=== PATIENT | male | born 1945 | race Caucasian/White ===

== ENCOUNTER 2019-02-06 02:04 | Inpatient (IN) ==
[~2019-02-06 02:04] MED LIST: RAPID SEQUENCE INDUCTION BAG ONE
[2019-02-06 02:23] LABS: Hematocrit (blood only) 34.8 % (42-52); Hemoglobin 11.5 g/dL (14.0-18.0); Mean Corpuscular Hemoglobin 28.7 pg (25-34); Mean Corpuscular Volume 86.8 fL (80-100); Mean Platelet Volume 9.3 fL (7.4-10.4); Platelet Count 322 K/uL (130-400); RDW Coefficient of Variation 14.8 % (11.5-14.5); Red Blood Count 4.01 M/uL (4.7-6.1); White Blood Count 8.66 K/uL (4.8-10.8)
[2019-02-06 02:34] LABS: Partial Thromboplastin Time 26.2 Seconds (21.0-31.0); Prothrombin Time 10.3 Seconds (9.0-12.0)
[2019-02-06 02:44] LABS: Alanine Aminotransferase 17 U/L (12-78); Albumin Level 3.1 gm/dl (3.4-5.0); Aspartate Aminotransferase 11 U/L (15-37); BUN Creatinine Ratio 11.1 (10-20); Blood Urea Nitrogen 16 mg/dl (7-18); Carbon Dioxide 21 mmol/L (21-32); Chloride 102 mmol/L (98-107); Est GFR (African American) 57.7; Est GFR (Non-African American) 49.8; Glucose 159 mg/dl (70-99); Magnesium 1.6 mg/dl (1.8-2.4); Sodium 139 mmol/L (136-145)
[2019-02-06 02:48] LABS: Albumin Globulin Ratio 0.7 (0.9-2); Alkaline Phosphatase 104 U/L (45-117); Bilirubin,Total 0.3 mg/dl (0.2-1); Globulin 4.5 gm/dl (2.5-4.0); Total Protein 7.6 gm/dl (6.4-8.2); Troponin I < 0.015 ng/ml (0-0.045)
[2019-02-06] MEDS ORDERED: NOREPINEPHRINE (Adult) 8 MG in DEXTROSE 5% 500 ML IV PRN (02:50)
[2019-02-06 03:25] LABS: ALC (manual) 5.35 K/uL (1.2-3.4); ANC (manual) 2.56 K/uL (1.4-6.5); Eosinophils # (manual) 0.37 K/uL (0-0.5); Eosinophils % (manual) 4.3 %; Large Granular Lymph # (manua 2.04 K/uL; Large Granular Lymph % (manual) 23.5 %; Lymphocytes # (manual) 3.32 K/uL (1.2-3.4); Lymphocytes % (manual) 38.3 %; Monocytes # (manual) 0.37 K/uL (0.11-0.59); Monocytes % (manual) 4.3 %; Neutrophils # (manual) 2.56 K/uL (1.4-6.5); Neutrophils % (manual) 29.6 %; Polychromasia 1+
[2019-02-06] MEDS ORDERED: ALTEPLASE For Stroke IV STA (03:42)
[2019-02-06] MEDS ORDERED: OPTIRAY 320 125ml IV PRN (03:51)
[2019-02-06] MEDS ORDERED: Alteplase Bolus 9 MG in SYRINGE 0 ML IV ONE (03:53)
[2019-02-06] MEDS ORDERED: ALTEPLASE, RECOMBINANT 81 MG in EMPTY BAG 0 ML IV ONE (03:54)
[2019-02-06] MEDS ORDERED: PRIMARY PLUMSET, PE LINED TUBING, 113 IN, NON-DEHP (2260-0500) IV ONE (03:54)
--- NOTE | 2019-02-06 05:59 | XRay Report ---
ORBIT RADIOGRAPHS 3 VIEWS HISTORY: pre-MRI screening. COMPARISON: None. FINDINGS: There are no radiopaque foreign bodies identified within the orbits. Left common carotid st ent is noted. IMPRESSION: No radiopaque foreign bodies identified within the orbits. Electronically signed by: Segundo Brown M.D. 02/06/2019 5:57 AM
--- NOTE | 2019-02-06 06:11 | CT Scan Report ---
CT head/brain wo con CT DOSE: 614.27 mGy.cm HISTORY: Stroke evaluation TECHNIQUE: Multiaxial CT images of the head were performed without the use of intravenous contrast. A dose lowering technique was utilized adhering to the principles of ALARA. Comparison: None. Findings: The paranasal sinuses and mastoid air cells are clear. The calvarium and skull base are int act. The ventricles and sulci are within normal limits. There is no mass, hematoma, midline shift, or acute infarct. Small old infarcts left superior parietal lobe as well as left occipital lobe. Modera te age-related chronic small vessel change. Impression: No acute intracranial abnormality. Chronic and age-related change. The above report was generated using voice recognition software. It may contain grammatical, syntax or spelling errors. Electronically signed by: Jimy Dejesus M.D. 02/06/2019 6:10 AM
--- NOTE | 2019-02-06 06:22 | XRay Report ---
XR chest 1V portable CLINICAL HISTORY: eval ET tube placement tube position COMPARISON STUDY: No previous studies for comparison. FINDINGS: Moderate cardiomegaly. Probable pleural effusion versus consolidation left base. Prominent pulmonary vasculature. Endotracheal tube 3.5 cm from the chandler. IMPRESSION: Congestive heart failure. Left basilar pleural effusion versus left basilar consolidativ e changes. Endotracheal tube 3.5 cm above the chandler. Several left-sided rib fractures. Postoperative changes thoracolumbar spine. The above report was generated using voice recognition software. It may contain grammatical, syntax or spelling errors. Electronically signed by: Jimy Dejesus M.D. 02/06/2019 6:20 AM
[2019-02-06] MEDS ORDERED: ICU PROTOCOL FOR HYPERGLYCEMIA PRN (06:42)
[2019-02-06] MEDS ORDERED: SENNA 8.6 MG TAB PO PRN (06:42)
[2019-02-06] MEDS ORDERED: SODIUM CHLORIDE 0.9% 1000ML 1,000 ML IV SCH (06:42)
[2019-02-06] MEDS ORDERED: MIDAZOLAM HCL 1 MG/ML 2ML VIAL IV PRN ×2 (06:42→09:57)
[2019-02-06] MEDS ORDERED: PHARMACIST DISCHARGE MED REC CONSULT PRN (06:44)
[2019-02-06] MEDS ORDERED: MIDAZOLAM HCL 5 MG/ML 1 ML VIAL ONE (06:46)
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
[2019-02-06] MEDS ORDERED: MIDAZOLAM HCL 5 MG/ML 1 ML VIAL IV PRN (06:53)
--- NOTE | 2019-02-06 06:54 | CT Scan Report ---
CT angio neck with con, CT angio head w con CLINICAL HISTORY: 73 years-old Male with eval for stroke. Acute strokelike symptoms COMPARISON STUDY: Head CT of same day TECHNIQUE: Following the IV administration of 119 mL of Optiray 320, CT angiogram of the head and nec k was performed from the aortic arch to the skull apex. Images are reviewed in the axial, sagittal, a nd coronal planes. 3-D MIPS images are created and assessed. IV contrast was administered without com plication. All measurements were calculated based on NASCET criteria. A dose lowering technique was utilized adhering to the principles of ALARA. CT DOSE: 714.03 mGy.cm FINDINGS: Study is limited secondary to artifact from spinal fusion hardware. Opacified pulmonary arterial tree is unremarkable. Severe mixed plaque of the thoracic aortic arch. Less than 50% luminal narrowing in volves the origin of the left subclavian artery. 60% luminal narrowing involves the proximal right benton bclavian artery secondary to mixed plaque formation on image 50 series 4 which is proximal to the marilu tebral artery origin. Severe mixed plaque of the bilateral common carotid arteries. Status post endar terectomy of the left carotid bulb and proximal cervical segment left ICA with patency of the graft. There is approximately 50% in graft stenosis noted within the midportion on image 226 series 4 with d ecreased AP dimension of the graft. The remainder of the left ICA appears patent. Calcified plaque of the cavernous, clinoid and supraclinoid segments on the left without high-grade stenosis. Multifocal narrowing throughout the right common carotid artery with occlusion at the level of the ca rotid bulb secondary to severe mixed plaque. Reconstitution of flow within the supraclinoid right ICA , image 413 series 4 likely secondary to collateral flow through the [place]. The middle and anterior cerebral arteries are widely patent and unremarkable. Mixed plaque at the origin of the right vertebral artery results in greater than 50% luminal narrowin g, degree of stenosis difficult to quantify secondary to adjacent artifact and calcified plaque. Mult ifocal approximately 50% luminal narrowing involves the V2 segment right vertebral artery secondary t o calcified plaque. Calcified plaque also involves the origin of the left vertebral artery without hi gh-grade stenosis. Basilar artery is patent and within normal limits. The bilateral posterior cerebra l arteries are also within normal limits and are widely patent. Cerebral venous sinuses appear unrema rkable. No abnormal intracranial enhancement. Patchy white matter hypodensities suggest chronic micro vascular ischemic disease. Bilateral pleural effusions with biapical dependent consolidation. Secretions are noted within the tr achea. Endotracheal tube noted within the trachea terminating above the chandler. Secretions are seen t hroughout the airway. Fusion hardware of the thoracic spine. Degenerative changes of the spine and sh oulders. Mild mucosal thickening of the ethmoid air cells. IMPRESSION: 1. Severe multifocal atherosclerotic vascular disease as above. Severe mixed plaque of the distal rig ht common carotid artery and right carotid bulb results in high-grade stenosis of the distal common c arotid artery with occlusion of the right ICA. There is reconstitution of flow within the supraclinoi d segment, likely secondary to collateral flow via the [place]. 2. 60% luminal narrowing of the proximal right subclavian artery. Correlate clinically to exclude sub clavian steal. 3. Postsurgical changes from prior left carotid endarterectomy. There is approximately 50% narrowing about the midportion of the graft. 4. No aneurysm or dissection. 5. Bilateral pleural effusions with dependent consolidation. 6. Endotracheal tube terminates above the chandler. The above report was generated using voice recognition software. It may contain grammatical, syntax o r spelling errors. Electronically signed by: Bhargav Gold M.D. 02/06/2019 6:53 AM
[2019-02-06] MEDS ORDERED: DEXTROSE 50% 50 ML SYRINGE IV PRN (07:00)
[2019-02-06] MEDS ORDERED: CARBOHYDRATES FOR HYPOGLYCEMIA PO PRN (07:00)
[2019-02-06] MEDS ORDERED: GLUCOSE 40% GEL 15 GM TUBE PO PRN (07:00)
[2019-02-06] MEDS ORDERED: GLUCOSE 10 TABS/TUBE PO PRN (07:00)
[2019-02-06] MEDS ORDERED: GLUCAGON FOR INJ 1 MG VIAL IM PRN (07:00)
--- NOTE | 2019-02-06 07:00 | Magnetic Resonance Report ---
MR angio head wo con HISTORY: 73 years-old Male cva acute strokelike symptoms COMPARISON: CTA head neck of same day TECHNIQUE: MRI of the head was obtained with 3-D [id number] sequencing and MIP reformats. All gia surements were obtained according to NASCET criteria. FINDINGS: [employer] localizer images demonstrate no gross extracranial abnormality. Left ICA appears normal and is widely patent. Occlusion of the imaged right ICA with reconstitution of flow within the supraclinoid segment, likely secondary to collateralization through the [place]. The bilateral middle and anterior cerebral arteries appear patent. Vertebral arteries, basilar and posterior cerebral arterie s appear unremarkable. No aneurysm or dissection. 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 Expected changes of the left lateral ventricle. Micrometallic artifact of the left temporal scalp. Mild mucosal thickening of the ethmoid air cells. IMPRESSION: 1. Occlusion of the right ICA with reconstitution of flow within the supraclinoid segment, likely sec ondary to collateral flow through the [place]. 2. No aneurysm or dissection. The above report was generated using voice recognition software. It may contain grammatical, syntax o r spelling errors. Electronically signed by: Bhargav Gold M.D. 02/06/2019 6:58 AM
--- NOTE | 2019-02-06 07:04 | Emergency Department Note ---
Entered by Roberta Corley acting as a scribe for History of Present Illness General Chief complaint: Seizure Stated complaint: SEIZURE Time Seen by Provider: 02/06/19 02:10 Source: patient History of Present Illness Onset (ago): hour(s) (just prior to arrival ) Location: head Pain Consistency: + other (episode ) Quality: + other (confusion) Associated symptoms: + other (positive now resolved seizure; negative slurred speech; negative facial droop); no chest pain and no shortness of breath The patient is a 73 year old male who presents to the Emergency Room with complaints of an episode of confusion that began just prior to arrival, per EMS. EMS states that the patient was unable to remember his address and other things and his was concerned that he was having another stroke so she called EMS. Per EMS, the patient then had a seizure for approximately 40 seconds in front of EMS and then was using his abdomen to breathe. EMS states that he was put on high flow oxygen before being intubated. EMS denies slurred speech, facial droop, chest pain, and shortness of breath. Per EMS the patient is on a blood thinner. Per the patient's medical records, he was seen in [facility] for a carotid artery stent placement. Home Medications Home Medications Medication Instructions Recorded Confirmed Type acetaminophen 975 mg PO TID PRN 02/06/19 02/06/19 History ascorbic acid (vitamin C) 500 mg PO BID 02/06/19 02/06/19 History aspirin 325 mg PO DAILY 02/06/19 02/06/19 History atorvastatin 40 mg PO HS 02/06/19 02/06/19 History docusate sodium 100 mg PO DAILY 02/06/19 02/06/19 History famotidine 20 mg PO BID 02/06/19 02/06/19 History ferrous sulfate 325 mg PO TIDM 02/06/19 02/06/19 History folic acid 1 mg PO DAILY 02/06/19 02/06/19 History furosemide 40 mg PO QAM 02/06/19 02/06/19 History glipizide 10 mg PO BIDM 02/06/19 02/06/19 History levothyroxine 25 mcg PO QAM 02/06/19 02/06/19 History metformin 1,000 mg PO BID 02/06/19 02/06/19 History metoprolol succinate 12.5 mg PO DAILY 02/06/19 02/06/19 History sennosides [senna] 8.6 mg PO DAILY PRN 02/06/19 02/06/19 History ticagrelor 90 mg PO BID 02/06/19 02/06/19 History tramadol 50 mg PO Q4 PRN 02/06/19 02/06/19 History Allergies Allergy/AdvReac Type Severity Reaction Status Date / Time No Known Allergies Allergy Verified 02/06/19 02:58 Past Med/Surg History Medical History CHF (congestive heart failure) CVA (cerebral vascular accident) History of common carotid artery stent placement Family History Other No pertinent family history in first degree relatives Social History Preferred Language: Burkinan Beliefs That Will Affect Care: None Current Living Situation: Spouse Smoking Status: Never smoker Hx Alcohol Use: No Hx Substance Use: No Review of Systems See HPI for pertinent positives & negatives. and A total of 10 systems reviewed and were otherwise negative Physical Exam Vital Signs Vital Signs - 24 hr 02/06/19 02:08 02/06/19 02:10 02/06/19 02:13 Temperature 37.2 C Temperature Source Oral Pulse Rate 108 H 110 H Pulse Rate from SpO2 Sensor 108 H 111 H Respiratory Rate 14 20 Respiratory Effort / Characteristics Mechanically Ventilated Respiratory Depth Normal Respiratory Pattern Regular Blood Pressure 90/62 L 92/60 L 90/62 L Blood Pressure Mean 70 64 71 Blood Pressure Position Lying Pulse Oximetry 99 100 100 Oxygen Delivery Method Mechanical Vent Fraction of Inspired Oxygen Sepsis Recent Fever Within 48 Hours No Sepsis Action Taken by Nursing No Action Required End-Tidal CO2 02/06/19 02:25 02/06/19 02:26 02/06/19 02:30 Temperature Temperature Source Pulse Rate 105 H 104 H Pulse Rate from SpO2 Sensor 105 H 105 H Respiratory Rate 23 25 H Respiratory Effort / Characteristics Respiratory Depth Respiratory Pattern Blood Pressure 102/64 82/55 L Blood Pressure Mean 75 60 Blood Pressure Position Pulse Oximetry 100 100 98 Oxygen Delivery Method Mechanical Vent Fraction of Inspired Oxygen 60 Sepsis Recent Fever Within 48 Hours Sepsis Action Taken by Nursing End-Tidal CO2 02/06/19 02:35 02/06/19 02:41 02/06/19 02:43 Temperature Temperature Source Pulse Rate 105 H 102 H 103 H Pulse Rate from SpO2 Sensor 102 H Respiratory Rate 25 H Respiratory Effort / Characteristics Respiratory Depth Respiratory Pattern Blood Pressure 73/51 L 78/48 L Blood Pressure Mean 56 52 Blood Pressure Position Pulse Oximetry 99 98 Oxygen Delivery Method Fraction of Inspired Oxygen 50 Sepsis Recent Fever Within 48 Hours Sepsis Action Taken by Nursing End-Tidal CO2 35 32 31 02/06/19 02:50 02/06/19 02:59 02/06/19 03:00 Temperature Temperature Source Pulse Rate 101 H 101 H 102 H Pulse Rate from SpO2 Sensor 101 H 101 H 102 H Respiratory Rate Respiratory Effort / Characteristics Respiratory Depth Respiratory Pattern Blood Pressure 77/44 L 74/43 L 81/52 L Blood Pressure Mean 55 51 69 Blood Pressure Position Pulse Oximetry 97 96 97 Oxygen Delivery Method Fraction of Inspired Oxygen Sepsis Recent Fever Within 48 Hours Sepsis Action Taken by Nursing End-Tidal CO2 32 32 33 02/06/19 03:07 02/06/19 03:10 02/06/19 03:14 Temperature Temperature Source Pulse Rate 99 H 99 H 96 H Pulse Rate from SpO2 Sensor 99 H 99 H 96 H Respiratory Rate Respiratory Effort / Characteristics Respiratory Depth Respiratory Pattern Blood Pressure 95/55 L 78/47 L 95/61 L Blood Pressure Mean 66 52 78 Blood Pressure Position Pulse Oximetry 98 98 98 Oxygen Delivery Method Fraction of Inspired Oxygen Sepsis Recent Fever Within 48 Hours Sepsis Action Taken by Nursing End-Tidal CO2 33 31 32 02/06/19 03:16 02/06/19 03:18 02/06/19 03:20 Temperature Temperature Source Pulse Rate 92 H 93 H 93 H Pulse Rate from SpO2 Sensor 93 H 94 H 93 H Respiratory Rate Respiratory Effort / Characteristics Respiratory Depth Respiratory Pattern Blood Pressure 106/62 122/67 129/71 Blood Pressure Mean 79 78 84 Blood Pressure Position Pulse Oximetry 98 98 99 Oxygen Delivery Method Fraction of Inspired Oxygen Sepsis Recent Fever Within 48 Hours Sepsis Action Taken by Nursing End-Tidal CO2 31 34 34 02/06/19 03:22 02/06/19 03:24 02/06/19 03:26 Temperature Temperature Source Pulse Rate 91 H 91 H 90 Pulse Rate from SpO2 Sensor 91 H 91 H 90 Respiratory Rate Respiratory Effort / Characteristics Respiratory Depth Respiratory Pattern Blood Pressure 113/71 112/58 L 82/52 L Blood Pressure Mean 81 68 61 Blood Pressure Position Pulse Oximetry 99 99 99 Oxygen Delivery Method Fraction of Inspired Oxygen Sepsis Recent Fever Within 48 Hours Sepsis Action Taken by Nursing End-Tidal CO2 33 32 30 02/06/19 03:28 02/06/19 03:30 02/06/19 03:32 Temperature Temperature Source Pulse Rate 91 H 94 H 93 H Pulse Rate from SpO2 Sensor 91 H 95 H 93 H Respiratory Rate Respiratory Effort / Characteristics Respiratory Depth Respiratory Pattern Blood Pressure 74/47 L 104/64 137/77 Blood Pressure Mean 54 78 91 Blood Pressure Position Pulse Oximetry 99 99 99 Oxygen Delivery Method Fraction of Inspired Oxygen Sepsis Recent Fever Within 48 Hours Sepsis Action Taken by Nursing End-Tidal CO2 30 33 34 02/06/19 03:34 02/06/19 03:36 02/06/19 03:38 Temperature Temperature Source Pulse Rate 92 H 92 H 92 H Pulse Rate from SpO2 Sensor 92 H 92 H 92 H Respiratory Rate Respiratory Effort / Characteristics Respiratory Depth Respiratory Pattern Blood Pressure 147/77 H 149/79 H 154/75 H Blood Pressure Mean 98 100 102 Blood Pressure Position Pulse Oximetry 100 100 100 Oxygen Delivery Method Fraction of Inspired Oxygen Sepsis Recent Fever Within 48 Hours Sepsis Action Taken by Nursing End-Tidal CO2 33 34 35 02/06/19 03:40 02/06/19 03:42 02/06/19 03:44 Temperature Temperature Source Pulse Rate 92 H 91 H 91 H Pulse Rate from SpO2 Sensor 92 H 91 H 91 H Respiratory Rate Respiratory Effort / Characteristics Respiratory Depth Respiratory Pattern Blood Pressure 147/69 H 161/86 H 154/77 H Blood Pressure Mean 106 102 112 Blood Pressure Position Pulse Oximetry 100 100 100 Oxygen Delivery Method Fraction of Inspired Oxygen Sepsis Recent Fever Within 48 Hours Sepsis Action Taken by Nursing End-Tidal CO2 35 34 33 02/06/19 03:46 02/06/19 03:48 02/06/19 03:50 Temperature Temperature Source Pulse Rate 89 88 89 Pulse Rate from SpO2 Sensor 90 92 H 89 Respiratory Rate Respiratory Effort / Characteristics Respiratory Depth Respiratory Pattern Blood Pressure 153/82 H 150/72 H 156/74 H Blood Pressure Mean 91 90 89 Blood Pressure Position Pulse Oximetry 100 100 100 Oxygen Delivery Method Fraction of Inspired Oxygen Sepsis Recent Fever Within 48 Hours Sepsis Action Taken by Nursing End-Tidal CO2 34 34 33 02/06/19 03:52 02/06/19 03:54 02/06/19 03:56 Temperature Temperature Source Pulse Rate 87 88 89 Pulse Rate from SpO2 Sensor 87 87 89 Respiratory Rate Respiratory Effort / Characteristics Respiratory Depth Respiratory Pattern Blood Pressure 149/76 H 151/69 H 153/72 H Blood Pressure Mean 84 90 92 Blood Pressure Position Pulse Oximetry 100 100 100 Oxygen Delivery Method Fraction of Inspired Oxygen Sepsis Recent Fever Within 48 Hours Sepsis Action Taken by Nursing End-Tidal CO2 33 32 34 02/06/19 03:58 02/06/19 04:00 02/06/19 04:01 Temperature Temperature Source Pulse Rate 89 91 H Pulse Rate from SpO2 Sensor 90 92 H Respiratory Rate Respiratory Effort / Characteristics Respiratory Depth Respiratory Pattern Blood Pressure 153/76 H 159/75 H Blood Pressure Mean 93 102 Blood Pressure Position Pulse Oximetry 99 97 Oxygen Delivery Method Fraction of Inspired Oxygen Sepsis Recent Fever Within 48 Hours Sepsis Action Taken by Nursing End-Tidal CO2 35 34 02/06/19 04:22 02/06/19 04:23 02/06/19 04:24 Temperature Temperature Source Pulse Rate 112 H 113 H 109 H Pulse Rate from SpO2 Sensor 108 H 113 H 109 H Respiratory Rate Respiratory Effort / Characteristics Respiratory Depth Respiratory Pattern Blood Pressure 160/84 H 168/89 H Blood Pressure Mean 103 106 Blood Pressure Position Pulse Oximetry 100 100 99 Oxygen Delivery Method Fraction of Inspired Oxygen Sepsis Recent Fever Within 48 Hours Sepsis Action Taken by Nursing End-Tidal CO2 101 37 02/06/19 04:26 02/06/19 04:28 02/06/19 04:30 Temperature Temperature Source Pulse Rate 107 H 106 H 107 H Pulse Rate from SpO2 Sensor 107 H 106 H 107 H Respiratory Rate Respiratory Effort / Characteristics Respiratory Depth Respiratory Pattern Blood Pressure 172/95 H 180/95 H 154/81 H Blood Pressure Mean 119 112 90 Blood Pressure Position Pulse Oximetry 98 98 97 Oxygen Delivery Method Fraction of Inspired Oxygen Sepsis Recent Fever Within 48 Hours Sepsis Action Taken by Nursing End-Tidal CO2 36 38 37 02/06/19 04:32 02/06/19 04:34 02/06/19 04:36 Temperature Temperature Source Pulse Rate 106 H 107 H Pulse Rate from SpO2 Sensor 106 H 108 H 123 H Respiratory Rate Respiratory Effort / Characteristics Respiratory Depth Respiratory Pattern Blood Pressure 155/81 H 147/77 H Blood Pressure Mean 112 87 Blood Pressure Position Pulse Oximetry 97 96 96 Oxygen Delivery Method Fraction of Inspired Oxygen Sepsis Recent Fever Within 48 Hours Sepsis Action Taken by Nursing End-Tidal CO2 37 38 29 02/06/19 04:38 02/06/19 04:40 02/06/19 04:41 Temperature Temperature Source Pulse Rate 141 H 123 H 117 H Pulse Rate from SpO2 Sensor 143 H 123 H 117 H Respiratory Rate Respiratory Effort / Characteristics Respiratory Depth Respiratory Pattern Blood Pressure 162/88 H Blood Pressure Mean 98 Blood Pressure Position Pulse Oximetry 92 98 97 Oxygen Delivery Method Fraction of Inspired Oxygen Sepsis Recent Fever Within 48 Hours Sepsis Action Taken by Nursing End-Tidal CO2 54 50 47 02/06/19 04:42 02/06/19 04:44 02/06/19 04:46 Temperature Temperature Source Pulse Rate 116 H 115 H 114 H Pulse Rate from SpO2 Sensor 116 H 116 H 115 H Respiratory Rate Respiratory Effort / Characteristics Respiratory Depth Respiratory Pattern Blood Pressure 151/79 H 138/74 129/69 Blood Pressure Mean 90 93 89 Blood Pressure Position Pulse Oximetry 96 96 95 Oxygen Delivery Method Fraction of Inspired Oxygen Sepsis Recent Fever Within 48 Hours Sepsis Action Taken by Nursing End-Tidal CO2 48 47 43 02/06/19 04:48 02/06/19 04:50 02/06/19 04:52 Temperature Temperature Source Pulse Rate 113 H 113 H 113 H Pulse Rate from SpO2 Sensor 113 H 113 H 113 H Respiratory Rate Respiratory Effort / Characteristics Respiratory Depth Respiratory Pattern Blood Pressure 121/64 113/62 112/61 Blood Pressure Mean 83 70 75 Blood Pressure Position Pulse Oximetry 95 95 95 Oxygen Delivery Method Fraction of Inspired Oxygen Sepsis Recent Fever Within 48 Hours Sepsis Action Taken by Nursing End-Tidal CO2 44 41 39 02/06/19 04:54 02/06/19 04:56 02/06/19 04:58 Temperature Temperature Source Pulse Rate 112 H 112 H 113 H Pulse Rate from SpO2 Sensor 112 H 111 H 112 H Respiratory Rate Respiratory Effort / Characteristics Respiratory Depth Respiratory Pattern Blood Pressure 112/60 108/58 L 116/62 Blood Pressure Mean 67 76 74 Blood Pressure Position Pulse Oximetry 95 95 95 Oxygen Delivery Method Fraction of Inspired Oxygen Sepsis Recent Fever Within 48 Hours Sepsis Action Taken by Nursing End-Tidal CO2 38 37 37 02/06/19 05:00 02/06/19 05:02 02/06/19 05:04 Temperature Temperature Source Pulse Rate 113 H 113 H 111 H Pulse Rate from SpO2 Sensor 112 H 112 H 111 H Respiratory Rate Respiratory Effort / Characteristics Respiratory Depth Respiratory Pattern Blood Pressure 109/61 78/67 L 111/60 Blood Pressure Mean 72 70 68 Blood Pressure Position Pulse Oximetry 94 95 94 Oxygen Delivery Method Fraction of Inspired Oxygen Sepsis Recent Fever Within 48 Hours Sepsis Action Taken by Nursing End-Tidal CO2 38 39 38 02/06/19 05:06 02/06/19 05:08 02/06/19 05:10 Temperature Temperature Source Pulse Rate 110 H 109 H 109 H Pulse Rate from SpO2 Sensor 110 H 107 H 108 H Respiratory Rate Respiratory Effort / Characteristics Respiratory Depth Respiratory Pattern Blood Pressure 95/63 L 94/58 L 107/61 Blood Pressure Mean 69 65 76 Blood Pressure Position Pulse Oximetry 94 94 94 Oxygen Delivery Method Fraction of Inspired Oxygen Sepsis Recent Fever Within 48 Hours Sepsis Action Taken by Nursing End-Tidal CO2 37 38 38 02/06/19 05:12 02/06/19 05:14 02/06/19 05:15 Temperature Temperature Source Pulse Rate 107 H 106 H 103 H Pulse Rate from SpO2 Sensor 106 H 107 H 103 H Respiratory Rate Respiratory Effort / Characteristics Respiratory Depth Respiratory Pattern Blood Pressure 125/76 152/84 H Blood Pressure Mean 82 93 Blood Pressure Position Pulse Oximetry 95 95 96 Oxygen Delivery Method Fraction of Inspired Oxygen Sepsis Recent Fever Within 48 Hours Sepsis Action Taken by Nursing End-Tidal CO2 38 37 39 02/06/19 05:16 02/06/19 05:18 Temperature Temperature Source Pulse Rate 104 H 103 H Pulse Rate from SpO2 Sensor 104 H 103 H Respiratory Rate Respiratory Effort / Characteristics Respiratory Depth Respiratory Pattern Blood Pressure 158/88 H 159/89 H Blood Pressure Mean 101 112 Blood Pressure Position Pulse Oximetry 96 96 Oxygen Delivery Method Fraction of Inspired Oxygen Sepsis Recent Fever Within 48 Hours Sepsis Action Taken by Nursing End-Tidal CO2 39 39 General: GCS 3T. HEENT: Head - normocephalic and atraumatic. Pupils are pinpoint and nonreactive, equal and round. Extraocular eye muscles are intact, and sclera are anicteric. Nose - moist nasal mucosa without discharge. Mouth - moist buccal mucosa. Oropharynx is nonerythematous and there is no tonsillar exudate or edema noted. Neck: Supple; no JVD, nuchal rigidity, cervical lymphadenopathy. Heart: Tachycardic rate and regular rhythm. There is a normal S1 and S2 with no murmurs, clicks, or gallops appreciated. Lungs: Clear to auscultation bilaterally with no wheezes, rales, or rhonchi. Abdomen: Soft, completely nontender, nondistended, with good bowel sounds. There are no palpable pulsatile masses or hepatosplenomegaly. There is no guarding, rigidity, or rebound noted. Extremities: 1+ pedal edema of the bilateral lower extremities. No evidence of cyanosis or clubbing. There are easily palpable peripheral pulses. Skin: Skin is pale and diaphoretic. Warm with good turgor and no rashes. Neuro: GCS-3T; the patient would not follow any commands or opens eyes. Course Course 0204: Past medical records reviewed. The patient was evaluated in room B1. A complete history and physical exam was performed. I did review records from [facility] that the family had with them. I did review previous electronic medical records. 0222: I talked to the patient's family who states that the patient was at his baseline today. They state that the patient was discharged on Wednesday after an el ective carotid artery stent performed at [facility] on Wednesday. The patient is on Brilinta. The patient's states that the patient woke up tonight and peed in his urinal which is not unusual for him. The patient's states that the patient then began talking to her and was not making sense. The patient's then asked the patient to squeeze his right hand and move his right leg and he was unable to. The patient was a major trauma several months ago and spent 27 days in [facility]. He had a stroke at this time and has right arm and right leg weakness at baseline from this. The patient walks with a walker normally. The patient's last known well time was 11 PM 0248: The patient is beginning to wake up. He is able to squeeze his left but not right hand. He is unable to wiggle his left toes and would not follow other commands. 0249: The patient remained hypotensive and I ordered Levophed 8 mg 508 mls @ 22.46 mls/hr IV. 0255: I discussed the case with Alpohnso Hsu with the [facility] service will come down to evaluate the patient. 0301: I checked on and updated the patient's family. 0308: The patient is now moving his left arm, left leg, and has slight movement of his right leg. 0314: I discussed the case with Dr. Olmos [facility] is going to evaluate the patient. 0323: Per the patient's , the patient was hypotensive after his procedure and needed medications to increase his blood pressure rather than being hypertensive like she originally believed. 0344: Dr. Olmos [facility] spoke with the patient's family through [facility] and reviewed the benefits and risks of tPA. 0354: Ordered Alteplase 9 mls @ 9 mls/min IV. 0355: Ordered Alteplase 81 mls @ 81 mls/hr IV. 0402: Upon reevaluation, the patient is resting. He is not bleeding from his previous surgical site, his right groin. 0431: There is some blood coming from the patient's ET tube. 0435: I discussed the case with Dr. Umana Hospitalist who accepts the patient for further evaluation. 0435: The patient is having a tonic clonic seizure that persisted. He has a normal blood pressure. The patient was given 5 of Versed. I gave the rest of the report to Dr. Umana Hospitalist at bedside. 0446: I discussed the case with Pancho and they discussed the results of the patient's CTA of the head and neck. 0447: I discussed the case with Dr. Olmos [facility] who agrees with giving the patient Keppra for his repeated seizures. Administered Medications Atorvastatin Calcium (Lipitor) 40 mg PO HS [facility] Stop: 03/08/19 20:59 Last Admin: 02/06/19 21:06 Dose: Not Given Documented by: [id number] Docusate Sodium (Colace) 100 mg PO DAILY [facility] Stop: 03/08/19 08:59 Last Admin: 02/06/19 11:12 Dose: Not Given Documented by: [id number] Folic Acid (Folvite) 1 mg PO DAILY [facility] Stop: 03/08/19 08:59 Last Admin: 02/06/19 11:12 Dose: Not Given Documented by: [id number] Gadobutrol (Gadavist 65ml) 11.5 ml IV ONCE PRN PRN Reason: Interaction Checking Stop: 02/10/19 07:10 Last Admin: 02/06/19 07:11 Dose: 11.5 ml Documented by: [id number] Norepinephrine Bitartrate 8 mg (/ Dextrose) 508 mls @ 0 mls/hr IV .Q0M PRN; Protocol PRN Reason: TITRATE Stop: 03/08/19 02:49 Last Titration: 02/07/19 04:00 Dose: 0 mcg/kg/min, 0 mls/hr Documented by: [id number] Titration: 02/07/19 02:00 Dose: 0.01 mcg/kg/min, 4.5 mls/hr Documented by: [id number] Titration: 02/07/19 01:37 Dose: 0.03 mcg/kg/min, 13.5 mls/hr Documented by: [id number] Titration: 02/06/19 19:24 Dose: 0.05 mcg/kg/min, 22.5 mls/hr Documented by: [id number] Cosigned by: [id number] Titration: 02/06/19 18:30 Dose: 0.05 mcg/kg/min, 22.5 mls/hr Documented by: [id number] Cosigned by: [id number] Titration: 02/06/19 17:30 Dose: 0.06 mcg/kg/min, 27 mls/hr Documented by: [id number] Cosigned by: [id number] Titration: 02/06/19 16:30 Dose: 0.07 mcg/kg/min, 31.4 mls/hr Documented by: [id number] Cosigned by: [id number] Titration: 02/06/19 15:30 Dose: 0.08 mcg/kg/min, 35.9 mls/hr Documented by: [id number] Cosigned by: [id number] Titration: 02/06/19 15:07 Dose: 0.09 mcg/kg/min, 40.4 mls/hr Documented by: [id number] Cosigned by: [id number] Titration: 02/06/19 14:45 Dose: 0.09 mcg/kg/min, 40.4 mls/hr Documented by: [id number] Titration: 02/06/19 13:57 Dose: 0.07 mcg/kg/min, 31.4 mls/hr Documented by: [id number] Titration: 02/06/19 11:11 Dose: 0.06 mcg/kg/min, 27 mls/hr Documented by: [id number] Titration: 02/06/19 10:12 Dose: 0.04 mcg/kg/min, 18 mls/hr Documented by: [id number] Titration: 02/06/19 09:16 Dose: 0.03 mcg/kg/min, 13.5 mls/hr Documented by: [id number] Titration: 02/06/19 08:45 Dose: 0.02 mcg/kg/min, 9 mls/hr Documented by: [id number] Titration: 02/06/19 08:01 Dose: 0.01 mcg/kg/min, 4.5 mls/hr Documented by: [id number] Titration: 02/06/19 07:45 Dose: 0.02 mcg/kg/min, 9 mls/hr Documented by: [id number] Titration: 02/06/19 04:28 Dose: 0 mcg/kg/min, 0 mls/hr Documented by: [id number] Titration: 02/06/19 03:12 Dose: 0.05 mcg/kg/min, 22.5 mls/hr Documented by: [id number] Admin: 02/06/19 03:01 Dose: 0.02 mcg/kg/min, 9 mls/hr Documented by: [id number] Cosigned by: [id number] Levetiracetam 750 mg/ Dextrose 107.5 mls @ 440 mls/hr IV Q12H [facility] Stop: 03/08/19 08:59 Last Admin: 02/07/19 05:16 Dose: 440 mls/hr Documented by: [id number] Infusion: 02/06/19 19:40 Dose: 440 mls/hr Documented by: [id number] Admin: 02/06/19 19:25 Dose: 440 mls/hr Documented by: [id number] Levothyroxine Sodium 12.5 mcg/ (Syringe) 0.625 mls @ 2 mls/min IV DAILY@0900 [facility] Stop: 03/08/19 08:59 Last Admin: 02/06/19 08:29 Dose: 2 mls/min Documented by: [id number] Famotidine 20 mg/ Syringe 5 mls @ 2.5 mls/min IV BID [facility] Stop: 03/08/19 08:59 Last Admin: 02/06/19 21:18 Dose: 2.5 mls/min Documented by: [id number] Admin: 02/06/19 08:29 Dose: 2.5 mls/min Documented by: [id number] Parenteral Electrolytes (Normosol-R) 1,000 mls @ 50 mls/hr IV .Q20H [facility] Stop: 03/08/19 09:59 Last Admin: 02/07/19 05:16 Dose: 100 mls/hr Documented by: [id number] Infusion: 02/07/19 05:16 Dose: 100 mls/hr Documented by: [id number] Admin: 02/06/19 19:25 Dose: 100 mls/hr Documented by: [id number] Infusion: 02/06/19 19:25 Dose: 100 mls/hr Documented by: [id number] Admin: 02/06/19 10:51 Dose: 100 mls/hr Documented by: [id number] Insulin Aspart (Novolog Flexpen) 0 units SC Q6 [facility] Stop: 03/08/19 17:59 Last Admin: 02/06/19 23:57 Dose: 1 units Documented by: [id number] Cosigned by: [id number] Admin: 02/06/19 18:50 Dose: Not Given Documented by: [id number] Cosigned by: [id number] Discontinued Medications Alteplase, Recombinant (Activase For Stroke) 1 ea IV NOW STA; Protocol Stop: 02/06/19 03:43 Last Admin: 02/06/19 07:52 Dose: Not Given Documented by: [id number] Alteplase, Recombinant 9 mg/ (Syringe) 9 mls @ 9 mls/min IV ONCE ONE Stop: 02/06/19 03:54 Last Admin: 02/06/19 03:51 Dose: 9 mls/min Documented by: [id number] Cosigned by: [id number] Alteplase, Recombinant 81 mg/ (EMPTY BAG) 81 mls @ 81 mls/hr IV ONCE ONE Stop: 02/06/19 03:55 Last Infusion: 02/06/19 04:59 Dose: 0 mls/hr Documented by: [id number] Cosigned by: [id number] Admin: 02/06/19 03:53 Dose: 81 mls/hr Documented by: [id number] Cosigned by: [id number] Levetiracetam 1,000 mg/ (Dextrose) 110 mls @ 440 mls/hr IV NOW STA Stop: 02/06/19 05:04 Last Infusion: 02/06/19 11:12 Dose: 0 mls/hr Documented by: [id number] Admin: 02/06/19 05:06 Dose: 440 mls/hr Documented by: [id number] Sodium Chloride (Nss 1000ml) 1,000 mls @ 125 mls/hr IV .Q8H [facility] Stop: 03/08/19 06:41 Last Infusion: 02/06/19 10:52 Dose: 0 mls/hr Documented by: [id number] Admin: 02/06/19 08:02 Dose: 125 mls/hr Documented by: [id number] Magnesium Sulfate/Dextrose (Magnesium Sulfate / D5w) 1 gm in 100 mls @ 50 mls/hr IV Q2H [facility] Stop: 02/06/19 13:59 Last Infusion: 02/06/19 13:49 Dose: 0 mls/hr Documented by: [id number] Admin: 02/06/19 12:02 Dose: 50 mls/hr Documented by: [id number] Infusion: 02/06/19 12:02 Dose: 50 mls/hr Documented by: [id number] Infusion: 02/06/19 12:02 Dose: 50 mls/hr Documented by: [id number] Admin: 02/06/19 10:51 Dose: 50 mls/hr Documented by: [id number] Insulin Aspart (Novolog Flexpen) 0 units SC ACHS DHAVAL Stop: 03/08/19 07:29 Last Admin: 02/06/19 11:52 Dose: 2 units Documented by: [id number] Cosigned by: [id number] Admin: 02/06/19 08:29 Dose: 1 units Documented by: [id number] Cosigned by: [id number] Ioversol (Optiray 320 125ml) 125 ml IV ONCE PRN PRN Reason: Interaction Checking Stop: 02/10/19 03:50 Last Admin: 02/06/19 03:51 Dose: 119 ml Documented by: [id number] Midazolam HCl (Versed) Confirm Administered Dose 5 mg .ROUTE .STK-MED ONE Stop: 02/06/19 06:47 Last Admin: 02/06/19 08:04 Dose: 5 mg Documented by: [id number] Midazolam HCl (Versed) 2 mg IV Q2H PRN PRN Reason: Agitation Stop: 03/08/19 06:52 Last Admin: 02/06/19 06:50 Dose: 2 mg Documented by: [id number] Miscellaneous () Confirm Administered Dose 1 ea .ROUTE .STK-MED ONE Stop: 02/06/19 02:02 Last Admin: 02/06/19 02:29 Dose: 1 ea Documented by: [id number] Perflutren Lipid Microsphere (Definity) 2 ml IV ONCE ONE Stop: 02/06/19 08:46 Last Admin: 02/06/19 08:47 Dose: 2 ml Documented by: [id number] Critical Care Time Critical Care Time: Yes Total Critical Care Time: 150 I have personally spent 150 minutes of critical care time in the direct management of this patient. This includes bedside care, interpretation of diagnostic studies, and testing, discussion with consultants, patient, and family members, and other required patient management activities. This 150 minutes is in excess of all separately billable procedures. Medical Decision Making Differential Diagnosis Differential diagnoses include acute CVA, acute STEMI, seizure, hypoxia, hypotension, TIA, and others were considered. Medical Records Attestation: I reviewed the patient's medical records. Home Medications Current Medication List: was personally reviewed by me Laboratory Data Attestation: I reviewed the patient's lab results. Result diagrams: 02/06/19 01:55 02/07/19 04:29 Lab Results 02/06/19 02/06/19 02/06/19 Range/Units 01:55 01:55 01:55 WBC 8.66 (4.8-10.8) K/uL RBC 4.01 L (4.7-6.1) M/uL Hgb 11.5 L (14.0-18.0) g/dL Hct 34.8 L (42-52) % MCV 86.8 (80-100) fL MCH 28.7 (25-34) pg MCHC 33.0 (32-36) g/dL RDW Std Deviation 47.0 H (36.4-46.3) fL RDW Coeff of Marva 14.8 H (11.5-14.5) % Plt Count 322 (130-400) K/uL MPV 9.3 (7.4-10.4) fL Neutrophils % (Manual) 29.6 % Lymphocytes % (Manual) 38.3 % Monocytes % (Manual) 4.3 % Eosinophils % (Manual) 4.3 % Neutrophils # (Manual) 2.56 (1.4-6.5) K/uL Total Absolute Neuts 2.56 (1.4-6.5) K/uL Lymphocytes # (Manual) 3.32 (1.2-3.4) K/uL Total Abs Lymphocytes 5.35 H (1.2-3.4) K/uL Monocytes # (Manual) 0.37 (0.11-0.59) K/uL Eosinophils # (Manual) 0.37 (0-0.5) K/uL Large Granular Lymphs 23.5 % # Lrg Granular Lymphs 2.04 K/uL Blood Smear Review Polychromasia 1+ PT 10.3 (9.0-12.0) Seconds INR 1.0 (0.9-1.1) APTT 26.2 (21.0-31.0) Seconds PTT Ratio 1.0 Sodium 139 (136-145) mmol/L Potassium 4.0 (3.5-5.1) mmol/L Chloride 102 (98-107) mmol/L Carbon Dioxide 21 (21-32) mmol/L Anion Gap 16.0 H (3-11) BUN 16 (7-18) mg/dl Creatinine 1.41 H (0.6-1.4) mg/dl Est Cr Clr Drug Dosing Not Reportable Est GFR ( Amer) 57.7 Est GFR (Non-Af Amer) 49.8 BUN/Creatinine Ratio 11.1 (10-20) Glucose 159 H (70-99) mg/dl POC Glucose (70-99) Calcium 9.0 (8.5-10.1) mg/dl Magnesium 1.6 L (1.8-2.4) mg/dl Total Bilirubin 0.3 (0.2-1) mg/dl AST 11 L (15-37) U/L ALT 17 (12-78) U/L Alkaline Phosphatase 104 (45-117) U/L Troponin I < 0.015 (0-0.045) ng/ml Total Protein 7.6 (6.4-8.2) gm/dl Albumin 3.1 L (3.4-5.0) gm/dl Globulin 4.5 H (2.5-4.0) gm/dl Albumin/Globulin Ratio 0.7 L (0.9-2) Hepatitis C Ab Screen (Neg) Blood Type Antibody Screen Antibody Identification Antibody ID Comment 02/06/19 02/06/19 02/06/19 Range/Units 01:55 02:29 02:38 WBC (4.8-10.8) K/uL RBC (4.7-6.1) M/uL Hgb (14.0-18.0) g/dL Hct (42-52) % MCV (80-100) fL MCH (25-34) pg MCHC (32-36) g/dL RDW Std Deviation (36.4-46.3) fL RDW Coeff of Marva (11.5-14.5) % Plt Count (130-400) K/uL MPV (7.4-10.4) fL Neutrophils % (Manual) % Lymphocytes % (Manual) % Monocytes % (Manual) % Eosinophils % (Manual) % Neutrophils # (Manual) (1.4-6.5) K/uL Total Absolute Neuts (1.4-6.5) K/uL Lymphocytes # (Manual) (1.2-3.4) K/uL Total Abs Lymphocytes (1.2-3.4) K/uL Monocytes # (Manual) (0.11-0.59) K/uL Eosinophils # (Manual) (0-0.5) K/uL Large Granular Lymphs % # Lrg Granular Lymphs K/uL Blood Smear Review Polychromasia PT (9.0-12.0) Seconds INR (0.9-1.1) APTT (21.0-31.0) Seconds PTT Ratio Sodium (136-145) mmol/L Potassium (3.5-5.1) mmol/L Chloride (98-107) mmol/L Carbon Dioxide (21-32) mmol/L Anion Gap (3-11) BUN (7-18) mg/dl Creatinine (0.6-1.4) mg/dl Est Cr Clr Drug Dosing Est GFR ( Amer) Est GFR (Non-Af Amer) BUN/Creatinine Ratio (10-20) Glucose (70-99) mg/dl POC Glucose 134 H (70-99) Calcium (8.5-10.1) mg/dl Magnesium (1.8-2.4) mg/dl Total Bilirubin (0.2-1) mg/dl AST (15-37) U/L ALT (12-78) U/L Alkaline Phosphatase (45-117) U/L Troponin I (0-0.045) ng/ml Total Protein (6.4-8.2) gm/dl Albumin (3.4-5.0) gm/dl Globulin (2.5-4.0) gm/dl Albumin/Globulin Ratio (0.9-2) Hepatitis C Ab Screen Neg (Neg) Blood Type A Negative Antibody Screen POSITIVE A Antibody Identification Anti-D Antibody ID Comment Imaging Data Attestation: I personally reviewed and interpreted this imaging study as follows: My Impression: CHEST X-RAY 1 VIEW: Right mainstem intubation. Spinal hardware makes it difficult to interpret. Pulmonary edema present. REPEAT CHEST X-RAY 1 VIEW: ET tube pulled back 2 cm. In good position. Radiologist's Impression: Radiology results as stated below per my review and the radiologist's interpretation: CT HEAD: No priors No ICH, mass effect, evidence for acute large vessel infarct or other acute intracranial findings. Involutional and chronic-appearing ischemic changes/encephalomalacia. MRI more sensitive, if indicated. Radiologist: Robert Stovall M.D. Study ready at 02:27 and initial results transmitted at 02:36 CTAHEAD: CTANECK: Comparison recent noncontrast CT head. No other priors. There is some artifact on this exam. There are findings compatible with endarterectomy. There is occlusion of the right ICA which begins at the proximal ICA and con tinues superiorly into the intracranial ICA. There is some contrast in the ICA terminus, likely from the contralateral side. There may also be some trickle flow in the most proximal ICA near the bifurcation though ICA is essentially occluded throughout its course other than supraclinoid right ICA. No occlusion of the left ICA including the stented portion of the left ICA nor is there high-grade stenosis. No evidence for vertebral artery dissection. There is some atherosclerotic narrowing of the right innominate artery which appears moderate to high-grade proximal to the takeoff of the right vertebral artery which may predispose to subclavian steal though patient's symptoms are likely secondary to occluded right ICA. There is venous contamination which limits some of the peripheral branches of the intracranial arteries but other than the right ICA, no large vessel occlusion is seen intrac ranially. Pleural effusions. Suspected atelectasis. Endotracheal tube. Secretions or other debris within the trachea. Postop changes spine and other incidentals. Radiologist: Robert Stovall M.D. Study ready at 04:29 and initial results transmitted at 04:43 ECG Data Attestation: I personally reviewed and interpreted this ECG as follows: Indication: + other (pre-hospital STEMI) Rate (beats per minute): 108 Rhythm: + sinus tachycardia ECG ST segments: no ST elevation ECG Findings: + Other (STEMI changes resolved from pre-hospital ECG.); no PACs and no PVCs Blood Pressure Blood Pressure Findings: Elevated blood pressure Blood Pressure Disposition: further management by hospitalist LORI Mo The patient is a 73 year old male who presents to the Emergency Room with complaints of an episode of confusion that began just prior to arrival, per EMS. The patient then suffered a seizure and was unresponsive afterwards. CT scan of the brain was negative for any acute intracranial hemorrhage. The patient went on to have CTA of the brain and neck. 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 CTA of the brain was negative. The patient's blood pressure continued to drop and he was placed on a Levophed drip. Once the patient's blood pressure got to 150 systolic, the Levophed dosage was lowered but blood pressure would fall. Levophed was increased again. The initial thought was that the patient may have suffered an acute seizure secondary to hypotension. However, while here in the emergency department, his blood pressure was normal/slightly elevated and he had a grand mal seizure. The patient was loaded with IV Keppra. Once the patient was more stable, we did contact [place] tele-stroke and they evaluated the patient and recommended IV TPA. This was prepared and given. The patient had some small amount of bright red blood from the endotracheal tube but no bleeding from his surgical site in his right groin. Prehospital EKG was obtained which showed evidence of a STEMI. Upon presentation, a twelve-lead was performed here in the emergency department which showed no ST segment elevation. Patient's initial troponin was negative. The patient will require close follow-up from cardiology and possible echocardiogram. Impression & Plan CVA (cerebrovascular accident), Seizure, Hypotension, ST elevation (STEMI) myocardial infarction Discharge Plan Visit Data *Final* Discharge Date/Time: 02/06/19 06:14 Chief Complaint: Seizure Stated Complaint: SEIZURE ED Provider: Franci Crump Discharge Problem: CVA (cerebrovascular accident), Seizure, Hypotension, ST elevation (STEMI) myoc ardial infarction Patient Disposition: Admitted As Inpatient Discharge Instructions Interventions: ED Discharge Assessment Last Done: 02/06/19 06:14 Discharge Problem: CVA (cerebrovascular accident) Qualifiers: CVA mechanism: unspecified Qualified Code(s): I63.9 - Cerebral infarction, unspecified Hypotension Qualifiers: Hypotension type: unspecified hypotension type Qualified Code(s): I95.9 - Hypotension, unspecified ST elevation (STEMI) myocardial infarction Qualifiers: Involved coronary artery: unspecified coronary artery Qualified Code(s): I21.3 - ST elevation (STEMI) myocardial infarction of unspecified site The scribe's documentation has been prepared under my direction and personally reviewed by me in its entirety. I confirm that the note above accurately reflec ts all work, treatment, procedures, and medical decision making performed by me.
[2019-02-06] MEDS ORDERED: GADOBUTROL 65ML VIAL IV PRN (07:11)
--- NOTE | 2019-02-06 07:33 | Magnetic Resonance Report ---
MR brain wo/w con HISTORY: 73 years-old Male acute cva acute strokelike symptoms COMPARISON: MRA of the head, CT head and CTA head and neck studies of same day TECHNIQUE: Multiplanar multisequence MRI of the brain was obtained both with and without the use of 1 1.5 mL Gadavist FINDINGS: Sales Enablement Manager localizer images demonstrate no gross extracranial abnormality. Moderate sized area of ill-defi kristine slightly restricted diffusion within the left temporal occipital lobes measuring up to 5.2 cm wit h a few punctate areas of increased signal on the diffusion-weighted sequence to the left MCA territo ry of the left frontal and parietal lobes. Additionally, there is moderately increased T2/FLAIR signa l within these areas with mild associated cortical enhancement. No acute intracranial hemorrhage, mid line shift, or abnormal extra-axial collection. Encephalomalacia and gliosis from remote left frontal lobe infarction. Mild age-related involutional changes. Patchy white matter T2/FLAIR hyperintensitie s suggest background mild chronic microvascular ischemic disease. Ex vacuo ventriculomegaly of the le ft lateral ventricle. Bilateral mesial temporal lobes appear normal. Bilateral mastoid effusions. There is loss of the flow void involving the right ICA. Prior bilateral cataract appear. Mild mucosal thickening of the nasal turbinates and paranasal sinuses. The skull and soft tissues are unremarkable. IMPRESSION: 1. Ill-defined areas of minimally restricted diffusion involving the left MCA territory, notably the temporal occipital lobes and to a lesser extent within the frontal parietal lobes demonstrates modera tely increased T2/FLAIR signal and multifocal associated cortical enhancement suggestive of subacute infarctions. 2. Remote left MCA territorial infarct with encephalomalacia, gliosis and ex vacuo ventriculomegaly o f the left lateral ventricle. 3. Bilateral mastoid effusions with mild mucosal thickening of the paranasal sinuses. The above report was generated using voice recognition software. It may contain grammatical, syntax o r spelling errors. Electronically signed by: Bhargav Gold M.D. 02/06/2019 7:32 AM
--- NOTE | 2019-02-06 07:38 | Magnetic Resonance Report ---
MR angio neck wo/w con HISTORY: Mental status change. Stroke. cva TECHNIQUE: Multiaxial CT angiography of the neck was performed IV contrast: 8.4 cc All measurements were calculated based on NASCET criteria. Maximum intensity projection images were also obtained. A dose lowering technique was utilized adhering to the principles of ALARA. COMPARISON STUDY: CT 02/06/2019 FINDINGS: Severely compromised exam due to severe patient motion. Moderate stenosis proximal left sub clavian artery. Considerable plaque formation of the carotid systems bilaterally. Evidence for a recent left carotid endarterectomy. High-grade stenosis at the level of the endarterec gabriela operative site with high-grade stenotic change versus near occlusion of the distal left internal carotid artery. This is more prominent than seen on the CT study possibly secondary to artifact. Occlusion distal right internal carotid artery. Minimal collateral vascular flow. This is primarily in the supraclinoid aspect of the right carotid s ystem. This again presumably is secondary to collateral flow via the [place]. No major stenotic process of the vertebral basilar system. IMPRESSION: 1. Severely compromised exam due to postoperative artifact as well as considerable patient motion. 2. This examination does not add additional information compared to the patient's prior CT angiograph ic study. 3. MRI suggests occlusion right internal carotid artery with potential intracranial vascular collater al reconstitution at the supraclinoid aspect of the right internal carotid artery. 4. Operative changes consistent with a prior left carotid endarterectomy,. This study suggests comple te occlusion of the operative site as well as proximal to mid left internal carotid artery. This is a discordant finding compared to the prior CT study, possibly secondary to motion and operative artifa ct of the left carotid system. 5. The CT study is considered more accurate than this exam. The above report was generated using voice recognition software. It may contain grammatical, syntax or spelling errors. Electronically signed by: Jimy Dejesus M.D. 02/06/2019 7:37 AM
[2019-02-06] MEDS ORDERED: fentaNYL citrate 100 MCG/2 ML VIAL IV PRN (08:28)
[2019-02-06] MEDS: FAMOTIDINE 20 MG in SYRINGE 3 ML IV SCH ×2 (08:29→21:18)
[2019-02-06] MEDS: LEVOTHYROXINE SODIUM 12.5 MCG in SYRINGE 0 ML IV SCH (08:29)
[2019-02-06] MEDS: INSULIN ASPART 100 UNITS/ML 3 ML PEN SC SCH ×4 (08:29→23:57)
--- NOTE | 2019-02-06 08:35 | History and Physical Report ---
DATE OF ADMISSION: 02/06/2019 CHIEF COMPLAINT: CVA and seizures. HISTORY OF PRESENT ILLNESS: This is a 73-year-old male with past medical history significant for type 2 diabetes, history of CAD, hypertension, obesity, history of CVA, presents with seizures and CVA. The patient in September had episode of CVA with right-sided weakness. He was found to have occlusion of the left internal carotid artery and last Wednesday he was admitted to [facility] for stent placement. During that hospitalization he had some issues with hypotension and seems he was in ICU for couple of days.He was discharged last Wednesday. The patient then today in the night, he woke up and was speaking gibberish, not making sense. His called EMS. When EMS came in, he had a seizure episode. He was given Versed and brought in here and got intubated and stroke alert was called and he was having more weakness in the right side than usual. He had some residual weakness from previous stroke, but this seemed to be more so stroke alert was called and he was given TPA. CTA of the head and neck was done. Initially, there was question of whether the seizure is causing from hypotension, but in ER he hand another seizure episode when the systolic blood pressure was in 140-160 range. He was given another dose of Versed and on-call stroke alert doctor was called and advised for loading with Keppra 1000 mg and then 750 b.i.d. and CTA came back as 100% occlusion to the right RCA which is chronic and his symptoms seem to be from the left hemisphere. Arianne neurologist advised to keep his MAP greater than 100 and follow the post-TPA protocol and MRI scans. Initially, the family wanted to transfer him back to the [facility], but as per the ER physician, because of the bad weather it was not possible, so the patient is going to be admitted to the ICU and is going to get MRI scans now. Currently, he is on mechanical vent and is sedated with Versed. As per the since discharge he was doing okay. He was ambulating with support. No recent fever or chills. No complaint of any pain, he called and told one of the family members that he gets short of breath and has to take deep breaths. No nausea, no vomiting. He has some vision issues since his recent stroke and he is swallowing okay. No fevers, no complaints of pain. No diarrhea or constipation. ALLERGIES: No known drug allergies. PAST MEDICAL HISTORY: As mentioned. PAST SURGICAL HISTORY: Cardiac catheterization in 1998, but no stent was placed, history of right knee arthroscopy, cataract surgeries and recent left carotid stent placement. MEDICATIONS: The patient is on Tylenol 975 mg p.o. t.i.d. p.r.n., ascorbic acid 500 mg p.o. b.i.d., aspirin 325 mg p.o. daily, atorvastatin 40 mg p.o. at bedtime, Colace 100 mg p.o. daily, famotidine 20 mg p.o. b.i.d., ferrous sulfate 325 mg p.o. t.i.d., folic acid 1 mg p.o. daily, furosemide 40 mg p.o. q.a.m., glipizide 10 mg p.o. b.i.d., levothyroxine 25 mcg p.o. daily, metformin 1000 mg p.o. b.i.d., metoprolol succinate 12.5 mg p.o. daily, Senokot 8.6 mg p.o. daily p.r.n., Tegretol 90 mg p.o. b.i.d., tramadol 50 mg p.o. q. 4 hours p.r.n. FAMILY HISTORY: Significant for father had MA, stroke. Mother had lung disorder. Sister has gastrointestinal disorder. SOCIAL HISTORY: , quit smoking in 1978. No alcohol use, no drug use as per records. REVIEW OF SYSTEMS: As per HPI, could not obtainable as patient is currently intubated. PHYSICAL EXAMINATION: GENERAL: The patient is status post intubation. VITAL SIGNS: Temperature 37.2, pulse 107, respiratory rate 25, blood pressure 107/61, oxygen on mechanical vent 60% FIO2. HEENT: No pallor. Pupils sluggish to react. NECK: No JVD, no neck masses. CARDIOVASCULAR: S1, S2 heard. Tachycardia. No murmurs. RESPIRATORY SYSTEM: Normal AP diameter. No accessory muscle use. No wheezing, no crackles. ABDOMEN: Soft, bowel sounds present. No distention. CENTRAL NERVOUS SYSTEM: Status post intubation and sedation. EXTREMITIES: No edema, no erythema. LABORATORY DATA: WBC 8.6, hemoglobin 11.5, hematocrit 34.8, platelets 322. PT 10.3, INR 1, APTT 26.2. Sodium 139, potassium 4, chloride 102, bicarbonate 21, BUN 16, creatinine 1.4, serum glucose 159, calcium 9, magnesium 1.6, total bilirubin 0.3, AST 11, ALT 17, alkaline phosphatase 104. Troponin I less than 0.015. IMAGING: Stat CTA of the head shows there is occlusion of right ICA, which begin through the proximal ICA and continued superiorly into the intracranial ICA. There is some contrast in the ICA terminal likely from the contralateral side. There may also be some trickle flow in the most proximal ICA near the bifurcation though as he is essentially occluded throughout his course other than supraclinoid right ICA. No occlusion of the left ICA including the stented portion of the left ICA nor is there any high-grade stenosis. No evidence of vertebral artery dissection. EKG: Shows sinus tachycardia, rate of 108, No acute st changes seen. ASSESSMENT AND PLAN: This is a 73-year-old male who presents with stroke and seizures. 1. Acute cerebrovascular accident. Recently had a stroke in September with some right-sided weakness. Today woke up in the middle of the night, was speaking gibberish and increased right-sided weakness and when EMS came he also had a seizure, so he was given Versed and brought in here. He had a CAT scan of the head and he had TPA and CTA of the head and neck was done which were unremarkable except for chronic finding of occlusion of the right RCA. Stent on the left ICA is patent. The patient is intubated. Post-TPA protocol and post stroke management in the ICU. Vent management as per Critical Care, to keep blood pressure MAP greater than 100. Will Follow the MRI brain and MRA of the head and neck, neuro checks as per protocol. Speech consult when patient is more stable and PT/OT when patient is more stable. Closely monitor in the ICU. Restart aspirin and Brilinta as soon as possible. Continue his Lipitor home dose. Follow lipid profile. 2. Seizures, most likely from the above, received a couple of doses of 5 mg Versed .Starting on Keppra iv 1000 mg loading dose and then 750 b.i.d.as per stroke Neurology recommendations. Follow EEG and monitor in the ICU.Neurology consult. 3. History of coronary artery disease, as per family no stent. Cardiac catheterization was done in 1998. We will follow the echocardiogram. Continue statin. Holding aspirin and Brilinta for post-TPA protocol. Restart aspirin as possible and we are holding Toprol-XL for control of permissive hypertension. We will monitor. 4. Diabetes. Holding home glipizide and metformin. We will place him on insulin sliding scale. Follow hemoglobin A1c levels. 5. Questionable congestive heart failure. The patient is on Lasix 40. Currently, getting IV fluids, holding Lasix. We will monitor for volume overload. 6. Hypothyroidism. IV Synthroid. 7. Gastroesophageal reflux disease. We will give IV Pepcid. 8. Deep venous thrombosis prophylaxis, sequential compression devices for now. 9. Disposition: Closely monitor in the ICU. Level 1 full code. MTDD
[2019-02-06] MEDS ORDERED: PERFLUTREN LIPID MICROSPHERE (DEFINITY) IV ONE (08:45)
[2019-02-06] MEDS ORDERED: FAMOTIDINE 10 MG/ML 2ML VIAL IV SCH (09:00)
[2019-02-06 09:37] LABS: Appearance Urine Clear (Clear); Bilirubin Urine Negative (Negative); Blood Urine Negative (Negative); Color Urine Yellow; Glucose Urine UA Negative (Negative); Ketones Urine Trace (Negative); Leukocyte Esterase Urine Trace (Negative); Nitrite Urine Negative (Negative); Protein Urine 1+ (Negative); Urobilinogen Urine Negative (Negative); pH Urine 6.5 (4.5-7.5)
[2019-02-06 09:51] LABS: Epithelial Cell Urine 0-5 /lpf (0-5)
[2019-02-06 09:52] LABS: Bacteria Urine 1+ (Negative); RBC Urine 0-4 /hpf (0-4); WBC Urine >30 /hpf (0-5)
[2019-02-06] MEDS: MAGNESIUM SULFATE / D5W 1 GM/100 ML BAG IV SCH ×2 (10:51→12:02)
[2019-02-06] MEDS: NORMOSOL-R 1,000 ML IV SCH ×2 (10:51→19:25)
[2019-02-06] MEDS: FOLIC ACID 1 MG TAB PO SCH (11:12)
[2019-02-06] MEDS: DOCUSATE SODIUM 100 MG CAP PO SCH (11:12)
--- NOTE | 2019-02-06 12:27 | Hospitalist Progress Note ---
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 -leading to rt sided weakness -was admitted in [facility] s/p recent left carotid endarterectomy , admitted with Sz like activity , hypotension , unresponsiveness, worsening of rt sided weakness "Stroke alert " was called pt was seen by Arianne Neurology was ordered tPA -given risk of acute CVA was intubated for airway protection MRI of brain shows no new CVA , subacute -possible due to past stroke pt is continued to monitor in ICU as per tPA protocol /Keep MAP 100 to allow cerebral perfusion /prevent cerebral ischemia -which can precipitatie stroke appreciate input from Neurology recommends to start on dual antiplatelets Aspirin 81 mg and Plavix 75 mg once bleeding risk is low after tPA administration high intensity statin with goal LDL < 70 (2) CAD (coronary artery disease): no evidence of ACS ECHO ordered (3) Carotid artery occlusion: CODE STATUS : full code DISPOSITION ; cont to monitor in ICU -per post tPA protocol Subjective pt seen in ICU room 109 at approx 12 pm remain intubated ,opens eyes to voice able to follow command on pressors for persistent hypotension on CPAP trial on vent family members present at bedside Physical Exam Constitutional: intubated in vent Eyes: sclerae not anicteric ENMT: ET tube in place Respiratory: normal respiratory effort (on vent CPAP trial ); no respiratory distress Auscultation: no crackles, no rales and no wheezes Cardiovascular: RRR, no murmur, no edema Gastrointestinal (Abdomen): Inspection/Auscultation: abdomen not distended Percussion/Palpation: abdomen soft Neurologic: opens eyes to voice , intubated, off sedation moving extremities Results & Data Vital Signs (Past 12 Hours) Vital Signs Temp Pulse Pulse Resp BP BP Pulse Ox 02/06/19 12:00 94 H 164/80 H 97 11/18/19 11:30 92 H 175/81 H 98 02/06/19 11:05 96 H 165/82 H 100 02/06/19 10:53 96 H 20 165/82 H 100 02/06/19 10:25 94 H 171/82 H 100 02/06/19 10:24 94 H 165/82 H 100 02/06/19 10:00 90 26 H 168/83 H 100 02/06/19 09:30 86 156/74 H 100 02/06/19 09:00 92 H 22 145/75 H 100 02/06/19 08:53 93 H 20 141/78 H 02/06/19 08:23 94 H 20 134/74 02/06/19 07:53 37.1 C 94 H 18 156/86 H 02/06/19 07:39 103 H 27 H 98 02/06/19 07:30 109 H 98 02/06/19 07:26 105 H 152/85 H 100 02/06/19 07:04 105 H 20 98 02/06/19 06:23 106 H 20 134/76 98 02/06/19 05:53 104 H 20 151/86 H 99 02/06/19 05:34 103 H 132/72 93 02/06/19 05:32 105 H 100/63 94 02/06/19 05:30 105 H 104/59 L 93 02/06/19 05:28 106 H 85/57 L 93 02/06/19 05:26 105 H 94/59 L 94 02/06/19 05:24 103 H 103/59 L 95 02/06/19 05:22 105 H 130/71 95 02/06/19 05:20 106 H 144/80 H 95 02/06/19 05:18 103 H 159/89 H 96 02/06/19 05:16 104 H 158/88 H 96 02/06/19 05:15 103 H 152/84 H 96 02/06/19 05:14 106 H 95 02/06/19 05:12 107 H 125/76 95 02/06/19 05:10 109 H 107/61 94 02/06/19 05:08 109 H 94/58 L 94 02/06/19 05:06 110 H 95/63 L 94 02/06/19 05:04 111 H 111/60 94 11/18/19 05:02 113 H 78/67 L 95 11/18/19 05:00 113 H 109/61 94 11/18/19 04:58 113 H 116/62 95 11/18/19 04:56 112 H 108/58 L 95 /18/19 04:54 112 H 112/60 95 11/18/19 04:52 113 H 112/61 95 /18/19 04:50 113 H 113/62 95 /18/19 04:48 113 H 121/64 95 11/18/19 04:46 114 H 129/69 95 /18/19 04:44 115 H 138/74 96 /18/19 04:42 116 H 151/79 H 96 /18/19 04:41 117 H 162/88 H 97 /18/19 04:40 123 H 98 /18/19 04:38 141 H 92 /18/19 04:36 96 /18/19 04:34 107 H 147/77 H 96 /18/19 04:32 106 H 155/81 H 97 11/18/19 04:30 107 H 154/81 H 97 /18/19 04:28 106 H 180/95 H 98 11/18/19 04:26 107 H 172/95 H 98 11/18/19 04:24 109 H 168/89 H 99 11/18/19 04:23 113 H 160/84 H 100 11/18/19 04:22 112 H 100 11/18/19 04:01 159/75 H 11/18/19 04:00 91 H 97 11/18/19 03:58 89 153/76 H 99 11/18/19 03:56 89 153/72 H 100 11/18/19 03:54 88 151/69 H 100 11/18/19 03:52 87 149/76 H 100 11/18/19 03:50 89 156/74 H 100 11/18/19 03:48 88 150/72 H 100 11/18/19 03:46 89 153/82 H 100 11/18/19 03:44 91 H 154/77 H 100 11/18/19 03:42 91 H 161/86 H 100 11/18/19 03:40 92 H 147/69 H 100 /18/19 03:38 92 H 154/75 H 100 11/18/19 03:36 92 H 149/79 H 100 18/ 03:34 92 H 147/77 H 100 02/06/19 03:32 93 H 137/77 99 02/06/19 03:30 94 H 104/64 99 18 03:28 91 H 74/47 L 99 18 03:26 90 82/52 L 99 02/06/19 03:24 91 H 112/58 L 99 02/06/19 03:22 91 H 113/71 99 02/06/19 03:20 93 H 129/71 99 02/06/19 03:18 93 H 122/67 98 02/06/19 03:16 92 H 106/62 98 02/06/19 03:14 96 H 95/61 L 98 02/06/19 03:10 99 H 78/47 L 98 02/06/19 03:07 99 H 95/55 L 98 02/06/19 03:00 102 H 81/52 L 97 02/06/19 02:59 101 H 74/43 L 96 02/06/19 02:50 101 H 77/44 L 97 02/06/19 02:43 103 H 78/48 L 02/06/19 02:41 102 H 73/51 L 98 02/06/19 02:35 105 H 25 H 99 02/06/19 02:30 104 H 25 H 82/55 L 98 02/06/19 02:26 100 02/06/19 02:25 105 H 23 102/64 100 02/06/19 02:13 37.2 C 110 H 20 90/62 L 100 02/06/19 02:10 92/60 L 100 02/06/19 02:08 108 H 14 90/62 L 99
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
[2019-02-06] MEDS ORDERED: Nursing to Pharmacy Communication ONE (14:14)
--- NOTE | 2019-02-06 14:15 | Billing Data ---
Coding Level of Care Code Critical Care 1st 30-74 mins
[2019-02-06] MEDS ORDERED: NOREPINEPHRINE BIT INJ 8 MG in DEXTROSE 5% 500 ML IV STA (14:27)
[2019-02-06] MEDS ORDERED: MIDAZOLAM HCL 5 MG/ML 10 ML IV ONE (15:52)
--- NOTE | 2019-02-06 16:22 | Electroencephalogram ---
EEG Procedure Note Date of Service February 06, 2019 Start / End Times Start Time: 956 End Time: Referring Physician Rivera Walsh MD History Possible seizure Home Medication List Home Medications Medication Instructions Recorded Confirmed Type acetaminophen 975 mg PO TID PRN 02/06/19 02/06/19 History ascorbic acid (vitamin C) 500 mg PO BID 02/06/19 02/06/19 History aspirin 325 mg PO DAILY 02/06/19 02/06/19 History atorvastatin 40 mg PO HS 02/06/19 02/06/19 History docusate sodium 100 mg PO DAILY 02/06/19 02/06/19 History famotidine 20 mg PO BID 02/06/19 02/06/19 History ferrous sulfate 325 mg PO TIDM 02/06/19 02/06/19 History folic acid 1 mg PO DAILY 02/06/19 02/06/19 History furosemide 40 mg PO QAM 02/06/19 02/06/19 History glipizide 10 mg PO BIDM 02/06/19 02/06/19 History levothyroxine 25 mcg PO QAM 02/06/19 02/06/19 History metformin 1,000 mg PO BID 02/06/19 02/06/19 History metoprolol succinate 12.5 mg PO DAILY 02/06/19 02/06/19 History sennosides [senna] 8.6 mg PO DAILY PRN 02/06/19 02/06/19 History ticagrelor 90 mg PO BID 02/06/19 02/06/19 History tramadol 50 mg PO Q4 PRN 02/06/19 02/06/19 History Inpatient Medication List Docusate Sodium (Colace) 100 mg PO DAILY [facility] Stop: 03/08/19 08:59 Last Admin: 02/06/19 11:12 Dose: Not Given Documented by: [id number] Folic Acid (Folvite) 1 mg PO DAILY [facility] Stop: 03/08/19 08:59 Last Admin: 02/06/19 11:12 Dose: Not Given Documented by: [id number] Gadobutrol (Gadavist 65ml) 11.5 ml IV ONCE PRN PRN Reason: Interaction Checking Stop: 02/10/19 07:10 Last Admin: 02/06/19 07:11 Dose: 11.5 ml Documented by: [id number] Norepinephrine Bitartrate 8 mg (/ Dextrose) 508 mls @ 40.428 mls/hr IV .[id number] PRN; Protocol PRN Reason: TITRATE Stop: 03/08/19 02:49 Last Titration: 02/06/19 15:07 Dose: 0.09 mcg/kg/min, 40.4 mls/hr Documented by: [id number] Cosigned by: [id number] Titration: 02/06/19 14:45 Dose: 0.09 mcg/kg/min, 40.4 mls/hr Documented by: [id number] Titration: 02/06/19 13:57 Dose: 0.07 mcg/kg/min, 31.4 mls/hr Documented by: [id number] Titration: 02/06/19 11:11 Dose: 0.06 mcg/kg/min, 27 mls/hr Documented by: [id number] Titration: 02/06/19 10:12 Dose: 0.04 mcg/kg/min, 18 mls/hr Documented by: [id number] Titration: 02/06/19 09:16 Dose: 0.03 mcg/kg/min, 13.5 mls/hr Documented by: [id number] Titration: 02/06/19 08:45 Dose: 0.02 mcg/kg/min, 9 mls/hr Documented by: [id number] Titration: 02/06/19 08:01 Dose: 0.01 mcg/kg/min, 4.5 mls/hr Documented by: [id number] Titration: 02/06/19 07:45 Dose: 0.02 mcg/kg/min, 9 mls/hr Documented by: [id number] Titration: 02/06/19 04:28 Dose: 0 mcg/kg/min, 0 mls/hr Documented by: [id number] Titration: 02/06/19 03:12 Dose: 0.05 mcg/kg/min, 22.5 mls/hr Documented by: [id number] Admin: 02/06/19 03:01 Dose: 0.02 mcg/kg/min, 9 mls/hr Documented by: [id number] Cosigned by: [id number] Levothyroxine Sodium 12.5 mcg/ (Syringe) 0.625 mls @ 2 mls/min IV DAILY@0900 [facility] Stop: 03/08/19 08:59 Last Admin: 02/06/19 08:29 Dose: 2 mls/min Documented by: [id number] Famotidine 20 mg/ Syringe 5 mls @ 2.5 mls/min IV BID [facility] Stop: 03/08/19 08:59 Last Admin: 02/06/19 08:29 Dose: 2.5 mls/min Documented by: [id number] Parenteral Electrolytes (Normosol-R) 1,000 mls @ 100 mls/hr IV .Q10H [facility] Stop: 03/08/19 09:59 Last Admin: 02/06/19 10:51 Dose: 100 mls/hr Documented by: [id number] Discontinued Medications Alteplase, Recombinant (Activase For Stroke) 1 ea IV NOW STA; Protocol Stop: 02/06/19 03:43 Last Admin: 02/06/19 07:52 Dose: Not Given Documented by: [id number] Alteplase, Recombinant 9 mg/ (Syringe) 9 mls @ 9 mls/min IV ONCE ONE Stop: 02/06/19 03:54 Last Admin: 02/06/19 03:51 Dose: 9 mls/min Documented by: [id number] Cosigned by: [id number] Alteplase, Recombinant 81 mg/ (EMPTY BAG) 81 mls @ 81 mls/hr IV ONCE ONE Stop: 02/06/19 03:55 Last Infusion: 02/06/19 04:59 Dose: 0 mls/hr Documented by: [id number] Cosigned by: [id number] Admin: 02/06/19 03:53 Dose: 81 mls/hr Documented by: [id number] Cosigned by: [id number] Levetiracetam 1,000 mg/ (Dextrose) 110 mls @ 440 mls/hr IV NOW STA Stop: 02/06/19 05:04 Last Infusion: 02/06/19 11:12 Dose: 0 mls/hr Documented by: [id number] Admin: 02/06/19 05:06 Dose: 440 mls/hr Documented by: [id number] Sodium Chloride (Nss 1000ml) 1,000 mls @ 125 mls/hr IV .Q8H [facility] Stop: 03/08/19 06:41 Last Infusion: 02/06/19 10:52 Dose: 0 mls/hr Documented by: [id number] Admin: 02/06/19 08:02 Dose: 125 mls/hr Documented by: [id number] Magnesium Sulfate/Dextrose (Magnesium Sulfate / D5w) 1 gm in 100 mls @ 50 mls/hr IV Q2H [facility] Stop: 02/06/19 13:59 Last Infusion: 02/06/19 13:49 Dose: 0 mls/hr Documented by: [id number] Admin: 02/06/19 12:02 Dose: 50 mls/hr Documented by: [id number] Infusion: 02/06/19 12:02 Dose: 50 mls/hr Documented by: [id number] Infusion: 02/06/19 12:02 Dose: 50 mls/hr Documented by: [id number] Admin: 02/06/19 10:51 Dose: 50 mls/hr Documented by: [id number] Insulin Aspart (Novolog Flexpen) 0 units SC ACHS [facility] Stop: 03/08/19 07:29 Last Admin: 02/06/19 11:52 Dose: 2 units Documented by: [id number] Cosigned by: [id number] Admin: 02/06/19 08:29 Dose: 1 units Documented by: [id number] Cosigned by: [id number] Ioversol (Optiray 320 125ml) 125 ml IV ONCE PRN PRN Reason: Interaction Checking Stop: 02/10/19 03:50 Last Admin: 02/06/19 03:51 Dose: 119 ml Documented by: [id number] Midazolam HCl (Versed) Confirm Administered Dose 5 mg .ROUTE .STK-MED ONE Stop: 02/06/19 06:47 Last Admin: 02/06/19 08:04 Dose: 5 mg Documented by: [id number] Midazolam HCl (Versed) 2 mg IV Q2H PRN PRN Reason: Agitation Stop: 03/08/19 06:52 Last Admin: 02/06/19 06:50 Dose: 2 mg Documented by: [id number] Miscellaneous () Confirm Administered Dose 1 ea .ROUTE .STK-MED ONE Stop: 02/06/19 02:02 Last Admin: 02/06/19 02:29 Dose: 1 ea Documented by: [id number] Perflutren Lipid Microsphere (Definity) 2 ml IV ONCE ONE Stop: 02/06/19 08:46 Last Admin: 02/06/19 08:47 Dose: 2 ml Documented by: [id number] Description This is a 21 electrode EEG with a single channel dedicated to limited EKG. The electrodes were placed in accordance with the International 10-20 system. His EEG was done as a bedside recording is of good technical quality with few or no muscle movement artifacts. No activation procedures were utilized. Drowsiness and light sleep are not clearly obtained. Under these conditions there is evidence for a low amplitude background alpha rhythm of about 10 Hz maximum frequency and up to 15 to 20 V maximal amplitude seen best in the posterior head regions and bilaterally symmetrical. Polymorphic low voltage mid to upper frequency theta activity is present, is maximum in the central regions that is also symmetrical. Beta activity seen bifrontally No activation procedures were utilized No time is or clear evidence for potentially epileptogenic activity for polyspike and spike-wave burst, focal sharp waves and focal spikes Interpretation This is a normal EEG during apparent wakefulness performed on a patient who is currently intubated and on support but appears to be electroencephalographically at least a week Clinical Correlation This is a normal EEG revealing no evidence for focal or generalized encephalopathy no evidence for potentially epileptogenic activity. The absence of the latter however does not exclude the clinical diagnosis of a seizure disorder Rivera Walsh MD
--- NOTE | 2019-02-06 17:42 | XRay Report ---
XR chest 1V portable HISTORY: Evaluate jugular line placement. COMPARISON: Chest 02/06/2019. FINDINGS: Extensive thoracic spinal fusion hardware is again noted. Interval placement of a right jug ular central venous catheter which terminates in the expected location of the proximal SVC. No pneumo thorax. Small left pleural effusion persists. Perihilar interstitial vascular thickening has progress ed. This is suggestive of pulmonary edema. The endotracheal tube is been removed. Left basilar densit ies persist. This is nonspecific but suggestive of atelectasis. Left-sided rib fractures are again no berny. IMPRESSION: 1. Right jugular central venous catheter terminates at the proximal SVC. No pneumothorax. 2. Interval progression of the interstitial pulmonary edema. 3. Small left pleural effusion and left basilar densities persist. 4. Left-sided rib fractures are again noted. Electronically signed by: Segundo Brown M.D. 02/06/2019 5:40 PM
--- NOTE | 2019-02-06 17:42 | Procedure Note ---
Procedure Note Date of Service February 06, 2019 Central line placement note: Consent was obtained prior to procedure. Indication, risks, and benefits were explained at length. Procedure: Right IJ triple lumen central line placement Procedure was performed under strict sterile field in O.R. fashion. The right neck and chest were cleaned with chloroprep scrub and the patient was draped in sterile fashion. The internal jugular vein was identified using ultrasound. After anesthetizing the area with 3 mL of lidocaine, venous blood was withdrawn after accessing the vein under ultrasound guidance. Tubing was attached and no pulsatile flow was noted. The syringe was removed and a guide wire was advanced into the introducer needle. The dilator was advanced after being exchanged for the introducer needle. After appropriate dilation was obtained, the dilator was removed and the central catheter was placed over the guide wire using Seldinger technique. The wire was removed intact and the catheter was sutured at 15 cm. A surgical dressing was placed over the catheter with a biofilm shield in place. At the time of the procedure each port was aspirated and then flushed properly. Patient tolerated the procedure well with no complications. Post procedure x-ray was completed, placement was appropriate and no pneumothorax was noted. Critical Care Medicine Point of Care Bedside Ultrasound Procedure: Procedural Ultrasound Procedure Date: February 06, 2019 Indication: Placement of right IJ central line Attending: Cayla Jon DO Resident/Physician Automatic Oven Operator: Asha Engle MD, PGY3 Organs Examined: Right neck internal jugular vein Objects visualized: Right lateral neck soft tissue. If for central venous access Artery AND Vein visualized: No, only vein visualized. Compressible Vein: Yes. Guidewire or Short Catheter seen in vein prior to dilation: Yes. Line confirmed in Vein with ultrasound: Yes. Lung Sliding on side of attempt (if applicable): N/a. If no lung sliding or not obtained has CXR been ordered: Yes. Impression: Successful placement of right IJ TLC. Plan: Use of line. Images obtained are saved for permanent record Supervising Physician Co-Signing Physician Notes I was present and assisted with the entire procedure. Coding
[2019-02-06] MEDS: levETIRAcetam 750 MG in DEXTROSE 5% 100 ML IV SCH (19:25)
[2019-02-06] MEDS: ATORVASTATIN 40 MG TAB PO SCH (21:06)
[2019-02-07] MEDS ORDERED: LIDOCAINE/EPINEPHRINE 1% 20 ML VIAL INFIL ONE (00:04)
[2019-02-07] MEDS: levETIRAcetam 750 MG in DEXTROSE 5% 100 ML IV SCH (05:16)
[2019-02-07] MEDS: NORMOSOL-R 1,000 ML IV SCH (05:16)
[2019-02-07 05:30] LABS: BUN Creatinine Ratio 11.9 (10-20); Calcium 8.7 mg/dl (8.5-10.1); Creatinine Clr Calc Pharmacy 102.4 ml/min; Est GFR (African American) 99.7; Phosphorus 3.2 mg/dl (2.5-4.9); Potassium 3.8 mmol/L (3.5-5.1)
[2019-02-07] MEDS: INSULIN ASPART 100 UNITS/ML 3 ML PEN SC SCH ×4 (06:11→20:45)
[2019-02-07 06:14] LABS: Basophils # (auto) 0.03 K/uL (0-0.2); Basophils % (auto) 0.4 %; Eosinophils # (auto) 0.23 K/uL (0-0.5); Eosinophils % (auto) 3.2 %; Hematocrit (blood only) 30.1 % (42-52); Hemoglobin 9.8 g/dL (14.0-18.0); Immature Granulocytes # (auto) 0.01 K/uL (0.00-0.02); Immature Granulocytes % (auto) 0.1 %; Lymphocytes # (auto) 2.33 K/uL (1.2-3.4); Lymphocytes % (auto) 32.2 %; Mean Corpuscular Hemoglobin 27.9 pg (25-34); Mean Corpuscular Volume 85.8 fL (80-100); Mean Platelet Volume 8.9 fL (7.4-10.4); Monocytes # (auto) 0.62 K/uL (0.11-0.59); Monocytes % (auto) 8.6 %; Neutrophils # (auto) 4.01 K/uL (1.4-6.5); Neutrophils % (auto) 55.5 %; Platelet Count 293 K/uL (130-400); RDW Coefficient of Variation 14.8 % (11.5-14.5); RDW Standard Deviation 46.2 fL (36.4-46.3); Red Blood Count 3.51 M/uL (4.7-6.1); White Blood Count 7.23 K/uL (4.8-10.8)
[2019-02-07 06:16] LABS: Mean Corpuscular Hgb Conc 32.6 g/dL (32-36)
[2019-02-07 06:44] LABS: Estimated Average Glucose 146 mg/dl; Hemoglobin A1C 6.7 % (4.5-5.6)
--- NOTE | 2019-02-07 06:57 | XRay Report ---
XR chest 1V portable HISTORY: 73 years-old Male f/u follow-up study in a patient with shortness of breath. COMPARISON: Chest radiograph 02/06/2019 TECHNIQUE: Portable AP view of the chest FINDINGS: Cardiac silhouette is enlarged, unchanged. Pulmonary vascular congestion with interstitial coarsening and asymmetric right perihilar opacity redemonstrated. Slightly improved aeration of the lungs. Trac e pleural effusions with persistent left lung base opacities. No pneumothorax. Unchanged positioning of the right IJ central venous catheter. Degenerative changes of the shoulders and spine. Extensive f usion hardware of the spine. Multiple acute left-sided rib fractures redemonstrated. IMPRESSION: 1. Cardiomegaly with persistent pulmonary edema, stable to slightly improved from comparison. 2. Trace pleural effusions with persistent left lung base opacities. 3. Multiple left-sided rib fractures redemonstrated. The above report was generated using voice recognition software. It may contain grammatical, syntax o r spelling errors. Electronically signed by: Bhargav Gold M.D. 02/07/2019 6:55 AM
[2019-02-07] MEDS: FAMOTIDINE 20 MG in SYRINGE 3 ML IV SCH (09:26)
[2019-02-07] MEDS: LEVOTHYROXINE SODIUM 12.5 MCG in SYRINGE 0 ML IV SCH (09:26)
[2019-02-07] MEDS: DOCUSATE SODIUM 100 MG CAP PO SCH (09:35)
[2019-02-07] MEDS: FOLIC ACID 1 MG TAB PO SCH (09:35)
[2019-02-07] MEDS ORDERED: ASPIRIN 81 MG ECTAB PO ONE (11:00)
--- NOTE | 2019-02-07 11:15 | Billing Data ---
Coding Level of Care Code 28592 [place] Initial H&P Addendum (Blank) Addendum February 06, 2019 11:13 Coding should be for CVL greater than 5 years right sided procedure with GC modifier as well as professional service code for ultrasound for vascular access right side GC modifier, this code is for date of service on February 06, 2019, the level of care code is incorrect and a placeholder
--- NOTE | 2019-02-07 11:15 | Billing Data ---
Coding Level of Care Code 94250 Subseq Hosp Care Lvl 3
[2019-02-07] MEDS: cephALEXin 500 MG CAP PO SCH ×2 (11:42→20:45)
[2019-02-07] MEDS: TICAGRELOR 90 MG TAB PO SCH ×2 (11:42→20:45)
[2019-02-07] MEDS: FUROSEMIDE 40 MG TAB PO SCH (11:43)
--- NOTE | 2019-02-07 11:56 | Critical Care Progress Note ---
Date of Service February 07, 2019 Assessment & Plan (1) Cerebral hypoperfusion: 73-year-old male was admitted on February 06, 2019 for acute neuro deficits, question of acute CVA, and seizure. 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 Presented here with acute right-sided weakness and seizure (second was not hypotensive range). Received tPA. See CTA and MRA reports with significant areas of occlusion. Suspect he had an acute hypoperfusion event and not necessarily an acute CVA. His family cannot tell if he is back to his baseline vs not yet recovered from his September 2018 event. Unclear if current deficits are acute vs worsening of prior injury. - Currently off of vasopressors. No available data to guide present goals for MAP. If remains neuro-stable, recommend avoid pressors. Will d/c central line. Recommend tracking more MMSE-type data than just NIH stroke scale data. - Repeat MRI brain ordered this morning. Convert keppra to PO. Will check an ammonia level. - By report (from OSH) patient is a non-responder to Plavix. Therefore recommend ASA 81 and ticagrelor. - Will list ultram as an allergy (seizure). - Passed bedside speech eval. Formal speech consult pending. Pulm: Acute hypoxic respiratory failure in postictal state. Intubated s/p repeat seizure, extubated on 18Nov. pCXR noted pulmonary edema and left-sided rib fractures. CVS: Prior reports of near-syncope with movement. Most recently reported issues with hypotension s/p OSH endarterectomy and again on admit here. Unclear cause, ? s/p carotid manipulation. 18Nov TTE noted EF 30-35%, severe focal wall motion abnormalities (see full report). - PMH HTN, CHF, and CAD. Will restart home atorvastatin 40, Lasix 40. Holding home metoprolol. - Need to watch for new-onset paroxysmal afib. ID: Borderline febrile. WBC 7. Admit UCx sent grew G(-) bacilli. Will cover with Keflex x 5 days, d/c tapia, and await UCx CFU data. Endo: PMH DM2, held home glipizide and metformin. BSGs per unit policy. ISS as well. ? PMH hypothyroid, switching back to home PO levothyroxine. Renal/Lytes: No known recent issues. Admit UA > 30 WBCs. See ID above. - Admit Cr 1.4, no comparison available. On normosol. Now resolved at Cr 0.9. - Hypomagnesemia: Admit Mg 1.6, now resolved. GI: Heart healthy. PMH GERD, switching back to home famotidine. Heme: Admit Hb 11.5, down to 9.8. Some oozing from central line site. Monitoring s/p tPA. DVT prophy: Start heparin q8h. Skin/MSK: Prior thoracic fusion hardware seen on pCXR. Lines: PIV x 2. Tapia catheter (planned d/c). Code status: Full code. PT/OT: See notes. Disposition: Stable for downgrade to telemetry. (2) Received intravenous tissue plasminogen activator (tPA) in emergency department: (3) Seizure: (4) Acute respiratory failure with hypoxia: (5) Pulmonary edema: (6) Hypertension: (7) Hypotension: (8) HLD (hyperlipidemia): (9) CAD (coronary artery disease): (10) Carotid artery occlusion: (11) Bacteriuria: (12) Hypomagnesemia: (13) GERD (gastroesophageal reflux disease): (14) Anemia: Supervising Physician Co-Signing Physician Notes Dr. Engle was resident physician during care of patient. I separately evaluated patient for hassan portions of the history and the exam. I was present during the critical portion of medical decision making, and I discussed the case with the resident. I generally agree with the findings and plan. Patient was discussed on multidisciplinary rounds; patient continues to improve, passed swallow study and working with physical therapy. Patient stable for downgrade out of the ICU would advocate for telemetry to rule out paroxysmal atrial fibrillation which I again have not seen during this hospital stay and do not have records indicating such. Not initiating blood pressure control at this time will defer to neurology or primary team as he gets further away from this episode of hypotension. Subjective Spoke with patient this morning. He is awake, alert, but questionable orientation given that he answered most questions with I dont know including his name and location. When asked how he was doing, he said it was okay. He denies any pain. When asked if his right arm feels stronger, he says yes. Review of Systems Review of Systems: Per HPI as above. Physical Exam Physical Exam: General Appearance: Awake, alert, questionable overall orientation but is answering questions and responding to commands. Does not appear in immediate distress. CV: +S1S2 RRR, no murmur. Pulm: Clear to auscultation throughout. Abdomen: +BS, soft, non-tender, non-distended. Extremities: No pedal edema or calf tenderness. When asked to move his right arm he first moves his left, then attempts to move the right. Can do a weak right thumbs-up and lift at the elbow only. Right dramatic critic strength significantly weaker than left. Can lift the right leg partially off the bed. Moving left arm and leg much easier. Neuro: Awake, alert, questionable orientation. Lines: PIV, Tapia, right IJ central line. Results & Data Vital Signs (Past 12 Hours) Vital Signs Temp Pulse Pulse Resp BP BP Pulse Ox 02/07/19 10:10 85 23 142/69 H 100 02/07/19 10:01 102 H 32 H 146/72 H 95 02/07/19 09:00 80 24 126/63 94 02/07/19 08:00 84 146/69 H 100 02/07/19 06:00 37 C 89 20 165/79 H 99 02/07/19 05:00 37 C 87 20 195/84 H 98 02/07/19 04:00 87 206/89 H 89 L 02/07/19 03:50 85 190/81 H 94 02/07/19 03:40 87 166/89 H 95 02/07/19 03:31 86 96 02/07/19 03:30 87 175/82 H 95 02/07/19 03:20 85 178/79 H 94 02/07/19 03:01 86 92 02/07/19 03:00 37 C 84 18 165/73 H 93 02/07/19 02:50 86 147/72 H 93 02/07/19 02:40 90 140/69 95 02/07/19 02:31 88 97 02/07/19 02:30 88 153/76 H 97 02/07/19 02:20 92 H 150/69 H 98 02/07/19 02:10 89 168/74 H 98 02/07/19 02:01 90 98 02/07/19 02:00 37.0 C 86 18 187/76 H 96 02/07/19 01:50 87 169/75 H 98 02/07/19 01:45 88 98 02/07/19 01:30 82 192/79 H 97 02/07/19 01:21 88 185/85 H 98 02/07/19 01:10 97 H 146/63 H 98 02/07/19 01:01 87 99 02/07/19 01:00 37 C 87 18 159/72 H 99 02/07/19 00:50 87 161/72 H 99 02/07/19 00:40 89 165/72 H 99 02/07/19 00:31 89 100 02/07/19 00:30 87 161/76 H 100 02/07/19 00:20 87 158/75 H 99 02/07/19 00:10 88 156/70 H 99 02/07/19 00:05 90 96 02/07/19 00:00 37 C 89 22 159/77 H 98 Laboratory Results 02/07/19 02/07/19 02/07/19 Range/Units 11:36 10:48 06:02 WBC RBC Hgb Hct MCV MCH MCHC RDW Std Deviation RDW Coeff of Marva Plt Count MPV Immature Gran % (Auto) Neut % (Auto) Lymph % (Auto) Nuckolls % (Auto) Eos % (Auto) Baso % (Auto) Immature Gran # (Auto) Neut # (Auto) Lymph # (Auto) Nuckolls # (Auto) Eos # (Auto) Baso # (Auto) Absolute Nucleated RBC Nucleated RBC % (auto) Neutrophils % (Manual) Band Neutrophils % Lymphocytes % (Manual) Prolymphocyte % Reactive Lymphs % (Man) Monocytes % (Manual) Eosinophils % (Manual) Basophils % (Manual) Metamyelocytes % (Man) Myelocytes % (Man) Promyelocytes % (Man) Blast Cells % (Manual) Plasma Cell % (Manual) Other Cells % Nucleated RBC % Neutrophils # (Manual) Band Neutrophils # Total Absolute Neuts Lymphocytes # (Manual) Prolymphocyte # Reactive Lymphs # Total Abs Lymphocytes Monocytes # (Manual) Eosinophils # (Manual) Basophils # (Manual) Metamyelocytes # (Man) Myelocytes # (Manual) Promyelocytes # (Man) Blast Cells # (Man) Plasma Cell # (Manual) Other Cells # Nucleated RBCs # (Man) Hypersegmented Neuts Hyposegmented Neuts Hypogranular Neuts Large Granular Lymphs # Lrg Granular Lymphs Hairy Cells Smudge Cells Toxic Granulation Toxic Vacuolation Dohle Bodies Heidy Rods Platelet Estimate Hypogranular Platelets Clumped Platelets Giant Platelets Platelet Satelliting RBC Morphology Polychromasia Hypochromasia Poikilocytosis Basophilic Stippling Anisocytosis Microcytosis Macrocytosis Spherocytes Pappenheimer Bodies Sickle Cells Target Cells Tear Drop Cells Ovalocytes Stomatocytes Campos-Van [place]ren Bodies Echinocytes Acanthocytes (Spur) Rouleaux RBC Agglutinates Schistocytes RBC Morph Comment Sezary Cell Sodium (136-145) mmol/L Potassium (3.5-5.1) mmol/L Chloride (98-107) mmol/L Carbon Dioxide (21-32) mmol/L Anion Gap (3-11) BUN (7-18) mg/dl Creatinine (0.6-1.4) mg/dl Est Cr Clr Drug Dosing ml/min Est GFR ( Amer) Est GFR (Non-Af Amer) BUN/Creatinine Ratio (10-20) Glucose (70-99) mg/dl POC Glucose 138 H (70-99) POC Glucose (other) (70-99) mg/dl Estimat Average Glucose 146 Hemoglobin A1c 6.7 H Calcium (8.5-10.1) mg/dl Phosphorus (2.5-4.9) mg/dl Magnesium (1.8-2.4) mg/dl Ammonia 18.0 (11-32) umol/L Triglycerides (0-150) mg/dl Cholesterol (0-200) mg/dl LDL Cholesterol, Calc mg/dl VLDL Cholesterol, Calc mg/dl HDL Cholesterol mg/dl Cholesterol/HDL Ratio Hepatitis C Ab Screen (Neg) Antibody Screen Antibody Identification Antibody ID Comment 02/07/19 02/07/19 02/07/19 Range/Units 06:02 04:29 04:29 WBC 7.23 Cancelled RBC 3.51 L Cancelled Hgb 9.8 L Cancelled Hct 30.1 L Cancelled MCV 85.8 Cancelled MCH 27.9 Cancelled MCHC 32.6 Cancelled RDW Std Deviation 46.2 Cancelled RDW Coeff of Marva 14.8 H Cancelled Plt Count 293 Cancelled MPV 8.9 Cancelled Immature Gran % (Auto) 0.1 Cancelled Neut % (Auto) 55.5 Cancelled Lymph % (Auto) 32.2 Cancelled Nuckolls % (Auto) 8.6 Cancelled Eos % (Auto) 3.2 Cancelled Baso % (Auto) 0.4 Cancelled Immature Gran # (Auto) 0.01 Cancelled Neut # (Auto) 4.01 Cancelled Lymph # (Auto) 2.33 Cancelled Nuckolls # (Auto) 0.62 H Cancelled Eos # (Auto) 0.23 Cancelled Baso # (Auto) 0.03 Cancelled Absolute Nucleated RBC Cancelled Nucleated RBC % (auto) Cancelled Neutrophils % (Manual) Cancelled Band Neutrophils % Cancelled Lymphocytes % (Manual) Cancelled Prolymphocyte % Cancelled Reactive Lymphs % (Man) Cancelled Monocytes % (Manual) Cancelled Eosinophils % (Manual) Cancelled Basophils % (Manual) Cancelled Metamyelocytes % (Man) Cancelled Myelocytes % (Man) Cancelled Promyelocytes % (Man) Cancelled Blast Cells % (Manual) Cancelled Plasma Cell % (Manual) Cancelled Other Cells % Cancelled Nucleated RBC % Cancelled Neutrophils # (Manual) Cancelled Band Neutrophils # Cancelled Total Absolute Neuts Cancelled Lymphocytes # (Manual) Cancelled Prolymphocyte # Cancelled Reactive Lymphs # Cancelled Total Abs Lymphocytes Cancelled Monocytes # (Manual) Cancelled Eosinophils # (Manual) Cancelled Basophils # (Manual) Cancelled Metamyelocytes # (Man) Cancelled Myelocytes # (Manual) Cancelled Promyelocytes # (Man) Cancelled Blast Cells # (Man) Cancelled Plasma Cell # (Manual) Cancelled Other Cells # Cancelled Nucleated RBCs # (Man) Cancelled Hypersegmented Neuts Cancelled Hyposegmented Neuts Cancelled Hypogranular Neuts Cancelled Large Granular Lymphs Cancelled # Lrg Granular Lymphs Cancelled Hairy Cells Cancelled Smudge Cells Cancelled Toxic Granulation Cancelled Toxic Vacuolation Cancelled Dohle Bodies Cancelled Heidy Rods Cancelled Platelet Estimate Cancelled Hypogranular Platelets Cancelled Clumped Platelets Cancelled Giant Platelets Cancelled Platelet Satelliting Cancelled RBC Morphology Cancelled Polychromasia Cancelled Hypochromasia Cancelled Poikilocytosis Cancelled Basophilic Stippling Cancelled Anisocytosis Cancelled Microcytosis Cancelled Macrocytosis Cancelled Spherocytes Cancelled Pappenheimer Bodies Cancelled Sickle Cells Cancelled Target Cells Cancelled Tear Drop Cells Cancelled Ovalocytes Cancelled Stomatocytes Cancelled Campos-Van [place] Bodies Cancelled Echinocytes Cancelled Acanthocytes (Spur) Cancelled Rouleaux Cancelled RBC Agglutinates Cancelled Schistocytes Cancelled RBC Morph Comment Cancelled Sezary Cell Cancelled Sodium 139 (136-145) mmol/L Potassium 3.8 (3.5-5.1) mmol/L Chloride 105 (98-107) mmol/L Carbon Dioxide 28 (21-32) mmol/L Anion Gap 6.0 (3-11) BUN 11 (7-18) mg/dl Creatinine 0.89 D (0.6-1.4) mg/dl Est Cr Clr Drug Dosing 102.4 ml/min Est GFR ( Amer) 99.7 Est GFR (Non-Af Amer) 86.0 BUN/Creatinine Ratio 11.9 (10-20) Glucose 148 H (70-99) mg/dl POC Glucose (70-99) POC Glucose (other) (70-99) mg/dl Estimat Average Glucose Hemoglobin A1c Calcium 8.7 (8.5-10.1) mg/dl Phosphorus 3.2 (2.5-4.9) mg/dl Magnesium 2.0 (1.8-2.4) mg/dl Ammonia (11-32) umol/L Triglycerides 150 (0-150) mg/dl Cholesterol 93 (0-200) mg/dl LDL Cholesterol, Calc 37 mg/dl VLDL Cholesterol, Calc 30 mg/dl HDL Cholesterol 26 mg/dl Cholesterol/HDL Ratio 4 Hepatitis C Ab Screen (Neg) Antibody Screen Antibody Identification Antibody ID Comment 02/07/19 02/06/19 02/06/19 Range/Units 04:29 23:52 18:44 WBC RBC Hgb Hct MCV MCH MCHC RDW Std Deviation RDW Coeff of Marva Plt Count MPV Immature Gran % (Auto) Neut % (Auto) Lymph % (Auto) Nuckolls % (Auto) Eos % (Auto) Baso % (Auto) Immature Gran # (Auto) Neut # (Auto) Lymph # (Auto) Nuckolls # (Auto) Eos # (Auto) Baso # (Auto) Absolute Nucleated RBC Nucleated RBC % (auto) Neutrophils % (Manual) Band Neutrophils % Lymphocytes % (Manual) Prolymphocyte % Reactive Lymphs % (Man) Monocytes % (Manual) Eosinophils % (Manual) Basophils % (Manual) Metamyelocytes % (Man) Myelocytes % (Man) Promyelocytes % (Man) Blast Cells % (Manual) Plasma Cell % (Manual) Other Cells % Nucleated RBC % Neutrophils # (Manual) Band Neutrophils # Total Absolute Neuts Lymphocytes # (Manual) Prolymphocyte # Reactive Lymphs # Total Abs Lymphocytes Monocytes # (Manual) Eosinophils # (Manual) Basophils # (Manual) Metamyelocytes # (Man) Myelocytes # (Manual) Promyelocytes # (Man) Blast Cells # (Man) Plasma Cell # (Manual) Other Cells # Nucleated RBCs # (Man) Hypersegmented Neuts Hyposegmented Neuts Hypogranular Neuts Large Granular Lymphs # Lrg Granular Lymphs Hairy Cells Smudge Cells Toxic Granulation Toxic Vacuolation Dohle Bodies Heidy Rods Platelet Estimate Hypogranular Platelets Clumped Platelets Giant Platelets Platelet Satelliting RBC Morphology Polychromasia Hypochromasia Poikilocytosis Basophilic Stippling Anisocytosis Microcytosis Macrocytosis Spherocytes Pappenheimer Bodies Sickle Cells Target Cells Tear Drop Cells Ovalocytes Stomatocytes Campos-Van [place]ren Bodies Echinocytes Acanthocytes (Spur) Rouleaux RBC Agglutinates Schistocytes RBC Morph Comment Sezary Cell Sodium (136-145) mmol/L Potassium (3.5-5.1) mmol/L Chloride (98-107) mmol/L Carbon Dioxide (21-32) mmol/L Anion Gap (3-11) BUN (7-18) mg/dl Creatinine (0.6-1.4) mg/dl Est Cr Clr Drug Dosing ml/min Est GFR ( Amer) Est GFR (Non-Af Amer) BUN/Creatinine Ratio (10-20) Glucose (70-99) mg/dl POC Glucose 139 H (70-99) POC Glucose (other) 144 H (70-99) mg/dl Estimat Average Glucose Cancelled Hemoglobin A1c Cancelled Calcium (8.5-10.1) mg/dl Phosphorus (2.5-4.9) mg/dl Magnesium (1.8-2.4) mg/dl Ammonia (11-32) umol/L Triglycerides (0-150) mg/dl Cholesterol (0-200) mg/dl LDL Cholesterol, Calc mg/dl VLDL Cholesterol, Calc mg/dl HDL Cholesterol mg/dl Cholesterol/HDL Ratio Hepatitis C Ab Screen (Neg) Antibody Screen Antibody Identification Antibody ID Comment 02/06/19 02/06/19 Range/Units 02:29 01:55 WBC RBC Hgb Hct MCV MCH MCHC RDW Std Deviation RDW Coeff of Marva Plt Count MPV Immature Gran % (Auto) Neut % (Auto) Lymph % (Auto) Nuckolls % (Auto) Eos % (Auto) Baso % (Auto) Immature Gran # (Auto) Neut # (Auto) Lymph # (Auto) Nuckolls # (Auto) Eos # (Auto) Baso # (Auto) Absolute Nucleated RBC Nucleated RBC % (auto) Neutrophils % (Manual) Band Neutrophils % Lymphocytes % (Manual) Prolymphocyte % Reactive Lymphs % (Man) Monocytes % (Manual) Eosinophils % (Manual) Basophils % (Manual) Metamyelocytes % (Man) Myelocytes % (Man) Promyelocytes % (Man) Blast Cells % (Manual) Plasma Cell % (Manual) Other Cells % Nucleated RBC % Neutrophils # (Manual) Band Neutrophils # Total Absolute Neuts Lymphocytes # (Manual) Prolymphocyte # Reactive Lymphs # Total Abs Lymphocytes Monocytes # (Manual) Eosinophils # (Manual) Basophils # (Manual) Metamyelocytes # (Man) Myelocytes # (Manual) Promyelocytes # (Man) Blast Cells # (Man) Plasma Cell # (Manual) Other Cells # Nucleated RBCs # (Man) Hypersegmented Neuts Hyposegmented Neuts Hypogranular Neuts Large Granular Lymphs # Lrg Granular Lymphs Hairy Cells Smudge Cells Toxic Granulation Toxic Vacuolation Dohle Bodies Heidy Rods Platelet Estimate Hypogranular Platelets Clumped Platelets Giant Platelets Platelet Satelliting RBC Morphology Polychromasia Hypochromasia Poikilocytosis Basophilic Stippling Anisocytosis Microcytosis Macrocytosis Spherocytes Pappenheimer Bodies Sickle Cells Target Cells Tear Drop Cells Ovalocytes Stomatocytes Campos-Van [place] Bodies Echinocytes Acanthocytes (Spur) Rouleaux RBC Agglutinates Schistocytes RBC Morph Comment Sezary Cell Sodium (136-145) mmol/L Potassium (3.5-5.1) mmol/L Chloride (98-107) mmol/L Carbon Dioxide (21-32) mmol/L Anion Gap (3-11) BUN (7-18) mg/dl Creatinine (0.6-1.4) mg/dl Est Cr Clr Drug Dosing ml/min Est GFR ( Amer) Est GFR (Non-Af Amer) BUN/Creatinine Ratio (10-20) Glucose (70-99) mg/dl POC Glucose (70-99) POC Glucose (other) (70-99) mg/dl Estimat Average Glucose Hemoglobin A1c Calcium (8.5-10.1) mg/dl Phosphorus (2.5-4.9) mg/dl Magnesium (1.8-2.4) mg/dl Ammonia (11-32) umol/L Triglycerides (0-150) mg/dl Cholesterol (0-200) mg/dl LDL Cholesterol, Calc mg/dl VLDL Cholesterol, Calc mg/dl HDL Cholesterol mg/dl Cholesterol/HDL Ratio Hepatitis C Ab Screen Neg (Neg) Antibody Screen POSITIVE A Antibody Identification Anti-D Antibody ID Comment Medications Administered Current Inpatient Medications Ascorbic Acid (Vitamin C) 500 mg PO BID DHAVAL Stop: 03/09/19 20:59 Aspirin (Ecotrin Ectab) 81 mg PO QAM DHAVAL Stop: 03/10/19 08:59 Atorvastatin Calcium (Lipitor) 40 mg PO HS DHAVAL Stop: 03/08/19 20:59 Last Admin: 02/06/19 21:06 Dose: Not Given Documented by: Cephalexin HCl (Keflex) 500 mg PO BID DHAVAL Stop: 02/11/19 21:01 Last Admin: 02/07/19 11:42 Dose: 500 mg Documented by: Dextrose (Dextrose 50%) 25 - 50 ml IV UD PRN; Protocol PRN Reason: Hypoglycemia Protocol Stop: 03/08/19 06:59 Docusate Sodium (Colace) 100 mg PO DAILY DHAVAL Stop: 03/08/19 08:59 Last Admin: 02/07/19 09:35 Dose: 100 mg Documented by: Famotidine (Pepcid) 20 mg PO BID DHAVAL Stop: 03/09/19 20:59 Ferrous Sulfate (Feosol) 325 mg PO BIDM DHAVAL Stop: 03/09/19 16:59 Folic Acid (Folvite) 1 mg PO DAILY DHAVAL Stop: 03/08/19 08:59 Last Admin: 02/07/19 09:35 Dose: 1 mg Documented by: Furosemide (Lasix) 40 mg PO QAM DHAVAL Stop: 03/09/19 10:59 Last Admin: 02/07/19 11:43 Dose: 40 mg Documented by: Gadobutrol (Gadavist 65ml) 11.5 ml IV ONCE PRN PRN Reason: Interaction Checking Stop: 02/10/19 07:10 Last Admin: 02/06/19 07:11 Dose: 11.5 ml Documented by: Glucagon (Glucagen) 1 mg IM UD PRN; Protocol PRN Reason: Hypoglycemia Protocol Stop: 03/08/19 06:59 Glucose (Glucose 40%) 15 - 30 gm PO UD PRN; Protocol PRN Reason: Hypoglycemia Protocol Stop: 03/08/19 06:59 Glucose (Dex4 Glucose) 4 - 8 tabs PO UD PRN; Protocol PRN Reason: Hypoglycemia Protocol Stop: 03/08/19 06:59 Heparin Sodium (Beef Lung) (Heparin Sod 10 Unit/Ml Flush) 5 ml FLUSH PRN PRN PRN Reason: Flush Stop: 03/09/19 01:18 Heparin Sodium (Porcine) (Heparin Sodium (Porcine)) 5,000 units SQ Q8 DHAVAL Stop: 03/08/19 21:59 Parenteral Electrolytes (Normosol-R) 1,000 mls @ 50 mls/hr IV .Q20H DHAVAL Stop: 03/08/19 09:59 Last Admin: 02/07/19 05:16 Dose: 100 mls/hr Documented by: Insulin Aspart (Novolog Flexpen) 0 units SC Q6 DHAVAL Stop: 03/08/19 17:59 Last Admin: 02/07/19 11:46 Dose: Not Given Documented by: Levetiracetam (Keppra) 750 mg PO Q12H DHAVAL Stop: 03/09/19 17:59 Levothyroxine Sodium (Synthroid) 25 mcg PO DAILYBB DHAVAL Stop: 03/10/19 06:29 Miscellaneous (Icu Protocol For Hyperglycemia) 1 ea N/A PRN PRN; Protocol PRN Reason: Hyperglycemia Protocol Stop: 02/08/19 06:41 Miscellaneous (Carbohydrates For Hypoglycemia) 15 - 30 gm PO UD PRN PRN Reason: Hypoglycemia Treatment Stop: 03/08/19 06:59 Miscellaneous Information (Pharmacist Discharge Med Rec Consult) 1 ea N/A UD PRN PRN Reason: Consult Stop: 03/08/19 06:43 Sennosides (Senokot) 8.6 mg PO DAILY PRN PRN Reason: Constipation Stop: 03/08/19 06:41 Ticagrelor (Brilinta) 90 mg PO BID DHAVAL Stop: 03/09/19 10:59 Last Admin: 02/07/19 11:42 Dose: 90 mg Documented by: Resident Activity Tracking Resident Involvement: Resident Care Provided Care Provided: Adult Hospital Medicine (ICU) (1) Hypotension Hypotension type: unspecified hypotension type Qualified Code(s): I95.9 - Hypotension, unspecified
[2019-02-07] MEDS ORDERED: GADOBUTROL 65ML VIAL IV PRN (13:57)
--- NOTE | 2019-02-07 14:16 | Magnetic Resonance Report ---
MR brain wo/w con CLINICAL HISTORY: 73 years-old Male presenting with subacute infarctions, follow-up. TECHNIQUE: Multisequence, multiplanar MR imaging of the brain was performed before and after the admi nistration of intravenous contrast. IV contrast: 11.5 mL of Gadavist. COMPARISON: 02/06/2019. FINDINGS: Localizer images: Unremarkable. Bone marrow signal intensity within the calvarium within normal limits. Normal midline sagittal structures. Proportional ventricular and sulcal prominence, likely age-relate d parenchymal volume loss. Mild sulcal effacement may be present in the left occipital region. No mid line shift. Mild diffusion hyperintensity in the left parieto-occipital region with associated T2/FLA IR hyperintensity. No intrinsic T1 hyperintensity to suggest hemorrhagic conversion. Postcontrast janna ging does not demonstrate abnormal enhancement in this distribution on the current exam. Old left fro ntoparietal infarct. Old lacunar infarcts in the periventricular white matter including the corpus ca llosum. Periventricular and subcortical white matter T2/FLAIR hyperintensity likely chronic small ves zoe ischemic change. No extra-axial fluid collection. Loss of the flow void within the right internal carotid artery to th e level of the paraclinoid segment as on the recent exam. Trace fluid in the mastoid air cells. Bilat eral [place] band lenses are absent. IMPRESSION: 1. Findings remain most suggestive of a subacute infarct in the left parieto-occipital region. No he morrhagic conversion. Resolution of prior faint enhancement in this region. 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 3. Extensive chronic small vessel ischemic change with old lacunar infarcts. 4. Redemonstration of occlusion or slow flow within the right ICA. Severe stenosis was evident on re cent CTA head, which likely favors the current appearance representing extremely slow flow. Electronically signed by: Joey Helms M.D. 02/07/2019 2:14 PM
[2019-02-07] MEDS: HEPARIN SOD 5,000 UNIT/0.5 ML VIAL SQ SCH ×2 (14:33→20:44)
--- NOTE | 2019-02-07 15:30 | Neurology Progress Note ---
Date of Service February 07, 2019 Assessment & Plan (1) Seizure: 1. EEG - normal 2. continue Keppra 750 mg BID at this time 3. can be reevaluated as outpatient 4. would not restart home Ultram (2) CAD (coronary artery disease): same as below (3) Carotid artery occlusion: 1. tPA given- no new stroke on MRI but subacute -possible after procedure- repeat MRI confirms subacute stroke 2. continue aspirin 325 mg daily and Brilinta 90 mg BID restart as tPa protocol allows- plavix was uneffective with his platlets on testing in [facility] 3. slowly reduce blood pressure but avoid hypotension 4. records from [facility] will be helpful for treatment plan 5. optimize HTN, HLD, DM- when appropriate with LDL <70 6. PT/OT speech for discharge needs. [facility]. [facility]. [facility] for any further management of CEA and stroke issues. Supervising Physician Co-Signing Physician Notes I have seen and discussed above patient with Dr Rivera Walsh, neurology I have seen and briefly examined this man today and discussed his case with both his family and Gayle Cordero PA-C and agree with the above notes and plans for further management. Known to us he was on a novel anticoagulant and full dose aspirin prior to the event and at this time he is post TPA, has had no evidence for bleeding fortunately and I do not think we need to add Plavix to his current regimen I suspect the CVA that we are seeing on MRI actually occurred about a week ago and about the time he had the endarterectomy and that the event in question was a seizure rather than a vascular event but a combination of the 2 could certainly not be excluded in the issue to some degree his academic as management would not change appreciably from our current recommendations which are to continue the Keppra 500 mg twice a day, continue to assess his right-sided weakness which is improving daily and perhaps consider a brief stay at [facility] [place] where he is already receiving outpatient therapy if his neurologic deficits did not improve to his old baseline prior to the current e vent I will check back with him tomorrow but for now he is going to be transferred out of the intensive care unit to the second floor and hopefully will continue to improve Rivera Walsh MD Cleo Moran) is a 73 year old male DM2, CAD, HTN, obesity, CVA, presents with seizures and CVA. September 2018 he had episode of CVA with right-sided weakness he had an occlusion of the left internal carotid artery and last Wednesday he was admitted to [facility] for stent placement. At that time he had some issues with hypotension and seems he was in ICU for couple of days.He was discharged last Wednesday. He woke up and was speaking gibberish, not making sense. When EMS was getting him on the stretcher he had a seizure episode which describes as a stiffening of body and total body jerking he was given versed and transported. He was intubated and stroke alert was called the weakness in the right side was more than baseline. He was given TPA. CTA of the head and neck was done of whether the seizure is causing from hypotension, but in ER he hand another seizure episode when the systolic blood pressure was in 140-160 range and given another dose of Versed and loaded with 1 g Keppra and started on 750 q 12 hours. [place] neurologist advised to keep his MAP greater than 100 and follow the post-TPA protocol and MRI scans. His family wanted to transfer him back to the [facility], but as per the ER physician, because of the bad weather it was not possible, so the patient is going to be admitted to the ICU and is going to get MRI scans now. He is extubated and back to his baseline. denies CP, SOB, abdominal pain, swallowing issues, N, V. Physical Exam Physical Exam: Gen: alert NAD lungs course breath sounds CV RRR right hand 4/5, biceps triceps 4/5, left 5/5, hip flex 4/5 right 5/5 left sensation intact to light and cool touch Results & Data Vital Signs (Past 12 Hours) Vital Signs Temp Pulse Resp BP Pulse Ox 02/07/19 14:09 92 H 23 147/70 H 02/07/19 13:00 85 25 H 139/64 02/07/19 12:36 88 24 02/07/19 12:00 84 23 119/61 95 02/07/19 11:30 83 29 H 96 02/07/19 11:00 85 28 H 112/59 L 02/07/19 10:30 86 26 H 99 02/07/19 10:10 85 23 142/69 H 100 02/07/19 10:01 102 H 32 H 146/72 H 95 02/07/19 09:30 82 23 96 02/07/19 09:00 80 24 126/63 94 02/07/19 08:30 84 24 98 02/07/19 08:00 84 146/69 H 100 02/07/19 07:59 84 125/72 100 02/07/19 07:38 83 140/70 100 02/07/19 07:30 83 100 02/07/19 07:00 83 99 02/07/19 06:30 87 100 02/07/19 06:00 37 C 84 20 165/79 H 88 L 02/07/19 05:57 85 165/79 H 80 L 02/07/19 05:30 83 91 02/07/19 05:00 37 C 85 20 195/84 H 98 02/07/19 04:30 86 98 02/07/19 04:11 86 195/84 H 99 02/07/19 04:01 92 H 90 02/07/19 04:00 87 206/89 H 89 L 02/07/19 03:50 85 190/81 H 94 02/07/19 03:40 87 166/89 H 95 02/07/19 03:31 86 96 02/07/19 03:30 87 175/82 H 95 02/07/19 03:20 85 178/79 H 94 Laboratory Results Abnormal lab results 02/06/19 02/06/19 02/07/19 Range/Units 18:44 23:52 04:29 RBC (4.7-6.1) M/uL Hgb (14.0-18.0) g/dL Hct (42-52) % RDW Coeff of Marva (11.5-14.5) % [place] # (Auto) (0.11-0.59) K/uL Glucose 148 H (70-99) mg/dl POC Glucose 139 H (70-99) POC Glucose (other) 144 H (70-99) mg/dl Hemoglobin A1c (4.5-5.6) % 02/07/19 02/07/19 02/07/19 Range/Units 06:02 06:02 11:36 RBC 3.51 L (4.7-6.1) M/uL Hgb 9.8 L (14.0-18.0) g/dL Hct 30.1 L (42-52) % RDW Coeff of Marva 14.8 H (11.5-14.5) % [place] # (Auto) 0.62 H (0.11-0.59) K/uL Glucose (70-99) mg/dl POC Glucose 138 H (70-99) POC Glucose (other) (70-99) mg/dl Hemoglobin A1c 6.7 H (4.5-5.6) % Diagnostic Findings MRi brain- Findings remain most suggestive of a subacute infarct in the left parieto-occipital region. No hemorrhagic conversion. Resolution of prior faint enhancement in this region. Old left frontoparietal infarct. Extensive chronic small vessel ischemic change with old lacunar infarcts. Redemonstration of occlusion or slow flow within the right ICA. Severe stenosis was evident on recent CTA head, which likely favors the current appearance representing extremely slow flow.
[2019-02-07] MEDS ORDERED: Nursing to Pharmacy Communication ONE (15:35)
--- NOTE | 2019-02-07 16:38 | Hospitalist Progress Note ---
Date of Service February 07, 2019 Assessment & Plan (1) Seizure: presented with unresponsiveness , hypotensive episode , followed by witnessed Sz at home and after arrival to ER started on Keppra pt was intubated for airway protection -extubated , no respiratory distress, comfortable appreciate input from Neurology EEG -no active Sz noted -somewhat low voltage no epileptiform activity or lateralizing slow-wave activity recommends to cont Keppra 750 mg BID d/c Ultram ( pt's home med ) can lower sz threshold SEIZURE ACTIVITY POSSIBLY DUE TO PRIOR CVA pt had left sided CVA in September leading to rt sided weakness presents with new onset of SZ possible Seizures due to prior CVA ACUTE RENAL FAILURE : On admission Cr 1.41 possible due to hypotensive episodes BP was 73/51-95/61 given IV fluids, requires to be on pressors ( IV lephophed briefly ) renal function improved to baseline Cr trended down to 0.89. HX OF PRIOR CVA WITH CAROTID ARTERY DISEASE : hx of total occlusion of the right internal carotid, a left posterior hemispheric CVA in September 2018 -leading to rt sided weakness -was admitted in [facility] s/p recent left carotid endarterectomy , admitted with Sz like activity , hypotension , unresponsiveness, worsening of rt sided weakness "Stroke alert " was called pt was seen by [facility] Neurology was ordered tPA -given risk of acute CVA was intubated for airway protection MRI of brain shows no new CVA , subacute -possible due to past stroke pt was monitored in ICU as per tPA protocol /Keep MAP 100 to allow cerebral perfusion /prevent cerebral ischemia -which can precipitate stroke remains stable with no bleeding complication , extubated later transferred out of ICU appreciate input from Neurology recommends to start on dual antiplatelets Aspirin 81 mg and Plavix 75 mg once bleeding risk is low after tPA administration high intensity statin with goal LDL < 70 (2) CAD (coronary artery disease): no evidence of ACS ECHO ordered (3) Carotid artery occlusion: CODE STATUS : full code DISPOSITION ; cont PT/OT may need rehab update given pt and family members at bedside Subjective pt sitting up on chair awake and alert , communicating per family members rt sided weakness ( from prior CVA ) has improved no Sz activity since admission vitals been stable Physical Exam Constitutional: WD/WN, vitals as above no acute distress Eyes: sclerae not anicteric Respiratory: no respiratory distress Auscultation: no crackles, no rales and no wheezes Cardiovascular: RRR, no murmur, no edema Gastrointestinal (Abdomen): Inspection/Auscultation: abdomen not distended Percussion/Palpation: abdomen soft Skin: no rashes, warm and dry Trauma: no contusion Neurologic: PERRL, EOMI, accommodation nl, no face palsy, no dysarthria + focal motor deficit (rt sided weakness from prior cva) Psychiatric: A+Ox3, euthymic affect Results & Data Vital Signs (Past 12 Hours) Vital Signs Temp Pulse Resp BP Pulse Ox 02/07/19 16:00 91 H 29 H 157/84 H 95 02/07/19 15:53 84 02/07/19 15:00 36.6 C 82 22 149/76 H 97 02/07/19 14:09 92 H 23 147/70 H 02/07/19 13:00 85 25 H 139/64 02/07/19 12:36 88 24 02/07/19 12:00 84 23 119/61 95 02/07/19 11:30 83 29 H 96 02/07/19 11:00 85 28 H 112/59 L 02/07/19 10:30 86 26 H 99 02/07/19 10:10 85 23 142/69 H 100 02/07/19 10:01 102 H 32 H 146/72 H 95 02/07/19 09:30 82 23 96 02/07/19 09:00 80 24 126/63 94 02/07/19 08:30 84 24 98 02/07/19 08:00 84 146/69 H 100 02/07/19 07:59 84 125/72 100 02/07/19 07:38 83 140/70 100 02/07/19 07:30 83 100 02/07/19 07:00 83 99 02/07/19 06:30 87 100 02/07/19 06:00 37 C 84 20 165/79 H 88 L 02/07/19 05:57 85 165/79 H 80 L 02/07/19 05:30 83 91 02/07/19 05:00 37 C 85 20 195/84 H 98
[2019-02-07] MEDS: FERROUS SULFATE 325 MG TAB PO SCH (17:47)
[2019-02-07] MEDS: levETIRAcetam 250 MG TAB PO SCH (17:47)
[2019-02-07] MEDS: ATORVASTATIN 40 MG TAB PO SCH (20:44)
[2019-02-07] MEDS: FAMOTIDINE 20 MG TAB PO SCH (20:44)
[2019-02-07] MEDS: ASCORBIC ACID 500 MG TAB PO SCH (20:45)
[2019-02-07] MEDS ORDERED: levETIRAcetam 250 MG TAB PO SCH (21:00)
[2019-02-08] MEDS: NORMOSOL-R 1,000 ML IV SCH (01:36)
[2019-02-08] MEDS: LEVOTHYROXINE SODIUM 25 MCG TABLET PO SCH (07:19)
[2019-02-08] MEDS: levETIRAcetam 250 MG TAB PO SCH ×2 (07:20→17:05)
[2019-02-08] MEDS: HEPARIN SOD 5,000 UNIT/0.5 ML VIAL SQ SCH ×3 (07:20→20:58)
[2019-02-08] MEDS: INSULIN ASPART 100 UNITS/ML 3 ML PEN SC SCH ×4 (08:02→20:58)
[2019-02-08] MEDS: FERROUS SULFATE 325 MG TAB PO SCH ×2 (08:03→17:03)
[2019-02-08] MEDS: DOCUSATE SODIUM 100 MG CAP PO SCH (08:03)
[2019-02-08] MEDS: ASCORBIC ACID 500 MG TAB PO SCH ×2 (08:04→20:58)
[2019-02-08] MEDS: FAMOTIDINE 20 MG TAB PO SCH ×2 (08:04→20:58)
[2019-02-08] MEDS: FUROSEMIDE 40 MG TAB PO SCH (08:04)
[2019-02-08] MEDS: FOLIC ACID 1 MG TAB PO SCH (08:04)
[2019-02-08] MEDS: TICAGRELOR 90 MG TAB PO SCH ×2 (08:05→21:45)
[2019-02-08] MEDS: cephALEXin 500 MG CAP PO SCH (08:05)
[2019-02-08] MEDS ORDERED: ASPIRIN 81 MG ECTAB PO SCH (09:00)
--- NOTE | 2019-02-08 13:39 | Hospitalist Progress Note ---
Date of Service February 08, 2019 Assessment & Plan (1) Seizure: Patient presented with unresponsiveness , hypotensive episode , followed by witnessed Seizure at home and after arrival to ER Seizure --MRI Brain:Findings remain most suggestive of a subacute infarct in the left parieto-occipital region. No hemorrhagic conversion. Resolution of prior faint enhancement in this region. Old left frontoparietal infarct. Extensive chronic small vessel ischemic change with old lacunar infarcts. Re-demonstration of occlusion or slow flow within the right ICA. Severe stenosis was evident on recent CTA head, which likely favors the current appearance representing extremely slow flow. --EEG:This is a normal EEG revealing no evidence for focal or generalized encephalopathy no evidence for potentially epileptogenic activity. The absence of the latter however does not exclude the clinical diagnosis of a seizure disorder Patient is intubated for airway protection S/P Extubation Started on keppra 750 mg BID Ultram(home medication)--discontinue Appreciate Neurology Input Needs follow up with Neurology upon discharge Urinary tract infection Urine culture: E. coli Continue Omnicef Day #2/7 Acute Renal Failure Cr: 1.41>>0.89 Monitor renal function Avoid Nephrotoxic agents as able H/O Prior CVA with Carotid Artery Disease H/O Total occlusion of the right internal carotid, a left posterior hemispheric CVA in September 2018 -leading to rt sided weakness -was admitted in [facility] S/P left carotid endarterectomy ? Worsening right-sided weakness MRI brain suggestive of possible subacute stroke as above S/P TPA Neurology on board Continue aspirin, Brilinta, statin PT/OT Many need Rehab placement (2) CAD (coronary artery disease): Continue home medications (3) Carotid artery occlusion: Continue aspirin, Brilinta, statin Code Status: full code Disposition : May need Rehab placement Subjective Patient seen and examined at bedside Mental status improved as per family Offers no complaints Urine culture growing E. coli Denies any new focal weakness Also denies any chest pain, shortness of breath, dizziness, nausea, abdominal pain Family at bedside Review of Systems Review of Systems: All systems reviewed & are unremarkable except as noted in HPI & below Physical Exam Physical Exam: Physical Exam: Vitals signs as noted above General Appearance:Moderately built and nourished, no apparent distress Head: normocephalic, Atraumatic Eyes: normal inspection, EOMI Neck: supple, Trachea midline Respiratory/Chest: Normal breath sounds, CTA Cardiovascular: S1, S2, No murmur Abdomen/GI:Soft, Non tender, Bowel sounds present Extremities/Musculoskelatal:normal inspection, Trace edema Neurologic/Psych:Alert, awake, R UE and R LE weakness Skin: normal color, warm Results & Data Vital Signs (Past 12 Hours) Vital Signs Temp Pulse Pulse Resp BP Pulse Ox 02/08/19 12:23 37.0 C 68 19 160/81 H 95 02/08/19 08:49 95 H 02/08/19 07:25 36.6 C 93 H 22 157/78 H 95 02/08/19 04:31 37.0 C 91 H 20 132/72 93
--- NOTE | 2019-02-08 15:50 | Communication Note ---
Date of Service: February 08, 2019 Mr. morley's is improved he still has a mild right hemiparesis and according to his this is still not back to his baseline from his postoperative state last week and following his series of seizures that precipitated his current admission His mood is good he is awake alert right arm function is improving he has bilateral significant visual loss and is "legally blind On the suggest we continue the Keppra 500 mg orally twice a day if he can now take oral medications and that he be assessed for potential short-term inpatient rehabilitation at [facility] where he is been seen now for outpatient therapy but might benefit from a brief inpatient stay to solidify things and provide more intensive treatment following this probable post ictal increase in his hemiparesis My personal feeling is that he did have a small perioperative cerebrovascular accident superimposed upon his old infarction and that his decline postoperative bili was due to this and that the current seizure may actually be part of an acute post infarction syndrome rather than due to the remote stroke and if this is the case there may be hope in the next year or so to get him off the Keppra although frankly it may be wiser just to keep this on board indefinitely as he does have quite a number of risk factors for seizures anyway based on his age, underlying vascular disease and other medical problems We will take another look at him tomorrow but eventually are going to sign off the case and his neurologic care will probably be rendered within either the [place] system or perhaps an [facility] in [place] Rivera Walsh MD
[2019-02-08] MEDS: CEFDINIR 300 MG CAP PO SCH (20:58)
[2019-02-08] MEDS: ATORVASTATIN 40 MG TAB PO SCH (20:58)
[2019-02-09] MEDS: HEPARIN SOD 5,000 UNIT/0.5 ML VIAL SQ SCH ×2 (06:09→13:51)
[2019-02-09] MEDS: levETIRAcetam 250 MG TAB PO SCH (06:09)
[2019-02-09] MEDS: LEVOTHYROXINE SODIUM 25 MCG TABLET PO SCH (06:09)
[2019-02-09 07:16] LABS: Hematocrit (blood only) 33.3 % (42-52); Hemoglobin 10.8 g/dL (14.0-18.0); Mean Corpuscular Hemoglobin 27.7 pg (25-34); Mean Corpuscular Hgb Conc 32.4 g/dL (32-36); Mean Corpuscular Volume 85.4 fL (80-100); Mean Platelet Volume 8.8 fL (7.4-10.4); Platelet Count 312 K/uL (130-400); RDW Coefficient of Variation 14.6 % (11.5-14.5); RDW Standard Deviation 45.7 fL (36.4-46.3); White Blood Count 7.32 K/uL (4.8-10.8)
[2019-02-09] MEDS: INSULIN ASPART 100 UNITS/ML 3 ML PEN SC SCH ×2 (07:55→11:54)
[2019-02-09] MEDS: FERROUS SULFATE 325 MG TAB PO SCH (07:57)
[2019-02-09] MEDS: TICAGRELOR 90 MG TAB PO SCH (07:58)
[2019-02-09] MEDS: ASCORBIC ACID 500 MG TAB PO SCH (07:59)
[2019-02-09] MEDS: FUROSEMIDE 40 MG TAB PO SCH (07:59)
[2019-02-09] MEDS: FOLIC ACID 1 MG TAB PO SCH (07:59)
[2019-02-09] MEDS: FAMOTIDINE 20 MG TAB PO SCH (07:59)
[2019-02-09] MEDS: CEFDINIR 300 MG CAP PO SCH (08:00)
[2019-02-09] MEDS: DOCUSATE SODIUM 100 MG CAP PO SCH (08:02)
[2019-02-09] MEDS ORDERED: ASPIRIN 325 MG ECTAB PO SCH (09:00)
--- NOTE | 2019-02-09 14:06 | Hospitalist Progress Note ---
Date of Service February 09, 2019 Assessment & Plan (1) Seizure: Patient presented with unresponsiveness , hypotensive episode , followed by witnessed Seizure at home and after arrival to ER Seizure --MRI Brain:Findings remain most suggestive of a subacute infarct in the left parieto-occipital region. No hemorrhagic conversion. Resolution of prior faint enhancement in this region. Old left frontoparietal infarct. Extensive chronic small vessel ischemic change with old lacunar infarcts. Re-demonstration of occlusion or slow flow within the right ICA. Severe stenosis was evident on recent CTA head, which likely favors the current appearance representing extremely slow flow. --EEG:This is a normal EEG revealing no evidence for focal or generalized encephalopathy no evidence for potentially epileptogenic activity. The absence of the latter however does not exclude the clinical diagnosis of a seizure disorder Patient is intubated for airway protection S/P Extubation Started on keppra 750 mg BID Ultram(home medication)--discontinued Appreciate Neurology Input Needs follow up with Neurology upon discharge Has follow up his Neuro surgeon Dr.Russell House on Feb 21 Urinary tract infection Urine culture: E. coli Continue Omnicef Day #3 Acute Renal Failure Cr: 1.41>>0.89 Monitor renal function Avoid Nephrotoxic agents as able H/O Prior CVA with Carotid Artery Disease H/O Total occlusion of the right internal carotid, a left posterior hemispheric CVA in September 2018 -leading to rt sided weakness -was admitted in [facility] S/P left carotid endarterectomy ? Worsening right-sided weakness on presentation MRI brain suggestive of possible subacute stroke as above S/P TPA Neurology on board Continue aspirin, Brilinta, statin PT/OT Many need Rehab placement (2) CAD (coronary artery disease): Continue home medications (3) Carotid artery occlusion: Continue aspirin, Brilinta, statin Code Status: full code Disposition : Plan to discharge to Rehab facility today Subjective Patient seen and examined at bedside No new complaints Doing well today Denies any chest pain, shortness of breath, dizziness, nausea, abdominal pain Family at bedside Planned to be discharged to rehab facility today Review of Systems Review of Systems: All systems reviewed & are unremarkable except as noted in HPI & below Physical Exam Physical Exam: Physical Exam: Vitals signs as noted above General Appearance:Moderately built and nourished, no apparent distress Head: normocephalic, Atraumatic Eyes: normal inspection, EOMI Neck: supple, Trachea midline Respiratory/Chest: Normal breath sounds, CTA Cardiovascular: S1, S2, No murmur Abdomen/GI:Soft, Non tender, Bowel sounds present Extremities/Musculoskelatal:normal inspection, Trace edema Neurologic/Psych:Alert, awake, R UE and R LE weakness Skin: normal color, warm Results & Data Vital Signs (Past 12 Hours) Vital Signs Temp Pulse Pulse Resp BP Pulse Ox 02/09/19 11:07 36.9 C 96 H 20 165/86 H 94 02/09/19 08:00 106 H 02/09/19 07:49 36.3 C L 94 H 19 164/83 H 93 02/09/19 03:59 36.3 C L 89 18 151/79 H 95 Laboratory Results Short CBC 02/09/19 Range/Units 07:01 WBC 7.32 (4.8-10.8) K/uL Hgb 10.8 L (14.0-18.0) g/dL Hct 33.3 L (42-52) % Plt Count 312 (130-400) K/uL
[2019-02-09] MEDS ORDERED: STROKE PATIENT DISCHARGE STA (14:14)
--- NOTE | 2019-02-09 14:18 | Discharge Summary ---
Date of Service February 09, 2019 Admission HPI Per Admitting Provider CHIEF COMPLAINT: CVA and seizures. HISTORY OF PRESENT ILLNESS: This is a 73-year-old male with past medical history significant for type 2 diabetes, history of CAD, hypertension, obesity, history of CVA, presents with seizures and CVA. The patient in September had episode of CVA with right-sided weakness. He was found to have occlusion of the left internal carotid artery and last Wednesday he was admitted to [facility] [address] for stent placement. During that hospitalization he had some issues with hypotension and seems he was in ICU for couple of days.He was discharged last Wednesday. The patient then today in the night, he woke up and was speaking gibberish, not making sense. His called EMS. When EMS came in, he had a seizure episode. He was given Versed and brought in here and got intubated and stroke alert was called and he was having more weakness in the right side than usual. He had some residual weakness from previous stroke, but this seemed to be more so stroke alert was called and he was given TPA. CTA of the head and neck was done. Initially, there was question of whether the seizure is causing from hypotension, but in ER he hand another seizure episode when the systolic blood pressure was in 140-160 range. He was given another dose of Versed and on-call stroke alert doctor was called and advised for loading with Keppra 1000 mg and then 750 b.i.d. and CTA came back as 100% occlusion to the right RCA which is chronic and his symptoms seem to be from the left hemisphere. Arianne neurologist advised to keep his MAP greater than 100 and follow the post-TPA protocol and MRI scans. Initially, the family wanted to transfer him back to the [facility], but as per the ER physician, because of the bad weather it was not possible, so the patient is going to be admitted to the ICU and is going to get MRI scans now. Currently, he is on mechanical vent and is sedated with Versed. As per the since discharge he was doing okay. He was ambulating with support. No recent fever or chills. No complaint of any pain, he called and told one of the family members that he gets short of breath and has to take deep breaths. No nausea, no vomiting. He has some vision issues since his recent stroke and he is swallowing okay. No fevers, no complaints of pain. No diarrhea or constipation. Admission Exam Per Admitting Provider PHYSICAL EXAMINATION: GENERAL: The patient is status post intubation. VITAL SIGNS: Temperature 37.2, pulse 107, respiratory rate 25, blood pressure 107/61, oxygen on mechanical vent 60% FIO2. HEENT: No pallor. Pupils sluggish to react. NECK: No JVD, no neck masses. CARDIOVASCULAR: S1, S2 heard. Tachycardia. No murmurs. RESPIRATORY SYSTEM: Normal AP diameter. No accessory muscle use. No wheezing, no crackles. ABDOMEN: Soft, bowel sounds present. No distention. CENTRAL NERVOUS SYSTEM: Status post intubation and sedation. EXTREMITIES: No edema, no erythema. Principal Diagnosis Seizure Urinary tract infection Acute kidney injury Possible subacute stroke Discharge Data Allergies Allergy/AdvReac Type Severity Reaction Status Date / Time tramadol [From Ultram] Allergy Severe Seizure Verified 02/07/19 10:33 Consultations 02/06/19 05:13 ED Decision to Admit Stat 02/06/19 06:42 Consult Case Management - Discharge Planning Routine Consult Case Management - Discharge Planning Routine Consult Sewer Hand Routine 02/06/19 08:00 Consult Neurology Routine Procedures Performed --MRI Brain:Findings remain most suggestive of a subacute infarct in the left parieto-occipital region. No hemorrhagic conversion. Resolution of prior faint enhancement in this region. Old left frontoparietal infarct. Extensive chronic small vessel ischemic change with old lacunar infarcts. Re-demonstration of occlusion or slow flow within the right ICA. Severe stenosis was evident on recent CTA head, which likely favors the current appearance representing extremely slow flow. --EEG:This is a normal EEG revealing no evidence for focal or generalized encephalopathy no evidence for potentially epileptogenic activity. The absence of the latter however does not exclude the clinical diagnosis of a seizure disorder --Head MRA:Occlusion of the right ICA with reconstitution of flow within the supraclinoid segment, likely secondary to collateral flow through the [place]. No aneurysm or dissection. --Neck MRA: Severely compromised exam due to postoperative artifact as well as considerable patient motion. This examination does not add additional information compared to the patient's prior CT angiographic study. MRI suggests occlusion right internal carotid artery with potential intracranial vascular collateral reconstitution at the supraclinoid aspect of the right internal carotid artery. Operative changes consistent with a prior left carotid endarterectomy,. This study suggests complete occlusion of the operative site as well as proximal to mid left internal carotid artery. This is a discordant finding compared to the prior CT study, possibly secondary to motion and operative artifact of the left carotid system. The CT study is considered more accurate than this exam. Ordered Studies 02/06/19 02:11 CT head/brain wo con Urgent 02/06/19 03:37 CT angio head w con Urgent CT angio neck with con Urgent 02/06/19 05:26 MR angio head wo con Urgent MR angio neck wo/w con Urgent MR brain wo/w con Urgent 02/06/19 16:20 US point of care ultrasound Routine 02/07/19 08:49 MR brain wo/w con Stat Hospital Course (1) Seizure: Patient presented with unresponsiveness , hypotensive episode , followed by witnessed Seizure at home and after arrival to ER Seizure --MRI Brain:Findings remain most suggestive of a subacute infarct in the left parieto-occipital region. No hemorrhagic conversion. Resolution of prior faint enhancement in this region. Old left frontoparietal infarct. Extensive chronic small vessel ischemic change with old lacunar infarcts. Re-demonstration of occlusion or slow flow within the right ICA. Severe stenosis was evident on recent CTA head, which likely favors the current appearance representing extremely slow flow. --EEG:This is a normal EEG revealing no evidence for focal or generalized encephalopathy no evidence for potentially epileptogenic activity. The absence of the latter however does not exclude the clinical diagnosis of a seizure disorder Patient is intubated for airway protection S/P Extubation Started on keppra 750 mg BID Ultram(home medication)--discontinued Appreciate Neurology Input Needs follow up with Neurology upon discharge Has follow up his Neuro surgeon Dr.Russell House on Feb 21 Urinary tract infection Urine culture: E. coli Continue Omnicef Day #3/ Acute Renal Failure Cr: 1.41>>0.89 Monitor renal function Avoid Nephrotoxic agents as able H/O Prior CVA with Carotid Artery Disease H/O Total occlusion of the right internal carotid, a left posterior hemispheric CVA in September 2018 -leading to rt sided weakness -was admitted in [facility] S/P left carotid endarterectomy ? Worsening right-sided weakness on presentation MRI brain suggestive of possible subacute stroke as above S/P TPA Neurology on board Continue aspirin, Brilinta, statin PT/OT Many need Rehab placement (2) CAD (coronary artery disease): Continue home medications (3) Carotid artery occlusion: Continue aspirin, Brilinta, statin Code Status: full code Disposition : Plan to discharge to Rehab facility today Total Time Total Time Spent Total Time Spent (In Minutes): 42 minutes Total Time Includes: Examination of the Patient, Discharge Planning, Medication Reconciliation, Communication With Other Providers and Other Discharge Plan Discharge Items Patient Disposition: Transfer Inpatient Rehab Fac Reason For Visit: SEIZURE, RIGHT SIDED WEAKNESS Discharge Diagnosis: Seizure Urinary tract infection Acute kidney injury Possible subacute stroke Activity: Resume your previous activity Exercise/Sports: Gradually increase as tolerated Non-emergency contact: Primary Care Provider, Surgeon and Neurologist Call non-emergency contact if: you have any medication questions, your symptoms worsen, your pain is not controlled, your pain is worsening, your pain is unusual for you, your pain is concerning for you and you have a fever Follow-up/Referrals: Raysa Hobbs M.D. [Primary Care Provider] - Diet: Carb Consistent or DM2 and Heart Healthy Addtl Attending Provider Instructions: Follow-up with your primary care physician Dr. Raysa Hobbs at [place] in 1 week upon discharge from rehab facility Follow-up with your neurologist Dr. Rivera Walsh in 2 to 3 weeks as advised Follow-up with your neurosurgeon Dr. Bobby House on Feb 21, 2019 as scheduled Complete the antibiotic course for urinary tract infection as prescribed Do not take tramadol for pain control as it decreases your threshold to develop recurrent seizures. Seek immediate medical attention if your symptoms reoccur or worsen Risk Factors for Stroke: You can reduce your chances of stroke by working with your medical provider to adopt a healthy lifestyle. Some specific ways to lower your chance of stroke are: * If you are a smoker, now is the time to stop smoking cigarettes * If you are diabetic, improve the control of your blood sugars * Avoid excessive amounts of alcohol * Control high blood pressure * Lose weight if you are overweight * Be sure to lead an active lifestyle * Eat a healthy diet low in salt, cholesterol and fat You should know about other risk factors for stroke that you are unable to control. These include: * Age 55 years or older * Male gender * Certain racial groups: , or / * Family History of Stroke, Mini stroke or Heart Attack * Sickle Cell Disease Follow Up: It is important for you to keep your follow up appointments with your medical provider. Who to Call and When: Medical Emergencies: Call 911 immediately if you experience any of the following warning signs and symptoms of Stroke: * Sudden numbness or weakness of the face, arm or leg, especially on one side of the body * Sudden confusion, trouble speaking or understanding * Sudden trouble seeing in one or both eyes * Sudden trouble walking, dizziness, loss of balance or coordination * Sudden severe headache with no cause Do not delay calling 911 if you experience any warning signs or symptoms of a stroke. Delay in seeking medical attention may affect what treatments can be given to you. . Pending Studies at Discharge: No Stand-Alone Forms: My [facility] Sk[facility] Items Patient informed of condition?: Yes DNR: No Discharge Level of Care: Acute rehab Communicable Disease: No Discharge Prognosis: Improving Lines: None Urinary Catheter: No Medications and DC Order Prescriptions: New levetiracetam [Keppra] 250 mg Tablet 750 mg PO BID Qty: 60 RF: 1 cefdinir 300 mg Capsule 300 mg PO BID Qty: 9 RF: 0 Continued furosemide 40 mg tablet 40 mg PO QAM RF: 0 atorvastatin 40 mg tablet 40 mg PO HS RF: 0 glipizide 10 mg Tablet 10 mg PO BIDM RF: 0 levothyroxine 25 mcg tablet 25 mcg PO QAM RF: 0 ferrous sulfate 325 mg (65 mg iron) tablet 325 mg PO TIDM RF: 0 metformin 1,000 mg tablet 1,000 mg PO BID RF: 0 folic acid 1 mg Tablet 1 mg PO DAILY RF: 0 sennosides [senna] 8.6 mg Tablet 8.6 mg PO DAILY PRN (Reason: Constipation) RF: 0 aspirin 325 mg Tablet 325 mg PO DAILY RF: 0 ascorbic acid (vitamin C) 500 mg Tablet 500 mg PO BID RF: 0 metoprolol succinate 25 mg tablet extended release 24 hr 12.5 mg PO DAILY RF: 0 ticagrelor 90 mg Tablet 90 mg PO BID RF: 0 acetaminophen 325 mg Tablet 975 mg PO TID PRN (Reason: mild pain 1-3 scale) RF: 0 famotidine 20 mg Tablet 20 mg PO BID RF: 0 docusate sodium 100 mg Tablet 100 mg PO DAILY RF: 0 Discontinued tramadol 50 mg tablet 50 mg PO Q4 PRN (Reason: pain scale 7-10) RF: 0 Discharge Orders: Discharge Order (Routine); Ordered 02/09/19 Ordered By: Gagan Nolasco Admission Data Admit Date/Time: 02/06/19 05:20 Attending Provider: Gagan Nolasco Admit Provider: Geoffrey Wiggins Primary Care Provider: Raysa Hobbs Other Providers: Geoffrey Wiggins ; Cullen Jon ; Gayle Cordero ; Rivera Escamilla ; Gayle Davies ; Lauri Gomez ; [facility] Other [place] Date/Time DO NOT enter until pt leaves facility: 02/09/19 15:53
== END 2019-02-09 15:53 | DRG 57 ==
LOC: ED 02:04 → SUATTDRO 05:20 → 1E 05:20 → 2S 02-07 17:05

== ENCOUNTER 2019-02-19 23:51 | Observation (INO) ==
[2019-02-20 00:24] LABS: Basophils # (auto) 0.03 K/uL (0-0.2); Basophils % (auto) 0.3 %; Eosinophils # (auto) 0.11 K/uL (0-0.5); Eosinophils % (auto) 0.9 %; Hematocrit (blood only) 35.5 % (42-52); Hemoglobin 11.7 g/dL (14.0-18.0); Immature Granulocytes # (auto) 0.02 K/uL (0.00-0.02); Immature Granulocytes % (auto) 0.2 %; Lymphocytes # (auto) 2.47 K/uL (1.2-3.4); Lymphocytes % (auto) 20.8 %; Mean Corpuscular Hemoglobin 28.7 pg (25-34); Mean Corpuscular Volume 87.2 fL (80-100); Mean Platelet Volume 9.3 fL (7.4-10.4); Monocytes # (auto) 0.81 K/uL (0.11-0.59); Monocytes % (auto) 6.8 %; Neutrophils # (auto) 8.45 K/uL (1.4-6.5); Platelet Count 352 K/uL (130-400); RDW Coefficient of Variation 15.2 % (11.5-14.5); RDW Standard Deviation 47.7 fL (36.4-46.3); Red Blood Count 4.07 M/uL (4.7-6.1); White Blood Count 11.89 K/uL (4.8-10.8)
[2019-02-20 00:41] LABS: Alanine Aminotransferase 20 U/L (12-78); Albumin Level 3.2 gm/dl (3.4-5.0); Aspartate Aminotransferase 11 U/L (15-37); BUN Creatinine Ratio 21.2 (10-20); Blood Urea Nitrogen 24 mg/dl (7-18); Calcium 9.3 mg/dl (8.5-10.1); Carbon Dioxide 24 mmol/L (21-32); Chloride 103 mmol/L (98-107); Creatinine Clr Calc Pharmacy 78.2 ml/min; Est GFR (African American) 74.6; Est GFR (Non-African American) 64.3; Glucose 126 mg/dl (70-99); Magnesium 1.6 mg/dl (1.8-2.4); Sodium 136 mmol/L (136-145)
[2019-02-20 00:52] LABS: Albumin Globulin Ratio 0.7 (0.9-2); Alkaline Phosphatase 102 U/L (45-117); Bilirubin,Total 0.5 mg/dl (0.2-1); Globulin 4.8 gm/dl (2.5-4.0); Troponin I < 0.015 ng/ml (0-0.045)
[2019-02-20] MEDS ORDERED: SODIUM CHLORIDE 0.9% 500 ML IV ONE (01:02)
[2019-02-20 01:05] LABS: T4 Free Thyroxine 1.17 ng/dl (0.8-1.6)
[2019-02-20] MEDS ORDERED: SENNA 8.6 MG TAB PO PRN (03:11)
[2019-02-20] MEDS ORDERED: ACETAMINOPHEN 325 MG TAB PO PRN ×2 (03:11)
[2019-02-20] MEDS ORDERED: ONDANSETRON INJ 2 MG/ML 2 ML VIAL IV PRN (03:11)
[2019-02-20] MEDS ORDERED: NITROGLYCERIN SL 0.4 MG/TAB TAB SL PRN (03:11)
[2019-02-20] MEDS ORDERED: METOPROLOL TARTRATE 1 MG/ML VIAL IV PRN (03:11)
--- NOTE | 2019-02-20 03:33 | History and Physical Report ---
DATE OF ADMISSION: 02/20/2019 CHIEF COMPLAINT: Chest pain, shortness of breath, and supraventricular tachycardia. HISTORY OF PRESENT ILLNESS: This is a 73-year-old male with past medical history significant for type 2 diabetes, history of coronary artery disease, hypertension, obesity, who recently in September had an episode of CVA with right-sided weakness. He was recently admitted on 02/06/2019 with seizures and CVA. He was treated with Keppra and was status post TPA at that time and MRI findings showed subacute infarct in the left parieto-occipital region and also old left frontoparietal infarct and chronic small vessel ischemic changes with old lacunar infarcts and also he has old chronic occlusion of the right carotid artery. The patient did okay and discharged to [facility]. Today while he was at the dinner table, he was feeling chest pain and shortness of breath and EMS was called and he was found to be in SVT and heart rate in 170s and status post IV adenosine, which converted him to sinus rhythm. The patient is currently resting comfortably and hemodynamically stable. Heart rate is like in the 100 range. The patient is sleepy. Family in the room. The patient currently denies any chest pain, no shortness of breath, no headache. 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 Currently ambulating with a walker without any support. His appetite is not that great, but eating regular diet and swallowing okay. Denies any headache, no dizziness, no earache, no sore throat, no cough, no recent fever or chills. No nausea, no abdominal pain. He says he is constipated. His stools are always black because of iron pills. Normal bladder movements, no burning micturition, no swelling in the legs, no rash. ALLERGIES: TRAMADOL. PAST MEDICAL HISTORY: As mentioned above. PAST SURGICAL HISTORY: Cardiac catheterization in 1998, but no stent was placed, history of right knee arthroscopy, cataract surgery, recent left carotid stent placement. FAMILY HISTORY: Significant for CT and stroke. Mother had lung disorder. Sister has gastrointestinal disorder. SOCIAL HISTORY: , quit smoking in 1978. No alcohol use, no drug use as per records. MEDICATIONS: The patient is on Tylenol 975 mg p.o. t.i.d. p.r.n., vitamin C 500 mg p.o. b.i.d., aspirin 325 mg p.o. daily, atorvastatin 40 mg at bedtime, cefdinir 300 mg p.o. b.i.d., Colace 100 mg p.o. daily, famotidine 20 mg p.o. b.i.d., ferrous sulfate 325 mg p.o. t.i.d., folic acid 1 mg p.o. daily, Lasix 40 mg p.o. daily, glipizide 10 mg p.o. b.i.d., Keppra 750 mg p.o. b.i.d., levothyroxine 25 mcg p.o. daily, metformin 1000 mg p.o. b.i.d., Toprol-XL 12.5 mg p.o. daily, Senokot S 8.6 mg p.o. daily p.r.n., Brilinta 90 mg p.o. b.i.d. REVIEW OF SYMPTOMS: As per HPI. Rest of the symptoms negative. PHYSICAL EXAMINATION: GENERAL: The patient is sleepy, but arousable and oriented. VITAL SIGNS: Temperature 36.6, pulse 101, respiratory rate 19, blood pressure 153/87, oxygen 99% on 2 liters. HEENT: No pallor, no icterus. Pupils sluggish to react to light. NECK: No neck masses. Supple. CARDIOVASCULAR: S1, S2 heard, regular rate and rhythm, no murmur, no gallop. RESPIRATORY SYSTEM: Normal AP diameter. No accessory muscle use. No wheezing, no crackles. ABDOMEN: Soft, bowel sounds present, nontender, no distention. CENTRAL NERVOUS SYSTEM: Drowsy, but alert and oriented, right-sided weakness. EXTREMITIES: No edema, no erythema. LABORATORY DATA: WBC 11.8, hemoglobin 11.7, hematocrit 35.5, platelets 325. Sodium 136, potassium 4, chloride 103, bicarbonate 24, BUN 24, creatinine 1.1, serum glucose 126, calcium 9.3, magnesium 1.6, total bilirubin 0.5, AST 11, ALT 20, alkaline phosphatase 102. Troponin I less than 0.015. TSH of 10.3, free T4 of 1.1. IMAGING DATA: Chest x-ray, no acute findings. EKG: Sinus tachycardia at a rate of 115, no significant change was found. ASSESSMENT AND PLAN: This is a 73-year-old male who presents with chest pain, shortness of breath, and supraventricular tachycardia. 1. Supraventricular tachycardia, resolved with IV adenosine. Chest pain, and shortness of breath mostly from SVT.Currently asymptomatic. We will monitor in the tele floor. We will place on IV Lopressor p.r.n. Continue his home Toprol-XL 12.5 daily. We will consult cardiology for further readjustment of medications. Recently had echo. 2. History of two cerebrovascular accidents, first was in September of this year with right-sided weakness from left frontoparietal infarct and recently on 02/06/2019 he had a stroke in the left parietooccipital region. Still has some right-sided weakness. He is at [facility] for rehabilitation. Ambulating with walker. Blind in the left eye and minimal vision in the right eye. He is on regular diet. We will continue his full-dose aspirin, Brilinta, statin. PT and OT when stable. May need to go back to rehab when stable. 3. Hyperlipidemia. Continue statin. 4. Seizures. Last admission had seizures, started on Keppra, will continue Keppra. 5. Coronary artery disease, continue his aspirin, Brilinta, Toprol-XL, and statin. Currently stable. 6. Carotid artery occlusion. Continue aspirin, Brilinta, statin. Status post stents to the left carotid artery. Right carotid artery has chronic 100% occlusion. Needs followup. 7. Code status. Full code. 8. Disposition: Observe in tele floor. PT and OT per discharge. Social service to help with discharge planning. Level 1 full code as per my discussion with the family. KAILASH
[2019-02-20] MEDS: LEVOTHYROXINE SODIUM 25 MCG TABLET PO SCH (05:48)
--- NOTE | 2019-02-20 05:56 | Emergency Department Note ---
Entered by Clinton Pizano acting as a scribe for History of Present Illness General Chief complaint: Chest Pain Stated complaint: CHEST PAIN Time Seen by Provider: 02/19/19 23:52 Source: patient and EMS History of Present Illness Onset (ago): day(s) (tonight) Location: chest Pain Consistency: + now resolved Quality: + other (CP and SOB) Relieved By: + medication (adenosine) Associated symptoms: + other (Positive for constipation. Negative for nausea and abdominal pain.) The patient is a 73 year old male who presents to the emergency department with complaints of resolved CP and SOB beginning tonight. The patient states that he is currently at [facility]. He notes that he developed SOB and CP tonight when he was lying down. Per EMS, the patient was given 6mg of adenosine. The patient reports that he is not having any current SOB and CP after receiving the adenosine. He also complains of constipation. He denies any nausea and abdominal pain. Per EMS, the patient has a history of hypertension and a previous stroke. He states that the patient has right-sided deficits from the stroke. Home Medications Home Medications Medication Instructions Recorded Confirmed Type acetaminophen 975 mg PO TID PRN 02/06/19 02/20/19 History ascorbic acid (vitamin C) 500 mg PO BID 02/06/19 02/20/19 History aspirin 325 mg PO DAILY 02/06/19 02/20/19 History atorvastatin 40 mg PO HS 02/06/19 02/20/19 History docusate sodium 100 mg PO DAILY 02/06/19 02/20/19 History famotidine 20 mg PO BID 02/06/19 02/20/19 History ferrous sulfate 325 mg PO TIDM 02/06/19 02/20/19 History folic acid 1 mg PO DAILY 02/06/19 02/20/19 History furosemide 40 mg PO QAM 02/06/19 02/20/19 History glipizide 10 mg PO BIDM 02/06/19 02/20/19 History levothyroxine 25 mcg PO QAM 02/06/19 02/20/19 History metformin 1,000 mg PO BID 02/06/19 02/20/19 History metoprolol succinate 12.5 mg PO DAILY 02/06/19 02/20/19 History sennosides [senna] 8.6 mg PO DAILY PRN 02/06/19 02/20/19 History ticagrelor 90 mg PO BID 02/06/19 02/20/19 History cefdinir 300 mg PO BID #9 cap 02/09/19 02/20/19 Rx levetiracetam [Keppra] 750 mg PO BID #60 tab 02/09/19 02/20/19 Rx Allergies Allergy/AdvReac Type Severity Reaction Status Date / Time tramadol [From Ultram] Allergy Severe Seizure Verified 02/20/19 00:56 Past Med/Surg History Social History Preferred Language: Occitan Communication Ability: Effective Beliefs That Will Affect Care: None Current Living Situation: Spouse Feels Safe at Home: Yes Safety Concerns: Feels Safe At This Time Smoking Status: Never smoker Hx Alcohol Use: No Hx Substance Use: No Review of Systems See HPI for pertinent positives & negatives. and A total of 10 systems reviewed and were otherwise negative Physical Exam Vital Signs Vital Signs - 24 hr 02/20/19 00:00 02/20/19 00:01 02/20/19 00:04 Temperature 36.6 C Temperature Source Oral Pulse Rate 116 H 118 H 116 H Pulse Rate from SpO2 Sensor 116 H 116 H Pulse Rhythm Regular Respiratory Rate 22 14 24 Respiratory Effort / Characteristics Non-Labored Spontaneous Respiratory Depth Normal Respiratory Pattern Regular Blood Pressure 118/69 118/69 Blood Pressure Mean 85 81 Blood Pressure Position Sitting Pulse Oximetry 94 96 97 Oxygen Delivery Method Room Air Room Air Room Air Oxygen Flow Rate Sepsis Recent Fever Within 48 Hours No Sepsis New/Unexplained Change in Mental Status No Sepsis Action Taken by Nursing No Action Required 02/20/19 00:30 02/20/19 01:00 02/20/19 01:30 Temperature Temperature Source Pulse Rate 112 H 110 H 105 H Pulse Rate from SpO2 Sensor 113 H 109 H 106 H Pulse Rhythm Respiratory Rate 25 H 25 H 26 H Respiratory Effort / Characteristics Respiratory Depth Respiratory Pattern Blood Pressure 112/75 134/78 155/82 H Blood Pressure Mean 81 94 99 Blood Pressure Position Pulse Oximetry 95 95 95 Oxygen Delivery Method Room Air Oxygen Flow Rate Sepsis Recent Fever Within 48 Hours Sepsis New/Unexplained Change in Mental Status Sepsis Action Taken by Nursing 02/20/19 02:00 Temperature Temperature Source Pulse Rate 101 H Pulse Rate from SpO2 Sensor 101 H Pulse Rhythm Respiratory Rate 19 Respiratory Effort / Characteristics Respiratory Depth Respiratory Pattern Blood Pressure 153/87 H Blood Pressure Mean 101 Blood Pressure Position Pulse Oximetry 99 Oxygen Delivery Method Nasal Cannula Oxygen Flow Rate 2 Sepsis Recent Fever Within 48 Hours Sepsis New/Unexplained Change in Mental Status Sepsis Action Taken by Nursing HEENT: Head - normocephalic and atraumatic Pupils are equal, round, and reactive to light. Extraocular eye muscles are intact, and sclera are anicteric. Nose - moist nasal mucosa without discharge. Mouth - moist buccal mucosa. Oropharynx is nonerythematous and there is no tonsillar exudate or edema noted. Neck: Supple; no JVD, nuchal rigidity, cervical lymphadenopathy, or auscultated bruits. Heart: Regular rhythm and tachycardic rate. There is a normal S1 and S2 with no murmurs, clicks, or gallops appreciated. Lungs: Clear to auscultation bilaterally with no wheezes, rales, or rhonchi. Abdomen: Soft, completely nontender, nondistended, with good bowel sounds. There are no palpable pulsatile masses or hepatosplenomegaly. There is no guarding, rigidity, or rebound noted. Extremities: No evidence of cyanosis, clubbing, or edema. There are easily palpable peripheral pulses. Skin: warm and dry with good turgor and no rashes. Course Course 2356: The patient was evaluated in room A12. A complete history and physical examination were performed. Nursing notes and previous electronic medical records were reviewed. IV lock was established and labs were drawn as above. The patient was being observed on the cardiac catheterization technologist. He was in a sinus tachycardia around 110-120. A portable chest x-ray was obtained. 0058: I reevaluated and updated the patient. He is feeling better and his heart rate is down to 109. I reviewed results with his family. His states that the patient is not drinking enough water at [facility]. 0129: I rechecked the patient. His heart rate is 102-104. 0130: Sodium Chloride 500 mls @ 999 mls/hr IV 0150: Upon reevaluation, the patient is stable. He was sleeping. His oxygen saturation was 82% and he was placed on nasal cannula supplemental oxygen. I discussed the findings and the treatment plan with the patient and his . They express agreement and understanding. I spoke with Dr. Wiggins of the [facility]. The patient will be evaluated for further management. Consultations Consultation #1: I reviewed the patient's [facility] He will evaluate the patient for further management. Time: 01:50 Administered Medications Levothyroxine Sodium (Synthroid) 25 mcg PO DAILYBB DHAVAL Stop: 03/22/19 06:29 Last Admin: 02/20/19 05:48 Dose: 25 mcg Documented by: [id number] Discontinued Medications Sodium Chloride (Nss) 500 mls @ 999 mls/hr IV .Q31M ONE Stop: 02/20/19 01:32 Last Infusion: 02/20/19 02:35 Dose: 0 mls/hr Documented by: [id number] Admin: 02/20/19 01:30 Dose: 999 mls/hr Documented by: [id number] Medical Decision Making Differential Diagnosis Differential diagnoses include: cardiac dysrhythmia, electrolyte abnormalities, thyroid dysfunction, dehydration, and cardiac ischemia. Medical Records Attestation: I reviewed the patient's medical records. Home Medications Current Medication List: was personally reviewed by me Laboratory Data Attestation: I reviewed the patient's lab results. Result diagrams: 02/20/19 00:14 02/20/19 00:14 Lab Results 02/20/19 02/20/19 Range/Units 00:14 00:14 WBC 11.89 H (4.8-10.8) K/uL RBC 4.07 L (4.7-6.1) M/uL Hgb 11.7 L (14.0-18.0) g/dL Hct 35.5 L (42-52) % MCV 87.2 (80-100) fL MCH 28.7 (25-34) pg MCHC 33.0 (32-36) g/dL RDW Std Deviation 47.7 H (36.4-46.3) fL RDW Coeff of Marva 15.2 H (11.5-14.5) % Plt Count 352 (130-400) K/uL MPV 9.3 (7.4-10.4) fL Immature Gran % (Auto) 0.2 % Neut % (Auto) 71.0 % Lymph % (Auto) 20.8 % Owen % (Auto) 6.8 % Eos % (Auto) 0.9 % Baso % (Auto) 0.3 % Immature Gran # (Auto) 0.02 (0.00-0.02) K/uL Neut # (Auto) 8.45 H (1.4-6.5) K/uL Lymph # (Auto) 2.47 (1.2-3.4) K/uL Owen # (Auto) 0.81 H (0.11-0.59) K/uL Eos # (Auto) 0.11 (0-0.5) K/uL Baso # (Auto) 0.03 (0-0.2) K/uL Sodium 136 (136-145) mmol/L Potassium 4.0 (3.5-5.1) mmol/L Chloride 103 (98-107) mmol/L Carbon Dioxide 24 (21-32) mmol/L Anion Gap 9.0 (3-11) BUN 24 H (7-18) mg/dl Creatinine 1.14 (0.6-1.4) mg/dl Est Cr Clr Drug Dosing 78.2 ml/min Est GFR ( Amer) 74.6 Est GFR (Non-Af Amer) 64.3 BUN/Creatinine Ratio 21.2 H (10-20) Glucose 126 H (70-99) mg/dl Calcium 9.3 (8.5-10.1) mg/dl Magnesium 1.6 L (1.8-2.4) mg/dl Total Bilirubin 0.5 (0.2-1) mg/dl AST 11 L (15-37) U/L ALT 20 (12-78) U/L Alkaline Phosphatase 102 (45-117) U/L Troponin I < 0.015 (0-0.045) ng/ml Total Protein 8.0 (6.4-8.2) gm/dl Albumin 3.2 L (3.4-5.0) gm/dl Globulin 4.8 H (2.5-4.0) gm/dl Albumin/Globulin Ratio 0.7 L (0.9-2) TSH 10.300 H (0.300-4.500) uIu/ml Free T4 1.17 (0.8-1.6) ng/dl Imaging Data Attestation: I personally reviewed and interpreted this imaging study as follows: My Impression: CHEST X-RAY: Cardiomegaly. Small left-sided pleural effusion. Unchanged from 02/06/2019. ECG Data Attestation: I personally reviewed and interpreted this ECG as follows: Indication: + chest pain and + SOB/dyspnea Rate (beats per minute): 115 Rhythm: + sinus tachycardia ECG ST segments: no ST depression and no ST elevation ECG Findings: no PACs and no PVCs Comparison ECG Date: from (02/06/2019) Change: no significant change Blood Pressure Blood Pressure Findings: Elevated blood pressure Blood Pressure Disposition: further management by hospitalist MDM Narrative The patient is a 73 year old male who presents to the emergency department with complaints of resolved CP and SOB beginning tonight. EMS found the patient in SVT. The patient was hypotensive at that time. They administered IV adenosine- 6 mg. This converted him to a sinus tachycardia which resulted in normal vital signs. The patient's substernal chest pain resolved at that time also. It is unclear why the patient went in to this dysrhythmia. He is currently hemodynamically stable. Given his recent history of events, the patient will require inpatient care to rule out an acute ischemic cardiac event. I discussed the case with the hospitalist and they will evaluate for further management. Impression & Plan SVT (supraventricular tachycardia), Substernal chest pain Discharge Plan Visit Data *Final* Discharge Date/Time: 02/20/19 02:43 Chief Complaint: Chest Pain Stated Complaint: CHEST PAIN ED Provider: Franci Crump Discharge Problem: SVT (supraventricular tachycardia), Substernal chest pain Patient Disposition: Admitted As Inpatient Discharge Instructions Interventions: ED Discharge Assessment Last Done: 02/20/19 02:43 The scribe's documentation has been prepared under my direction and personally reviewed by me in its entirety. I confirm that the note above accurately reflects all work, treatment, procedures, and medical decision making performed by me.
[2019-02-20] MEDS ORDERED: GLUCOSE 40% GEL 15 GM TUBE PO PRN (07:00)
[2019-02-20] MEDS ORDERED: DEXTROSE 50% 50 ML SYRINGE IV PRN (07:00)
[2019-02-20] MEDS ORDERED: GLUCAGON FOR INJ 1 MG VIAL IM PRN (07:00)
[2019-02-20] MEDS ORDERED: CARBOHYDRATES FOR HYPOGLYCEMIA PO PRN (07:00)
[2019-02-20] MEDS ORDERED: GLUCOSE 10 TABS/TUBE PO PRN (07:00)
--- NOTE | 2019-02-20 07:48 | XRay Report ---
XR chest 1V portable HISTORY: Tachycardia. COMPARISON: Chest 02/07/2019. FINDINGS: No pneumothorax. The heart is mildly enlarged. Extensive posterior fusion within the thorac ic and visualized lumbar spine is again noted. Small bilateral pleural effusions and mild congestive change have slightly improved. No new focal lung consolidations. A few linear densities at the left l aparna base favor subsegmental atelectasis. Old, healed bilateral rib fractures are again noted. IMPRESSION: Slight improvement in the mild congestive change and small bilateral pleural effusions. Electronically signed by: Segundo Brown M.D. 02/20/2019 7:47 AM
--- NOTE | 2019-02-20 08:31 | Cardiology Consultation ---
Date of Consultation February 20, 2019 Assessment & Plan (1) SVT (supraventricular tachycardia): Increase metoprolol succinate to 25 mg daily Replace magnesium No arrhythmias overnight (2) CAD (coronary artery disease): Medical management recommended per cath in 1999 Minimally elevated troponin likely due to SVT with underlying ischemic heart disease Continue ASA, statin, beta karley No anginal symptoms this morning. No acute EKG changes Recent echo 02/06/19, demonstrating old scar with moderate LV systolic function. LVEF 30-35%. No need to repeat (3) History of left common carotid artery stent placement: Continue ASA, statin, Brilinta (4) CVA (cerebrovascular accident): Continue ASA, statin, Brilinta Case discussed with Dr. Miranda and hospitalist, Dr. Etienne who is familiar with patient's case from prior admissions. Conservative therapies recommended. Supervising Physician Co-Signing Physician Notes Cardiology Attending Addendum: I personally performed a history and physical on the patient. I agree with the findings, assessment, and plan as outlined by Kiran Branham PA-C with additions as noted below. Subjective: Patient is a somewhat poor historian, unable to describe to me what prompted to present to the emergency room, but reportedly he had acute onset chest tightness and shortness of breath. The rhythm strip obtained by EMS is unavailable, but a narrow complex tachycardia was described that terminated with the administration of adenosine. Patient without intervening arrhythmia. Physical exam: Cardiovascular regular rate, regular rhythm Extremities no edema Neurologic, mildly decreased cognitive status, this is been his recent baseline per his spouse who accompanies him at the bedside at the time of my assessment. Data: Echocardiogram performed 02/06/2019 revealed LAD territory scar with thinning and akinesis of the anteroseptal, anterior, and apical segments, LVEF in the range of 30 to 35% at that time. Impression: Symptomatic paroxysmal supraventricular tachycardia in the setting of underlying ischemic cardiomyopathy Mild troponin elevation, not surprising given the extent of the tachycardia, and his underlying ischemic heart disease/cardiomyopathy. I do not think the mild, flat elevation in his troponin I is correspondence representative of an acute intracoronary thrombotic process. Recommendations: Metoprolol succinate 12.5 mg daily increased to 25 mg daily. Per my discussion with his spouse, he had previously been on chronic clopidogrel therapy for his coronary artery disease and stroke, but when he had his recent work-up for carotid stenting performed at [facility] in [place], he had a blood test that revealed that he was a clopidogrel "nonresponder ". He was therefore transition to ticagrelor at the time of his carotid stent and remains on this at present. Continue current dose of atorvastatin. Continue current dose of furosemide 40 mg daily. Patient is not on an VITOR inhibitor, and given plan to change his metoprolol dose, I think it is most prudent to not start this medication for his underlying cardiomyopathy at present. It appears he has not followed closely with cardiology for quite some time as an outpatient. Would recommend he reestablishes. Recommend future reassessment of his LVEF after he recovers from his stroke process for repeat risk stratification / AICD candidacy. History of Present Illness Reason for Consultation: SVT Requesting Physician: Dr. Wiggins Attending Physician: Dr. Miranda History of Present Illness Patient is a 73 year old male with past history of remote CAD s/p cath in 1998 demonstrating a 50% LAD lesion and a 90% distal LAD lesion, chronic occulsion of the left circumflex and 60% stenosis of the RCA. Med management recommended. He followed with cardiology until about 2003. other history includes b/l carotid stenosis with right occlusion and s/p 2 stents to the left carotid on Brilinta, ASA and statin. Other history includes CVA x2 in September 2018 and most recently in January 2019 treated with TPA. Other history includes type II DM, hypertension, dyslipidemia. He was also recently diagnosed with leukemia. Patient is a poor historian with expressive aphasia from his recent CVA. Most information was obtained through medical records. He was recently discharged from [facility] to home. Apparently yesterday he was sitting eating dinner when he describes sudden onset chest discomfort and palpitations. EMS was summoned and patient was found to be in SVT with a heart rate of approximately 160. He was treated with IV adenosine and successfully converted to normal sinus rhythm. Brought to ER for further evaluation and treatment. Remained in NSR/sinus tachycardia. Magnesium low. TSH elevated. At time of consultation, patient resting in bed comfortably eating his breakfast with the assistance of an aide. He denies current chest pain or shortness of breath. No sense of palpitations or tachypalpitations overnight. No dizziness, syncope or near syncope. No orthopnea, PND. Allergies Allergy/AdvReac Type Severity Reaction Status Date / Time tramadol [From Ultram] Allergy Severe Seizure Verified 02/20/19 00:56 Home Medications Home Medications Medication Instructions Recorded Confirmed Type acetaminophen 975 mg PO TID PRN 02/06/19 02/20/19 History ascorbic acid (vitamin C) 500 mg PO BID 02/06/19 02/20/19 History aspirin 325 mg PO DAILY 02/06/19 02/20/19 History atorvastatin 40 mg PO HS 02/06/19 02/20/19 History docusate sodium 100 mg PO DAILY 02/06/19 02/20/19 History famotidine 20 mg PO BID 02/06/19 02/20/19 History ferrous sulfate 325 mg PO TIDM 02/06/19 02/20/19 History folic acid 1 mg PO DAILY 02/06/19 02/20/19 History furosemide 40 mg PO QAM 02/06/19 02/20/19 History glipizide 10 mg PO BIDM 02/06/19 02/20/19 History levothyroxine 25 mcg PO QAM 02/06/19 02/20/19 History metformin 1,000 mg PO BID 02/06/19 02/20/19 History metoprolol succinate 12.5 mg PO DAILY 02/06/19 02/20/19 History sennosides [senna] 8.6 mg PO DAILY PRN 02/06/19 02/20/19 History ticagrelor 90 mg PO BID 02/06/19 02/20/19 History cefdinir 300 mg PO BID #9 cap 02/09/19 02/20/19 Rx levetiracetam [Keppra] 750 mg PO BID #60 tab 02/09/19 02/20/19 Rx Patient History Social History Preferred Language: [place] Communication Ability: Effective Beliefs That Will Affect Care: None Current Living Situation: Spouse Feels Safe at Home: Yes Safety Concerns: Feels Safe At This Time Smoking Status: Never smoker Hx Alcohol Use: No Hx Substance Use: No Review of Systems Review of Systems: Other (limited due to expressive aphasia. Does answer direct questions appropriately) Physical Exam Constitutional: WD/WN, vitals as above + physical limitations (right sided weakness); no acute distress Neck: normal visual inspection Respiratory: normal respiratory effort, lungs clear to auscultation Cardiovascular: RRR, no murmur, no edema Gastrointestinal (Abdomen): normal bowel sounds, soft, nontender, no hepatosplenomegaly Psychiatric: Orientation: alert and oriented x 3 Results & Data Vital Signs (Past 12 Hours) Vital Signs Temp Pulse Pulse Pulse Resp BP BP 02/20/19 07:30 36.3 C L 88 88 17 127/71 02/20/19 03:14 94 H 02/20/19 03:05 97 H 02/20/19 03:00 36.4 C L 95 H 16 130/75 02/20/19 02:30 98 H 24 135/82 02/20/19 02:00 101 H 19 153/87 H 02/20/19 01:30 105 H 26 H 155/82 H 02/20/19 01:00 110 H 25 H 134/78 02/20/19 00:30 112 H 25 H 112/75 02/20/19 00:04 116 H 24 118/69 02/20/19 00:01 118 H 14 02/20/19 00:00 36.6 C 116 H 22 118/69 Pulse Ox 02/20/19 07:30 97 02/20/19 03:14 02/20/19 03:05 02/20/19 03:00 96 02/20/19 02:30 99 02/20/19 02:00 99 02/20/19 01:30 95 02/20/19 01:00 95 02/20/19 00:30 95 02/20/19 00:04 97 02/20/19 00:01 96 02/20/19 00:00 94 Laboratory Results 02/20/19 02/20/19 02/20/19 Range/Units 07:52 05:37 03:13 WBC (4.8-10.8) K/uL RBC (4.7-6.1) M/uL Hgb (14.0-18.0) g/dL Hct (42-52) % MCV (80-100) fL MCH (25-34) pg MCHC (32-36) g/dL RDW Std Deviation (36.4-46.3) fL RDW Coeff of Marva (11.5-14.5) % Plt Count (130-400) K/uL MPV (7.4-10.4) fL Immature Gran % (Auto) % Neut % (Auto) % Lymph % (Auto) % Cecil % (Auto) % Eos % (Auto) % Baso % (Auto) % Immature Gran # (Auto) (0.00-0.02) K/uL Neut # (Auto) (1.4-6.5) K/uL Lymph # (Auto) (1.2-3.4) K/uL Cecil # (Auto) (0.11-0.59) K/uL Eos # (Auto) (0-0.5) K/uL Baso # (Auto) (0-0.2) K/uL Sodium (136-145) mmol/L Potassium (3.5-5.1) mmol/L Chloride (98-107) mmol/L Carbon Dioxide (21-32) mmol/L Anion Gap (3-11) BUN (7-18) mg/dl Creatinine (0.6-1.4) mg/dl Est Cr Clr Drug Dosing ml/min Est GFR ( Amer) Est GFR (Non-Af Amer) BUN/Creatinine Ratio (10-20) Glucose (70-99) mg/dl POC Glucose 120 H (70-99) Calcium (8.5-10.1) mg/dl Magnesium (1.8-2.4) mg/dl Total Bilirubin (0.2-1) mg/dl AST (15-37) U/L ALT (12-78) U/L Alkaline Phosphatase (45-117) U/L Troponin I 0.323 H* (0-0.045) ng/ml Total Protein (6.4-8.2) gm/dl Albumin (3.4-5.0) gm/dl Globulin (2.5-4.0) gm/dl Albumin/Globulin Ratio (0.9-2) TSH (0.300-4.500) uIu/ml Free T4 (0.8-1.6) ng/dl Nasal Screen MRSA (PCR) Negative (Negative) 02/20/19 02/20/19 Range/Units 00:14 00:14 WBC 11.89 H (4.8-10.8) K/uL RBC 4.07 L (4.7-6.1) M/uL Hgb 11.7 L (14.0-18.0) g/dL Hct 35.5 L (42-52) % MCV 87.2 (80-100) fL MCH 28.7 (25-34) pg MCHC 33.0 (32-36) g/dL RDW Std Deviation 47.7 H (36.4-46.3) fL RDW Coeff of Marva 15.2 H (11.5-14.5) % Plt Count 352 (130-400) K/uL MPV 9.3 (7.4-10.4) fL Immature Gran % (Auto) 0.2 % Neut % (Auto) 71.0 % Lymph % (Auto) 20.8 % Cecil % (Auto) 6.8 % Eos % (Auto) 0.9 % Baso % (Auto) 0.3 % Immature Gran # (Auto) 0.02 (0.00-0.02) K/uL Neut # (Auto) 8.45 H (1.4-6.5) K/uL Lymph # (Auto) 2.47 (1.2-3.4) K/uL Cecil # (Auto) 0.81 H (0.11-0.59) K/uL Eos # (Auto) 0.11 (0-0.5) K/uL Baso # (Auto) 0.03 (0-0.2) K/uL Sodium 136 (136-145) mmol/L Potassium 4.0 (3.5-5.1) mmol/L Chloride 103 (98-107) mmol/L Carbon Dioxide 24 (21-32) mmol/L Anion Gap 9.0 (3-11) BUN 24 H (7-18) mg/dl Creatinine 1.14 (0.6-1.4) mg/dl Est Cr Clr Drug Dosing 78.2 ml/min Est GFR ( Amer) 74.6 Est GFR (Non-Af Amer) 64.3 BUN/Creatinine Ratio 21.2 H (10-20) Glucose 126 H (70-99) mg/dl POC Glucose (70-99) Calcium 9.3 (8.5-10.1) mg/dl Magnesium 1.6 L (1.8-2.4) mg/dl Total Bilirubin 0.5 (0.2-1) mg/dl AST 11 L (15-37) U/L ALT 20 (12-78) U/L Alkaline Phosphatase 102 (45-117) U/L Troponin I < 0.015 (0-0.045) ng/ml Total Protein 8.0 (6.4-8.2) gm/dl Albumin 3.2 L (3.4-5.0) gm/dl Globulin 4.8 H (2.5-4.0) gm/dl Albumin/Globulin Ratio 0.7 L (0.9-2) TSH 10.300 H (0.300-4.500) uIu/ml Free T4 1.17 (0.8-1.6) ng/dl Nasal Screen MRSA (PCR) (Negative) Diagnostic Findings Telemetry reviewed - NSR/sinus tachycardia with HR's ranging 90-110 bpm. No recurrent arrhythmias EKG on arrival to ER demonstrated: sinus tachycardia at 115 bpm EKG reviewed from EMS - Likely SVT at 157 bpm 2D echocardiogram report reviewed dated 02/08/2019: Normal LV chamber size. Severe hypokinesis to akinesis of the anterior, anteroseptal and apical watts with associated wall thinning of involved segments. Otherwise normal wall motion. Grade 1 diastolic dysfunction. The right ventricular cavity size is normal. Mild MR. The interatrial septum is intact with no evidence of atrial septal defect. Injection of contrast documented no intra-atrial shunt. Medications Administered Current Inpatient Medications Acetaminophen (Tylenol) 650 mg PO Q4H PRN PRN Reason: Pain or Fever Stop: 03/22/19 03:10 Ascorbic Acid (Vitamin C) 500 mg PO BID [facility]AVAL Stop: 03/22/19 08:59 Last Admin: 02/20/19 08:57 Dose: 500 mg Documented by: Aspirin (Ecotrin) 325 mg PO DAILY DHAVAL Stop: 03/22/19 08:59 Last Admin: 02/20/19 08:56 Dose: 325 mg Documented by: Atorvastatin Calcium (Lipitor) 40 mg PO HS [facility] Stop: 03/22/19 20:59 Dextrose (Dextrose 50%) 25 - 50 ml IV UD PRN; Protocol PRN Reason: Hypoglycemia Protocol Stop: 03/22/19 06:59 Docusate Sodium (Colace) 100 mg PO DAILY [facility]AVAL Stop: 03/22/19 08:59 Last Admin: 02/20/19 08:56 Dose: 100 mg Documented by: Famotidine (Pepcid) 20 mg PO BID [facility]AVAL Stop: 03/22/19 08:59 Last Admin: 02/20/19 08:57 Dose: 20 mg Documented by: Ferrous Sulfate (Feosol) 325 mg PO TIDM [facility] Stop: 03/22/19 07:59 Last Admin: 02/20/19 08:57 Dose: 325 mg Documented by: Folic Acid (Folvite) 1 mg PO DAILY DHAVAL Stop: 03/22/19 08:59 Last Admin: 02/20/19 08:58 Dose: 1 mg Documented by: Furosemide (Lasix) 40 mg PO QAM [facility] Stop: 03/22/19 08:59 Last Admin: 02/20/19 08:56 Dose: 40 mg Documented by: Glucagon (Glucagen) 1 mg IM UD PRN; Protocol PRN Reason: Hypoglycemia Protocol Stop: 03/22/19 06:59 Glucose (Glucose 40%) 15 - 30 gm PO UD PRN; Protocol PRN Reason: Hypoglycemia Protocol Stop: 03/22/19 06:59 Glucose (Dex4 Glucose) 4 - 8 tabs PO UD PRN; Protocol PRN Reason: Hypoglycemia Protocol Stop: 03/22/19 06:59 Magnesium Sulfate/Dextrose (Magnesium Sulfate / D5w) 1 gm in 100 mls @ 100 mls/hr IV Q1H [facility] Stop: 02/20/19 11:29 Insulin Aspart (Novolog Flexpen) 0 units SC ACHS [facility] Stop: 03/22/19 07:29 Last Admin: 02/20/19 08:52 Dose: Not Given Documented by: Levetiracetam (Keppra) 750 mg PO BID [facility] Stop: 03/22/19 08:59 Last Admin: 02/20/19 08:57 Dose: 750 mg Documented by: Levothyroxine Sodium (Synthroid) 25 mcg PO DAILYBB [facility] Stop: 03/22/19 06:29 Last Admin: 02/20/19 05:48 Dose: 25 mcg Documented by: Metoprolol Succinate (Toprol Xl) 12.5 mg PO ONE ONE Stop: 02/20/19 09:51 Metoprolol Succinate (Toprol Xl) 25 mg PO QAM [facility] Stop: 03/23/19 08:59 Metoprolol Tartrate (Lopressor) 2.5 mg IV Q4 PRN PRN Reason: Tachycardia Stop: 03/22/19 03:10 Miscellaneous (Carbohydrates For Hypoglycemia) 15 - 30 gm PO UD PRN PRN Reason: Hypoglycemia Treatment Stop: 03/22/19 06:59 Nitroglycerin (Nitrostat) 0.4 mg SL UD PRN PRN Reason: Chest Pain Stop: 03/22/19 03:10 Ondansetron HCl (Zofran) 4 mg IV Q6H PRN PRN Reason: Nausea Stop: 03/22/19 03:10 Sennosides (Senokot) 8.6 mg PO DAILY PRN PRN Reason: Constipation Stop: 03/22/19 03:10 Ticagrelor (Brilinta) 90 mg PO BID DHAVAL Stop: 03/22/19 08:59 Last Admin: 02/20/19 08:56 Dose: 90 mg Documented by: (1) CVA (cerebrovascular accident) CVA mechanism: unspecified Qualified Code(s): I63.9 - Cerebral infarction, unspecified
[2019-02-20] MEDS: INSULIN ASPART 100 UNITS/ML 3 ML PEN SC SCH ×4 (08:52→21:40)
[2019-02-20] MEDS: ASPIRIN 325 MG ECTAB PO SCH (08:56)
[2019-02-20] MEDS: FUROSEMIDE 40 MG TAB PO SCH (08:56)
[2019-02-20] MEDS: TICAGRELOR 90 MG TAB PO SCH ×2 (08:56→21:37)
[2019-02-20] MEDS: DOCUSATE SODIUM 100 MG CAP PO SCH (08:56)
[2019-02-20] MEDS: ASCORBIC ACID 500 MG TAB PO SCH ×2 (08:57→21:39)
[2019-02-20] MEDS: FERROUS SULFATE 325 MG TAB PO SCH ×3 (08:57→17:38)
[2019-02-20] MEDS: FAMOTIDINE 20 MG TAB PO SCH ×2 (08:57→21:39)
[2019-02-20] MEDS: levETIRAcetam 250 MG TAB PO SCH ×2 (08:57→21:38)
[2019-02-20] MEDS: FOLIC ACID 1 MG TAB PO SCH (08:58)
[2019-02-20] MEDS ORDERED: METOPROLOL SUCC 25MG EXT REL TAB PO SCH (09:00)
[2019-02-20] MEDS: MAGNESIUM SULFATE / D5W 1 GM/100 ML BAG IV SCH ×2 (10:20→11:17)
[2019-02-20] MEDS ORDERED: METOPROLOL SUCC 25MG EXT REL TAB PO ONE (10:30)
--- NOTE | 2019-02-20 15:15 | Hospitalist Progress Note ---
Date of Service February 20, 2019 Assessment & Plan (1) SVT (supraventricular tachycardia): Admitted with supraventricular tachycardia with heart rate in 170s Sent from rehab/[facility] with feeling of chest pain shortness of breath, palpitation and dizzy spell Patient was given IV adenosine which converted to sinus rhythm Had an uneventful night, this morning asymptomatic no dizzy spell or lightheadedness heart rate controlled Cardiology consulted, appreciate input Beta-karley dose adjusted Toprol-XL dose increased to 25 mg by mouth daily(was on 12.5 mg daily) Recent echo 02/06/2019 demonstrates old scar with moderate LV systolic function, left ventricular ejection fraction 30-35% CORONARY ARTERY DISEASE On medical management Transient episode of chest heaviness secondary to SVT Completely resolved after heart rate is sinus and in rate controlled with increment of beta-karley Transient elevation of troponin possible secondary to demand ischemia/ SVT no evidence of acute coronary event, Cardiology following, Commence continue cardiac meds aspirin Brilinta statin beta-karley RECENT CVA Status post CVA September this year leading to right-sided weakness due to left frontoparietal infarct-was treated at [facility] in [place] Recent admission to [facility] on 02/06/2019 stroke in left parieto-occipital region was treated in ICU status post TPA Was discharged to [facility] Patient will be continued with Brilinta/ statin SEIZURE DISORDER : Admitted with seizure episode in last admission to [facility] Continued on Keppra No seizure activity since discharge CAROTID ARTERY OCCLUSION Status post stent on left carotid artery by Interventional and Vascular Neurology Dr Bobby House at at [facility]( # [phone]) Recent carotid ultrasound on 01/2019 showed chronic 100% occlusion on right carotid artery On Brilinta and statin Patient will follow up at [facility] CODE STATUS : FULL CODE DISPOSITION: Ordered PT OT Plan to return back to [facility] possible tomorrow if heart rate remained stable Subjective awake and alert says feels fine No complaint of palpitation chest pain, shortness of breath or dyspnea on exertion Heart rate remained stable on monitor No recurrence of SVT after increasing the beta-karley dose Physical Exam 2 Constitutional: WD/WN, vitals as above no acute distress Eyes: PERRL, conjunctivae normal, anicteric sclerae ENMT: external ear and nose normal, oropharynx normal Neck: trachea midline, no thyromegaly Respiratory: normal respiratory effort, lungs clear to auscultation Cardiovascular: RRR, no murmur, no edema Gastrointestinal (Abdomen): Inspection/Auscultation: normal bowel sounds Percussion/Palpation: abdomen soft; abdomen nontender Musculoskeletal: no cyanosis or clubbing, extremities motor strength 5/5 (Chronic right-sided weakness from prior CVA) Skin: no rashes, warm and dry Neurologic: PERRL, EOMI, accommodation nl, no face palsy, no dysarthria + focal motor deficit (Right-sided weakness from prior CVA) Psychiatric: A+Ox3, euthymic affect Results & Data Vital Signs (Past 12 Hours) Vital Signs Temp Pulse Pulse Pulse Resp BP Pulse Ox 02/20/19 12:03 36.9 C 85 18 122/70 97 02/20/19 09:00 75 02/20/19 07:30 36.3 C L 88 88 17 127/71 97
[2019-02-20] MEDS ORDERED: ATORVASTATIN 40 MG TAB PO SCH (21:00)
[2019-02-21] MEDS: LEVOTHYROXINE SODIUM 25 MCG TABLET PO SCH (05:45)
[2019-02-21 06:14] LABS: Est GFR (African American) 82.4; Est GFR (Non-African American) 71.1
[2019-02-21 06:15] LABS: BUN Creatinine Ratio 20.3 (10-20); Calcium 9.4 mg/dl (8.5-10.1); Creatinine Clr Calc Pharmacy 83.7 ml/min; Magnesium 1.9 mg/dl (1.8-2.4)
[2019-02-21] MEDS: ASPIRIN 325 MG ECTAB PO SCH (08:17)
[2019-02-21] MEDS: ASCORBIC ACID 500 MG TAB PO SCH (08:17)
[2019-02-21] MEDS: DOCUSATE SODIUM 100 MG CAP PO SCH (08:17)
[2019-02-21] MEDS: FAMOTIDINE 20 MG TAB PO SCH (08:18)
[2019-02-21] MEDS: FUROSEMIDE 40 MG TAB PO SCH (08:18)
[2019-02-21] MEDS: FOLIC ACID 1 MG TAB PO SCH (08:18)
[2019-02-21] MEDS: levETIRAcetam 250 MG TAB PO SCH (08:19)
[2019-02-21] MEDS: FERROUS SULFATE 325 MG TAB PO SCH ×2 (08:19→11:51)
[2019-02-21] MEDS: TICAGRELOR 90 MG TAB PO SCH (08:20)
[2019-02-21] MEDS: INSULIN ASPART 100 UNITS/ML 3 ML PEN SC SCH ×2 (08:22→11:51)
[2019-02-21] MEDS ORDERED: METOPROLOL SUCC 25MG EXT REL TAB PO SCH (09:00)
--- NOTE | 2019-02-21 09:54 | Cardiology Progress Note ---
Date of Service February 21, 2019 Assessment & Plan (1) SVT (supraventricular tachycardia): Metoprolol succinate increased to 25 mg daily. No recurrent arrhythmias. (2) Ischemic cardiomyopathy: LVEF 30-35% per echo in January 2019. No prior echo available. Presumed ischemic in nature given history of CAD per remote cath in 1998 demonstrating a 50% LAD lesion and a 90% distal LAD lesion, chronic occulsion of the left circumflex and 60% stenosis of the RCA. Continue ASA, metoprolol, statin Add low dose lisinopril 2.5 mg daily (3) Hypertension: Continue metoprolol with addition of low dose lisinopril (4) History of left common carotid artery stent placement: Stent placed on 01/31/19 at [facility]. Continue ASA, statin, Brilinta Per , patient was deemed a non responder to Plavix. Brilinta was recommended for at least 3 months post op (5) CVA (cerebrovascular accident): Continue ASA, statin, Brilinta Case discussed with Dr. Miranda. Stable cardiac symptoms for discharge today back to rehab. Will need cardiology follow up in about 1 month. Will need future echo to re- evaluate LVEF and candidacy for AICD therapy after appropriate medical therapies. Will request records from [employer] Dr. Kaylynn Oneal at [facility] Cardiology. Supervising Physician Co-Signing Physician Notes Cardiology attending addendum: I personally performed a history and physical exam on the patient. Mental status is much improved today. Telemetry reveals no recurrence of tachycardia. Exam: Cardiovascular regular rhythm, extremities no edema Impression and plan: As outlined in Kiran Branham's note. Metoprolol succinate dose has been increased from 2.5 mg to 25 mg. Added low- dose lisinopril given newly recognized LV systolic dysfunction on echocardiogram last month, with age undetermined LAD territory scar. Stable for transfer to [facility]. Case discussed with Dr Alexandra who will be following patient there. Subjective Patient more alert this morning. Answering questions appropriately. Anxious to return to rehab. Voices no complaints. Denies recurrent palpitations or tachypalpitations. No chest pain or unusual shortness of breath. No dizziness, syncope or near syncope. Tolerating recent adjustment to metoprolol. Blood pressure stable. Review of Systems Review of Systems: All systems reviewed & are unremarkable except as noted in HPI & below Physical Exam Constitutional: WD/WN, vitals as above average body habitus; no acute distress Neck: normal visual inspection Respiratory: normal respiratory effort, lungs clear to auscultation Cardiovascular: RRR, no murmur, no edema Vessels: no JVD Gastrointestinal (Abdomen): normal bowel sounds, soft, nontender, no hepatosplenomegaly Psychiatric: A+Ox3, euthymic affect Results & Data Vital Signs (Past 12 Hours) Vital Signs Temp Pulse Pulse Resp BP Pulse Ox 02/21/19 07:53 36.8 C 78 18 124/69 98 02/21/19 04:01 36.5 C 88 18 122/73 96 02/21/19 01:38 90 02/20/19 23:32 36.8 C 93 H 18 153/78 H 98 Laboratory Results 02/21/19 02/21/19 02/20/19 Range/Units 07:36 05:17 20:25 Sodium 135 L (136-145) mmol/L Potassium 4.0 (3.5-5.1) mmol/L Chloride 102 (98-107) mmol/L Carbon Dioxide 25 (21-32) mmol/L Anion Gap 8.0 (3-11) BUN 21 H (7-18) mg/dl Creatinine 1.05 (0.6-1.4) mg/dl Est Cr Clr Drug Dosing 83.7 ml/min Est GFR ( Amer) 82.4 Est GFR (Non-Af Amer) 71.1 BUN/Creatinine Ratio 20.3 H (10-20) Glucose 130 H (70-99) mg/dl POC Glucose 148 H 120 H (70-99) Calcium 9.4 (8.5-10.1) mg/dl Magnesium 1.9 (1.8-2.4) mg/dl Troponin I (0-0.045) ng/ml 02/20/19 02/20/19 02/20/19 Range/Units 16:50 16:33 11:34 Sodium (136-145) mmol/L Potassium (3.5-5.1) mmol/L Chloride (98-107) mmol/L Carbon Dioxide (21-32) mmol/L Anion Gap (3-11) BUN (7-18) mg/dl Creatinine (0.6-1.4) mg/dl Est Cr Clr Drug Dosing ml/min Est GFR ( Amer) Est GFR (Non-Af Amer) BUN/Creatinine Ratio (10-20) Glucose (70-99) mg/dl POC Glucose 103 H 167 H (70-99) Calcium (8.5-10.1) mg/dl Magnesium (1.8-2.4) mg/dl Troponin I 0.199 H* (0-0.045) ng/ml 02/20/19 Range/Units 11:09 Sodium (136-145) mmol/L Potassium (3.5-5.1) mmol/L Chloride (98-107) mmol/L Carbon Dioxide (21-32) mmol/L Anion Gap (3-11) BUN (7-18) mg/dl Creatinine (0.6-1.4) mg/dl Est Cr Clr Drug Dosing ml/min Est GFR ( Amer) Est GFR (Non-Af Amer) BUN/Creatinine Ratio (10-20) Glucose (70-99) mg/dl POC Glucose (70-99) Calcium (8.5-10.1) mg/dl Magnesium (1.8-2.4) mg/dl Troponin I 0.277 H* (0-0.045) ng/ml Diagnostic Findings Telemetry reviewed: Normal sinus rhythm with heart rates ranging 80 to 100 bpm, no arrhythmias. Medications Administered Current Inpatient Medications Acetaminophen (Tylenol) 650 mg PO Q4H PRN PRN Reason: Pain or Fever Stop: 03/22/19 03:10 Ascorbic Acid (Vitamin C) 500 mg PO BID [facility] Stop: 03/22/19 08:59 Last Admin: 02/21/19 08:17 Dose: 500 mg Documented by: Aspirin (Ecotrin) 325 mg PO DAILY [facility] Stop: 03/22/19 08:59 Last Admin: 02/21/19 08:17 Dose: 325 mg Documented by: Atorvastatin Calcium (Lipitor) 40 mg PO HS [facility] Stop: 03/22/19 20:59 Last Admin: 02/20/19 21:38 Dose: 40 mg Documented by: Dextrose (Dextrose 50%) 25 - 50 ml IV UD PRN; Protocol PRN Reason: Hypoglycemia Protocol Stop: 03/22/19 06:59 Docusate Sodium (Colace) 100 mg PO DAILY [facility] Stop: 03/22/19 08:59 Last Admin: 12/03/19 08:17 Dose: 100 mg Documented by: Famotidine (Pepcid) 20 mg PO BID [facility] Stop: 03/22/19 08:59 Last Admin: 02/21/19 08:18 Dose: 20 mg Documented by: Ferrous Sulfate (Feosol) 325 mg PO TIDM [facility] Stop: 03/22/19 07:59 Last Admin: 02/21/19 08:19 Dose: 325 mg Documented by: Folic Acid (Folvite) 1 mg PO DAILY [facility] Stop: 03/22/19 08:59 Last Admin: 02/21/19 08:18 Dose: 1 mg Documented by: Furosemide (Lasix) 40 mg PO QAM [facility] Stop: 03/22/19 08:59 Last Admin: 02/21/19 08:18 Dose: 40 mg Documented by: Glucagon (Glucagen) 1 mg IM UD PRN; Protocol PRN Reason: Hypoglycemia Protocol Stop: 03/22/19 06:59 Glucose (Glucose 40%) 15 - 30 gm PO UD PRN; Protocol PRN Reason: Hypoglycemia Protocol Stop: 03/22/19 06:59 Glucose (Dex4 Glucose) 4 - 8 tabs PO UD PRN; Protocol PRN Reason: Hypoglycemia Protocol Stop: 03/22/19 06:59 Insulin Aspart (Novolog Flexpen) 0 units SC ACHS [facility] Stop: 03/22/19 07:29 Last Admin: 02/21/19 08:22 Dose: 5 units Documented by: Levetiracetam (Keppra) 750 mg PO BID [facility] Stop: 03/22/19 08:59 Last Admin: 02/21/19 08:19 Dose: 750 mg Documented by: Levothyroxine Sodium (Synthroid) 25 mcg PO DAILYBB [facility] Stop: 03/22/19 06:29 Last Admin: 02/21/19 05:45 Dose: 25 mcg Documented by: Metoprolol Succinate (Toprol Xl) 25 mg PO QAM [facility] Stop: 03/23/19 08:59 Last Admin: 02/21/19 08:17 Dose: 25 mg Documented by: Metoprolol Tartrate (Lopressor) 2.5 mg IV Q4 PRN PRN Reason: Tachycardia Stop: 03/22/19 03:10 Miscellaneous (Carbohydrates For Hypoglycemia) 15 - 30 gm PO UD PRN PRN Reason: Hypoglycemia Treatment Stop: 03/22/19 06:59 Nitroglycerin (Nitrostat) 0.4 mg SL UD PRN PRN Reason: Chest Pain Stop: 03/22/19 03:10 Ondansetron HCl (Zofran) 4 mg IV Q6H PRN PRN Reason: Nausea Stop: 03/22/19 03:10 Sennosides (Senokot) 8.6 mg PO DAILY PRN PRN Reason: Constipation Stop: 03/22/19 03:10 Last Admin: 02/20/19 15:28 Dose: 8.6 mg Documented by: Ticagrelor (Brilinta) 90 mg PO BID [facility] Stop: 03/22/19 08:59 Last Admin: 02/21/19 08:20 Dose: 90 mg Documented by: (1) CVA (cerebrovascular accident) CVA mechanism: unspecified Qualified Code(s): I63.9 - Cerebral infarction, unspecified
--- NOTE | 2019-02-21 13:44 | Discharge Summary ---
Date of Service February 21, 2019 Admission HPI Per Admitting Provider DICTATED BY: Geoffrey Wiggins MD DATE OF ADMISSION: 02/20/2019 CHIEF COMPLAINT: Chest pain, shortness of breath, and supraventricular tachycardia. HISTORY OF PRESENT ILLNESS: This is a 73-year-old male with past medical history significant for type 2 diabetes, history of coronary artery disease, hypertension, obesity, who recently in September had an episode of CVA with right-sided weakness. He was recently admitted on 02/06/2019 with seizures and CVA. He was treated with Keppra and was status post TPA at that time and MRI findings showed subacute infarct in the left parieto-occipital region and also old left frontoparietal infarct and chronic small vessel ischemic changes with old lacunar infarcts and also he has old chronic occlusion of the right carotid artery. The patient did okay and discharged to [facility]. Today while he was at the dinner table, he was feeling chest pain and shortness of breath and EMS was called and he was found to be in SVT and heart rate in 170s and status post IV adenosine, which converted him to sinus rhythm. The patient is currently resting comfortably and hemodynamically stable. Heart rate is like in the 100 range. The patient is sleepy. Family in the room. The patient currently denies any chest pain, no shortness of breath, no headache. 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 Currently ambulating with a walker without any support. His appetite is not that great, but eating regular diet and swallowing okay. Denies any headache, no dizziness, no earache, no sore throat, no cough, no recent fever or chills. No nausea, no abdominal pain. He says he is constipated. His stools are always black because of iron pills. Normal bladder movements, no burning micturition, no swelling in the legs, no rash. Principal Diagnosis SUPRAVENTRICULAR TACHYCARDIA Discharge Exam Constitutional WD/WN, vitals as above no acute distress Eyes PERRL, conjunctivae normal, anicteric sclerae ENMT external ear and nose normal, oropharynx normal Neck trachea midline, no thyromegaly Respiratory normal respiratory effort, lungs clear to auscultation Cardiovascular RRR, no murmur, no edema Gastrointestinal (Abdomen) Inspection/Auscultation: normal bowel sounds Percussion/Palpation: abdomen soft; abdomen nontender Musculoskeletal no cyanosis or clubbing, extremities motor strength 5/5 (Chronic right-sided weakness from prior CVA) Skin no rashes, warm and dry Neurologic PERRL, EOMI, accommodation nl, no face palsy, no dysarthria + focal motor deficit (Right-sided weakness from prior CVA) Psychiatric A+Ox3, euthymic affect Discharge Data Allergies Allergy/AdvReac Type Severity Reaction Status Date / Time tramadol [From Ultram] Allergy Severe Seizure Verified 02/20/19 00:56 Consultations 02/20/19 01:51 ED Decision to Admit Stat 02/20/19 03:11 Consult Case Management - Discharge Planning Routine 02/20/19 08:00 Consult Cardiology Routine 02/21/19 10:02 Consult Health Information Management Routine Hospital Course (1) SVT (supraventricular tachycardia): Admitted with supraventricular tachycardia with heart rate in 170s Sent from rehab/[facility] with feeling of chest pain shortness of breath, palpitation and dizzy spell Patient was given IV adenosine which converted to sinus rhythm Had an uneventful night, this morning asymptomatic no dizzy spell or lightheadedness heart rate controlled Cardiology consulted, appreciate input Beta-karley dose adjusted Toprol-XL dose increased to 25 mg by mouth daily(was on 12.5 mg daily) Recent echo 02/06/2019 demonstrates old scar with moderate LV systolic function, left ventricular ejection fraction 30-35% added Lisinopril 2.5 mg daily will need follow up with his Cardiology for evaluation of possible AICD CORONARY ARTERY DISEASE On medical management Transient episode of chest heaviness secondary to SVT Completely resolved after heart rate is sinus and in rate controlled with increment of beta-karley Transient elevation of troponin possible secondary to demand ischemia/ SVT no evidence of acute coronary event, Cardiology following, Commence continue cardiac meds aspirin Brilinta statin beta-karley RECENT CVA Status post CVA September this year leading to right-sided weakness due to left frontoparietal infarct-was treated at [facility] in [place] Recent admission to [facility] on 02/06/2019 stroke in left parieto-occipital region was treated in ICU status post TPA Was discharged to [facility] Patient will be continued with Brilinta/ statin SEIZURE DISORDER : Admitted with seizure episode in last admission to [facility] Continued on Keppra No seizure activity since discharge CAROTID ARTERY OCCLUSION Status post stent on left carotid artery by Interventional and Vascular Neurology Dr Bobby House at at [facility]( # ) Recent carotid ultrasound on 01/2019 showed chronic 100% occlusion on right carotid artery On Brilinta and statin Patient will follow up at [facility] CODE STATUS : FULL CODE DISPOSITION: stable to be returned back to [facility] for continued Rehab Total Time Total Time Spent Total Time Spent (In Minutes): Approx 35 mins Total Time Includes: Discharge Planning and Medication Reconciliation Discharge Plan Discharge Items Patient Disposition: Transfer Inpatient Rehab Fac Reason For Visit: SVT, CHEST PAIN Discharge Diagnosis: Supraventricular tachycardia/ Activity: As commented below Activity Comment: Continue physical therapy occupational therapy at [facility] Non-emergency contact: Primary Care Provider Call non-emergency contact if: you have any medication questions Follow-up/Referrals: PCP,NO [Primary Care Provider] - Diet: Heart Healthy Addtl Attending Provider Instructions: Continue physical therapy, Occupational Therapy Medication change: 1. Toprol-XL dose increased from 12.5 to 25 mg daily-for heart rate and blood pressure control 2. Lisinopril 2.5 mg daily: For high blood pressure Will need repeat thyroid function test check in 6-4 weeks Will need cardiology follow up in about [address] Kaylynn Oneal at [facility] Cardiology. Will need future echo to re-evaluate LVEF and candidacy for AICD therapy after appropriate medical therapies. Pending Studies at Discharge: Yes Studies:: TSH check in 4-6 weeks Stand-Alone Forms: Call Back Authorization, [facility] Skilled Items Patient informed of condition?: Yes DNR: No Discharge Level of Care: Acute rehab Communicable Disease: No Discharge Prognosis: Stable Lines: None Urinary Catheter: No Medications and DC Order Prescriptions: New lisinopril 2.5 mg Tablet 2.5 mg PO QAM 30 Days Qty: 30 RF: 0 Continued furosemide 40 mg tablet 40 mg PO QAM RF: 0 atorvastatin 40 mg tablet 40 mg PO HS RF: 0 glipizide 10 mg Tablet 10 mg PO BIDM RF: 0 levothyroxine 25 mcg tablet 25 mcg PO QAM RF: 0 ferrous sulfate 325 mg (65 mg iron) tablet 325 mg PO TIDM RF: 0 metformin 1,000 mg tablet 1,000 mg PO BID RF: 0 folic acid 1 mg Tablet 1 mg PO DAILY RF: 0 sennosides [senna] 8.6 mg Tablet 8.6 mg PO DAILY PRN (Reason: Constipation) RF: 0 aspirin 325 mg Tablet 325 mg PO DAILY RF: 0 ascorbic acid (vitamin C) 500 mg Tablet 500 mg PO BID RF: 0 ticagrelor 90 mg Tablet 90 mg PO BID RF: 0 acetaminophen 325 mg Tablet 975 mg PO TID PRN (Reason: mild pain 1-3 scale) RF: 0 famotidine 20 mg Tablet 20 mg PO BID RF: 0 docusate sodium 100 mg Tablet 100 mg PO DAILY RF: 0 levetiracetam [Keppra] 250 mg Tablet 750 mg PO BID Qty: 60 RF: 1 Changed metoprolol succinate 25 mg tablet extended release 24 hr 25 mg PO DAILY Qty: 0 RF: 0 Discontinued cefdinir 300 mg Capsule 300 mg PO BID Qty: 9 RF: 0 Discharge Orders: Discharge Order (Routine); Ordered 02/21/19 Ordered By: Dona Etienne Admission Data Admit Date/Time: 02/20/19 02:17 Attending Provider: Dona Etienne Admit Provider: Geoffrey Wiggins Primary Care Provider: PCP,NO Other Providers: Geoffrey Wiggins ; Adrien Miranda ; [facility] Other Interventions: Discharge Summary Assessment (RN) Last Done: 02/21/19 10:53
--- NOTE | 2019-02-21 13:50 | Internal Medicine Consult Note ---
Date of Consultation February 21, 2019 Assessment & Plan (1) Encounter for rehabilitation evaluation: He will be put in our higher risk group. Weight and follow up lytes to be obtained (given the VITOR-I start) Pulmonary toilet and continued cardiac reevaluation. I plan to evaluate him tomorrow at [facility]. History of Present Illness Reason for Consultation: High Risk Monitor Group at [facility] Attending Physician: Dona Etienne MD History of Present Illness He developed SVT and has required acute care monitoring. He is scheduled to return to [facility] for additional acute rehab care. He will be closely monitored for additional cardiopulmonary changes while he is involved in the therapies at [facility]. Today he is feeling better. I spoke with cardiology regarding his care moving foreward. Allergies Allergy/AdvReac Type Severity Reaction Status Date / Time tramadol [From [facility]] Allergy Severe Seizure Verified 02/20/19 00:56 Home Medications Home Medications Medication Instructions Recorded Confirmed Type acetaminophen 975 mg PO TID PRN 02/06/19 02/20/19 History ascorbic acid (vitamin C) 500 mg PO BID 02/06/19 02/20/19 History aspirin 325 mg PO DAILY 02/06/19 02/20/19 History atorvastatin 40 mg PO HS 02/06/19 02/20/19 History docusate sodium 100 mg PO DAILY 02/06/19 02/20/19 History famotidine 20 mg PO BID 02/06/19 02/20/19 History ferrous sulfate 325 mg PO TIDM 02/06/19 02/20/19 History folic acid 1 mg PO DAILY 02/06/19 02/20/19 History furosemide 40 mg PO QAM 02/06/19 02/20/19 History glipizide 10 mg PO BIDM 02/06/19 02/20/19 History levothyroxine 25 mcg PO QAM 02/06/19 02/20/19 History metformin 1,000 mg PO BID 02/06/19 02/20/19 History sennosides [senna] 8.6 mg PO DAILY PRN 02/06/19 02/20/19 History ticagrelor 90 mg PO BID 02/06/19 02/20/19 History levetiracetam [Keppra] 750 mg PO BID #60 tab 02/09/19 02/20/19 Rx lisinopril 2.5 mg PO QAM 30 Days #30 tab 02/21/19 Rx metoprolol succinate 25 mg PO DAILY #0 tab 02/21/19 02/20/19 Rx Patient History Social History Preferred Language: Guamanian Communication Ability: Effective Beliefs That Will Affect Care: None Current Living Situation: Spouse Feels Safe at Home: Yes Safety Concerns: Feels Safe At This Time Smoking Status: Never smoker Hx Alcohol Use: No Hx Substance Use: No Review of Systems Review of Systems: No targets that would change the discharge trajectory to [facility] Physical Exam Physical Exam: No acute distress HEENT--no acute changes. Cardio--rate and volume status ok--LE edema noted Respiratory--comfortable-- GI--no distress Musculo--no acute target Neuro--no focal changes Psych--approaching baseline Results & Data Vital Signs (Past 12 Hours) Vital Signs Temp Pulse Resp BP Pulse Ox 02/21/19 11:48 36.8 C 88 18 131/68 96 02/21/19 10:53 36.8 C 78 18 124/69 98 02/21/19 07:53 36.8 C 78 18 124/69 98 02/21/19 04:01 36.5 C 88 18 122/73 96
== END 2019-02-21 14:16 ==
LOC: ED 23:51 → 2S 23:51

== ENCOUNTER 2019-08-12 19:22 | Inpatient (IN) ==
[2019-08-12 20:03] LABS: Basophils # (auto) 0.02 K/uL (0-0.2); Basophils % (auto) 0.2 %; Eosinophils # (auto) 0.12 K/uL (0-0.5); Eosinophils % (auto) 1.3 %; Hematocrit (blood only) 35.4 % (42-52); Hemoglobin 11.5 g/dL (14.0-18.0); Immature Granulocytes # (auto) 0.04 K/uL (0.00-0.02); Immature Granulocytes % (auto) 0.4 %; Lymphocytes # (auto) 3.48 K/uL (1.2-3.4); Lymphocytes % (auto) 37.1 %; Mean Corpuscular Hemoglobin 28.1 pg (25-34); Mean Corpuscular Hgb Conc 32.5 g/dL (32-36); Mean Corpuscular Volume 86.6 fL (80-100); Mean Platelet Volume 10.3 fL (7.4-10.4); Monocytes # (auto) 0.67 K/uL (0.11-0.59); Monocytes % (auto) 7.1 %; Neutrophils # (auto) 5.05 K/uL (1.4-6.5); Neutrophils % (auto) 53.9 %; Platelet Count 266 K/uL (130-400); RDW Coefficient of Variation 14.6 % (11.5-14.5); RDW Standard Deviation 45.8 fL (36.4-46.3); Red Blood Count 4.09 M/uL (4.7-6.1); White Blood Count 9.38 K/uL (4.8-10.8)
[2019-08-12 20:12] LABS: Prothrombin Time 10.4 Seconds (9.0-12.0)
[2019-08-12 20:23] LABS: Albumin Globulin Ratio 0.7 (0.9-2); Albumin Level 3.1 gm/dl (3.4-5.0); BUN Creatinine Ratio 21.6 (10-20); Bilirubin,Total 0.3 mg/dl (0.2-1); Calcium 9.2 mg/dl (8.5-10.1); Creatinine Clr Calc Pharmacy 68.5 ml/min; Est GFR (African American) 57.7; Est GFR (Non-African American) 49.8; Globulin 4.6 gm/dl (2.5-4.0); Thyroid Stimulating Hormone 6.83 uIu/ml (0.300-4.500); Total Protein 7.7 gm/dl (6.4-8.2); Troponin I 0.023 ng/ml (0-0.045)
--- NOTE | 2019-08-12 20:27 | XRay Report ---
XR chest 1V portable HISTORY: weakness COMPARISON: Chest 02/20/2019. FINDINGS: No pneumothorax. No pleural effusions. Extensive thoracic spinal fusion hardware is again n oted. Left basilar linear densities favor subsegmental atelectasis. Otherwise, lungs are clear. No ev idence for pulmonary edema. The heart remains mildly enlarged. Blunting of the left lateral costophre sarah sulcus. This is likely chronic. IMPRESSION: Stable mild cardiomegaly. Otherwise, no acute process within the chest. ACT 112: Negative or not required by law. Electronically signed by: Segundo Brown M.D. 08/12/2019 8:26 PM
--- NOTE | 2019-08-12 20:31 | XRay Report ---
RIGHT ELBOW 3 VIEWS HISTORY: Right elbow pain. fall COMPARISON: None. FINDINGS: There is no fracture or dislocation. Soft tissues are unremarkable. No joint effusion. IMPRESSION: No fractures. ACT 112: Negative or not required by law. Electronically signed by: Segundo Brown M.D. 08/12/2019 8:30 PM
[2019-08-12 20:38] LABS: T4 Free Thyroxine 1.03 ng/dl (0.8-1.6)
--- NOTE | 2019-08-12 20:39 | CT Scan Report ---
HEAD CT NONCONTRAST CT DOSE: HISTORY: fall TECHNIQUE: Multiaxial CT images of the head were performed without the use of intravenous contrast. A utomated exposure control was utilized for this study. A dose lowering technique was utilized adheri ng to the principles of ALARA. Comparison: None. Findings: The paranasal sinuses and mastoid air cells are clear. The calvarium and skull base are int act. There is no mass, hematoma, midline shift, acute infarct. White matter hypodensity is nonspecifi c but suggestive of microvascular ischemic change. The ventricles and sulci demonstrate mild age-rela berny involutional changes. Old small infarcts seen within the left frontal lobe and left occipital lob e. These remain unchanged. There is a small ossific density seen within the left lateral scalp. This is also stable. Impression: No significant change compared to the prior study. No acute intracranial abnormality. ACT 112: Negative or not required by law. Electronically signed by: eSgundo Brown M.D. 08/12/2019 8:37 PM
--- NOTE | 2019-08-12 20:44 | CT Scan Report ---
CERVICAL SPINE CT CT DOSE: 1167.32 mGy.cm HISTORY: fall TECHNIQUE: Multiaxial CT images of the cervical spine were performed and reformatted in the sagittal and coronal plane without the use of contrast. A dose lowering technique was utilized adhering to th e principles of ALARA. COMPARISON: None. FINDINGS: No fractures. No subluxation. Prevertebral soft tissues and the C1-C2 interval are intact. No pneumothorax. Partially visualized thoracic spinal fusion hardware. The left internal carotid marely ry stent. The left C2-C3 facets are fused. IMPRESSION: No fractures within the cervical spine. ACT 112: Negative or not required by law. Electronically signed by: Segundo Brown M.D. 08/12/2019 8:43 PM
[2019-08-12] MEDS ORDERED: SODIUM CHLORIDE 0.9% 500 ML IV ONE (20:48)
[2019-08-12 20:53] LABS: Appearance Urine Cloudy (Clear); Bacteria Urine Automated 4+ (Negative); Bilirubin Urine Negative (Negative); Blood Urine Negative (Negative); Color Urine Yellow; Epithelial Cell Urine Auto 0-5 /lpf (0-5); Glucose Urine UA Trace (Negative); Ketones Urine Negative (Negative); Leukocyte Esterase Urine 2+ (Negative); Nitrite Urine Positive (Negative); Protein Urine 1+ (Negative); RBC Urine Automated 0-4 /hpf (0-4); Specific Gravity Urine 1.019 (1.000-1.030); Urobilinogen Urine Negative (Negative); WBC Urine Automated >30 /hpf (0-5)
[2019-08-12] MEDS ORDERED: cefTRIAXone SODIUM 2,000 MG/70 ML BAG IV STA (20:59)
[2019-08-12] MEDS ORDERED: NYSTATIN POWDER 15GM BTL EXT ONE (21:04)
[2019-08-12 21:06] LABS: Potassium 4.2 mmol/L (3.5-5.1)
[2019-08-12] MEDS ORDERED: levETIRAcetam 500 MG TAB PO ONE (21:10)
[2019-08-12 21:11] LABS: Magnesium 1.6 mg/dl (1.8-2.4)
[2019-08-12] MEDS ORDERED: METFORMIN HCL 500 MG TAB PO ONE (21:11)
--- NOTE | 2019-08-12 22:31 | History & Physical Report ---
Date of Service August 12, 2019 Assessment & Plan (1) SVT (supraventricular tachycardia): Palpitation Possible related to infection Present on admission after having an episode of palpitation, hypotension and SVT at home while getting up from his couch SVT seemed to broke when he fell in the parking lot from the stretcher HR noted to be 150's at home EKG in the ER showed sinus tachycardia Received IVF in the ER HR stable currently Troponin on admission 0.02 Last echo on 02/07 showed severe hypokinesis to akinesis of the anterior, anteroseptal and apical wall with associated wall thinning involving segments otherwise normal wall motion. Grade 1 diastolic dysfunction. Will continue his metoprolol Will troponin (next trop might increase due to elevate HR in the 150's) Will get an echo in am Cardiology consult Continue monitor in closely in tele Currently denies any symptoms (2) UTI (urinary tract infection): Hx of recurrent UTI UA positive for leukocytes, bacteria and nitrate lactic acid elevated received Rocephin in the ER, will continue Follow up urine cx and blood cx (3) Ischemic cardiomyopathy: (4) CAD (coronary artery disease): Denies any chest pain Continue aspirin statin and metoprolol Continue monitor closely (5) History of left common carotid artery stent placement: Continue aspirin and statin (6) Seizure: Received Keppra in the ER Will continue his outpatient dose Keppra Seizure precaution (7) CVA (cerebrovascular accident): CT head showed no acute intracranial abnormality. Continue current therapy (8) Hypertension: Will hold lasix due to increase in creatinine Continue Losartan BP stable (9) Diabetes: BS on admission above 300 Last HbA1c 6.3 on 04/2019 Metformin given in the ER Will hold oral diabetes med Will start on lantus and novolog sliding scale Will consult pharmacy for glycemic management Continue monitor BS (10) Hypomagnesemia: Mg on admission 1.6 Mg replaced Continue monitor electrolytes (11) MARIELLE (acute kidney injury): Creatinine on admission 1.4, baseline 1 Received IVF in the ER Will do gentle IVF [id number] Will hold lasix Monitor BMP (12) Fall: Imaging done showed no fracture Fall precaution PT/OT eval DVT px on heparin subq CODE STATUS FULL CODE History of Present Illness Chief Complaint: Palpitation Primary Care Provider: PT DECLINED 73 yo M with PMH of DM type 2, ischemic cardiomyopathy, anemia, GERD, Hypertension, CAD, 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 Pt said that he was sitting on the cough when he tried to get up to use the bathroom, his legs felt weak and fell back on the chair. He said that he felt his heart was racing. His check his vitals, his BP was low and his HR was above 150's. called 911 and when the EMS came he had an EKG that showed SVT. Pt said that he did not have any chest pain, dizziness and SOB. Pt said that he had episode of palpitation in the past few months ago. I spoke to the and she confirmed that patient did not lose consciousness or have any seizure. He fell on the stretcher coming out of the ambulance in the driveway onto his right side striking his elbow and his head. Denies any nausea, vomiting, fever, recent traveling or any expose to anyone positive with Covid-19 Allergies Allergy/AdvReac Type Severity Reaction Status Date / Time tramadol [From Ultram] Allergy Severe Seizure Verified 08/12/19 20:10 haloperidol [From Haldol] Allergy Unknown ON MED Verified 08/12/19 20:10 LIST FROM HOME Home Medications Home Medications Medication Instructions Recorded Confirmed Type acetaminophen 650 mg PO TID PRN 02/06/19 08/12/19 History ascorbic acid (vitamin C) 1,000 mg PO BID 02/06/19 08/12/19 History aspirin 325 mg PO DAILY 02/06/19 08/12/19 History atorvastatin 40 mg PO HS 02/06/19 08/12/19 History docusate sodium 100 mg PO BIDM 02/06/19 08/12/19 History famotidine 20 mg PO BIDM 02/06/19 08/12/19 History ferrous sulfate 325 mg PO TIDM 02/06/19 08/12/19 History folic acid 1 mg PO DAILY 02/06/19 08/12/19 History furosemide 40 mg PO QAM 02/06/19 08/12/19 History glipizide 10 mg PO BIDM 02/06/19 08/12/19 History levothyroxine 25 mcg PO DAILYBB 02/06/19 08/12/19 History metformin 1,000 mg PO BIDM 02/06/19 08/12/19 History cetirizine 10 mg PO HS 08/12/19 08/12/19 History escitalopram oxalate [Lexapro] 10 mg PO DAILY 08/12/19 08/12/19 History finasteride 5 mg PO QDL 08/12/19 08/12/19 History levetiracetam [Keppra] 750 mg PO AMHS 08/12/19 08/12/19 History losartan 50 mg PO DAILY 08/12/19 08/12/19 History metoprolol succinate 50 mg PO DAILY 08/12/19 08/12/19 History Past Med/Surg History Social History Preferred Language: Serbian Communication Ability: Effective Beliefs That Will Affect Care: None Current Living Situation: Spouse Current Living Situation Comment: live with Other Information That Helps Us Care for You: No Feels Safe at Home: Yes Safety Concerns: Feels Safe At This Time Smoking Status: Former smoker Smoking End Date: 1969 ; Hx Alcohol Use: No Hx Substance Use: No Review of Systems Review of Systems: All systems reviewed & are unremarkable except as noted in HPI & below Physical Exam Physical Exam: General- No acute distress Head- atraumatic Eyes- Blindness ENT- oropharynx clear Neck- supple, no JVD Lungs- clear to auscultation Heart- +tachycardia Abdomen- normal bowel sounds, soft, nontender Extremities- no calf tenderness, +trace edema Neuro- alert, oriented x 3; PERRL, EOMI; no facial palsy; no dysarthria Skin- warm & dry, bruises in right elbow Results & Data Results & Data ([facility]) Vital Signs (Past 12 Hours) Vital Signs Temp Pulse Resp BP Pulse Ox 08/12/19 21:31 96 H 23 97 08/12/19 21:30 96 H 24 161/82 H 97 08/12/19 21:20 97 H 22 97 08/12/19 21:10 98 H 24 97 08/12/19 21:01 97 H 25 H 96 08/12/19 21:00 98 H 27 H 154/78 H 96 08/12/19 20:50 98 H 25 H 97 08/12/19 20:40 99 H 26 H 96 08/12/19 20:32 101 H 24 96 08/12/19 20:31 101 H 27 H 155/78 H 96 08/12/19 20:30 102 H 27 H 95 08/12/19 20:20 100 H 24 95 08/12/19 20:17 101 H 28 H 96 08/12/19 20:00 103 H 28 H 97 08/12/19 19:54 95 08/12/19 19:53 96 08/12/19 19:50 102 H 27 H 96 08/12/19 19:40 101 H 21 95 08/12/19 19:35 37.0 C 101 H 20 143/75 H 97 08/12/19 19:34 102 H 31 H 144/74 H 96 08/12/19 19:31 102 H 28 H 143/75 H 96 Diagnostic Findings CERVICAL SPINE CT CT DOSE: 1167.32 mGy.cm HISTORY: fall TECHNIQUE: Multiaxial CT images of the cervical spine were performed and reformatted in the sagittal and coronal plane without the use of contrast. A dose lowering technique was utilized adhering to the principles of ALARA. COMPARISON: None. FINDINGS: No fractures. No subluxation. Prevertebral soft tissues and the C1-C2 interval are intact. No pneumothorax. Partially visualized thoracic spinal fusion hardware. The left internal carotid artery stent. The left C2-C3 facets are fused. IMPRESSION: No fractures within the cervical spine. ACT 112: Negative or not required by law. Electronically signed by: Segundo Brown M.D. 08/12/2019 8:43 PM Dictated: 08/12/192037 Transcribed: 08/12/192037 RIGHT ELBOW 3 VIEWS HISTORY: Right elbow pain. fall COMPARISON: None. FINDINGS: There is no fracture or dislocation. Soft tissues are unremarkable. No joint effusion. IMPRESSION: No fractures. ACT 112: Negative or not required by law. Electronically signed by: Segundo Brown M.D. 08/12/2019 8:30 PM Dictated: 08/12/192027 Transcribed: 08/12/192027 HEAD CT NONCONTRAST CT DOSE: HISTORY: fall TECHNIQUE: Multiaxial CT images of the head were performed without the use of intravenous contrast. Automated exposure control was utilized for this study. A dose lowering technique was utilized adhering to the principles of ALARA. Comparison: None. Findings: The paranasal sinuses and mastoid air cells are clear. The calvarium and skull base are intact. There is no mass, hematoma, midline shift, acute infarct. White matter hypodensity is nonspecific but suggestive of microvascular ischemic change. The ventricles and sulci demonstrate mild age-related involutional changes. Old small infarcts seen within the left frontal lobe and left occipital lobe. These remain unchanged. There is a small ossific density seen within the left lateral scalp. This is also stable. Impression: No significant change compared to the prior study. No acute intracranial abnormality. ACT 112: Negative or not required by law. Electronically signed by: Segundo Brown M.D. 08/12/2019 8:37 PM Dictated: 08/12/192032 Transcribed: 08/12/192032 XR chest 1V portable HISTORY: weakness COMPARISON: Chest 02/20/2019. FINDINGS: No pneumothorax. No pleural effusions. Extensive thoracic spinal fusion hardware is again noted. Left basilar linear densities favor subsegmental atelectasis. Otherwise, lungs are clear. No evidence for pulmonary edema. The heart remains mildly enlarged. Blunting of the left lateral costophrenic sulcus. This is likely chronic. IMPRESSION: Stable mild cardiomegaly. Otherwise, no acute process within the chest. ACT 112: Negative or not required by law. Electronically signed by: Segundo Brown M.D. 08/12/2019 8:26 PM Dictated: 08/12/192024 Transcribed: 08/12/192024 (1) CVA (cerebrovascular accident) CVA mechanism: unspecified Qualified Code(s): I63.9 - Cerebral infarction, u nspecified (2) Fall Encounter type: initial encounter Qualified Code(s): W19.XXXA - Unspecified fall, initial encounter
--- NOTE | 2019-08-12 22:42 | Emergency Department Note ---
Impression & Plan Acute UTI, Hyperglycemia due to type 2 diabetes mellitus, Near syncope, Paroxysmal SVT (supraventricular tachycardia), Fall ED Provider Note Provider: Bala Tabares MD DATE OF SERVICE: 08/12/2019 CHIEF COMPLAINT: Palpitations, shortness of breath, near syncope HISTORY OF PRESENT ILLNESS: Patient is a 73-year-old gentleman with a history of stroke, blindness, CAD, hyperlipidemia, SVT, GERD, anemia, diabetes presenting today via ambulance from home. Patient states that sitting on a couch home and then began to feel short of breath and had some palpitations and felt weak. Alerted his . Try to get up in the couch and fell back to the couch. EMS was alerted. Noted to be significantly tachycardic. Called EMS prior to arrival. Some concerns for possible A. fib/a flutter versus SVT on the prehospital EKG. Did not receive any medication. Patient unfortunately fell on the stretcher coming out of the ambulance in the driveway onto his right side striking his elbow and his head. Was brought in here for further evaluation of this and his initial complaints. Patient is complaining of feeling improved now compared to earlier. States he noted his blood sugars are off today. Denies significant head pain or right elbow pain. Does have blindness from the previous stroke as well as deficits in the right upper extremity. Patient complains of a rash in the inguinal region and has been applying TheraFlu to this area. Denies dysuria but has a history of UTI per his report. No seizure activity reported. REVIEW OF SYSTEMS: A total of 10 review of systems was obtained and negative except as stated above in the HPI. PAST MEDICAL HISTORY: As noted above MEDICATIONS: Reviewed his medication list includes Keppra, Lexapro, Synthroid, metformin, glipizide SOCIAL HISTORY: and lives at home with PHYSICAL EXAM: GENERAL: alert and oriented in no acute distress on stretcher Head: normocephalic and atraumatic EYES: No reaction to the light. Blind. NECK: Trachea midline. Supple. ENT: Mucous membranes pink and moist. LUNGS: Airway patent. No retractions. Breath sounds clear anteriorly HEART: Regular tachycardic rate and rhythm. No chest wall tenderness ABDOMEN: Soft and non-tender, without guarding or rebound. SKIN: Acyanotic, warm, dry, without rashes EXTREMITIES: 1+ lower extremity edema. Slight tenderness of the right elbow without crepitus or obvious deformity. NEUROLOGICAL: No aphasia. No real slurred speech. No movement of the right u pper extremity. Blind. EKG: Sinus tachycardia 102 bpm. No PVCs. No acute ST segment elevation or depressions grossly appreciated. Inferior T wave inversion noted. QTc 456. CONTINUOUS CARDIAC MONITORING: was ordered and showed a heart rate of 98 bpm in normal sinus rhythm Patient's hypertension was referred to the hospitalist [facility] 15. HOSPITAL COURSE: 193Patient was first seen and H&P performed. 2100Patient reassessed and updated. Patient was agreed with plan for admission. Discussed and updated his . Given a dose of Keppra and metformin. 2120 discussed with [facility]. Patient's laboratory studies and imaging reviewed. Differential includes Infection, dehydration, metabolic abnormality, hypo/hyperglycemia, electrolyte disturbance, anemia, hypoxia, cardiac sources, intracerebral event, toxicologic, neurologic, as well as other pathologies. IMPRESSION/MEDICAL DECISION MAKING: Patient presents for near syncopal event with tachycardia prior to arrival given his history and further review of the prehospital EKG which does have some artifact sounds like this was likely recurrence of his SVT. Not in SVT upon arrival. Does evidence of hyperglycemia as well as obvious evidence of UTI. Evidence of an inguinal candidal infection noted. Given nystatin powder to this area. Ceftriaxone ordered for UTI. Lactate and cultures ordered. Mild lactate elevation. Given some fluid hydration. Ordered evening Keppra and metformin here. Will admit the patient. Hyperglycemia may be related to his underlying UTI. I doubt hypotension or sepsis at this time. No significant cardiac arrhythmia here. No evidence of acute ACS. Chest x-ray is without evidence of pneumonia or pneumothorax. CT the head and cervical spine completed given the accidental fall outside without evidence of acute traumatic injury. X-ray of elbow also complete without acute findings. Given his comorbidities and findings recommended admission. Discussed with him and his are in agreement. Wonder if the hyperglycemia and SVT episode and weakness today were precipitated by the UTI. DIAGNOSIS: Near syncope, palpitations, SVT, acute UTI, fall DISPOSITION: Hospitalist will evaluate Patient was agreeable with this plan. Past Med/Surg History Social History Preferred Language: Greek Communication Ability: Effective Beliefs That Will Affect Care: None Current Living Situation: Spouse Feels Safe at Home: Yes Smoking Status: Former smoker Hx Alcohol Use: No Hx Substance Use: No Allergies Allergies Allergy/AdvReac Type Severity Reaction Status Date / Time tramadol [From Ultram] Allergy Severe Seizure Verified 08/12/19 20:10 haloperidol [From Haldol] Allergy Unknown ON MED Verified 08/12/19 20:10 LIST FROM HOME Home Meds Home Medications Medication Instructions Recorded Confirmed acetaminophen 650 mg PO TID PRN 02/06/19 08/12/19 ascorbic acid (vitamin C) 1,000 mg PO BID 02/06/19 08/12/19 aspirin 325 mg PO DAILY 02/06/19 08/12/19 atorvastatin 40 mg PO HS 02/06/19 08/12/19 docusate sodium 100 mg PO BIDM 02/06/19 08/12/19 famotidine 20 mg PO BIDM 02/06/19 08/12/19 ferrous sulfate 325 mg PO TIDM 02/06/19 08/12/19 folic acid 1 mg PO DAILY 02/06/19 08/12/19 furosemide 40 mg PO QAM 02/06/19 08/12/19 glipizide 10 mg PO BIDM 02/06/19 08/12/19 levothyroxine 25 mcg PO DAILYBB 02/06/19 08/12/19 metformin 1,000 mg PO BIDM 02/06/19 08/12/19 cetirizine 10 mg PO HS 08/12/19 08/12/19 escitalopram oxalate [Lexapro] 10 mg PO DAILY 08/12/19 08/12/19 finasteride 5 mg PO QDL 08/12/19 08/12/19 levetiracetam [Keppra] 750 mg PO AMHS 08/12/19 08/12/19 losartan 50 mg PO DAILY 08/12/19 08/12/19 metoprolol succinate 50 mg PO DAILY 08/12/19 08/12/19 Results & Data (ED) Vital Signs Vital Signs - 24 hr 08/12/19 19:31 08/12/19 19:34 08/12/19 19:35 Temperature 37.0 C Temperature Source Oral Pulse Rate 102 H 102 H 101 H Pulse Rate [Right Finger] Pulse Rate from SpO2 Sensor 102 H 102 H 101 H Pulse Rhythm [Right Finger] Pulse Strength [Right Finger] Respiratory Rate 28 H 31 H 20 Respiratory Effort / Characteristics Non-Labored Respiratory Depth Normal Respiratory Pattern Blood Pressure 143/75 H 144/74 H 143/75 H Blood Pressure [Right Arm] Blood Pressure Mean 91 84 97 Blood Pressure Mean [Right Arm] Pulse Oximetry 96 96 97 Oxygen Delivery Method Room Air Sepsis Recent Fever Within 48 Hours No Sepsis Action Taken by Nursing No Action Required 08/12/19 19:40 08/12/19 19:50 08/12/19 19:53 Temperature Temperature Source Pulse Rate 101 H 102 H Pulse Rate [Right Finger] Pulse Rate from SpO2 Sensor 101 H 103 H Pulse Rhythm [Right Finger] Pulse Strength [Right Finger] Respiratory Rate 21 27 H Respiratory Effort / Characteristics Respiratory Depth Respiratory Pattern Blood Pressure Blood Pressure [Right Arm] Blood Pressure Mean Blood Pressure Mean [Right Arm] Pulse Oximetry 95 96 96 Oxygen Delivery Method Room Air Sepsis Recent Fever Within 48 Hours Sepsis Action Taken by Nursing 08/12/19 19:54 08/12/19 20:00 08/12/19 20:17 Temperature Temperature Source Pulse Rate 103 H 101 H Pulse Rate [Right Finger] Pulse Rate from SpO2 Sensor 103 H 101 H Pulse Rhythm [Right Finger] Pulse Strength [Right Finger] Respiratory Rate 28 H 28 H Respiratory Effort / Characteristics Respiratory Depth Respiratory Pattern Blood Pressure Blood Pressure [Right Arm] Blood Pressure Mean Blood Pressure Mean [Right Arm] Pulse Oximetry 95 97 96 Oxygen Delivery Method Room Air Sepsis Recent Fever Within 48 Hours Sepsis Action Taken by Nursing 08/12/19 20:20 08/12/19 20:30 08/12/19 20:31 Temperature Temperature Source Pulse Rate 100 H 102 H 101 H Pulse Rate [Right Finger] Pulse Rate from SpO2 Sensor 100 H 102 H 102 H Pulse Rhythm [Right Finger] Pulse Strength [Right Finger] Respiratory Rate 24 27 H 27 H Respiratory Effort / Characteristics Respiratory Depth Respiratory Pattern Blood Pressure 155/78 H Blood Pressure [Right Arm] Blood Pressure Mean 89 Blood Pressure Mean [Right Arm] Pulse Oximetry 95 95 96 Oxygen Delivery Method Sepsis Recent Fever Within 48 Hours Sepsis Action Taken by Nursing 08/12/19 20:32 08/12/19 20:40 08/12/19 20:50 Temperature Temperature Source Pulse Rate 101 H 99 H 98 H Pulse Rate [Right Finger] Pulse Rate from SpO2 Sensor 101 H 99 H 99 H Pulse Rhythm [Right Finger] Pulse Strength [Right Finger] Respiratory Rate 24 26 H 25 H Respiratory Effort / Characteristics Respiratory Depth Respiratory Pattern Blood Pressure Blood Pressure [Right Arm] Blood Pressure Mean Blood Pressure Mean [Right Arm] Pulse Oximetry 96 96 97 Oxygen Delivery Method Sepsis Recent Fever Within 48 Hours Sepsis Action Taken by Nursing 08/12/19 21:00 08/12/19 21:01 08/12/19 21:10 Temperature Temperature Source Pulse Rate 98 H 97 H 98 H Pulse Rate [Right Finger] Pulse Rate from SpO2 Sensor 98 H 98 H 99 H Pulse Rhythm [Right Finger] Pulse Strength [Right Finger] Respiratory Rate 27 H 25 H 24 Respiratory Effort / Characteristics Respiratory Depth Respiratory Pattern Blood Pressure 154/78 H Blood Pressure [Right Arm] Blood Pressure Mean 95 Blood Pressure Mean [Right Arm] Pulse Oximetry 96 96 97 Oxygen Delivery Method Sepsis Recent Fever Within 48 Hours Sepsis Action Taken by Nursing 08/12/19 21:20 08/12/19 21:30 08/12/19 21:31 Temperature Temperature Source Pulse Rate 97 H 96 H 96 H Pulse Rate [Right Finger] Pulse Rate from SpO2 Sensor 97 H 96 H 96 H Pulse Rhythm [Right Finger] Pulse Strength [Right Finger] Respiratory Rate 22 24 23 Respiratory Effort / Characteristics Respiratory Depth Respiratory Pattern Blood Pressure 161/82 H Blood Pressure [Right Arm] Blood Pressure Mean 100 Blood Pressure Mean [Right Arm] Pulse Oximetry 97 97 97 Oxygen Delivery Method Sepsis Recent Fever Within 48 Hours Sepsis Action Taken by Nursing 08/12/19 21:40 08/12/19 21:50 08/12/19 22:00 Temperature Temperature Source Pulse Rate 96 H 96 H 93 H Pulse Rate [Right Finger] Pulse Rate from SpO2 Sensor 96 H Pulse Rhythm [Right Finger] Pulse Strength [Right Finger] Respiratory Rate 24 25 H 24 Respiratory Effort / Characteristics Respiratory Depth Respiratory Pattern Blood Pressure 165/87 H Blood Pressure [Right Arm] Blood Pressure Mean 96 Blood Pressure Mean [Right Arm] Pulse Oximetry 96 Oxygen Delivery Method Sepsis Recent Fever Within 48 Hours Sepsis Action Taken by Nursing 08/12/19 22:10 08/12/19 22:20 08/12/19 22:30 Temperature Temperature Source Pulse Rate 95 H 96 H 91 H Pulse Rate [Right Finger] Pulse Rate from SpO2 Sensor Pulse Rhythm [Right Finger] Pulse Strength [Right Finger] Respiratory Rate 18 24 24 Respiratory Effort / Characteristics Respiratory Depth Respiratory Pattern Blood Pressure Blood Pressure [Right Arm] Blood Pressure Mean Blood Pressure Mean [Right Arm] Pulse Oximetry Oxygen Delivery Method Sepsis Recent Fever Within 48 Hours Sepsis Action Taken by Nursing 08/12/19 22:40 08/12/19 23:01 Temperature Temperature Source Pulse Rate 91 H Pulse Rate [Right Finger] 89 Pulse Rate from SpO2 Sensor Pulse Rhythm [Right Finger] Regular Pulse Strength [Right Finger] Normal Respiratory Rate 27 H 20 Respiratory Effort / Characteristics Non-Labored Spontaneous Respiratory Depth Normal Respiratory Pattern Regular Blood Pressure Blood Pressure [Right Arm] 141/77 H Blood Pressure Mean Blood Pressure Mean [Right Arm] 98 Pulse Oximetry 96 Oxygen Delivery Method Room Air Sepsis Recent Fever Within 48 Hours Sepsis Action Taken by Nursing Laboratory Data Result diagrams: 08/12/19 19:32 08/12/19 20:32 Lab Results 08/12/19 08/12/19 08/12/19 Range/Units 19:32 19:32 19:32 WBC 9.38 (4.8-10.8) K/uL RBC 4.09 L (4.7-6.1) M/uL Hgb 11.5 L (14.0-18.0) g/dL Hct 35.4 L (42-52) % MCV 86.6 (80-100) fL MCH 28.1 (25-34) pg MCHC 32.5 (32-36) g/dL RDW Std Deviation 45.8 (36.4-46.3) fL RDW Coeff of Marva 14.6 H (11.5-14.5) % Plt Count 266 (130-400) K/uL MPV 10.3 (7.4-10.4) fL Immature Gran % (Auto) 0.4 % Neut % (Auto) 53.9 % Lymph % (Auto) 37.1 % [place] % (Auto) 7.1 % Eos % (Auto) 1.3 % Baso % (Auto) 0.2 % Immature Gran # (Auto) 0.04 H (0.00-0.02) K/uL Neut # (Auto) 5.05 (1.4-6.5) K/uL Lymph # (Auto) 3.48 H (1.2-3.4) K/uL [place] # (Auto) 0.67 H (0.11-0.59) K/uL Eos # (Auto) 0.12 (0-0.5) K/uL Baso # (Auto) 0.02 (0-0.2) K/uL PT 10.4 (9.0-12.0) Seconds INR 1.0 (0.9-1.1) Sodium 132 L (136-145) mmol/L Potassium (3.5-5.1) mmol/L Chloride 95 L (98-107) mmol/L Carbon Dioxide 27 (21-32) mmol/L Anion Gap 10.0 (3-11) BUN 30 H (7-18) mg/dl Creatinine 1.41 H (0.6-1.4) mg/dl Est Cr Clr Drug Dosing 68.5 ml/min Est GFR ( Amer) 57.7 Est GFR (Non-Af Amer) 49.8 BUN/Creatinine Ratio 21.6 H (10-20) Glucose 328 H* (70-99) mg/dl POC Glucose (70-99) mg/dl Lactate (0.4-2.0) mmol/L Calcium 9.2 (8.5-10.1) mg/dl Magnesium (1.8-2.4) mg/dl Total Bilirubin 0.3 (0.2-1) mg/dl AST (15-37) U/L ALT 36 (12-78) U/L Alkaline Phosphatase 123 H (45-117) U/L Troponin I 0.023 (0-0.045) ng/ml Total Protein 7.7 (6.4-8.2) gm/dl Albumin 3.1 L (3.4-5.0) gm/dl Globulin 4.6 H (2.5-4.0) gm/dl Albumin/Globulin Ratio 0.7 L (0.9-2) Beta-Hydroxybutyric Acd (0.2-2.81) mg/dl TSH 6.830 H (0.300-4.500) uIu/ml Free T4 1.03 (0.8-1.6) ng/dl Urine Color Urine Appearance (Clear) Urine pH (4.5-7.5) Ur Specific [place] (1.000-1.030) Urine Protein (Negative) Urine Glucose (UA) (Negative) Urine Ketones (Negative) Urine Blood (Negative) Urine Nitrite (Negative) Urine Bilirubin (Negative) Urine Urobilinogen (Negative) Ur Leukocyte Esterase (Negative) Urine WBC (Auto) (0-5) /hpf Urine RBC (Auto) (0-4) /hpf U Hyaline Cast (Auto) (0-5) /lpf U Epithel Cells (Auto) (0-5) /lpf Urine Bacteria (Auto) (Negative) 08/12/19 08/12/19 08/12/19 Range/Units 20:30 20:32 22:05 WBC (4.8-10.8) K/uL RBC (4.7-6.1) M/uL Hgb (14.0-18.0) g/dL Hct (42-52) % MCV (80-100) fL MCH (25-34) pg MCHC (32-36) g/dL RDW Std Deviation (36.4-46.3) fL RDW Coeff of Marva (11.5-14.5) % Plt Count (130-400) K/uL MPV (7.4-10.4) fL Immature Gran % (Auto) % Neut % (Auto) % Lymph % (Auto) % [place] % (Auto) % Eos % (Auto) % Baso % (Auto) % Immature Gran # (Auto) (0.00-0.02) K/uL Neut # (Auto) (1.4-6.5) K/uL Lymph # (Auto) (1.2-3.4) K/uL [place] # (Auto) (0.11-0.59) K/uL Eos # (Auto) (0-0.5) K/uL Baso # (Auto) (0-0.2) K/uL PT (9.0-12.0) Seconds INR (0.9-1.1) Sodium (136-145) mmol/L Potassium 4.2 (3.5-5.1) mmol/L Chloride (98-107) mmol/L Carbon Dioxide (21-32) mmol/L Anion Gap (3-11) BUN (7-18) mg/dl Creatinine (0.6-1.4) mg/dl Est Cr Clr Drug Dosing ml/min Est GFR ( Amer) Est GFR (Non-Af Amer) BUN/Creatinine Ratio (10-20) Glucose (70-99) mg/dl POC Glucose (70-99) mg/dl Lactate 2.3 H* (0.4-2.0) mmol/L Calcium (8.5-10.1) mg/dl Magnesium 1.6 L (1.8-2.4) mg/dl Total Bilirubin (0.2-1) mg/dl AST 31 (15-37) U/L ALT (12-78) U/L Alkaline Phosphatase (45-117) U/L Troponin I (0-0.045) ng/ml Total Protein (6.4-8.2) gm/dl Albumin (3.4-5.0) gm/dl Globulin (2.5-4.0) gm/dl Albumin/Globulin Ratio (0.9-2) Beta-Hydroxybutyric Acd (0.2-2.81) mg/dl TSH (0.300-4.500) uIu/ml Free T4 (0.8-1.6) ng/dl Urine Color Yellow Urine Appearance Cloudy A (Clear) Urine pH 5.0 (4.5-7.5) Ur Specific [place] 1.019 (1.000-1.030) Urine Protein 1+ H (Negative) Urine Glucose (UA) Trace H (Negative) Urine Ketones Negative (Negative) Urine Blood Negative (Negative) Urine Nitrite Positive A (Negative) Urine Bilirubin Negative (Negative) Urine Urobilinogen Negative (Negative) Ur Leukocyte Esterase 2+ H (Negative) Urine WBC (Auto) >30 H (0-5) /hpf Urine RBC (Auto) 0-4 (0-4) /hpf U Hyaline Cast (Auto) 1-5 (0-5) /lpf U Epithel Cells (Auto) 0-5 (0-5) /lpf Urine Bacteria (Auto) 4+ H (Negative) 08/12/19 Range/Units 23:13 WBC (4.8-10.8) K/uL RBC (4.7-6.1) M/uL Hgb (14.0-18.0) g/dL Hct (42-52) % MCV (80-100) fL MCH (25-34) pg MCHC (32-36) g/dL RDW Std Deviation (36.4-46.3) fL RDW Coeff of Marva (11.5-14.5) % Plt Count (130-400) K/uL MPV (7.4-10.4) fL Immature Gran % (Auto) % Neut % (Auto) % Lymph % (Auto) % [place] % (Auto) % Eos % (Auto) % Baso % (Auto) % Immature Gran # (Auto) (0.00-0.02) K/uL Neut # (Auto) (1.4-6.5) K/uL Lymph # (Auto) (1.2-3.4) K/uL [place] # (Auto) (0.11-0.59) K/uL Eos # (Auto) (0-0.5) K/uL Baso # (Auto) (0-0.2) K/uL PT (9.0-12.0) Seconds INR (0.9-1.1) Sodium (136-145) mmol/L Potassium (3.5-5.1) mmol/L Chloride (98-107) mmol/L Carbon Dioxide (21-32) mmol/L Anion Gap (3-11) BUN (7-18) mg/dl Creatinine (0.6-1.4) mg/dl Est Cr Clr Drug Dosing ml/min Est GFR ( Amer) Est GFR (Non-Af Amer) BUN/Creatinine Ratio (10-20) Glucose (70-99) mg/dl POC Glucose 235 H (70-99) mg/dl Lactate (0.4-2.0) mmol/L Calcium (8.5-10.1) mg/dl Magnesium (1.8-2.4) mg/dl Total Bilirubin (0.2-1) mg/dl AST (15-37) U/L ALT (12-78) U/L Alkaline Phosphatase (45-117) U/L Troponin I (0-0.045) ng/ml Total Protein (6.4-8.2) gm/dl Albumin (3.4-5.0) gm/dl Globulin (2.5-4.0) gm/dl Albumin/Globulin Ratio (0.9-2) Beta-Hydroxybutyric Acd (0.2-2.81) mg/dl TSH (0.300-4.500) uIu/ml Free T4 (0.8-1.6) ng/dl Urine Color Urine Appearance (Clear) Urine pH (4.5-7.5) Ur Specific [place] (1.000-1.030) Urine Protein (Negative) Urine Glucose (UA) (Negative) Urine Ketones (Negative) Urine Blood (Negative) Urine Nitrite (Negative) Urine Bilirubin (Negative) Urine Urobilinogen (Negative) Ur Leukocyte Esterase (Negative) Urine WBC (Auto) (0-5) /hpf Urine RBC (Auto) (0-4) /hpf U Hyaline Cast (Auto) (0-5) /lpf U Epithel Cells (Auto) (0-5) /lpf Urine Bacteria (Auto) (Negative) Administered Medications Discontinued Medications Sodium Chloride (Nss) 500 mls @ 999 mls/hr IV .Q31M ONE Stop: 08/12/19 21:18 Last Infusion: 08/12/19 21:50 Dose: 0 mls/hr Documented by: [id number] Admin: 08/12/19 20:58 Dose: 999 mls/hr Documented by: [id number] Ceftriaxone Sodium (Rocephin) 2,000 mg in 70 mls @ 140 mls/hr IV NOW STA Stop: 08/12/19 21:28 Last Infusion: 08/12/19 23:36 Dose: 0 mls/hr Documented by: [id number] Admin: 08/12/19 22:48 Dose: 140 mls/hr Documented by: [id number] Levetiracetam (Keppra) 750 mg PO ONE ONE Stop: 08/12/19 21:11 Last Admin: 08/12/19 21:46 Dose: 750 mg Documented by: [id number] Metformin HCl (Glucophage) 1,000 mg PO ONE ONE Stop: 08/12/19 21:12 Last Admin: 08/12/19 21:50 Dose: 1,000 mg Documented by: [id number] Nystatin (Mycostatin) 1 appln EXT ONE ONE Stop: 08/12/19 21:05 Last Admin: 08/12/19 21:51 Dose: 1 appln Documented by: [id number] Discharge Plan Visit Data Chief Complaint: Cardiac Assessment Stated Complaint: syncope ED Provider: Bala Tabares Discharge Problem: Acute UTI, Hyperglycemia due to type 2 diabetes mellitus, Near syncope, Paroxysmal SVT (supraventricular tachycardia), Fall Patient Disposition: Admitted As Inpatient Condition: Good Forms Stand Alone Forms: [facility]Dexus Prescriptions Prescriptions: No Action losartan 50 mg Tablet 50 mg PO DAILY RF: 0 cetirizine 10 mg Tablet 10 mg PO HS RF: 0 metoprolol succinate 50 mg Tablet Extended Release 24 Hr 50 mg PO DAILY RF: 0 finasteride 5 mg Tablet 5 mg PO QDL RF: 0 escitalopram oxalate [Lexapro] 10 mg Tablet 10 mg PO DAILY RF: 0 levetiracetam [Keppra] 250 mg tablet 750 mg PO AMHS RF: 0 furosemide 40 mg tablet 40 mg PO QAM RF: 0 atorvastatin 40 mg tablet 40 mg PO HS RF: 0 glipizide 10 mg Tablet 10 mg PO BIDM RF: 0 levothyroxine 25 mcg tablet 25 mcg PO DAILYBB RF: 0 ferrous sulfate 325 mg (65 mg iron) tablet 325 mg PO TIDM RF: 0 metformin 1,000 mg tablet 1,000 mg PO BIDM RF: 0 folic acid 1 mg Tablet 1 mg PO DAILY RF: 0 aspirin 325 mg Tablet 325 mg PO DAILY RF: 0 ascorbic acid (vitamin C) 500 mg Tablet 1,000 mg PO BID RF: 0 acetaminophen 325 mg Tablet 650 mg PO TID PRN (Reason: mild pain 1-3 scale) RF: 0 famotidine 20 mg Tablet 20 mg PO BIDM RF: 0 docusate sodium 100 mg Tablet 100 mg PO BIDM RF: 0 Referrals Referrals: PT,DECLINED [Primary Care Provider] - Discharge Problem: Hyperglycemia due to type 2 diabetes mellitus Qualifiers: Diabetes mellitus intermediate accountant insulin use: without care home use Qualified Code(s): E11.65 - Type 2 diabetes mellitus with hyperglycemia Fall Qualifiers: Encounter type: initial encounter Qualified Code(s): W19.XXXA - Unspecified fall, initial encounter
[2019-08-12] MEDS ORDERED: ACETAMINOPHEN 325 MG TAB PO PRN (22:56)
[2019-08-13] MEDS ORDERED: cloNIDine HCL 0.1 MG TAB PO PRN (00:47)
[2019-08-13] MEDS ORDERED: DEXTROSE 50% 50 ML SYRINGE IV PRN (01:19)
[2019-08-13] MEDS ORDERED: GLUCOSE 40% GEL 15 GM TUBE PO PRN (01:19)
[2019-08-13] MEDS ORDERED: CARBOHYDRATES FOR HYPOGLYCEMIA PO PRN (01:19)
[2019-08-13] MEDS ORDERED: GLUCAGON FOR INJ 1 MG VIAL SQ PRN (01:19)
[2019-08-13] MEDS ORDERED: MAGNESIUM SULFATE / D5W 1 GM/100 ML BAG IV ONE (01:19)
[2019-08-13] MEDS ORDERED: GLUCOSE 10 TABS/TUBE PO PRN (01:19)
[2019-08-13] MEDS ORDERED: PHARMACY GLYCEMIC MGMT CONSULT PRN (01:34)
[2019-08-13] MEDS ORDERED: INSULIN GLARGINE SOLOSTAR 100 UNITS/ML 3 ML PEN SC ONE (02:00)
[2019-08-13] MEDS: INSULIN ASPART 100 UNITS/ML 3 ML PEN SC SCH ×5 (02:34→20:55)
[2019-08-13 04:07] LABS: Hematocrit (blood only) 33.2 % (42-52); Hemoglobin 10.9 g/dL (14.0-18.0); Mean Corpuscular Hemoglobin 28.2 pg (25-34); Mean Corpuscular Hgb Conc 32.8 g/dL (32-36); Mean Corpuscular Volume 85.8 fL (80-100); Mean Platelet Volume 9.1 fL (7.4-10.4); Platelet Count 256 K/uL (130-400); RDW Coefficient of Variation 14.6 % (11.5-14.5); RDW Standard Deviation 45.6 fL (36.4-46.3); Red Blood Count 3.87 M/uL (4.7-6.1); White Blood Count 8.83 K/uL (4.8-10.8)
[2019-08-13 04:24] LABS: Calcium 8.9 mg/dl (8.5-10.1); Est GFR (African American) 70.1; Est GFR (Non-African American) 60.5; Magnesium 1.9 mg/dl (1.8-2.4)
[2019-08-13 04:35] LABS: Troponin I 1.15 ng/ml (0-0.045)
[2019-08-13 06:23] LABS: Partial Thromboplastin Ratio 0.9; Partial Thromboplastin Time 26.1 Seconds (21.0-31.0)
[2019-08-13] MEDS: HEPARIN SOD 5,000 UNIT/0.5 ML VIAL SQ SCH ×3 (06:24→20:55)
[2019-08-13] MEDS: LEVOTHYROXINE SODIUM 25 MCG TABLET PO SCH (06:24)
[2019-08-13] MEDS: LOSARTAN POTASSIUM 50 MG TAB PO SCH (08:49)
[2019-08-13] MEDS: ASCORBIC ACID 500 MG TAB PO SCH ×2 (08:50→20:54)
[2019-08-13] MEDS: FERROUS SULFATE 325 MG TAB PO SCH ×3 (08:50→17:44)
[2019-08-13] MEDS: FAMOTIDINE 20 MG TAB PO SCH ×2 (08:50→17:45)
[2019-08-13] MEDS: FOLIC ACID 1 MG TAB PO SCH (08:50)
[2019-08-13] MEDS: levETIRAcetam 250 MG TAB PO SCH ×2 (08:51→20:53)
[2019-08-13] MEDS: METOPROLOL SUCC 50MG EXT REL TAB PO SCH (08:51)
[2019-08-13] MEDS: ASPIRIN 325 MG ECTAB PO SCH (08:51)
[2019-08-13] MEDS: DOCUSATE SODIUM 100 MG CAP PO SCH ×2 (08:51→17:44)
[2019-08-13] MEDS: ESCITALOPRAM OXALATE 10 MG TAB PO SCH (08:51)
[2019-08-13] MEDS ORDERED: SODIUM CHLORIDE 0.9% 1000ML 1,000 ML IV ONE (09:01)
[2019-08-13] MEDS ORDERED: SODIUM CHLORIDE 0.9% 500 ML IV ONE (09:15)
[2019-08-13] MEDS ORDERED: PERFLUTREN LIPID MICROSPHERE (DEFINITY) IV ONE (09:39)
--- NOTE | 2019-08-13 09:49 | Electrocardiogram Report ---
Test Reason : Blood Pressure : / mmHG Vent. Rate : 102 BPM Atrial Rate : 102 BPM P-R Int : 160 ms QRS Dur : 106 ms QT Int : 350 ms P-R-T Axes : 047 025 005 degrees QTc Int : 456 ms Sinus tachycardia Nonspecific T wave abnormality When compared with ECG of 21-FEB-2019 06:30, Inverted T waves have replaced nonspecific T wave abnormality in Inferior leads Confirmed by Horace Chen ([id number]) on 08/13/2019 9:49:42 AM Referred By: REFERRED SELF Confirmed By:Horace Chen
--- NOTE | 2019-08-13 10:09 | Electrocardiogram Report ---
Test Reason : Blood Pressure : / mmHG Vent. Rate : 079 BPM Atrial Rate : 079 BPM P-R Int : 156 ms QRS Dur : 096 ms QT Int : 394 ms P-R-T Axes : 015 051 036 degrees QTc Int : 451 ms Normal sinus rhythm Low voltage QRS Borderline ECG When compared with ECG of 12-AUG-2019 19:31, (unconfirmed) T wave inversion no longer evident in Inferior leads Confirmed by Horace Chen ([id number]) on 08/13/2019 10:09:25 AM Referred By: REFERRED SELF Confirmed By:Horace Chen
[2019-08-13 11:04] LABS: Estimated Average Glucose 177 mg/dl; Hemoglobin A1C 7.8 % (4.5-5.6)
--- NOTE | 2019-08-13 11:19 | Cardiology Consultation ---
Date of Consultation August 13, 2019 Assessment & Plan (1) Paroxysmal SVT (supraventricular tachycardia): Recurrent presumed SVT (pre hospital EKG unavailable) Type II NSTEMI, due to supply demand mismatch History of multivessel CAD, ischemic CM, LVEF ~35% 02/2019, with subtle interval improvement in LVEF noted at time of echocardiogram today. Plan: Continue current dose of metoprolol. Treat UTI. Increase activity as tolerated. History of Present Illness Attending Physician: Gagan Nolasco MD History of Present Illness Adrien Barrett is a 73 year old male seen in cardiology consultation per the request of Dr Robbins for the evaluation of SVT. He presented to the emergency department via EMS yesterday after having an episode of palpitations at home. He subsequently felt weak and fell back on a chair and he said that his heart was racing. This is been reported to the admission physician, however the patient was not able to describe this well for me today. Reportedly, EMS found him to be in narrow complex tachycardia suggestive of SVT. This had resolved spontaneously by the time he arrived to the emergency department and sinus tachycardia with minimally elevated rate was noted on EKG documented in the emergency room. Unfortunately, the EKG performed by the paramedics is not available for review. I looked for in his electronic chart, as well as his paper chart. Repeat EKG today revealed normal sinus rhythm. At the time my assessment, the patient was feeling well without cardiac complaints, and had just gone for a brief walk with occupational therapy utilizing a walker for support and had done well. Telemetry reveals sinus rhythm. I seen the patient in hospital consultation a few months ago in February 2019 after a similar episode of presumed SVT. This was diagnosed prehospital, and he received adenosine with subsequent conversion, the EKG was also not saved for review at the time of that presentation. His metoprolol had since been titrated. Other than the patient's in hospital consultation in February,, patient had most recently been seen by Dr Chowdhury of our cardiology practice in 2008. Progress notes describe a history of coronary heart disease. In 1998 the patient sustained an inferior wall myocardial infarction. He was sent for coronary angiography at that time and underwent coronary angiography. At that time he was found to have a 50% LAD lesion and a 90% distal LAD lesion. The circumflex coronary artery was 100% occluded after the first marginal branch. The right coronary had a 60% occlusion. Medical treatment was recommended. His history is otherwise notable for bilateral carotid disease with right carotid occlusion and stenting of the left carotid artery at [facility]. When he had been seen by the undersigned in February 2019 he was on dual antiplatelet therapy with aspirin and Brilinta. He has a prior history of stroke x2 in September 2018 and January 2019 with resultant debilitation and legal blindness. Allergies Allergy/AdvReac Type Severity Reaction Status Date / Time tramadol [From Ultram] Allergy Severe Seizure Verified 08/12/19 20:10 haloperidol [From Haldol] Allergy Unknown ON MED Verified 08/12/19 20:10 LIST FROM HOME Home Medications Home Medications Medication Instructions Recorded Confirmed Type acetaminophen 650 mg PO TID PRN 02/06/19 08/12/19 History ascorbic acid (vitamin C) 1,000 mg PO BID 02/06/19 08/12/19 History aspirin 325 mg PO DAILY 02/06/19 08/12/19 History atorvastatin 40 mg PO HS 02/06/19 08/12/19 History docusate sodium 100 mg PO BIDM 02/06/19 08/12/19 History famotidine 20 mg PO BIDM 02/06/19 08/12/19 History ferrous sulfate 325 mg PO TIDM 02/06/19 08/12/19 History folic acid 1 mg PO DAILY 02/06/19 08/12/19 History furosemide 40 mg PO QAM 02/06/19 08/12/19 History glipizide 10 mg PO BIDM 02/06/19 08/12/19 History levothyroxine 25 mcg PO DAILYBB 02/06/19 08/12/19 History metformin 1,000 mg PO BIDM 02/06/19 08/12/19 History cetirizine 10 mg PO HS 08/12/19 08/12/19 History escitalopram oxalate [Lexapro] 10 mg PO DAILY 08/12/19 08/12/19 History finasteride 5 mg PO QDL 08/12/19 08/12/19 History levetiracetam [Keppra] 750 mg PO AMHS 08/12/19 08/12/19 History losartan 50 mg PO DAILY 08/12/19 08/12/19 History metoprolol succinate 50 mg PO DAILY 08/12/19 08/12/19 History Patient History Social History Preferred Language: [place] Communication Ability: Effective Beliefs That Will Affect Care: None Current Living Situation: Spouse Current Living Situation Comment: live with Other Information That Helps Us Care for You: No Feels Safe at Home: Yes Safety Concerns: Feels Safe At This Time Smoking Status: Former smoker Smoking End Date: 1969 ; Hx Alcohol Use: No Hx Substance Use: No Physical Exam Physical Exam: Temp Pulse Resp BP Pulse Ox 36.6 C 77 18 154/75 H 97 08/13/19 15:26 08/13/19 16:00 08/13/19 15:26 08/13/19 15:26 08/13/19 16:00 Constitutional: WD/WN, vitals as above Respiratory: normal respiratory effort, lungs clear to auscultation Cardiovascular: RRR, no murmur, no edema Gastrointestinal (Abdomen): normal bowel sounds, soft, nontender, no hepatosplenomegaly Neurologic: Visual deficit, ambulatory with support, possible underlying cognitive impairment. Patient does not provide a great history. Results & Data ([facility]) Vital Signs (Past 12 Hours) Vital Signs Temp Pulse Pulse Resp BP BP Pulse Ox 08/13/19 11:00 36.4 C L 75 20 133/73 97 08/13/19 08:00 76 08/13/19 07:00 36.8 C 80 22 129/71 98 08/13/19 04:09 36.8 C 81 19 116/66 97 08/13/19 00:55 36.8 C 85 20 178/91 H 96 08/13/19 00:24 83 20 183/80 H 97 Laboratory Results Cardiac Enzymes 08/12/19 08/12/19 08/13/19 Range/Units 19:32 20:32 03:50 AST 31 (15-37) U/L Troponin I 0.023 1.150 H* (0-0.045) ng/ml 08/13/19 Range/Units 05:51 AST (15-37) U/L Troponin I 1.060 H* (0-0.045) ng/ml Coagulation 08/12/19 08/13/19 Range/Units 19:32 05:50 PT 10.4 (9.0-12.0) Seconds APTT 26.1 (21.0-31.0) Seconds CBC 08/12/19 08/13/19 Range/Units 19:32 03:50 WBC 9.38 8.83 (4.8-10.8) K/uL RBC 4.09 L 3.87 L (4.7-6.1) M/uL Hgb 11.5 L 10.9 L (14.0-18.0) g/dL Hct 35.4 L 33.2 L (42-52) % Plt Count 266 256 (130-400) K/uL Neut # (Auto) 5.05 (1.4-6.5) K/uL Lymph # (Auto) 3.48 H (1.2-3.4) K/uL [place] # (Auto) 0.67 H (0.11-0.59) K/uL Eos # (Auto) 0.12 (0-0.5) K/uL Baso # (Auto) 0.02 (0-0.2) K/uL Comprehensive Metabolic Panel 08/12/19 08/12/19 08/13/19 Range/Units 19:32 20:32 03:50 Sodium 132 L 139 D (136-145) mmol/L Potassium 4.2 4.0 (3.5-5.1) mmol/L Chloride 95 L 102 (98-107) mmol/L Carbon Dioxide 27 27 (21-32) mmol/L BUN 30 H 26 H (7-18) mg/dl Creatinine 1.41 H 1.20 (0.6-1.4) mg/dl Glucose 328 H* 130 H (70-99) mg/dl Calcium 9.2 8.9 (8.5-10.1) mg/dl AST 31 (15-37) U/L ALT 36 (12-78) U/L Alkaline Phosphatase 123 H (45-117) U/L Total Protein 7.7 (6.4-8.2) gm/dl Albumin 3.1 L (3.4-5.0) gm/dl Intake and Output 08/13/19 08/13/19 08/13/19 06:59 14:59 22:59 Intake Total 170 / 670 620 / 620 Output Total 400 / 400 300 / 300 Balance -230 / 270 320 / 320 Intake: IV 170 / 670 MAGNESIUM SULFATE / D5W 1 gm In 100 / 100 100 ml @ 50 mls/hr IV ONE ONE Rx#:[id number] ROCEPHIN 2,000 mg In 70 ml @ 70 / 70 140 mls/hr IV NOW STA Rx#: [id number] Oral 620 / 620 Output: Urine 400 / 400 300 / 300 Other: Other Intake Source sips Weight 121.3 kg Diagnostic Findings EKG performed 08/13/2019 at 7:32 AM reveals normal sinus rhythm at 79 bpm, compared to the prior, T wave inversion no longer evident in inferior leads, sinus tachycardia has resolved.
[2019-08-13] MEDS: FINASTERIDE 5 MG TAB PO SCH (12:10)
--- NOTE | 2019-08-13 14:31 | Pharmacy Report ---
Pharmacy Glycemic Short Note 2 - Date of Service August 13, 2019 - Glycemic Short BSG Results (Last 24 hours): 08/12/19 08/12/19 08/13/19 19:32 23:13 01:35 Glucose 328 H* POC Glucose 235 H 161 H 08/13/19 08/13/19 08/13/19 03:50 07:48 11:15 Glucose 130 H POC Glucose 119 H 160 H OUTPATIENT ANTIDIABETIC REGIMEN: * A1c = 6.7% (02/07/19) * glipizide 10 mg BID + metformin 1000 mg BID ASSESSMENT: * Adrien is a 73 yo T2DM male admitted with SVT, UTI, MARIELLE and hyperglycemia * He is well controlled as an outpatient on two oral anti-diabetic agents. Will hold these initially and initiate SQ basal + bolus insulin. * Lantus 20 units SQ was administered around 0200 * Will add a Lantus scale for bedtime * Utilize Novolog (based on weight stress 1-2) PLAN FOR INPATIENT GLYCEMIC CONTROL: * Hold outpatient oral diabetes medications * Basal insulin * Lantus 20 units SQ @ 0200 * Lantus 0-10 units SQ tonight (10 units if BSG is > 180 mg/dL) * Bolus insulin * NovoLog per scale ACHS or Q6hrs while NPO * Goal Range: Low 110 mg/dL - High 150 mg/dL * Correction Factor: 25 mg/dL/unit * Nutritional / Prandial insulin per carb ratio of 1 unit per 8 grams CHO consumed PLAN FOR DISCHARGE: * A1c of 6.7% indicates adequate outpatient glycemic control * Recommend continuation of home regimen unless patient reports frequent hypoglycemia
--- NOTE | 2019-08-13 14:58 | Hospitalist Progress Note ---
Date of Service August 13, 2019 Assessment & Plan (1) SVT (supraventricular tachycardia): Presumed Recurrent SVT Type II [place] Small loculated pericardial effusion Likely precipitated in setting of Infection --ECHO: mild concentric LVH. Large sized apical, septal, anteroseptal wall motion abnormality with akinesis of the segments. Left ventricle systolic function is mildly reduced. Ejection fraction 40 to 45%. Grade 1 diastolic dysfunction. There is small loculated pericardial effusion adjacent to the free wall of the right ventricle with fibrinous stranding suggesting small degree of chronicity. There is no echocardiographic indications of cardiac tamponade. --TSH:6.8; Free T4:1.03 --Monitor on telemetry, electrolytes and replete as needed --Continue metoprolol --Currently asymptomatic --Appreciate cardiology input --Received gentle IV fluids (2) UTI (urinary tract infection): Sepsis UTI H/O recurrent UTI Urine Cx: Gram-negative bacilli Blood cultures:pending Continue Rocephin Day #2 Received gentle IV fluids given H/O heart failure (3) Ischemic cardiomyopathy: (4) CAD (coronary artery disease): Denies any chest pain Continue aspirin, statin, metoprolol (5) History of left common carotid artery stent placement: Continue aspirin and statin (6) Seizure: Continue Keppra Seizure precautions (7) CVA (cerebrovascular accident): CT head showed no acute intracranial abnormality. Continue aspirin, statin (8) Hypertension: Continue Losartan, Metoprolol Monitor (9) Diabetes: HbA1c 7.8 Hold PO meds Continue lantus and novolog sliding scale Pharmacy for glycemic management Monitor BSs (10) Hypomagnesemia: Continue monitor electrolytes Replete as needed (11) MARIELLE (acute kidney injury): Baseline Cr:~1 Lasix held May need to hold losartan if renal function worsens Received IV fluids Cr:1.20 today (12) Fall: Imaging showed no fracture Fall precautions PT/OT DVT Px Heparin SQ CODE STATUS FULL CODE Disposition: PT/OT prior to discharge Admission and Anticipated Discharge Date Admission Date: August 12, 2019 Subjective Patient is seen and examined at bedside States dizziness resolved Denies any chest pain, shortness of breath, nausea, abdominal pain, dysuria, hematuria Offers no other complaints Currently in sinus Review of Systems Review of Systems: All systems reviewed & are unremarkable except as noted in HPI & below Physical Exam Physical Exam: Physical Exam: Vitals signs as noted above General Appearance:Obese, no apparent distress Head: normocephalic, Atraumatic Eyes: normal inspection, EOMI Neck: supple, Trachea midline Respiratory/Chest: Normal breath sounds, CTA, No accessory muscle use Cardiovascular: S1, S2, No murmur Abdomen/GI:Soft, Non tender, Bowel sounds present Extremities/Musculoskelatal:normal inspection, Trace edema Neurologic/Psych:AAOX3, Chronic RUE weakness due to CVA Skin: normal color, warm Results & Data Results & Data ([facility]) Vital Signs (Past 12 Hours) Vital Signs Temp Pulse Pulse Resp BP Pulse Ox 08/13/19 11:00 36.4 C L 75 20 133/73 97 08/13/19 08:00 76 08/13/19 07:00 36.8 C 80 22 129/71 98 08/13/19 04:09 36.8 C 81 19 116/66 97 Laboratory Results Short CBC 08/12/19 08/13/19 Range/Units 19:32 03:50 WBC 9.38 8.83 (4.8-10.8) K/uL Hgb 11.5 L 10.9 L (14.0-18.0) g/dL Hct 35.4 L 33.2 L (42-52) % Plt Count 266 256 (130-400) K/uL BMP 08/12/19 08/12/19 08/13/19 19:32 20:32 03:50 Sodium 132 L 139 D Potassium 4.2 4.0 Chloride 95 L 102 Carbon Dioxide 27 27 BUN 30 H 26 H Creatinine 1.41 H 1.20 Glucose 328 H* 130 H Calcium 9.2 8.9 Cardiac Enzymes 08/12/19 08/13/19 08/13/19 Range/Units 19:32 03:50 05:51 Troponin I 0.023 1.150 H* 1.060 H* (0-0.045) ng/ml Liver Function 08/12/19 08/12/19 Range/Units 19:32 20:32 Total Bilirubin 0.3 (0.2-1) mg/dl AST 31 (15-37) U/L ALT 36 (12-78) U/L Alkaline Phosphatase 123 H (45-117) U/L Albumin 3.1 L (3.4-5.0) gm/dl Urine 08/12/19 Range/Units 20:30 Urine Color Yellow Urine Appearance Cloudy A (Clear) Urine pH 5.0 (4.5-7.5) Ur Specific [place] 1.019 (1.000-1.030) Urine Protein 1+ H (Negative) Urine Glucose (UA) Trace H (Negative) (1) CVA (cerebrovascular accident) CVA mechanism: unspecified Qualified Code(s): I63.9 - Cerebral infarction, unspecified (2) Fall Encounter type: initial encounter Qualified Code(s): W19.XXXA - Unspecified fall, initial encounter
[2019-08-13] MEDS: INSULIN GLARGINE SOLOSTAR 100 UNITS/ML 3 ML PEN SC SCH (20:55)
[2019-08-13] MEDS ORDERED: ATORVASTATIN 40 MG TAB PO SCH (21:00)
[2019-08-13] MEDS ORDERED: CETIRIZINE HCL 10 MG TABLET PO SCH (21:00)
[2019-08-13] MEDS: cefTRIAXone SODIUM 2,000 MG in DEXTROSE 5% 50 ML IV SCH (23:02)
[2019-08-14] MEDS: HEPARIN SOD 5,000 UNIT/0.5 ML VIAL SQ SCH ×2 (06:11→13:59)
[2019-08-14] MEDS: LEVOTHYROXINE SODIUM 25 MCG TABLET PO SCH (06:11)
[2019-08-14 07:01] LABS: Hematocrit (blood only) 34.2 % (42-52); Hemoglobin 11.3 g/dL (14.0-18.0); Mean Corpuscular Hemoglobin 28.6 pg (25-34); Mean Corpuscular Volume 86.6 fL (80-100); Mean Platelet Volume 9.5 fL (7.4-10.4); Platelet Count 261 K/uL (130-400); RDW Coefficient of Variation 14.8 % (11.5-14.5); RDW Standard Deviation 47.2 fL (36.4-46.3); Red Blood Count 3.95 M/uL (4.7-6.1); White Blood Count 6.73 K/uL (4.8-10.8)
[2019-08-14 07:32] LABS: BUN Creatinine Ratio 19.3 (10-20); Calcium 8.8 mg/dl (8.5-10.1); Creatinine Clr Calc Pharmacy 83.8 ml/min; Est GFR (African American) 77.9; Est GFR (Non-African American) 67.2; Magnesium 1.9 mg/dl (1.8-2.4); Potassium 4.4 mmol/L (3.5-5.1)
[2019-08-14] MEDS: INSULIN ASPART 100 UNITS/ML 3 ML PEN SC SCH ×2 (08:20→12:03)
[2019-08-14] MEDS: INSULIN GLARGINE SOLOSTAR 100 UNITS/ML 3 ML PEN SC SCH (08:21)
[2019-08-14] MEDS: FAMOTIDINE 20 MG TAB PO SCH (08:23)
[2019-08-14] MEDS: METOPROLOL SUCC 50MG EXT REL TAB PO SCH (08:23)
[2019-08-14] MEDS: FERROUS SULFATE 325 MG TAB PO SCH ×2 (08:23→12:04)
[2019-08-14] MEDS: ASPIRIN 325 MG ECTAB PO SCH (08:23)
[2019-08-14] MEDS: DOCUSATE SODIUM 100 MG CAP PO SCH (08:23)
[2019-08-14] MEDS: ESCITALOPRAM OXALATE 10 MG TAB PO SCH (08:24)
[2019-08-14] MEDS: ASCORBIC ACID 500 MG TAB PO SCH (08:24)
[2019-08-14] MEDS: LOSARTAN POTASSIUM 50 MG TAB PO SCH (08:24)
[2019-08-14] MEDS: FOLIC ACID 1 MG TAB PO SCH (08:24)
[2019-08-14] MEDS: levETIRAcetam 250 MG TAB PO SCH (08:24)
--- NOTE | 2019-08-14 11:15 | Cardiology Progress Note ---
Date of Service August 14, 2019 Assessment & Plan (1) Paroxysmal SVT (supraventricular tachycardia): Recurrent presumed SVT (pre hospital EKG unavailable) Type II NSTEMI, due to supply demand mismatch History of multivessel CAD, ischemic CM, LVEF ~35% 02/2019, with subtle interval improvement in LVEF noted at time of echocardiogram today. Plan: Continue current dose of metoprolol. Treat UTI. Increase activity as tolerated. (2) Ischemic cardiomyopathy: I reviewed the patient's telemetry and he has had no additional cardiac arrhythmias for the past 24 hours. He is clinically stable and wants to be discharged. I think that is appropriate at this time. He can be discharged per the hospitalist service. Subjective No new complaints today. Review of Systems Review of Systems: All systems reviewed & are unremarkable except as noted in HPI & below Nothing additional to add. Physical Exam Physical Exam: General: no acute distress and stated age Head: normocephalic, no masses, lesions, tenderness or abnormalities Eyes: conjunctiva are pink and non-injected, sclera clear Neck: supple, no adenopathy, no bruits, normal jugular venous pulse, no hepatojugular reflux Chest: normal shape and normal respiratory effort Lungs: clear to auscultation and percussion Cardiac Exam: - regular rate & rhythm, no murmurs gallops or rubs - normal S1, normal S2 Pulses: 2(+) throughout Abdomen: abdomen soft, non-tender, no abnormal masses and no hepatosplenomegaly Musculoskeletal: no gait disturbance, no joint inflammation, no deforming arthritis Extremities: no edema and no cyanosis Neuro: grossly normal exam Results & Data Vital Signs (Past 12 Hours) Vital Signs Temp Pulse Pulse Resp BP Pulse Ox 08/14/19 08:00 77 08/14/19 07:25 36.5 C 77 19 133/75 95 08/14/19 03:20 36.5 C 74 19 121/63 96 08/13/19 23:15 36.6 C 73 19 128/74 96 Laboratory Results Laboratory Results - last 24 hr 08/13/19 08/13/19 08/13/19 11:15 16:47 20:30 WBC RBC Hgb Hct MCV MCH MCHC RDW Std Deviation RDW Coeff of Marva Plt Count MPV Sodium Potassium Chloride Carbon Dioxide Anion Gap BUN Creatinine Est Cr Clr Drug Dosing Est GFR ( Amer) Est GFR (Non-Af Amer) BUN/Creatinine Ratio Glucose POC Glucose 160 H 111 H 118 H Calcium Magnesium Iron 08/14/19 08/14/19 08/14/19 06:17 06:17 07:42 WBC 6.73 RBC 3.95 L Hgb 11.3 L Hct 34.2 L MCV 86.6 MCH 28.6 MCHC 33.0 RDW Std Deviation 47.2 H RDW Coeff of Marva 14.8 H Plt Count 261 MPV 9.5 Sodium 137 Potassium 4.4 Chloride 104 Carbon Dioxide 27 Anion Gap 6.0 BUN 21 H Creatinine 1.10 Est Cr Clr Drug Dosing 83.8 Est GFR ( Amer) 77.9 Est GFR (Non-Af Amer) 67.2 BUN/Creatinine Ratio 19.3 Glucose 122 H POC Glucose 127 H Calcium 8.8 Magnesium 1.9 Iron 61 Medications Administered Current Inpatient Medications Acetaminophen (Tylenol) 650 mg PO TID PRN PRN Reason: mild pain 1-3 scale Stop: 09/11/19 22:55 Ascorbic Acid (Vitamin C) 1,000 mg PO BID [facility] Stop: 09/12/19 08:59 Last Admin: 08/14/19 08:24 Dose: 1,000 mg Documented by: Aspirin (Ecotrin) 325 mg PO DAILY [facility] Stop: 09/12/19 08:59 Last Admin: 08/14/19 08:23 Dose: 325 mg Documented by: Atorvastatin Calcium (Lipitor) 40 mg PO [facility] Stop: 09/12/19 20:59 Last Admin: 08/13/19 20:53 Dose: 40 mg Documented by: Cetirizine HCl (Zyrtec) 10 mg PO HS [facility] Stop: 09/12/19 20:59 Last Admin: 08/13/19 20:54 Dose: 10 mg Documented by: Clonidine HCl (Catapres) 0.1 mg PO Q8H PRN PRN Reason: for SBP above 170 Stop: 09/12/19 00:46 Dextrose (Dextrose 50%) 25 - 50 ml IV UD PRN; Protocol PRN Reason: Hypoglycemia Protocol Stop: 09/12/19 01:18 Docusate Sodium (Colace) 100 mg PO BIDM [facility] Stop: 09/12/19 07:59 Last Admin: 08/14/19 08:23 Dose: 100 mg Documented by: Escitalopram Oxalate (Lexapro Tab) 10 mg PO DAILY [facility] Stop: 09/12/19 08:59 Last Admin: 08/14/19 08:24 Dose: 10 mg Documented by: Famotidine (Pepcid) 20 mg PO BIDM [facility] Stop: 09/12/19 07:59 Last Admin: 08/14/19 08:23 Dose: 20 mg Documented by: Ferrous Sulfate (Feosol) 325 mg PO TIDM [facility] Stop: 09/12/19 07:59 Last Admin: 08/14/19 08:23 Dose: 325 mg Documented by: Finasteride (Proscar) 5 mg PO QDL [facility] Stop: 09/12/19 11:29 Last Admin: 08/13/19 12:10 Dose: 5 mg Documented by: Folic Acid (Folvite) 1 mg PO DAILY [facility] Stop: 09/12/19 08:59 Last Admin: 08/14/19 08:24 Dose: 1 mg Documented by: Glucagon (Glucagen) 1 mg SQ UD PRN; Protocol PRN Reason: Hypoglycemia Protocol Stop: 09/12/19 01:18 Glucose (Dex4 Glucose) 4 - 8 tabs PO UD PRN; Protocol PRN Reason: Hypoglycemia Protocol Stop: 09/12/19 01:18 Glucose (Glucose 40%) 15 - 30 gm PO UD PRN; Protocol PRN Reason: Hypoglycemia Protocol Stop: 09/12/19 01:18 Heparin Sodium (Porcine) (Heparin Sodium (Porcine)) 5,000 units SQ Q8 [facility] Stop: 09/12/19 05:59 Last Admin: 08/14/19 06:11 Dose: 5,000 units Documented by: Ceftriaxone Sodium 2,000 mg/ (Dextrose) 70 mls @ 100 mls/hr IV Q24H [facility]; Protocol Stop: 08/22/19 21:59 Last Infusion: 08/13/19 23:45 Dose: Infused Documented by: Insulin Aspart (Novolog Flexpen) 0 units SC ACHS [facility]; Protocol Stop: 09/12/19 01:59 Last Admin: 08/14/19 08:20 Dose: 6 units Documented by: Insulin Glargine (Lantus Solostar Pen) 0 units SC BID [facility]; Protocol Stop: 09/12/19 20:59 Last Admin: 08/14/19 08:21 Dose: Not Given Documented by: Levetiracetam (Keppra) 750 mg PO BID [facility] Stop: 09/12/19 08:59 Last Admin: 08/14/19 08:24 Dose: 750 mg Documented by: Levothyroxine Sodium (Synthroid) 25 mcg PO DAILYBB [facility] Stop: 09/12/19 06:29 Last Admin: 08/14/19 06:11 Dose: 25 mcg Documented by: Losartan Potassium (Cozaar) 50 mg PO DAILY [facility] Stop: 09/12/19 08:59 Last Admin: 08/14/19 08:24 Dose: 50 mg Documented by: Metoprolol Succinate (Toprol Xl) 50 mg PO DAILY [facility] Stop: 09/12/19 08:59 Last Admin: 08/14/19 08:23 Dose: 50 mg Documented by: Miscellaneous (Carbohydrates For Hypoglycemia) 15 - 30 gm PO UD PRN PRN Reason: Hypoglycemia Protocol Stop: 09/12/19 01:18 Miscellaneous Information (Consult Glycemic Management Pharmacy) 1 ea N/A UD PRN PRN Reason: Consult Stop: 09/12/19 01:33
[2019-08-14] MEDS: FINASTERIDE 5 MG TAB PO SCH (12:04)
--- NOTE | 2019-08-14 12:41 | Hospitalist Progress Note ---
Date of Service August 14, 2019 Assessment & Plan (1) SVT (supraventricular tachycardia): Presumed Recurrent SVT Type II [place] Small loculated pericardial effusion Likely precipitated in setting of Infection --ECHO: mild concentric LVH. Large sized apical, septal, anteroseptal wall motion abnormality with akinesis of the segments. Left ventricle systolic function is mildly reduced. Ejection fraction 40 to 45%. Grade 1 diastolic dysfunction. There is small loculated pericardial effusion adjacent to the free wall of the right ventricle with fibrinous stranding suggesting small degree of chronicity. There is no echocardiographic indications of cardiac tamponade. --TSH:6.8; Free T4:1.03 --Monitor on telemetry, electrolytes and replete as needed --Continue metoprolol 50mg daily --Currently asymptomatic --Appreciate cardiology input --Received gentle IV fluids --No recurrence of tachycardia (2) UTI (urinary tract infection): Sepsis UTI H/O recurrent UTI Urine Cx: E.Coli Blood cultures:pending Continue Rocephin Day #2 Received gentle IV fluids given H/O heart failure Plan to discharge on p.o. antibiotics (3) Ischemic cardiomyopathy: (4) CAD (coronary artery disease): Denies any chest pain Continue aspirin, statin, metoprolol (5) History of left common carotid artery stent placement: Continue aspirin and statin (6) Seizure: Continue Keppra Seizure precautions (7) CVA (cerebrovascular accident): CT head showed no acute intracranial abnormality. Continue aspirin, statin (8) Hypertension: Continue Losartan, Metoprolol Monitor (9) Diabetes: HbA1c 7.8 Hold PO meds Continue lantus and novolog sliding scale Pharmacy for glycemic management Monitor BSs (10) Hypomagnesemia: Continue monitor electrolytes Replete as needed (11) MARIELLE (acute kidney injury): Baseline Cr:~1 Lasix held May need to hold losartan if renal function worsens Received IV fluids Cr:1.1 today (12) Fall: Imaging showed no fracture Fall precautions PT/OT DVT Px Heparin SQ CODE STATUS FULL CODE Disposition: PT/OT :Recommends to return Home Admission and Anticipated Discharge Date Admission Date: August 12, 2019 Subjective Patient is seen and examined at bedside Doing well today Offers no complaints Eager to get discharged Denies any chest pain, shortness of breath, nausea, abdominal pain, dysuria, h ematuria Discussed with Cardiology today Review of Systems Review of Systems: All systems reviewed & are unremarkable except as noted in HPI & below Physical Exam Physical Exam: Physical Exam: Vitals signs as noted above General Appearance:Obese, no apparent distress Head: normocephalic, Atraumatic Eyes: normal inspection, EOMI Neck: supple, Trachea midline Respiratory/Chest: Normal breath sounds, CTA, No accessory muscle use Cardiovascular: S1, S2, No murmur Abdomen/GI:Soft, Non tender, Bowel sounds present Extremities/Musculoskelatal:normal inspection, Trace edema Neurologic/Psych:AAOX3, Chronic RUE weakness due to CVA Skin: normal color, warm Results & Data Results & Data ([facility]) Vital Signs (Past 12 Hours) Vital Signs Temp Pulse Pulse Resp BP Pulse Ox 08/14/19 11:51 36.5 C 69 19 134/78 96 08/14/19 08:00 77 08/14/19 07:25 36.5 C 77 19 133/75 95 08/14/19 03:20 36.5 C 74 19 121/63 96 Laboratory Results Short CBC 08/14/19 Range/Units 06:17 WBC 6.73 (4.8-10.8) K/uL Hgb 11.3 L (14.0-18.0) g/dL Hct 34.2 L (42-52) % Plt Count 261 (130-400) K/uL BMP 08/14/19 06:17 Sodium 137 Potassium 4.4 Chloride 104 Carbon Dioxide 27 BUN 21 H Creatinine 1.10 Glucose 122 H Calcium 8.8 (1) CVA (cerebrovascular accident) CVA mechanism: unspecified Qualified Code(s): I63.9 - Cerebral infarction, unspecified (2) Fall Encounter type: initial encounter Qualified Code(s): W19.XXXA - Unspecified fall, initial encounter
[2019-08-14] MEDS ORDERED: cefTRIAXone SODIUM 2,000 MG in DEXTROSE 5% 50 ML IV SCH (12:55)
--- NOTE | 2019-08-14 13:03 | Discharge Summary ---
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 Pt said that he was sitting on the cough when he tried to get up to use the bathroom, his legs felt weak and fell back on the chair. He said that he felt his heart was racing. His check his vitals, his BP was low and his HR was above 150's. called 911 and when the EMS came he had an EKG that showed SVT. Pt said that he did not have any chest pain, dizziness and SOB. Pt said that he had episode of palpitation in the past few months ago. I spoke to the and she confirmed that patient did not lose consciousness or have any seizure. He fell on the stretcher coming out of the ambulance in the driveway onto his right side striking his elbow and his head. Denies any nausea, vomiting, fever, recent traveling or any expose to anyone positive with Covid-19 Admission Exam Per Admitting Provider Physical Exam Physical Exam: General- No acute distress Head- atraumatic Eyes- Blindness ENT- oropharynx clear Neck- supple, no JVD Lungs- clear to auscultation Heart- +tachycardia Abdomen- normal bowel sounds, soft, nontender Extremities- no calf tenderness, +trace edema Neuro- alert, oriented x 3; PERRL, EOMI; no facial palsy; no dysarthria Skin- warm & dry, bruises in right elbow Principal Diagnosis Urinary tract infection Presumed recurrent supraventricular tachycardia Discharge Data Allergies Allergy/AdvReac Type Severity Reaction Status Date / Time tramadol [From Ultram] Allergy Severe Seizure Verified 08/12/19 20:10 haloperidol [From Haldol] Allergy Unknown ON MED Verified 08/12/19 20:10 LIST FROM HOME Consultations 08/12/19 21:25 ED Decision to Admit Stat 08/13/19 07:00 Consult Cardiology Routine Procedures Performed --ECHO: mild concentric LVH. Large sized apical, septal, anteroseptal wall motion abnormality with akinesis of the segments. Left ventricle systolic function is mildly reduced. Ejection fraction 40 to 45%. Grade 1 diastolic dysfunction. There is small loculated pericardial effusion adjacent to the free wall of the right ventricle with fibrinous stranding suggesting small degree of chronicity. There is no echocardiographic indications of cardiac tamponade. Ordered Studies 08/12/19 19:50 CT cervical spine wo con Stat CT head/brain wo con Stat Hospital Course (1) SVT (supraventricular tachycardia): Presumed Recurrent SVT Type II [place] Small loculated pericardial effusion Likely precipitated in setting of Infection --ECHO: mild concentric LVH. Large sized apical, septal, anteroseptal wall motion abnormality with akinesis of the segments. Left ventricle systolic function is mildly reduced. Ejection fraction 40 to 45%. Grade 1 diastolic dysfunction. There is small loculated pericardial effusion adjacent to the free wall of the right ventricle with fibrinous stranding suggesting small degree of chronicity. There is no echocardiographic indications of cardiac tamponade. --TSH:6.8; Free T4:1.03 --Monitor on telemetry, electrolytes and replete as needed --Continue metoprolol 50mg daily --Currently asymptomatic --Appreciate cardiology input --Received gentle IV fluids --No recurrence of tachycardia --Zio Patch as outpatient (2) UTI (urinary tract infection): Sepsis UTI H/O recurrent UTI Urine Cx: E.Coli Blood cultures:pending Continue Rocephin Day #2 Received gentle IV fluids given H/O heart failure Plan to discharge on p.o. antibiotics (3) Ischemic cardiomyopathy: (4) CAD (coronary artery disease): Denies any chest pain Continue aspirin, statin, metoprolol (5) History of left common carotid artery stent placement: Continue aspirin and statin (6) Seizure: Continue Keppra Seizure precautions (7) CVA (cerebrovascular accident): CT head showed no acute intracranial abnormality. Continue aspirin, statin (8) Hypertension: Continue Losartan, Metoprolol Monitor (9) Diabetes: HbA1c 7.8 Hold PO meds Continue lantus and novolog sliding scale Pharmacy for glycemic management Monitor BSs (10) Hypomagnesemia: Continue monitor electrolytes Replete as needed (11) MARIELLE (acute kidney injury): Baseline Cr:~1 Lasix held May need to hold losartan if renal function worsens Received IV fluids Cr:1.1 today (12) Fall: Imaging showed no fracture Fall precautions PT/OT DVT Px Heparin SQ CODE STATUS FULL CODE Disposition: PT/OT :Recommends to return Home Total Time Total Time Spent Total Time Spent (In Minutes): 38 minutes Total Time Includes: Examination of the Patient, Discharge Planning, Medication Reconciliation, Communication With Other Providers and Other Discharge Plan Discharge Items Patient Disposition: Home - Self-Care Reason For Visit: SVT Discharge Diagnosis: Urinary tract infection Presumed recurrent supraventricular tachycardia Condition on Discharge: Good Activity: Resume your previous activity Exercise/Sports: Gradually increase as tolerated Non-emergency contact: Primary Care Provider Call non-emergency contact if: you have any medication questions, your symptoms worsen, your pain is not controlled, your pain is worsening, your pain is unusual for you, your pain is concerning for you and you have a fever Follow-up/Referrals: PT,DECLINED [Primary Care Provider] - Diet: Carb Consistent or DM2 and Heart Healthy Addtl Attending Provider Instructions: Follow-up with your primary care physician in 1 week Follow-up with your transition specialist Dr. Miranda as needed. Get Event monitor (ZIO Patch) arranged by your PCP/Cardiology for further evaluation of your Heart Rate. Your final blood cultures are pending at the time of discharge. Follow-up with your physician for results. Complete the antibiotic course as prescribed for your urinary tract infection. Start taking antibiotic (Cefdinir)300mg Twice a day from August 15, 2019 Seek immediate medical attention if your symptoms reoccur or worsen Pending Studies at Discharge: Yes Studies:: Blood Cultures Stand-Alone Forms: My [facility] All My Data, Smoking Cessation Medications and DC Order Prescriptions: New cefdinir 300 mg capsule 300 mg PO BID 5 Days Qty: 10 RF: 0 Continued losartan 50 mg Tablet 50 mg PO DAILY RF: 0 cetirizine 10 mg Tablet 10 mg PO HS RF: 0 metoprolol succinate 50 mg Tablet Extended Release 24 Hr 50 mg PO DAILY RF: 0 finasteride 5 mg Tablet 5 mg PO QDL RF: 0 escitalopram oxalate [Lexapro] 10 mg Tablet 10 mg PO DAILY RF: 0 levetiracetam [Keppra] 250 mg tablet 750 mg PO AMHS RF: 0 furosemide 40 mg tablet 40 mg PO QAM RF: 0 atorvastatin 40 mg tablet 40 mg PO HS RF: 0 glipizide 10 mg Tablet 10 mg PO BIDM RF: 0 levothyroxine 25 mcg tablet 25 mcg PO DAILYBB RF: 0 ferrous sulfate 325 mg (65 mg iron) tablet 325 mg PO TIDM RF: 0 metformin 1,000 mg tablet 1,000 mg PO BIDM RF: 0 folic acid 1 mg Tablet 1 mg PO DAILY RF: 0 aspirin 325 mg Tablet 325 mg PO DAILY RF: 0 ascorbic acid (vitamin C) 500 mg Tablet 1,000 mg PO BID RF: 0 acetaminophen 325 mg Tablet 650 mg PO TID PRN (Reason: mild pain 1-3 scale) RF: 0 famotidine 20 mg Tablet 20 mg PO BIDM RF: 0 docusate sodium 100 mg Tablet 100 mg PO BIDM RF: 0 Discharge Orders: Discharge Order (Routine); Ordered 08/14/19 Ordered By: Gagan Nolasco Admission Data Admit Date/Time: 08/12/19 22:36 Attending Provider: Gagan Nolasco Admit Provider: Cris Sears Primary Care Provider: JAISON IRELAND Other Providers: Tavon Farley ; Adrien Miranda Other Interventions: Discharge Summary Assessment (RN) Last Done: 08/14/19 14:00 DC Date/Time DO NOT enter until pt leaves facility: 08/14/19 17:00
[2019-08-14] MEDS: cefTRIAXone SODIUM 2,000 MG in DEXTROSE 5% 50 ML IV SCH (14:00)
== END 2019-08-14 17:00 | disposition home or self-care (01) | DRG 309 ==
LOC: ED 19:22 → SUATTDRO 22:36 → 2S 22:36

== ENCOUNTER 2019-08-29 14:17 | Inpatient (IN) ==
[2019-08-29] MEDS ORDERED: ADENOSINE IV SOLN 3 MG/ML 2 ML VIAL IV ONE (14:28)
[2019-08-29 14:51] LABS: Basophils # (auto) 0.03 K/uL (0-0.2); Basophils % (auto) 0.3 %; Eosinophils # (auto) 0.11 K/uL (0-0.5); Eosinophils % (auto) 1.1 %; Hematocrit (blood only) 35.7 % (42-52); Hemoglobin 11.7 g/dL (14.0-18.0); Immature Granulocytes # (auto) 0.02 K/uL (0.00-0.02); Immature Granulocytes % (auto) 0.2 %; Lymphocytes # (auto) 3.33 K/uL (1.2-3.4); Lymphocytes % (auto) 34.2 %; Mean Corpuscular Hemoglobin 28.5 pg (25-34); Mean Corpuscular Hgb Conc 32.8 g/dL (32-36); Mean Corpuscular Volume 87.1 fL (80-100); Mean Platelet Volume 9.6 fL (7.4-10.4); Monocytes # (auto) 0.68 K/uL (0.11-0.59); Neutrophils # (auto) 5.56 K/uL (1.4-6.5); Neutrophils % (auto) 57.2 %; Platelet Count 295 K/uL (130-400); RDW Coefficient of Variation 14.9 % (11.5-14.5); White Blood Count 9.73 K/uL (4.8-10.8)
--- NOTE | 2019-08-29 14:55 | XRay Report ---
XR chest 1V portable CLINICAL HISTORY: Atypical chest pain COMPARISON STUDY: 08/09/2019 FINDINGS: The heart is enlarged. There is an electronic device projected over the left hemithorax. Th ere are postsurgical changes of posterior spinal rods. There is no overt failure. There is no lobar c onsolidation. There is stable blunting of the left cardiophrenic angle.[There is a chronic left AC gerard int separation. IMPRESSION: No significant change from the preceding study. No acute findings ACT 112: Negative or not required by law. Electronically signed by: Marco Navarrete M.D. 08/29/2019 2:54 PM
[2019-08-29 14:56] LABS: iSTAT Creatinine 1.2 mg/dl (0.6-1.3); iSTAT Hemoglobin 11.9 g/dl (14.0-18.0); iSTAT Ionized Calcium 1.2 mmol/l (1.12-1.32); iSTAT Potassium 5.1 mmol/L (3.3-5.0)
[2019-08-29 15:02] LABS: Partial Thromboplastin Ratio 0.9; Partial Thromboplastin Time 26.5 Seconds (21.0-31.0); Prothrombin Time 10.5 Seconds (9.0-12.0)
[2019-08-29 15:12] LABS: Appearance Urine Clear (Clear); Bilirubin Urine Negative (Negative); Blood Urine Negative (Negative); Color Urine Yellow; Glucose Urine UA Negative (Negative); Ketones Urine Negative (Negative); Leukocyte Esterase Urine Negative (Negative); Nitrite Urine Negative (Negative); Protein Urine Negative (Negative); Specific Gravity Urine 1.012 (1.000-1.030); Urobilinogen Urine Negative (Negative)
[2019-08-29 15:14] LABS: Albumin Level 3.3 gm/dl (3.4-5.0); BUN Creatinine Ratio 20.1 (10-20); Creatinine Clr Calc Pharmacy 68.3 ml/min; Est GFR (African American) 59.7; Est GFR (Non-African American) 51.5; Magnesium 1.8 mg/dl (1.8-2.4); Potassium 5.1 mmol/L (3.5-5.1)
[2019-08-29 15:22] LABS: Albumin Globulin Ratio 0.7 (0.9-2); Bilirubin,Total 0.3 mg/dl (0.2-1); Total Protein 8.3 gm/dl (6.4-8.2); Troponin I 0.052 ng/ml (0-0.045)
--- NOTE | 2019-08-29 15:33 | Emergency Department Note ---
History of Present Illness General Chief complaint: Tachycardia Stated complaint: WEAKNESS, TACHYCARDIA Time Seen by Provider: 08/29/19 14:26 History of Present Illness Provider complaint: Palpitations Onset (ago): day(s) 1 Location: chest Current Pain Intensity: 0 73-year-old male presents emergency department with palpitations weakness. Patient reports his symptoms began today while he was at his senior care. He did stated that he took all of his home medications. He denies any chest pain or difficulty breathing. He denies any hemoptysis or fevers. No dysuria. Home Medications Home Medications Medication Instructions Recorded Confirmed Type acetaminophen 650 mg PO Q4H PRN MDD 10 02/06/19 08/29/19 History TABLETS/DAILY ascorbic acid (vitamin C) 1,000 mg PO BID 02/06/19 08/29/19 History aspirin 325 mg PO QAM 02/06/19 08/29/19 History atorvastatin 40 mg PO HS 02/06/19 08/29/19 History famotidine 20 mg PO BIDM 02/06/19 08/29/19 History folic acid 1 mg PO QAM 02/06/19 08/29/19 History furosemide 40 mg PO QAM 02/06/19 08/29/19 History glipizide 10 mg PO BIDM 02/06/19 08/29/19 History levothyroxine 25 mcg PO DAILYBB 02/06/19 08/29/19 History metformin 1,000 mg PO QAM 02/06/19 08/29/19 History cetirizine 10 mg PO HS 08/12/19 08/29/19 History escitalopram oxalate [Lexapro] 10 mg PO QAM 08/12/19 08/29/19 History finasteride 5 mg PO QDL 08/12/19 08/29/19 History losartan 50 mg PO QAM 08/12/19 08/29/19 History metoprolol succinate 50 mg PO QAM 08/12/19 08/29/19 History levetiracetam 750 mg PO Q12H 08/29/19 08/29/19 History metformin 500 mg PO QPM 08/29/19 08/29/19 History Allergies Allergy/AdvReac Type Severity Reaction Status Date / Time tramadol [From Ultram] Allergy Severe Seizure Verified 08/29/19 16:14 haloperidol [From Haldol] Allergy Unknown Unknown Verified 08/29/19 16:14 Past Med/Surg History Medical History Acute respiratory failure with hypoxia MARIELLE (acute kidney injury) Anemia CAD (coronary artery disease) Carotid artery occlusion Cerebral hypoperfusion CHF (congestive heart failure) CVA (cerebral vascular accident) CVA (cerebrovascular accident) (Acute) Diabetes GERD (gastroesophageal reflux disease) History of common carotid artery stent placement HLD (hyperlipidemia) Hypertension Hypomagnesemia Ischemic cardiomyopathy Paroxysmal SVT (supraventricular tachycardia) (Acute) Pulmonary edema Seizure (Acute) UTI (urinary tract infection) Family History Other No pertinent family history in first degree relatives Social History Preferred Language: Ukrainian Communication Ability: Effective Beliefs That Will Affect Care: None Current Living Situation: Spouse Current Living Situation Comment: live with Feels Safe at Home: Yes Smoking Status: Former smoker Hx Alcohol Use: No Hx Substance Use: No Review of Systems A total of 10 systems reviewed and were otherwise negative Physical Exam Vital Signs Vital Signs - 24 hr 08/29/19 14:19 08/29/19 14:38 08/29/19 14:41 Temperature 36.9 C Temperature Source Oral Pulse Rate 140 H 109 H 106 H Pulse Rate from SpO2 Sensor 109 H 106 H Respiratory Rate 18 25 H 24 Blood Pressure 91/72 L 101/67 Blood Pressure [Left Arm] Blood Pressure Mean 78 81 Blood Pressure Mean [Left Arm] Pulse Oximetry 95 98 97 Oxygen Delivery Method Room Air Sepsis Recent Fever Within 48 Hours No Sepsis Action Taken by Nursing No Action Required 08/29/19 14:44 08/29/19 14:48 08/29/19 14:50 Temperature Temperature Source Pulse Rate 104 H 104 H Pulse Rate from SpO2 Sensor 107 H 104 H Respiratory Rate 10 L 25 H Blood Pressure 107/69 126/75 Blood Pressure [Left Arm] 113/65 Blood Pressure Mean 82 84 Blood Pressure Mean [Left Arm] 81 Pulse Oximetry 97 97 Oxygen Delivery Method Sepsis Recent Fever Within 48 Hours Sepsis Action Taken by Nursing 08/29/19 15:00 08/29/19 15:10 08/29/19 15:20 Temperature Temperature Source Pulse Rate 102 H 99 H 99 H Pulse Rate from SpO2 Sensor 104 H 101 H 98 H Respiratory Rate 25 H 21 25 H Blood Pressure 132/76 115/65 121/72 Blood Pressure [Left Arm] Blood Pressure Mean 83 78 80 Blood Pressure Mean [Left Arm] Pulse Oximetry 97 96 97 Oxygen Delivery Method Sepsis Recent Fever Within 48 Hours Sepsis Action Taken by Nursing 08/29/19 15:30 08/29/19 15:31 08/29/19 15:40 Temperature Temperature Source Pulse Rate 97 H 97 H 97 H Pulse Rate from SpO2 Sensor 98 H 97 H 97 H Respiratory Rate 24 24 23 Blood Pressure 123/70 114/72 Blood Pressure [Left Arm] Blood Pressure Mean 94 81 Blood Pressure Mean [Left Arm] Pulse Oximetry 96 96 98 Oxygen Delivery Method Sepsis Recent Fever Within 48 Hours Sepsis Action Taken by Nursing 08/29/19 16:03 08/29/19 16:06 08/29/19 16:10 Temperature Temperature Source Pulse Rate 100 H 100 H 98 H Pulse Rate from SpO2 Sensor 207 H 100 H 99 H Respiratory Rate 25 H 23 23 Blood Pressure 144/56 H 124/65 Blood Pressure [Left Arm] Blood Pressure Mean 71 82 Blood Pressure Mean [Left Arm] Pulse Oximetry 97 97 97 Oxygen Delivery Method Sepsis Recent Fever Within 48 Hours Sepsis Action Taken by Nursing 08/29/19 16:11 08/29/19 16:20 08/29/19 16:30 Temperature Temperature Source Pulse Rate 97 H 96 H 96 H Pulse Rate from SpO2 Sensor 97 H 96 H 95 H Respiratory Rate 24 25 H 24 Blood Pressure 135/70 159/74 H Blood Pressure [Left Arm] Blood Pressure Mean 78 93 Blood Pressure Mean [Left Arm] Pulse Oximetry 96 96 97 Oxygen Delivery Method Sepsis Recent Fever Within 48 Hours Sepsis Action Taken by Nursing 08/29/19 16:40 Temperature Temperature Source Pulse Rate 95 H Pulse Rate from SpO2 Sensor 96 H Respiratory Rate 18 Blood Pressure 141/74 H Blood Pressure [Left Arm] Blood Pressure Mean 82 Blood Pressure Mean [Left Arm] Pulse Oximetry 98 Oxygen Delivery Method Sepsis Recent Fever Within 48 Hours Sepsis Action Taken by Nursing Physical Exam GENERAL: He is oriented to person, place, and time. He appears well-developed and well-nourished. He does not appear distressed. HENT: Exam performed. - Head: Normocephalic and atraumatic. - Right Ear: External ear normal. No mastoid tenderness. - Left Ear: External ear normal. No mastoid tenderness. - Mouth/Throat: The oropharynx is clear and moist. No trismus in the jaw. No dental abscesses or uvula swelling. No oropharyngeal exudate or tonsillar abscesses. EYES: Conjunctivae and EOM are normal. Pupils are equal, round, and reactive to light. Right eye exhibits no discharge. Left eye exhibits no discharge. No scleral icterus. NECK: Normal range of motion. Neck supple. No JVD present. No spinous process tenderness present. No carotid bruit present. No rigidity. No tracheal deviation and normal range of motion present. No Brudzinski's sign and no Kernig's sign n oted. CV: Tachycardic rate, irregular rhythm, normal heart sounds and intact distal pulses. There is no peripheral edema. Palpable radial pulses bue. PULM/CHEST: Effort normal and breath sounds normal. No respiratory distress. No stridor. He has no wheezes. He has no rales. - Chest Wall: He exhibits no tenderness. ABD: The abdomen is soft and obese. Bowel sounds are normal. He has no distens ion. No mass is present. There is no tenderness. There is no rebound, no guarding, no Castillo's sign and no tenderness at McBurney's point. Rovsig negative. MUSC/SKEL: Normal range of motion. There is no peripheral edema, tenderness or deformity. LYMPH: No cervical adenopathy. NEURO: Right-sided weakness at baseline. SKIN: Skin is warm and dry. He is not diaphoretic. PSYCH: He has a normal mood and affect. Behavior is normal. Judgment and thought content normal. Course Course 1420: The patient was evaluated in room B 11. A complete history and physical exam was performed. Patient was placed on specialist icu and continuous pulse ox. Cardiac monitoring: An order was placed for continuous cardiac monitoring. The monitor shows ventricular heart rate ranged between 140-160 with a narrow complex rhythm. Initially his blood pressure was 91/64. Pads were attached to the placement. Patient was started on 1 L normal saline wide open. Patient continued to remain tachycardic. He denied any chest pain. He is alert and oriented x3. After fluid resuscitation was started, the patient's repeat blood pressure did improve. Therefore, cardioversion was deferred and the patient was pushed adenosine 6 mg IV push with continuous EKG recording. Continuous EKG recording revealed a break in the tachycardia and showed a possible atrial flutter versus sinus tachycardia with the underlying rhythm. 1500: EMR reviewed patient was admitted to the hospital from 04/13 to August 132019. He was admitted for SVT/UTI/near syncope. During that admission the patient had an echo which showed concentric left ventricular hypertrophy as well as wall motion abnormality with akinesis. The left ventricular systolic function was reduced with an ejection fraction of 40 to 45%. There is grade 1 diastolic dysfunction and a small pericardial effusion with no evidence of tamponade. The patient's urine culture during that admission grew out E. coli. Patient was discharged with p.o. antibiotics. 1532: Dr. Pearce at bedside. He evaluated the patient's rhythm strips as well as EKGs. He thinks that the patient was suffering from an SVT. Recommends changing the patient to metoprolol 75 mg daily. Patient's troponin is elevated, lower than his previous visit. Lactic acid is elevated 3.3. Urinalysis negative. We will scan the patient rule out PE as well as rule out Khurram. 1623: Vital signs stable. CTA negative for PE. CT negative for pyelonephritis. Patient is hemodynamically stable. No further runs of SVT. Patient will be admitted to the hospital given his recurrent SVT as well as his lactic acidemia. I discussed the case with the [facility] hospitalist team who stated to admit to Dr. Stein. Administered Medications Ioversol (Optiray 320 125ml) 120 ml IV ONCE PRN PRN Reason: Interaction Checking Stop: 09/02/19 16:10 Last Admin: 08/29/19 16:12 Dose: 120 ml Documented by: [id number] Discontinued Medications Adenosine (Adenosine) Confirm Administered Dose 6 mg IV .STK-MED ONE Stop: 08/29/19 14:29 Last Admin: 08/29/19 14:40 Dose: 6 mg Documented by: [id number] Medical Decision Making Laboratory Data Result diagrams: 08/29/19 14:35 08/29/19 14:35 Lab Results 08/29/19 08/29/19 08/29/19 Range/Units 14:35 14:35 14:35 WBC 9.73 (4.8-10.8) K/uL RBC 4.10 L (4.7-6.1) M/uL Hgb 11.7 L (14.0-18.0) g/dL POC Hgb (14.0-18.0) g/dl Hct 35.7 L (42-52) % POC Hct (42-52) % MCV 87.1 (80-100) fL MCH 28.5 (25-34) pg MCHC 32.8 (32-36) g/dL RDW Std Deviation 48.0 H (36.4-46.3) fL RDW Coeff of Marva 14.9 H (11.5-14.5) % Plt Count 295 (130-400) K/uL MPV 9.6 (7.4-10.4) fL Immature Gran % (Auto) 0.2 % Neut % (Auto) 57.2 % Lymph % (Auto) 34.2 % Gregory % (Auto) 7.0 % Eos % (Auto) 1.1 % Baso % (Auto) 0.3 % Immature Gran # (Auto) 0.02 (0.00-0.02) K/uL Neut # (Auto) 5.56 (1.4-6.5) K/uL Lymph # (Auto) 3.33 (1.2-3.4) K/uL Gregory # (Auto) 0.68 H (0.11-0.59) K/uL Eos # (Auto) 0.11 (0-0.5) K/uL Baso # (Auto) 0.03 (0-0.2) K/uL PT 10.5 (9.0-12.0) Seconds INR 1.0 (0.9-1.1) APTT 26.5 (21.0-31.0) Seconds PTT Ratio 0.9 POC Sodium (135-144) mmol/L Sodium 133 L (136-145) mmol/L POC Potassium (3.3-5.0) mmol/L Potassium 5.1 (3.5-5.1) mmol/L POC Chloride (101-112) mmol/L Chloride 99 (98-107) mmol/L Carbon Dioxide 27 (21-32) mmol/L POC Total CO2 (24-31) mmol/L Anion Gap 7.0 (3-11) POC Anion Gap (16-25) mmol/L POC BUN (7-18) mg/dl BUN 28 H (7-18) mg/dl Creatinine 1.37 (0.6-1.4) mg/dl POC Creatinine (0.6-1.3) mg/dl Est Cr Clr Drug Dosing 68.3 ml/min Est GFR ( Amer) 59.7 Est GFR (Non-Af Amer) 51.5 BUN/Creatinine Ratio 20.1 H (10-20) Glucose 112 H (70-99) mg/dl POC Glucose (other) (70-99) mg/dl Lactate (0.4-2.0) mmol/L Calcium 9.0 (8.5-10.1) mg/dl POC Ioniz Calcium Stan (1.12-1.32) mmol/l Magnesium 1.8 (1.8-2.4) mg/dl Total Bilirubin 0.3 (0.2-1) mg/dl AST 13 L (15-37) U/L ALT 27 (12-78) U/L Alkaline Phosphatase 132 H (45-117) U/L Troponin I 0.052 H* (0-0.045) ng/ml Total Protein 8.3 H (6.4-8.2) gm/dl Albumin 3.3 L (3.4-5.0) gm/dl Globulin 5.0 H (2.5-4.0) gm/dl Albumin/Globulin Ratio 0.7 L (0.9-2) Lipase 231 (73-393) U/L Urine Color Urine Appearance (Clear) Urine pH (4.5-7.5) Ur Specific [place] (1.000-1.030) Urine Protein (Negative) Urine Glucose (UA) (Negative) Urine Ketones (Negative) Urine Blood (Negative) Urine Nitrite (Negative) Urine Bilirubin (Negative) Urine Urobilinogen (Negative) Ur Leukocyte Esterase (Negative) 08/29/19 08/29/19 08/29/19 Range/Units 14:44 14:44 15:01 WBC (4.8-10.8) K/uL RBC (4.7-6.1) M/uL Hgb (14.0-18.0) g/dL POC Hgb 11.9 L (14.0-18.0) g/dl Hct (42-52) % POC Hct 35 L (42-52) % MCV (80-100) fL MCH (25-34) pg MCHC (32-36) g/dL RDW Std Deviation (36.4-46.3) fL RDW Coeff of Marva (11.5-14.5) % Plt Count (130-400) K/uL MPV (7.4-10.4) fL Immature Gran % (Auto) % Neut % (Auto) % Lymph % (Auto) % Gregory % (Auto) % Eos % (Auto) % Baso % (Auto) % Immature Gran # (Auto) (0.00-0.02) K/uL Neut # (Auto) (1.4-6.5) K/uL Lymph # (Auto) (1.2-3.4) K/uL Gregory # (Auto) (0.11-0.59) K/uL Eos # (Auto) (0-0.5) K/uL Baso # (Auto) (0-0.2) K/uL PT (9.0-12.0) Seconds INR (0.9-1.1) APTT (21.0-31.0) Seconds PTT Ratio POC Sodium 134 L (135-144) mmol/L Sodium (136-145) mmol/L POC Potassium 5.1 H (3.3-5.0) mmol/L Potassium (3.5-5.1) mmol/L POC Chloride 97 L (101-112) mmol/L Chloride (98-107) mmol/L Carbon Dioxide (21-32) mmol/L POC Total CO2 24 (24-31) mmol/L Anion Gap (3-11) POC Anion Gap 18.0 (16-25) mmol/L POC BUN 28 H (7-18) mg/dl BUN (7-18) mg/dl Creatinine (0.6-1.4) mg/dl POC Creatinine 1.2 (0.6-1.3) mg/dl Est Cr Clr Drug Dosing ml/min Est GFR ( Amer) Est GFR (Non-Af Amer) BUN/Creatinine Ratio (10-20) Glucose (70-99) mg/dl POC Glucose (other) 117 H (70-99) mg/dl Lactate 3.3 H* (0.4-2.0) mmol/L Calcium (8.5-10.1) mg/dl POC Ioniz Calcium Stan 1.20 (1.12-1.32) mmol/l Magnesium (1.8-2.4) mg/dl Total Bilirubin (0.2-1) mg/dl AST (15-37) U/L ALT (12-78) U/L Alkaline Phosphatase (45-117) U/L Troponin I (0-0.045) ng/ml Total Protein (6.4-8.2) gm/dl Albumin (3.4-5.0) gm/dl Globulin (2.5-4.0) gm/dl Albumin/Globulin Ratio (0.9-2) Lipase (73-393) U/L Urine Color Yellow Urine Appearance Clear (Clear) Urine pH 5.0 (4.5-7.5) Ur Specific [place] 1.012 (1.000-1.030) Urine Protein Negative (Negative) Urine Glucose (UA) Negative (Negative) Urine Ketones Negative (Negative) Urine Blood Negative (Negative) Urine Nitrite Negative (Negative) Urine Bilirubin Negative (Negative) Urine Urobilinogen Negative (Negative) Ur Leukocyte Esterase Negative (Negative) Imaging Data Radiologist's Impression: ABDOMEN AND PELVIS CT WITH IV CONTRAST HISTORY: Acute tachycardia with clinical concern for pyelonephritis. ro pyelo nephritis TECHNIQUE: Multiaxial CT images of the abdomen and pelvis were performed following the IV administration of 120 cc of Optiray 320, A dose lowering technique was utilized adhering to the principles of ALARA. COMPARISON STUDY: CTA of the chest of same day FINDINGS: Small left pleural effusion. Mild pleural thickening and enhancement of the left lung base, likely chronic. Trace right pleural effusion. Mild dependent left gr eater than right bibasilar opacities suggest atelectasis. No pneumatosis or pneumoperitoneum. Mild cardiomegaly. Coronary artery calcifications. Streak artifact from spinal fusion hardware. The study is limited secondary to positioning of the upper extremities. The spleen, pancreas and adrenal glands are unremarkable. Cholelithiasis without CT evidence of acute cholecystitis or biliary ductal dilation linear calcifications. The distal common bile duct and pancreatic head are likely vascular. Visualized hepatic and portal veins appear patent. Multifocal cortical scarring and parenchymal thinning of the interpolar and inferior pole left kidney. 2.7 x 2.2 cm hypodense focus of the medial interpolar right kidney is suggestive of a probable cyst. There is symmetric enhancement of the bilateral kidneys. Mild to moderate urinary bladder distention. Mild prostamegaly. Extensive mixed plaque of the abdominal aorta without aneurysm. No adenopathy. Fluid-filled distal esophagus. No bowel obstruction or bowel wall thickening. Colonic diverticulosis without acute diverticulitis. Scattered colonic air-fluid levels. The appendix is not diagnostically visualized. No secondary signs of acute appendicitis. Soft tissues are unremarkable. Multiple healed remote left- sided rib fractures. Thoracolumbar spinal fusion hardware IMPRESSION: 1. No bowel obstruction or bowel wall thickening. 2. Small left and trace right pleural effusions with left greater than right atelectasis. 3. Multifocal cortical scarring and parenchymal thinning of the left kidney. 4. Cholelithiasis. 5. Colonic diverticulosis without acute diverticulitis. 6. Additional findings as above. ACT 112: Negative or not required by law. The above report was generated using voice recognition software. It may contain grammatical, syntax or spelling errors. Electronically signed by: Bhargav Gold M.D. 08/29/2019 4:19 PM Dictated: 08/29/19 1612 Transcribed: 08/29/192 CHEST CTA for PULMONARY ARTERIES CT DOSE: 2021.53 mGycm HISTORY: Shortness of breath. TECHNIQUE: Multiaxial CT images of the chest were performed following the intravenous administration of contrast to evaluate the pulmonary arteries. Maxim al intensity projection images were also obtained. A dose lowering technique was utilized adhering to the principles of ALARA. COMPARISON STUDY: None. FINDINGS: Mild calcified plaque within the normal caliber thoracic aorta. No evidence for an aortic dissection. Suboptimal evaluation of the pulmonary arteries due to the metallic artifact from the extensive posterior spinal fusion hardware. However, no definite filling defects seen within the pulmonary arteries to suggest pulmonary embolus. Old, healed bilateral rib fractures. Please refer to the same day abdomen and pelvis CT for further evaluation of the abdominal structures. Small left and trace right pleural effusions. No pericardial effusion. The heart is normal in size. A prominent subcarinal lymph node measuring 1.7 cm in short axis diameter. No hilar lymphadenopathy. Normal caliber esophagus. No pneumothorax. The central airways are patent. A 4 mm nodule within the left upper lobe on image 221. Bibasilar densities favor compr essive atelectasis from the pleural effusions. A 4 mm nodule within the right upper lobe on image 166 and a 4 mm nodule within the right middle lobe on image 154. IMPRESSION: 1. No definite evidence for pulmonary embolus. 2. Small left and trace right pleural effusions. 3. Bibasilar densities favor atelectasis. 4. A few subcentimeter indeterminate pulmonary nodules measuring up 4 mm. Please refer to the chart below for recommended follow-up. Please refer to below summary of Fleischner criteria recommendations for follow- up of incidental CT nodules (Prem Zaman, Guidelines for management of small pulmonary nodules detected on CT scans: A statement from the Fleischner Society, Radiology 237: [phone].) SOLID NODULES Solitary nodule size: <6 mm * Low risk patients: no follow-up needed * high risk patients: optional CT at 12 months Solitary nodule size: 6-8 mm * Low risk patients: follow-up at 6-12 months, then consider further follow-up at 18-24 months * high risk patients: initial follow-up CT at 6-12 months and then at 18-24 months if no change Solitary nodule size: >8 mm * either low or high risk patients - consider follow-up CT at 3 months, and/or CT-PET, and/or biopsy Multiple nodules size: <6 mm * Low risk patients: no routine follow-up * high risk patients: optional CT at 12 months Multiple nodules size: 6-8 mm * Low risk patients: follow-up at 3-6 months, then consider further follow-up at 18-24 months * high risk patients: follow-up at 3-6 months, then at 18-24 months if no change Multiple nodules size: >8 mm * Low risk patients: follow-up at 3-6 months, then consider further follow-up at 18-24 months * high risk patients: follow-up at 3-6 months, then at 18-24 months if no change Note: newly detected indeterminate nodule in persons 35 years of age or older. * Low risk patients: minimal or absent history of smoking and/or other known risk factors * high risk patients: history of smoking or of other known risk factors (e.g. first degree relative with lung cancer, or exposure to asbestos, radon, uranium) * if a nodule up to 8 mm is partly solid or is ground glass further follow-up is required after 24 months to exclude possible slow growing adenocarcinoma (ARELY) SUBSOLID NODULES Solitary pure ground-glass nodule * nodule size <6 mm - no CT follow-up required * nodule size >=6 mm - follow-up CT at 6-12 months, then every 2 years until 5 years Solitary part-solid nodule * nodule size <6 mm - no CT follow-up required * nodule size >=6 mm - follow-up CT at 3-6 months. If unchanged, and solid component remains <6 mm, then annual follow-up for 5 years Multiple subsolid nodules * nodule size <6 mm - follow-up CT at 3-6 months, consider further follow-up at 2 and 4 years if stable * nodule size >=6 mm - follow-up CT at 3-6 months, subsequent management based on the most suspicious nodule(s) ACT 112: Negative or not required by law. Electronically signed by: Segundo Brown M.D. 08/29/2019 4:10 PM Dictated: 08/29/19 1602 Transcribed: 08/29/19 1602 XR chest 1V portable CLINICAL HISTORY: Atypical chest pain COMPARISON STUDY: 08/09/2019 FINDINGS: The heart is enlarged. There is an electronic device projected over the left hemithorax. There are postsurgical changes of posterior spinal rods. There is no overt failure. There is no lobar consolidation. There is stable bl unting of the left cardiophrenic angle.[There is a chronic left AC joint separation. IMPRESSION: No significant change from the preceding study. No acute findings ACT 112: Negative or not required by law. Electronically signed by: Marco Navarrete M.D. 08/29/2019 2:54 PM Dictated: 08/29/19 1452 Transcribed: 08/29/19 1452 ECG Data Additional Comments: EKG 1 at 1424: SVT with a rate of 140. QRS and QTc intervals within normal limits. No ST elevation ST depression. EKG #2 at 1437: SVT or atrial flutter with a ventricular rate of 141. QRS and QTc intervals are within normal limits. No ST elevation or ST depression. EKG #3 at 1440: Sinus tachycardia or atrial flutter with a ventricular rate of 108. DC QRS and QTc intervals are within normal limits. No ST elevation or ST depression. MDM Narrative 1420: The patient was evaluated in room B 11. A complete history and physical exam was performed. Patient was placed on specialist icu and continuous pulse ox. Cardiac monitoring: An order was placed for continuous cardiac monitoring. The monitor shows ventricular heart rate ranged between 140-160 with a narrow complex rhythm. Initially his blood pressure was 91/64. Pads were attached to the placement. Patient was started on 1 L normal saline wide open. Patient continued to remain tachycardic. He denied any chest pain. He is alert and oriented x3. After fluid resuscitation was started, the patient's repeat blood pressure did improve. Therefore, cardioversion was deferred and the patient was pushed adenosine 6 mg IV push with continuous EKG recording. Continuous EKG recording revealed a break in the tachycardia and showed a possible atrial flutter versus sinus tachycardia with the underlying rhythm. 1500: EMR reviewed patient was admitted to the hospital from 04/13 to August 132019. He was admitted for SVT/UTI/near syncope. During that admission the patient had an echo which showed concentric left ventricular hypertrophy as well as wall motion abnormality with akinesis. The left ventricular systolic function was reduced with an ejection fraction of 40 to 45%. There is grade 1 diastolic dysfunction and a small pericardial effusion with no evidence of tamponade. The patient's urine culture during that admission grew out E. coli. Patient was discharged with p.o. antibiotics. 1532: Dr. Pearce at bedside. He evaluated the patient's rhythm strips as well as EKGs. He thinks that the patient was suffering from an SVT. Recommends changing the patient to metoprolol 75 mg daily. Patient's troponin is elevated, lower than his previous visit. Lactic acid is elevated 3.3. Urinalysis negative. We will scan the patient rule out PE as well as rule out Khurram. 1623: Vital signs stable. CTA negative for PE. CT negative for pyelonephritis. Patient is hemodynamically stable. No further runs of SVT. Patient will be admitted to the hospital given his recurrent SVT as well as his lactic acidemia. I discussed the case with the [facility] hospitalist team who stated to admit to Dr. Stein. Impression & Plan SVT (supraventricular tachycardia), Lactic acidemia Discharge Plan Visit Data Chief Complaint: Tachycardia Stated Complaint: WEAKNESS, TACHYCARDIA ED Provider: Ramos Dean Discharge Problem: SVT (supraventricular tachycardia), Lactic acidemia Patient Disposition: Being Evaluated by Hospitalist Forms Stand Alone Forms: My [facility] Prescriptions Prescriptions: No Action losartan 50 mg Tablet 50 mg PO QAM RF: 0 cetirizine 10 mg Tablet 10 mg PO HS RF: 0 metoprolol succinate 50 mg Tablet Extended Release 24 Hr 50 mg PO QAM RF: 0 finasteride 5 mg Tablet 5 mg PO QDL RF: 0 escitalopram oxalate [Lexapro] 10 mg Tablet 10 mg PO QAM RF: 0 metformin 500 mg Tablet 500 mg PO QPM RF: 0 levetiracetam 750 mg tablet 750 mg PO Q12H RF: 0 furosemide 40 mg tablet 40 mg PO QAM RF: 0 atorvastatin 40 mg tablet 40 mg PO HS RF: 0 glipizide 10 mg Tablet 10 mg PO BIDM RF: 0 levothyroxine 25 mcg tablet 25 mcg PO DAILYBB RF: 0 metformin 1,000 mg tablet 1,000 mg PO QAM RF: 0 folic acid 1 mg Tablet 1 mg PO QAM RF: 0 aspirin 325 mg Tablet 325 mg PO QAM RF: 0 ascorbic acid (vitamin C) 500 mg Tablet 1,000 mg PO BID RF: 0 acetaminophen 325 mg Tablet 650 mg PO Q4H MDD 10 TABLETS/DAILY PRN (Reason: Fever Or Pain) RF: 0 famotidine 20 mg Tablet 20 mg PO BIDM RF: 0 Referrals Referrals: Raysa Hobbs M.D. [Primary Care Provider] -
[2019-08-29] MEDS ORDERED: OPTIRAY 320 125ml IV PRN (16:11)
--- NOTE | 2019-08-29 16:13 | CT Scan Report ---
CHEST CTA for PULMONARY ARTERIES CT DOSE: 2021.53 mGycm HISTORY: Shortness of breath. TECHNIQUE: Multiaxial CT images of the chest were performed following the intravenous administration of contrast to evaluate the pulmonary arteries. Maximal intensity projection images were also obtaine d. A dose lowering technique was utilized adhering to the principles of ALARA. COMPARISON STUDY: None. FINDINGS: Mild calcified plaque within the normal caliber thoracic aorta. No evidence for an aortic d issection. Suboptimal evaluation of the pulmonary arteries due to the metallic artifact from the exte nsive posterior spinal fusion hardware. However, no definite filling defects seen within the pulmonar y arteries to suggest pulmonary embolus. Old, healed bilateral rib fractures. Please refer to the [facility] e day abdomen and pelvis CT for further evaluation of the abdominal structures. Small left and trace right pleural effusions. No pericardial effusion. The heart is normal in size. A prominent subcarinal lymph node measuring 1.7 cm in short axis diameter. No hilar lymphadenopathy. Normal caliber esophag us. No pneumothorax. The central airways are patent. A 4 mm nodule within the left upper lobe on imag e 221. Bibasilar densities favor compressive atelectasis from the pleural effusions. A 4 mm nodule wi thin the right upper lobe on image 166 and a 4 mm nodule within the right middle lobe on image 154. IMPRESSION: 1. No definite evidence for pulmonary embolus. 2. Small left and trace right pleural effusions. 3. Bibasilar densities favor atelectasis. 4. A few subcentimeter indeterminate pulmonary nodules measuring up 4 mm. Please refer to the chart b vivek for recommended follow-up. Please refer to below summary of Fleischner criteria recommendations for follow-up of incidental CT n odules (Prem Zaman, Guidelines for management of small pulmonary nodules detected on CT scans: A sta tement from the Fleischner Society, Radiology 237: [phone].) SOLID NODULES Solitary nodule size: <6 mm * Low risk patients: no follow-up needed * high risk patients: optional CT at 12 months Solitary nodule size: 6-8 mm * Low risk patients: follow-up at 6-12 months, then consider further follow-up at 18-24 months * high risk patients: initial follow-up CT at 6-12 months and then at 18-24 months if no change Solitary nodule size: >8 mm * either low or high risk patients - consider follow-up CT at 3 months, and/or CT-PET, and/or biopsy Multiple nodules size: <6 mm * Low risk patients: no routine follow-up * high risk patients: optional CT at 12 months Multiple nodules size: 6-8 mm * Low risk patients: follow-up at 3-6 months, then consider further follow-up at 18-24 months * high risk patients: follow-up at 3-6 months, then at 18-24 months if no change Multiple nodules size: >8 mm * Low risk patients: follow-up at 3-6 months, then consider further follow-up at 18-24 months * high risk patients: follow-up at 3-6 months, then at 18-24 months if no change Note: newly detected indeterminate nodule in persons 35 years of age or older. * Low risk patients: minimal or absent history of smoking and/or other known risk factors * high risk patients: history of smoking or of other known risk factors (e.g. first degree relative with lung cancer, or exposure to asbestos, radon, uranium) * if a nodule up to 8 mm is partly solid or is ground glass further follow-up is required after 24 m onths to exclude possible slow growing adenocarcinoma (ARELY) SUBSOLID NODULES Solitary pure ground-glass nodule * nodule size <6 mm - no CT follow-up required * nodule size >=6 mm - follow-up CT at 6-12 months, then every 2 years until 5 years Solitary part-solid nodule * nodule size <6 mm - no CT follow-up required * nodule size >=6 mm - follow-up CT at 3-6 months. If unchanged, and solid component remains <6 mm, then annual follow-up for 5 years Multiple subsolid nodules * nodule size <6 mm - follow-up CT at 3-6 months, consider further follow-up at 2 and 4 years if sta ble * nodule size >=6 mm - follow-up CT at 3-6 months, subsequent management based on the most suspiciou s nodule(s) ACT 112: Negative or not required by law. Electronically signed by: Segundo Brown M.D. 08/29/2019 4:10 PM
--- NOTE | 2019-08-29 16:21 | CT Scan Report ---
ABDOMEN AND PELVIS CT WITH IV CONTRAST HISTORY: Acute tachycardia with clinical concern for pyelonephritis. ro pyelo nephritis TECHNIQUE: Multiaxial CT images of the abdomen and pelvis were performed following the IV administrat ion of 120 cc of Optiray 320, A dose lowering technique was utilized adhering to the principles of A PITER. COMPARISON STUDY: CTA of the chest of same day FINDINGS: Small left pleural effusion. Mild pleural thickening and enhancement of the left lung base, likely ch ronic. Trace right pleural effusion. Mild dependent left greater than right bibasilar opacities sugge st atelectasis. No pneumatosis or pneumoperitoneum. Mild cardiomegaly. Coronary artery calcifications . Streak artifact from spinal fusion hardware. The study is limited secondary to positioning of the upp er extremities. The spleen, pancreas and adrenal glands are unremarkable. Cholelithiasis without CT e vidence of acute cholecystitis or biliary ductal dilation linear calcifications. The distal common bi le duct and pancreatic head are likely vascular. Visualized hepatic and portal veins appear patent. Multifocal cortical scarring and parenchymal thinning of the interpolar and inferior pole left kidney . 2.7 x 2.2 cm hypodense focus of the medial interpolar right kidney is suggestive of a probable cyst . There is symmetric enhancement of the bilateral kidneys. Mild to moderate urinary bladder distentio n. Mild prostamegaly. Extensive mixed plaque of the abdominal aorta without aneurysm. No adenopathy. Fluid-filled distal esophagus. No bowel obstruction or bowel wall thickening. Colonic diverticulosis without acute diverticulitis. Scattered colonic air-fluid levels. The appendix is not diagnostically visualized. No secondary signs of acute appendicitis. Soft tissues are unremarkable. Multiple healed remote left-sided rib fractures. Thoracolumbar spinal fusion hardware IMPRESSION: 1. No bowel obstruction or bowel wall thickening. 2. Small left and trace right pleural effusions with left greater than right atelectasis. 3. Multifocal cortical scarring and parenchymal thinning of the left kidney. 4. Cholelithiasis. 5. Colonic diverticulosis without acute diverticulitis. 6. Additional findings as above. ACT 112: Negative or not required by law. The above report was generated using voice recognition software. It may contain grammatical, syntax o r spelling errors. Electronically signed by: Bhargav Gold M.D. 08/29/2019 4:19 PM
[2019-08-29] MEDS ORDERED: SODIUM CHLORIDE 0.9% 1000ML 1,000 ML IV ONE (16:51)
[2019-08-29] MEDS ORDERED: METOPROLOL SUCC 25MG EXT REL TAB PO STA (17:50)
--- NOTE | 2019-08-29 17:58 | History & Physical Report ---
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 In ER pt afebrile, P: 140, R: 18, BP: 91/72, 95% on RA. Initial EKG rate 140 suspected SVT. No leukocytosis, K: 5.1, magnesium: 1.8, troponin: 0.05. TSH was 6.8 on 08/12/2019 -In ER given adenosine with return to sinus rhythm. Also given 1L NSS -Monitor on tele -Cardiology consult, Dr Pearce saw pt in ER and thought rhythm was SVT and suggested increasing pt's metoprolol from 50mg to 75mg daily -Will give pt dose of additional 25mg metoprolol succinate now and plan to start 75mg daily tomorrow morning -Monitor BMP (2) Elevated lactic acid level: Lactate: 3.3 No fever/chills. Pt afebrile in ER. No leukocytosis. No urinary symptoms. UA appears clear today, CXR without infiltrate, CT Abd/pelvis without diverticulitis, colitis -Urine culture, blood cultures -In ER given 1L NSS -Repeat lactate: 2.6 -No signs infection at this time, will hold on antibiotics -Repeat lactate acid -Monitor CBC (3) Elevated troponin: troponin: 0.05 Suspect elevated secondary to demand from SVT. No CP -Trend troponin -Repeat EKG in am -Continue aspirin, metoprolol, statin (4) CAD (coronary artery disease): (5) Ischemic cardiomyopathy: Echo on 08/12/2020 EF: 40%, grade 1 diastolic dysfunction, large sized apical, septal, anteroseptal wall motion abnormality with akinesis, small pericardial effusion -Continue aspirin, statin, metoprolol with adjusted dosing as above (6) Hypertension: Initially hypotensive in ER with BP 91/72 up to 141/74 -We will hold losartan and lisinopril and reassess in a.m. -Continue metoprolol succinate with adjusted dosing as above (7) CVA (cerebrovascular accident): Residual right sided weakness -Continue aspirin, statin -Fall precautions (8) Diabetes mellitus, type II: A1c: 7.8 on 08/12/2019 -Hold glipizide, metformin, Victoza -NovoLog sliding scale per protocol (9) Hypothyroidism: TSH: 6.8 on 08/12/2019 -Continue levothyroxine DVT Prophylaxis -Heparin SQ Full Code as per discussion with pt Follows with Dr Hobbs in [place] for routine care Pt was seen and care coordinated with Dr Stein. 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 Patient states this morning around 9 AM started with palpitations and had one episode of vomiting. Palpitations persisted until ER arrival. Patient denies any associated dizziness, lightheadedness, chest pain, diaphoresis, shortness of breath. He reports took levothyroxine and Lasix in the morning and takes his other medications at noon which included his metoprolol. Denies any fever, chills. Patient reports chronic intermittent productive cough for several eric hs. Denies SOB. Denies any other nausea, vomiting. Patient reports constipation has been taking stool softeners twice a day and yesterday able to have BM which was soft and today with loose BM. He has since held his stool softeners. Denies HATFIELD, dizziness, syncope, neck pain, orthopnea, sore throat, choking, otalgia, rhinorrhea, abdominal pain, paresthesias, worsening or different extremity weakness, extremity edema, rashes, urinary symptoms. Recent hospital admission 08/12/19-08/14/19 for SVT, e.coli UTI that was initially treated with Rocephin then cefdinir x 5 days. Pt reports finished antibiotic course. Allergies Allergy/AdvReac Type Severity Reaction Status Date / Time tramadol [From Ultram] Allergy Severe Seizure Verified 08/29/19 16:14 haloperidol [From Haldol] Allergy Unknown Unknown Verified 08/29/19 16:14 Home Medications Home Medications Medication Instructions Recorded Confirmed Type acetaminophen 650 mg PO Q4H PRN MDD 10 02/06/19 08/29/19 History TABLETS/DAILY ascorbic acid (vitamin C) 1,000 mg PO BID 02/06/19 08/29/19 History aspirin 325 mg PO QAM 02/06/19 08/29/19 History atorvastatin 40 mg PO HS 02/06/19 08/29/19 History famotidine 20 mg PO BIDM 02/06/19 08/29/19 History folic acid 1 mg PO QAM 02/06/19 08/29/19 History furosemide 40 mg PO QAM 02/06/19 08/29/19 History glipizide 10 mg PO BIDM 02/06/19 08/29/19 History levothyroxine 25 mcg PO DAILYBB 02/06/19 08/29/19 History metformin 1,000 mg PO QAM 02/06/19 08/29/19 History cetirizine 10 mg PO HS 08/12/19 08/29/19 History escitalopram oxalate [Lexapro] 10 mg PO QAM 08/12/19 08/29/19 History finasteride 5 mg PO QDL 08/12/19 08/29/19 History losartan 50 mg PO QAM 08/12/19 08/29/19 History metoprolol succinate 50 mg PO QAM 08/12/19 08/29/19 History levetiracetam 750 mg PO Q12H 08/29/19 08/29/19 History metformin 500 mg PO QPM 08/29/19 08/29/19 History Past Med/Surg History Medical History (Updated 08/29/19 @ 18:04 by Giovanna Melendez PA-C) Acute respiratory failure with hypoxia MARIELLE (acute kidney injury) Anemia CAD (coronary artery disease) Carotid artery occlusion Cerebral hypoperfusion CHF (congestive heart failure) CVA (cerebral vascular accident) CVA (cerebrovascular accident) (Acute) Diabetes Diabetes mellitus, type II GERD (gastroesophageal reflux disease) History of common carotid artery stent placement HLD (hyperlipidemia) Hypertension Hypomagnesemia Hypothyroidism Ischemic cardiomyopathy Paroxysmal SVT (supraventricular tachycardia) (Acute) Pulmonary edema Seizure (Acute) UTI (urinary tract infection) Family History Father Coronary heart disease Stroke Social History Preferred Language: Tajik Communication Ability: Effective 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 Beliefs That Will Affect Care: None Current Living Situation: Spouse Current Living Situation Comment: LIVES WITH Other Information That Helps Us Care for You: No Feels Safe at Home: Yes Safety Concerns: Feels Safe At This Time Smoking Status: Former smoker Do You Dip or Chew Tobacco: No ; Second Hand Exposure: No ; Tobacco Cessation Education Requested by Patient: No Hx Alcohol Use: No Hx Substance Use: No Review of Systems Review of Systems: All systems reviewed & are unremarkable except as noted in HPI & below Physical Exam Physical Exam: General: no acute distress, obese Head: normocephalic, atraumatic Eyes: conjunctiva non-injected, anicteric ENT: normal inspection external ears, nose, mucous membranes moist Neck: supple, trachea midline Lungs: clear, no respiratory distress, no wheezing/rhonchi/rales CV: RRR, no murmur, no pretibial edema Abd: normal BS, soft, protuberant, non-tender Ext: no cyanosis, no calf tenderness Neuro: A&O x 3, chronic right arm and leg weakness, no other focal deficits noted, normal affect Skin: warm, dry Results & Data Results & Data ([facility]) Vital Signs (Past 12 Hours) Vital Signs Temp Pulse Resp BP BP Pulse Ox 08/29/19 16:40 95 H 18 141/74 H 98 08/29/19 16:30 96 H 24 159/74 H 97 08/29/19 16:20 96 H 25 H 135/70 96 08/29/19 16:11 97 H 24 96 08/29/19 16:10 98 H 23 124/65 97 08/29/19 16:06 100 H 23 144/56 H 97 08/29/19 16:03 100 H 25 H 97 08/29/19 15:40 97 H 23 114/72 98 08/29/19 15:31 97 H 24 96 08/29/19 15:30 97 H 24 123/70 96 08/29/19 15:20 99 H 25 H 121/72 97 08/29/19 15:10 99 H 21 115/65 96 08/29/19 15:00 102 H 25 H 132/76 97 08/29/19 14:50 104 H 25 H 126/75 97 08/29/19 14:48 104 H 10 L 107/69 97 08/29/19 14:44 113/65 08/29/19 14:41 106 H 24 97 08/29/19 14:38 109 H 25 H 101/67 98 08/29/19 14:19 36.9 C 140 H 18 91/72 L 95 Laboratory Results Short CBC 08/29/19 08/29/19 08/29/19 Range/Units 14:35 14:35 14:44 WBC 9.73 (4.8-10.8) K/uL Hgb 11.7 L (14.0-18.0) g/dL Hct 35.7 L (42-52) % Plt Count 295 (130-400) K/uL Creatinine 1.37 (0.6-1.4) mg/dl Est GFR (Non-Af Amer) 51.5 Lactate 3.3 H* (0.4-2.0) mmol/L 08/29/19 Range/Units 16:37 WBC (4.8-10.8) K/uL Hgb (14.0-18.0) g/dL Hct (42-52) % Plt Count (130-400) K/uL Creatinine (0.6-1.4) mg/dl Est GFR (Non-Af Amer) Lactate 2.6 H* (0.4-2.0) mmol/L BMP 08/29/19 14:35 Sodium 133 L Potassium 5.1 Chloride 99 Carbon Dioxide 27 BUN 28 H Creatinine 1.37 Glucose 112 H Calcium 9.0 Cardiac Enzymes 08/29/19 Range/Units 14:35 Troponin I 0.052 H* (0-0.045) ng/ml Liver Function 08/29/19 Range/Units 14:35 Total Bilirubin 0.3 (0.2-1) mg/dl AST 13 L (15-37) U/L ALT 27 (12-78) U/L Alkaline Phosphatase 132 H (45-117) U/L Albumin 3.3 L (3.4-5.0) gm/dl Urine 08/29/19 Range/Units 15:01 Urine Color Yellow Urine Appearance Clear (Clear) Urine pH 5.0 (4.5-7.5) Ur Specific [place] 1.012 (1.000-1.030) Urine Protein Negative (Negative) Urine Glucose (UA) Negative (Negative) Diagnostic Findings CXR: IMPRESSION: No significant change from the preceding study. No acute findings CTA CHEST: IMPRESSION: 1. No definite evidence for pulmonary embolus. 2. Small left and trace right pleural effusions. 3. Bibasilar densities favor atelectasis. 4. A few subcentimeter indeterminate pulmonary nodules measuring up 4 mm. Please refer to the chart below for recommended follow-up. CT ABD/PELVIS: IMPRESSION: 1. No bowel obstruction or bowel wall thickening. 2. Small left and trace right pleural effusions with left greater than right atelectasis. 3. Multifocal cortical scarring and parenchymal thinning of the left kidney. 4. Cholelithiasis. 5. Colonic diverticulosis without acute diverticulitis. 6. Additional findings as above. Code Status & VTE Plan VTE Prophylaxis Plan VTE Prophylaxis will be ordered: Yes Supervising Physician Co-Signing Physician Notes Attending Addendum: care coordinated with JOHN Zavala please refer to her notes for full details, I agree with her notes patient seen and examined, records reviewed by myself as well on exam, patient in bed, not in distress, comfortable, awake, alert oriented x3 States he feels fine overall No active chest pain, palpitations, shortness of breath, dizziness Sinus rhythm on telemetry, heart rate 68 no other symptoms VS noted and reviewed oriented x 3, not in distress, speaks in sentences with no effort nor accessory muscle use normal rate, regular rhythm, no murmurs clear breath sounds bilaterally non distended, soft, nontender no bipedal edema, erythema, warmth no neuro deficits WBC 9.7 Hg 11.9 Crea 0.05 ASSESSMENT AND PLAN Proximal supraventricular tachycardia Discharged 2 weeks ago secondary to episode of SVT Received adenosine 6 mg IV at the ER with resolution of SVT Cardiology recommendations noted in ER physician's notes Will increase metoprolol XL 50 mg to 75 mg today Monitor in telemetry unit Ischemic cardiomyopathy, history of CAD Euvolemic Continue usual aspirin, Lipitor, Toprol increased as per #1 Hypertension Blood pressure on the lower side while in the emergency room Hold losartan today, reassess in the morning other diagnoses and plan of care as per JOHN Zavala notes Angus Stein MD (1) CVA (cerebrovascular accident) CVA mechanism: unspecified Qualified Code(s): I63.9 - Cerebral infarction, unspecified
[2019-08-29] MEDS ORDERED: DEXTROSE 50% 50 ML SYRINGE IV PRN (18:33)
[2019-08-29] MEDS ORDERED: ACETAMINOPHEN 325 MG TAB PO PRN (18:33)
[2019-08-29] MEDS ORDERED: GLUCAGON FOR INJ 1 MG VIAL SQ PRN (18:33)
[2019-08-29] MEDS ORDERED: CARBOHYDRATES FOR HYPOGLYCEMIA PO PRN (18:33)
[2019-08-29] MEDS ORDERED: GLUCOSE 40% GEL 15 GM TUBE PO PRN (18:33)
[2019-08-29] MEDS ORDERED: GLUCOSE 10 TABS/TUBE PO PRN (18:33)
[2019-08-29] MEDS: ATORVASTATIN 40 MG TAB PO SCH (20:06)
[2019-08-29] MEDS: CETIRIZINE HCL 10 MG TABLET PO SCH (20:07)
[2019-08-29] MEDS: ASCORBIC ACID 500 MG TAB PO SCH (20:07)
[2019-08-29] MEDS: levETIRAcetam 250 MG TAB PO SCH (20:08)
[2019-08-29] MEDS: INSULIN ASPART 100 UNITS/ML 3 ML PEN SC SCH (20:11)
[2019-08-29] MEDS: HEPARIN SOD 5,000 UNIT/0.5 ML VIAL SQ SCH (20:12)
--- NOTE | 2019-08-29 22:01 | Electrocardiogram Report ---
Test Reason : Blood Pressure : / mmHG Vent. Rate : 140 BPM Atrial Rate : 122 BPM P-R Int : 000 ms QRS Dur : 096 ms QT Int : 314 ms P-R-T Axes : 000 031 007 degrees QTc Int : 479 ms Supraventricular tachycardia Septal infarct , age undetermined Abnormal ECG When compared with ECG of 13-AUG-2019 07:32, Supraventricular tachycardia has replaced Sinus rhythm Vent. rate has increased BY 61 BPM Septal infarct is now Present T wave inversion now evident in Inferior leads Confirmed by Yemi Sandoval ([id number]) on 08/29/2019 10:00:13 PM Referred By: Confirmed By:Yemi Sandoval
--- NOTE | 2019-08-29 22:43 | Communication Note ---
Date of Service: August 29, 2019 Attending Addendum: care coordinated with JOHN Horta please refer to her notes for full details, I agree with her notes patient seen and examined, records reviewed by myself as well on exam, patient seen resting in bed, comfortable, not distress, alert and oriented x2, answers most questions appropriately but occasionally gets forgetful Does not recall events of today but does report that she has been falling quite frequently at home, while getting out of bed, or while she is walking, but denies having any episodes of lightheadedness, dizziness, syncope Confirmed with ER physician and patient's daughter Becky over the phone, the patient was in the bathroom today, and had another fall, unsure whether she slipped or had a dizziness spell He was able to crawl to her bedroom and call for help, neighbors apparently called 911 She was admitted last month as well after a fall which was a result of slipping On exam, the patient reports pain on her back, no other symptoms VS noted and reviewed oriented , not in distress, speaks in sentences with no effort nor accessory muscle use normal rate, regular rhythm, no murmurs clear breath sounds bilaterally non distended, soft, nontender no bipedal edema, erythema, warmth no neuro deficits WBC Hg Crea ASSESSMENT AND PLAN other diagnoses and plan of care as per [] Angus Stein MD
[2019-08-29] MEDS: NYSTATIN POWDER 15GM BTL EXT SCH (23:35)
[2019-08-30 02:15] LABS: Hematocrit (blood only) 33.8 % (42-52); Mean Corpuscular Hemoglobin 28.5 pg (25-34); Mean Corpuscular Hgb Conc 32.5 g/dL (32-36); Mean Corpuscular Volume 87.6 fL (80-100); Mean Platelet Volume 8.9 fL (7.4-10.4); Platelet Count 271 K/uL (130-400); RDW Coefficient of Variation 15.2 % (11.5-14.5); RDW Standard Deviation 49.1 fL (36.4-46.3); Red Blood Count 3.86 M/uL (4.7-6.1); White Blood Count 8.02 K/uL (4.8-10.8)
[2019-08-30 02:45] LABS: BUN Creatinine Ratio 20.6 (10-20); Calcium 8.6 mg/dl (8.5-10.1); Creatinine Clr Calc Pharmacy 66.1 ml/min; Est GFR (African American) 58.7; Est GFR (Non-African American) 50.6; Magnesium 1.9 mg/dl (1.8-2.4); Potassium 4.3 mmol/L (3.5-5.1); Troponin I 0.726 ng/ml (0-0.045)
[2019-08-30] MEDS: LEVOTHYROXINE SODIUM 25 MCG TABLET PO SCH (06:14)
[2019-08-30] MEDS: HEPARIN SOD 5,000 UNIT/0.5 ML VIAL SQ SCH ×3 (06:14→23:46)
[2019-08-30 08:30] LABS: Partial Thromboplastin Time 29.1 Seconds (21.0-31.0)
[2019-08-30] MEDS: levETIRAcetam 250 MG TAB PO SCH ×2 (08:38→20:30)
[2019-08-30] MEDS: ESCITALOPRAM OXALATE 10 MG TAB PO SCH (08:38)
[2019-08-30] MEDS: INSULIN ASPART 100 UNITS/ML 3 ML PEN SC SCH ×4 (08:38→20:32)
[2019-08-30] MEDS: FAMOTIDINE 20 MG TAB PO SCH ×2 (08:39→17:44)
[2019-08-30] MEDS: ASPIRIN 325 MG ECTAB PO SCH (08:39)
[2019-08-30] MEDS: FOLIC ACID 1 MG TAB PO SCH (08:39)
[2019-08-30] MEDS: ASCORBIC ACID 500 MG TAB PO SCH ×2 (08:39→20:30)
[2019-08-30] MEDS: METOPROLOL SUCC 25MG EXT REL TAB PO SCH (08:39)
[2019-08-30] MEDS: NYSTATIN POWDER 15GM BTL EXT SCH ×2 (08:40→20:30)
[2019-08-30 08:46] LABS: Albumin Level 3.1 gm/dl (3.4-5.0); BUN Creatinine Ratio 21.6 (10-20); Calcium 8.8 mg/dl (8.5-10.1); Creatinine Clr Calc Pharmacy 79.1 ml/min; Potassium 4.1 mmol/L (3.5-5.1)
[2019-08-30 08:52] LABS: Albumin Globulin Ratio 0.7 (0.9-2); Bilirubin,Total 0.3 mg/dl (0.2-1); Globulin 4.2 gm/dl (2.5-4.0); Total Protein 7.3 gm/dl (6.4-8.2); Troponin I 0.568 ng/ml (0-0.045)
[2019-08-30] MEDS: FINASTERIDE 5 MG TAB PO SCH (12:36)
--- NOTE | 2019-08-30 12:45 | Cardiology Consultation ---
Date of Consultation August 30, 2019 Assessment & Plan (1) Paroxysmal SVT (supraventricular tachycardia): Patient has recurrent episodes of supraventricular tachycardia with 3 documented episodes in February 2019, July 2019 and this admission. Due to underlying ischemic heart disease and ischemic cardiomyopathy patient poorly tolerant of the arrhythmia with associated demand based ischemia. Elevated lactate level noted this admission Recommendations: Increase Toprol-XL to 75 mg p.o. daily Continue prior medications Referral placed to EP to consider for ablation (2) Ischemic cardiomyopathy: Patient currently compensated without signs or symptoms of heart failure, EKG normal this morning. Patient on appropriate medical therapies with Toprol, losartan, atorvastatin, aspirin (3) History of left common carotid artery stent placement: (4) CVA (cerebrovascular accident): With chronic seizure disorder visual field deficit (5) Lactic acidemia: No overt infection question secondary to sustained arrhythmia History of Present Illness Reason for Consultation: Paroxysmal supraventricular tachycardia Requesting Physician: Dr. Etienne Attending Physician: Dona Etienne MD History of Present Illness Patient is a 73-year-old male with complex ongoing issues which include 1. Paroxysmal supraventricular tachycardia, recurrent 2. Atherosclerotic coronary artery disease s/p cath in 1998 demonstrating a 50% LAD lesion and a 90% distal LAD lesion, chronic occulsion of the left circumflex and 60% stenosis of the RCA. 3. Ischemic cardiomyopathy EF 40% 4. Atherosclerotic carotid disease status post left carotid artery stenting with contralateral occlusion noted January 2019 for recurrent strokes 5. Seizure disorder cerebral edema post carotid procedure 6. Hypertension 7. Dyslipidemia 8. Type 2 diabetes mellitus Patient presents this admission once again found in a supraventricular tachycardia since is only mild palpitations but elevated heart rate. He had previously been evaluated for similar events and February 2019 and July 2019 both prior episodes terminating with adenosine prior to hospital presentation. Prior episodes were associated with demand based ischemia by enzyme release. Patient yesterday felt sense of palpitations that lasted from 9 AM until ER presentation in mid afternoon. Initial rhythm demonstrated in a narrow complex tachycardia rate 140 which terminated with single dose of 6 mg IV adenosine. Patient noted no specific chest pains or worsening shortness of breath. Noted no syncope or near syncope. Did have acute nausea on onset. No recent fevers chills, chronic cough present. No bleeding issues melena medication. Patient ambulatory with walker Allergies Allergy/AdvReac Type Severity Reaction Status Date / Time tramadol [From Ultram] Allergy Severe Seizure Verified 08/29/19 16:14 haloperidol [From Haldol] Allergy Unknown Unknown Verified 08/29/19 16:14 Home Medications Home Medications Medication Instructions Recorded Confirmed Type acetaminophen 650 mg PO Q4H PRN MDD 10 02/06/19 08/29/19 History TABLETS/DAILY ascorbic acid (vitamin C) 1,000 mg PO BID 02/06/19 08/29/19 History aspirin 325 mg PO QAM 02/06/19 08/29/19 History atorvastatin 40 mg PO HS 02/06/19 08/29/19 History famotidine 20 mg PO BIDM 02/06/19 08/29/19 History folic acid 1 mg PO QAM 02/06/19 08/29/19 History furosemide 40 mg PO QAM 02/06/19 08/29/19 History glipizide 10 mg PO BIDM 02/06/19 08/29/19 History levothyroxine 25 mcg PO DAILYBB 02/06/19 08/29/19 History metformin 1,000 mg PO QAM 02/06/19 08/29/19 History cetirizine 10 mg PO HS 08/12/19 08/29/19 History escitalopram oxalate [Lexapro] 10 mg PO QAM 08/12/19 08/29/19 History finasteride 5 mg PO QDL 08/12/19 08/29/19 History losartan 50 mg PO QAM 08/12/19 08/29/19 History metoprolol succinate 50 mg PO QAM 08/12/19 08/29/19 History levetiracetam 750 mg PO Q12H 08/29/19 08/29/19 History metformin 500 mg PO QPM 08/29/19 08/29/19 History Patient History Medical History Acute respiratory failure with hypoxia MARIELLE (acute kidney injury) Anemia CAD (coronary artery disease) Carotid artery occlusion Cerebral hypoperfusion CHF (congestive heart failure) CVA (cerebral vascular accident) CVA (cerebrovascular accident) (Acute) Diabetes Diabetes mellitus, type II GERD (gastroesophageal reflux disease) History of common carotid artery stent placement HLD (hyperlipidemia) Hypertension Hypomagnesemia Hypothyroidism Ischemic cardiomyopathy Paroxysmal SVT (supraventricular tachycardia) (Acute) Pulmonary edema Seizure (Acute) UTI (urinary tract infection) Family History Father Coronary heart disease Stroke Social History (Updated 08/30/19 @ 13:01 by Jeffry Pearce MD) Preferred Language: Georgian Communication Ability: Effective Waters[employer] Program Manager Required: No Beliefs That Will Affect Care: None Current Living Situation: Spouse Current Living Situation Comment: LIVES WITH 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 occupational 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 Other Information That Helps Us Care for You: No Feels Safe at Home: Yes Safety Concerns: Feels Safe At This Time Smoking Status: Former smoker Do You Dip or Chew Tobacco: No ; Second Hand Exposure: No ; Tobacco Cessation Education Requested by Patient: No Hx Alcohol Use: No Hx Substance Use: No Review of Systems Review of Systems: All systems reviewed & are unremarkable except as noted in HPI & below Physical Exam Constitutional: WD/WN, vitals as above Eyes: PERRL, conjunctivae normal, anicteric sclerae ENMT: external ear and nose normal, oropharynx normal Neck: trachea midline, no thyromegaly + thick neck Respiratory: normal respiratory effort, lungs clear to auscultation Cardiovascular: Rate/Rhythm: regular rate and regular rhythm Heart Sounds: normal S1 and normal S2; no gallop and no murmur Palpation: normal PMI Vessels: normal carotid upstroke and radial pulses present; no JVD and no carotid bruit Extremities: no edema Gastrointestinal (Abdomen): normal bowel sounds, soft, nontender, no hepatosplenomegaly Musculoskeletal: no cyanosis or clubbing, extremities motor strength 5/5 Skin: no rashes, warm and dry Neurologic: PERRL, EOMI, accommodation nl, no face palsy, no dysarthria Psychiatric: A+Ox3, euthymic affect Results & Data ([facility]) Vital Signs (Past 12 Hours) Vital Signs Temp Pulse Pulse Resp BP Pulse Ox 08/30/19 11:18 36.4 C L 74 18 148/78 H 98 08/30/19 08:55 36.4 C L 80 20 148/72 H 96 08/30/19 03:22 36.3 C L 81 18 119/66 97 Laboratory Results Laboratory Results - last 24 hr 08/29/19 08/29/19 08/29/19 14:35 14:35 14:35 WBC 9.73 RBC 4.10 L Hgb 11.7 L POC Hgb Hct 35.7 L POC Hct MCV 87.1 MCH 28.5 MCHC 32.8 RDW Std Deviation 48.0 H RDW Coeff of Marva 14.9 H Plt Count 295 MPV 9.6 Immature Gran % (Auto) 0.2 Neut % (Auto) 57.2 Lymph % (Auto) 34.2 [place] % (Auto) 7.0 Eos % (Auto) 1.1 Baso % (Auto) 0.3 Immature Gran # (Auto) 0.02 Neut # (Auto) 5.56 Lymph # (Auto) 3.33 [place] # (Auto) 0.68 H Eos # (Auto) 0.11 Baso # (Auto) 0.03 PT 10.5 INR 1.0 APTT 26.5 PTT Ratio 0.9 POC Sodium Sodium 133 L POC Potassium Potassium 5.1 POC Chloride Chloride 99 Carbon Dioxide 27 POC Total CO2 Anion Gap 7.0 POC Anion Gap POC BUN BUN 28 H Creatinine 1.37 POC Creatinine Est Cr Clr Drug Dosing 68.3 Est GFR ( Amer) 59.7 Est GFR (Non-Af Amer) 51.5 BUN/Creatinine Ratio 20.1 H Glucose 112 H POC Glucose POC Glucose (other) Lactate Calcium 9.0 POC Ioniz Calcium Stan Magnesium 1.8 Total Bilirubin 0.3 AST 13 L ALT 27 Alkaline Phosphatase 132 H Troponin I 0.052 H* Total Protein 8.3 H Albumin 3.3 L Globulin 5.0 H Albumin/Globulin Ratio 0.7 L Lipase 231 Urine Color Urine Appearance Urine pH Ur Specific [place] Urine Protein Urine Glucose (UA) Urine Ketones Urine Blood Urine Nitrite Urine Bilirubin Urine Urobilinogen Ur Leukocyte Esterase Hepatitis C Ab Screen 08/29/19 08/29/19 08/29/19 14:44 14:44 15:01 WBC RBC Hgb POC Hgb 11.9 L Hct POC Hct 35 L MCV MCH MCHC RDW Std Deviation RDW Coeff of Marva Plt Count MPV Immature Gran % (Auto) Neut % (Auto) Lymph % (Auto) [place] % (Auto) Eos % (Auto) Baso % (Auto) Immature Gran # (Auto) Neut # (Auto) Lymph # (Auto) [place] # (Auto) Eos # (Auto) Baso # (Auto) PT INR APTT PTT Ratio POC Sodium 134 L Sodium POC Potassium 5.1 H Potassium POC Chloride 97 L Chloride Carbon Dioxide POC Total CO2 24 Anion Gap POC Anion Gap 18.0 POC BUN 28 H BUN Creatinine POC Creatinine 1.2 Est Cr Clr Drug Dosing Est GFR ( Amer) Est GFR (Non-Af Amer) BUN/Creatinine Ratio Glucose POC Glucose POC Glucose (other) 117 H Lactate 3.3 H* Calcium POC Ioniz Calcium Stan 1.20 Magnesium Total Bilirubin AST ALT Alkaline Phosphatase Troponin I Total Protein Albumin Globulin Albumin/Globulin Ratio Lipase Urine Color Yellow Urine Appearance Clear Urine pH 5.0 Ur Specific [place] 1.012 Urine Protein Negative Urine Glucose (UA) Negative Urine Ketones Negative Urine Blood Negative Urine Nitrite Negative Urine Bilirubin Negative Urine Urobilinogen Negative Ur Leukocyte Esterase Negative Hepatitis C Ab Screen 08/29/19 08/29/19 08/29/19 16:37 20:05 20:46 WBC RBC Hgb POC Hgb Hct POC Hct MCV MCH MCHC RDW Std Deviation RDW Coeff of Marva Plt Count MPV Immature Gran % (Auto) Neut % (Auto) Lymph % (Auto) [place] % (Auto) Eos % (Auto) Baso % (Auto) Immature Gran # (Auto) Neut # (Auto) Lymph # (Auto) [place] # (Auto) Eos # (Auto) Baso # (Auto) PT INR APTT PTT Ratio POC Sodium Sodium POC Potassium Potassium POC Chloride Chloride Carbon Dioxide POC Total CO2 Anion Gap POC Anion Gap POC BUN BUN Creatinine POC Creatinine Est Cr Clr Drug Dosing Est GFR ( Amer) Est GFR (Non-Af Amer) BUN/Creatinine Ratio Glucose POC Glucose 157 H POC Glucose (other) Lactate 2.6 H* Calcium POC Ioniz Calcium Stan Magnesium Total Bilirubin AST ALT Alkaline Phosphatase Troponin I 0.607 H* Total Protein Albumin Globulin Albumin/Globulin Ratio Lipase Urine Color Urine Appearance Urine pH Ur Specific [place] Urine Protein Urine Glucose (UA) Urine Ketones Urine Blood Urine Nitrite Urine Bilirubin Urine Urobilinogen Ur Leukocyte Esterase Hepatitis C Ab Screen 08/29/19 08/30/19 08/30/19 20:46 02:07 02:07 WBC 8.02 RBC 3.86 L Hgb 11.0 L POC Hgb Hct 33.8 L POC Hct MCV 87.6 MCH 28.5 MCHC 32.5 RDW Std Deviation 49.1 H RDW Coeff of Marva 15.2 H Plt Count 271 MPV 8.9 Immature Gran % (Auto) Neut % (Auto) Lymph % (Auto) [place] % (Auto) Eos % (Auto) Baso % (Auto) Immature Gran # (Auto) Neut # (Auto) Lymph # (Auto) [place] # (Auto) Eos # (Auto) Baso # (Auto) PT INR APTT PTT Ratio POC Sodium Sodium POC Potassium Potassium POC Chloride Chloride Carbon Dioxide POC Total CO2 Anion Gap POC Anion Gap POC BUN BUN Creatinine POC Creatinine Est Cr Clr Drug Dosing Est GFR ( Amer) Est GFR (Non-Af Amer) BUN/Creatinine Ratio Glucose POC Glucose POC Glucose (other) Lactate 2.6 H* Calcium POC Ioniz Calcium Stan Magnesium Total Bilirubin AST ALT Alkaline Phosphatase Troponin I Total Protein Albumin Globulin Albumin/Globulin Ratio Lipase Urine Color Urine Appearance Urine pH Ur Specific [place] Urine Protein Urine Glucose (UA) Urine Ketones Urine Blood Urine Nitrite Urine Bilirubin Urine Urobilinogen Ur Leukocyte Esterase Hepatitis C Ab Screen Neg 08/30/19 08/30/19 08/30/19 02:07 07:17 07:38 WBC RBC Hgb POC Hgb Hct POC Hct MCV MCH MCHC RDW Std Deviation RDW Coeff of Marva Plt Count MPV Immature Gran % (Auto) Neut % (Auto) Lymph % (Auto) [place] % (Auto) Eos % (Auto) Baso % (Auto) Immature Gran # (Auto) Neut # (Auto) Lymph # (Auto) [place] # (Auto) Eos # (Auto) Baso # (Auto) PT INR APTT PTT Ratio POC Sodium Sodium 137 136 POC Potassium Potassium 4.3 D 4.1 POC Chloride Chloride 103 102 Carbon Dioxide 29 28 POC Total CO2 Anion Gap 5.0 5.0 POC Anion Gap POC BUN BUN 29 H 25 H Creatinine 1.39 1.16 POC Creatinine Est Cr Clr Drug Dosing 66.1 79.1 Est GFR ( Amer) 58.7 73.0 Est GFR (Non-Af Amer) 50.6 63.0 BUN/Creatinine Ratio 20.6 H 21.6 H Glucose 85 96 POC Glucose 108 H POC Glucose (other) Lactate Calcium 8.6 8.8 POC Ioniz Calcium Stan Magnesium 1.9 Total Bilirubin 0.3 AST 12 L ALT 23 Alkaline Phosphatase 118 H Troponin I 0.726 H* 0.568 H* Total Protein 7.3 Albumin 3.1 L Globulin 4.2 H Albumin/Globulin Ratio 0.7 L Lipase Urine Color Urine Appearance Urine pH Ur Specific [place] Urine Protein Urine Glucose (UA) Urine Ketones Urine Blood Urine Nitrite Urine Bilirubin Urine Urobilinogen Ur Leukocyte Esterase Hepatitis C Ab Screen 08/30/19 08/30/19 08/30/19 07:38 08:49 11:46 WBC RBC Hgb POC Hgb Hct POC Hct MCV MCH MCHC RDW Std Deviation RDW Coeff of Marva Plt Count MPV Immature Gran % (Auto) Neut % (Auto) Lymph % (Auto) [place] % (Auto) Eos % (Auto) Baso % (Auto) Immature Gran # (Auto) Neut # (Auto) Lymph # (Auto) [place] # (Auto) Eos # (Auto) Baso # (Auto) PT INR APTT 29.1 PTT Ratio 1.0 POC Sodium Sodium POC Potassium Potassium POC Chloride Chloride Carbon Dioxide POC Total CO2 Anion Gap POC Anion Gap POC BUN BUN Creatinine POC Creatinine Est Cr Clr Drug Dosing Est GFR ( Amer) Est GFR (Non-Af Amer) BUN/Creatinine Ratio Glucose POC Glucose 230 H POC Glucose (other) Lactate 1.5 Calcium POC Ioniz Calcium Stan Magnesium Total Bilirubin AST ALT Alkaline Phosphatase Troponin I Total Protein Albumin Globulin Albumin/Globulin Ratio Lipase Urine Color Urine Appearance Urine pH Ur Specific [place] Urine Protein Urine Glucose (UA) Urine Ketones Urine Blood Urine Nitrite Urine Bilirubin Urine Urobilinogen Ur Leukocyte Esterase Hepatitis C Ab Screen (1) CVA (cerebrovascular accident) CVA mechanism: unspecified Qualified Code(s): I63.9 - Cerebral infarction, unspecified
--- NOTE | 2019-08-30 15:50 | Hospitalist Progress Note ---
Date of Service August 30, 2019 Assessment & Plan (1) SVT (supraventricular tachycardia): H/O paroxysmal SVT presented with symptomatic SVT /HR 140's -received adenosine in ER appreciate input from Cardiology Toprol Xl dose increased to 75 mg daily cont to monitor in PCU (2) Elevated lactic acid level: resolved , normal level thsi am no evidence of infection No fever/chills. Pt afebrile in ER. No leukocytosis. No urinary symptoms. UA a ppears clear today, CXR without infiltrate, CT Abd/pelvis without diverticulitis, colitis - possible due to SVT leading to hypotensive episode /poor perfusion resolved after HR and BP in normal range with med adjustment and getting IV fluid (3) Elevated troponin: mild elevation of troponin Suspect elevated secondary to demand ischemia from SVT . No CP cardiology following -Continue aspirin, metoprolol, statin (4) CAD (coronary artery disease): no active issues stable cont cardiac meds (5) Ischemic cardiomyopathy: Echo on 08/12/2020 EF: 40%, grade 1 diastolic dysfunction, large sized apical, septal, anteroseptal wall motion abnormality with akinesis, small pericardial effusion -Continue aspirin, statin, metoprolol with adjusted dosing as above stable vol status (6) Hypertension: BP stable now - losartan and lisinopril kept on hold will resume tomorrow -Continue metoprolol succinate with adjusted dosing as above (7) CVA (cerebrovascular accident): Residual right sided weakness -Continue aspirin, statin -Fall precautions (8) Diabetes mellitus, type II: A1c: 7.8 on 08/12/2019 -Hold glipizide, metformin, Victoza -NovoLog sliding scale per protocol (9) Hypothyroidism: TSH: 6.8 on 08/12/2019 -Continue levothyroxine DVT Prophylaxis -Heparin SQ Full Code as per discussion with pt Follows with Dr Hobbs in [place] for routine care Admission and Anticipated Discharge Date Admission Date: August 29, 2019 Subjective pt says he feels fine today no complain of palpitation , no SOB or chest pain no dizzy spell Review of Systems Review of Systems: All systems reviewed & are unremarkable except as noted in HPI & below Respiratory: no cough, no dyspnea and no dyspnea on exertion Cardiovascular: no chest pain, no dyspnea, no orthopnea, no palpitations, no lightheadedness, no syncope and no edema Physical Exam Constitutional: WD/WN, vitals as above Eyes: PERRL, conjunctivae normal, anicteric sclerae ENMT: external ear and nose normal, oropharynx normal Neck: trachea midline, no thyromegaly Respiratory: normal respiratory effort, lungs clear to auscultation Cardiovascular: RRR, no murmur, no edema Gastrointestinal (Abdomen): normal bowel sounds, soft, nontender, no hepatosplenomegaly Musculoskeletal: no cyanosis or clubbing, extremities motor strength 5/5 Skin: no rashes, warm and dry Neurologic: PERRL, EOMI, accommodation nl, no face palsy, no dysarthria Psychiatric: A+Ox3, euthymic affect Results & Data Results & Data ([facility]) Vital Signs (Past 12 Hours) Vital Signs Temp Pulse Resp BP Pulse Ox 08/30/19 15:15 36.4 C L 78 18 134/54 L 97 08/30/19 11:18 36.4 C L 74 18 148/78 H 98 08/30/19 08:55 36.4 C L 80 20 148/72 H 96 (1) CVA (cerebrovascular accident) CVA mechanism: unspecified Qualified Code(s): I63.9 - Cerebral infarction, unspecified
[2019-08-30] MEDS: CETIRIZINE HCL 10 MG TABLET PO SCH (20:30)
[2019-08-30] MEDS: ATORVASTATIN 40 MG TAB PO SCH (20:30)
--- NOTE | 2019-08-30 22:06 | Electrocardiogram Report ---
Test Reason : Blood Pressure : / mmHG Vent. Rate : 141 BPM Atrial Rate : 182 BPM P-R Int : 000 ms QRS Dur : 092 ms QT Int : 310 ms P-R-T Axes : 000 036 -10 degrees QTc Int : 474 ms Supraventricular tachycardia Septal infarct Nonspecific ST abnormality Abnormal ECG When compared with ECG of 29-AUG-2019 14:24, No significant change was found Confirmed by Yemi Sandoval ([id number]) on 08/30/2019 10:06:00 PM Referred By: REFERRED SELF Confirmed By:Yemi Sandoval
--- NOTE | 2019-08-30 22:07 | Electrocardiogram Report ---
Test Reason : Blood Pressure : / mmHG Vent. Rate : 108 BPM Atrial Rate : 108 BPM P-R Int : 148 ms QRS Dur : 106 ms QT Int : 330 ms P-R-T Axes : 043 033 047 degrees QTc Int : 442 ms Sinus tachycardia Septal infarct , age undetermined Abnormal ECG When compared with ECG of 29-AUG-2019 14:37, Sinus rhythm has replaced Supraventricular tachycardia Nonspecific T wave abnormality, improved in Inferior leads Confirmed by Yemi Sandoval ([id number]) on 08/30/2019 10:06:58 PM Referred By: REFERRED SELF Confirmed By:Yemi Sandoval
[2019-08-31] MEDS: HEPARIN SOD 5,000 UNIT/0.5 ML VIAL SQ SCH ×3 (05:34→21:08)
[2019-08-31] MEDS: LEVOTHYROXINE SODIUM 25 MCG TABLET PO SCH (05:35)
--- NOTE | 2019-08-31 05:47 | Electrocardiogram Report ---
Test Reason : Blood Pressure : / mmHG Vent. Rate : 082 BPM Atrial Rate : 082 BPM P-R Int : 160 ms QRS Dur : 108 ms QT Int : 396 ms P-R-T Axes : 051 009 021 degrees QTc Int : 462 ms Normal sinus rhythm Normal ECG When compared with ECG of 29-AUG-2019 14:40, Criteria for Septal infarct are no longer Present Confirmed by Yemi Sandoval ([id number]) on 08/31/2019 5:47:02 AM Referred By: REFERRED SELF Confirmed By:Yemi Sandoval
--- NOTE | 2019-08-31 08:24 | Cardiology Consultation ---
Date of Consultation August 31, 2019 Assessment & Plan (1) Paroxysmal SVT (supraventricular tachycardia): Discussed with patient an EPS with possible ablation procedure and all the potential risks. Given his frequent episodes despite BB therapy it is best option for his SVT. We will get him scheduled in September as that is next available From EP perspective ok for discharge with BB (2) Ischemic cardiomyopathy: Continue Toprol, losartan, atorvastatin, aspirin (3) History of left common carotid artery stent placement: (4) CVA (cerebrovascular accident): With chronic seizure disorder visual field deficit-stable (5) Lactic acidemia: probably secondary to sustained arrhythmia History of Present Illness Reason for Consultation: SVT Requesting Physician: Dr. Pearce Attending Physician: Dona Etienne MD History of Present Illness Pt again had sudden onset palpitations with associated lightheadedness; severity high; ended up breaking SVT with adenosine this is his 2nd admission for SVT in the past 2 weeks Allergies Allergy/AdvReac Type Severity Reaction Status Date / Time tramadol [From Ultram] Allergy Severe Seizure Verified 08/29/19 16:14 haloperidol [From Haldol] Allergy Unknown Unknown Verified 08/29/19 16:14 Home Medications Home Medications Medication Instructions Recorded Confirmed Type acetaminophen 650 mg PO Q4H PRN MDD 10 02/06/19 08/29/19 History TABLETS/DAILY ascorbic acid (vitamin C) 1,000 mg PO BID 02/06/19 08/29/19 History aspirin 325 mg PO QAM 02/06/19 08/29/19 History atorvastatin 40 mg PO HS 02/06/19 08/29/19 History famotidine 20 mg PO BIDM 02/06/19 08/29/19 History folic acid 1 mg PO QAM 02/06/19 08/29/19 History furosemide 40 mg PO QAM 02/06/19 08/29/19 History glipizide 10 mg PO BIDM 02/06/19 08/29/19 History levothyroxine 25 mcg PO DAILYBB 02/06/19 08/29/19 History metformin 1,000 mg PO QAM 02/06/19 08/29/19 History cetirizine 10 mg PO HS 08/12/19 08/29/19 History escitalopram oxalate [Lexapro] 10 mg PO QAM 08/12/19 08/29/19 History finasteride 5 mg PO QDL 08/12/19 08/29/19 History losartan 50 mg PO QAM 08/12/19 08/29/19 History metoprolol succinate 50 mg PO QAM 08/12/19 08/29/19 History levetiracetam 750 mg PO Q12H 08/29/19 08/29/19 History metformin 500 mg PO QPM 08/29/19 08/29/19 History Patient History Medical History Acute respiratory failure with hypoxia MARIELLE (acute kidney injury) Anemia CAD (coronary artery disease) Carotid artery occlusion Cerebral hypoperfusion CHF (congestive heart failure) CVA (cerebral vascular accident) CVA (cerebrovascular accident) (Acute) Diabetes Diabetes mellitus, type II GERD (gastroesophageal reflux disease) History of common carotid artery stent placement HLD (hyperlipidemia) Hypertension Hypomagnesemia Hypothyroidism Ischemic cardiomyopathy Paroxysmal SVT (supraventricular tachycardia) (Acute) Pulmonary edema Seizure (Acute) UTI (urinary tract infection) Family History Father Coronary heart disease Stroke Social History Preferred Language: Kosovan Communication Ability: Effective Cotton Farmer Required: No Beliefs That Will Affect Care: None Current Living Situation: Spouse Current Living Situation Comment: LIVES WITH 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 Other Information That Helps Us Care for You: No Feels Safe at Home: Yes Safety Concerns: Feels Safe At This Time Smoking Status: Former smoker Do You Dip or Chew Tobacco: No ; Second Hand Exposure: No ; Tobacco Cessation Education Requested by Patient: No Hx Alcohol Use: No Hx Substance Use: No Review of Systems Review of Systems: All systems reviewed & are unremarkable except as noted in HPI & below Physical Exam Physical Exam: aaox3, NAD NC/AT, EOMI Supple No JVD Nrl S1/S2, No murmur CTA b/l no w/r/r soft nt/nd no LE edema b/l skin intact b/l leg weakness Results & Data ([facility]) Vital Signs (Past 12 Hours) Vital Signs Temp Pulse Pulse Resp BP Pulse Ox 08/31/19 03:54 36.6 C 76 16 129/76 96 08/30/19 23:43 36.9 C 77 16 158/79 H 97 08/30/19 23:20 79 Laboratory Results Abnormal Lab Results 08/30/19 08/30/19 08/30/19 07:38 07:38 08:49 APTT 29.1 PTT Ratio 1.0 Sodium 136 Potassium 4.1 Chloride 102 Carbon Dioxide 28 Anion Gap 5.0 BUN 25 H Creatinine 1.16 Est Cr Clr Drug Dosing 79.1 Est GFR ( Amer) 73.0 Est GFR (Non-Af Amer) 63.0 BUN/Creatinine Ratio 21.6 H Glucose 96 POC Glucose Lactate 1.5 Calcium 8.8 Total Bilirubin 0.3 AST 12 L ALT 23 Alkaline Phosphatase 118 H Troponin I 0.568 H* Total Protein 7.3 Albumin 3.1 L Globulin 4.2 H Albumin/Globulin Ratio 0.7 L 08/30/19 08/30/19 08/30/19 11:46 16:20 20:20 APTT PTT Ratio Sodium Potassium Chloride Carbon Dioxide Anion Gap BUN Creatinine Est Cr Clr Drug Dosing Est GFR ( Amer) Est GFR (Non-Af Amer) BUN/Creatinine Ratio Glucose POC Glucose 230 H 117 H 155 H Lactate Calcium Total Bilirubin AST ALT Alkaline Phosphatase Troponin I Total Protein Albumin Globulin Albumin/Globulin Ratio 08/31/19 07:04 APTT PTT Ratio Sodium Potassium Chloride Carbon Dioxide Anion Gap BUN Creatinine Est Cr Clr Drug Dosing Est GFR ( Amer) Est GFR (Non-Af Amer) BUN/Creatinine Ratio Glucose POC Glucose 147 H Lactate Calcium Total Bilirubin AST ALT Alkaline Phosphatase Troponin I Total Protein Albumin Globulin Albumin/Globulin Ratio Diagnostic Findings ECG and echo reviewed Medications Administered Current Inpatient Medications Acetaminophen (Tylenol) 650 mg PO Q4H PRN PRN Reason: Pain or Fever Stop: 09/28/19 18:32 Ascorbic Acid (Vitamin C) 1,000 mg PO BID DHAVAL Stop: 09/28/19 20:59 Last Admin: 08/30/19 20:30 Dose: 1,000 mg Documented by: Aspirin (Ecotrin) 325 mg PO QAM DHAVAL Stop: 09/29/19 08:59 Last Admin: 08/30/19 08:39 Dose: 325 mg Documented by: Atorvastatin Calcium (Lipitor) 40 mg PO HS DHAVAL Stop: 09/28/19 20:59 Last Admin: 08/30/19 20:30 Dose: 40 mg Documented by: Cetirizine HCl (Zyrtec) 10 mg PO HS [facility] Stop: 09/28/19 20:59 Last Admin: 08/30/19 20:30 Dose: 10 mg Documented by: Dextrose (Dextrose 50%) 25 - 50 ml IV UD PRN; Protocol PRN Reason: Hypoglycemia Protocol Stop: 09/28/19 18:32 Escitalopram Oxalate (Lexapro Tab) 10 mg PO QAM [facility] Stop: 09/29/19 08:59 Last Admin: 08/30/19 08:38 Dose: 10 mg Documented by: Famotidine (Pepcid) 20 mg PO BIDM [facility] Stop: 09/29/19 07:59 Last Admin: 08/30/19 17:44 Dose: 20 mg Documented by: Finasteride (Proscar) 5 mg PO QDL [facility] Stop: 09/29/19 11:29 Last Admin: 08/30/19 12:36 Dose: 5 mg Documented by: Folic Acid (Folvite) 1 mg PO QAM [facility] Stop: 09/29/19 08:59 Last Admin: 08/30/19 08:39 Dose: 1 mg Documented by: Glucagon (Glucagen) 1 mg SQ UD PRN; Protocol PRN Reason: Hypoglycemia Protocol Stop: 09/28/19 18:32 Glucose (Dex4 Glucose) 4 - 8 tabs PO UD PRN; Protocol PRN Reason: Hypoglycemia Protocol Stop: 09/28/19 18:32 Glucose (Glucose 40%) 15 - 30 gm PO UD PRN; Protocol PRN Reason: Hypoglycemia Protocol Stop: 09/28/19 18:32 Heparin Sodium (Porcine) (Heparin Sodium (Porcine)) 5,000 units SQ Q8 DHAVAL Stop: 09/28/19 21:59 Last Admin: 08/31/19 05:34 Dose: 5,000 units Documented by: Insulin Aspart (Novolog Flexpen) 0 units SC ACHS [facility] Stop: 09/28/19 20:59 Last Admin: 08/30/19 20:32 Dose: Not Given Documented by: Levetiracetam (Keppra) 750 mg PO Q12H [facility] Stop: 09/28/19 19:59 Last Admin: 08/30/19 20:30 Dose: 750 mg Documented by: Levothyroxine Sodium (Synthroid) 25 mcg PO DAILYBB [facility] Stop: 09/29/19 06:29 Last Admin: 08/31/19 05:35 Dose: 25 mcg Documented by: Metoprolol Succinate (Toprol Xl) 75 mg PO QAM [facility] Stop: 09/29/19 08:59 Last Admin: 08/30/19 08:39 Dose: 75 mg Documented by: Miscellaneous (Carbohydrates For Hypoglycemia) 15 - 30 gm PO UD PRN PRN Reason: Hypoglycemia Protocol Stop: 09/28/19 18:32 Nystatin (Mycostatin) 1 appln EXT BID [facility] Stop: 09/28/19 20:59 Last Admin: 08/30/19 20:30 Dose: 1 appln Documented by: (1) CVA (cerebrovascular accident) CVA mechanism: unspecified Qualified Code(s): I63.9 - Cerebral infarction, unspecified
[2019-08-31 08:32] LABS: BUN Creatinine Ratio 16.4 (10-20); Calcium 9.3 mg/dl (8.5-10.1); Creatinine Clr Calc Pharmacy 70.8 ml/min; Est GFR (African American) 64.2; Est GFR (Non-African American) 55.4; Potassium 4.5 mmol/L (3.5-5.1)
[2019-08-31] MEDS: FINASTERIDE 5 MG TAB PO SCH (08:40)
[2019-08-31] MEDS: ESCITALOPRAM OXALATE 10 MG TAB PO SCH (08:40)
[2019-08-31] MEDS: ASPIRIN 325 MG ECTAB PO SCH (08:40)
[2019-08-31] MEDS: FOLIC ACID 1 MG TAB PO SCH (08:40)
[2019-08-31] MEDS: levETIRAcetam 250 MG TAB PO SCH ×2 (08:40→20:21)
[2019-08-31] MEDS: METOPROLOL SUCC 25MG EXT REL TAB PO SCH (08:40)
[2019-08-31] MEDS: ASCORBIC ACID 500 MG TAB PO SCH ×2 (08:41→20:21)
[2019-08-31] MEDS: INSULIN ASPART 100 UNITS/ML 3 ML PEN SC SCH ×4 (08:42→21:08)
[2019-08-31] MEDS: FAMOTIDINE 20 MG TAB PO SCH ×2 (08:42→17:25)
[2019-08-31] MEDS: NYSTATIN POWDER 15GM BTL EXT SCH ×2 (08:42→20:26)
--- NOTE | 2019-08-31 17:22 | Hospitalist Progress Note ---
Date of Service August 31, 2019 Assessment & Plan (1) SVT (supraventricular tachycardia): H/O paroxysmal SVT presented with symptomatic SVT /HR 140's -received adenosine in ER appreciate input from Cardiology Toprol Xl dose increased to 75 mg daily cont to monitor in PCU appreciate input from EP cardiology pt will need EP eval out pt for possible cardiac ablation for symptomatic SVT Dr Mtz will schedule procedure in September (2) Elevated lactic acid level: resolved , normal level thsi am no evidence of infection No fever/chills. Pt afebrile in ER. No leukocytosis. No urinary symptoms. UA appears clear today, CXR without infiltrate, CT Abd/pelvis without diverticulitis, colitis - possible due to SVT leading to hypotensive episode /poor perfusion resolved after HR and BP in normal range with med adjustment and getting IV f luid (3) Elevated troponin: mild elevation of troponin Suspect elevated secondary to demand ischemia from SVT . No CP cardiology following -Continue aspirin, metoprolol dose adjusted , statin (4) CAD (coronary artery disease): no active issues stable cont cardiac meds (5) Ischemic cardiomyopathy: Echo on 08/12/2020 EF: 40%, grade 1 diastolic dysfunction, large sized apical, septal, anteroseptal wall motion abnormality with akinesis, small pericardial effusion -Continue aspirin, statin, metoprolol with adjusted dosing as above stable vol status (6) Hypertension: BP stable now - losartan and lisinopril kept on hold will resume tomorrow -Continue metoprolol succinate with adjusted dosing as above (7) CVA (cerebrovascular accident): Residual right sided weakness -Continue aspirin, statin -Fall precautions (8) Diabetes mellitus, type II: A1c: 7.8 on 08/12/2019 -Hold glipizide, metformin, Victoza -NovoLog sliding scale per protocol (9) Hypothyroidism: TSH: 6.8 on 08/12/2019 -Continue levothyroxine DVT Prophylaxis -Heparin SQ Full Code as per discussion with pt Follows with Dr Hobbs in [place] for routine care possible discharge tomorrow with close follow up with EP cardiology if HR remains stable Admission and Anticipated Discharge Date Admission Date: August 29, 2019 Subjective no complain of palpitation or SOB no chest pain Physical Exam Constitutional: WD/WN, vitals as above Eyes: PERRL, conjunctivae normal, anicteric sclerae ENMT: external ear and nose normal, oropharynx normal Neck: trachea midline, no thyromegaly Respiratory: normal respiratory effort, lungs clear to auscultation Cardiovascular: RRR, no murmur, no edema Gastrointestinal (Abdomen): normal bowel sounds, soft, nontender, no hepatosplenomegaly Musculoskeletal: no cyanosis or clubbing, extremities motor strength 5/5 Skin: no rashes, warm and dry Neurologic: PERRL, EOMI, accommodation nl, no face palsy, no dysarthria Psychiatric: A+Ox3, euthymic affect Results & Data Results & Data ([facility]) Vital Signs (Past 12 Hours) Vital Signs Temp Pulse Resp BP Pulse Ox 08/31/19 17:02 36.5 C 72 18 151/72 H 100 08/31/19 12:37 37.0 C 74 18 137/72 98 (1) CVA (cerebrovascular accident) CVA mechanism: unspecified Qualified Code(s): I63.9 - Cerebral infarction, unspecified
[2019-08-31] MEDS: ATORVASTATIN 40 MG TAB PO SCH (20:21)
[2019-08-31] MEDS: CETIRIZINE HCL 10 MG TABLET PO SCH (20:21)
[2019-09-01] MEDS: HEPARIN SOD 5,000 UNIT/0.5 ML VIAL SQ SCH (06:11)
[2019-09-01] MEDS: LEVOTHYROXINE SODIUM 25 MCG TABLET PO SCH (06:12)
[2019-09-01] MEDS: ASCORBIC ACID 500 MG TAB PO SCH (08:25)
[2019-09-01] MEDS: ASPIRIN 325 MG ECTAB PO SCH (08:25)
[2019-09-01] MEDS: METOPROLOL SUCC 25MG EXT REL TAB PO SCH (08:26)
[2019-09-01] MEDS: FAMOTIDINE 20 MG TAB PO SCH (08:26)
[2019-09-01] MEDS: ESCITALOPRAM OXALATE 10 MG TAB PO SCH (08:26)
[2019-09-01] MEDS: FOLIC ACID 1 MG TAB PO SCH (08:27)
[2019-09-01] MEDS: levETIRAcetam 250 MG TAB PO SCH (08:28)
[2019-09-01] MEDS: INSULIN ASPART 100 UNITS/ML 3 ML PEN SC SCH ×2 (08:29→12:50)
[2019-09-01] MEDS: NYSTATIN POWDER 15GM BTL EXT SCH (09:33)
--- NOTE | 2019-09-01 11:55 | Discharge Summary ---
Date of Service September 01, 2019 Admission HPI Per Admitting Provider Pt is 73 y/o M with PMH paroxysmal SVT, CAD, ischemic cardiomyopathy EF: 40%, HTN, DM II, CVA in 2019 with right-sided weakness, visual impairment, hypothyroidism presented to ER with complaint of palpitations. Patient states this morning around 9 AM started with palpitations and had one episode of vomiting. Palpitations persisted until ER arrival. Patient denies any associated dizziness, lightheadedness, chest pain, diaphoresis, shortness of breath. He reports took levothyroxine and Lasix in the morning and takes his other medications at noon which included his metoprolol. Denies any fever, chills. Patient reports chronic intermittent productive cough for several months. Denies SOB. Denies any other nausea, vomiting. Patient reports constipation has been taking stool softeners twice a day and yesterday able to have BM which was soft and today with loose BM. He has since held his stool softeners. Denies [place], dizziness, syncope, neck pain, orthopnea, sore throat, choking, otalgia, rhinorrhea, abdominal pain, paresthesias, worsening or different extremity weakness, extremity edema, rashes, urinary symptoms. Recent hospital admission 08/12/19-08/14/19 for SVT, e.coli UTI that was initially treated with Rocephin then cefdinir x 5 days. Pt reports finished antibiotic course. Principal Diagnosis RAPID HEART RATE SVT ( SUPRAVENTRICULAR TACHYCARDIA ) Discharge Exam Constitutional WD/WN, vitals as above Eyes PERRL, conjunctivae normal, anicteric sclerae ENMT external ear and nose normal, oropharynx normal Neck trachea midline, no thyromegaly Respiratory normal respiratory effort, lungs clear to auscultation Cardiovascular RRR, no murmur, no edema Gastrointestinal (Abdomen) normal bowel sounds, soft, nontender, no hepatosplenomegaly Musculoskeletal no cyanosis or clubbing, extremities motor strength 5/5 Skin no rashes, warm and dry Neurologic PERRL, EOMI, accommodation nl, no face palsy, no dysarthria Psychiatric A+Ox3, euthymic affect Discharge Data Allergies Allergy/AdvReac Type Severity Reaction Status Date / Time tramadol [From Ultram] Allergy Severe Seizure Verified 08/29/19 16:14 haloperidol [From Haldol] Allergy Unknown Unknown Verified 08/29/19 16:14 Consultations 08/29/19 16:23 ED Decision to Admit Stat 08/29/19 18:33 Consult Case Management - Discharge Planning Routine 08/29/19 18:57 Consult Cardiology Routine 08/30/19 11:27 Consult Cardiology Routine Ordered Studies 08/29/19 14:37 CT angio chest PE protocol Stat 08/29/19 15:30 CT abd pelvis IV con only Stat Hospital Course (1) SVT (supraventricular tachycardia): H/O paroxysmal SVT presented with symptomatic SVT /HR 140's -received adenosine in ER appreciate input from Cardiology Toprol Xl dose increased to 75 mg daily appreciate input from EP cardiology pt will need EP eval out pt for possible cardiac ablation for symptomatic SVT Dr Dietz will schedule procedure in September stable to be discharged home with increased dose of beta karley per cardiology (2) Elevated lactic acid level: resolved , normal level thsi am no evidence of infection No fever/chills. Pt afebrile in ER. No leukocytosis. No urinary symptoms. UA appears clear today, CXR without infiltrate, CT Abd/pelvis without diverticulitis, colitis - possible due to SVT leading to hypotensive episode /poor perfusion resolved after HR and BP in normal range with med adjustment and getting IV fluid (3) Elevated troponin: mild elevation of troponin Suspect elevated secondary to demand ischemia from SVT . No CP cardiology following -Continue aspirin, metoprolol dose adjusted , statin (4) CAD (coronary artery disease): no active issues stable cont cardiac meds (5) Ischemic cardiomyopathy: Echo on 08/12/2020 EF: 40%, grade 1 diastolic dysfunction, large sized apical, septal, anteroseptal wall motion abnormality with akinesis, small pericardial effusion -Continue aspirin, statin, metoprolol with adjusted dosing as above stable vol status (6) Hypertension: BP stable now - losartan and lisinopril kept on hold will resume tomorrow -Continue metoprolol succinate with adjusted dosing as above (7) CVA (cerebrovascular accident): Residual right sided weakness -Continue aspirin, statin -Fall precautions (8) Diabetes mellitus, type II: A1c: 7.8 on 08/12/2019 -Hold glipizide, metformin, Victoza -NovoLog sliding scale per protocol (9) Hypothyroidism: TSH: 6.8 on 08/12/2019 -Continue levothyroxine DVT Prophylaxis -Heparin SQ Full Code as per discussion with pt Follows with Dr Hobbs in [place] for routine care stable to be discharged home today Total Time Total Time Spent Total Time Spent (In Minutes): 40 mins Total Time Includes: Examination of the Patient, Discharge Planning and Medication Reconciliation Discharge Plan Discharge Items Patient Disposition: Home - Self-Care Reason For Visit: SVT Discharge Diagnosis: RAPID HEART RATE SVT ( SUPRAVENTRICULAR TACHYCARDIA ) Activity: As commented below Activity Comment: TOLERATED Non-emergency contact: Primary Care Provider Call non-emergency contact if: you have any medication questions Follow-up/Referrals: Gayle Dietz DO [Physician] - (OFFICE WILL CALL YOU WITH THE SCHEDULE) Raysa Hobbs M.D. [Primary Care Provider] - (HOSPITAL FOLLOW UP IN 1 WEEK ) Diet: Heart Healthy Addtl Attending Provider Instructions: FOLLOW UP WITH YOUR FAMILY PHYSICIAN IN A WEEK FOLLOW UP WITH CARDIOLOGY DR DIETZ FOR CARDIAC ABLATION PROCEDURE FOR RAPID HEART RATE PLEASE CALL YOUR FAMILY PHYSICIAN OR COME TO ER WITH ANY RECURRENCE OF SYMPTOMS : DIZZY SPELL ,PASSING OUT , SHORTNESS OF BREATH , CHEST HEAVINESS Pending Studies at Discharge: No Stand-Alone Forms: [employer] [place], Smoking Cessation Medications and DC Order Prescriptions: New metoprolol succinate 25 mg Tablet Extended Release 24 Hr 75 mg PO QAM 30 Days Qty: 90 RF: 3 Continued losartan 50 mg Tablet 50 mg PO QAM RF: 0 cetirizine 10 mg Tablet 10 mg PO HS RF: 0 finasteride 5 mg Tablet 5 mg PO QDL RF: 0 escitalopram oxalate [Lexapro] 10 mg Tablet 10 mg PO QAM RF: 0 metformin 500 mg Tablet 500 mg PO QPM RF: 0 levetiracetam 750 mg tablet 750 mg PO Q12H RF: 0 furosemide 40 mg tablet 40 mg PO QAM RF: 0 atorvastatin 40 mg tablet 40 mg PO HS RF: 0 glipizide 10 mg Tablet 10 mg PO BIDM RF: 0 levothyroxine 25 mcg tablet 25 mcg PO DAILYBB RF: 0 metformin 1,000 mg tablet 1,000 mg PO QAM RF: 0 folic acid 1 mg Tablet 1 mg PO QAM RF: 0 aspirin 325 mg Tablet 325 mg PO QAM RF: 0 ascorbic acid (vitamin C) 500 mg Tablet 1,000 mg PO BID RF: 0 acetaminophen 325 mg Tablet 650 mg PO Q4H MDD 10 TABLETS/DAILY PRN (Reason: Fever Or Pain) RF: 0 famotidine 20 mg Tablet 20 mg PO BIDM RF: 0 Discontinued metoprolol succinate 50 mg Tablet Extended Release 24 Hr 50 mg PO QAM RF: 0 Discharge Orders: Discharge Order (Routine); Ordered 09/01/19 Ordered By: Dona Etienne Admission Data Admit Date/Time: 08/29/19 17:06 Attending Provider: Dona Etienne Admit Provider: Angus Stein Primary Care Provider: Raysa Hobbs Other Providers: Angus Stein ; Jeffry Pearce ; Gayle Dietz Other Interventions: Discharge Summary Assessment (RN) Last Done: 09/01/19 13:00 DC Date/Time DO NOT enter until pt leaves facility: 09/01/19 13:24
[2019-09-01] MEDS: FINASTERIDE 5 MG TAB PO SCH (12:51)
== END 2019-09-01 13:24 | disposition home or self-care (01) | DRG 309 ==
LOC: ED 14:17 → SUATTDRO 17:06 → 2S 17:06

== ENCOUNTER 2019-09-20 11:06 | Observation (INO) ==
--- NOTE | 2019-09-20 11:35 | Pre Anesthesia Assessment ---
Date of Service September 20, 2019 Pre Sedation Assessment Cardiovascular RRR, no murmur, no edema Respiratory normal respiratory effort, lungs clear to auscultation Pre-Sedation Airway Assessment Smoking Status: Former smoker Hx Sleep Apnea: No Hx Difficult Intubation: No Short, Thick Neck: No Thyromental Distance: < 3.5 Finger Breadths Oral Cavity: + Dental Abnormalities Mallampati Class: III ASA: ASA3 NPO Status Date of Last Intake of Fluids: 09/19/19 Date of Last Intake of Solid Food: 09/19/19 Procedure Planning Contraindications for Sedation: none Current Medications Reviewed: Yes Notes The planned sedation has been discussed with the patient. Informed Consent was obtained. I have identified the patient, determined the appropriateness of sedation and have assessed the patient immediately prior to the procedure. All medicine(s) and interventions are by my order.
--- NOTE | 2019-09-20 11:36 | History & Physical Bridge Note ---
Date of Service September 20, 2019 History & Physical Bridge Note I have examined the patient, reviewed the History & Physical and in the interval since the performance of the History & Physical I have noted the following changes of clinical significance: no changes since my inpatient consult from August; pt with recurrent SVT for EPS with possible ablation
[2019-09-20] MEDS ORDERED: fentaNYL citrate 100 MCG/2 ML VIAL ONE ×2 (12:56→14:31)
[2019-09-20] MEDS ORDERED: MIDAZOLAM HCL 5 MG/ML 1 ML VIAL ONE ×2 (12:56→14:31)
[2019-09-20] MEDS ORDERED: ISOPROTERENOL HCL 0.2 MG/ML 5 ML AMP IV ONE (14:04)
[2019-09-20] MEDS ORDERED: ACETAMINOPHEN 325 MG TAB PO PRN (15:34)
--- NOTE | 2019-09-20 15:35 | Post Anesthesia Assessment ---
Date of Service September 20, 2019 Post Sedation Assessment Vital Signs Temp Resp Pulse Ox 09/20/19 11:42 37.2 C 18 97 Recovery Score Activity: Moves 4 extremities Respiration: Deep Breath/Cough Circulation: +/-20% PreAnes Value Consciousness: Fully Awake Oxygen Saturation: > 92% On Room Air Discharge Sedation Level of Care: Fast Track Phase II Post Sedation Plan On clinical assessment, the patient appears to have tolerated the sedation without complications. Patient is recovering as anticipated. Patient will continue to be monitored by nursing and may be discharged when sedation discharge criteria are met per below protocol. Upon Completions of procedure up to 15 minutes continue every 5 minute vital signs and the P.A.R. score; then discharge to a Phase I or Fast Track to Phase II per the following guidelines: * Discharge Patient to appropriate Phase II area if PAR is 8 or greater or return to pre- procedure baseline. The post - procedure orders will be as directed. * If PAR score is less than 8 or not return to pre-procedure baseline then patient will follow Phase I monitoring till PAR is reached for Phase II. The Phase I may be done in procedure room or may call to secure a Phase I area. * If naloxone or flumazenil are used for reversal, hold in Phase I for continued monitoring from when last reversal dose was given for a minimum of 60 minutes or longer pending the nurse and/or physician discretion of patient condition before discharge to Phase II. Please call the Sedation Physician to re-evaluate and complete post-note for discharge to Phase II area. Do NOT discharge from procedure sedation or Phase 1 until post- sedation evaluation note is complete by procedure /sedation MD Sedation Discharge Instructions to be given to the patient at discharge to home.
--- NOTE | 2019-09-20 15:35 | Operative Report ---
Post Operative Report Pre & Post Diagnosis Pre: SVT Post: AVNRT Operation Date: 09/20/19 12:00 <No data on this case meets the specified criteria> I identified the patient and participated in the time-out.: Yes Procedure Operation Date: 09/20/19 12:00 Actual Procedures p EPS + Ablation for SVT Flutter - DO abraham Rodgers 3D Mapping (Carto) - DO abraham Rodgers Drug Stimulation - Gayle Mtz DO Surgeon Gayle Mtz, Field Clerk none Estimated Blood Loss 5 Findings Consistent with Post-Op Diagnosis Specimens none Description of Procedure see official report I attest to the content of the Intraoperative Record and any orders documented therein. Any exceptions are noted below.
[2019-09-20] MEDS: glipiZIDE 5 MG TAB PO SCH (17:19)
[2019-09-20] MEDS: FAMOTIDINE 20 MG TAB PO SCH (17:19)
[2019-09-20] MEDS: ASCORBIC ACID 500 MG TAB PO SCH (20:20)
[2019-09-20] MEDS: levETIRAcetam 250 MG TAB PO SCH (20:21)
[2019-09-20] MEDS ORDERED: CETIRIZINE HCL 10 MG TABLET PO SCH (21:00)
[2019-09-20] MEDS ORDERED: ATORVASTATIN 40 MG TAB PO SCH (21:00)
[2019-09-21] MEDS ORDERED: LEVOTHYROXINE SODIUM 25 MCG TABLET PO SCH (06:30)
[2019-09-21] MEDS: levETIRAcetam 250 MG TAB PO SCH (08:03)
[2019-09-21] MEDS: ASCORBIC ACID 500 MG TAB PO SCH (08:03)
[2019-09-21] MEDS: glipiZIDE 5 MG TAB PO SCH (08:04)
[2019-09-21] MEDS: FAMOTIDINE 20 MG TAB PO SCH (08:04)
--- NOTE | 2019-09-21 08:25 | Electrocardiogram Report ---
Test Reason : Blood Pressure : / mmHG Vent. Rate : 068 BPM Atrial Rate : 068 BPM P-R Int : 164 ms QRS Dur : 098 ms QT Int : 408 ms P-R-T Axes : 067 -08 048 degrees QTc Int : 433 ms Normal sinus rhythm Low voltage QRS Poor R wave progression, consider anterior HI vs. lead placement vs. LVH Abnormal ECG When compared with ECG of 30-AUG-2019 07:10, No significant change was found Confirmed by Alberto Soria ([id number]) on 09/21/2019 8:25:24 AM Referred By: Gayle Mtz Confirmed By:Alberto Soria
[2019-09-21] MEDS ORDERED: METFORMIN HCL 500 MG TAB PO SCH (09:00)
[2019-09-21] MEDS ORDERED: FUROSEMIDE 40 MG TAB PO SCH (09:00)
[2019-09-21] MEDS ORDERED: METOPROLOL SUCC 50MG EXT REL TAB PO SCH (09:00)
[2019-09-21] MEDS ORDERED: LOSARTAN POTASSIUM 50 MG TAB PO SCH (09:00)
[2019-09-21] MEDS ORDERED: ASPIRIN 325 MG ECTAB PO SCH (09:00)
[2019-09-21] MEDS ORDERED: FOLIC ACID 1 MG TAB PO SCH (09:00)
[2019-09-21] MEDS ORDERED: ESCITALOPRAM OXALATE 10 MG TAB PO SCH (09:00)
[2019-09-21] MEDS ORDERED: FINASTERIDE 5 MG TAB PO SCH (11:30)
--- NOTE | 2019-10-02 07:52 | Operative Report (OR) ---
DATE OF OPERATION: 09/20/2019 PREOPERATIVE DIAGNOSIS: Supraventricular tachycardia. POSTOPERATIVE DIAGNOSIS: Supraventricular tachycardia. PROCEDURE: Electrophysiology study, 3D mapping of the His bundle region, slow pathway modification radiofrequency ablation. SURGEON: Gayle Mtz DO. ASSISTANTS: None. ANESTHESIA: Monitored conscious sedation administered under my supervision by Suki Jara. Start time 1307, end time 1521. A total of 6 mg of Versed and 150 mcg of fentanyl. INTRAVENOUS FLUIDS: 69 mL. URINE OUTPUT: Not applicable. SPECIMENS: None. FINDINGS: See below. DRAINS: None. INDICATIONS: This is a 73-year-old gentleman with past medical history for recurrent SVT requiring adenosine multiple hospitalizations for ischemic cardiomyopathy, carotid stents, CVA with residual blindness, hypertension, hyperlipidemia, diabetes, gastroesophageal reflux disease and BPH. Due to recurrent SVT, he was recommended an electrophysiology study with possible ablation. CONSENT: Consent was obtained prior to the patient going into electrophysiology lab. The patient was informed of the risks, benefits and alternative procedure. Risks include but not limited to sudden cardiac , cardiac arrhythmias, cerebrovascular accident, myocardial infarction, injury to the blood vessels, chamber of the heart or the [place] electrical system where he would need a permanent pacemaker. The patient understood these risks and agreed to proceed as planned. Informed consent was obtained. DESCRIPTION OF THE PROCEDURE: The patient was brought into electrophysiology lab in fasting state. He was connected to continuous cardiac cath rn. Timeout was performed to ensure patient identity and procedure correctly. The patient was prepped and draped over the bilateral groins in normal surgical standard fashion. Monitored conscious sedation was given throughout the procedure for patient's comfort level. [place] precautions obtained throughout the procedure. 10 mL of 1% lidocaine, bupivacaine mixture was given in the bilateral groins. Then using modified Seldinger technique, venous access was obtained in the following manner. The left femoral vein had a 7-Qatari sheath followed by a Decapolar coronary sinus DF curved catheter on the coronary sinus. A 7-Qatari sheath followed by a Hisser catheter positioned over the His bundle. A 6-Qatari sheath followed by a quadripolar Aleksandr catheter positioned in the right ventricular apex. The right femoral vein had a 6-Qatari sheath followed by a Aleksandr quadripolar catheter positioned in the high right atrium and a 6-Qatari sheath that was ultimately swapped out for an SRO and a [employer] Imagekind curve 4 mm non-irrigated ablation catheter. With all the catheters in position, the electrophysiology study was performed with following findings: Sinus cycle length was 915 milliseconds, WI interval 160 milliseconds, QRS 74 milliseconds, QT 460 milliseconds, AH 80 milliseconds, HV 61 milliseconds. AV Wenckebach 370 milliseconds. Fast pathway ERP 600/410 and 500/370. AV node ERP was 600/310 and 500/340. Atrial ERP was 600/210 and 500/200. The right ventricular ERP was 600/260 and 500/120. Gave up to triples from the high right atrium without any inducible SVT, so 2 of Isuprel was started. Once we had an adequate isuprel response, the AV Wenckebach was 330 milliseconds. The atrial and AV fransico ERP were less than or equal to 400/220. I gave up to triples and had a few echoes, but no inducible SVT. However, with the evidence of the recurrent SVT that he had documented with hospitalizations responding to adenosine and the evidence of dual atrioventricular fransico pathology along with echo beats, I opted to do an empiric slow pathway modification. At this point that I swapped out the 6-Qatari sheath in the right femoral vein for an SRO sheath and placed the ablation catheter up, we did 3D mapping of the His bundle region and coronary sinus os. Then I placed the ablation catheter on the low right atrial septum and had some successful junctional ablations at 25 norman. Once I felt like I gave enough I then turned my waiting post-ablation waiting period performed another electrophysiology study with the following findings: POST-ABLATION FINDINGS: Sinus cycle length 815 milliseconds, WI 150 milliseconds, QRS 78 milliseconds, QT 369 milliseconds, 875 milliseconds, HV 67 milliseconds, AV Wenckebach 400 milliseconds, fast pathway ERP 600/400 and 500/413, the AV node ERP 600/310 and 500/350, atrial ERP was 600/210 and 500/210. Right ventricular ERP was 600/260 and 500/250. I gave up the triples from the high right atrium and there was no echos and inducible arrhythmia. So, all the catheters were removed from the body and then the sheaths were pulled and manual compression was used to establish hemostasis. IMPRESSION: 1. Empiric slow pathway modification radiofrequency ablation. 2. Evidence of dual atrioventricular fransico pathology, although no inducible supraventricular tachycardia. He had documented recurrent supraventricular tachycardia on 12-lead requiring adenosine in the past. PLAN: Monitor patient overnight, 12-lead ECG, no heavy lifting or squatting for 1 week's time and I will see him back in my office in 1 month. I attest to the content of the Intraoperative Record and any orders documented therein. Any exceptions are noted below. KAILASH
--- NOTE | 2019-10-11 15:46 | Discharge Summary ---
Date of Service September 21, 2019 Admission HPI Per Admitting Provider pt admitted for elective EPS due to recurrent SVT Admission Exam Per Admitting Provider aaox3, NAD NC/AT, EOMI Supple No JVD Nrl S1/S2, No murmur CTA b/l no w/r/r soft nt/nd no LE edema b/l skin intact vision blindness Principal Diagnosis AVNRT s/p slow pathway modification Discharge Exam aaox3, NAD NC/AT, EOMI Supple No JVD Nrl S1/S2, No murmur CTA b/l no w/r/r soft nt/nd no LE edema b/l skin intact no focal deficits b/l groins soft no hematoma Discharge Data Allergies Allergy/AdvReac Type Severity Reaction Status Date / Time tramadol [From Ultram] Allergy Severe Seizure Verified 08/29/19 16:14 haloperidol [From Haldol] Allergy Unknown Unknown Verified 08/29/19 16:14 Procedures Performed Operation Date: 09/20/19 12:00 Actual Procedures p EPS + Ablation for SVT Flutter - DO abraham Rodgers 3D Mapping (Carto) - DO abraham Rodgers Drug Stimulation - Gayle Mtz DO Ordered Studies 09/20/19 06:45 EP Lab Images for PACS ONCE Hospital Course (1) AVNRT (AV fransico re-entry tachycardia): Total Time Total Time Spent Total Time Spent (In Minutes): 40 Total Time Includes: Examination of the Patient, Discharge Planning, Medication Reconciliation and Other Discharge Plan Discharge Items Patient Disposition: Home - Self-Care Reason For Visit: SVT ABLATION Discharge Diagnosis: AVNRT s/p ablation Condition on Discharge: Good Activity: As commented below Lifting: No more than 10 pounds Bathing: No limitations Non-emergency contact: [employer] Call non-emergency contact if: you have any medication questions Follow-up/Referrals: Raysa Hobbs M.D. [Primary Care Provider] - Diet: Heart Healthy Addtl Attending Provider Instructions: F/u with Dr. Mtz at [facility] on Wednesday10/27/2019 at 10:15am Pending Studies at Discharge: No Stand-Alone Forms: My [facility] Medications and DC Order Prescriptions: Continued losartan 50 mg Tablet 50 mg PO QAM RF: 0 cetirizine 10 mg Tablet 10 mg PO HS RF: 0 finasteride 5 mg Tablet 5 mg PO QDL RF: 0 escitalopram oxalate [Lexapro] 10 mg Tablet 10 mg PO QAM RF: 0 levetiracetam 750 mg tablet 750 mg PO Q12H RF: 0 metoprolol succinate 25 mg tablet extended release 24 hr 50 mg PO DAILY RF: 0 furosemide 40 mg tablet 40 mg PO QAM RF: 0 atorvastatin 40 mg tablet 40 mg PO HS RF: 0 glipizide 10 mg Tablet 10 mg PO BIDM RF: 0 levothyroxine 25 mcg tablet 25 mcg PO DAILYBB RF: 0 metformin 1,000 mg tablet 1,000 mg PO QAM RF: 0 folic acid 1 mg Tablet 1 mg PO QAM RF: 0 aspirin 325 mg Tablet 325 mg PO QAM RF: 0 ascorbic acid (vitamin C) 500 mg Tablet 1,000 mg PO BID RF: 0 acetaminophen 325 mg Tablet 650 mg PO Q4H MDD 10 TABLETS/DAILY PRN (Reason: Fever Or Pain) RF: 0 famotidine 20 mg Tablet 20 mg PO BIDM RF: 0 Discharge Orders: Discharge Order (Routine); Ordered 09/21/19 Ordered By: Gayle Mtz Admission Data Admit Date/Time: 09/20/19 15:33 Attending Provider: Gayle Mtz Admit Provider: Gayle Mtz Primary Care Provider: Raysa Hobbs Other Interventions: Discharge Summary Assessment (RN) Last Done: 09/21/19 09:21 DC Date/Time DO NOT enter until pt leaves facility: 09/21/19 09:57
== END 2019-09-21 09:57 | disposition home or self-care (01) ==
LOC: 1E 11:06 → EP 11:06

== ENCOUNTER 2019-10-12 12:05 | Inpatient (IN) ==
[2019-10-12] MEDS ORDERED: ONDANSETRON INJ 2 MG/ML 2 ML VIAL IV STA ×2 (12:15→14:43)
[2019-10-12] MEDS ORDERED: SODIUM CHLORIDE 0.9% 500 ML IV SCH (12:15)
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
[2019-10-12] MEDS: fentaNYL citrate 100 MCG/2 ML VIAL IV PRN ×2 (12:39→13:12)
[2019-10-12 12:42] LABS: Basophils # (auto) 0.02 K/uL (0-0.2); Basophils % (auto) 0.2 %; Eosinophils # (auto) 0.18 K/uL (0-0.5); Eosinophils % (auto) 1.9 %; Hematocrit (blood only) 32.8 % (42-52); Hemoglobin 10.8 g/dL (14.0-18.0); Immature Granulocytes # (auto) 0.07 K/uL (0.00-0.02); Immature Granulocytes % (auto) 0.7 %; Lymphocytes # (auto) 1.97 K/uL (1.2-3.4); Lymphocytes % (auto) 20.4 %; Mean Corpuscular Hemoglobin 28.9 pg (25-34); Mean Corpuscular Hgb Conc 32.9 g/dL (32-36); Mean Corpuscular Volume 87.7 fL (80-100); Mean Platelet Volume 9.5 fL (7.4-10.4); Monocytes # (auto) 0.46 K/uL (0.11-0.59); Monocytes % (auto) 4.8 %; Neutrophils # (auto) 6.97 K/uL (1.4-6.5); Platelet Count 279 K/uL (130-400); RDW Coefficient of Variation 14.4 % (11.5-14.5); RDW Standard Deviation 45.9 fL (36.4-46.3); Red Blood Count 3.74 M/uL (4.7-6.1); White Blood Count 9.67 K/uL (4.8-10.8)
[2019-10-12 12:57] LABS: Albumin Level 3.3 gm/dl (3.4-5.0); BUN Creatinine Ratio 21.9 (10-20); Calcium 9.1 mg/dl (8.5-10.1); Creatinine Clr Calc Pharmacy 71.1 ml/min; Est GFR (African American) 61.3; Est GFR (Non-African American) 52.9; Potassium 4.2 mmol/L (3.5-5.1)
[2019-10-12 13:00] LABS: Albumin Globulin Ratio 0.8 (0.9-2); Bilirubin,Total 0.4 mg/dl (0.2-1); Globulin 4.3 gm/dl (2.5-4.0); Total Protein 7.6 gm/dl (6.4-8.2)
[2019-10-12 13:01] LABS: Partial Thromboplastin Ratio 0.9; Partial Thromboplastin Time 24.2 Seconds (21.0-31.0); Prothrombin Time 10.9 Seconds (9.0-12.0)
--- NOTE | 2019-10-12 13:16 | CT Scan Report ---
CT OF THE HEAD WITHOUT CONTRAST CLINICAL HISTORY: fall COMPARISON STUDY: Head CT August 12, 2019. TECHNIQUE: Helical axial images of the head were obtained without IV contrast. Automated exposure con trol was utilized for the study. A dose lowering technique was utilized adhering to the principles o f ALARA. FINDINGS: No acute intracranial hemorrhage, midline shift or mass effect is present. The ventricular system is stable. Old left frontal and parietal lobe infarcts are unchanged. The basilar cisterns are patent. No extra-axial collections are present. There are no findings to suggest acute dural sinus t hrombosis or acute territorial infarct. No significant calvarial abnormalities are present. Visualize d portions of the sinuses and mastoid air cells are clear. Small radiodensities within the left scalp are unchanged. IMPRESSION: 1. No acute intracranial findings. No change in appearance of the brain. 2. No calvarial fracture. ACT 112: Negative or not required by law. Electronically signed by: John Bragg M.D. 10/12/2019 1:15 PM
--- NOTE | 2019-10-12 13:19 | CT Scan Report ---
CT cervical spine wo con CLINICAL HISTORY: 73 years-old Male with fall. Acute neck pain status post fall COMPARISON: CT cervical spine 08/12/2019 TECHNIQUE: Multiple axial CT images of the cervical spine were obtained without contrast. A dose low ering technique was utilized adhering to the principles of ALARA. FINDINGS: Extensive bethany and screw fusion hardware of the thoracic spine noted on the vegetable packer localizer images. Tr andrews left mastoid effusion. There is no prevertebral soft tissue swelling. Extensive calcified plaque of the bilateral carotid bulbs. Bilateral proximal internal carotid artery stent. Calcification of th e bilateral palatine tonsils. There is thickening with asymmetric medial deviation of the left vocal fold. The study is mildly motion degraded. No pneumothorax. Evaluation of the central canal and neuro foramina is better assessed by MRI. Multilevel foraminal narrowing is noted which is secondary to mul tilevel uncovertebral spurring with posterior annular disc bulging/disc osteophyte complex formations with moderate facet arthrosis. Additionally, there is at least mild multilevel central canal stenosi s. Nuchal ligament calcifications. No acute fracture or subluxation. IMPRESSION: No acute fracture or subluxation. ACT 112: Negative or not required by law. The above report was generated using voice recognition software. It may contain grammatical, syntax o r spelling errors. Electronically signed by: Bhargav Gold M.D. 10/12/2019 1:17 PM
--- NOTE | 2019-10-12 13:25 | CT Scan Report ---
CT lumbar spine wo con HISTORY: 73 years-old Male fall acute low back pain status post fall COMPARISON: CT abdomen and pelvis 08/29/2019 TECHNIQUE: Multiple axial CT images of the lumbar spine were obtained without the use of IV contrast. A dose lowering technique was used consistent with the principals of CAMRYN. FINDINGS: Extensive calcified plaque of the abdominal aorta without aneurysm. There is no adenopathy. Probable cyst of the inferior pole right kidney, 1.9 cm. Mild nonspecific bilateral perinephric stranding. Streak artifact from posterior interbody bethany and screw fusion hardware which is noted at the T11, T12 and L1 levels. The imaged hardware appears intact. No evidence of hardware loosening. Demineralized appearance of the bones. There is an acute obliquely oriented fracture involving the anterior cortex and superior endplate of the L2 vertebral body with separation of the fracture fragments measuring up to 6 mm. There is mild superior endplate compression of less than 20%. No retropulsion. Mild reactiv e paravertebral edema. Fracture does not extend into the posterior elements. No additional acute frac ture or subluxation. Extensive anterior endplate bridging osteophytosis is noted with at least mild m ultilevel disc space narrowing. Mild to moderate disc space narrowing with chondrocalcinosis and part ial bony fusion at L4-L5. Severe multilevel facet arthrosis. Remote right-sided L5 pars defect withou t spondylolisthesis. Image sacrum and iliac bones appear intact. Mild dextroscoliosis. Evaluation of the central canal and neuroforamina is better assessed by MRI. IMPRESSION: 1. Acute transversely oriented fracture involves the L2 vertebral body anterior cortex and superior e ndplate with less than 20% vertebral body height loss. No retropulsion. Mild associated reactive para vertebral edema. 2. No additional acute fracture or subluxation. ACT 112: Negative or not required by law. The above report was generated using voice recognition software. It may contain grammatical, syntax o r spelling errors. Electronically signed by: Bhargav Gold M.D. 10/12/2019 1:24 PM
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
[2019-10-12] MEDS ORDERED: HYDROmorphone INJ 1 MG/ML SYRINGE IV STA (13:57)
[2019-10-12] MEDS ORDERED: ONDANSETRON INJ 2 MG/ML 2 ML VIAL IV PRN (14:09)
[2019-10-12] MEDS ORDERED: NITROGLYCERIN SL 0.4 MG/TAB TAB SL PRN (14:09)
[2019-10-12] MEDS ORDERED: ACETAMINOPHEN 325 MG TAB PO PRN ×2 (14:09→15:42)
[2019-10-12] MEDS ORDERED: GLUCOSE 40% GEL 15 GM TUBE PO PRN (15:42)
[2019-10-12] MEDS ORDERED: CARBOHYDRATES FOR HYPOGLYCEMIA PO PRN (15:42)
[2019-10-12] MEDS ORDERED: GLUCOSE 10 TABS/TUBE PO PRN (15:42)
[2019-10-12] MEDS ORDERED: GLUCAGON FOR INJ 1 MG VIAL SQ PRN (15:42)
[2019-10-12] MEDS ORDERED: DEXTROSE 50% 50 ML SYRINGE IV PRN (15:42)
[2019-10-12] MEDS: HYDROmorphone INJ 0.5 MG/0.5 ML SYR IV PRN ×2 (16:31→21:50)
[2019-10-12] MEDS: INSULIN ASPART 100 UNITS/ML 3 ML PEN SC SCH ×2 (17:35→20:18)
[2019-10-12] MEDS: FAMOTIDINE 20 MG TAB PO SCH (18:21)
[2019-10-12] MEDS: OXYCODONE/ACETAMINOPHEN 5mg/325mg TAB PO PRN (19:05)
[2019-10-12] MEDS: INSULIN GLARGINE SOLOSTAR 100 UNITS/ML 3 ML PEN SC SCH (20:18)
[2019-10-12] MEDS: CETIRIZINE HCL 10 MG TABLET PO SCH (20:19)
[2019-10-12] MEDS: ASCORBIC ACID 500 MG TAB PO SCH (20:19)
[2019-10-12] MEDS: ATORVASTATIN 40 MG TAB PO SCH (20:19)
[2019-10-12] MEDS: levETIRAcetam 250 MG TAB PO SCH (20:19)
[2019-10-13] MEDS: HYDROmorphone INJ 0.5 MG/0.5 ML SYR IV PRN ×5 (02:00→19:59)
[2019-10-13] MEDS: LEVOTHYROXINE SODIUM 25 MCG TABLET PO SCH (06:07)
[2019-10-13 06:23] LABS: Hematocrit (blood only) 31.7 % (42-52); Hemoglobin 10.3 g/dL (14.0-18.0); Mean Corpuscular Hemoglobin 28.9 pg (25-34); Mean Corpuscular Hgb Conc 32.5 g/dL (32-36); Mean Corpuscular Volume 88.8 fL (80-100); Mean Platelet Volume 9.9 fL (7.4-10.4); Platelet Count 298 K/uL (130-400); RDW Coefficient of Variation 14.4 % (11.5-14.5); RDW Standard Deviation 46.8 fL (36.4-46.3); Red Blood Count 3.57 M/uL (4.7-6.1); White Blood Count 9.83 K/uL (4.8-10.8)
[2019-10-13 07:10] LABS: Calcium 8.5 mg/dl (8.5-10.1); Creatinine Clr Calc Pharmacy 71.4 ml/min; Est GFR (African American) 62.5; Est GFR (Non-African American) 53.9; Potassium 4.6 mmol/L (3.5-5.1)
[2019-10-13] MEDS: METOPROLOL SUCC 50MG EXT REL TAB PO SCH (07:44)
[2019-10-13] MEDS: LOSARTAN POTASSIUM 50 MG TAB PO SCH (07:44)
[2019-10-13] MEDS: FAMOTIDINE 20 MG TAB PO SCH ×2 (07:44→16:24)
[2019-10-13] MEDS: FUROSEMIDE 40 MG TAB PO SCH (07:44)
[2019-10-13] MEDS: levETIRAcetam 250 MG TAB PO SCH ×2 (07:44→20:33)
[2019-10-13] MEDS: ESCITALOPRAM OXALATE 10 MG TAB PO SCH (07:45)
[2019-10-13] MEDS: FOLIC ACID 1 MG TAB PO SCH (07:45)
[2019-10-13] MEDS: ASCORBIC ACID 500 MG TAB PO SCH ×2 (07:45→20:32)
[2019-10-13] MEDS: INSULIN ASPART 100 UNITS/ML 3 ML PEN SC SCH ×4 (08:36→20:32)
[2019-10-13] MEDS: INSULIN GLARGINE SOLOSTAR 100 UNITS/ML 3 ML PEN SC SCH ×2 (08:37→20:32)
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
[2019-10-13] MEDS: FINASTERIDE 5 MG TAB PO SCH (12:36)
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
[2019-10-13] MEDS: OXYCODONE/ACETAMINOPHEN 5mg/325mg TAB PO PRN (18:25)
[2019-10-13] MEDS: CETIRIZINE HCL 10 MG TABLET PO SCH (20:33)
[2019-10-13] MEDS: ATORVASTATIN 40 MG TAB PO SCH (20:33)
[2019-10-14] MEDS: LEVOTHYROXINE SODIUM 25 MCG TABLET PO SCH (05:41)
[2019-10-14] MEDS: INSULIN ASPART 100 UNITS/ML 3 ML PEN SC SCH ×4 (08:45→20:21)
[2019-10-14] MEDS: LOSARTAN POTASSIUM 50 MG TAB PO SCH (08:47)
[2019-10-14] MEDS: FAMOTIDINE 20 MG TAB PO SCH ×2 (08:47→16:22)
[2019-10-14] MEDS: OXYCODONE/ACETAMINOPHEN 5mg/325mg TAB PO PRN ×2 (08:47→17:04)
[2019-10-14] MEDS: levETIRAcetam 250 MG TAB PO SCH ×2 (08:48→20:15)
[2019-10-14] MEDS: FOLIC ACID 1 MG TAB PO SCH (08:48)
[2019-10-14] MEDS: INSULIN GLARGINE SOLOSTAR 100 UNITS/ML 3 ML PEN SC SCH ×2 (08:48→20:20)
[2019-10-14] MEDS: FUROSEMIDE 40 MG TAB PO SCH (08:49)
[2019-10-14] MEDS: ESCITALOPRAM OXALATE 10 MG TAB PO SCH (08:49)
[2019-10-14] MEDS: METOPROLOL SUCC 50MG EXT REL TAB PO SCH (08:49)
[2019-10-14] MEDS: ASCORBIC ACID 500 MG TAB PO SCH ×2 (08:50→20:16)
[2019-10-14] MEDS: HYDROmorphone INJ 0.5 MG/0.5 ML SYR IV PRN ×2 (09:52→20:26)
--- NOTE | 2019-10-14 10:38 | XRay Report ---
XR lumbar spine 2-3V HISTORY: 73 years-old Male unable to tolerate standing per MD frausto for supine acute low back pain st atus post fall COMPARISON: CT lumbar spine 10/12/2019 TECHNIQUE: 3 views of the lumbar spine FINDINGS: Demineralized appearance of the bones. Acute transverse fracture involving the anterior endplate L2 b stevan seen on comparison CT study from 10/12/2019. Multilevel advanced bridging anterior endplate oste ophytosis is noted. Partial bony fusion of the L4-L5 vertebral bodies and facets with severe lower mariam mbar facet arthrosis. No additional acute fracture or subluxation. Intact posterior interbody bethany and screw fusion of the lower thoracic spine and L1. Calcified plaque of the abdominal aorta. Soft tissu es are unremarkable. IMPRESSION: 1. Acute fracture of the L2 vertebral body is better characterized on CT study from 10/12/2019. There is no retropulsion or acute subluxation identified. 2. Degenerative changes as above. 3. The visualized thoracolumbar fusion hardware appears intact. ACT 112: Negative or not required by law. The above report was generated using voice recognition software. It may contain grammatical, syntax o r spelling errors. Electronically signed by: Bhargav Gold M.D. 10/14/2019 10:36 AM
[2019-10-14] MEDS ORDERED: HYDROmorphone INJ 0.5 MG/0.5 ML SYR IV ONE (12:00)
[2019-10-14] MEDS: DEXAMETHASONE SOD PHOSPHATE 10 MG in SYRINGE 0 ML IV SCH (13:33)
[2019-10-14] MEDS: FINASTERIDE 5 MG TAB PO SCH (13:33)
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
[2019-10-14] MEDS: ASPIRIN 325 MG ECTAB PO SCH (19:01)
[2019-10-14] MEDS: CETIRIZINE HCL 10 MG TABLET PO SCH (20:16)
[2019-10-14] MEDS: ATORVASTATIN 40 MG TAB PO SCH (20:16)
[2019-10-15] MEDS: OXYCODONE/ACETAMINOPHEN 5mg/325mg TAB PO PRN ×4 (02:52→23:38)
[2019-10-15] MEDS: LEVOTHYROXINE SODIUM 25 MCG TABLET PO SCH (05:57)
[2019-10-15] MEDS: DEXAMETHASONE SOD PHOSPHATE 10 MG in SYRINGE 0 ML IV SCH (08:55)
[2019-10-15] MEDS: FAMOTIDINE 20 MG TAB PO SCH ×2 (08:56→16:50)
[2019-10-15] MEDS: ASPIRIN 325 MG ECTAB PO SCH (08:56)
[2019-10-15] MEDS: levETIRAcetam 250 MG TAB PO SCH ×2 (08:57→20:10)
[2019-10-15] MEDS: FUROSEMIDE 40 MG TAB PO SCH (08:57)
[2019-10-15] MEDS: ESCITALOPRAM OXALATE 10 MG TAB PO SCH (08:57)
[2019-10-15] MEDS: FOLIC ACID 1 MG TAB PO SCH (08:57)
[2019-10-15] MEDS: ASCORBIC ACID 500 MG TAB PO SCH ×2 (08:58→20:12)
[2019-10-15] MEDS: LOSARTAN POTASSIUM 50 MG TAB PO SCH (08:58)
[2019-10-15] MEDS: METOPROLOL SUCC 50MG EXT REL TAB PO SCH (08:58)
[2019-10-15] MEDS: INSULIN ASPART 100 UNITS/ML 3 ML PEN SC SCH ×5 (09:14→23:39)
[2019-10-15] MEDS: INSULIN GLARGINE SOLOSTAR 100 UNITS/ML 3 ML PEN SC SCH (09:16)
--- NOTE | 2019-10-15 11:13 | Orthopedic Progress Note ---
Date of Service October 15, 2019 Assessment & Plan (1) Closed L2 vertebral fracture: Long discussion with this patient and his this morning. I have emphasized that this could be a highly unstable fracture ultimately requiring surgical stabilization. Clearly they would like to avoid this in light of his health history and surgery just a year ago in the upper thoracic region. We will continue with close observation. I will most likely order an MRI of the lumbar spine Wednesday or Wednesday for further evaluation of the fracture pattern. Patient and the understand and agree. We will maintain bedrest at this time. Present on Admission?: Yes Admission and Anticipated Discharge Date Admission Date: October 12, 2019 Subjective Patient states he is quite comfortable since yesterday. That this is when lying supine. He has not but sat up or try to move yet today. He denies any numbness or tingling or pain into the lower extremities. Physical Exam Physical Exam: Patient does appear comfortable. He is asked strength testing. Results & Data ([facility]) Vital Signs (Past 12 Hours) Vital Signs Temp Pulse Pulse Resp BP Pulse Ox 10/15/19 07:23 36.5 C 79 18 132/66 95 10/15/19 02:44 36.7 C 77 18 168/77 H 96 10/14/19 23:31 36.3 C L 80 19 157/74 H 96 10/14/19 23:21 81 (1) Closed L2 vertebral fracture Encounter type: initial encounter Fracture morphology: unspecified fracture morphology Qualified Code(s): S32.029A - Unspecified fracture of second lumbar vertebra, initial encounter for closed fracture
[2019-10-15] MEDS: FINASTERIDE 5 MG TAB PO SCH (12:13)
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
[2019-10-15] MEDS ORDERED: PHARMACY GLYCEMIC MGMT CONSULT PRN (16:58)
[2019-10-15] MEDS ORDERED: INSULIN GLARGINE SOLOSTAR 100 UNITS/ML 3 ML PEN SC ONE (17:30)
[2019-10-15] MEDS: ATORVASTATIN 40 MG TAB PO SCH (20:11)
[2019-10-15] MEDS: CETIRIZINE HCL 10 MG TABLET PO SCH (20:12)
[2019-10-15] MEDS ORDERED: INSULIN HUMAN REGULAR PER UNIT 10 UNITS in SYRINGE 9.9 ML IV ONE (20:30)
[2019-10-15] MEDS: HYDROmorphone INJ 0.5 MG/0.5 ML SYR IV PRN (22:34)
[2019-10-16] MEDS: INSULIN ASPART 100 UNITS/ML 3 ML PEN SC SCH ×5 (04:45→22:04)
[2019-10-16] MEDS: LEVOTHYROXINE SODIUM 25 MCG TABLET PO SCH (06:20)
[2019-10-16] MEDS: OXYCODONE/ACETAMINOPHEN 5mg/325mg TAB PO PRN ×2 (06:22→18:09)
[2019-10-16] MEDS: ASPIRIN 325 MG ECTAB PO SCH (08:16)
[2019-10-16] MEDS: LOSARTAN POTASSIUM 50 MG TAB PO SCH (08:16)
[2019-10-16] MEDS: levETIRAcetam 250 MG TAB PO SCH ×2 (08:16→20:05)
[2019-10-16] MEDS: FAMOTIDINE 20 MG TAB PO SCH ×2 (08:16→16:06)
[2019-10-16] MEDS: FOLIC ACID 1 MG TAB PO SCH (08:16)
[2019-10-16] MEDS: METOPROLOL SUCC 50MG EXT REL TAB PO SCH (08:17)
[2019-10-16] MEDS: ASCORBIC ACID 500 MG TAB PO SCH ×2 (08:17→20:06)
[2019-10-16] MEDS: FUROSEMIDE 40 MG TAB PO SCH (08:17)
[2019-10-16] MEDS: ESCITALOPRAM OXALATE 10 MG TAB PO SCH (08:17)
--- NOTE | 2019-10-16 08:51 | Pharmacy Report ---
Pharmacy Glycemic Short Note 2 - Date of Service October 16, 2019 - Glycemic Short BSG Results (Last 24 hours): 10/15/19 10/15/19 10/15/19 11:50 11:51 16:42 POC Glucose 316 H* 335 H* 328 H* 10/15/19 10/15/19 10/15/19 16:43 20:07 20:08 POC Glucose 307 H* 323 H* 328 H* 10/15/19 10/15/19 10/16/19 21:58 23:31 04:25 POC Glucose 259 H 220 H 180 H 10/16/19 07:26 POC Glucose 188 H OUTPATIENT ANTIDIABETIC REGIMEN: * Glipizide 10 mg PO BIDM * Metformin 1000 mg PO BIDM * HbA1c: 7.8% ASSESSMENT: * LAVONNE is a 73 year old male admitted on 10/12/19 for L2 vertebral compression fracture - ortho not recommending surgery at this time * Dexamethasone 10 mg IV daily initiated on 10/14/19 - BSGs steadily rising since that time * Pharmacy consulted for glycemic management last evening * BSGs yesterday ranging 220-335 mg/dL * Patient received 30 units of basal, 45 units of correctional/prandial, and a 10 unit IV insulin bolus (95 units total) * Fasting BSG this morning of 188 mg/dL - will give 35 unit dose of NPH with IV dexamethasone this morning and continue tightened Novolog PLAN FOR INPATIENT GLYCEMIC CONTROL: * Hold outpatient oral diabetes medications * Basal insulin * NPH 35 units (~0.4 unit/kg based on adjusted body weight) * Anticipate Lantus scale this evening (0-10 units - see EHR for details) * Bolus insulin - tighten * NovoLog per scale ACHS or Q6hrs while NPO * Goal Range: Low 110 mg/dL - High 140 mg/dL * Correction Factor: 15 mg/dL/unit * Nutritional / Prandial insulin per carb ratio of 1 unit per 4 grams CHO consumed PLAN FOR DISCHARGE: * Reasonable A1c goal for most patients is less than or equal to 7% * However, may consider goal of less than 8% based on age and comorbidities if patient susceptible to hypoglycemia (no evidence of this while inpatient) * Continue home regimen - could consider addition of a third oral agent such as linagliptin 5 mg PO daily (safe in renal impairment) if further A1c reduction is desired
[2019-10-16] MEDS ORDERED: NovoLIN-N (NPH) PER UNIT CHARGE SQ SCH (09:00)
[2019-10-16] MEDS: DEXAMETHASONE SOD PHOSPHATE 10 MG in SYRINGE 0 ML IV SCH (09:46)
[2019-10-16] MEDS: FINASTERIDE 5 MG TAB PO SCH (11:02)
[2019-10-16] MEDS ORDERED: ALBUT/IPRATROP 3MG/0.5MG NEB 3 ML VIAL NEB PRN (16:13)
[2019-10-16] MEDS ORDERED: HYDROmorphone INJ 1 MG/ML SYRINGE IV STA (16:15)
--- NOTE | 2019-10-16 16:57 | XRay Report ---
XR chest 1V portable CLINICAL HISTORY: cough COMPARISON STUDY: 08/29/2019 FINDINGS: The heart remains mildly enlarged. There are posterior spinal rods. There is no failure. Th ere is no lobar consolidation. There is chronic left basilar pleural-parenchymal atelectasis/scarring . IMPRESSION: No significant change from the preceding study. No acute findings. ACT 112: Negative or not required by law. Electronically signed by: Marco Navarrete M.D. 10/16/2019 4:56 PM
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
[2019-10-16] MEDS: BENZONATATE 100 MG CAPSULE PO PRN (18:09)
[2019-10-16] MEDS: DOXYCYCLINE HYCLATE 100 MG CAP PO SCH (18:09)
--- NOTE | 2019-10-16 18:10 | Magnetic Resonance Report ---
MR lumbar spine wo con CLINICAL HISTORY: back pain DIFFICULTY AMBULATING. TRAUMA. TECHNIQUE: Sagittal and axial T1, T2 and STIR images were obtained. COMPARISON STUDY: CT scan dated 10/12/2019 OBSERVATIONS: There are no areas of marrow replacement to indicate neoplasm. There is subtle superior endplate L2 v ertebral body edema, consistent with the patient's known superior endplate L2 fracture. L1-2: There is a minor circumferential disc bulge. There is no significant spinal or foraminal stenos is. There is a right-sided L1 pedicle screw L2-3: The disc is desiccated. There is a minimal circumferential disc bulge. There is no significant spinal or foraminal stenosis L3-4: There is a circumferential disc bulge. There is no significant spinal stenosis. There is very m ild bilateral foraminal narrowing L4-5: There is disc degeneration. There is no significant spinal stenosis. There is minimal bilateral foraminal narrowing L5-S1: The disc is degenerated. There is moderately advanced facet joint arthropathy. There are no fo tawana herniations. There is minor bilateral foraminal narrowing. There is no evidence of significant sp inal stenosis. There is a horizontal cleavage through the anterior superior L2 endplate consistent with the patient' s known fracture. There is bilateral paraspinal muscle atrophy The conus medullaris and cauda equina appear normal. IMPRESSION: 1. Redemonstration of the patient's transversely oriented fracture involving the anterior cortex and superior endplate of the L2 vertebral body. 2. No evidence of retropulsion. No evidence of epidural hematoma. 3. Multilevel degenerative change. ACT 112: Negative or not required by law. Electronically signed by: Marco Navarrete M.D. 10/16/2019 6:08 PM
[2019-10-16] MEDS: HYDROmorphone INJ 0.5 MG/0.5 ML SYR IV PRN (19:51)
[2019-10-16] MEDS: ATORVASTATIN 40 MG TAB PO SCH (20:05)
[2019-10-16] MEDS: CETIRIZINE HCL 10 MG TABLET PO SCH (20:06)
[2019-10-16] MEDS ORDERED: INSULIN GLARGINE SOLOSTAR 100 UNITS/ML 3 ML PEN SC ONE (21:00)
[2019-10-17] MEDS: OXYCODONE/ACETAMINOPHEN 5mg/325mg TAB PO PRN ×3 (01:44→19:36)
[2019-10-17] MEDS: LEVOTHYROXINE SODIUM 25 MCG TABLET PO SCH (06:08)
[2019-10-17] MEDS: HYDROmorphone INJ 0.5 MG/0.5 ML SYR IV PRN ×2 (08:50→15:34)
--- NOTE | 2019-10-17 08:51 | Pharmacy Report ---
Pharmacy Glycemic Short Note 2 - Date of Service October 17, 2019 - Glycemic Short BSG Results (Last 24 hours): 10/16/19 10/16/19 10/16/19 12:04 16:22 20:26 POC Glucose 238 H 283 H 290 H 10/16/19 10/17/19 22:04 07:43 POC Glucose 258 H 201 H OUTPATIENT ANTIDIABETIC REGIMEN: * Glipizide 10 mg PO BIDM * Metformin 1000 mg PO BIDM * HbA1c: 7.8% ASSESSMENT: 10/16 * 96 units of SQ insulin administered over the last 24 hrs while tolerating a diet. Would anticipate patient to require 120+ units/day to achieve target BSGs * BSGs have ranged 188-283 * Fasting BSG 201 this AM after receiving 35 units NPH + 10 units Lantus yesterday - Plan to increase basal doses today, primarily Lantus at HS * Post-prandial BSGs elevated yesterday despite NPH in AM with greater Novolog doses w/ meals - will continue to titrate upward the Novolog dose * Dexamethasone 10mg IV daily in the AM continues PLAN FOR INPATIENT GLYCEMIC CONTROL: * Hold outpatient oral diabetes medications * Basal insulin * NPH 40 units Q AM with Dexamethasone IV dose * Lantus 20 units Q HS * Bolus insulin - * NovoLog per scale ACHS and at 0200 tonight * Goal Range: Low 110 mg/dL - High 140 mg/dL * Correction Factor: 12 mg/dL/unit * Nutritional / Prandial insulin per carb ratio of 1 unit per 3.5 grams CHO consumed
[2019-10-17] MEDS: INSULIN ASPART 100 UNITS/ML 3 ML PEN SC SCH ×4 (08:56→20:46)
[2019-10-17] MEDS: DEXAMETHASONE SOD PHOSPHATE 10 MG in SYRINGE 0 ML IV SCH (08:57)
[2019-10-17] MEDS: FAMOTIDINE 20 MG TAB PO SCH ×2 (08:59→17:19)
[2019-10-17] MEDS: LOSARTAN POTASSIUM 50 MG TAB PO SCH (09:00)
[2019-10-17] MEDS ORDERED: NovoLIN-N (NPH) PER UNIT CHARGE SQ SCH (09:00)
[2019-10-17] MEDS: ASPIRIN 325 MG ECTAB PO SCH (09:00)
[2019-10-17] MEDS: FOLIC ACID 1 MG TAB PO SCH (09:02)
[2019-10-17] MEDS: ESCITALOPRAM OXALATE 10 MG TAB PO SCH (09:02)
[2019-10-17] MEDS: levETIRAcetam 250 MG TAB PO SCH ×2 (09:02→20:45)
[2019-10-17] MEDS: ASCORBIC ACID 500 MG TAB PO SCH ×2 (09:02→20:44)
[2019-10-17] MEDS: DOXYCYCLINE HYCLATE 100 MG CAP PO SCH ×2 (09:02→20:44)
[2019-10-17] MEDS: METOPROLOL SUCC 50MG EXT REL TAB PO SCH (09:02)
[2019-10-17] MEDS: FUROSEMIDE 40 MG TAB PO SCH (09:02)
[2019-10-17] MEDS: BENZONATATE 100 MG CAPSULE PO PRN ×2 (09:25→20:51)
[2019-10-17] MEDS: POLYETHYLENE (MIRALAX) 17 GM PACK PO PRN (09:25)
--- NOTE | 2019-10-17 10:53 | Orthopedic Progress Note ---
Date of Service October 17, 2019 Assessment & Plan (1) Closed L2 vertebral fracture: This time we will begin bed to chair transfers and initiate ambulation as tolerated. I am very pleased with the results of his MRI and suspect this will heal without surgical intervention. Present on Admission?: Yes Admission and Anticipated Discharge Date Admission Date: October 12, 2019 Subjective Patient's back pain is improved. He has no leg pain numbness or tingling. Physical Exam Physical Exam: On exam he does have his TLSO brace in place while sitting up beside the bed. He is able to stand with me and the assistance of the physical therapist. Reasonable strength testing lower extremities. Results & Data ([facility]) Vital Signs (Past 12 Hours) Vital Signs Temp Pulse Pulse Resp BP Pulse Ox 10/17/19 08:00 36.7 C 69 20 163/73 H 96 10/17/19 07:10 65 10/17/19 03:03 36.4 C L 66 18 138/70 96 10/17/19 01:33 70 10/16/19 23:48 36.5 C 73 18 135/67 96 (1) Closed L2 vertebral fracture Encounter type: initial encounter Fracture morphology: unspecified fracture morphology Qualified Code(s): S32.029A - Unspecified fracture of second lumbar vertebra, initial encounter for closed fracture
[2019-10-17] MEDS: FINASTERIDE 5 MG TAB PO SCH (11:56)
[2019-10-17] MEDS ORDERED: INSULIN GLARGINE SOLOSTAR 100 UNITS/ML 3 ML PEN SC SCH ×2 (17:30→21:00)
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
[2019-10-17] MEDS: ATORVASTATIN 40 MG TAB PO SCH (20:45)
[2019-10-17] MEDS: CETIRIZINE HCL 10 MG TABLET PO SCH (20:46)
[2019-10-18] MEDS ORDERED: INSULIN ASPART 100 UNITS/ML 3 ML PEN SC SCH (02:00)
[2019-10-18] MEDS: LEVOTHYROXINE SODIUM 25 MCG TABLET PO SCH (06:15)
[2019-10-18] MEDS ORDERED: NovoLIN-N (NPH) PER UNIT CHARGE SQ SCH (09:00)
[2019-10-18] MEDS: POLYETHYLENE (MIRALAX) 17 GM PACK PO PRN (09:04)
[2019-10-18] MEDS: FAMOTIDINE 20 MG TAB PO SCH ×2 (09:14→17:18)
[2019-10-18] MEDS: DEXAMETHASONE SOD PHOSPHATE 10 MG in SYRINGE 0 ML IV SCH (09:14)
[2019-10-18] MEDS: LOSARTAN POTASSIUM 50 MG TAB PO SCH (09:14)
[2019-10-18] MEDS: INSULIN ASPART 100 UNITS/ML 3 ML PEN SC SCH ×4 (09:15→21:43)
[2019-10-18] MEDS: FOLIC ACID 1 MG TAB PO SCH (09:16)
[2019-10-18] MEDS: DOXYCYCLINE HYCLATE 100 MG CAP PO SCH ×2 (09:16→20:00)
[2019-10-18] MEDS: FUROSEMIDE 40 MG TAB PO SCH (09:16)
[2019-10-18] MEDS: levETIRAcetam 250 MG TAB PO SCH ×2 (09:16→20:01)
[2019-10-18] MEDS: ASCORBIC ACID 500 MG TAB PO SCH ×2 (09:16→20:02)
[2019-10-18] MEDS: ASPIRIN 325 MG ECTAB PO SCH (09:16)
[2019-10-18] MEDS: METOPROLOL SUCC 50MG EXT REL TAB PO SCH (09:16)
[2019-10-18] MEDS: ESCITALOPRAM OXALATE 10 MG TAB PO SCH (09:16)
[2019-10-18] MEDS: BENZONATATE 100 MG CAPSULE PO PRN ×2 (09:18→17:17)
[2019-10-18] MEDS: OXYCODONE/ACETAMINOPHEN 5mg/325mg TAB PO PRN ×3 (09:19→21:45)
[2019-10-18] MEDS: HYDROmorphone INJ 0.5 MG/0.5 ML SYR IV PRN (10:26)
[2019-10-18] MEDS: FINASTERIDE 5 MG TAB PO SCH (12:15)
--- NOTE | 2019-10-18 14:08 | Pharmacy Report ---
Pharmacy Glycemic Short Note 2 - Date of Service October 18, 2019 - Glycemic Short BSG Results (Last 24 hours): 10/17/19 10/17/19 10/17/19 16:32 16:33 20:13 POC Glucose 317 H* 324 H* 281 H 10/18/19 10/18/19 10/18/19 02:05 07:25 11:29 POC Glucose 179 H 169 H 284 H OUTPATIENT ANTIDIABETIC REGIMEN: * Glipizide 10 mg PO BIDM * Metformin 1000 mg PO BIDM * HbA1c: 7.8% ASSESSMENT: 10/17 * 145 units of insulin administered over the last 24 hours. * BSGs ranged from 201-324, Fasting this morning improved to 169, will continue to titrate lantus * Continued 40 units of NPH with breakfast to help cover dexamethasone with tightened carb ratio started with dinner last PM, lunch BSG still elevated but improved from yesterday, morning insulin also given @915 therefore hesitant to decrease as full effect from morning dose probably not seen yet, will continue to monitor for need to tighten as patient is continuing dexamethasone 10 mg daily 10/16 * 96 units of SQ insulin administered over the last 24 hrs while tolerating a diet. Would anticipate patient to require 120+ units/day to achieve target BSGs * BSGs have ranged 188-283 * Fasting BSG 201 this AM after receiving 35 units NPH + 10 units Lantus yester day - Plan to increase basal doses today, primarily Lantus at HS * Post-prandial BSGs elevated yesterday despite NPH in AM with greater Novolog doses w/ meals - will continue to titrate upward the Novolog dose * Dexamethasone 10mg IV daily in the AM continues PLAN FOR INPATIENT GLYCEMIC CONTROL: * Hold outpatient oral diabetes medications * Basal insulin * NPH 40 units Q AM with Dexamethasone IV dose * Lantus 25 units Q HS * Bolus insulin - * NovoLog per scale ACHS and at 0200 tonight * Goal Range: Low 110 mg/dL - High 140 mg/dL * Correction Factor: 12 mg/dL/unit * Nutritional / Prandial insulin per carb ratio of 1 unit per 3 grams CHO consumed
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
[2019-10-18] MEDS ORDERED: LACTULOSE SYRUP 30 GM/45 ML UDP PO ONE (16:45)
[2019-10-18] MEDS: ATORVASTATIN 40 MG TAB PO SCH (20:01)
[2019-10-18] MEDS: CETIRIZINE HCL 10 MG TABLET PO SCH (20:03)
[2019-10-18] MEDS: INSULIN GLARGINE SOLOSTAR 100 UNITS/ML 3 ML PEN SC SCH (21:43)
[2019-10-19] MEDS ORDERED: INSULIN ASPART 100 UNITS/ML 3 ML PEN SC SCH
[2019-10-19] MEDS: LEVOTHYROXINE SODIUM 25 MCG TABLET PO SCH (04:48)
[2019-10-19] MEDS: OXYCODONE/ACETAMINOPHEN 5mg/325mg TAB PO PRN (04:48)
[2019-10-19] MEDS: BENZONATATE 100 MG CAPSULE PO PRN ×2 (08:40→17:51)
[2019-10-19] MEDS ORDERED: NovoLIN-N (NPH) PER UNIT CHARGE SQ SCH (09:00)
[2019-10-19] MEDS ORDERED: DEXAMETHASONE SOD PHOSPHATE 8 MG in SYRINGE 0 ML IV SCH (09:00)
--- NOTE | 2019-10-19 09:04 | XRay Report ---
XR lumbar spine 2-3V CLINICAL HISTORY: standing films with brace COMPARISON STUDY: 10/14/2019 FINDINGS: There is thoracolumbar spinal rodding. There are multilevel degenerative changes within the lumbar spine. There are prominent bridging anterior osteophytes. There are no subluxations. The rece ntly reported L2 fracture is difficult to visualize on conventional radiographic imaging. IMPRESSION: 1. The recently described superior endplate L2 fracture is not visualized on conventional radiographi c imaging 2. Degenerative change. No subluxations identified ACT 112: Negative or not required by law. Electronically signed by: Marco Navarrete M.D. 10/19/2019 9:02 AM
[2019-10-19] MEDS: LACTULOSE SYRUP 20 GM/30 ML UDC PO PRN (09:17)
[2019-10-19] MEDS: INSULIN ASPART 100 UNITS/ML 3 ML PEN SC SCH ×4 (09:20→21:10)
[2019-10-19] MEDS: FAMOTIDINE 20 MG TAB PO SCH ×2 (09:24→17:32)
[2019-10-19] MEDS: levETIRAcetam 250 MG TAB PO SCH ×2 (09:25→21:10)
[2019-10-19] MEDS: ASPIRIN 325 MG ECTAB PO SCH (09:25)
[2019-10-19] MEDS: FUROSEMIDE 40 MG TAB PO SCH (09:25)
[2019-10-19] MEDS: FOLIC ACID 1 MG TAB PO SCH (09:25)
[2019-10-19] MEDS: LOSARTAN POTASSIUM 50 MG TAB PO SCH (09:25)
[2019-10-19] MEDS: ASCORBIC ACID 500 MG TAB PO SCH ×2 (09:26→21:09)
[2019-10-19] MEDS: DOCUSATE SODIUM/SENNA 50/8.6MG TAB PO SCH (09:26)
[2019-10-19] MEDS: ESCITALOPRAM OXALATE 10 MG TAB PO SCH (09:26)
[2019-10-19] MEDS: METOPROLOL SUCC 50MG EXT REL TAB PO SCH (09:26)
[2019-10-19] MEDS: DOXYCYCLINE HYCLATE 100 MG CAP PO SCH ×2 (09:26→21:09)
[2019-10-19] MEDS: HYDROmorphone INJ 0.5 MG/0.5 ML SYR IV PRN (09:32)
[2019-10-19] MEDS: FINASTERIDE 5 MG TAB PO SCH (11:42)
--- NOTE | 2019-10-19 13:24 | Pharmacy Report ---
Pharmacy Glycemic Short Note 2 - Date of Service October 19, 2019 - Glycemic Short BSG Results (Last 24 hours): 10/18/19 10/18/19 10/18/19 16:37 20:30 20:32 POC Glucose 257 H 328 H* 315 H* 10/18/19 10/19/19 10/19/19 23:53 04:42 07:36 POC Glucose 218 H 130 H 130 H 10/19/19 11:51 POC Glucose 236 H OUTPATIENT ANTIDIABETIC REGIMEN: * Glipizide 10 mg PO BIDM * Metformin 1000 mg PO BIDM * HbA1c: 7.8% ASSESSMENT: 10/18 * 167 unit of insulin administered over the last 24 hours * BSGs ranged from 169-328; Fasting improved this morning to 130 * As fasting improved and dexamethasone decreased from 10 mg to 8 mg today will keep same basal for now * Carb ratio was tightened to 2.5 and correction factor to 10 last PM, will continue for now * Lunch BSG elevated at 236 but this is improved from previous and breakfast insulin administered ~0920. 10/17 * 145 units of insulin administered over the last 24 hours. * BSGs ranged from 201-324, Fasting this morning improved to 169, will continue to titrate lantus * Continued 40 units of NPH with breakfast to help cover dexamethasone with tightened carb ratio started with dinner last PM, lunch BSG still elevated but improved from yesterday, morning insulin also given @915 therefore hesitant to decrease as full effect from morning dose probably not seen yet, will continue to monitor for need to tighten as patient is continuing dexamethasone 10 mg daily 10/16 * 96 units of SQ insulin administered over the last 24 hrs while tolerating a diet. Would anticipate patient to require 120+ units/day to achieve target BSGs * BSGs have ranged 188-283 * Fasting BSG 201 this AM after receiving 35 units NPH + 10 units Lantus yesterday - Plan to increase basal doses today, primarily Lantus at HS * Post-prandial BSGs elevated yesterday despite NPH in AM with greater Novolog doses w/ meals - will continue to titrate upward the Novolog dose * Dexamethasone 10mg IV daily in the AM continues PLAN FOR INPATIENT GLYCEMIC CONTROL: * Hold outpatient oral diabetes medications * Basal insulin * NPH 40 units Q AM with Dexamethasone IV dose * Lantus 25 units Q HS * Bolus insulin - * NovoLog per scale ACHS and at 0200 tonight * Goal Range: Low 110 mg/dL - High 140 mg/dL * Correction Factor: 10 mg/dL/unit * Nutritional / Prandial insulin per carb ratio of 1 unit per 2.5 grams CHO consumed
[2019-10-19] MEDS: GUAIFENESIN/CODEINE 100MG/10MG 5ML UDC PO PRN (19:53)
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
[2019-10-19] MEDS: ATORVASTATIN 40 MG TAB PO SCH (21:09)
[2019-10-19] MEDS: CETIRIZINE HCL 10 MG TABLET PO SCH (21:09)
[2019-10-19] MEDS: INSULIN GLARGINE SOLOSTAR 100 UNITS/ML 3 ML PEN SC SCH (21:11)
[2019-10-20] MEDS: BENZONATATE 100 MG CAPSULE PO PRN ×2 (06:12→21:09)
[2019-10-20] MEDS: OXYCODONE/ACETAMINOPHEN 5mg/325mg TAB PO PRN ×2 (06:12→11:38)
[2019-10-20] MEDS: LEVOTHYROXINE SODIUM 25 MCG TABLET PO SCH (06:13)
--- NOTE | 2019-10-20 08:26 | Pharmacy Report ---
Pharmacy Glycemic Short Note 2 - Date of Service October 20, 2019 - Glycemic Short BSG Results (Last 24 hours): 10/19/19 10/19/19 10/19/19 11:51 17:01 20:42 POC Glucose 236 H 193 H 240 H 10/20/19 08:17 POC Glucose 105 H OUTPATIENT ANTIDIABETIC REGIMEN: * Glipizide 10 mg PO BIDM * Metformin 1000 mg PO BIDM * HbA1c: 7.8% ASSESSMENT: * BSGs continue to be elevated (ranging 130-240 mg/dL yesterday) * Most likely steroid-induced hyperglycemia secondary to IV dexamethasone * IV dexamethasone continues to be tapered - 6 mg IV x 1 scheduled for today * Fasting BSG of 105 mg/dL this morning - will adjust evening basal PLAN FOR INPATIENT GLYCEMIC CONTROL: * Hold outpatient oral diabetes medications * Basal insulin - Continue NPH, Lantus scale this evening * NPH 40 units Q AM with Dexamethasone IV dose * Lantus scale HS (15-25 units - see EHR for details) * Bolus insulin - tighten * NovoLog per scale ACHS and at 0200 tonight * Goal Range: Low 110 mg/dL - High 140 mg/dL * Correction Factor: 10 mg/dL/unit * Nutritional / Prandial insulin per carb ratio of 1 unit per 2 grams CHO consumed * Will leave with second shift pharmacist to assess appropriateness at dinner DISCHARGE: * A1c is reasonably controlled as an outpatient (7.8% on 08/13/19) * Goal for most adults is less than 7%, but given his age and multiple comorbidities, could consider A1c goal of less than 8% * If further A1c reduction is desired: * Consider addition of a once daily basal insulin (dose to be determined as steroids are tapered) vs. addition of a third oral agent such as linagliptin 5 mg PO daily, which is safe in patients with renal impairment
--- NOTE | 2019-10-20 08:41 | Pain Management Consultation ---
Date of Consultation October 20, 2019 Assessment & Plan (1) Closed L2 vertebral fracture: * He will finished Decadron course * Continue Oxycodone 5/325mg 1-2 tablets x 4 hrs PRN * Continue Dilaudid 0.5mg IV PRN breakthrough pain * I have added Lidocaine patches. * Patient is aware that he can take the Oxycodone more often but he wishes not to take many opioids. Would not recommend any changes. * Work closely with physical therapy as his leg strength has diminished during this hospital stay. Encounter type: initial encounter Fracture morphology: unspecified fracture morphology Qualified Code(s): S32.029A - Unspecified fracture of second lumbar vertebra, initial encounter for closed fracture History of Present Illness Attending Physician: Angus Stein MD History of Present Illness Mr. mcclendon is a 73-year-old male that is been seen in the [facility] for lumbar pain. Patient did have a mechanical fall and sustained an L2 fracture. Patient does have a prior history of T11-L1 fusion. He describes a constant aching and intermittent sharp pain along the upper lumbar region. He denies any radicular symptoms. Pain is aggravated with positional changes, standing, walking. Lying supine provides adequate pain relief. He does have a back brace which he will wear if he is out of bed. Pain is rated 6/10 currently. He does have oxycodone 5/325 1 to 2 tablets every 4 hours ordered. Yesterday he took 2 tablets within the day. Patient also took Dilaudid 0.5 mg x 1. He states that he does not like to take many medications and wants to "tough it out ". He does have some constipation with the use of opioids and did require an enema yesterday. He is on Colace. No bowel/bladder incontinence, saddle anesthesia, foot drop. Pain Assessment Full Body Front + Back: 1. [facility] Combined Pain Scale: 6-Mod to Severe - Significant limitations of ADLs. Hard to do anything Allergies Allergy/AdvReac Type Severity Reaction Status Date / Time tramadol [From Ultram] Allergy Severe Seizure Verified 10/12/19 13:49 haloperidol [From Haldol] Allergy Unknown Unknown Verified 10/12/19 13:49 Home Medications Home Medications Medication Instructions Recorded Confirmed Type acetaminophen 650 mg PO Q4H PRN MDD 10 02/06/19 10/12/19 History TABLETS/DAILY ascorbic acid (vitamin C) 1,000 mg PO BID 02/06/19 10/12/19 History aspirin 325 mg PO QAM 02/06/19 10/12/19 History atorvastatin 40 mg PO HS 02/06/19 10/12/19 History famotidine 20 mg PO BIDM 02/06/19 10/12/19 History folic acid 1 mg PO QAM 02/06/19 10/12/19 History furosemide 40 mg PO QAM 02/06/19 10/12/19 History glipizide 10 mg PO BIDM 02/06/19 10/12/19 History levothyroxine 25 mcg PO DAILYBB 02/06/19 10/12/19 History metformin 1,000 mg PO QAM 02/06/19 10/12/19 History cetirizine 10 mg PO HS 08/12/19 10/12/19 History escitalopram oxalate [Lexapro] 10 mg PO QAM 08/12/19 10/12/19 History finasteride 5 mg PO QDL 08/12/19 10/12/19 History losartan 50 mg PO QAM 08/12/19 10/12/19 History levetiracetam 750 mg PO Q12H 08/29/19 10/12/19 History metoprolol succinate 50 mg PO QAM 09/19/19 10/12/19 History Patient History Medical History Acute respiratory failure with hypoxia MARIELLE (acute kidney injury) Anemia CAD (coronary artery disease) Carotid artery occlusion Cerebral hypoperfusion CHF (congestive heart failure) CVA (cerebral vascular accident) CVA (cerebrovascular accident) (Acute) Diabetes Diabetes mellitus, type II GERD (gastroesophageal reflux disease) History of common carotid artery stent placement HLD (hyperlipidemia) Hypertension Hypomagnesemia Hypothyroidism Ischemic cardiomyopathy Paroxysmal SVT (supraventricular tachycardia) (Acute) Pulmonary edema Seizure (Acute) UTI (urinary tract infection) Surgical History History of arthroscopic knee surgery History of carotid endarterectomy History of cataract extraction History of left heart catheterization 1998 100% occlusion circumflex; RCA: 60%; LAD 30-40 and 60-80% distally Family History Father Coronary heart disease Stroke Mother Pulmonary embolism Social History Smoking Status: Former smoker Smoking End Date: "47 years ago"; Second Hand Exposure: No; Hx Alcohol Use: No Hx Substance Use: No Preferred Language: Macanese Communication Ability: Effective Assistant Statistician Required: No Beliefs That Will Affect Care: None marital status: Current Living Situation: Spouse Current Living Situation Comment: LIVES WITH current occupational status: retired 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 Does not appear in acute distress. HEAD/FACE: Normocephalic and atraumatic. EYES: No drainage or conjunctival injection. ENT: Nose without bleeding or discharge. Oral mucosa moist. CHEST/AXILLA: Chest movement symmetrical. No deformities noted. BACK: Pain is movement. There is nonfocal tenderness along the upper lumbar region. SKIN: [place], warm and dry. No rash noted. MS/EXTREMITY: Moving extremities appropriately. NEURO: Alert and appears oriented. Speech is fluent. Cranial Nerves are grossly intact. PSYCH: Alert, pleasant, affect is calm Results Diagnostic Review MRI Findings: MR lumbar spine wo con CLINICAL HISTORY: back pain DIFFICULTY AMBULATING. TRAUMA. TECHNIQUE: Sagittal and axial T1, T2 and STIR images were obtained. COMPARISON STUDY: CT scan dated 10/12/2019 OBSERVATIONS: There are no areas of marrow replacement to indicate neoplasm. There is subtle superior endplate L2 vertebral body edema, consistent with the patient's known superior endplate L2 fracture. L1-2: There is a minor circumferential disc bulge. There is no significant spinal or foraminal stenosis. There is a right-sided L1 pedicle screw L2-3: The disc is desiccated. There is a minimal circumferential disc bulge. There is no significant spinal or foraminal stenosis L3-4: There is a circumferential disc bulge. There is no significant spinal stenosis. There is very mild bilateral foraminal narrowing L4-5: There is disc degeneration. There is no significant spinal stenosis. There is minimal bilateral foraminal narrowing L5-S1: The disc is degenerated. There is moderately advanced facet joint arthropathy. There are no focal herniations. There is minor bilateral foraminal narrowing. There is no evidence of significant spinal stenosis. There is a horizontal cleavage through the anterior superior L2 endplate consistent with the patient's known fracture. There is bilateral paraspinal muscle atrophy The conus medullaris and cauda equina appear normal. IMPRESSION: 1. Redemonstration of the patient's transversely oriented fracture involving the anterior cortex and superior endplate of the L2 vertebral body. 2. No evidence of retropulsion. No evidence of epidural hematoma. 3. Multilevel degenerative change. ACT 112: Negative or not required by law. Electronically signed by: Marco Navarrete M.D. 10/16/2019 6:[address] Findings: CT lumbar spine wo con HISTORY: 73 years-old Male fall acute low back pain status post fall COMPARISON: CT abdomen and pelvis 08/29/2019 TECHNIQUE: Multiple axial CT images of the lumbar spine were obtained without the use of IV contrast. A dose lowering technique was used consistent with the principals of ALARA. FINDINGS: Extensive calcified plaque of the abdominal aorta without aneurysm. There is no adenopathy. Probable cyst of the inferior pole right kidney, 1.9 cm. Mild nonspecific bilateral perinephric stranding. Streak artifact from posterior interbody bethany and screw fusion hardware which is noted at the T11, T12 and L1 levels. The imaged hardware appears intact. No evidence of hardware loosening. Demineralized appearance of the bones. There is an acute obliquely oriented fracture involving the anterior cortex and superior endplate of the L2 vertebral body with separation of the fracture fragments measuring up to 6 mm. There is mild superior endplate compression of less than 20%. No retropulsion. Mild reactive paravertebral edema. Fracture does not extend into the posterior elements. No additional acute fracture or subluxation. Extensive anterior endplate bridging osteophytosis is noted with at least mild multilevel disc space narrowing. Mild to moderate disc space narrowing with chondrocalcinosis and partial bony fusion at L4-L5. Severe multilevel facet arthrosis. Remote right-sided L5 pars defect without spondylolisthesis. Image sacrum and iliac bones appear intact. Mild dextroscoliosis. Evaluation of the central canal and neuroforamina is better assessed by MRI. IMPRESSION: 1. Acute transversely oriented fracture involves the L2 vertebral body anterior cortex and superior endplate with less than 20% vertebral body height loss. No retropulsion. Mild associated reactive paravertebral edema. 2. No additional acute fracture or subluxation. ACT 112: Negative or not required by law. The above report was generated using voice recognition software. It may contain grammatical, syntax or spelling errors. Electronically signed by: Bhargav Gold M.D. 10/12/2019 1:24 PM Radiology Findings: XR lumbar spine 2-3V CLINICAL HISTORY: standing films with brace COMPARISON STUDY: 10/14/2019 FINDINGS: There is thoracolumbar spinal rodding. There are multilevel degenerative changes within the lumbar spine. There are prominent bridging anterior osteophytes. There are no subluxations. The recently reported L2 fracture is difficult to visualize on conventional radiographic imaging. IMPRESSION: 1. The recently described superior endplate L2 fracture is not visualized on conventional radiographic imaging 2. Degenerative change. No subluxations identified ACT 112: Negative or not required by law. Electronically signed by: Marco Navarrete M.D. 10/19/2019 9:02 AM
[2019-10-20] MEDS ORDERED: NovoLIN-N (NPH) PER UNIT CHARGE SQ SCH (09:00)
[2019-10-20] MEDS ORDERED: DEXAMETHASONE SOD PHOSPHATE 6 MG in SYRINGE 0 ML IV SCH (09:00)
[2019-10-20] MEDS: LIDOCAINE 5% 1 PATCH TD SCH (09:08)
[2019-10-20] MEDS: DOXYCYCLINE HYCLATE 100 MG CAP PO SCH ×2 (09:09→20:56)
[2019-10-20] MEDS: ASCORBIC ACID 500 MG TAB PO SCH ×2 (09:09→20:55)
[2019-10-20] MEDS: DOCUSATE SODIUM/SENNA 50/8.6MG TAB PO SCH (09:09)
[2019-10-20] MEDS: levETIRAcetam 250 MG TAB PO SCH ×2 (09:09→20:56)
[2019-10-20] MEDS: ASPIRIN 325 MG ECTAB PO SCH (09:10)
[2019-10-20] MEDS: FUROSEMIDE 40 MG TAB PO SCH (09:10)
[2019-10-20] MEDS: FOLIC ACID 1 MG TAB PO SCH (09:10)
[2019-10-20] MEDS: METOPROLOL SUCC 50MG EXT REL TAB PO SCH (09:10)
[2019-10-20] MEDS: FAMOTIDINE 20 MG TAB PO SCH ×2 (09:10→16:25)
[2019-10-20] MEDS: LOSARTAN POTASSIUM 50 MG TAB PO SCH (09:10)
[2019-10-20] MEDS: ESCITALOPRAM OXALATE 10 MG TAB PO SCH (09:10)
[2019-10-20] MEDS: INSULIN ASPART 100 UNITS/ML 3 ML PEN SC SCH ×4 (09:11→21:03)
[2019-10-20] MEDS: FINASTERIDE 5 MG TAB PO SCH (11:39)
[2019-10-20] MEDS: GUAIFENESIN/CODEINE 100MG/10MG 5ML UDC PO PRN (16:24)
[2019-10-20] MEDS: ATORVASTATIN 40 MG TAB PO SCH (20:56)
[2019-10-20] MEDS: CETIRIZINE HCL 10 MG TABLET PO SCH (20:56)
[2019-10-20] MEDS: INSULIN GLARGINE SOLOSTAR 100 UNITS/ML 3 ML PEN SC SCH (21:01)
[2019-10-20] MEDS: LACTULOSE SYRUP 20 GM/30 ML UDC PO PRN (21:05)
[2019-10-21] MEDS: LEVOTHYROXINE SODIUM 25 MCG TABLET PO SCH (06:30)
[2019-10-21] MEDS: BENZONATATE 100 MG CAPSULE PO PRN ×2 (07:31→17:28)
[2019-10-21] MEDS: ASPIRIN 325 MG ECTAB PO SCH (07:34)
[2019-10-21] MEDS: ESCITALOPRAM OXALATE 10 MG TAB PO SCH (07:34)
[2019-10-21] MEDS: levETIRAcetam 250 MG TAB PO SCH ×2 (07:35→20:40)
[2019-10-21] MEDS: FOLIC ACID 1 MG TAB PO SCH (07:36)
[2019-10-21] MEDS: METOPROLOL SUCC 50MG EXT REL TAB PO SCH (07:36)
[2019-10-21] MEDS: FUROSEMIDE 40 MG TAB PO SCH (07:36)
[2019-10-21] MEDS: DOCUSATE SODIUM/SENNA 50/8.6MG TAB PO SCH (07:37)
[2019-10-21] MEDS: FAMOTIDINE 20 MG TAB PO SCH ×2 (07:37→17:28)
[2019-10-21] MEDS: DEXAMETHASONE SOD PHOSPHATE 4 MG in SYRINGE 0 ML IV SCH (07:38)
[2019-10-21] MEDS: LOSARTAN POTASSIUM 50 MG TAB PO SCH (07:39)
[2019-10-21] MEDS: LIDOCAINE 5% 1 PATCH TD SCH (07:39)
[2019-10-21] MEDS: ASCORBIC ACID 500 MG TAB PO SCH ×2 (07:40→20:40)
[2019-10-21] MEDS: DOXYCYCLINE HYCLATE 100 MG CAP PO SCH ×2 (07:40→20:40)
[2019-10-21] MEDS: INSULIN ASPART 100 UNITS/ML 3 ML PEN SC SCH ×4 (09:19→20:48)
[2019-10-21] MEDS ORDERED: INSULIN HUMAN NPH SC ONE (09:30)
[2019-10-21] MEDS: OXYCODONE/ACETAMINOPHEN 5mg/325mg TAB PO PRN (13:09)
[2019-10-21] MEDS: FINASTERIDE 5 MG TAB PO SCH (13:09)
[2019-10-21] MEDS: GUAIFENESIN/CODEINE 100MG/10MG 5ML UDC PO PRN ×2 (13:09→20:45)
--- NOTE | 2019-10-21 20:14 | Hospitalist Progress Note ---
Date of Service delayed entry date of service 10/20/19 October 21, 2019 Assessment & Plan Admission and Anticipated Discharge Date Admission Date: October 12, 2019 Subjective ff up for back pain,L2 fracture, etc seen resting in bed, comfortable states he had significant pain with PT improving in the afternoon no BM, but (+) flatus no nausea, abdominal pain no other symptoms Review of Systems Review of Systems: All systems reviewed & are unremarkable except as noted in HPI & below Physical Exam Physical Exam: General- oriented x 3, not in distress, speaks in sentences with no effort or accessory muscle use Eyes- anicteric Neck- no JVD Lungs- clear BS BL Heart- normal rate, regular rhythm; no murmurs Abdomen- normal bowel sounds, nondistended, soft, nontender Extremities- no pretibial edema, no calf tenderness Neuro- alert, oriented x 3; no gross focal neurologic deficits Skin- warm & dry Results & Data Results & Data ([facility]) Vital Signs (Past 12 Hours) Vital Signs Temp Pulse Resp BP Pulse Ox 10/21/19 16:00 37.1 C 66 18 95/59 L 95
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
[2019-10-21] MEDS: CETIRIZINE HCL 10 MG TABLET PO SCH (20:40)
[2019-10-21] MEDS: ATORVASTATIN 40 MG TAB PO SCH (20:40)
[2019-10-21] MEDS: INSULIN GLARGINE SOLOSTAR 100 UNITS/ML 3 ML PEN SC SCH (20:49)
[2019-10-22] MEDS: LEVOTHYROXINE SODIUM 25 MCG TABLET PO SCH (05:52)
[2019-10-22] MEDS: BENZONATATE 100 MG CAPSULE PO PRN ×2 (06:36→19:19)
[2019-10-22] MEDS: OXYCODONE/ACETAMINOPHEN 5mg/325mg TAB PO PRN ×2 (08:31→17:52)
[2019-10-22] MEDS: METOPROLOL SUCC 50MG EXT REL TAB PO SCH (08:34)
[2019-10-22] MEDS: ASPIRIN 325 MG ECTAB PO SCH (08:34)
[2019-10-22] MEDS: ESCITALOPRAM OXALATE 10 MG TAB PO SCH (08:34)
[2019-10-22] MEDS: FAMOTIDINE 20 MG TAB PO SCH ×2 (08:34→17:52)
[2019-10-22] MEDS: FUROSEMIDE 40 MG TAB PO SCH (08:35)
[2019-10-22] MEDS: FOLIC ACID 1 MG TAB PO SCH (08:35)
[2019-10-22] MEDS: LOSARTAN POTASSIUM 50 MG TAB PO SCH (08:35)
[2019-10-22] MEDS: levETIRAcetam 250 MG TAB PO SCH ×2 (08:36→20:52)
[2019-10-22] MEDS: DOXYCYCLINE HYCLATE 100 MG CAP PO SCH ×2 (08:37→20:52)
[2019-10-22] MEDS: LIDOCAINE 5% 1 PATCH TD SCH (08:37)
[2019-10-22] MEDS: ASCORBIC ACID 500 MG TAB PO SCH ×2 (08:38→20:52)
[2019-10-22] MEDS: DOCUSATE SODIUM/SENNA 50/8.6MG TAB PO SCH (08:38)
[2019-10-22] MEDS: GUAIFENESIN/CODEINE 100MG/10MG 5ML UDC PO PRN ×2 (08:55→20:52)
[2019-10-22] MEDS ORDERED: INSULIN HUMAN NPH SC SCH (09:00)
[2019-10-22] MEDS: INSULIN ASPART 100 UNITS/ML 3 ML PEN SC SCH ×4 (09:48→20:58)
[2019-10-22] MEDS: DEXAMETHASONE SOD PHOSPHATE 4 MG in SYRINGE 0 ML IV SCH (09:54)
[2019-10-22] MEDS: FINASTERIDE 5 MG TAB PO SCH (13:05)
[2019-10-22] MEDS: HYDROmorphone INJ 0.5 MG/0.5 ML SYR IV PRN ×2 (13:19→19:19)
[2019-10-22] MEDS ORDERED: SODIUM CHLORIDE 0.9% 1000ML 1,000 ML IV SCH (14:19)
--- NOTE | 2019-10-22 14:23 | Pharmacy Report ---
Pharmacy Glycemic Short Note 2 - Date of Service October 22, 2019 - Glycemic Short BSG Results (Last 24 hours): 10/21/19 10/21/19 10/22/19 17:10 20:37 08:30 POC Glucose 185 H 237 H 109 H 10/22/19 12:17 POC Glucose 166 H OUTPATIENT ANTIDIABETIC REGIMEN: * Glipizide 10 mg PO BIDM * Metformin 1000 mg PO BIDM * HbA1c: 7.8% ASSESSMENT: * Slight improvement in BSGs over the last 24 hours. Patient continues to experience post prandial elevations. * She received 173 units of insulin yesterday * Remains on dexamethasone 4 mg IV daily * Fasting BSG of 109 mg/dL this morning. Continue current basal dose. * NPH being utilized to cover for steroid induced hyperglycemia. Will increase dose by ~30%. PLAN FOR INPATIENT GLYCEMIC CONTROL: * Hold outpatient oral diabetes medications * Basal insulin - NPH + Lantus scale in the evening * Increase NPH to 45 units QAM with Dexamethasone IV dose * Lantus scale qHS (20-25 units - see EHR for details) * Bolus insulin * NovoLog per scale ACHS and at 0200 tonight * Goal Range: Low 110 mg/dL - High 140 mg/dL * Correction Factor: 10 mg/dL/unit * Nutritional / Prandial insulin per carb ratio of 1 unit per 2 grams CHO consumed DISCHARGE: * A1c is reasonably controlled as an outpatient (7.8% on 08/13/19) * Goal for most adults is less than 7%, but given his age and multiple comorbidities, could consider A1c goal of less than 8% * If further A1c reduction is desired: * Consider addition of a once daily basal insulin (dose to be determined as steroids are tapered) vs. addition of a third oral agent such as linagliptin 5 mg PO daily, which is safe in patients with renal impairment
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
[2019-10-22] MEDS: ATORVASTATIN 40 MG TAB PO SCH (20:52)
[2019-10-22] MEDS: CETIRIZINE HCL 10 MG TABLET PO SCH (20:52)
[2019-10-22] MEDS: INSULIN GLARGINE SOLOSTAR 100 UNITS/ML 3 ML PEN SC SCH (21:00)
[2019-10-22] MEDS: SODIUM CHLORIDE 0.9% 1000ML 1,000 ML IV SCH (21:25)
[2019-10-22 22:55] VITALS: TEMP 97.7
[2019-10-23] MEDS: LEVOTHYROXINE SODIUM 25 MCG TABLET PO SCH (05:01)
[2019-10-23] MEDS: BENZONATATE 100 MG CAPSULE PO PRN ×2 (05:06→20:20)
[2019-10-23] MEDS ORDERED: INSULIN HUMAN NPH SC ONE (07:30)
[2019-10-23] MEDS: levETIRAcetam 250 MG TAB PO SCH ×2 (09:00→20:14)
[2019-10-23] MEDS: OXYCODONE/ACETAMINOPHEN 5mg/325mg TAB PO PRN ×2 (09:00→13:26)
[2019-10-23] MEDS ORDERED: DEXAMETHASONE SOD PHOSPHATE 2 MG in SYRINGE 0 ML IV SCH (09:00)
[2019-10-23] MEDS: FOLIC ACID 1 MG TAB PO SCH (09:01)
[2019-10-23] MEDS: ESCITALOPRAM OXALATE 10 MG TAB PO SCH (09:01)
[2019-10-23] MEDS: ASPIRIN 325 MG ECTAB PO SCH (09:02)
[2019-10-23] MEDS: METOPROLOL SUCC 50MG EXT REL TAB PO SCH (09:02)
[2019-10-23] MEDS: FAMOTIDINE 20 MG TAB PO SCH ×2 (09:03→18:01)
[2019-10-23] MEDS: DOXYCYCLINE HYCLATE 100 MG CAP PO SCH (09:04)
[2019-10-23] MEDS: ASCORBIC ACID 500 MG TAB PO SCH ×2 (09:04→20:13)
[2019-10-23] MEDS: GUAIFENESIN/CODEINE 100MG/10MG 5ML UDC PO PRN ×2 (09:14→21:18)
[2019-10-23] MEDS: INSULIN ASPART 100 UNITS/ML 3 ML PEN SC SCH ×4 (09:41→21:18)
[2019-10-23] MEDS: DOCUSATE SODIUM/SENNA 50/8.6MG TAB PO SCH ×2 (09:42→09:46)
[2019-10-23] MEDS: LIDOCAINE 5% 1 PATCH TD SCH (09:42)
[2019-10-23] MEDS: FINASTERIDE 5 MG TAB PO SCH (12:28)
[2019-10-23] MEDS: SODIUM CHLORIDE 0.9% 1000ML 1,000 ML IV SCH (13:25)
--- NOTE | 2019-10-23 13:31 | Pharmacy Report ---
Pharmacy Glycemic Short Note 2 - Date of Service October 23, 2019 - Glycemic Short BSG Results (Last 24 hours): 10/22/19 10/22/19 10/22/19 14:22 17:16 20:46 POC Glucose 177 H 165 H 205 H 10/23/19 12:23 POC Glucose 187 H OUTPATIENT ANTIDIABETIC REGIMEN: * Glipizide 10 mg PO BIDM * Metformin 1000 mg PO BIDM * HbA1c: 7.8% ASSESSMENT: * BSGs have been reasonably well-controlled over the past 24 hours (ranging from 90-205 mg/dL). * Steroids have been discontinued at this time. * Small dose of NPH provided this morning to cover residual effects of DXM today. Don't anticipate that pt will require further NPH unless steroids are resumed. * Carb ratio was loosened slightly today, as patient's insulin needs are expected to lessen as steroids wear off. PLAN FOR INPATIENT GLYCEMIC CONTROL: * Hold outpatient oral diabetes medications * Basal insulin - NPH + Lantus scale in the evening * NPH 15 units x1 dose this morning * Lantus scale qHS (20-25 units - see EHR for details) * Bolus insulin * NovoLog per scale ACHS and at 0200 tonight * Goal Range: Low 110 mg/dL - High 140 mg/dL * Correction Factor: 10 mg/dL/unit * Nutritional / Prandial insulin per carb ratio of 1 unit per 3 grams CHO consumed DISCHARGE: * A1c is reasonably controlled as an outpatient (7.8% on 08/13/19) * Goal for most adults is less than 7%, but given his age and multiple comorbidities, could consider A1c goal of less than 8% * If further A1c reduction is desired: * Consider addition of a once daily basal insulin (dose to be determined as steroids are tapered) vs. addition of a third oral agent such as linagliptin 5 mg PO daily, which is safe in patients with renal impairment
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
[2019-10-23] MEDS: HYDROmorphone INJ 0.5 MG/0.5 ML SYR IV PRN (18:05)
[2019-10-23] MEDS: ATORVASTATIN 40 MG TAB PO SCH (20:14)
[2019-10-23] MEDS: CETIRIZINE HCL 10 MG TABLET PO SCH (20:15)
[2019-10-23] MEDS: INSULIN GLARGINE SOLOSTAR 100 UNITS/ML 3 ML PEN SC SCH (21:18)
[2019-10-24] MEDS: LEVOTHYROXINE SODIUM 25 MCG TABLET PO SCH (05:54)
[2019-10-24] MEDS: BENZONATATE 100 MG CAPSULE PO PRN (05:57)
[2019-10-24] MEDS: OXYCODONE/ACETAMINOPHEN 5mg/325mg TAB PO PRN ×3 (06:02→14:02)
[2019-10-24 07:27] VITALS: BP 132/80; O2SAT 98
[2019-10-24] MEDS: INSULIN ASPART 100 UNITS/ML 3 ML PEN SC SCH ×2 (09:25→13:17)
[2019-10-24] MEDS: levETIRAcetam 250 MG TAB PO SCH (09:27)
[2019-10-24] MEDS: FAMOTIDINE 20 MG TAB PO SCH (09:27)
[2019-10-24] MEDS: ASCORBIC ACID 500 MG TAB PO SCH (09:27)
[2019-10-24] MEDS: FOLIC ACID 1 MG TAB PO SCH (09:27)
[2019-10-24] MEDS: ESCITALOPRAM OXALATE 10 MG TAB PO SCH (09:28)
[2019-10-24] MEDS: METOPROLOL SUCC 50MG EXT REL TAB PO SCH (09:28)
[2019-10-24] MEDS: LIDOCAINE 5% 1 PATCH TD SCH (09:29)
[2019-10-24] MEDS: ASPIRIN 325 MG ECTAB PO SCH (09:29)
[2019-10-24] MEDS: DOCUSATE SODIUM/SENNA 50/8.6MG TAB PO SCH (09:31)
--- NOTE | 2019-10-24 10:21 | Pharmacy Report ---
Pharmacy Glycemic Short Note 2 - Date of Service October 24, 2019 - Glycemic Short BSG Results (Last 24 hours): 10/23/19 10/23/19 10/23/19 08:24 12:23 17:16 POC Glucose 90 187 H 75 10/23/19 10/23/19 10/24/19 19:35 20:29 08:10 POC Glucose 108 H 121 H 84 OUTPATIENT ANTIDIABETIC REGIMEN: * Glipizide 10 mg PO BIDM * Metformin 1000 mg PO BIDM * HbA1c: 7.8% ASSESSMENT: 10/24/19: * Mr Barrett received 101 units of insulin yesterday: * 35 units of basal insulin * 66 units of prandial/correctional insulin * BSGs ranged from 75-187 during the past 24 hours * Expect that the effects of dexamethasone on BSGs have largely dissipated by now. Will further reduce basal insulin tonight and loosen Novolog parameters significantly. 10/23/19 * BSGs have been reasonably well-controlled over the past 24 hours (ranging from 90-205 mg/dL). * Steroids have been discontinued at this time. * Small dose of NPH provided this morning to cover residual effects of DXM today. Don't anticipate that pt will require further NPH unless steroids are resumed. * Carb ratio was loosened slightly today, as patient's insulin needs are expected to lessen as steroids wear off. PLAN FOR INPATIENT GLYCEMIC CONTROL: * Hold outpatient oral diabetes medications * Basal insulin - * Lantus scale qHS (10-15 units - see EHR for details) * Bolus insulin * NovoLog per scale ACHS * Goal Range: Low 110 mg/dL - High 140 mg/dL * Correction Factor: 20 mg/dL/unit * Nutritional / Prandial insulin per carb ratio of 1 unit per 6 grams CHO consumed DISCHARGE: * A1c is reasonably controlled as an outpatient (7.8% on 08/13/19) * Goal for most adults is less than 7%, but given his age and multiple comorbidities, could consider A1c goal of less than 8% * If further A1c reduction is desired: * Consider addition of a once daily basal insulin (dose to be determined as steroids are tapered) vs. addition of a third oral agent such as linagliptin 5 mg PO daily, which is safe in patients with renal impairment
[2019-10-24] MEDS: FINASTERIDE 5 MG TAB PO SCH (12:33)
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
[2019-10-24 13:04] VITALS: PULSE 65
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
== END 2019-10-24 15:08 | DRG 552 ==
LOC: ED 12:05 → SUATTDRO 14:09 → 2N 14:09 → 3N 10-19 20:16

== ENCOUNTER 2021-04-12 14:12 | Inpatient (IN) ==
[2021-04-12] MEDS ORDERED: ONDANSETRON INJ 2 MG/ML 2 ML VIAL IV STA ×2 (14:35→18:52)
[2021-04-12] MEDS ORDERED: SODIUM CHLORIDE 0.9% 500 ML IV SCH (14:45)
--- NOTE | 2021-04-12 14:47 | Emergency Department Note ---
Impression & Plan Low back pain, Nausea & vomiting, Diarrhea, Hypoxia ED Provider Note Provider: Bala Tabares MD DATE OF SERVICE: 04/12/2021 CHIEF COMPLAINT: Diarrhea, low back pain, nausea vomiting HISTORY OF PRESENT ILLNESS: Patient is a 75-year-old gentleman history of blindness, type 2 diabetes, CVA, CAD, hypertension, and UTI presenting via ambulance from his home today with report of onset since 530 this morning of many episodes of loose diarrhea. Ports bit of low back pain but denies any abdominal pain. Reports some nausea and some episodes of vomiting. Denies any fever or chills. Denies shortness of breath or chest pain. Denies sick contacts to his knowledge or any suspect food intake recently. Patient denies a history of infectious diarrheas to his knowledge. Patient states he is unsure if he is been able to keep down his medicines given the vomiting. States has not been able to eat much today and its all been coming back up when he tries to eat. Patient's caregiver later arrived and states that the patient yesterday was somewhat weak and several days ago he bent backwards a bit on the bed and did seem to hurt his low back. Is a history of back surgery. She reports the diarrhea and significant vomiting as the patient described occurred again to starting this morning. Caregiver does report the patient's blood sugars have been running low and he has required some orange juice sugar supplementation. REVIEW OF SYSTEMS: A total of 10 review of systems was obtained and negative except as stated above in the HPI. PAST MEDICAL HISTORY: As noted above MEDICATIONS: Reviewed home medication list SOCIAL HISTORY: Lives at home PHYSICAL EXAM: GENERAL: alert and oriented in no acute distress on stretcher Head: normocephalic and atraumatic EYES: No injection, discharge or icterus. NECK: Trachea midline. Supple. ENT: Mucous membranes pink and moist. LUNGS: Airway patent. No retractions. Breath sounds clear with diminished bases HEART: Regular rate and rhythm. No chest wall tenderness ABDOMEN: Soft obese, and non-tender, without guarding or rebound. BACK: No bilateral flank tenderness. SKIN: Acyanotic, warm, dry, without rashes EXTREMITIES: Without swelling, tenderness or deformity NEUROLOGICAL: No aphasia. No facial droop or slurred speech. Moves all extremities. Blind at baseline. EK bpm normal sinus rhythm. No PVC or PAC. No acute ST segment elevation noted with a QTC of 464. CONTINUOUS CARDIAC MONITORING: was ordered and showed a heart rate of 70s-90s bpm in normal sinus rhythm Patient's laboratory studies and imaging reviewed. Differential includes Appendicitis, testicular torsion, infections, diverticulitis, UTI, obstruction, mesenteric ischemia, aortic pathology, inflammatory bowel disease, renal colic, PUD, pancreatitis, biliary pathology, hernia, volvulus, constipation, as well as other pathologies. IMPRESSION/MEDICAL DECISION MAKING: Patient presents onset this morning some low back pain with diarrhea nausea and vomiting. Was noted here to become slightly hypoxic but denies significant chest pain or shortness of breath. COVID test sent. Basic labs obtained. Stool PCR to be performed when sample provided. Patient with minimal leukocytosis of just over 11. Stable mild anemia. Denies significant abdominal pain but a CT scan of the abdomen pelvis as well as CT scan of the chest to be completed look for possible pulmonary or gastrointestinal pathology. No significant new numbness in the lower extremities noted. Blood work completed today without evidence of acute hepatitis or pancreatitis. Mild hyponatremia noted. Stable renal function. No troponin elevation and again the patient denies chest pain. CT scans without evidence of PE and trace pulmonary effusions. No pneumonia findings noted with chronic pulmonary nodules. Liquid stool in the colon but no other acute findings. The radiology report. CT of the lumbar spine without acute traumatic injury noted here. Patient given some Toradol for pain. Patient given some additional Zofran for nausea. Given his comorbidities and discussion with him and his feel that further observation pending stool sample collection and improvement of his diarrheal symptoms as indicated. Still not entirely clear why he is having some transient hypoxia wonder if it could be slightly positional given his habitus. No evidence again of pneumonia or PE. COVID-negative. Minimal oxygen supplementation at this point. We will have the hospitalist evaluate. DIAGNOSIS: Nausea and vomiting, hypoxia, diarrhea, low back pain DISPOSITION: Hospitalist will evaluate Patient was agreeable with this plan. Past Med/Surg History Medical History (Updated 04/12/21 @ 18:55 by Bala Tabares M.D.) Acute respiratory failure with hypoxia MARIELLE (acute kidney injury) Anemia CAD (coronary artery disease) Carotid artery occlusion Cerebral hypoperfusion CHF (congestive heart failure) CVA (cerebral vascular accident) CVA (cerebrovascular accident) Diabetes Diabetes mellitus, type II GERD (gastroesophageal reflux disease) History of common carotid artery stent placement HLD (hyperlipidemia) Hypertension Hypomagnesemia Hypothyroidism Ischemic cardiomyopathy Paroxysmal SVT (supraventricular tachycardia) Pulmonary edema Seizure UTI (urinary tract infection) Surgical History History of arthroscopic knee surgery History of carotid endarterectomy History of cataract extraction History of left heart catheterization 1998 100% occlusion circumflex; RCA: 60%; LAD 30-40 and 60-80% distally Family History Father Coronary heart disease Stroke Mother Pulmonary embolism Social History Smoking Status: Former smoker Second Hand Exposure: No; Hx Alcohol Use: No Hx Substance Use: No Preferred Language: Occitan Communication Ability: Effective Coordinator Of Genetic Services Required: No Beliefs That Will Affect Care: None marital status: Current Living Situation: Spouse Current Living Situation Comment: LIVES WITH current occupational status: 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 Feels Safe at Home: Yes Assistive Devices: Walker Allergies Allergies Allergy/AdvReac Type Severity Reaction Status Date / Time tramadol [From Ultram] Allergy Severe Seizure Verified 10/12/19 13:49 haloperidol [From Haldol] Allergy Unknown Unknown Verified 10/12/19 13:49 Home Meds Home Medications Medication Instructions Recorded Confirmed acetaminophen 325 mg tablet 650 mg PO Q4H PRN MDD 10 02/06/19 10/12/19 TABLETS/DAILY ascorbic acid (vitamin C) 500 mg 500 mg PO BID 02/06/19 04/12/21 tablet aspirin 325 mg tablet 325 mg PO QAM 02/06/19 10/12/19 atorvastatin 40 mg tablet 40 mg PO HS 02/06/19 10/12/19 famotidine 20 mg tablet 20 mg PO BIDM 02/06/19 10/12/19 folic acid 1 mg tablet 1 mg PO QAM 02/06/19 10/12/19 furosemide 40 mg tablet 40 mg PO QAM 02/06/19 10/12/19 glipizide 10 mg tablet 10 mg PO BIDM 02/06/19 10/12/19 levothyroxine 25 mcg tablet 25 mcg PO DAILYBB 02/06/19 10/12/19 metformin 1,000 mg tablet 1,000 mg PO BID 02/06/19 04/12/21 cetirizine 10 mg tablet 10 mg PO HS 08/12/19 10/12/19 escitalopram oxalate 10 mg tablet 10 mg PO QAM 08/12/19 10/12/19 (Lexapro) finasteride 5 mg tablet 5 mg PO QDL 08/12/19 10/12/19 levetiracetam 750 mg tablet 750 mg PO Q12H 08/29/19 10/12/19 metoprolol succinate 25 mg 50 mg PO QAM 09/19/19 10/12/19 tablet,extended release 24 hr albuterol sulfate 2.5 mg INHALATION Q4H PRN 04/12/21 04/12/21 benzonatate 100 mg capsule 200 mg PO TID 04/12/21 04/12/21 bisacodyl 10 mg rectal suppository 10 mg RI DAILY PRN 04/12/21 04/12/21 cyanocobalamin (vitamin B-12) 500 500 mcg PO DAILY 04/12/21 04/12/21 mcg tablet dextromethorphan-guaifenesin 15 10 ml PO Q4H PRN 04/12/21 04/12/21 mg-100 mg/5 mL oral syrup metoprolol succinate 50 mg 25 mg PO DAILY 04/12/21 04/12/21 tablet,extended release 24 hr multivitamin 1 tab PO DAILY 04/12/21 04/12/21 mupirocin 2 % topical ointment 1 applic TOPICAL DAILY PRN 04/12/21 04/12/21 potassium chloride 20 mEq 10 meq PO DAILY 04/12/21 04/12/21 tablet,extended release semaglutide 1 mg/dose (4 mg/3 mL) 1 mg SUBCUT WK 04/12/21 04/12/21 subcutaneous pen injector sennosides 8.6 mg-docusate sodium 1 tab PO HS 04/12/21 04/12/21 50 mg tablet (Senokot-S) Previous Rx's Medication Instructions Recorded lactulose 20 gram/30 mL oral 20 gm PO TID PRN #600 ml 10/24/19 solution lidocaine 5 % topical patch 1 patch TRANSDERMAL QAM #30 ea 10/24/19 oxycodone-acetaminophen 5 mg-325 2 tab PO Q4H PRN #20 tab 10/24/19 mg tablet (Percocet) Results & Data (ED) Vital Signs Vital Signs - 24 hr 04/12/21 13:51 04/12/21 14:35 04/12/21 15:03 Temperature 36.6 C Temperature Source Oral Pulse Rate 88 86 Pulse Rhythm Regular Regular Pulse Strength Normal Respiratory Rate 20 20 Respiratory Effort / Characteristics Non-Labored Non-Labored Respiratory Depth Normal Respiratory Pattern Regular Blood Pressure 144/83 H Blood Pressure Mean 103 Blood Pressure Position Lying Pulse Oximetry 93 86 L Oxygen Delivery Method Room Air Room Air Oxygen Flow Rate Sepsis Recent Fever Within 48 Hours No Sepsis New/Unexplained Change in Mental Status No Sepsis Action Taken by Nursing No Action Required 04/12/21 15:04 Temperature Temperature Source Pulse Rate Pulse Rhythm Pulse Strength Respiratory Rate Respiratory Effort / Characteristics Respiratory Depth Respiratory Pattern Blood Pressure Blood Pressure Mean Blood Pressure Position Pulse Oximetry 92 Oxygen Delivery Method Nasal Cannula Oxygen Flow Rate 2 Sepsis Recent Fever Within 48 Hours Sepsis New/Unexplained Change in Mental Status Sepsis Action Taken by Nursing Laboratory Data Result diagrams: 04/12/21 14:37 04/12/21 14:37 Lab Results 04/12/21 04/12/21 04/12/21 Range/Units 12:55 14:37 14:37 WBC 11.12 H (4.8-10.8) K/uL RBC 3.92 L (4.7-6.1) M/uL Hgb 10.8 L (14.0-18.0) g/dL Hct 34.7 L (42-52) % MCV 88.5 (80-100) fL MCH 27.6 (25-34) pg MCHC 31.1 L (32-36) g/dL RDW Std Deviation 52.1 H (36.4-46.3) fL RDW Coeff of Marva 16.1 H (11.5-14.5) % Plt Count 385 (130-400) K/uL MPV 9.6 (7.4-10.4) fL Immature Gran % (Auto) 0.3 % Neut % (Auto) 76.1 % Lymph % (Auto) 16.9 % [place] % (Auto) 4.9 % Eos % (Auto) 1.6 % Baso % (Auto) 0.2 % Neut # (Auto) 8.47 H (1.4-6.5) K/uL Lymph # (Auto) 1.88 (1.2-3.4) K/uL [place] # (Auto) 0.54 (0.11-0.59) K/uL Eos # (Auto) 0.18 (0-0.5) K/uL Baso # (Auto) 0.02 (0-0.2) K/uL Immature Gran # (Auto) 0.03 H (0.00-0.02) K/uL Sodium 132 L (136-145) mmol/L Potassium 4.7 (3.5-5.1) mmol/L Chloride 95 L (98-107) mmol/L Carbon Dioxide 28 (21-32) mmol/L Anion Gap 9 (3-11) BUN 15 (6-23) mg/dl Creatinine 1.19 (0.6-1.4) mg/dl Est Cr Clr Drug Dosing 79.4 ml/min Est GFR ( Amer) 69.8 ml/min Est GFR (Non-Af Amer) 60.2 ml/min BUN/Creatinine Ratio 12.6 (10-20) Glucose 127 H (70-99(Fasting)) mg/dl Calcium 9.2 (8.5-10.1) mg/dl Total Bilirubin 0.5 (0.2-1.0) mg/dl AST 41 H (13-39) U/L ALT 44 (7-52) U/L Alkaline Phosphatase 97 (34-104) U/L Troponin I < 0.03 (0-0.04) ng/ml Total Protein 7.9 (6.0-8.3) gm/dl Albumin 3.8 (3.4-5.0) gm/dl Globulin 4.1 H (2.5-4.0) gm/dl Albumin/Globulin Ratio 0.9 (0.9-2) Lipase 11 (11-82) U/L SARS-CoV-2, RNA, NAAT NEGATIVE (NEGATIVE) Administered Medications Lactated Ringer's (Lr) 1,000 mls @ 80 mls/hr IV .[id number] [facility] Stop: 05/12/21 18:59 Last Admin: 04/12/21 19:23 Dose: 80 mls/hr Documented by: [id number] Discontinued Medications Sodium Chloride (Nss) 500 mls @ 999 mls/hr IV .Q31M [facility] Stop: 04/12/21 15:15 Last Admin: 04/12/21 14:58 Dose: 999 mls/hr Documented by: [id number] Ioversol (Optiray 320 125ml) 104 ml IV ONCE ONE Stop: 04/12/21 17:10 Last Admin: 04/12/21 17:11 Dose: 104 ml Documented by: [id number] Ketorolac Tromethamine (Ketorolac Tromethamine 15 Mg/Ml Vial) 10 mg IV NOW ONE Stop: 04/12/21 18:53 Last Admin: 04/12/21 19:23 Dose: 10 mg Documented by: [id number] Ondansetron HCl (Ondansetron Inj 2 Mg/Ml 2 Ml Vial) 4 mg IV NOW STA Stop: 04/12/21 14:36 Last Admin: 04/12/21 14:58 Dose: 4 mg Documented by: [id number] Ondansetron HCl (Ondansetron Inj 2 Mg/Ml 2 Ml Vial) 4 mg IV NOW STA Stop: 04/12/21 18:53 Last Admin: 04/12/21 19:23 Dose: 4 mg Documented by: [id number] Imaging Data Radiologist's Impression: Abdomen/Pelvis CT 04/12/21 14:35 CT ANGIOGRAM OF THE CHEST; CT SCAN OF THE ABDOMEN AND PELVIS WITH IV CONTRAST CLINICAL HISTORY: Atypical chest pain. Back pain. Vomiting. Hypoxia. Generalized abdominal pain. Diarrhea. COMPARISON STUDY: CT scan of the chest, abdomen, and pelvis dated 08/29/2019. TECHNIQUE: Following the IV administration of 104 of Optiray 320, CT angiogram of the chest is performed from the upper abdomen to the thoracic inlet utilizing the pulmonary embolus protocol. Images are reviewed in the axial, sagittal, coronal planes. 3-D MIPS images are created and assessed. Subsequently, CT scan of the abdomen and pelvis was performed from the lung bases to the proximal femora. Images are reviewed in the axial, sagittal, and coronal planes. IV contrast was administered without complication. A dose lowering technique was utilized adhering to the principles of ALARA. The examination is significantly degraded by large body habitus, and streak artifact from the body wall abutting the CT gantry. There is also extensive metallic streak artifact from spinal rods, as well as streak artifact from the arms which could not be elevated above the chest or abdomen. There is also motion artifact. FINDINGS: CHEST: Thyroid: Imaged portions of the thyroid gland are normal in size and attenuation. Thoracic aorta: There is atherosclerotic calcification of the thoracic aorta, which is normal in caliber and demonstrates standard 3-vessel arch anatomy. No dissection is seen. Pulmonary vasculature: The pulmonary trunk is normal in caliber. There are no filling defects identified in the main, lobar, or proximal segmental pulmonary arteries to indicate pulmonary embolus. Evaluation of the segmental and subsegmental branches is degraded by motion artifact. Heart: The heart is enlarged and without pericardial effusion. The coronary arteries are densely calcified. Lungs and pleural spaces: Evaluation of the lung parenchyma is degraded by motion artifact. There are small pleural effusions with dependent atelectasis. No airspace consolidation is seen typical for pneumonia. Linear atelectasis/scarring is seen in the right upper lobe lung the major fissure. Secretions are noted within the trachea and right mainstem bronchus. There is diffuse peribronchial thickening. A 3 mm right upper lobe pulmonary nodule on image #167 is unchanged, as is a 5 mm right middle lobe pulmonary nodule seen on image #112. Mediastinum: There is no mediastinal lymphadenopathy. Nyla: Mildly enlarged hilar nodes measure up to 13 mm in short axis. Axillae: There is no axillary lymphadenopathy. Bony thorax: The skeletal structures are osteopenic. Arthritic change is noted in the shoulders. Degenerative changes seen throughout the thoracic spine with extensive postoperative change with multilevel laminectomy and posterior fusion. This extends from the upper thoracic spine and lumbar spine. The orthopedic hardware appears intact. No lytic or blastic lesions are identified. There are chronic/healed bilateral rib fractures. ABDOMEN AND PELVIS: Liver: The contrast-enhanced liver is mildly enlarged and demonstrates diffusely diminished attenuation consistent with hepatic steatosis. There is no intrahepatic or ductal dilatation. The hepatic veins and portal veins are patent. Gallbladder: There are calcified gallstones with no CT evidence of acute ch olecystitis. Spleen: Normal in size and attenuation. Pancreas: Moderately atrophic and grossly unremarkable. Adrenal glands: Unremarkable. Kidneys: The contrast enhanced kidneys demonstrate cortical atrophy and are without hydronephrosis. The kidneys enhance symmetrically. Foci of cortical scarring are seen throughout the left kidney. Abdominal vasculature: The abdominal aorta is normal in course and caliber noting advanced atherosclerotic calcification. Stomach and bowel: There is a small hiatal hernia. There is moderate diverticulosis of the left colon without CT evidence of acute diverticulitis. No bowel obstruction is seen. Liquid stool seen throughout the colon. Tiny duodenal diverticula are noted. The appendix is not visualized. Peritoneum: There is no intraperitoneal free air or abdominal ascites. Lymphadenopathy: None. Pelvic viscera: The prostate gland is diminutive and heterogeneous. The bladder is distended but otherwise normal in appearance. Skeletal structures: The skeletal structures are osteopenic. There is chronic posttraumatic deformity of the L2 vertebral body. Spondylotic and postoperative change is noted in the lumbar spine. No lytic or blastic lesions are seen. IMPRESSION: 1. Significantly streak and motion degraded examinations. 2. There is no evidence of pulmonary embolus in the main, lobar, or proximal segmental pulmonary arteries. 3. Cardiomegaly and trace pleural effusions. 4. There is no airspace consolidation typical for pneumonia. 5. Chronic pulmonary parenchymal changes and subcentimeter pulmonary nodules are similar to previous. 6. Liquid stool is seen throughout the colon. Correlate clinically for evidence of a diarrheal illness. 7. Cholelithiasis. 8. Hepatic steatosis. 9. Additional findings as above. ACT 112: Negative or not required by law. Electronically signed by: Dillan Denis M.D. 04/12/2021 6:43 PM Chest CTA 04/12/21 15:08 CT ANGIOGRAM OF THE CHEST; CT SCAN OF THE ABDOMEN AND PELVIS WITH IV CONTRAST CLINICAL HISTORY: Atypical chest pain. Back pain. Vomiting. Hypoxia. Generalized abdominal pain. Diarrhea. COMPARISON STUDY: CT scan of the chest, abdomen, and pelvis dated 08/29/2019. TECHNIQUE: Following the IV administration of 104 of Optiray 320, CT angiogram of the chest is performed from the upper abdomen to the thoracic inlet utilizing the pulmonary embolus protocol. Images are reviewed in the axial, sagittal, coronal planes. 3-D MIPS images are created and assessed. Subsequently, CT scan of the abdomen and pelvis was performed from the lung bases to the proximal femora. Images are reviewed in the axial, sagittal, and coronal planes. IV contrast was administered without complication. A dose lowering technique was utilized adhering to the principles of ALARA. The examination is significantly degraded by large body habitus, and streak artifact from the body wall abutting the CT gantry. There is also extensive metallic streak artifact from spinal rods, as well as streak artifact from the arms which could not be elevated above the chest or abdomen. There is also motion artifact. FINDINGS: CHEST: Thyroid: Imaged portions of the thyroid gland are normal in size and attenuation. Thoracic aorta: There is atherosclerotic calcification of the thoracic aorta, which is normal in caliber and demonstrates standard 3-vessel arch anatomy. No dissection is seen. Pulmonary vasculature: The pulmonary trunk is normal in caliber. There are no filling defects identified in the main, lobar, or proximal segmental pulmonary arteries to indicate pulmonary embolus. Evaluation of the segmental and subsegme ntal branches is degraded by motion artifact. Heart: The heart is enlarged and without pericardial effusion. The coronary arteries are densely calcified. Lungs and pleural spaces: Evaluation of the lung parenchyma is degraded by motion artifact. There are small pleural effusions with dependent atelectasis. No airspace consolidation is seen typical for pneumonia. Linear atelectasis/scarring is seen in the right upper lobe lung the major fissure. Secretions are noted within the trachea and right mainstem bronchus. There is diffuse peribronchial thickening. A 3 mm right upper lobe pulmonary nodule on image #167 is unchanged, as is a 5 mm right middle lobe pulmonary nodule seen on image #112. Mediastinum: There is no mediastinal lymphadenopathy. Nyla: Mildly enlarged hilar nodes measure up to 13 mm in short axis. Axillae: There is no axillary lymphadenopathy. Bony thorax: The skeletal structures are osteopenic. Arthritic change is noted in the shoulders. Degenerative changes seen throughout the thoracic spine with extensive postoperative change with multilevel laminectomy and posterior fusion. This extends from the upper thoracic spine and lumbar spine. The orthopedic hardware appears intact. No lytic or blastic lesions are identified. There are chronic/healed bilateral rib fractures. ABDOMEN AND PELVIS: Liver: The contrast-enhanced liver is mildly enlarged and demonstrates diffusely diminished attenuation consistent with hepatic steatosis. There is no intra hepatic or ductal dilatation. The hepatic veins and portal veins are patent. Gallbladder: There are calcified gallstones with no CT evidence of acute cholecystitis. Spleen: Normal in size and attenuation. Pancreas: Moderately atrophic and grossly unremarkable. Adrenal glands: Unremarkable. Kidneys: The contrast enhanced kidneys demonstrate cortical atrophy and are wit hout hydronephrosis. The kidneys enhance symmetrically. Foci of cortical scarring are seen throughout the left kidney. Abdominal vasculature: The abdominal aorta is normal in course and caliber noting advanced atherosclerotic calcification. Stomach and bowel: There is a small hiatal hernia. There is moderate diverticulosis of the left colon without CT evidence of acute diverticulitis. No bowel obstruction is seen. Liquid stool seen throughout the colon. Tiny duodenal diverticula are noted. The appendix is not visualized. Peritoneum: There is no intraperitoneal free air or abdominal ascites. Lymphadenopathy: None. Pelvic viscera: The prostate gland is diminutive and heterogeneous. The bladder is distended but otherwise normal in appearance. Skeletal structures: The skeletal structures are osteopenic. There is chronic posttraumatic deformity of the L2 vertebral body. Spondylotic and postoperative change is noted in the lumbar spine. No lytic or blastic lesions are seen. IMPRESSION: 1. Significantly streak and motion degraded examinations. 2. There is no evidence of pulmonary embolus in the main, lobar, or proximal segmental pulmonary arteries. 3. Cardiomegaly and trace pleural effusions. 4. There is no airspace consolidation typical for pneumonia. 5. Chronic pulmonary parenchymal changes and subcentimeter pulmonary nodules are similar to previous. 6. Liquid stool is seen throughout the colon. Correlate clinically for evidence of a diarrheal illness. 7. Cholelithiasis. 8. Hepatic steatosis. 9. Additional findings as above. ACT 112: Negative or not required by law. Electronically signed by: Dillan Denis M.D. 04/12/2021 6:[address] 04/12/21 15:28 CT SCAN OF THE LUMBAR SPINE WITH IV CONTRAST CLINICAL HISTORY: Chronic low back pain. COMPARISON STUDY: MRI of the lumbar spine dated 10/16/2019. CT of the lumbar spine dated 10/12/2019. TECHNIQUE: Following the IV administration of 104 mL of Optiray 320, CT scan of the lumbar spine is performed from the lower thoracic spine to the sacrum. Images are reviewed in the axial, sagittal, and coronal planes. IV contrast was administered without complication. A dose lowering technique was utilized adhering to the principles of ALARA. There is significant streak artifact from metallic spinal hardware. The examination is also degraded by large body habitus, and by streak artifact from the body wall abutting the CT gantry. CT DOSE: 3072.17 mGy.cm FINDINGS: The skeletal structures are osteopenic. There is no evidence of acute fracture or malalignment involving the lumbar spine. There is chronic p osttraumatic deformity of the L2 vertebral body with mild loss of height. Vertebral body height is otherwise maintained throughout the lumbar spine. Alignment is preserved. There is postoperative change from laminectomy and posterior fusion at the thoracolumbar junction. Intrapedicular screws are pr esent within the visualized T11, T12, and L1 vertebral bodies. The orthopedic hardware appears intact. Anterior and lateral marginal osteophytes are seen throughout. The transverse and spinous processes appear intact. There is moderate disc space narrowing at L4-L5. Mild disc space narrowing is seen at the remaining lumbar levels. There is no CT evidence of high-grade central canal stenosis throughout the lumbar region. Small posterior disc osteophyte complexes are noted at most lumbar levels. Facet arthropathy is seen in the lower lumbar spine. The visualized sacrum and bony pelvis appear intact. There is fatty atrophy of the paraspinous musculature. Advanced atherosclerotic calcification i s noted in the abdominal aorta. No retroperitoneal lymphadenopathy is identified. IMPRESSION: 1. No acute bony abnormality is seen involving the lumbar spine. 2. Osteopenia with chronic posttraumatic, degenerative, and postoperative changes as above. ACT 112: Negative or not required by law. Dictated: 04/12/2021 5:26 PM Transcribed: 04/12/2021 6:17 PM Michelle [id number] [email or web address] Electronically signed by: Dillan Denis M.D. 04/12/2021 6:44 PM Discharge Plan Visit Data Chief Complaint: Illness Stated Complaint: ILLNESS ED Provider: Bala Tabares Discharge Problem: Low back pain, Nausea & vomiting, Diarrhea, Hypoxia Patient Disposition: Being Evaluated by Hospitalist Forms Stand Alone Forms: My [facility] Prescriptions Prescriptions: No Action cetirizine 10 mg Tablet 10 mg PO HS RF: 0 finasteride 5 mg Tablet 5 mg PO QDL RF: 0 escitalopram oxalate [Lexapro] 10 mg Tablet 10 mg PO QAM RF: 0 levetiracetam 750 mg tablet 750 mg PO Q12H RF: 0 metoprolol succinate 25 mg tablet extended release 24 hr 50 mg PO QAM RF: 0 oxycodone-acetaminophen [Percocet] 5-325 mg Tablet 2 tab PO Q4H PRN (Reason: pain) Qty: 20 RF: 0 lactulose 20 gram/30 mL Solution 20 gm PO TID PRN (Reason: constipation) Qty: 600 RF: 0 lidocaine 5 % Adhesive Patch,Medicated 1 patch transdermal QAM Qty: 30 RF: 0 furosemide 40 mg tablet 40 mg PO QAM RF: 0 atorvastatin 40 mg tablet 40 mg PO HS RF: 0 glipizide 10 mg Tablet 10 mg PO BIDM RF: 0 levothyroxine 25 mcg tablet 25 mcg PO DAILYBB RF: 0 metformin 1,000 mg tablet 1,000 mg PO BID RF: 0 folic acid 1 mg Tablet 1 mg PO QAM RF: 0 aspirin 325 mg Tablet 325 mg PO QAM RF: 0 ascorbic acid (vitamin C) 500 mg Tablet 500 mg PO BID RF: 0 acetaminophen 325 mg Tablet 650 mg PO Q4H MDD 10 TABLETS/DAILY PRN (Reason: Fever Or Pain) RF: 0 famotidine 20 mg Tablet 20 mg PO BIDM RF: 0 mupirocin 2 % Ointment 1 applic TOPICAL DAILY PRN (Reason: Skin Irritation) RF: 0 Guaifenesin DM 15-100 mg/5 mL Syrup 10 ml PO Q4H PRN (Reason: Cough) RF: 0 sennosides-docusate sodium [Senokot-S] 8.6-50 mg tablet 1 tab PO HS RF: 0 bisacodyl 10 mg Suppository 10 mg RI DAILY PRN (Reason: Constipation) RF: 0 benzonatate 100 mg Capsule 200 mg PO TID RF: 0 cyanocobalamin (vitamin B-12) 500 mcg Tablet 500 mcg PO DAILY RF: 0 semaglutide 1 mg/dose (4 mg/3 mL) Pen Injector 1 mg SUBCUT WK RF: 0 albuterol sulfate 2.5 mg /3 mL (0.083 %) Solution For Nebulization 2.5 mg INHALATION Q4H PRN (Reason: Shortness Of Breath Or Wheezing) RF: 0 potassium chloride 20 mEq Tablet Extended Release 10 meq PO DAILY RF: 0 multivitamin [Multiple Vitamin] Tablet 1 tab PO DAILY RF: 0 metoprolol succinate 50 mg Tablet Extended Release 24 Hr 25 mg PO DAILY RF: 0 Referrals Referrals: Raysa Hobbs M.D. [Primary Care Provider] - Discharge Problem: Low back pain Qualifiers: Chronicity: acute Back pain laterality: midline Sciatica presence: without sciatica Qualified Code(s): M54.50 - Low back pain, unspecified Nausea & vomiting Qualifiers: Vomiting type: unspecified Qualified Code(s): R11.2 - Nausea with vomiting, unspecified Diarrhea Qualifiers: Diarrhea type: unspecified type Qualified Code(s): R19.7 - Diarrhea, unspecified
[2021-04-12 14:57] LABS: Basophils # (auto) 0.02 K/uL (0-0.2); Basophils % (auto) 0.2 %; Eosinophils # (auto) 0.18 K/uL (0-0.5); Eosinophils % (auto) 1.6 %; Hematocrit (blood only) 34.7 % (42-52); Hemoglobin 10.8 g/dL (14.0-18.0); Immature Granulocytes # (auto) 0.03 K/uL (0.00-0.02); Immature Granulocytes % (auto) 0.3 %; Lymphocytes # (auto) 1.88 K/uL (1.2-3.4); Lymphocytes % (auto) 16.9 %; Mean Corpuscular Hemoglobin 27.6 pg (25-34); Mean Corpuscular Hgb Conc 31.1 g/dL (32-36); Mean Corpuscular Volume 88.5 fL (80-100); Mean Platelet Volume 9.6 fL (7.4-10.4); Monocytes # (auto) 0.54 K/uL (0.11-0.59); Monocytes % (auto) 4.9 %; Neutrophils # (auto) 8.47 K/uL (1.4-6.5); Neutrophils % (auto) 76.1 %; Platelet Count 385 K/uL (130-400); RDW Coefficient of Variation 16.1 % (11.5-14.5); RDW Standard Deviation 52.1 fL (36.4-46.3); Red Blood Count 3.92 M/uL (4.7-6.1); White Blood Count 11.12 K/uL (4.8-10.8)
[2021-04-12 15:19] LABS: Alanine Aminotransferase 44 U/L (7-52); Albumin Globulin Ratio 0.9 (0.9-2); Albumin Level 3.8 gm/dl (3.4-5.0); Alkaline Phosphatase 97 U/L (34-104); Anion Gap 9 (3-11); Aspartate Aminotransferase 41 U/L (13-39); BUN Creatinine Ratio 12.6 (10-20); Bilirubin,Total 0.5 mg/dl (0.2-1.0); Blood Urea Nitrogen 15 mg/dl (6-23); Calcium 9.2 mg/dl (8.5-10.1); Carbon Dioxide 28 mmol/L (21-32); Chloride 95 mmol/L (98-107); Creatinine Clr Calc Pharmacy 79.4 ml/min; Est GFR (African American) 69.8 ml/min; Est GFR (Non-African American) 60.2 ml/min; Globulin 4.1 gm/dl (2.5-4.0); Glucose 127 mg/dl (70-99(Fasting)); Lipase 11 U/L (11-82); Potassium 4.7 mmol/L (3.5-5.1); Sodium 132 mmol/L (136-145); Total Protein 7.9 gm/dl (6.0-8.3); Troponin I < 0.03 ng/ml (0-0.04)
[2021-04-12] MEDS ORDERED: OPTIRAY 320 125ml IV ONE (17:09)
--- NOTE | 2021-04-12 18:45 | CT Scan Report ---
CT ANGIOGRAM OF THE CHEST; CT SCAN OF THE ABDOMEN AND PELVIS WITH IV CONTRAST CLINICAL HISTORY: Atypical chest pain. Back pain. Vomiting. Hypoxia. Generalized abdominal pain. Diar warren. COMPARISON STUDY: CT scan of the chest, abdomen, and pelvis dated 08/29/2019. TECHNIQUE: Following the IV administration of 104 of Optiray 320, CT angiogram of the chest is perfor med from the upper abdomen to the thoracic inlet utilizing the pulmonary embolus protocol. Images are reviewed in the axial, sagittal, coronal planes. 3-D MIPS images are created and assessed. Subsequen tly, CT scan of the abdomen and pelvis was performed from the lung bases to the proximal femora. Imag es are reviewed in the axial, sagittal, and coronal planes. IV contrast was administered without comp lication. A dose lowering technique was utilized adhering to the principles of ALARA. The examination is significantly degraded by large body habitus, and streak artifact from the body wall abutting the CT gantry. There is also extensive metallic streak artifact from spinal rods, as well as streak keara fact from the arms which could not be elevated above the chest or abdomen. There is also motion artif act. FINDINGS: CHEST: Thyroid: Imaged portions of the thyroid gland are normal in size and attenuation. Thoracic aorta: There is atherosclerotic calcification of the thoracic aorta, which is normal in fidel romulo and demonstrates standard 3-vessel arch anatomy. No dissection is seen. Pulmonary vasculature: The pulmonary trunk is normal in caliber. There are no filling defects identif ied in the main, lobar, or proximal segmental pulmonary arteries to indicate pulmonary embolus. Evalu ation of the segmental and subsegmental branches is degraded by motion artifact. Heart: The heart is enlarged and without pericardial effusion. The coronary arteries are densely calc ified. Lungs and pleural spaces: Evaluation of the lung parenchyma is degraded by motion artifact. There are small pleural effusions with dependent atelectasis. No airspace consolidation is seen typical for pn eumonia. Linear atelectasis/scarring is seen in the right upper lobe lung the major fissure. Secretio ns are noted within the trachea and right mainstem bronchus. There is diffuse peribronchial thickenin g. A 3 mm right upper lobe pulmonary nodule on image #167 is unchanged, as is a 5 mm right middle lob e pulmonary nodule seen on image #112. Mediastinum: There is no mediastinal lymphadenopathy. Nyla: Mildly enlarged hilar nodes measure up to 13 mm in short axis. Axillae: There is no axillary lymphadenopathy. Bony thorax: The skeletal structures are osteopenic. Arthritic change is noted in the shoulders. Dege nerative changes seen throughout the thoracic spine with extensive postoperative change with multilev el laminectomy and posterior fusion. This extends from the upper thoracic spine and lumbar spine. The orthopedic hardware appears intact. No lytic or blastic lesions are identified. There are chronic/he aled bilateral rib fractures. ABDOMEN AND PELVIS: Liver: The contrast-enhanced liver is mildly enlarged and demonstrates diffusely diminished attenuati on consistent with hepatic steatosis. There is no intrahepatic or ductal dilatation. The hepatic vein s and portal veins are patent. Gallbladder: There are calcified gallstones with no CT evidence of acute cholecystitis. Spleen: Normal in size and attenuation. Pancreas: Moderately atrophic and grossly unremarkable. Adrenal glands: Unremarkable. Kidneys: The contrast enhanced kidneys demonstrate cortical atrophy and are without hydronephrosis. T he kidneys enhance symmetrically. Foci of cortical scarring are seen throughout the left kidney. Abdominal vasculature: The abdominal aorta is normal in course and caliber noting advanced atheroscle rotic calcification. Stomach and bowel: There is a small hiatal hernia. There is moderate diverticulosis of the left colon without CT evidence of acute diverticulitis. No bowel obstruction is seen. Liquid stool seen through out the colon. Tiny duodenal diverticula are noted. The appendix is not visualized. Peritoneum: There is no intraperitoneal free air or abdominal ascites. Lymphadenopathy: None. Pelvic viscera: The prostate gland is diminutive and heterogeneous. The bladder is distended but othe rwise normal in appearance. Skeletal structures: The skeletal structures are osteopenic. There is chronic posttraumatic deformity of the L2 vertebral body. Spondylotic and postoperative change is noted in the lumbar spine. No lyti c or blastic lesions are seen. IMPRESSION: 1. Significantly streak and motion degraded examinations. 2. There is no evidence of pulmonary embolus in the main, lobar, or proximal segmental pulmonary marely rhonda. 3. Cardiomegaly and trace pleural effusions. 4. There is no airspace consolidation typical for pneumonia. 5. Chronic pulmonary parenchymal changes and subcentimeter pulmonary nodules are similar to previous. 6. Liquid stool is seen throughout the colon. Correlate clinically for evidence of a diarrheal illnes s. 7. Cholelithiasis. 8. Hepatic steatosis. 9. Additional findings as above. ACT 112: Negative or not required by law. Electronically signed by: Dillan Denis M.D. 04/12/2021 6:43 PM
--- NOTE | 2021-04-12 18:45 | CT Scan Report ---
CT SCAN OF THE LUMBAR SPINE WITH IV CONTRAST CLINICAL HISTORY: Chronic low back pain. COMPARISON STUDY: MRI of the lumbar spine dated 10/16/2019. CT of the lumbar spine dated 10/12/2019. TECHNIQUE: Following the IV administration of 104 mL of Optiray 320, CT scan of the lumbar spine is p erformed from the lower thoracic spine to the sacrum. Images are reviewed in the axial, sagittal, and coronal planes. IV contrast was administered without complication. A dose lowering technique was uti lized adhering to the principles of ALARA. There is significant streak artifact from metallic spinal hardware. The examination is also degraded by large body habitus, and by streak artifact from the bod y wall abutting the CT gantry. CT DOSE: 3072.17 mGy.cm FINDINGS: The skeletal structures are osteopenic. There is no evidence of acute fracture or malalignm ent involving the lumbar spine. There is chronic posttraumatic deformity of the L2 vertebral body wit h mild loss of height. Vertebral body height is otherwise maintained throughout the lumbar spine. Ali gnment is preserved. There is postoperative change from laminectomy and posterior fusion at the thora columbar junction. Intrapedicular screws are present within the visualized T11, T12, and L1 vertebral bodies. The orthopedic hardware appears intact. Anterior and lateral marginal osteophytes are seen t hroughout. The transverse and spinous processes appear intact. There is moderate disc space narrowing at L4-L5. Mild disc space narrowing is seen at the remaining lumbar levels. There is no CT evidence of high-grade central canal stenosis throughout the lumbar region. Small posterior disc osteophyte co mplexes are noted at most lumbar levels. Facet arthropathy is seen in the lower lumbar spine. The vis ualized sacrum and bony pelvis appear intact. There is fatty atrophy of the paraspinous musculature. Advanced atherosclerotic calcification is noted in the abdominal aorta. No retroperitoneal lymphadeno brad is identified. IMPRESSION: 1. No acute bony abnormality is seen involving the lumbar spine. 2. Osteopenia with chronic posttraumatic, degenerative, and postoperative changes as above. ACT 112: Negative or not required by law. Dictated: 04/12/2021 5:26 PM Transcribed: 04/12/2021 6:17 PM Michelle [id number] [email or web address] Electronically signed by: Dillan Denis M.D. 04/12/2021 6:44 PM
[2021-04-12] MEDS ORDERED: KETOROLAC TROMETHAMINE 15 MG/ML VIAL IV ONE (18:52)
[2021-04-12] MEDS ORDERED: LACTATED RINGER'S 1,000 ML IV SCH (19:00)
[2021-04-12] MEDS ORDERED: levETIRAcetam 750 MG in 0.9 % SODIUM CHLORIDE 100 ML IV SCH (21:00)
[2021-04-12] MEDS ORDERED: LEVOTHYROXINE SODIUM 25 MCG TABLET PO SCH (22:44)
[2021-04-12] MEDS ORDERED: ONDANSETRON INJ 2 MG/ML 2 ML VIAL IV PRN (22:44)
[2021-04-12] MEDS ORDERED: bisacodyL 10 MG SUPP PR PRN (22:44)
[2021-04-12] MEDS ORDERED: DEXTROMETHORPHAN GUAIFENESIN PO PRN (22:44)
[2021-04-12] MEDS ORDERED: ALBUTEROL 0.083% NEBU SOLN 3 ML VIAL INH PRN (22:44)
[2021-04-12] MEDS ORDERED: MUPIROCIN 2% OINT 22 GM TUBE TOP PRN (23:19)
[2021-04-12] MEDS ORDERED: DEXTROMETHORPHAN POLYMR COMPLX 30MG/5 ML PO PRN (23:29)
[2021-04-12] MEDS: LACTATED RINGER'S 1,000 ML IV SCH (23:37)
[2021-04-12] MEDS: INSULIN ASPART PER UNIT SC SCH (23:39)
[2021-04-12] MEDS: ENOXAPARIN INJ 40 MG/0.4 ML SYR SQ SCH (23:55)
[2021-04-13] MEDS: MELATONIN 3 MG TAB PO PRN ×2 (00:15→21:41)
--- NOTE | 2021-04-13 00:27 | History and Physical Report ---
DATE OF ADMISSION: 04/12/2021 CHIEF COMPLAINT: Nausea, vomiting, diarrhea. HISTORY OF PRESENT ILLNESS: This is a 75-year-old male with past medical history significant for type 2 diabetes, hyperlipidemia, CAD, obesity, history of occipital cerebral infarction, completely blind, history of focal seizures, currently not on any medications, history of status post carotid endarterectomy, who presents with nausea, vomiting, diarrhea. As per the , the patient was not feeling well yesterday. Today, he has a lot of nausea, vomiting and diarrhea, several episodes of diarrhea, watery stools. Stools are somewhat black, but he takes iron pills, he is not getting better, he was brought to the hospital. There was no fever or chills. He has some cough. In the ER, was short of breath and requiring 2 liters oxygen, but CT of the chest was showing no PE and no infiltrates. The patient is COVID vaccinated. Received booster in February 2021. Denies any chest pain, no headache, no runny nose, no sore throat. Otherwise, he can eat and swallow okay. Ambulates with walker with help. Not returned very much urine today, he has some mild swelling in the legs. says the cough is chronic. ALLERGIES: TRAMADOL, ALLOPURINOL, LISINOPRIL. PAST MEDICAL HISTORY: As mentioned above. PAST SURGICAL HISTORY: Left heart catheterization, knee arthroscopy, cataract surgery. MEDICATIONS: The patient is on albuterol 2.5 mg inhalation q.4 hours p.r.n., ascorbic acid 500 mg p.o. b.i.d., atorvastatin 40 mg p.o. at bedtime, benzonatate 200 mg p.o. t.i.d., Bisacodyl 10 mg per rectal daily p.r.n., cetirizine 10 mg p.o. daily, vitamin B12 500 mcg p.o. daily, guaifenesin, DM 10 mL p.o. q. 4 hours p.r.n., Lexapro 10 mg p.o. a.m., famotidine 20 mg p.o. b.i.d., finasteride 5 mg p.o. daily, folic acid 1 mg p.o. a.m., [id number] mg p.o. daily, Lantus 15 units subcutaneous daily, insulin sliding scale, levothyroxine 25 mcg p.o. daily, lidocaine patch transdermal a.m., metformin 1000 mg p.o. b.i.d., metoprolol succinate 25 mg p.o. daily, multivitamins 1 tablet p.o. daily, mupirocin topical daily p.r.n., potassium chloride 10 mEq daily, semaglutide 1 mg subcutaneous weekly, Senokot-S 1 tablet p.o. at bedtime. FAMILY HISTORY: Significant for sister has gastrointestinal disorder; father has MN, stroke; mother has pulmonary embolism. SOCIAL HISTORY: , former smoker, quit in 1978 after 20 years. No alcohol use. No drug use. REVIEW OF SYSTEMS: As per HPI. Rest of the review of systems is negative. PHYSICAL EXAMINATION: GENERAL: The patient is obese, not in acute distress. VITAL SIGNS: Temperature 36.6, pulse 87, respirations 17, blood pressure 139/76 Oxygen 99% on 2 liters, was 86% on room air. HEENT: Atraumatic. No facial droop. Oral mucosa moist. NECK: No JVD or neck masses. CARDIOVASCULAR: S1 and S2 heard. Regular rate and rhythm. No murmur, no gallop. RESPIRATORY SYSTEM: Normal AP diameter. No accessory muscle use. No wheezing, no crackles. ABDOMEN: Soft, bowel sounds present, nontender, no distention. CENTRAL NERVOUS SYSTEM: Alert and oriented. Bilateral blindness. No facial droop. Speech is clear. Obeys commands. Insight is okay. Moves extremities. EXTREMITIES: Mild edema, no erythema seen. LABORATORY DATA: WBC 11.1, hemoglobin 10.8, hematocrit 34.7, platelets 385. Sodium 132, potassium 4.7, chloride 95, bicarbonate 28, BUN 15, creatinine 1.1, serum glucose 127, calcium 9.2, total bilirubin 0.5, AST 41, ALT 44, alkaline phosphatase 97. Troponin I less than 0.03. Lipase 11. SARS-CoV-2 RNA negative. IMAGING DATA: Lumbar spine CT: No acute findings seen. Osteopenia with chronic posttraumatic degenerative postoperative changes. CT of the chest, no PE, no infiltrates. CT of abdomen and pelvis, liquid stool seen throughout the colon, cholelithiasis. Hepatic steatosis. EKG: Normal sinus rhythm at a rate of 92. Inferior infarct, age indeterminate. Nonspecific ST changes. ASSESSMENT AND PLAN: This is a 75-year-old male who presents with nausea, vomiting and diarrhea. 1. Nausea, vomiting, diarrhea, possibly gastroenteritis: We will follow the stool cultures and stool for C. diff and IV fluids. We will place on clear liquid diet and monitor in the hospital. 2. History of cerebrovascular accident, blind in both eyes . On statin 3. History of diabetes: Continue his home Lantus. We will place on sliding scale. Hold p.o. medications. 4. Hyperthyroidism: Continue Synthroid. 5. Depression. Continue with Lexapro. 6. Hyperlipidemia: Continue statin. 7. Obesity: Needs counseling. 8. Hypoxia.?Requiring 2 lts oxygen. May need sleep study. Nocturnal pulse ox study while in hospital.CTA chest was ok.Monitor. 9. Deep venous thrombosis prophylaxis: Lovenox. DISPOSITION: To be determined. Job ID: [id number] MTDD
[2021-04-13] MEDS: LEVOTHYROXINE SODIUM 25 MCG TABLET PO SCH (05:27)
[2021-04-13 06:13] LABS: Appearance Urine Clear (Clear); Bacteria Urine Automated Negative (Negative); Bilirubin Urine Negative (Negative); Blood Urine Negative (Negative); Cast Urine Automated 0 /lpf (0-5); Color Urine Dark Yellow; Glucose Urine UA Negative (Negative); Ketones Urine Negative (Negative); Leukocyte Esterase Urine Negative (Negative); Nitrite Urine Negative (Negative); Protein Urine 1+ (Negative); RBC Urine Automated 0-4 /hpf (0-4); Specific Gravity Urine > 1.045 (1.000-1.030); Urobilinogen Urine Negative (Negative)
[2021-04-13 06:49] LABS: Basophils # (auto) 0.01 K/uL (0-0.2); Basophils % (auto) 0.1 %; Eosinophils # (auto) 0.27 K/uL (0-0.5); Eosinophils % (auto) 3.9 %; Hematocrit (blood only) 32.1 % (42-52); Hemoglobin 9.8 g/dL (14.0-18.0); Immature Granulocytes # (auto) 0.02 K/uL (0.00-0.02); Immature Granulocytes % (auto) 0.3 %; Lymphocytes # (auto) 1.84 K/uL (1.2-3.4); Lymphocytes % (auto) 26.4 %; Mean Corpuscular Hemoglobin 27.4 pg (25-34); Mean Corpuscular Hgb Conc 30.5 g/dL (32-36); Mean Corpuscular Volume 89.7 fL (80-100); Mean Platelet Volume 9.8 fL (7.4-10.4); Monocytes # (auto) 0.44 K/uL (0.11-0.59); Monocytes % (auto) 6.3 %; Platelet Count 346 K/uL (130-400); RDW Coefficient of Variation 16.1 % (11.5-14.5); RDW Standard Deviation 53.1 fL (36.4-46.3); Red Blood Count 3.58 M/uL (4.7-6.1); White Blood Count 6.98 K/uL (4.8-10.8)
[2021-04-13 07:15] LABS: BUN Creatinine Ratio 13.1 (10-20); Calcium 8.4 mg/dl (8.5-10.1); Creatinine Clr Calc Pharmacy 74.1 ml/min; Est GFR (African American) 67.7 ml/min; Est GFR (Non-African American) 58.5 ml/min; Magnesium 1.9 mg/dl (1.7-2.4); Potassium 4.4 mmol/L (3.5-5.1)
[2021-04-13] MEDS: LACTATED RINGER'S 1,000 ML IV SCH ×3 (07:24→23:36)
--- NOTE | 2021-04-13 07:31 | Electrocardiogram Report ---
Test Reason : Blood Pressure : / mmHG Vent. Rate : 092 BPM Atrial Rate : 092 BPM P-R Int : 162 ms QRS Dur : 106 ms QT Int : 376 ms P-R-T Axes : 061 -19 001 degrees QTc Int : 464 ms Poor data quality, interpretation may be adversely affected Normal sinus rhythm possible Inferior infarct , age undetermined Anteroseptal infarct (cited on or before 12-APR-2021) Abnormal ECG When compared with ECG of 21-SEP-2019 06:28, Non-specific change in ST segment in Inferior leads Nonspecific T wave abnormality, worse in Inferior leads Confirmed by Robert Garcia ([id number]) on 04/13/2021 7:30:51 AM Referred By: REFERRED SELF Confirmed By:James Garcia
[2021-04-13] MEDS: FUROSEMIDE 20 MG TAB PO SCH (08:25)
[2021-04-13] MEDS: FOLIC ACID 1 MG TAB PO SCH (08:25)
[2021-04-13] MEDS: ASCORBIC ACID 500 MG TAB PO SCH ×2 (08:25→21:44)
[2021-04-13] MEDS: FAMOTIDINE 20 MG TAB PO SCH ×2 (08:25→17:45)
[2021-04-13] MEDS: CYANOCOBALAMIN 500 MCG TABLET (VITAMIN B-12) PO SCH (08:25)
[2021-04-13] MEDS: POTASSIUM CHLORIDE 10 MEQ TABCR PO SCH (08:26)
[2021-04-13] MEDS: MULTIVITAMIN TAB PO SCH (08:26)
[2021-04-13] MEDS: METOPROLOL SUCC 25MG EXT REL TAB PO SCH (08:26)
[2021-04-13] MEDS: ENOXAPARIN INJ 40 MG/0.4 ML SYR SQ SCH ×2 (08:26→21:41)
[2021-04-13] MEDS: ESCITALOPRAM OXALATE 10 MG TAB PO SCH (08:26)
[2021-04-13] MEDS: CETIRIZINE HCL 10 MG TABLET PO SCH (08:26)
[2021-04-13] MEDS: BENZONATATE 100 MG CAPSULE PO SCH ×3 (08:26→21:42)
[2021-04-13] MEDS: LIDOCAINE 5% 1 PATCH TD SCH (08:27)
[2021-04-13] MEDS: INSULIN ASPART PER UNIT SC SCH ×4 (08:52→21:35)
[2021-04-13] MEDS: INSULIN GLARGINE SOLOSTAR 100 UNITS/ML 3 ML PEN SQ SCH (08:59)
[2021-04-13] MEDS: FINASTERIDE 5 MG TAB PO SCH (12:50)
--- NOTE | 2021-04-13 14:12 | Hospitalist Progress Note ---
Date of Service April 13, 2021 Assessment & Plan (1) Nausea vomiting and diarrhea: Plan: Presented with nausea,vomiting,diarrhea and weakness Could be secondary to gastroenteritis Has been feeling much better since admission Stool test pending Will continue symptomatic treatment Generalized weakness With history of fall We will get PT and OT evaluation (2) CVA (cerebrovascular accident): Plan: History of stroke and has complete blindness No acute symptoms from stroke (3) Diabetes mellitus, type II: Plan: Has been on SSI And ACH his blood sugar checkup (4) Hypothyroidism: Plan: Continue replacement (5) CAD (coronary artery disease): Plan: No acute symptoms (6) HLD (hyperlipidemia): Plan: Continue statin Admission and Anticipated Discharge Date Admission Date: April 12, 2021 Subjective 04/13/2021 The patient was seen and examined in medical floor He has been feeling fine since admission Denies any abdominal pain, distention, nausea and/or vomiting and or diarrhea No fever ,chills or rigors Review of Systems Review of Systems: All systems reviewed and are unremarkable except as noted below Physical Exam Physical Exam: Lying in bed comfortably Constitutional: well developed, well nourished and + obese; not ill appearing Eyes: PERRL, conjunctivae normal, anicteric sclerae ENMT: external ear and nose normal, oropharynx normal Neck: trachea midline, no thyromegaly Respiratory: no respiratory distress Auscultation: lungs clear to auscultation bilaterally and + diminished lung sounds Cardiovascular: Rate/Rhythm: regular rate and regular rhythm Heart Sounds: normal S1 and normal S2; no murmur Extremities: + edema (1+ edema bilaterally) Gastrointestinal (Abdomen): Inspection/Auscultation: + abdomen distended and normal bowel sounds Percussion/Palpation: abdomen soft; abdomen nontender Musculoskeletal: No acute arthritis in any joint Neurologic: Alert, awake and oriented x3. No focal sensory or motor deficit appreciated Results & Data Results & Data ([facility]) Vital Signs (Past 12 Hours) Vital Signs Temp Pulse Resp BP Pulse Ox 04/13/21 07:40 36.6 C 87 18 125/76 100 Laboratory Results Short CBC 04/12/21 04/13/21 Range/Units 14:37 05:22 WBC 11.12 H 6.98 (4.8-10.8) K/uL Hgb 10.8 L 9.8 L (14.0-18.0) g/dL Hct 34.7 L 32.1 L (42-52) % Plt Count 385 346 (130-400) K/uL BMP 04/12/21 04/13/21 14:37 05:22 Sodium 132 L 132 L Potassium 4.7 4.4 Chloride 95 L 101 Carbon Dioxide 28 29 BUN 15 16 Creatinine 1.19 1.22 Glucose 127 H 84 Calcium 9.2 8.4 L Cardiac Enzymes 04/12/21 Range/Units 14:37 Troponin I < 0.03 (0-0.04) ng/ml Liver Function 04/12/21 Range/Units 14:37 Total Bilirubin 0.5 (0.2-1.0) mg/dl AST 41 H (13-39) U/L ALT 44 (7-52) U/L Alkaline Phosphatase 97 (34-104) U/L Albumin 3.8 (3.4-5.0) gm/dl Urine 04/13/21 Range/Units 05:20 Urine Color Dark Yellow Urine Appearance Clear (Clear) Urine pH 5.0 (4.5-7.5) Ur Specific [place] > 1.045 H (1.000-1.030) Urine Protein 1+ H (Negative) Urine Glucose (UA) Negative (Negative) Medications Administered Current Inpatient Medications Acetaminophen (Acetaminophen 325 Mg Tab) 650 mg PO Q4H PRN PRN Reason: pain/fever Stop: 05/12/21 22:43 Albuterol (Albuterol 0.083% Nebu Soln 3 Ml Vial) 2.5 mg INH Q4R PRN; Protocol PRN Reason: Shortness Of Breath Or Wheezing Stop: 05/12/21 22:43 Ascorbic Acid (Ascorbic Acid 500 Mg Tab) 500 mg PO BID [facility]AL Stop: 05/13/21 08:59 Last Admin: 04/13/21 08:25 Dose: 500 mg Documented by: Atorvastatin Calcium (Atorvastatin 40 Mg Tab) 40 mg PO HS [facility] Stop: 05/13/21 20:59 Benzonatate (Benzonatate 100 Mg Capsule) 200 mg PO TID [facility]AL Stop: 05/13/21 08:59 Last Admin: 04/13/21 12:53 Dose: Not Given Documented by: Bisacodyl (Bisacodyl 10 Mg Supp) 10 mg [place] DAILY PRN PRN Reason: Constipation Stop: 05/12/21 22:43 Cetirizine HCl (Cetirizine Hcl 10 Mg Tablet) 10 mg PO DAILY [facility] Stop: 05/13/21 08:59 Last Admin: 04/13/21 08:26 Dose: Not Given Documented by: Cyanocobalamin (Cyanocobalamin 500 Mcg Tablet (Vitamin B-12)) 500 mcg PO DAILY [facility] Stop: 05/13/21 08:59 Last Admin: 04/13/21 08:25 Dose: 500 mcg Documented by: Dextromethorphan Polymer Complex (Dextromethorphan Polymr Complx 30mg/5 Ml) 30 mg PO Q4H PRN PRN Reason: Cough Stop: 05/12/21 23:28 Enoxaparin Sodium (Enoxaparin Inj 40 Mg/0.4 Ml Syr) 40 mg SQ Q12 [facility] Stop: 05/12/21 23:14 Last Admin: 04/13/21 08:26 Dose: 40 mg Documented by: Escitalopram Oxalate (Escitalopram Oxalate 10 Mg Tab) 10 mg PO QAM [facility] Stop: 05/13/21 08:59 Last Admin: 04/13/21 08:26 Dose: 10 mg Documented by: Famotidine (Famotidine 20 Mg Tab) 20 mg PO BIDM [facility] Stop: 05/13/21 07:59 Last Admin: 04/13/21 08:25 Dose: 20 mg Documented by: Finasteride (Finasteride 5 Mg Tab) 5 mg PO QDL [facility] Stop: 05/13/21 11:29 Last Admin: 04/13/21 12:50 Dose: 5 mg Documented by: Folic Acid (Folic Acid 1 Mg Tab) 1 mg PO QAM [facility] Stop: 05/13/21 08:59 Last Admin: 04/13/21 08:25 Dose: 1 mg Documented by: Furosemide (Furosemide 20 Mg Tab) 30 mg PO DAILY [facility] Stop: 05/13/21 08:59 Last Admin: 04/13/21 08:25 Dose: 30 mg Documented by: Guaifenesin (Guaifenesin Sugar Free 200 Mg/10 Ml Udc) 200 mg PO Q4H PRN PRN Reason: Cough Stop: 05/12/21 23:29 Lactated Ringer's (Lr) 1,000 mls @ 125 mls/hr IV .Q8H [facility] Stop: 05/12/21 23:29 Last Admin: 04/13/21 07:24 Dose: 125 mls/hr Documented by: Insulin Aspart (Insulin Aspart Per Unit) 0 units SC ACHS [facility] Stop: 05/12/21 23:29 Last Admin: 04/13/21 12:50 Dose: 2 units Documented by: Insulin Glargine (Insulin Glargine Solostar 100 Units/Ml 3 Ml Pen) 15 units SQ DAILY [facility] Stop: 05/13/21 08:59 Last Admin: 04/13/21 08:59 Dose: 15 units Documented by: Levothyroxine Sodium (Levothyroxine Sodium 25 Mcg Tablet) 25 mcg PO DAILYBB [facility] Stop: 05/13/21 06:29 Last Admin: 04/13/21 05:27 Dose: 25 mcg Documented by: Lidocaine (Lidocaine 5% 1 Patch) 1 patch TD QAM [facility] Stop: 05/13/21 08:59 Last Admin: 04/13/21 08:27 Dose: Not Given Documented by: Melatonin (Melatonin 3 Mg Tab) 3 mg PO HS PRN PRN Reason: Sleep Stop: 05/12/21 23:55 Last Admin: 04/13/21 00:15 Dose: 3 mg Documented by: Metoprolol Succinate (Metoprolol Succ 25mg Ext Rel Tab) 25 mg PO DAILY [facility] Stop: 05/13/21 08:59 Last Admin: 04/13/21 08:26 Dose: 25 mg Documented by: Miscellaneous (Remove Lidoderm Patch) 1 ea N/A DAILY@2100 [facility] Stop: 05/13/21 20:59 Multivitamins (Multivitamin Tab) [facility] Stop: 05/13/21 08:59 Last Admin: 04/13/21 08:26 Dose: 1 tab Documented by: Mupirocin (Mupirocin 2% Oint 22 Gm Tube) 1 appln TOP DAILY PRN PRN Reason: Skin Irritation Stop: 05/12/21 23:18 Ondansetron HCl (Ondansetron Inj 2 Mg/Ml 2 Ml Vial) 4 mg IV Q6H PRN PRN Reason: Nausea Stop: 05/12/21 22:43 Potassium Chloride (Potassium Chloride 10 Meq Tabcr) 10 meq PO DAILY [facility] Stop: 05/13/21 08:59 Last Admin: 04/13/21 08:26 Dose: 10 meq Documented by: Senna/Docusate Sodium (Docusate Sodium/Senna 50/8.6mg Tab) 1 tab PO HS [facility] Stop: 05/13/21 20:59 (1) CVA (cerebrovascular accident) CVA mechanism: unspecified Qualified Code(s): I63.9 - Cerebral infarction, unspecified
[2021-04-13] MEDS: guaiFENesin SUGAR FREE 200 MG/10 ML UDC PO PRN ×2 (15:38→21:43)
[2021-04-13] MEDS: DOCUSATE SODIUM/SENNA 50/8.6MG TAB PO SCH (21:42)
[2021-04-13] MEDS: ATORVASTATIN 40 MG TAB PO SCH (21:43)
[2021-04-14] MEDS: LEVOTHYROXINE SODIUM 25 MCG TABLET PO SCH (05:33)
[2021-04-14 06:20] LABS: Basophils # (auto) 0.02 K/uL (0-0.2); Basophils % (auto) 0.3 %; Eosinophils # (auto) 0.19 K/uL (0-0.5); Eosinophils % (auto) 2.7 %; Hematocrit (blood only) 31.1 % (42-52); Hemoglobin 9.6 g/dL (14.0-18.0); Immature Granulocytes # (auto) 0.01 K/uL (0.00-0.02); Immature Granulocytes % (auto) 0.1 %; Lymphocytes # (auto) 2.05 K/uL (1.2-3.4); Lymphocytes % (auto) 28.8 %; Mean Corpuscular Hemoglobin 27.4 pg (25-34); Mean Corpuscular Hgb Conc 30.9 g/dL (32-36); Mean Corpuscular Volume 88.6 fL (80-100); Mean Platelet Volume 9.7 fL (7.4-10.4); Monocytes # (auto) 0.43 K/uL (0.11-0.59); Neutrophils # (auto) 4.43 K/uL (1.4-6.5); Neutrophils % (auto) 62.1 %; Platelet Count 328 K/uL (130-400); RDW Coefficient of Variation 15.9 % (11.5-14.5); RDW Standard Deviation 51.3 fL (36.4-46.3); Red Blood Count 3.51 M/uL (4.7-6.1); White Blood Count 7.13 K/uL (4.8-10.8)
[2021-04-14 06:40] LABS: BUN Creatinine Ratio 11.1 (10-20); Calcium 8.5 mg/dl (8.5-10.1); Creatinine Clr Calc Pharmacy 83.7 ml/min; Est GFR (African American) 78.5 ml/min; Est GFR (Non-African American) 67.7 ml/min; Magnesium 1.7 mg/dl (1.7-2.4); Phosphorus 3.5 mg/dl (2.5-4.9); Potassium 4.1 mmol/L (3.5-5.1)
[2021-04-14 07:40] LABS: Estimated Average Glucose 177 mg/dl; Hemoglobin A1C 7.8 % (4.5-5.6)
[2021-04-14] MEDS: LACTATED RINGER'S 1,000 ML IV SCH (07:45)
[2021-04-14] MEDS: ASCORBIC ACID 500 MG TAB PO SCH ×2 (08:20→20:09)
[2021-04-14] MEDS: CYANOCOBALAMIN 500 MCG TABLET (VITAMIN B-12) PO SCH (08:20)
[2021-04-14] MEDS: FAMOTIDINE 20 MG TAB PO SCH ×2 (08:20→17:36)
[2021-04-14] MEDS: CETIRIZINE HCL 10 MG TABLET PO SCH (08:20)
[2021-04-14] MEDS: LIDOCAINE 5% 1 PATCH TD SCH (08:20)
[2021-04-14] MEDS: BENZONATATE 100 MG CAPSULE PO SCH ×3 (08:20→20:08)
[2021-04-14] MEDS: FOLIC ACID 1 MG TAB PO SCH (08:20)
[2021-04-14] MEDS: FUROSEMIDE 20 MG TAB PO SCH (08:21)
[2021-04-14] MEDS: MULTIVITAMIN TAB PO SCH (08:21)
[2021-04-14] MEDS: METOPROLOL SUCC 25MG EXT REL TAB PO SCH (08:21)
[2021-04-14] MEDS: ESCITALOPRAM OXALATE 10 MG TAB PO SCH (08:21)
[2021-04-14] MEDS: POTASSIUM CHLORIDE 10 MEQ TABCR PO SCH (08:22)
[2021-04-14] MEDS: ENOXAPARIN INJ 40 MG/0.4 ML SYR SQ SCH ×2 (08:22→20:08)
[2021-04-14] MEDS: INSULIN GLARGINE SOLOSTAR 100 UNITS/ML 3 ML PEN SQ SCH (08:23)
[2021-04-14] MEDS: INSULIN ASPART PER UNIT SC SCH ×4 (08:26→21:43)
[2021-04-14] MEDS: FINASTERIDE 5 MG TAB PO SCH (12:58)
--- NOTE | 2021-04-14 14:35 | Hospitalist Progress Note ---
Date of Service April 14, 2021 Assessment & Plan (1) Nausea vomiting and diarrhea: Plan: Presented with nausea,vomiting,diarrhea and weakness Could be secondary to gastroenteritis Has been feeling much better since admission Has not been able to provide stool sample since admission Will continue symptomatic treatment Advance diet as tolerated sx have resolved Generalized weakness With history of fall will get PT/OT -d/c to home vs snf (2) CVA (cerebrovascular accident): Plan: History of stroke and has complete blindness No acute symptoms from stroke (3) Diabetes mellitus, type II: Plan: BSG stable a1c 7.8 on 04/13/21 hold metformin and semaglutide lantus/novolog per protocol (4) Hypothyroidism: Plan: Continue levothyroxine (5) CAD (coronary artery disease): Plan: continue metoprolol and atorvastatin denies CP/SOB (6) HLD (hyperlipidemia): Plan: Continue statin (7) Hypoxia: Plan: pt did not require O2 at home oximetry study revealed 1 L of O2 at HS will try to wean O2 during day pt will need OP sleep study and d/c on nocturnal oxygen (8) Anemia: Plan: hgb 9.6 10.8 on admission, likely dilutional appears chronic in nature, no s/sx of bleeding (9) DVT prophylaxis: Plan: SQ Lovenox BID Dispo: pt improving medically, likely to be medically stable tomorrow if sx remain resolved, OT eval pending, will need 1 L of O2 at HS at d/c and outpatient sleep study, plan to d/c home vs SNF FULL CODE PCP: Raysa Hobbs Admission and Anticipated Discharge Date Admission Date: April 12, 2021 Supervising Physician Co-Signing Physician Notes 04/14/2021 The patient was seen and examined in medical floor in presence of the He has been stable and does not have any more nausea, vomiting and/or diarrhea Denies any other significant symptoms On examination Lying in bed comfortably Hemodynamically stable with blood pressure at 146/81 Chestminimal decrease in breath sounds otherwise clear HeartS1-S2, regular Abdomenbenign Extremitiestrace edema bilaterally His labs, medications reviewed Presented with possible gastroenteritis and the condition seems to be resolved Awaiting PT and OT evaluation Reviewed with assessment and plan as outlined above by Keesha Tariq Subjective Patient is seen and examined in room 319. Follow-up possible gastroenteritis. "Working to get some solid food." He is also requesting something to help him cough out his mucus. He admits to passing gas but no bowel movement. Denies fever, chills, sweats, lightheadedness, dizziness, chest pain, shortness of breath, nausea, vomiting or abdominal pain. He has been tolerating liquids without difficulty. Review of Systems Review of Systems: All systems reviewed & are unremarkable except as noted in HPI & below Physical Exam Physical Exam: Gen: WD/WN, Elderly, M, [place], NAD, A&O x3 HEENT: Normocephalic, atraumatic, conjunctivae moist, sclerae anicteric, mucous membranes moist. Lung: Clear to Auscultation bilaterally, no wheezes/rales/rhonchi on 1L of O2 via [place] Heart: Regular rate, regular rhythm, no murmurs, rubs, or gallops Abdomen: Soft, NT, ND +BS x 4 Extremities: trace edema Skin: Warm, no rash, negative turgor. Results & Data Results & Data ([facility]) Vital Signs (Past 12 Hours) Vital Signs Temp Pulse Resp BP Pulse Ox 04/14/21 08:03 91 H 16 96 04/14/21 07:30 36.8 C 95 H 18 146/81 H 95 Laboratory Results Short CBC 04/14/21 Range/Units 05:28 WBC 7.13 (4.8-10.8) K/uL Hgb 9.6 L (14.0-18.0) g/dL Hct 31.1 L (42-52) % Plt Count 328 (130-400) K/uL BMP 04/14/21 05:28 Sodium 135 L Potassium 4.1 Chloride 99 Carbon Dioxide 30 BUN 12 Creatinine 1.08 Glucose 86 Calcium 8.5 Medications Administered Current Inpatient Medications Acetaminophen (Acetaminophen 325 Mg Tab) 650 mg PO Q4H PRN PRN Reason: pain/fever Stop: 05/12/21 22:43 Albuterol (Albuterol 0.083% Nebu Soln 3 Ml Vial) 2.5 mg INH Q4R PRN; Protocol PRN Reason: Shortness Of Breath Or Wheezing Stop: 05/12/21 22:43 Last Admin: 04/14/21 08:03 Dose: 2.5 mg Documented by: Ascorbic Acid (Ascorbic Acid 500 Mg Tab) 500 mg PO BID [facility] Stop: 05/13/21 08:59 Last Admin: 04/14/21 08:20 Dose: 500 mg Documented by: Atorvastatin Calcium (Atorvastatin 40 Mg Tab) 40 mg PO HS [facility] Stop: 05/13/21 20:59 Last Admin: 04/13/21 21:43 Dose: 40 mg Documented by: Benzonatate (Benzonatate 100 Mg Capsule) 200 mg PO TID [facility] Stop: 05/13/21 08:59 Last Admin: 04/14/21 12:58 Dose: 200 mg Documented by: Bisacodyl (Bisacodyl 10 Mg Supp) 10 mg [place] DAILY PRN PRN Reason: Constipation Stop: 05/12/21 22:43 Cetirizine HCl (Cetirizine Hcl 10 Mg Tablet) 10 mg PO DAILY [facility] Stop: 05/13/21 08:59 Last Admin: 04/14/21 08:20 Dose: 10 mg Documented by: Cyanocobalamin (Cyanocobalamin 500 Mcg Tablet (Vitamin B-12)) 500 mcg PO DAILY [facility] Stop: 05/13/21 08:59 Last Admin: 04/14/21 08:20 Dose: 500 mcg Documented by: Dextromethorphan Polymer Complex (Dextromethorphan Polymr Complx 30mg/5 Ml) 30 mg PO Q4H PRN PRN Reason: Cough Stop: 05/12/21 23:28 Enoxaparin Sodium (Enoxaparin Inj 40 Mg/0.4 Ml Syr) 40 mg SQ Q12 [facility] Stop: 05/12/21 23:14 Last Admin: 04/14/21 08:22 Dose: 40 mg Documented by: Escitalopram Oxalate (Escitalopram Oxalate 10 Mg Tab) 10 mg PO QAM [facility] Stop: 05/13/21 08:59 Last Admin: 04/14/21 08:21 Dose: 10 mg Documented by: Famotidine (Famotidine 20 Mg Tab) 20 mg PO BIDM [facility] Stop: 05/13/21 07:59 Last Admin: 04/14/21 08:20 Dose: 20 mg Documented by: Finasteride (Finasteride 5 Mg Tab) 5 mg PO QDL [facility] Stop: 05/13/21 11:29 Last Admin: 04/14/21 12:58 Dose: 5 mg Documented by: Folic Acid (Folic Acid 1 Mg Tab) 1 mg PO QAM [facility] Stop: 05/13/21 08:59 Last Admin: 04/14/21 08:20 Dose: 1 mg Documented by: Furosemide (Furosemide 20 Mg Tab) 30 mg PO DAILY [facility] Stop: 05/13/21 08:59 Last Admin: 04/14/21 08:21 Dose: 30 mg Documented by: Guaifenesin (Guaifenesin Sugar Free 200 Mg/10 Ml Udc) 200 mg PO Q4H PRN PRN Reason: Cough Stop: 05/12/21 23:29 Last Admin: 04/13/21 21:43 Dose: 200 mg Documented by: Guaifenesin (Guaifenesin 600 Mg Tabcr) 600 mg PO Q12 [facility] Stop: 05/14/21 20:59 Insulin Aspart (Insulin Aspart Per Unit) 0 units SC ACHS [facility] Stop: 05/12/21 23:29 Last Admin: 04/14/21 12:57 Dose: 6 units Documented by: Insulin Glargine (Insulin Glargine Solostar 100 Units/Ml 3 Ml Pen) 15 units SQ DAILY [facility] Stop: 05/13/21 08:59 Last Admin: 04/14/21 08:23 Dose: 15 units Documented by: Levothyroxine Sodium (Levothyroxine Sodium 25 Mcg Tablet) 25 mcg PO DAILYBB [facility] Stop: 05/13/21 06:29 Last Admin: 04/14/21 05:33 Dose: 25 mcg Documented by: Lidocaine (Lidocaine 5% 1 Patch) 1 patch TD QAM [facility] Stop: 05/13/21 08:59 Last Admin: 04/14/21 08:20 Dose: 1 patch Documented by: Melatonin (Melatonin 3 Mg Tab) 3 mg PO HS PRN PRN Reason: Sleep Stop: 05/12/21 23:55 Last Admin: 04/13/21 21:41 Dose: 3 mg Documented by: Metoprolol Succinate (Metoprolol Succ 25mg Ext Rel Tab) 25 mg PO DAILY [facility] Stop: 05/13/21 08:59 Last Admin: 04/14/21 08:21 Dose: 25 mg Documented by: Miscellaneous (Remove Lidoderm Patch) 1 ea N/A DAILY@2100 [facility] Stop: 05/13/21 20:59 Last Admin: 04/13/21 21:47 Dose: Not Given Documented by: Multivitamins (Multivitamin Tab) 1 tab PO QAM [facility] Stop: 05/13/21 08:59 Last Admin: 04/14/21 08:21 Dose: 1 tab Documented by: Mupirocin (Mupirocin 2% Oint 22 Gm Tube) 1 appln TOP DAILY PRN PRN Reason: Skin Irritation Stop: 05/12/21 23:18 Ondansetron HCl (Ondansetron Inj 2 Mg/Ml 2 Ml Vial) 4 mg IV Q6H PRN PRN Reason: Nausea Stop: 05/12/21 22:43 Last Admin: 04/14/21 08:38 Dose: 4 mg Documented by: Potassium Chloride (Potassium Chloride 10 Meq Tabcr) 10 meq PO DAILY [facility] Stop: 05/13/21 08:59 Last Admin: 04/14/21 08:22 Dose: 10 meq Documented by: Senna/Docusate Sodium (Docusate Sodium/Senna 50/8.6mg Tab) 1 tab PO HS [facility] Stop: 05/13/21 20:59 Last Admin: 04/13/21 21:42 Dose: 1 tab Documented by: (1) CVA (cerebrovascular accident) CVA mechanism: unspecified Qualified Code(s): I63.9 - Cerebral infarction, unspecified
[2021-04-14] MEDS: DOCUSATE SODIUM/SENNA 50/8.6MG TAB PO SCH (20:08)
[2021-04-14] MEDS: ATORVASTATIN 40 MG TAB PO SCH (20:09)
[2021-04-14] MEDS: guaiFENesin 600 MG TABCR PO SCH (20:09)
[2021-04-14 21:26] LABS: Adenovirus F 40/41 PCR Not Detected (NotDetected); Astrovirus PCR Not Detected (NotDetected); Campylobacter PCR Not Detected (NotDetected); Clostridium diff Toxin A/B PCR Not Detected (NotDetected); Cryptosporidium PCR Not Detected (NotDetected); Cyclospora cayetanensis PCR Not Detected (NotDetected); Entamoeba histolytica PCR Not Detected (NotDetected); Enteroaggregative E.coli(EAEC) Not Detected (NotDetected); Enteropathogenic E.coli (EPEC) Not Detected (NotDetected); Enterotoxigenic E.coli (ETEC) Not Detected (NotDetected); Giardia lamblia PCR Not Detected (NotDetected); Norovirus GI/GII PCR Not Detected (NotDetected); Plesiomonas shigelloides PCR Not Detected (NotDetected); Rotavirus A PCR Not Detected (NotDetected); Salmonella PCR Not Detected (NotDetected); Sapovirus PCR Not Detected (NotDetected); Shiga-like Toxin E.coli (STEC) Not Detected (NotDetected); Shigella/Enteroinvasive E.coli Not Detected (NotDetected); Vibrio cholerae PCR Not Detected (NotDetected); Vibrio species PCR Not Detected (NotDetected); Yersinia enterocolitica PCR Not Detected (NotDetected)
[2021-04-15] MEDS: LEVOTHYROXINE SODIUM 25 MCG TABLET PO SCH (05:54)
[2021-04-15] MEDS: POTASSIUM CHLORIDE 10 MEQ TABCR PO SCH (09:22)
[2021-04-15] MEDS: LIDOCAINE 5% 1 PATCH TD SCH (09:22)
[2021-04-15] MEDS: guaiFENesin 600 MG TABCR PO SCH ×2 (09:23→20:53)
[2021-04-15] MEDS: MULTIVITAMIN TAB PO SCH (09:23)
[2021-04-15] MEDS: METOPROLOL SUCC 25MG EXT REL TAB PO SCH (09:23)
[2021-04-15] MEDS: BENZONATATE 100 MG CAPSULE PO SCH ×3 (09:23→20:53)
[2021-04-15] MEDS: FUROSEMIDE 20 MG TAB PO SCH (09:24)
[2021-04-15] MEDS: ENOXAPARIN INJ 40 MG/0.4 ML SYR SQ SCH ×2 (09:25→20:54)
[2021-04-15] MEDS: FAMOTIDINE 20 MG TAB PO SCH ×2 (09:25→17:52)
[2021-04-15] MEDS: CETIRIZINE HCL 10 MG TABLET PO SCH (09:25)
[2021-04-15] MEDS: CYANOCOBALAMIN 500 MCG TABLET (VITAMIN B-12) PO SCH (09:25)
[2021-04-15] MEDS: FOLIC ACID 1 MG TAB PO SCH (09:25)
[2021-04-15] MEDS: ESCITALOPRAM OXALATE 10 MG TAB PO SCH (09:25)
[2021-04-15] MEDS: ASCORBIC ACID 500 MG TAB PO SCH ×2 (09:25→20:54)
[2021-04-15] MEDS: INSULIN ASPART PER UNIT SC SCH ×4 (09:26→20:50)
[2021-04-15] MEDS: INSULIN GLARGINE SOLOSTAR 100 UNITS/ML 3 ML PEN SQ SCH (09:26)
[2021-04-15] MEDS: FINASTERIDE 5 MG TAB PO SCH (12:34)
--- NOTE | 2021-04-15 13:01 | Hospitalist Progress Note ---
Date of Service April 15, 2021 Assessment & Plan (1) Nausea vomiting and diarrhea: Plan: Presented with nausea,vomiting,diarrhea and weakness Could be secondary to gastroenteritis Has been feeling much better since admission BM x 2 today, stool negative for cdiff and enteric pathogens tolerating regular diet Generalized weakness With history of fall will get PT/OT -d/c to SNF (2) CVA (cerebrovascular accident): Plan: History of stroke and has complete blindness Also right sided hemiparesis (3) Diabetes mellitus, type II: Plan: BSG stable a1c 7.8 on 04/13/21 hold metformin and semaglutide lantus/novolog per protocol (4) Hypothyroidism: Plan: Continue levothyroxine (5) CAD (coronary artery disease): Plan: continue metoprolol and atorvastatin denies CP/SOB (6) HLD (hyperlipidemia): Plan: Continue statin (7) Hypoxia: Plan: pt did not require O2 at home oximetry study revealed 1 L of O2 at HS will try to wean O2 during day pt will need OP sleep study and d/c on nocturnal oxygen (8) Anemia: Plan: hgb 9.6 10.8 on admission, likely dilutional appears chronic in nature, no s/sx of bleeding (9) DVT prophylaxis: Plan: SQ Lovenox BID Dispo: Pt medically stable for discharge, will need 1 L of O2 at HS at d/c and outpatient sleep study, plan to rehab pending [facility] FULL CODE PCP: Raysa Hobbs Pt is seen and examined in collaboration with Dr. Tariq, please see addendum Admission and Anticipated Discharge Date Admission Date: April 12, 2021 Supervising Physician Co-Signing Physician Notes Attending addendum: The patient was seen and examined in medical floor He remains stable and denies any significant symptoms On examination No apparent distress at rest Remains hemodynamically stable Chestdecreased breath sounds otherwise clear HeartS1-S2 regular Abdomenbenign His labs and medications reviewed Medically stable and awaiting placement Agree with assessment and plan as outlined above by Keesha Tariq Subjective Patient is seen and examined in room 319. Follow-up possible gastroenteritis. When asked how he was feeling today he states, "fat and ugly." He also states, "he feels with his hands." He feels back to baseline and ready to be discharged. He had 2 BMs today. Denies chest pain, shortness of breath, nausea, vomiting, abdominal pain, fever, chills, sweats. He is tolerating regular diet without difficulty. Review of Systems Review of Systems: All systems reviewed & are unremarkable except as noted in HPI & below Physical Exam Physical Exam: Gen: WD/WN, Elderly, M, [place], NAD, A&O x3 HEENT: Normocephalic, atraumatic, conjunctivae moist, sclerae anicteric, mucous membranes moist. Lung: Clear to Auscultation bilaterally, no wheezes/rales/rhonchi on room air Heart: Regular rate, regular rhythm, no murmurs, rubs, or gallops Abdomen: Soft, NT, ND +BS x 4 Extremities: trace edema, right-sided hemiparesis Skin: Warm, no rash, negative turgor. Results & Data Results & Data ([facility]) Vital Signs (Past 12 Hours) Vital Signs Temp Pulse Resp BP Pulse Ox 04/15/21 07:39 36.7 C 83 16 138/76 94 Laboratory Results Stool Culture negative Medications Administered Current Inpatient Medications Acetaminophen (Acetaminophen 325 Mg Tab) 650 mg PO Q4H PRN PRN Reason: pain/fever Stop: 05/12/21 22:43 Albuterol (Albuterol 0.083% Nebu Soln 3 Ml Vial) 2.5 mg INH Q4R PRN; Protocol PRN Reason: Shortness Of Breath Or Wheezing Stop: 05/12/21 22:43 Last Admin: 04/14/21 08:03 Dose: 2.5 mg Documented by: Ascorbic Acid (Ascorbic Acid 500 Mg Tab) 500 mg PO BID [facility] Stop: 05/13/21 08:59 Last Admin: 04/15/21 09:25 Dose: 500 mg Documented by: Atorvastatin Calcium (Atorvastatin 40 Mg Tab) 40 mg PO HS [facility] Stop: 05/13/21 20:59 Last Admin: 04/14/21 20:09 Dose: 40 mg Documented by: Benzonatate (Benzonatate 100 Mg Capsule) 200 mg PO TID [facility] Stop: 05/13/21 08:59 Last Admin: 04/15/21 12:35 Dose: 200 mg Documented by: Bisacodyl (Bisacodyl 10 Mg Supp) 10 mg [place] DAILY PRN PRN Reason: Constipation Stop: 05/12/21 22:43 Cetirizine HCl (Cetirizine Hcl 10 Mg Tablet) 10 mg PO DAILY [facility] Stop: 05/13/21 08:59 Last Admin: 04/15/21 09:25 Dose: 10 mg Documented by: Cyanocobalamin (Cyanocobalamin 500 Mcg Tablet (Vitamin B-12)) 500 mcg PO DAILY [facility] Stop: 05/13/21 08:59 Last Admin: 04/15/21 09:25 Dose: 500 mcg Documented by: Dextromethorphan Polymer Complex (Dextromethorphan Polymr Complx 30mg/5 Ml) 30 mg PO Q4H PRN PRN Reason: Cough Stop: 05/12/21 23:28 Enoxaparin Sodium (Enoxaparin Inj 40 Mg/0.4 Ml Syr) 40 mg SQ Q12 [facility] Stop: 05/12/21 23:14 Last Admin: 04/15/21 09:25 Dose: 40 mg Documented by: Escitalopram Oxalate (Escitalopram Oxalate 10 Mg Tab) 10 mg PO QAM [facility] Stop: 05/13/21 08:59 Last Admin: 04/15/21 09:25 Dose: 10 mg Documented by: Famotidine (Famotidine 20 Mg Tab) 20 mg PO BIDM [facility] Stop: 05/13/21 07:59 Last Admin: 04/15/21 09:25 Dose: 20 mg Documented by: Finasteride (Finasteride 5 Mg Tab) 5 mg PO QDL [facility] Stop: 05/13/21 11:29 Last Admin: 04/15/21 12:34 Dose: 5 mg Documented by: Folic Acid (Folic Acid 1 Mg Tab) 1 mg PO QAM [facility] Stop: 05/13/21 08:59 Last Admin: 04/15/21 09:25 Dose: 1 mg Documented by: Furosemide (Furosemide 20 Mg Tab) 30 mg PO DAILY [facility] Stop: 05/13/21 08:59 Last Admin: 04/15/21 09:24 Dose: 30 mg Documented by: Guaifenesin (Guaifenesin Sugar Free 200 Mg/10 Ml Udc) 200 mg PO Q4H PRN PRN Reason: Cough Stop: 05/12/21 23:29 Last Admin: 04/13/21 21:43 Dose: 200 mg Documented by: Guaifenesin (Guaifenesin 600 Mg Tabcr) 600 mg PO Q12 [facility] Stop: 05/14/21 20:59 Last Admin: 04/15/21 09:23 Dose: 600 mg Documented by: Insulin Aspart (Insulin Aspart Per Unit) 0 units SC ACHS [facility] Stop: 05/12/21 23:29 Last Admin: 04/15/21 12:36 Dose: 5 units Documented by: Insulin Glargine (Insulin Glargine Solostar 100 Units/Ml 3 Ml Pen) 15 units SQ DAILY [facility] Stop: 05/13/21 08:59 Last Admin: 04/15/21 09:26 Dose: 15 units Documented by: Levothyroxine Sodium (Levothyroxine Sodium 25 Mcg Tablet) 25 mcg PO DAILYBB [facility] Stop: 05/13/21 06:29 Last Admin: 04/15/21 05:54 Dose: 25 mcg Documented by: Lidocaine (Lidocaine 5% 1 Patch) 1 patch TD QAM [facility] Stop: 05/13/21 08:59 Last Admin: 04/15/21 09:22 Dose: 1 patch Documented by: Melatonin (Melatonin 3 Mg Tab) 3 mg PO HS PRN PRN Reason: Sleep Stop: 05/12/21 23:55 Last Admin: 04/13/21 21:41 Dose: 3 mg Documented by: Metoprolol Succinate (Metoprolol Succ 25mg Ext Rel Tab) 25 mg PO DAILY [facility] Stop: 05/13/21 08:59 Last Admin: 04/15/21 09:23 Dose: 25 mg Documented by: Miscellaneous (Remove Lidoderm Patch) 1 ea N/A DAILY@2100 [facility] Stop: 05/13/21 20:59 Last Admin: 04/14/21 21:45 Dose: 1 ea Documented by: Multivitamins (Multivitamin Tab) 1 tab PO QAM [facility] Stop: 05/13/21 08:59 Last Admin: 04/15/21 09:23 Dose: 1 tab Documented by: Mupirocin (Mupirocin 2% Oint 22 Gm Tube) 1 appln TOP DAILY PRN PRN Reason: Skin Irritation Stop: 05/12/21 23:18 Ondansetron HCl (Ondansetron Inj 2 Mg/Ml 2 Ml Vial) 4 mg IV Q6H PRN PRN Reason: Nausea Stop: 05/12/21 22:43 Last Admin: 04/14/21 08:38 Dose: 4 mg Documented by: Potassium Chloride (Potassium Chloride 10 Meq Tabcr) 10 meq PO DAILY [facility] Stop: 05/13/21 08:59 Last Admin: 04/15/21 09:22 Dose: 10 meq Documented by: Senna/Docusate Sodium (Docusate Sodium/Senna 50/8.6mg Tab) 1 tab PO HS [facility] Stop: 05/13/21 20:59 Last Admin: 04/14/21 20:08 Dose: 1 tab Documented by: (1) CVA (cerebrovascular accident) CVA mechanism: unspecified Qualified Code(s): I63.9 - Cerebral infarction, unspecified
[2021-04-15] MEDS: ATORVASTATIN 40 MG TAB PO SCH (20:54)
[2021-04-16] MEDS: ACETAMINOPHEN 325 MG TAB PO PRN ×2 (00:41→21:42)
[2021-04-16] MEDS: LEVOTHYROXINE SODIUM 25 MCG TABLET PO SCH (06:00)
[2021-04-16 06:36] LABS: Basophils # (auto) 0.01 K/uL (0-0.2); Basophils % (auto) 0.1 %; Eosinophils # (auto) 0.21 K/uL (0-0.5); Eosinophils % (auto) 2.8 %; Hematocrit (blood only) 34.4 % (42-52); Hemoglobin 10.8 g/dL (14.0-18.0); Immature Granulocytes # (auto) 0.01 K/uL (0.00-0.02); Immature Granulocytes % (auto) 0.1 %; Lymphocytes # (auto) 1.82 K/uL (1.2-3.4); Lymphocytes % (auto) 24.3 %; Mean Corpuscular Hemoglobin 27.6 pg (25-34); Mean Corpuscular Hgb Conc 31.4 g/dL (32-36); Mean Corpuscular Volume 87.8 fL (80-100); Mean Platelet Volume 9.7 fL (7.4-10.4); Monocytes # (auto) 0.53 K/uL (0.11-0.59); Monocytes % (auto) 7.1 %; Neutrophils # (auto) 4.92 K/uL (1.4-6.5); Neutrophils % (auto) 65.6 %; Platelet Count 362 K/uL (130-400); RDW Coefficient of Variation 15.4 % (11.5-14.5); RDW Standard Deviation 49.3 fL (36.4-46.3); Red Blood Count 3.92 M/uL (4.7-6.1)
[2021-04-16 06:55] LABS: BUN Creatinine Ratio 9.6 (10-20); Calcium 9.4 mg/dl (8.5-10.1); Creatinine Clr Calc Pharmacy 79.3 ml/min; Est GFR (African American) 73.5 ml/min; Est GFR (Non-African American) 63.4 ml/min; Potassium 3.9 mmol/L (3.5-5.1)
[2021-04-16] MEDS: LIDOCAINE 5% 1 PATCH TD SCH (07:35)
[2021-04-16] MEDS: POTASSIUM CHLORIDE 10 MEQ TABCR PO SCH (07:36)
[2021-04-16] MEDS: MULTIVITAMIN TAB PO SCH (07:36)
[2021-04-16] MEDS: FUROSEMIDE 20 MG TAB PO SCH (07:36)
[2021-04-16] MEDS: ENOXAPARIN INJ 40 MG/0.4 ML SYR SQ SCH ×2 (07:36→21:45)
[2021-04-16] MEDS: guaiFENesin 600 MG TABCR PO SCH ×2 (07:36→21:43)
[2021-04-16] MEDS: METOPROLOL SUCC 25MG EXT REL TAB PO SCH (07:36)
[2021-04-16] MEDS: CYANOCOBALAMIN 500 MCG TABLET (VITAMIN B-12) PO SCH (07:37)
[2021-04-16] MEDS: FOLIC ACID 1 MG TAB PO SCH (07:37)
[2021-04-16] MEDS: CETIRIZINE HCL 10 MG TABLET PO SCH (07:37)
[2021-04-16] MEDS: BENZONATATE 100 MG CAPSULE PO SCH ×3 (07:37→21:45)
[2021-04-16] MEDS: ESCITALOPRAM OXALATE 10 MG TAB PO SCH (07:37)
[2021-04-16] MEDS: FAMOTIDINE 20 MG TAB PO SCH ×2 (07:38→17:29)
[2021-04-16] MEDS: ASCORBIC ACID 500 MG TAB PO SCH ×2 (07:38→21:44)
[2021-04-16] MEDS: INSULIN ASPART PER UNIT SC SCH ×4 (08:40→21:46)
[2021-04-16] MEDS: INSULIN GLARGINE SOLOSTAR 100 UNITS/ML 3 ML PEN SQ SCH (08:41)
--- NOTE | 2021-04-16 12:30 | Hospitalist Progress Note ---
Date of Service April 16, 2021 Assessment & Plan (1) Nausea vomiting and diarrhea: Plan: Presented with nausea,vomiting,diarrhea and weakness Could be secondary to gastroenteritis Has been feeling much better since admission stool negative for cdiff and enteric pathogens tolerating regular diet Generalized weakness With history of fall Medically stable, awaiting DC to SNF (2) CVA (cerebrovascular accident): Plan: History of stroke and has complete blindness Also right sided hemiparesis (3) Diabetes mellitus, type II: Plan: BSG stable a1c 7.8 on 04/13/21 hold metformin and semaglutide lantus/novolog per protocol (4) Hypothyroidism: Plan: Continue levothyroxine (5) CAD (coronary artery disease): Plan: continue metoprolol and atorvastatin denies CP/SOB (6) HLD (hyperlipidemia): Plan: Continue statin (7) Hypoxia: Plan: pt did not require O2 at home oximetry study revealed 1 L of O2 at HS will try to wean O2 during day pt will need OP sleep study and d/c on nocturnal oxygen (8) Anemia: Plan: hgb 10.8 Baseline appears chronic in nature, no s/sx of bleeding (9) DVT prophylaxis: Plan: SQ Lovenox BID Dispo: Pt medically stable for discharge, will need 1 L of O2 at HS at d/c and outpatient sleep study, awaiting SNF FULL CODE PCP: Raysa Hobbs Pt is seen and examined in collaboration with Dr. Ruff, please see addendum Admission and Anticipated Discharge Date Admission Date: April 12, 2021 Supervising Physician Co-Signing Physician Notes I have seen and examined the patient and have discussed the case with the provid er above. I agree with the assessment and plan as stated. My physical exam reflects that above. DO Speedy Subjective Patient is seen and examined in room 319. Follow-up possible gastroenteritis. Patient states, "I am tired today." He denies nausea, vomiting, diarrhea, abdominal pain. He is tolerating diet. Denies fever, chills, sweats, chest pain, shortness of breath. Appetite is good. He is pending SNF Rehab. Review of Systems Review of Systems: All systems reviewed & are unremarkable except as noted in HPI & below Physical Exam Physical Exam: Gen: WD/WN, Elderly, M, ANIAK, NAD, A&O x3 HEENT: Normocephalic, atraumatic, conjunctivae moist, sclerae anicteric, mucous membranes moist. Lung: Clear to Auscultation bilaterally, no wheezes/rales/rhonchi on room air Heart: Regular rate, regular rhythm, no murmurs, rubs, or gallops Abdomen: Obese abdomen, Soft, NT, ND +BS x 4 Extremities: trace edema, right-sided hemiparesis Skin: Warm, no rash, negative turgor. Results & Data Results & Data ([facility]) Vital Signs (Past 12 Hours) Vital Signs Temp Pulse Resp BP Pulse Ox 04/16/21 07:33 36.6 C 88 18 158/82 H 97 Laboratory Results Short CBC 04/16/21 Range/Units 05:54 WBC 7.50 (4.8-10.8) K/uL Hgb 10.8 L (14.0-18.0) g/dL Hct 34.4 L (42-52) % Plt Count 362 (130-400) K/uL BMP 04/16/21 05:54 Sodium 137 Potassium 3.9 Chloride 98 Carbon Dioxide 32 BUN 11 Creatinine 1.14 Glucose 132 H Calcium 9.4 Medications Administered Current Inpatient Medications Acetaminophen (Acetaminophen 325 Mg Tab) 650 mg PO Q4H PRN PRN Reason: pain/fever Stop: 05/12/21 22:43 Last Admin: 04/16/21 00:41 Dose: 650 mg Documented by: Albuterol (Albuterol 0.083% Nebu Soln 3 Ml Vial) 2.5 mg INH Q4R PRN; Protocol PRN Reason: Shortness Of Breath Or Wheezing Stop: 05/12/21 22:43 Last Admin: 04/14/21 08:03 Dose: 2.5 mg Documented by: Ascorbic Acid (Ascorbic Acid 500 Mg Tab) 500 mg PO BID DHAVAL Stop: 05/13/21 08:59 Last Admin: 04/16/21 07:38 Dose: 500 mg Documented by: Atorvastatin Calcium (Atorvastatin 40 Mg Tab) 40 mg PO HS DHAVAL Stop: 05/13/21 20:59 Last Admin: 04/15/21 20:54 Dose: 40 mg Documented by: Benzonatate (Benzonatate 100 Mg Capsule) 200 mg PO TID DHAVAL Stop: 05/13/21 08:59 Last Admin: 04/16/21 07:37 Dose: 200 mg Documented by: Bisacodyl (Bisacodyl 10 Mg Supp) 10 mg MD DAILY PRN PRN Reason: Constipation Stop: 05/12/21 22:43 Cetirizine HCl (Cetirizine Hcl 10 Mg Tablet) 10 mg PO DAILY DHAVAL Stop: 05/13/21 08:59 Last Admin: 04/16/21 07:37 Dose: 10 mg Documented by: Cyanocobalamin (Cyanocobalamin 500 Mcg Tablet (Vitamin B-12)) 500 mcg PO DAILY DHAVAL Stop: 05/13/21 08:59 Last Admin: 04/16/21 07:37 Dose: 500 mcg Documented by: Dextromethorphan Polymer Complex (Dextromethorphan Polymr Complx 30mg/5 Ml) 30 mg PO Q4H PRN PRN Reason: Cough Stop: 05/12/21 23:28 Enoxaparin Sodium (Enoxaparin Inj 40 Mg/0.4 Ml Syr) 40 mg SQ Q12 [facility] Stop: 05/12/21 23:14 Last Admin: 04/16/21 07:36 Dose: 40 mg Documented by: Escitalopram Oxalate (Escitalopram Oxalate 10 Mg Tab) 10 mg PO QAM [facility] Stop: 05/13/21 08:59 Last Admin: 04/16/21 07:37 Dose: 10 mg Documented by: Famotidine (Famotidine 20 Mg Tab) 20 mg PO BIDM [facility] Stop: 05/13/21 07:59 Last Admin: 04/16/21 07:38 Dose: 20 mg Documented by: Finasteride (Finasteride 5 Mg Tab) 5 mg PO QDL [facility] Stop: 05/13/21 11:29 Last Admin: 04/15/21 12:34 Dose: 5 mg Documented by: Folic Acid (Folic Acid 1 Mg Tab) 1 mg PO QAM [facility] Stop: 05/13/21 08:59 Last Admin: 04/16/21 07:37 Dose: 1 mg Documented by: Furosemide (Furosemide 20 Mg Tab) 30 mg PO DAILY [facility] Stop: 05/13/21 08:59 Last Admin: 04/16/21 07:36 Dose: 30 mg Documented by: Guaifenesin (Guaifenesin Sugar Free 200 Mg/10 Ml Udc) 200 mg PO Q4H PRN PRN Reason: Cough Stop: 05/12/21 23:29 Last Admin: 04/13/21 21:43 Dose: 200 mg Documented by: Guaifenesin (Guaifenesin 600 Mg Tabcr) 600 mg PO Q12 [facility] Stop: 05/14/21 20:59 Last Admin: 04/16/21 07:36 Dose: 600 mg Documented by: Insulin Aspart (Insulin Aspart Per Unit) 0 units SC ACHS [facility] Stop: 05/12/21 23:29 Last Admin: 04/16/21 08:40 Dose: 6 units Documented by: Insulin Glargine (Insulin Glargine Solostar 100 Units/Ml 3 Ml Pen) 15 units SQ DAILY [facility] Stop: 05/13/21 08:59 Last Admin: 04/16/21 08:41 Dose: 15 units Documented by: Levothyroxine Sodium (Levothyroxine Sodium 25 Mcg Tablet) 25 mcg PO DAILYBB [facility] Stop: 05/13/21 06:29 Last Admin: 04/16/21 06:00 Dose: 25 mcg Documented by: Lidocaine (Lidocaine 5% 1 Patch) [facility] [place] [facility]: 05/13/21 08:59 Last Admin: 04/16/21 07:35 Dose: 1 patch Documented by: Melatonin (Melatonin 3 Mg Tab) 3 mg PO HS PRN PRN Reason: Sleep Stop: 05/12/21 23:55 Last Admin: 04/13/21 21:41 Dose: 3 mg Documented by: Metoprolol Succinate (Metoprolol Succ 25mg Ext Rel Tab) 25 mg PO DAILY [facility] Stop: 05/13/21 08:59 Last Admin: 04/16/21 07:36 Dose: 25 mg Documented by: Miscellaneous (Remove Lidoderm Patch) 1 ea N/A DAILY@2100 [facility] Stop: 05/13/21 20:59 Last Admin: 04/15/21 20:54 Dose: 1 ea Documented by: Multivitamins (Multivitamin Tab) 1 tab PO QAM [facility] Stop: 05/13/21 08:59 Last Admin: 04/16/21 07:36 Dose: 1 tab Documented by: Mupirocin (Mupirocin 2% Oint 22 Gm Tube) 1 appln TOP DAILY PRN PRN Reason: Skin Irritation Stop: 05/12/21 23:18 Ondansetron HCl (Ondansetron Inj 2 Mg/Ml 2 Ml Vial) 4 mg IV Q6H PRN PRN Reason: Nausea Stop: 05/12/21 22:43 Last Admin: 04/14/21 08:38 Dose: 4 mg Documented by: Potassium Chloride (Potassium Chloride 10 Meq Tabcr) 10 meq PO DAILY [facility] Stop: 05/13/21 08:59 Last Admin: 04/16/21 07:36 Dose: 10 meq Documented by: (1) CVA (cerebrovascular accident) CVA mechanism: unspecified Qualified Code(s): I63.9 - Cerebral infarction, unspecified
[2021-04-16] MEDS: FINASTERIDE 5 MG TAB PO SCH (12:34)
[2021-04-16] MEDS: MELATONIN 3 MG TAB PO PRN (21:42)
[2021-04-16] MEDS: ATORVASTATIN 40 MG TAB PO SCH (21:44)
[2021-04-17] MEDS: LEVOTHYROXINE SODIUM 25 MCG TABLET PO SCH (06:08)
[2021-04-17 07:32] VITALS: BP 150/80; PULSE 79; TEMP 97.5; O2SAT 99
[2021-04-17] MEDS ORDERED: BENZONATATE 100 MG CAPSULE PO PRN (08:05)
[2021-04-17] MEDS: FAMOTIDINE 20 MG TAB PO SCH (09:00)
[2021-04-17] MEDS: CETIRIZINE HCL 10 MG TABLET PO SCH (09:00)
[2021-04-17] MEDS: ESCITALOPRAM OXALATE 10 MG TAB PO SCH (09:00)
[2021-04-17] MEDS: ASCORBIC ACID 500 MG TAB PO SCH (09:00)
[2021-04-17] MEDS: METOPROLOL SUCC 25MG EXT REL TAB PO SCH (09:01)
[2021-04-17] MEDS: MULTIVITAMIN TAB PO SCH (09:01)
[2021-04-17] MEDS: POTASSIUM CHLORIDE 10 MEQ TABCR PO SCH (09:01)
[2021-04-17] MEDS: FOLIC ACID 1 MG TAB PO SCH (09:01)
[2021-04-17] MEDS: CYANOCOBALAMIN 500 MCG TABLET (VITAMIN B-12) PO SCH (09:01)
[2021-04-17] MEDS: guaiFENesin 600 MG TABCR PO SCH (09:01)
[2021-04-17] MEDS: FUROSEMIDE 20 MG TAB PO SCH (09:01)
[2021-04-17] MEDS: LIDOCAINE 5% 1 PATCH TD SCH (09:06)
[2021-04-17] MEDS: ENOXAPARIN INJ 40 MG/0.4 ML SYR SQ SCH (09:06)
[2021-04-17] MEDS: INSULIN GLARGINE SOLOSTAR 100 UNITS/ML 3 ML PEN SQ SCH (09:07)
[2021-04-17] MEDS: INSULIN ASPART PER UNIT SC SCH ×2 (09:09→12:45)
[2021-04-17] MEDS: FINASTERIDE 5 MG TAB PO SCH (10:44)
--- NOTE | 2021-04-17 12:24 | Discharge Summary ---
Date of Service April 17, 2021 Admission HPI Per Admitting Provider This is a 75-year-old male with past medical history significant for type 2 diabetes, hyperlipidemia, CAD, obesity, history of occipital cerebral infarction, completely blind, history of focal seizures, currently not on any medications, history of status post carotid endarterectomy, who presents with nausea, vomiting, diarrhea. As per the , the patient was not feeling well yesterday. Today, he has a lot of nausea, vomiting and diarrhea, several episodes of diarrhea, watery stools. Stools are somewhat black, but he takes iron pills, he is not getting better, he was brought to the hospital. There was no fever or chills. He has some cough. In the ER, was short of breath and requiring 2 liters oxygen, but CT of the chest was showing no PE and no infiltrates. The patient is COVID vaccinated. Received booster in February 2021. Denies any chest pain, no headache, no runny nose, no sore throat. Otherwise, he can eat and swallow okay. Ambulates with walker with help. Not returned very much urine today, he has some mild swelling in the legs. says the cough is chronic. Admission Exam Per Admitting Provider GENERAL: The patient is obese, not in acute distress. VITAL SIGNS: Temperature 36.6, pulse 87, respirations 17, blood pressure 139/76 Oxygen 99% on 2 liters, was 86% on room air. HEENT: Atraumatic. No facial droop. Oral mucosa moist. NECK: No JVD or neck masses. CARDIOVASCULAR: S1 and S2 heard. Regular rate and rhythm. No murmur, no gallop. RESPIRATORY SYSTEM: Normal AP diameter. No accessory muscle use. No wheezing, no crackles. ABDOMEN: Soft, bowel sounds present, nontender, no distention. CENTRAL NERVOUS SYSTEM: Alert and oriented. Bilateral blindness. No facial droop. Speech is clear. Obeys commands. Insight is okay. Moves extremities. EXTREMITIES: Mild edema, no erythema seen. Principal Diagnosis gastroenteritis Discharge Exam Gen: WD/WN, Elderly, M, SOLOMON, NAD, A&O x3, obese HEENT: Normocephalic, atraumatic, conjunctivae moist, sclerae anicteric, mucous membranes moist. Lung: Clear to Auscultation bilaterally, + wheeze noted in R midlung, cleared with cough Heart: Regular rate, regular rhythm, no murmurs, rubs, or gallops Abdomen: Obese abdomen, Soft, NT, ND +BS x 4 Extremities: trace edema, right-sided hemiparesis Skin: Warm, no rash, negative turgor. Discharge Data Allergies Allergy/AdvReac Type Severity Reaction Status Date / Time tramadol [From Ultram] Allergy Severe Seizure Verified 10/12/19 13:49 haloperidol [From Haldol] Allergy Unknown Unknown Verified 10/12/19 13:49 lisinopril AdvReac Cough Unverified 04/12/21 20:59 Consultations 04/12/21 19:06 ED Decision to Admit Stat Ordered Studies 04/12/21 14:35 CT abd pelvis IV con only Stat 04/12/21 15:08 CT angio chest PE protocol Stat 04/12/21 15:28 CT lumbar spine w con Stat Hospital Course (1) Nausea vomiting and diarrhea: (2) CVA (cerebrovascular accident): (3) Diabetes mellitus, type II: (4) Hypothyroidism: (5) CAD (coronary artery disease): (6) HLD (hyperlipidemia): (7) Hypoxia: (8) Anemia: This is a 75-year-old male with past medical history significant for type 2 diabetes, hyperlipidemia, CAD, obesity, history of occipital cerebral infarction, completely blind, history of focal seizures, currently not on any medications, history of status post carotid endarterectomy, who presents with nausea, vomiting, diarrhea. Likely viral gastroenteritis that has resolved. Tolerating diet and fluids without issue. Normal bowel movement this morning. Stool negative for c. diff and enteric pathogens. Of note, patient with history of stroke with R sided hemiparesis and has complete blindness. Will continue to need fall precautions as he transitions to rehab. Oximetry study revealed 1 L of O2 at HS. Discharging to [facility] on noctural oxygen. Will need OP sleep study as outpatient. Patient asymptomatic and hemodynamically stable at time of discharge. Total Time Total Time Spent Total Time Spent (In Minutes): 45 Discharge Plan Discharge Items Patient Disposition: Transfer Inpatient Rehab Fac Reason For Visit: ILLNESS Discharge Diagnosis: gastroenteritis Activity: Resume your previous activity Non-emergency contact: Primary Care Provider Call non-emergency contact if: you have any medication questions, your symptoms worsen and you have a fever Follow-up/Referrals: Raysa Hobbs M.D. [Primary Care Provider] - Diet: Carb Consistent or DM2 and Heart Healthy Addtl Attending Provider Instructions: You were admitted for nausea, vomiting and diarrhea likely secondary to gastroenteritis. Symptoms have resolved. Tolerating diet without issue. Stool negative for C diff and enteric pathogens. You were requiring oxygen during admission and oximetry studied revealed need for 1 L O2 HS. Will need outpatient sleep study. MEDICATION CHANGES: Continue home medications as listed below. RECOMMENDATIONS FOR FOLLOW-UP: Follow up with PCP as scheduled. OTHER INSTRUCTIONS: Seek medical attention if you have: * temperature above 101 * chest pain or trouble breathing * abdominal pain, nausea, vomiting * diarrhea, dark stools or bloody stools * any unanswered questions or concerns Call 911 if symptoms are severe. Please take good care of yourself. Call if you have any questions or problems. You can reach a [facility] hospitalist on duty at [facility] 24 hours a day by calling [phone]. Suki Guevara PA-C [facility] Hospitalist Pending Studies at Discharge: No Stand-Alone Forms: My [facility] Skilled Items Patient informed of condition?: Yes DNR: No Discharge Level of Care: Acute rehab Communicable Disease: No Discharge Prognosis: Stable Lines: None Urinary Catheter: No Medications and DC Order Prescriptions: Continued cetirizine 10 mg Tablet 10 mg PO DAILY RF: 0 finasteride 5 mg Tablet 5 mg PO QDL RF: 0 escitalopram oxalate [Lexapro] 10 mg Tablet 10 mg PO QAM RF: 0 lidocaine 5 % Adhesive Patch,Medicated 1 patch transdermal QAM Qty: 30 RF: 0 atorvastatin 40 mg tablet 40 mg PO HS RF: 0 metformin 1,000 mg tablet 1,000 mg PO BID RF: 0 folic acid 1 mg Tablet 1 mg PO QAM RF: 0 ascorbic acid (vitamin C) 500 mg Tablet 500 mg PO BID RF: 0 famotidine 20 mg Tablet 20 mg PO BIDM RF: 0 mupirocin 2 % Ointment 1 applic TOPICAL DAILY PRN (Reason: Skin Irritation) RF: 0 dextromethorphan-guaifenesin 15-100 mg/5 mL Syrup 10 ml PO Q4H PRN (Reason: Cough) RF: 0 sennosides-docusate sodium [Senokot-S] 8.6-50 mg tablet 1 tab PO HS RF: 0 bisacodyl 10 mg Suppository 10 mg TN DAILY PRN (Reason: Constipation) RF: 0 benzonatate 100 mg Capsule 200 mg PO TID RF: 0 cyanocobalamin (vitamin B-12) 500 mcg Tablet 500 mcg PO DAILY RF: 0 semaglutide 1 mg/dose (4 mg/3 mL) Pen Injector 1 mg SUBCUT WK RF: 0 albuterol sulfate 2.5 mg /3 mL (0.083 %) Solution For Nebulization 2.5 mg INHALATION Q4H PRN (Reason: Shortness Of Breath Or Wheezing) RF: 0 potassium chloride 20 mEq Tablet Extended Release 10 meq PO DAILY RF: 0 multivitamin Tablet 1 tab PO DAILY RF: 0 metoprolol succinate 50 mg Tablet Extended Release 24 Hr 25 mg PO DAILY RF: 0 levothyroxine 25 mcg Tablet 25 mcg PO .DAILY@6AM RF: 0 insulin lispro 100 unit/mL Insulin Pen 1 sliding scale dose SUBCUT USEASDIRECTD RF: 0 furosemide 20 mg Tablet 30 mg PO DAILY RF: 0 insulin glargine 100 unit/mL (3 mL) Insulin Pen 15 unit SUBCUT DAILY RF: 0 Discharge Orders: Discharge Order (Routine); Ordered 04/17/21 Ordered By: Suki Doyle/Other Patient Handouts: Managing Type 2 Diabetes Admission Data Admit Date/Time: 04/12/21 20:35 Attending Provider: Drea Ruff Admit Provider: Geoffrey Wiggins Primary Care Provider: Raysa Hobbs Other Providers: [facility] ; Keesha Nguyen ; [facility] ; [place] ; Suki Guevara Other Interventions: Discharge Summary Assessment (RN) Last Done: 04/17/21 10:55 Supervising Physician Co-Signing Physician Notes I have seen and examined the patient and have discussed the case with the provider above. I agree with the assessment and plan as stated. I have examined him on day of discharge and he is feeling well without symptoms, initial symptoms have resolved but he remains with weakness and physical deconditioning so is heading to rehab. He also has low vision at baseline. Agree with summary and plan as above. Close followup with primary care recommended. DO Speedy
== END 2021-04-17 13:00 | DRG 392 ==
LOC: ED 14:12 → 3E 20:35 → SUATTDRO 20:35 → 3E 22:52

== ENCOUNTER 2023-04-01 14:27 | Inpatient (IN) ==
--- NOTE | 2023-04-01 14:37 | ED Triage Note ---
Date of Service April 01, 2023 Provider in Triage Author: Bonnie Rubio History of Present Illness This patient was briefly evaluated while in triage. An abbreviated physical exam was performed. This patient is a 77-year-old Male who presents to the ED for evaluation of shortness of breath. History of COPD, not on home O2. states sick with cold symptoms of fever, sinus congestion, cough last week. Physical Exam Constitutional: alert and oriented x3. no acute distress. HEENT: normocephalic, atraumatic. normal conjunctiva.PERRLA. EOM's grossly intact. Respiratory: equal chest rise. normal respiratory effort, no accessory muscle use. Cardiovascular: regular rate and rhythm. MSK: moves all 4 extremities spontaneously Psych:appropriate mood and affect. Initial orders for labs and / or imaging were placed and patient was placed in the waiting area until a bed is available. Please see further documentation for the full ED course.
--- NOTE | 2023-04-01 15:17 | XRay Report ---
SINGLE VIEW CHEST CLINICAL HISTORY: Dyspnea FINDINGS: An AP upright chest radiograph is compared to study dated 10/16/2019 and correlated with [facility] dated 04/12/2021. The examination is degraded by patient rotation. The heart is enlarged noting atherosclerotic calcification of the thoracic aorta. There is mild pulmonary vascular congestion. Ch ronic interstitial thickening is similar to previous. There are small pleural effusions with dependen t atelectasis. No pneumothorax is seen. The skeletal structures are osteopenic. There are chronic/hea led left-sided rib fractures. Postsurgical changes noted in the spine with thoracolumbar spinal rods in place. IMPRESSION: 1. Cardiomegaly with mild pulmonary vascular congestion. 2. Small pleural effusions with dependent atelectasis. ACT 112: Negative or not required by law. Electronically signed by: Dillan Denis M.D. 04/01/2023 3:16 PM
[2023-04-01 15:53] LABS: Basophils # (auto) 0.02 K/uL (0.00-0.20); Basophils % (auto) 0.5 %; Eosinophils # (auto) 0.07 K/uL (0.00-0.50); Eosinophils % (auto) 1.8 %; Hematocrit (blood only) 36.5 % (42.0-52.0); Hemoglobin 12.5 g/dl (14.0-18.0); Immature Granulocytes # (auto) 0.02 K/uL (0.01-0.20); Immature Granulocytes % (auto) 0.5 %; Lymphocytes # (auto) 1.29 K/uL (1.20-3.40); Lymphocytes % (auto) 33.2 %; Mean Corpuscular Hemoglobin 29.6 pg (25.0-34.0); Mean Corpuscular Hgb Conc 34.2 g/dL (32.0-36.0); Mean Corpuscular Volume 86.3 fL (80.0-100.0); Mean Platelet Volume 9.6 fL (9.4-12.4); Monocytes # (auto) 0.25 K/uL (0.11-0.59); Monocytes % (auto) 6.4 %; Neutrophils # (auto) 2.24 K/uL (1.40-6.50); Neutrophils % (auto) 57.6 %; Platelet Count 224 K/uL (130-400); RDW Coefficient of Variation 14.2 % (11.5-14.5); RDW Standard Deviation 45.1 fL (36.4-46.3); Red Blood Count 4.23 M/uL (4.70-6.10); White Blood Count 3.89 K/ul (4.8-10.8)
[2023-04-01 16:07] LABS: Alanine Aminotransferase 36 U/L (7-52); Albumin Level 3.9 gm/dl (3.4-5.0); Alkaline Phosphatase 119 U/L (34-104); Anion Gap 10 (3-11); Aspartate Aminotransferase 27 U/L (13-39); BUN Creatinine Ratio 17.6 (10-20); Bilirubin,Total 0.6 mg/dl (0.2-1.0); Blood Urea Nitrogen 23 mg/dl (6-23); Calcium 8.6 mg/dl (8.6-10.3); Carbon Dioxide 27 mmol/L (21-32); Chloride 90 mmol/L (98-107); Est GFR (African American) 61.3 ml/min; Est GFR (Non-African American) 52.9 ml/min; Globulin 3.9 gm/dl (2.5-4.0); Glucose 151 mg/dl (70-99(Fasting)); Potassium 4.6 mmol/L (3.5-5.1); Sodium 127 mmol/L (136-145); Total Protein 7.8 gm/dl (6.0-8.3)
[2023-04-01 16:13] LABS: Troponin I High Sensitivity 14.7 pg/ml (0-20)
[2023-04-01 16:19] LABS: Partial Thromboplastin Time 29 Seconds (21-31)
--- NOTE | 2023-04-01 16:33 | Electrocardiogram Report ---
Test Reason : Blood Pressure : / mmHG Vent. Rate : 074 BPM Atrial Rate : 074 BPM P-R Int : 160 ms QRS Dur : 114 ms QT Int : 420 ms P-R-T Axes : 038 -24 061 degrees QTc Int : 466 ms Normal sinus rhythm Old Inferior infarct (cited on or before 12-APR-2021) Old Anterior infarct (cited on or before 12-APR-2021) Abnormal ECG When compared with ECG of 12-APR-2021 14:24, No significant change Confirmed by Alberto Soria ([id number]) on 04/01/2023 4:33:05 PM Referred By: Confirmed By:Alberto Soria
[2023-04-01 16:41] LABS: Adenovirus PCR Not Detected (NotDetected); Bordetella parapertussis PCR Not Detected (NotDetected); Bordetella pertussis PCR Not Detected (NotDetected); Chlamydia pneumoniae PCR Not Detected (NotDetected); Coronavirus 229E PCR Not Detected (NotDetected); Coronavirus CoV-2 (COVID19)PCR Not Detected (NotDetected); Coronavirus HKU1 PCR Not Detected (NotDetected); Coronavirus NL63 PCR Not Detected (NotDetected); Coronavirus OC43PCR Not Detected (NotDetected); Human Metapneumovirus PCR Not Detected (NotDetected); Influenza B PCR Not Detected (NotDetected); Mycoplasma pneumoniae PCR Not Detected (NotDetected); Parainfluenza Virus 1 PCR Not Detected (NotDetected); Parainfluenza Virus 2 PCR Not Detected (NotDetected); Parainfluenza Virus 3 PCR Not Detected (NotDetected); Parainfluenza Virus 4 PCR Not Detected (NotDetected); Respiratory Syncytial VirusPCR Not Detected (NotDetected); Rhinovirus/Enterovirus PCR Not Detected (NotDetected)
[2023-04-01 16:45] LABS: Influenza A (H3) PCR DETECTED (NotDetected)
[2023-04-01] MEDS ORDERED: DOXYCYCLINE HYCLATE 100 MG in DEXTROSE 5% MINI-B 100 ML IV STA (20:37)
--- NOTE | 2023-04-01 20:37 | History & Physical Report ---
Date of Service April 01, 2023 Assessment & Plan (1) Hyponatremia: Plan: Acute on chronic Secondary to influenza illness with superimposed bacterial infection chronic systolic heart failure (EF 40 to 45%, TTE 2019), equivocal volume status given congestion on x-ray with elevated BNP hx CAD hx PSVT hypertension, slightly elevated upon arrival at the ER hyperlipidemia, on statin Rx hx PVD status post stent blindness secondary to occipital CVA focal seizures as per records, patient currently not on AED Rx DM 2 on oral medications, suboptimal control as of hemoglobin A1c of 7.29 March 2021 hypothyroidism, slightly elevated BPH, stable on regimen 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 Ms. Suzanne mcclendon, contact #[phone]. Text document was generated using [employer] voice recognition software. It may contain grammatical or spelling errors. Kindly contact undersigned for clarification of any documentation item in question. History of Present Illness Chief Complaint: Worsening cough, SOB Primary Care Provider: Raysa Hobbs History obtained from patient, family, and records. 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 Last confinement March 2021 for viral gastroenteritis. 1 week history of fever, sinus congestion, and cough symptoms later noted to be productive of yellow sputum. coughing as well. Both patient and have not received seasonal flu vaccine. Patient denies chest pain. Patient breathing noted to be more labored as per patient . Patient brought to ER for evaluation. 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 Allergies Allergy/AdvReac Type Severity Reaction Status Date / Time tramadol [From Ultram] Allergy Severe Seizure Verified 04/01/23 18:30 haloperidol [From Haldol] Allergy Unknown Unknown Verified 04/01/23 18:30 lisinopril AdvReac Cough Unverified 04/01/23 18:30 Home Medications Medication Instructions Recorded Confirmed Type cetirizine 10 mg tablet 10 mg PO DAILY 08/12/19 04/01/23 History escitalopram oxalate 10 mg tablet 10 mg PO QAM 08/12/19 04/01/23 History (Lexapro) finasteride 5 mg tablet 5 mg PO QDL 08/12/19 04/01/23 History albuterol sulfate 2.5 mg/3 mL 2.5 mg inhalation Q4H PRN 04/12/21 04/01/23 History (0.083 %) solution for nebulization Shortness Of Breath Or Wheezing furosemide 20 mg tablet 30 mg PO DAILY 04/12/21 04/01/23 History metoprolol succinate 50 mg 25 mg PO DAILY 04/12/21 04/01/23 History tablet,extended release 24 hr multivitamin 1 tab PO DAILY 04/12/21 04/01/23 History potassium chloride 20 mEq 10 meq PO DAILY 04/12/21 04/01/23 History tablet,extended release acetaminophen 325 mg capsule 975 mg PO TID PRN 01/13/23 04/01/23 History PAIN/FEVER/HEADACHE ascorbic acid (vitamin C) 500 mg 500 mg PO DAILY 01/13/23 04/01/23 History tablet aspirin 325 mg tablet 325 mg PO DAILY 01/13/23 04/01/23 History famotidine 20 mg tablet 20 mg PO BIDM 01/13/23 04/01/23 History ferrous sulfate 325 mg (65 mg 325 mg PO DAILY 01/13/23 04/01/23 History iron) tablet,delayed release metformin 500 mg tablet 0 mg PO BID 01/13/23 04/01/23 History methenamine hippurate 1 gram tablet 1 g PO BID 01/13/23 04/01/23 History tamsulosin 0.4 mg capsule 0.4 mg PO DAILY 01/13/23 04/01/23 History valacyclovir 1 gram tablet 2,000 mg PO DAILY PRN Outbreak 01/13/23 04/01/23 History atorvastatin 80 mg tablet 40 mg PO HS 04/01/23 04/01/23 History levothyroxine 50 mcg tablet 50 mcg PO .DAILY @0600 04/01/23 04/01/23 History Past Med/Surg History Medical History (Updated 04/02/23 @ 11:14 by Tavon Farley MD) Constipation Hearing loss in left ear Obesity NSTEMI (non-ST elevated myocardial infarction) Rib fractures Herpesviral vesicular dermatitis Depression Hypothyroidism Diabetes mellitus, type II MARIELLE (acute kidney injury) Hypomagnesemia Diabetes UTI (urinary tract infection) Paroxysmal SVT (supraventricular tachycardia) Ischemic cardiomyopathy Anemia GERD (gastroesophageal reflux disease) Hypertension Pulmonary edema Acute respiratory failure with hypoxia Cerebral hypoperfusion HLD (hyperlipidemia) CAD (coronary artery disease) Carotid artery occlusion Seizure CVA (cerebrovascular accident) History of common carotid artery stent placement CVA (cerebral vascular accident) CHF (congestive heart failure) Surgical History (Updated 01/13/23 @ 09:32 by Shahnaz Novak RN) Previous back surgery 2019 @ [facility] History of left heart catheterization 1998 100% occlusion circumflex; RCA: 60%; LAD 30-40 and 60-80% distally History of arthroscopic knee surgery History of cataract extraction History of carotid endarterectomy Family History (Updated 01/13/23 @ 09:37 by Shahnaz Novak RN) Father Coronary heart disease Stroke Mother Pulmonary embolism Sister Cancer Breast Sister Cancer Breast cancer Social History (Updated 01/13/23 @ 09:39 by Shahnaz Novak RN) Smoking Status: Never smoker Second Hand Exposure: No; Do You Dip or Chew Tobacco: No; Hx Alcohol Use: No Hx Substance Use: No Preferred Language: Micronesian Communication Ability: Effective Communication Ability Comment: Pt is blind Marketing Operations Associate Required: No Beliefs That Will Affect Care: None marital status: Current Living Situation: Spouse Current Living Situation Comment: LIVES WITH current occupational status: retired 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 Feels Safe at Home: Yes Safety Concerns: Feels Safe At This Time during the past year weight has: remained stable Assistive Devices: Denture - Upper, Walker and Wheelchair Review of Systems Review of Systems: As per HPI, all other systems reviewed and negative Physical Exam Physical Exam: GENERAL: Comfortable, obese, no respiratory distress SKIN: Pallor, warm HEENT: Pale palpebral conjunctivae, no ptosis, dry buccal mucosa, nasal cannula in place NECK : Supple, short neck, no tenderness CHEST : Decreased breath sounds, occasional expiratory wheezes, no tenderness HEART : RRR, no obvious murmurs ABDOMEN: Some distention, nontender EXTREMITIES : Minimal LE swelling, no LE tenderness, no other conspicuous deformities noted NEUROLOGIC : Coherent, no facial asymmetry, gait and stance not assessed Results & Data Results & Data Vital Signs (Past 12 Hours) Vital Signs Temp Pulse Pulse Resp BP BP Pulse Ox 04/01/23 19:56 73 18 159/86 H 96 04/01/23 18:40 70 23 94 04/01/23 18:30 71 20 141/89 H 98 04/01/23 18:30 71 20 98 04/01/23 18:20 71 30 H 99 04/01/23 18:19 73 21 172/79 H 99 04/01/23 18:16 75 04/01/23 18:15 75 18 98 04/01/23 18:15 99 04/01/23 18:15 04/01/23 18:14 172/79 H 04/01/23 15:33 96 04/01/23 14:35 36.3 C L 80 20 120/74 92 O2 Del Method O2 Flow Rate 04/01/23 19:56 Nasal Cannula 2 04/01/23 18:40 04/01/23 18:30 04/01/23 18:30 04/01/23 18:20 04/01/23 18:19 Nasal Cannula 04/01/23 18:16 04/01/23 18:15 04/01/23 18:15 Nasal Cannula 2 04/01/23 18:15 Nasal Cannula 2 04/01/23 18:14 04/01/23 15:33 Nasal Cannula 2 04/01/23 14:35 Room Air Laboratory Results Laboratory Results WBC 3.89 K/ul (4.8-10.8) L 04/01/23 15:26 RBC 4.23 M/uL (4.70-6.10) L 04/01/23 15:26 Hgb 12.5 g/dl (14.0-18.0) L 04/01/23 15:26 Hct 36.5 % (42.0-52.0) L 04/01/23 15:26 MCV 86.3 fL (80.0-100.0) 04/01/23 15: MCH 29.6 pg (25.0-34.0) 04/01/23: MCHC 34.2 g/dL (32.0-36.0) 04/01/23: RDW Std Deviation 45.1 fL (36.4-46.3) 04/01/23: RDW Coeff of Marva 14.2 % (11.5-14.5) 04/01/23: Plt Count 224 K/uL (130-400) 04/01/23: MPV 9.6 fL (9.4-12.4) 04/01/23: Immature Gran % (Auto) 0.5 % 04/01/23: Neut % (Auto) 57.6 % 04/01/23: Lymph % (Auto) 33.2 % 04/01/23: K[place]haw % (Auto) 6.4 % 04/01/23: Eos % (Auto) 1.8 % 04/01/23: Baso % (Auto) 0.5 % 04/01/23: Neut # (Auto) 2.24 K/uL (1.40-6.50) 04/01/23: Lymph # (Auto) 1.29 K/uL (1.20-3.40) 04/01/23: [place]haw # (Auto) 0.25 K/uL (0.11-0.59) 04/01/23: Eos # (Auto) 0.07 K/uL (0.00-0.50) 04/01/23: Baso # (Auto) 0.02 K/uL (0.00-0.20) 04/01/23: Immature Gran # (Auto) 0.02 K/uL (0.01-0.20) 04/01/23: PT 11.0 Seconds (9.0-12.0) 04/01/23: INR 1.0 (0.9-1.1) 04/01/23: APTT 29 Seconds (21-31) 01/11/24 15:26 PTT Ratio 1.0 04/01/23 15:26 Sodium 127 mmol/L (136-145) L 04/01/23 15:26 Potassium 4.6 mmol/L (3.5-5.1) 04/01/23 15:26 Chloride 90 mmol/L (98-107) L 04/01/23 15:26 Carbon Dioxide 27 mmol/L (21-32) 04/01/23 15:26 Anion Gap 10 (3-11) 04/01/23 15:26 BUN 23 mg/dl (6-23) 04/01/23 15:26 Creatinine 1.31 mg/dl (0.6-1.4) 04/01/23 15: Est Cr Clr Drug Dosing Not Reportable 04/01/23 15: Est GFR ( Amer) 61.3 ml/min 04/01/23 15: Est GFR (Non-Af Amer) 52.9 ml/min 04/01/23 15:26 BUN/Creatinine Ratio 17.6 (10-20) 04/01/23 15:26 Glucose 151 mg/dl (70-99(Fasting)) H 04/01/23 15:26 POC Glucose 94 mg/dl (70-99) 04/01/23 20:01 Osmolality 277 mOsm/kg (280-300) L 04/01/23 15:26 Calcium 8.6 mg/dl (8.6-10.3) 04/01/23 15: Total Bilirubin 0.6 mg/dl (0.2-1.0) 04/01/23 15:26 AST 27 U/L (13-39) 04/01/23 15:26 ALT 36 U/L (7-52) 04/01/23 15:26 Alkaline Phosphatase 119 U/L (34-104) H 04/01/23 15:26 Troponin I High Sens 14.7 pg/ml (0-20) 04/01/23 15:26 Total Protein 7.8 gm/dl (6.0-8.3) 04/01/23 15:26 Albumin 3.9 gm/dl (3.4-5.0) 04/01/23 15:26 Globulin 3.9 gm/dl (2.5-4.0) 04/01/23 15: Albumin/Globulin Ratio 1.0 (0.9-2) 04/01/23 15:26 TSH 5.630 uIu/ml (0.300-4.500) H 04/01/23 15:26 Adenovirus (PCR) Not Detected (NotDetected) 04/01/23 Unknown B. pertussis DNA (PCR) Not Detected (NotDetected) 04/01/23 Unknown B.parapertussis DNA PCR Not Detected (NotDetected) 04/01/23 Unknown C. pneumoniae DNA (PCR) Not Detected (NotDetected) 04/01/23 Unknown Coronavirus OC43 (PCR) Not Detected (NotDetected) 04/01/23 Unknown Coronavirus HKU1 (PCR) Not Detected (NotDetected) 04/01/23 Unknown Coronavirus 229E (PCR) Not Detected (NotDetected) 04/01/23 Unknown SARS-CoV-2 (PCR) Not Detected (NotDetected) 04/01/23 Unknown Coronavirus NL63 (PCR) Not Detected (NotDetected) 04/01/23 Unknown Human Metapneumovir PCR Not Detected (NotDetected) 04/01/23 Unknown Influenza A (H3) PCR DETECTED (NotDetected) A* 04/01/23 Unknown Influenza Type B (PCR) Not Detected (NotDetected) 04/01/23 Unknown M. pneumoniae (PCR) Not Detected (NotDetected) 04/01/23 Unknown Parainfluenza 1 (PCR) Not Detected (NotDetected) 04/01/23 Unknown Parainfluenza 2 (PCR) Not Detected (NotDetected) 04/01/23 Unknown Parainfluenza 3 (PCR) Not Detected (NotDetected) 04/01/23 Unknown Parainfluenza 4 (PCR) Not Detected (NotDetected) 04/01/23 Unknown RSV (PCR) Not Detected (NotDetected) 04/01/23 Unknown Entero/Rhino (PCR) Not Detected (NotDetected) 04/01/23 Unknown Impressions Chest X-Ray 04/01/23 14:37 SINGLE VIEW CHEST CLINICAL HISTORY: Dyspnea FINDINGS: An AP upright chest radiograph is compared to study dated 10/16/2019 and correlated with chest CT dated 04/12/2021. The examination is degraded by patient rotation. The heart is enlarged noting atherosclerotic calcification of the thoracic aorta. There is mild pulmonary vascular congestion. Chronic interstitial thickening is similar to previous. There are small pleural effusions with dependent atelectasis. No pneumothorax is seen. The skeletal structures are osteopenic. There are chronic/healed left-sided rib fractures. Postsurgical changes noted in the spine with thoracolumbar spinal rods in place. IMPRESSION: 1. Cardiomegaly with mild pulmonary vascular congestion. 2. Small pleural effusions with dependent atelectasis. ACT 112: Negative or not required by law. Electronically signed by: Dillan Denis M.D. 04/01/2023 3:16 PM Diagnostic Findings EKG as per my interpretation : Rate 75, NSR, LAD, LAFB, inferior/anterior septal infarct, T wave flattening inferior leads
[2023-04-01] MEDS ORDERED: ALBUT/IPRATROP 3MG/0.5MG NEB 3 ML VIAL NEB STA (20:39)
[2023-04-01] MEDS ORDERED: OSELTAMIVIR PHOSPHATE 75 MG CAP PO STA (20:42)
[2023-04-01 20:59] LABS: Appearance Urine Clear (Clear); Bacteria Urine Automated Negative (Negative); Bilirubin Urine Negative (Negative); Blood Urine Negative (Negative); Cast Urine Automated 0 /lpf (0-5); Color Urine Yellow; Epithelial Cell Urine Auto 0-5 /lpf (0-5); Glucose Urine UA Negative (Negative); Ketones Urine Negative (Negative); Leukocyte Esterase Urine Negative (Negative); Nitrite Urine Negative (Negative); Protein Urine 1+ (Negative); RBC Urine Automated 0-4 /hpf (0-4); Specific Gravity Urine 1.006 (1.000-1.030); Urobilinogen Urine Negative (Negative); WBC Urine Automated 0 /hpf (0-5)
[2023-04-01 21:40] LABS: Estimated Average Glucose 166 mg/dl; Hemoglobin A1C 7.4 % (4.5-5.6)
[2023-04-01] MEDS ORDERED: FUROSEMIDE INJ 20 MG/2 ML VIAL IV STA (21:41)
[2023-04-01] MEDS ORDERED: ALBUMIN 25% 12.5 GM/50 ML VIAL IV STA (21:41)
[2023-04-01] MEDS ORDERED: GLUCAGON FOR INJ 1 MG VIAL SQ PRN (22:49)
[2023-04-01] MEDS ORDERED: CARBOHYDRATES FOR HYPOGLYCEMIA PO PRN (22:49)
[2023-04-01] MEDS ORDERED: ACETAMINOPHEN 325 MG TAB PO PRN (22:49)
[2023-04-01] MEDS ORDERED: DEXTROSE 50% 50 ML SYRINGE IV PRN (22:49)
[2023-04-01] MEDS ORDERED: oxyCODONE HCL IR 5 MG TAB (IMMEDIATE RELEASE) PO PRN (22:49)
[2023-04-01] MEDS ORDERED: GLUCOSE 40% GEL 15 GM TUBE PO PRN (22:49)
[2023-04-01] MEDS ORDERED: GLUCOSE 10 TAB/TUBE PO PRN (22:49)
[2023-04-01] MEDS ORDERED: PROMETHAZINE HCL 12.5 MG in SODIUM CHLORIDE 0.9% 50 ML IV PRN (22:49)
--- NOTE | 2023-04-01 23:07 | Emergency Department Note ---
Impression & Plan Acute hyponatremia, Influenza A, Weakness ED Provider Note NAME: NIRAJ GILBERT AGE: 77 SEX: M : 1945 ARRIVES VIA: Walk-In INFORMANT: Patient ED PROVIDER(S): Maximiliano Law DO CHIEF COMPLAINT: Weak, cough HPI: Patient is a 77-year-old male who presents to the ER for weakness. He has had a cough and congestion for the past week. notes that has been short of breath and very rundown. Denies any headache. He has pain in his chest with coughing. No belly pain. No dysuria urgency or frequency. No other exacerbating or remitting factors. ADDITIONAL HISTORY OBTAINED: Per HPI Chronic Medical/Social Conditions Affecting Care: Per HPI PAST MEDICAL HISTORY:See Below PAST SURGICAL HISTORY:See Below FAMILY HISTORY:See Below SOCIAL HISTORY:See Below HOME MEDICATIONS:See Below ALLERGIES:See Below VITALS:See Below PHYSICAL EXAMINATION: GENERAL: Sitting up in bed, alert, ill-appearing, persistent cough EYE EXAM: normal conjunctiva. OROPHARYNX: mucous membranes are moist NECK: supple, no nuchal rigidity, no adenopathy, non-tender LUNGS: Clear to auscultation. Normal chest wall mechanics HEART: no murmurs, S1 normal and S2 normal ABDOMEN: abdomen soft, non-tender, normo-active bowel sounds, no masses, no rebound or guarding. UPPER EXTREMITIES: upper extremities are grossly normal. LOWER EXTREMITIES: No pitting edema. NEURO EXAM: Normal sensorium MEDICAL DECISION MAKING: Patient is a 77-year-old male who presents the ER for the above-stated complaint. IV was established blood work was obtained. Labs show mild leukopenia 3.8 thousand. Mild anemia 12. INR unremarkable. BMP with a hyponatremia 127. LFTs bilirubin was unremarkable. Troponin was negative. TSH of 5.6. UA was clean. Viral panel was positive for influenza which been present for greater than 48 hours. Not a candidate for Tamiflu. Chest x-ray with some pleural effusions. With the hyponatremia weakness discussed case with the hospitalist for further evaluation management treatment. Consults/Care Managements Discussions: Per [facility] Triage Nursing notes reviewed. Limited review of prior medical records performed Vital Signs: reviewed and remarkable for no significant abnormalities Differential diagnosis: Infection, dehydration, metabolic abnormality, hypo/hyperglycemia, electrolyte disturbance, anemia, hypoxia, cardiac sources, intracerebral event, toxicologic, neurologic, as well as other pathologies. ER treatment provided: See below Diagnostics interpreted by me include EKG and cardiac monitoring as listed below: -Cardiac Monitoring: An order was placed for continuous cardiac monitoring. The monitor shows a rate of 80 with sinus rhythm. -ECG: Sinus rhythm rate 74 Inferior Q waves Septal Q waves QTc 466 -Laboratory studies:Interpreted by me as stated above in MDM and shown below. Imaging studies: Xrays: As interpreted by me: Portable AP upright 1 view of the chest shows no large infiltrate CTs show: none Procedures:none Critical Care: None Past Med/Surg History Medical History (Updated 04/01/23 @ 23:07 by Maximiliano Lwa DO) Constipation Hearing loss in left ear Obesity NSTEMI (non-ST elevated myocardial infarction) Rib fractures Herpesviral vesicular dermatitis Depression Hypothyroidism Diabetes mellitus, type II MARIELLE (acute kidney injury) Hypomagnesemia Diabetes UTI (urinary tract infection) Paroxysmal SVT (supraventricular tachycardia) Ischemic cardiomyopathy Anemia GERD (gastroesophageal reflux disease) Hypertension Pulmonary edema Acute respiratory failure with hypoxia Cerebral hypoperfusion HLD (hyperlipidemia) CAD (coronary artery disease) Carotid artery occlusion Seizure CVA (cerebrovascular accident) History of common carotid artery stent placement CVA (cerebral vascular accident) CHF (congestive heart failure) Surgical History (Updated 01/13/23 @ 09:32 by Shahnaz Novak RN) Previous back surgery 2019 @ [facility] History of left heart catheterization 1998 100% occlusion circumflex; RCA: 60%; LAD 30-40 and 60-80% distally History of arthroscopic knee surgery History of cataract extraction History of carotid endarterectomy Family History (Updated 01/13/23 @ 09:37 by Shahnaz Novak RN) Father Coronary heart disease Stroke Mother Pulmonary embolism Sister Cancer Breast Sister Cancer Breast cancer Social History (Updated 01/13/23 @ 09:39 by Shahnaz Novak RN) Smoking Status: Never smoker Second Hand Exposure: No; Do You Dip or Chew Tobacco: No; Hx Alcohol Use: No Hx Substance Use: No Preferred Language: [place] Communication Ability: Effective Communication Ability Comment: Pt is blind 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 Inventory Merchandising Required: No Beliefs That Will Affect Care: None marital status: Current Living Situation: Spouse Current Living Situation Comment: LIVES WITH current occupational status: retired 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 Feels Safe at Home: Yes during the past year weight has: remained stable Assistive Devices: Denture - Upper, Nebulizer, Walker and Wheelchair Allergies Allergies Allergy/AdvReac Type Severity Reaction Status Date / Time tramadol [From Ultram] Allergy Severe Seizure Verified 04/01/23 18:30 haloperidol [From Haldol] Allergy Unknown Unknown Verified 04/01/23 18:30 lisinopril AdvReac Cough Unverified 04/01/23 18:30 Home Meds Home Medications Medication Instructions Recorded Confirmed cetirizine 10 mg tablet 10 mg PO DAILY 08/12/19 04/01/23 escitalopram oxalate 10 mg tablet 10 mg PO QAM 08/12/19 04/01/23 (Lexapro) finasteride 5 mg tablet 5 mg PO QDL 08/12/19 04/01/23 albuterol sulfate 2.5 mg/3 mL 2.5 mg inhalation Q4H PRN 04/12/21 04/01/23 (0.083 %) solution for nebulization Shortness Of Breath Or Wheezing furosemide 20 mg tablet 30 mg PO DAILY 04/12/21 04/01/23 metoprolol succinate 50 mg 25 mg PO DAILY 04/12/21 04/01/23 tablet,extended release 24 hr multivitamin 1 tab PO DAILY 04/12/21 04/01/23 potassium chloride 20 mEq 10 meq PO DAILY 04/12/21 04/01/23 tablet,extended release acetaminophen 325 mg capsule 975 mg PO TID PRN 01/13/23 04/01/23 PAIN/FEVER/HEADACHE ascorbic acid (vitamin C) 500 mg 500 mg PO DAILY 01/13/23 04/01/23 tablet aspirin 325 mg tablet 325 mg PO DAILY 01/13/23 04/01/23 famotidine 20 mg tablet 20 mg PO BIDM 01/13/23 04/01/23 ferrous sulfate 325 mg (65 mg 325 mg PO DAILY 01/13/23 04/01/23 iron) tablet,delayed release metformin 500 mg tablet 0 mg PO BID 01/13/23 04/01/23 methenamine hippurate 1 gram tablet 1 g PO BID 01/13/23 04/01/23 tamsulosin 0.4 mg capsule 0.4 mg PO DAILY 01/13/23 04/01/23 valacyclovir 1 gram tablet 2,000 mg PO DAILY PRN Outbreak 01/13/23 04/01/23 atorvastatin 80 mg tablet 40 mg PO HS 04/01/23 04/01/23 levothyroxine 50 mcg tablet 50 mcg PO .DAILY @0600 04/01/23 04/01/23 Results & Data (ED) Vital Signs Vital Signs - 24 hr 04/01/23 14:35 04/01/23 15:33 04/01/23 18:14 Temperature 36.3 C L Temperature Source Oral Pulse Rate 80 Pulse Rate [Finger] Pulse Rate from SpO2 Sensor Respiratory Rate 20 Respiratory Effort / Characteristics Respiratory Depth Normal Respiratory Pattern Regular Blood Pressure 120/74 172/79 H Blood Pressure [Left Arm] Blood Pressure Mean 89 118 Blood Pressure Mean [Left Arm] Blood Pressure Position [Left Arm] Pulse Oximetry 92 96 Oxygen Delivery Method Room Air Nasal Cannula Oxygen Flow Rate 2 Sepsis Recent Fever Within 48 Hours No Sepsis New/Unexplained Change in Mental Status No Sepsis Action Taken by Nursing No Action Required 04/01/23 18:15 04/01/23 18:15 04/01/23 18:15 Temperature Temperature Source Pulse Rate 75 Pulse Rate [Finger] Pulse Rate from SpO2 Sensor 75 Respiratory Rate 18 Respiratory Effort / Characteristics Respiratory Depth Respiratory Pattern Blood Pressure Blood Pressure [Left Arm] Blood Pressure Mean Blood Pressure Mean [Left Arm] Blood Pressure Position [Left Arm] Pulse Oximetry 99 98 Oxygen Delivery Method Nasal Cannula Nasal Cannula Oxygen Flow Rate 2 2 Sepsis Recent Fever Within 48 Hours Sepsis New/Unexplained Change in Mental Status Sepsis Action Taken by Nursing 04/01/23 18:16 04/01/23 18:19 04/01/23 18:20 Temperature Temperature Source Pulse Rate 75 71 Pulse Rate [Finger] 73 Pulse Rate from SpO2 Sensor 71 Respiratory Rate 21 30 H Respiratory Effort / Characteristics Respiratory Depth Respiratory Pattern Blood Pressure Blood Pressure [Left Arm] 172/79 H Blood Pressure Mean Blood Pressure Mean [Left Arm] 110 Blood Pressure Position [Left Arm] Pulse Oximetry 99 99 Oxygen Delivery Method Nasal Cannula Oxygen Flow Rate Sepsis Recent Fever Within 48 Hours Sepsis New/Unexplained Change in Mental Status Sepsis Action Taken by Nursing 04/01/23 18:30 04/01/23 18:30 04/01/23 18:40 Temperature Temperature Source Pulse Rate 71 71 70 Pulse Rate [Finger] Pulse Rate from SpO2 Sensor 70 70 Respiratory Rate 20 20 23 Respiratory Effort / Characteristics Respiratory Depth Respiratory Pattern Blood Pressure 141/89 H Blood Pressure [Left Arm] Blood Pressure Mean 113 Blood Pressure Mean [Left Arm] Blood Pressure Position [Left Arm] Pulse Oximetry 98 98 94 Oxygen Delivery Method Oxygen Flow Rate Sepsis Recent Fever Within 48 Hours Sepsis New/Unexplained Change in Mental Status Sepsis Action Taken by Nursing 04/01/23 19:56 Temperature Temperature Source Pulse Rate Pulse Rate [Finger] 73 Pulse Rate from SpO2 Sensor Respiratory Rate 18 Respiratory Effort / Characteristics Non-Labored Respiratory Depth Normal Respiratory Pattern Blood Pressure Blood Pressure [Left Arm] 159/86 H Blood Pressure Mean Blood Pressure Mean [Left Arm] 110 Blood Pressure Position [Left Arm] Lying Pulse Oximetry 96 Oxygen Delivery Method Nasal Cannula Oxygen Flow Rate 2 Sepsis Recent Fever Within 48 Hours Sepsis New/Unexplained Change in Mental Status Sepsis Action Taken by Nursing Laboratory Data 04/01/23 15:26 04/01/23 15:26 Lab Results 04/01/23 04/01/23 04/01/23 Range/Units 15:26 20:00 20:01 WBC 3.89 L (4.8-10.8) K/ul RBC 4.23 L (4.70-6.10) M/uL Hgb 12.5 L (14.0-18.0) g/dl Hct 36.5 L (42.0-52.0) % MCV 86.3 (80.0-100.0) fL MCH 29.6 (25.0-34.0) pg MCHC 34.2 (32.0-36.0) g/dL RDW Std Deviation 45.1 (36.4-46.3) fL RDW Coeff of Marva 14.2 (11.5-14.5) % Plt Count 224 (130-400) K/uL MPV 9.6 (9.4-12.4) fL Immature Gran % (Auto) 0.5 % Neut % (Auto) 57.6 % Lymph % (Auto) 33.2 % [place] % (Auto) 6.4 % Eos % (Auto) 1.8 % Baso % (Auto) 0.5 % Neut # (Auto) 2.24 (1.40-6.50) K/uL Lymph # (Auto) 1.29 (1.20-3.40) K/uL [place] # (Auto) 0.25 (0.11-0.59) K/uL Eos # (Auto) 0.07 (0.00-0.50) K/uL Baso # (Auto) 0.02 (0.00-0.20) K/uL Immature Gran # (Auto) 0.02 (0.01-0.20) K/uL PT 11.0 (9.0-12.0) Seconds INR 1.0 (0.9-1.1) APTT 29 (21-31) Seconds PTT Ratio 1.0 Sodium 127 L (136-145) mmol/L Potassium 4.6 (3.5-5.1) mmol/L Chloride 90 L (98-107) mmol/L Carbon Dioxide 27 (21-32) mmol/L Anion Gap 10 (3-11) BUN 23 (6-23) mg/dl Creatinine 1.31 (0.6-1.4) mg/dl Est Cr Clr Drug Dosing Not Reportable Est GFR ( Amer) 61.3 ml/min Est GFR (Non-Af Amer) 52.9 ml/min BUN/Creatinine Ratio 17.6 (10-20) Glucose 151 H (70-99(Fasting)) mg/dl POC Glucose 94 (70-99) mg/dl Estimat Average Glucose 166 mg/dl Hemoglobin A1c 7.4 H (4.5-5.6) % Osmolality 277 L (280-300) mOsm/kg Calcium 8.6 (8.6-10.3) mg/dl Total Bilirubin 0.6 (0.2-1.0) mg/dl AST 27 (13-39) U/L ALT 36 (7-52) U/L Alkaline Phosphatase 119 H (34-104) U/L Troponin I High Sens 14.7 (0-20) pg/ml Total Protein 7.8 (6.0-8.3) gm/dl Albumin 3.9 (3.4-5.0) gm/dl Globulin 3.9 (2.5-4.0) gm/dl Albumin/Globulin Ratio 1.0 (0.9-2) TSH 5.630 H (0.300-4.500) uIu/ml Free T4 1.20 (0.61-1.60) ng/dl Urine Color Yellow Urine Appearance Clear (Clear) Urine pH 6.0 (4.5-7.5) Ur Specific [place] 1.006 (1.000-1.030) Urine Protein 1+ H (Negative) Urine Glucose (UA) Negative (Negative) Urine Ketones Negative (Negative) Urine Blood Negative (Negative) Urine Nitrite Negative (Negative) Urine Bilirubin Negative (Negative) Urine Urobilinogen Negative (Negative) Ur Leukocyte Esterase Negative (Negative) Urine WBC (Auto) 0 (0-5) /hpf Urine RBC (Auto) 0-4 (0-4) /hpf U Hyaline Cast (Auto) 0 (0-5) /lpf U Epithel Cells (Auto) 0-5 (0-5) /lpf Urine Bacteria (Auto) Negative (Negative) Administered Medications Discontinued Medications Albuterol (Albut/Ipratrop 3mg/0.5mg Neb 3 Ml Vial) 3 ml NEB NOW STA; Protocol Stop: 04/01/23 20:40 Last Admin: 04/01/23 21:09 Dose: 3 ml Documented By: DIEGO Furosemide (Furosemide Inj 20 Mg/2 Ml Vial) 20 mg IV ONE STA Stop: 04/01/23 21:42 Last Admin: 04/01/23 21:56 Dose: 20 mg Documented By: DIEGO Doxycycline Hyclate 100 mg/ (Dextrose) 100 mls @ 50 mls/hr IV NOW STA Stop: 04/01/23 22:36 Last Admin: 04/01/23 21:09 Dose: 50 mls/hr Documented By: DIEGO Albumin Human (Albumin 25%) 12.5 gm in 50 mls @ 50 mls/hr IV ONE STA Stop: 04/01/23 22:40 Last Infusion: 04/01/23 21:57 Dose: 0 mls/hr Documented By: Admin: 04/01/23 21:56 Dose: 50 mls/hr Documented By: DIEGO Oseltamivir Phosphate (Oseltamivir Phosphate 75 Mg Cap) 75 mg PO NOW STA; Protocol Stop: 04/01/23 20:43 Last Admin: 04/01/23 21:09 Dose: 75 mg Documented By: DIEGO Imaging Data Radiologist's Impression: Chest X-Ray 04/01/23 14:37 SINGLE VIEW CHEST CLINICAL HISTORY: Dyspnea FINDINGS: An AP upright chest radiograph is compared to study dated 10/16/2019 and correlated with chest CT dated 04/12/2021. The examination is degraded by patient rotation. The heart is enlarged noting atherosclerotic calcification of the thoracic aorta. There is mild pulmonary vascular congestion. Chronic interstitial thickening is similar to previous. There are small pleural effusions with dependent atelectasis. No pneumothorax is seen. The skeletal structures are osteopenic. There are chronic/healed left-sided rib fractures. Postsurgical changes noted in the spine with thoracolumbar spinal rods in place. IMPRESSION: 1. Cardiomegaly with mild pulmonary vascular congestion. 2. Small pleural effusions with dependent atelectasis. ACT 112: Negative or not required by law. Electronically signed by: Dillan Denis M.D. 04/01/2023 3:16 PM Discharge Plan Visit Data Chief Complaint: Shortness of Breath/Dyspnea Stated Complaint: SOB ED Provider: Maximiliano Law Discharge Problem: Acute hyponatremia, Influenza A, Weakness Discharge Instructions Interventions: ED Discharge Assessment Last Done: 04/01/23 22:49
[2023-04-02] MEDS: METHENAMINE HIPPURATE 1 GM TAB PO SCH ×3 (00:01→21:06)
[2023-04-02] MEDS: ATORVASTATIN 40 MG TAB PO SCH ×2 (00:01→21:06)
[2023-04-02] MEDS: INSULIN ASPART PER UNIT CHARGE SC SCH ×5 (00:10→20:51)
[2023-04-02] MEDS ORDERED: MELATONIN 3 MG TAB PO PRN (01:40)
[2023-04-02 05:20] LABS: Basophils # (auto) 0.02 K/uL (0.00-0.20); Basophils % (auto) 0.5 %; Eosinophils # (auto) 0.11 K/uL (0.00-0.50); Eosinophils % (auto) 2.5 %; Hematocrit (blood only) 33.4 % (42.0-52.0); Hemoglobin 11.3 g/dl (14.0-18.0); Immature Granulocytes # (auto) 0.01 K/uL (0.01-0.20); Immature Granulocytes % (auto) 0.2 %; Lymphocytes # (auto) 2.07 K/uL (1.20-3.40); Lymphocytes % (auto) 47.7 %; Mean Corpuscular Hemoglobin 29.1 pg (25.0-34.0); Mean Corpuscular Hgb Conc 33.8 g/dL (32.0-36.0); Mean Corpuscular Volume 86.1 fL (80.0-100.0); Mean Platelet Volume 9.5 fL (9.4-12.4); Monocytes # (auto) 0.34 K/uL (0.11-0.59); Monocytes % (auto) 7.8 %; Neutrophils # (auto) 1.79 K/uL (1.40-6.50); Neutrophils % (auto) 41.3 %; Platelet Count 203 K/uL (130-400); RDW Standard Deviation 44.1 fL (36.4-46.3); Red Blood Count 3.88 M/uL (4.70-6.10); White Blood Count 4.34 K/ul (4.8-10.8)
[2023-04-02 05:39] LABS: Calcium 8.5 mg/dl (8.6-10.3); Potassium 4.2 mmol/L (3.5-5.1)
[2023-04-02 05:45] LABS: Creatinine Clr Calc Pharmacy 59.8 ml/min; Est GFR (African American) 56.1 ml/min; Est GFR (Non-African American) 48.4 ml/min
[2023-04-02] MEDS: LEVOTHYROXINE SODIUM 50 MCG TABLET PO SCH (10:03)
[2023-04-02] MEDS: FAMOTIDINE 20 MG TAB PO SCH ×2 (10:03→17:55)
[2023-04-02] MEDS: MULTIVITAMIN TAB PO SCH (10:03)
[2023-04-02] MEDS: TAMSULOSIN HCL 0.4 MG CAP PO SCH (10:03)
[2023-04-02] MEDS: OSELTAMIVIR PHOSPHATE 75 MG CAP PO SCH ×2 (10:03→21:05)
[2023-04-02] MEDS: METOPROLOL SUCC 25MG EXT REL TAB PO SCH (10:04)
[2023-04-02] MEDS: CETIRIZINE HCL 10 MG TABLET PO SCH (10:04)
[2023-04-02] MEDS: ENOXAPARIN INJ 40 MG/0.4 ML SYR SQ SCH (10:04)
[2023-04-02] MEDS: DOXYCYCLINE HYCLATE 100 MG CAP PO SCH ×2 (10:04→21:05)
[2023-04-02] MEDS: ESCITALOPRAM OXALATE 10 MG TAB PO SCH (10:04)
[2023-04-02] MEDS: FERROUS SULFATE 325 MG TAB PO SCH (10:04)
[2023-04-02] MEDS: ASPIRIN 325 MG ECTAB PO SCH (10:04)
[2023-04-02] MEDS: LANTUS PER UNIT CHARGE SQ SCH (10:14)
[2023-04-02] MEDS: FINASTERIDE 5 MG TAB PO SCH (13:14)
--- NOTE | 2023-04-02 19:12 | Hospitalist Progress Note ---
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 Acute hypoxic respiratory failure Influenza Acute on chronic CHF Pt with increased oxygen need initially Biofire positive for influenza A Chest XRAY with noted cardiomegaly and small pleural effusions BNP elevated at 218 Echo 2019 noted EF 40 to 45%, TTE 2019 Repeat echo ordered and pending Received a dose of Lasix in the ED Continue with IV Lasix 40mg daily Continue with tamiflu BID Continue with doxycycline for complicated bronchitis picture Duonebs prn, scheduled mucinex percussive vest therapy Oxygen supplementation as needed, wean as tolerated Possible exacerbation of CHF in setting of acute flu infection Daily weights, strict Is &Os Consider cardiology consult Hyponatremia Sodium 127 on admission Received 1 dose of IV Lasix 20mg in the ED Held off on further doses, sodium 131 on 04/02 Improving hx CAD hx PSVT hx PVD status post stent EKG with NSR hs-trop of 14.7 Stable hypertension Continue home metoprolol Currently controlled hyperlipidemia Continue on statin Rx 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 Ms. Suzanne mcclendon, contact #[phone]. Admission and Anticipated Discharge Date Admission Date: April 01, 2023 Subjective Pt was seen while still down in the emergency room. States that he is blind. States that he "cant get his breath right" Notes that he has lots of "gurgling" and cannot seem to cough it up. States symptoms started Wednesday. Notes difficulty with urinating. Review of Systems Review of Systems: All systems reviewed & are unremarkable except as noted in Subjective Physical Exam Physical Exam: General: Alert, oriented. No acute distress Psych: Appropriate mood and affect Neuro: cannot see HEENT: NC/AT Chest: Nontender to palpation. CV: RRR Resp: Breath sounds coarse bilaterally, no increased effort of breathing.Some wheezing appreciated Abdomen: Soft, nontender, nondistended. Extremities: edema in lower extremities bilaterally. Results & Data Results & Data Vital Signs (Past 12 Hours) Vital Signs Temp Pulse Pulse Resp BP BP Pulse Ox 04/02/23 14:15 100 04/02/23 13:55 04/02/23 12:15 36.8 C 70 18 152/72 H 98 04/02/23 10:00 04/02/23 09:00 73 12 147/83 H 94 04/02/23 08:00 72 12 114/71 93 04/02/23 07:42 79 04/02/23 07:00 85 21 174/99 H 92 04/02/23 06:00 72 19 123/75 95 04/02/23 05:00 75 18 138/97 96 04/02/23 04:00 74 20 110/66 96 O2 Del Method O2 Flow Rate 04/02/23 14:15 04/02/23 13:55 Nasal Cannula 2 04/02/23 12:15 Nasal Cannula 2 04/02/23 10:00 Nasal Cannula 2 04/02/23 09:00 04/02/23 08:00 04/02/23 07:42 04/02/23 07:00 04/02/23 06:00 Nasal Cannula 2 04/02/23 05:00 Nasal Cannula 2 04/02/23 04:00 Nasal Cannula 2
[2023-04-02] MEDS ORDERED: ALBUMIN 25% 25 GM/100 ML VIAL IV ONE (19:26)
[2023-04-02] MEDS: guaiFENesin 600 MG TABCR PO SCH (21:04)
[2023-04-03] MEDS: LEVOTHYROXINE SODIUM 50 MCG TABLET PO SCH (06:36)
[2023-04-03 06:52] LABS: Basophils # (auto) 0.02 K/uL (0.00-0.20); Basophils % (auto) 0.5 %; Eosinophils # (auto) 0.12 K/uL (0.00-0.50); Eosinophils % (auto) 2.7 %; Hematocrit (blood only) 33.9 % (42.0-52.0); Immature Granulocytes # (auto) 0.01 K/uL (0.01-0.20); Immature Granulocytes % (auto) 0.2 %; Lymphocytes # (auto) 2.07 K/uL (1.20-3.40); Lymphocytes % (auto) 46.8 %; Mean Corpuscular Hemoglobin 29.1 pg (25.0-34.0); Mean Corpuscular Hgb Conc 32.4 g/dL (32.0-36.0); Mean Corpuscular Volume 89.7 fL (80.0-100.0); Mean Platelet Volume 9.6 fL (9.4-12.4); Monocytes # (auto) 0.34 K/uL (0.11-0.59); Monocytes % (auto) 7.7 %; Neutrophils # (auto) 1.86 K/uL (1.40-6.50); Neutrophils % (auto) 42.1 %; Platelet Count 220 K/uL (130-400); RDW Coefficient of Variation 14.1 % (11.5-14.5); RDW Standard Deviation 46.2 fL (36.4-46.3); Red Blood Count 3.78 M/uL (4.70-6.10); White Blood Count 4.42 K/ul (4.8-10.8)
[2023-04-03 07:11] LABS: Albumin Globulin Ratio 1.2 (0.9-2); Albumin Level 3.8 gm/dl (3.4-5.0); BUN Creatinine Ratio 16.7 (10-20); Bilirubin,Total 0.5 mg/dl (0.2-1.0); Calcium 8.8 mg/dl (8.6-10.3); Creatinine Clr Calc Pharmacy 63.8 ml/min; Est GFR (African American) 60.7 ml/min; Est GFR (Non-African American) 52.4 ml/min; Globulin 3.2 gm/dl (2.5-4.0); Magnesium 1.8 mg/dl (1.7-2.4); Phosphorus 3.2 mg/dl (2.5-4.9)
[2023-04-03] MEDS: CETIRIZINE HCL 10 MG TABLET PO SCH (08:47)
[2023-04-03] MEDS: ESCITALOPRAM OXALATE 10 MG TAB PO SCH (08:47)
[2023-04-03] MEDS: METOPROLOL SUCC 25MG EXT REL TAB PO SCH (08:47)
[2023-04-03] MEDS: FERROUS SULFATE 325 MG TAB PO SCH (08:47)
[2023-04-03] MEDS: TAMSULOSIN HCL 0.4 MG CAP PO SCH (08:47)
[2023-04-03] MEDS: FAMOTIDINE 20 MG TAB PO SCH ×2 (08:47→18:15)
[2023-04-03] MEDS: ASPIRIN 325 MG ECTAB PO SCH (08:47)
[2023-04-03] MEDS: MULTIVITAMIN TAB PO SCH (08:47)
[2023-04-03] MEDS: METHENAMINE HIPPURATE 1 GM TAB PO SCH ×2 (08:47→20:27)
[2023-04-03] MEDS: guaiFENesin 600 MG TABCR PO SCH ×2 (08:48→20:29)
[2023-04-03] MEDS: ENOXAPARIN INJ 40 MG/0.4 ML SYR SQ SCH (08:48)
[2023-04-03] MEDS: OSELTAMIVIR PHOSPHATE 75 MG CAP PO SCH ×2 (08:48→20:26)
[2023-04-03] MEDS: DOXYCYCLINE HYCLATE 100 MG CAP PO SCH ×2 (08:48→20:28)
[2023-04-03] MEDS: LANTUS PER UNIT CHARGE SQ SCH (09:42)
[2023-04-03] MEDS: INSULIN ASPART PER UNIT CHARGE SC SCH ×4 (09:42→23:04)
[2023-04-03] MEDS ORDERED: GLYCERIN ADULT 12 SUPP/BOX SUPP PR ONE (11:09)
[2023-04-03] MEDS: FINASTERIDE 5 MG TAB PO SCH (12:07)
[2023-04-03] MEDS: POLYETHYLENE (MIRALAX) 17 GM PACK PO PRN (13:41)
[2023-04-03] MEDS: ATORVASTATIN 40 MG TAB PO SCH (20:29)
[2023-04-03] MEDS ORDERED: ALBUT/IPRATROP 3MG/0.5MG NEB 3 ML VIAL NEB PRN (22:16)
[2023-04-03] MEDS ORDERED: GLYCERIN ADULT 12 SUPP/BOX SUPP PR PRN (22:24)
--- NOTE | 2023-04-03 22:24 | Hospitalist Progress Note ---
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 Acute hypoxic respiratory failure Influenza Acute on chronic CHF Pt with increased oxygen need initially Biofire positive for influenza A Chest XRAY with noted cardiomegaly and small pleural effusions BNP elevated at 218 Echo 2019 noted EF 40 to 45%, TTE 2019 Repeat echo ordered and pending Received a dose of Lasix in the ED Continue with IV Lasix 40mg daily Continue with tamiflu BID Continue with doxycycline for complicated bronchitis picture Duonebs prn, scheduled mucinex percussive vest therapy Oxygen supplementation as needed, wean as tolerated Possible exacerbation of CHF in setting of acute flu infection Daily weights, strict Is &Os Consider cardiology consult Hyponatremia Sodium 127 on admission Received 1 dose of IV Lasix 20mg in the ED Held off on further doses, sodium 131 on 04/02 Improving MARIELLE Cr elevated to 1.4 yesterday Currently wnl Avoid nephrotoxic meds and contrast Continue to monitor hx CAD hx PSVT hx PVD status post stent EKG with NSR hs-trop of 14.7 Stable hypertension Continue home metoprolol Currently controlled hyperlipidemia Continue on statin Rx 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 Ms. Suzanne mcclendon, contact #[phone]. Admission and Anticipated Discharge Date Admission Date: April 01, 2023 Subjective States biggest problem today is constipation. Asking for suppository. States he does not want the phone near him. Review of Systems Review of Systems: All systems reviewed & are unremarkable except as noted in Subjective Physical Exam Physical Exam: General: Alert, oriented. No acute distress Psych: Appropriate mood and affect Neuro: cannot see HEENT: NC/AT Chest: Nontender to palpation. CV: RRR Resp: Breath sounds coarse bilaterally, no increased effort of breathing.Some wheezing appreciated Abdomen: Soft, nontender, nondistended. Extremities: edema in lower extremities bilaterally. Results & Data Results & Data Vital Signs (Past 12 Hours) Vital Signs Temp Pulse Pulse Resp BP Pulse Ox O2 Del Method 04/03/23 11:55 36.6 C 75 18 144/77 H 99 Nasal Cannula 04/03/23 11:27 Nasal Cannula 04/03/23 08:33 66 04/03/23 07:58 36.5 C 68 16 133/73 98 Nasal Cannula 04/03/23 03:12 36.6 C 70 18 100/63 97 Nasal Cannula O2 Flow Rate 04/03/23 11:55 2 04/03/23 11:27 2 04/03/23 08:33 04/03/23 07:58 2 04/03/23 03:12 2
[2023-04-03] MEDS: FUROSEMIDE 40 MG/4 ML VIAL IV SCH (23:12)
[2023-04-04] MEDS: LEVOTHYROXINE SODIUM 50 MCG TABLET PO SCH (05:38)
[2023-04-04 07:02] LABS: Basophils # (auto) 0.02 K/uL (0.00-0.20); Basophils % (auto) 0.4 %; Eosinophils # (auto) 0.16 K/uL (0.00-0.50); Eosinophils % (auto) 2.9 %; Hematocrit (blood only) 34.1 % (42.0-52.0); Hemoglobin 11.4 g/dl (14.0-18.0); Immature Granulocytes # (auto) 0.02 K/uL (0.01-0.20); Immature Granulocytes % (auto) 0.4 %; Lymphocytes # (auto) 2.07 K/uL (1.20-3.40); Lymphocytes % (auto) 38.1 %; Mean Corpuscular Hemoglobin 29.3 pg (25.0-34.0); Mean Corpuscular Hgb Conc 33.4 g/dL (32.0-36.0); Mean Corpuscular Volume 87.7 fL (80.0-100.0); Mean Platelet Volume 9.8 fL (9.4-12.4); Monocytes # (auto) 0.39 K/uL (0.11-0.59); Monocytes % (auto) 7.2 %; Neutrophils # (auto) 2.77 K/uL (1.40-6.50); Platelet Count 241 K/uL (130-400); RDW Coefficient of Variation 13.9 % (11.5-14.5); RDW Standard Deviation 44.6 fL (36.4-46.3); Red Blood Count 3.89 M/uL (4.70-6.10); White Blood Count 5.43 K/ul (4.8-10.8)
[2023-04-04 07:14] LABS: Albumin Globulin Ratio 1.2 (0.9-2); Albumin Level 3.8 gm/dl (3.4-5.0); BUN Creatinine Ratio 15.6 (10-20); Bilirubin,Total 0.5 mg/dl (0.2-1.0); Creatinine Clr Calc Pharmacy 65.4 ml/min; Est GFR (Non-African American) 54.4 ml/min; Globulin 3.3 gm/dl (2.5-4.0); Magnesium 1.7 mg/dl (1.7-2.4); Phosphorus 3.2 mg/dl (2.5-4.9); Total Protein 7.1 gm/dl (6.0-8.3)
[2023-04-04] MEDS: INSULIN ASPART PER UNIT CHARGE SC SCH ×4 (09:20→21:00)
[2023-04-04] MEDS: guaiFENesin 600 MG TABCR PO SCH ×2 (09:21→20:06)
[2023-04-04] MEDS: ESCITALOPRAM OXALATE 10 MG TAB PO SCH (09:21)
[2023-04-04] MEDS: FUROSEMIDE 40 MG/4 ML VIAL IV SCH (09:21)
[2023-04-04] MEDS: TAMSULOSIN HCL 0.4 MG CAP PO SCH (09:22)
[2023-04-04] MEDS: ENOXAPARIN INJ 40 MG/0.4 ML SYR SQ SCH (09:22)
[2023-04-04] MEDS: METHENAMINE HIPPURATE 1 GM TAB PO SCH ×2 (09:23→20:04)
[2023-04-04] MEDS: FAMOTIDINE 20 MG TAB PO SCH ×2 (09:23→17:55)
[2023-04-04] MEDS: CETIRIZINE HCL 10 MG TABLET PO SCH (09:23)
[2023-04-04] MEDS: METOPROLOL SUCC 25MG EXT REL TAB PO SCH (09:23)
[2023-04-04] MEDS: ASPIRIN 325 MG ECTAB PO SCH (09:23)
[2023-04-04] MEDS: MULTIVITAMIN TAB PO SCH (09:23)
[2023-04-04] MEDS: DOXYCYCLINE HYCLATE 100 MG CAP PO SCH ×2 (09:24→20:06)
[2023-04-04] MEDS: FERROUS SULFATE 325 MG TAB PO SCH (09:24)
[2023-04-04] MEDS: OSELTAMIVIR PHOSPHATE 75 MG CAP PO SCH ×2 (09:24→20:06)
[2023-04-04] MEDS: LANTUS PER UNIT CHARGE SQ SCH (09:29)
[2023-04-04] MEDS: FINASTERIDE 5 MG TAB PO SCH (11:01)
--- NOTE | 2023-04-04 15:29 | Hospitalist Progress Note ---
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 Acute hypoxic respiratory failure Influenza Acute on chronic CHF Pt with increased oxygen need initially Biofire positive for influenza A Chest XRAY with noted cardiomegaly and small pleural effusions BNP elevated at 218 Echo 2019 noted EF 40 to 45%, TTE 2019 Repeat echo ordered and completed, awaiting read Received a dose of Lasix in the ED Continue with IV Lasix 40mg daily, holding home po dose Continue with tamiflu BID Continue with doxycycline for complicated bronchitis picture Duonebs prn, scheduled mucinex percussive vest therapy Oxygen supplementation as needed, wean as tolerated Possible exacerbation of CHF in setting of acute flu infection Daily weights, strict Is &Os Consider cardiology consult Hyponatremia Sodium 127 on admission Improving, sodium 134 currently Continue to monitor MARIELLE Cr elevated to 1.4 on 04/02 Currently wnl On IV Lasix as noted above, continue to monitor kidney function Avoid other nephrotoxic meds and contrast Continue to monitor hx CAD hx PSVT hx PVD status post stent EKG with NSR hs-trop of 14.7 Stable hypertension Continue home metoprolol Currently controlled hyperlipidemia Continue on statin Rx 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 Ms. Suzanne mcclendon, contact #[phone]. Admission and Anticipated Discharge Date Admission Date: April 01, 2023 Subjective Pt was seen sleeping in bed. Upon awakening stated that he was feeling much better. Still has not had a BM. Review of Systems Review of Systems: All systems reviewed & are unremarkable except as noted in Subjective Physical Exam Physical Exam: General: Alert, oriented. No acute distress Psych: Appropriate mood and affect Neuro: cannot see HEENT: NC/AT Chest: Nontender to palpation. CV: RRR Resp: Breath sounds coarse bilaterally, no increased effort of breathing.Some wheezing appreciated Abdomen: Soft, nontender, nondistended. Extremities: edema in lower extremities bilaterally. Results & Data Results & Data Vital Signs (Past 12 Hours) Vital Signs Temp Pulse Pulse Resp BP Pulse Ox O2 Del Method 04/04/23 12:37 36.5 C 69 17 135/68 95 Nasal Cannula 04/04/23 10:54 Nasal Cannula 04/04/23 08:09 36.5 C 69 19 131/77 98 Nasal Cannula 04/04/23 07:16 67 04/04/23 03:03 36.6 C 73 18 138/76 94 Room Air 04/04/23 01:22 Nasal Cannula O2 Flow Rate 04/04/23 12:37 2 04/04/23 10:54 2 04/04/23 08:09 2 04/04/23 07:16 04/04/23 03:03 04/04/23 01:22 2
[2023-04-04] MEDS: ATORVASTATIN 40 MG TAB PO SCH (20:05)
[2023-04-05] MEDS: LEVOTHYROXINE SODIUM 50 MCG TABLET PO SCH (05:28)
[2023-04-05 06:45] LABS: Basophils # (auto) 0.03 K/uL (0.00-0.20); Basophils % (auto) 0.5 %; Eosinophils # (auto) 0.18 K/uL (0.00-0.50); Eosinophils % (auto) 2.9 %; Hematocrit (blood only) 35.8 % (42.0-52.0); Immature Granulocytes # (auto) 0.03 K/uL (0.01-0.20); Immature Granulocytes % (auto) 0.5 %; Lymphocytes # (auto) 1.98 K/uL (1.20-3.40); Lymphocytes % (auto) 31.8 %; Mean Corpuscular Hemoglobin 29.3 pg (25.0-34.0); Mean Corpuscular Hgb Conc 33.5 g/dL (32.0-36.0); Mean Corpuscular Volume 87.5 fL (80.0-100.0); Mean Platelet Volume 9.5 fL (9.4-12.4); Monocytes # (auto) 0.46 K/uL (0.11-0.59); Monocytes % (auto) 7.4 %; Neutrophils # (auto) 3.55 K/uL (1.40-6.50); Neutrophils % (auto) 56.9 %; Platelet Count 254 K/uL (130-400); RDW Coefficient of Variation 13.7 % (11.5-14.5); RDW Standard Deviation 44.5 fL (36.4-46.3); Red Blood Count 4.09 M/uL (4.70-6.10); White Blood Count 6.23 K/ul (4.8-10.8)
[2023-04-05 07:04] LABS: Albumin Globulin Ratio 1.1 (0.9-2); Albumin Level 3.8 gm/dl (3.4-5.0); BUN Creatinine Ratio 16.2 (10-20); Bilirubin,Total 0.6 mg/dl (0.2-1.0); Calcium 9.1 mg/dl (8.6-10.3); Creatinine Clr Calc Pharmacy 58.6 ml/min; Est GFR (African American) 55.6 ml/min; Globulin 3.5 gm/dl (2.5-4.0); Magnesium 1.7 mg/dl (1.7-2.4); Phosphorus 3.1 mg/dl (2.5-4.9); Potassium 4.3 mmol/L (3.5-5.1); Total Protein 7.3 gm/dl (6.0-8.3)
[2023-04-05] MEDS: INSULIN ASPART PER UNIT CHARGE SC SCH ×4 (09:05→21:30)
[2023-04-05] MEDS: LANTUS PER UNIT CHARGE SQ SCH (09:05)
[2023-04-05] MEDS: METHENAMINE HIPPURATE 1 GM TAB PO SCH ×2 (09:06→20:51)
[2023-04-05] MEDS: ASPIRIN 325 MG ECTAB PO SCH (09:06)
[2023-04-05] MEDS: DOXYCYCLINE HYCLATE 100 MG CAP PO SCH ×2 (09:06→20:51)
[2023-04-05] MEDS: CETIRIZINE HCL 10 MG TABLET PO SCH (09:06)
[2023-04-05] MEDS: MULTIVITAMIN TAB PO SCH (09:06)
[2023-04-05] MEDS: guaiFENesin 600 MG TABCR PO SCH ×2 (09:06→20:51)
[2023-04-05] MEDS: OSELTAMIVIR PHOSPHATE 75 MG CAP PO SCH ×2 (09:06→20:51)
[2023-04-05] MEDS: TAMSULOSIN HCL 0.4 MG CAP PO SCH (09:06)
[2023-04-05] MEDS: FAMOTIDINE 20 MG TAB PO SCH ×2 (09:06→15:33)
[2023-04-05] MEDS: ENOXAPARIN INJ 40 MG/0.4 ML SYR SQ SCH (09:07)
[2023-04-05] MEDS: METOPROLOL SUCC 25MG EXT REL TAB PO SCH (09:07)
[2023-04-05] MEDS: FERROUS SULFATE 325 MG TAB PO SCH (09:07)
[2023-04-05] MEDS: ESCITALOPRAM OXALATE 10 MG TAB PO SCH (09:07)
[2023-04-05] MEDS: FINASTERIDE 5 MG TAB PO SCH (15:33)
--- NOTE | 2023-04-05 18:30 | Hospitalist Progress Note ---
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 Acute hypoxic respiratory failure Influenza Acute on chronic CHF Pt with increased oxygen need initially Biofire positive for influenza A Chest XRAY with noted cardiomegaly and small pleural effusions BNP elevated at 218 Echo 2019 noted EF 40 to 45%, TTE 2019 Repeat echo ordered and confirms the same Received a dose of Lasix in the ED Was on IV Lasix 40mg daily, transitioned to PO home lasix 30mg dose Continue with tamiflu BID Continue with doxycycline for complicated bronchitis picture Duonebs prn, scheduled mucinex percussive vest therapy Oxygen supplementation as needed, wean as tolerated- currently on RA Possible exacerbation of CHF in setting of acute flu infection Daily weights, strict Is &Os Consider cardiology consult in AM for recs for d/c Hyponatremia Sodium 127 on admission Improving, sodium 133 currently Continue to monitor MARIELLE Cr elevated to 1.4 on 04/02, 04/05 Was on IV Lasix as noted above, transitioned to home po lasix dose Avoid other nephrotoxic meds and contrast Continue to monitor hx CAD hx PSVT hx PVD status post stent EKG with NSR hs-trop of 14.7 Stable hypertension Continue home metoprolol Currently controlled hyperlipidemia Continue on statin Rx 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 Ms. Suzanne mcclendon, contact #[phone]. Admission and Anticipated Discharge Date Admission Date: April 01, 2023 Subjective pt's symptoms are improving, currently on RA. States that he has still not had a bowel movement, but nursing note he had a small one yesterday. Per nursing, pt requiring more assistance than he originally did. Review of Systems Review of Systems: All systems reviewed & are unremarkable except as noted in Subjective Physical Exam Physical Exam: General: Alert, oriented. No acute distress Psych: Appropriate mood and affect Neuro: cannot see HEENT: NC/AT Chest: Nontender to palpation. CV: RRR Resp: Breath sounds coarse bilaterally, no increased effort of breathing. Abdomen: Soft, nontender, nondistended. Extremities: edema in lower extremities bilaterally. Results & Data Results & Data Vital Signs (Past 12 Hours) Vital Signs Temp Pulse Pulse Pulse Resp Resp BP 04/05/23 15:30 36.6 C 79 18 117/74 04/05/23 11:32 36.5 C 57 L 18 157/82 H 04/05/23 10:29 04/05/23 09:49 80 18 04/05/23 07:53 36.6 C 75 18 137/78 04/05/23 07:26 75 Pulse Ox Pulse Ox O2 Del Method 04/05/23 15:30 91 Room Air 04/05/23 11:32 98 Room Air 04/05/23 10:29 Room Air 04/05/23 09:49 94 04/05/23 07:53 92 Room Air 04/05/23 07:26
[2023-04-05] MEDS: ATORVASTATIN 40 MG TAB PO SCH (20:51)
[2023-04-06] MEDS: LEVOTHYROXINE SODIUM 50 MCG TABLET PO SCH (05:52)
[2023-04-06 07:14] LABS: Hematocrit (blood only) 34.4 % (42.0-52.0); Hemoglobin 11.5 g/dl (14.0-18.0); Mean Corpuscular Hemoglobin 29.4 pg (25.0-34.0); Mean Corpuscular Hgb Conc 33.4 g/dL (32.0-36.0); Mean Platelet Volume 9.7 fL (9.4-12.4); Platelet Count 257 K/uL (130-400); RDW Coefficient of Variation 13.9 % (11.5-14.5); RDW Standard Deviation 44.7 fL (36.4-46.3); Red Blood Count 3.91 M/uL (4.70-6.10); White Blood Count 7.03 K/ul (4.8-10.8)
[2023-04-06 07:41] LABS: Calcium 9.1 mg/dl (8.6-10.3); Creatinine Clr Calc Pharmacy 52.3 ml/min; Est GFR (African American) 48.1 ml/min; Est GFR (Non-African American) 41.5 ml/min; Magnesium 1.8 mg/dl (1.7-2.4); Potassium 4.1 mmol/L (3.5-5.1)
[2023-04-06] MEDS: OSELTAMIVIR PHOSPHATE 75 MG CAP PO SCH (08:45)
[2023-04-06] MEDS: TAMSULOSIN HCL 0.4 MG CAP PO SCH (08:45)
[2023-04-06] MEDS: ESCITALOPRAM OXALATE 10 MG TAB PO SCH (08:45)
[2023-04-06] MEDS: DOXYCYCLINE HYCLATE 100 MG CAP PO SCH (08:45)
[2023-04-06] MEDS: METHENAMINE HIPPURATE 1 GM TAB PO SCH (08:45)
[2023-04-06] MEDS: FERROUS SULFATE 325 MG TAB PO SCH (08:45)
[2023-04-06] MEDS: CETIRIZINE HCL 10 MG TABLET PO SCH (08:45)
[2023-04-06] MEDS: ASPIRIN 325 MG ECTAB PO SCH (08:45)
[2023-04-06] MEDS: MULTIVITAMIN TAB PO SCH (08:45)
[2023-04-06] MEDS: METOPROLOL SUCC 25MG EXT REL TAB PO SCH (08:46)
[2023-04-06] MEDS: guaiFENesin 600 MG TABCR PO SCH (08:46)
[2023-04-06] MEDS: FAMOTIDINE 20 MG TAB PO SCH (08:47)
[2023-04-06] MEDS: ENOXAPARIN INJ 40 MG/0.4 ML SYR SQ SCH (08:47)
--- NOTE | 2023-04-06 08:50 | Cardiology Consultation ---
Date of Consultation April 06, 2023 Assessment & Plan (1) Influenza A: (2) Ischemic cardiomyopathy: (3) Systolic congestive heart failure: (4) HFrEF (heart failure with reduced ejection fraction): Plan Hospitalization with Influenza A. As per Hospitalist. Chronic systolic congestive heart failure. HFrEF. Ischemic cardiomyopathy. EF 40-45%. QRS duration 114 ms. Patient maintaining sinus rhythm. Resting echocardiography this admission revealed the known prior infarct, results overall consist with prior evaluations. Volume status: Normovolemic. Continue the prior to arrival diuretic regimen which is listed as furosemide 30 mg/day Multivessel coronary artery disease. February 1999 inferior NSTEMI. February 25, 1999 Coronary Angiography: Normal LM. LAD with 50% then 90% lesions. 100% LCX occlusion after the OM1. 60% RCA stenosis. Patient asymptomatic. Recommended continued medical management, guideline directed therapies discussed. Continue aspirin, moderate intensity statin therapy, beta-karley, and as needed sublingual nitroglycerin. Patient previously treated with ACEI/ARB, discontinued for unknown reason(s). Future addition of long acting nitrates discussed. Hypertension. Controlled. Hyperlipidemia. Continue moderate intensity statin therapy. Peripheral arterial disease with chart history of right carotid artery occlusion and left carotid artery stenting, history of CVA x 2, with resultant blindness secondary to the prior occipital CVA. Continue Aspirin and statin as above. PSVT status post ablation. 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 Recommend General Cardiology follow-up as an outpatient Supervising Physician Co-Signing Physician Notes 77-year-old patient admitted with acute influenza infection. Cardiology consultation requested due to echocardiographic findings of ischemic heart disease. Patient reports "there is nothing wrong with my heart". Denies orthopnea or PND. No edema or weight gain. Shortness of breath, and productive cough since admission. No chest discomfort or heaviness. PE: VSS. GEN: NAD, AAO x3. Heart: Regular rhythm, normal S1-S2. No murmur. Lungs: Fine crackles at the bases bilateral, no rhonchi or wheeze. Extremities: No edema. A/P: Agree with above PA-C history, physical exam, assessment and plan. 77-year-old patient admitted with acute influenza infection. Physical findings of chronic heart failure with reduced ejection fraction, compensated. Echocardiogram stable when compared to prior studies. Recommend continuing current medications including daily oral furosemide and beta-karley.. Consider addition of low-dose VITOR inhibitor or ARB when recovered from influenza as blood pressure allows. Routine outpatient cardiology follow-up to establish care. History of Present Illness Reason for Consultation: CHF, echo with akinesis/hypokinesis Requesting Physician: Dr. Ferrell Attending Physician: Dr. Aurea Ferrell MD History of Present Illness Mr. Adrien Barrett is a 77 year old male admitted on 04/01/2023, presenting to the ER with shortness of breath, diagnosed with acute hypoxic respiratory failure secondary to Influenza A. Cardiology consultation placed on 04/05/2023 for recommendations regarding CHF treatment and an abnormal resting echocardiogram. April 04, 2023 TTE Interpretation Summary ([facility], Dr. Olsen): Technically limited. Endocardium inadequately assessed. LV systolic function mildly reduced. EF 40-45%. Apical segments appear severely hypokinetic to akinetic in limited views. Base of the inferior septum appears akinetic. Poorly visualized valvular anatomy. Mild mitral regurgitation. Patient with a history of inferior wall myocardial infarction in 1998. Coronary angiography at [facility] [place] [place] on 02/25/1999 (Dr. Pina) revealed a 50% LAD lesion and a 90% distal LAD lesion. The circumflex coronary artery was 100% occluded after the first marginal branch. The right coronary had a 60% occlusion. Medical treatment was recommended. Patient notes "There ain't nothing wrong with my heart, I'm here with the flu." Patient denies chest pain or discomfort, increased exertional shortness of breath, or palpitations since having an ablation. He notes a cough productive of phlegm. he denies current fevers or chills. He denies orthopnea, PND, or worsening lower extremtiy peripheral edema. He denies dizziness, near syncope, or true syncope. No melena or hematochezia. Notes now going three days without a bowel movement. Past Medical and Surgical History: Multivessel coronary artery disease History of February 1999 inferior NSTEMI February 25, 1999 Coronary Angiography: Normal LM. LAD with 50% then 90% lesions, 100% LCX occlusion after the OM1, 60% RCA stenosis Chronic systolic heart failure, ischemic cardiomyopathy, EF 40 to 45% PSVT status post ablation. 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 Mother with a PE. Sister with breast cancer. Social History: Reformed smoker, quitting at the time of the [place], smoking up to 2 ppd prior. No smokeless tobacco. No significant alcohol. No illegal drug use. Blind. 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 Lives with . Brother in law lives in the basement and does the laundry. Lives in [place]. Originally from [place]. Allergies Allergy/AdvReac Type Severity Reaction Status Date / Time tramadol [From Ultram] Allergy Severe Seizure Verified 04/01/23 18:30 haloperidol [From Haldol] Allergy Unknown Unknown Verified 04/01/23 18:30 lisinopril AdvReac Cough Unverified 04/01/23 18:30 Home Medications Medication Instructions Recorded Confirmed Type cetirizine 10 mg tablet 10 mg PO DAILY 08/12/19 04/01/23 History escitalopram oxalate 10 mg tablet 10 mg PO QAM 08/12/19 04/01/23 History (Lexapro) finasteride 5 mg tablet 5 mg PO QDL 08/12/19 04/01/23 History albuterol sulfate 2.5 mg/3 mL 2.5 mg inhalation Q4H PRN 04/12/21 04/01/23 History (0.083 %) solution for nebulization Shortness Of Breath Or Wheezing furosemide 20 mg tablet 30 mg PO DAILY 04/12/21 04/01/23 History metoprolol succinate 50 mg 25 mg PO DAILY 04/12/21 04/01/23 History tablet,extended release 24 hr multivitamin 1 tab PO DAILY 04/12/21 04/01/23 History potassium chloride 20 mEq 10 meq PO DAILY 04/12/21 04/01/23 History tablet,extended release acetaminophen 325 mg capsule 975 mg PO TID PRN 01/13/23 04/01/23 History PAIN/FEVER/HEADACHE ascorbic acid (vitamin C) 500 mg 500 mg PO DAILY 01/13/23 04/01/23 History tablet aspirin 325 mg tablet 325 mg PO DAILY 01/13/23 04/01/23 History famotidine 20 mg tablet 20 mg PO BIDM 01/13/23 04/01/23 History ferrous sulfate 325 mg (65 mg 325 mg PO DAILY 01/13/23 04/01/23 History iron) tablet,delayed release metformin 500 mg tablet 0 mg PO BID 01/13/23 04/01/23 History methenamine hippurate 1 gram tablet 1 g PO BID 01/13/23 04/01/23 History tamsulosin 0.4 mg capsule 0.4 mg PO DAILY 01/13/23 04/01/23 History valacyclovir 1 gram tablet 2,000 mg PO DAILY PRN Outbreak 01/13/23 04/01/23 History atorvastatin 80 mg tablet 40 mg PO HS 04/01/23 04/01/23 History levothyroxine 50 mcg tablet 50 mcg PO .DAILY @0600 04/01/23 04/01/23 History Patient History Medical History Constipation Hearing loss in left ear Obesity NSTEMI (non-ST elevated myocardial infarction) Rib fractures Herpesviral vesicular dermatitis Depression Hypothyroidism Diabetes mellitus, type II MARIELLE (acute kidney injury) Hypomagnesemia Diabetes UTI (urinary tract infection) Paroxysmal SVT (supraventricular tachycardia) Ischemic cardiomyopathy Anemia GERD (gastroesophageal reflux disease) Hypertension Pulmonary edema Acute respiratory failure with hypoxia Cerebral hypoperfusion HLD (hyperlipidemia) CAD (coronary artery disease) Carotid artery occlusion Seizure CVA (cerebrovascular accident) History of common carotid artery stent placement CVA (cerebral vascular accident) CHF (congestive heart failure) Surgical History Previous back surgery 2019 @ [facility] History of left heart catheterization 1998 100% occlusion circumflex; RCA: 60%; LAD 30-40 and 60-80% distally History of arthroscopic knee surgery History of cataract extraction History of carotid endarterectomy Family History Father Coronary heart disease Stroke Mother Pulmonary embolism Sister Cancer Breast Sister Cancer Breast cancer Social History Smoking Status: Never smoker Second Hand Exposure: No; Do You Dip or Chew Tobacco: No; Hx Alcohol Use: No Hx Substance Use: No Preferred Language: [place]er Communication Ability: Effective Communication Ability Comment: Pt is blind Manager Commercial Required: No Beliefs That Will Affect Care: None marital status: Current Living Situation: Spouse Current Living Situation Comment: LIVES WITH current occupational 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 Results & Data Vital Signs (Past 12 Hours) Vital Signs Temp Pulse Pulse Resp BP Pulse Ox O2 Del Method 04/06/23 08:03 36.5 C 68 16 139/75 94 Room Air 04/06/23 07:59 77 04/06/23 07:42 Room Air 04/06/23 03:00 36.4 C L 67 18 105/66 93 Room Air 04/06/23 01:00 04/06/23 00:37 Room Air 04/05/23 23:48 70 04/05/23 22:00 36.5 C 71 18 91/53 L 94 Room Air 04/05/23 21:48 73 18 94 Room Air O2 Del Method O2 Flow Rate 04/06/23 08:03 04/06/23 07:59 04/06/23 07:42 04/06/23 03:00 04/06/23 01:00 Nasal Cannula 2 04/06/23 00:37 04/05/23 23:48 04/05/23 22:00 04/05/23 21:48 Laboratory Results CBC 04/06/23 Range/Units 06:44 WBC 7.03 (4.8-10.8) K/ul RBC 3.91 L (4.70-6.10) M/uL Hgb 11.5 L (14.0-18.0) g/dl Hct 34.4 L (42.0-52.0) % Plt Count 257 (130-400) K/uL Comprehensive Metabolic Panel 04/06/23 Range/Units 06:44 Sodium 133 L (136-145) mmol/L Potassium 4.1 (3.5-5.1) mmol/L Chloride 98 (98-107) mmol/L Carbon Dioxide 27 (21-32) mmol/L BUN 32 H (6-23) mg/dl Creatinine 1.60 H (0.6-1.4) mg/dl Glucose 130 H (70-99(Fasting)) mg/dl Calcium 9.1 (8.6-10.3) mg/dl Intake and Output 04/05/23 04/06/23 04/06/23 22:59 06:59 14:59 Intake Total 100 / 250 50 / 250 Output Total 200 / 1000 0 / 1000 Balance -100 / -750 50 / -750 Intake: Oral 100 / 250 50 / 250 Output: Urine 200 / 200 0 / 200 Other: Weight 112.1 kg Diagnostic Findings Admission CXR Findings: An AP upright chest radiograph is compared to study dated 10/16/2019 and correlated with chest CT dated 04/12/2021. The examination is degraded by patient rotation. The heart is enlarged noting atherosclerotic calcification of the thoracic aorta. There is mild pulmonary vascular congestion. Chronic interstitial thickening is similar to previous. There are small pleural effusions with dependent atelectasis. No pneumothorax is seen. The skeletal structures are osteopenic. There are chronic/healed left-sided rib fractures. Postsurgical changes noted in the spine with thoracolumbar spinal rods in place. High Sensitivity Troponin I: 14.7 pg/mL B-Type Natriuretic Peptide: 218 pg/mL Telemetry: Sinus in the 60's and 70's. EKG: NSR at 74 bpm. Old inferior inferior infarct. Old anterior infarct. No significant change when compared to prior.
[2023-04-06] MEDS ORDERED: FUROSEMIDE 20 MG TAB PO SCH (09:00)
[2023-04-06] MEDS: INSULIN ASPART PER UNIT CHARGE SC SCH ×2 (09:18→13:26)
[2023-04-06] MEDS: LANTUS PER UNIT CHARGE SQ SCH (09:19)
[2023-04-06] MEDS: POLYETHYLENE (MIRALAX) 17 GM PACK PO PRN (09:47)
[2023-04-06] MEDS: FINASTERIDE 5 MG TAB PO SCH (12:16)
--- NOTE | 2023-04-06 14:51 | Discharge Summary ---
Discharge Summary Date of Service April 06, 2023 Notes For Next Care Provider Please ensure follow up with cardiology in the clinic. Cr elevated to 1.6 on discharge in setting of diuresis. IV lasix was transitioned back to lower home PO lasix dose on discharge. Please continue to monitor his renal function after discharge. Consider nephrology consult if renal function continues to trend up in setting of needed diuresis. Continue to monitor sodium level, consider nephrology consult if it falls below baseline Medication Changes From Visit Doxycycline 100mg BID Colace 100mg BID Admission HPI Per Admitting Provider History obtained from patient, family, and records. 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 Last confinement March 2021 for viral gastroenteritis. 1 week history of fever, sinus congestion, and cough symptoms later noted to be productive of yellow sputum. coughing as well. Both patient and have not received seasonal flu vaccine. Patient denies chest pain. Patient breathing noted to be more labored as per patient . Patient brought to ER for evaluation. 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 Admission Exam Per Admitting Provider GENERAL: Comfortable, obese, no respiratory distress SKIN: Pallor, warm HEENT: Pale palpebral conjunctivae, no ptosis, dry buccal mucosa, nasal cannula in place NECK : Supple, short neck, no tenderness CHEST : Decreased breath sounds, occasional expiratory wheezes, no tenderness HEART : RRR, no obvious murmurs ABDOMEN: Some distention, nontender EXTREMITIES : Minimal LE swelling, no LE tenderness, no other conspicuous deformities noted NEUROLOGIC : Coherent, no facial asymmetry, gait and stance not assessed Principal Dx & Hospital Course #1 = Principal Diagnosis (1) Hyponatremia: Pt is a 77yoM with PMHx significant for chronic systolic heart failure (EF 40 to 45%, TTE 2019), CAD, PSVT, hypertension, hyperlipidemia, PVD status post stent, 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 Acute hypoxic respiratory failure Pt with increased oxygen need initially Biofire positive for influenza A Chest XRAY with noted cardiomegaly and small pleural effusions BNP elevated at 218 Echo 2020 noted EF 40 to 45%, TTE 2020 Repeat echo ordered and confirms the same Received a dose of Lasix in the ED Was further treated with IV Lasix 40mg daily, transitioned to PO home lasix 30mg dose for discharge Completed 5 day course of tamiflu BID Treated with doxycycline for complicated bronchitis picture, discharged with the same to complete course Duonebs prn, scheduled mucinex percussive vest therapy Oxygen supplementation as needed, was weaned as tolerated and was on room air on discharge Possible exacerbation of CHF in setting of acute flu infection likely contributing to symptoms Daily weights, strict Is &Os Cardiology consulted- appreciate recs Influenza As above Biofire positive for influenza A Chest XRAY with noted cardiomegaly and small pleural effusions Completed 5 day course of tamiflu BID Treated with doxycycline for complicated bronchitis picture, discharged with the same to complete course Duonebs prn, scheduled mucinex percussive vest therapy Oxygen supplementation as needed, was weaned as tolerated and was on room air on discharge Acute on chronic CHF Chest XRAY with noted cardiomegaly and small pleural effusions BNP elevated at 218 Echo 2020 noted EF 40 to 45%, TTE 2020 Repeat echo ordered and confirms the same Received a dose of Lasix in the ED Was further treated with IV Lasix 40mg daily, transitioned to PO home lasix 30mg dose for discharge Oxygen supplementation as needed, was weaned as tolerated and was on room air on discharge Possible exacerbation of CHF in setting of acute flu infection likely contributing to symptoms Daily weights, strict Is &Os Cardiology consulted- appreciate recs -recommended to continue with current home regimen of lasix 30mg, atorvastatin 40mg, metoprolol succinate 25mg daily, prn nitro -Recommended General Cardiology follow-up as an outpatient. Per pt's he follows with [facility]iology at the [facility] and they were last Hyponatremia Sodium 127 on admission Improving, sodium 133 currently and on discharge Appears to be at baseline PCP follow up at discharge, consider nephrology followup MARIELLE Cr elevated to 1.6 on discharge in setting of IV diuresis IV lasix was transitioned to lower dose home PO lasix. Please continue to monitor his renal function after discharge. Avoid other nephrotoxic meds and contrast Consider nephrology consult if renal function continues to trend up in setting of needed diuresis. 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 Suzanne Barrett, contact #[phone], was updated on 04/06/23 before discharge. (2) Systolic congestive heart failure: (3) HFrEF (heart failure with reduced ejection fraction): (4) Weakness: (5) Influenza A: (6) Acute hyponatremia: Discharge Exam General: Alert, oriented. No acute distress Psych: Appropriate mood and affect Neuro: cannot see HEENT: NC/AT Chest: Nontender to palpation. CV: RRR Resp: Breath sounds coarse bilaterally, no increased effort of breathing. Abdomen: Soft, nontender, nondistended. Extremities: edema in lower extremities bilaterally. Updated Medication List Medication Instructions Recorded Confirmed Type cetirizine 10 mg tablet 10 mg PO DAILY 08/12/19 04/01/23 History escitalopram oxalate 10 mg tablet 10 mg PO QAM 08/12/19 04/01/23 History (Lexapro) finasteride 5 mg tablet 5 mg PO QDL 08/12/19 04/01/23 History albuterol sulfate 2.5 mg/3 mL 2.5 mg inhalation Q4H PRN 04/12/21 04/01/23 History (0.083 %) solution for nebulization Shortness Of Breath Or Wheezing furosemide 20 mg tablet 30 mg PO DAILY 04/12/21 04/01/23 History metoprolol succinate 50 mg 25 mg PO DAILY 04/12/21 04/01/23 History tablet,extended release 24 hr multivitamin 1 tab PO DAILY 04/12/21 04/01/23 History potassium chloride 20 mEq 10 meq PO DAILY 04/12/21 04/01/23 History tablet,extended release acetaminophen 325 mg capsule 975 mg PO TID PRN 01/13/23 04/01/23 History PAIN/FEVER/HEADACHE ascorbic acid (vitamin C) 500 mg 500 mg PO DAILY 01/13/23 04/01/23 History tablet aspirin 325 mg tablet 325 mg PO DAILY 01/13/23 04/01/23 History famotidine 20 mg tablet 20 mg PO BIDM 01/13/23 04/01/23 History ferrous sulfate 325 mg (65 mg 325 mg PO DAILY 01/13/23 04/01/23 History iron) tablet,delayed release metformin 500 mg tablet 0 mg PO BID 01/13/23 04/01/23 History methenamine hippurate 1 gram tablet 1 g PO BID 01/13/23 04/01/23 History tamsulosin 0.4 mg capsule 0.4 mg PO DAILY 01/13/23 04/01/23 History valacyclovir 1 gram tablet 2,000 mg PO DAILY PRN Outbreak 01/13/23 04/01/23 History atorvastatin 80 mg tablet 40 mg PO HS 04/01/23 04/01/23 History levothyroxine 50 mcg tablet 50 mcg PO .DAILY @0600 04/01/23 04/01/23 History docusate sodium 100 mg capsule 100 mg PO BID #60 caps 04/06/23 Rx (Colace) doxycycline hyclate 100 mg tablet 100 mg PO BID #7 tabs 04/06/23 Rx Hospital Stay Data Consultations 04/01/23 18:35 ED Decision to Admit Stat 04/05/23 18:47 Consult Cardiology Routine Diagnostic Imagining Performed Chest X-Ray 04/01/23 14:37 SINGLE VIEW CHEST CLINICAL HISTORY: Dyspnea FINDINGS: An AP upright chest radiograph is compared to study dated 10/16/2019 and correlated with chest CT dated 04/12/2021. The examination is degraded by patient rotation. The heart is enlarged noting atherosclerotic calcification of the thoracic aorta. There is mild pulmonary vascular congestion. Chronic interstitial thickening is similar to previous. There are small pleural effusions with dependent atelectasis. No pneumothorax is seen. The skeletal structures are osteopenic. There are chronic/healed left-sided rib fractures. Postsurgical changes noted in the spine with thoracolumbar spinal rods in place. IMPRESSION: 1. Cardiomegaly with mild pulmonary vascular congestion. 2. Small pleural effusions with dependent atelectasis. ACT 112: Negative or not required by law. Electronically signed by: Dillan Denis M.D. 04/01/2023 3:16 PM Pending Results Patient Have Any Pending Studies at Discharge: No Discharge Instructions Given to Patient (Per Discharging Provider) Mr. Barrett, You were admitted with shortness of breath in the setting of a flu infection. We treated your flu infection with tamiflu for 5 days and because of all your chest congestion we also gave mucinex, breathing treatments and used a percussive vest to help you bring up all the phlegm. We treated you for bronchitis with the antibiotic doxycycline and we are discharging you with additional doses for about 3 more days. You no longer require oxygen though you did when you came in. We are also discharging you with a daily stool softener to help with your bowels. You were seen by cardiology and they recommend continuing with your home medications. They do recommend that you follow up regularly in the Cardiology clinic after discharge. Per your , you follow with [facility]iology at the [facility]. Please keep close follow up with them. Please keep close follow up with your primary care provider and cardiology after discharge. Please do not hesitate to come back to the emergency room if your symptoms worsen or return. It was a pleasure taking care of you while you were here. Total Time Total Time Spent Total Time Spent (In Minutes): > 30 minutes
== END 2023-04-06 16:31 | DRG 193 ==
LOC: ED 14:27 → EDINP 20:42 → 2N 22:49

== ENCOUNTER 2023-05-08 04:09 | Inpatient (IN) ==
--- NOTE | 2023-05-08 04:29 | Emergency Department Note ---
Impression & Plan Respiratory failure Admit to the [facility] ED Provider Note NAME: NIRAJ GILBERT AGE: 77 SEX: Male INFORMANT: Patient ED PROVIDER(S): Franci Crump DO CHIEF COMPLAINT: Shortness of breath PLAN: Disposition: Admit to the [facility] MEDICAL DECISION MAKING: This is a 77-year-old male patient with a history of COPD, coronary artery disease and CHF who awoke at 230 this morning with shortness of breath. The states the patient had a fairly normal day. He had attended some appointments at the [place] clinic today and was feeling in his usual state of health tonight. He did eat deep-fried fish for dinner. He initially awoke at 1230 complaining of some shortness of breath and went back to sleep at 2:30 AM woke suddenly more short of breath. EMS was called and found him to be in moderate to severe respiratory distress and hypoxic. He was significantly diaphoretic and complaining of chest pain. Patient was placed on BiPAP at that time and they were able to stabilize his breathing. On presentation to the ER, the patient was tolerating the BiPAP and O2 saturations were 100%. Chest x-ray shows some evidence of CHF. Patient was given IV Lasix. Sano upper respiratory testing was negative. Troponin was positive at 117. Patient does have a recent history of hyponatremia for which she was admitted to the hospital. Today sodium was 133. There was mild leukocytosis at 14.9. Lactate was slightly elevated at 2.5. Blood cultures were sent. Patient is anemic at hemoglobin of 11.6. ABG reviewed pH 7.3 pCO2 of 52 and a pO2 of 298. With these ABG results, the respiratory rate was increased, however the patient.s blood pressure had dropped and he seemed to no longer be able to tolerate the BiPAP. The BiPAP was removed and the patient was placed on a nasal cannula at 6 L. He was able to maintain O2 saturations at 100% with this intervention. Supplemental O2 was dropped down to 2 L and O2 saturations were 94% and blood pressure came up nicely. [facility] and [facility] will evaluate for further inpatient care. Care/management discussed with: manager beauty and [facility] Triage Nursing notes: Reviewed and agree with them. Vital Signs: reviewed and remarkable for tachycardia Additional History obtained from: EMS Chronic Medical/Social Conditions affecting care: COPD and CHF Prior/ Outside/ External records reviewed: Home medication records; prehospital EKG Differential Diagnosis: CHF exacerbation; COPD exacerbation; cardiac dysrhythmia; STEMI; COVID; influenza; bronchitis; cardiac ischemia Diagnostics, independently interpreted by me: ECG: Sinus tachycardia at a rate of 113 with PVCs. There is concern for cardiac ischemia as there is ST segment depression in the inferior leads with ST segment elevation in aVR and V1. Cardiac Monitoring: Sinus tachycardia at a rate of 114 Imaging studies: Portable chest x-ray: As per my independent interpretation shows evidence of congestive heart failure with cardiomegaly HPI: 77 year old Male arrives for evaluation of shortness of breath. Patient woke from sleep at 2:30 AM with shortness of breath. Patient has history of COPD and CHF. He was feeling okay before bed. PAST MEDICAL HISTORY: See Below, PAST SURGICAL HISTORY: See Below, SOCIAL HISTORY: See Below, HOME MEDICATIONS: See list ALLERGIES: See list VITALS: See Below PHYSICAL EXAMINATION: HEENT: Head - normocephalic and atraumatic. Pupils are equal, round, and reactive to light. Extraocular eye muscles are intact, and sclera are anicteric. Nose - moist nasal mucosa without discharge. Mouth - moist buccal mucosa. Oropharynx is nonerythematous and there is no tonsillar exudate or edema noted. Neck: Supple; no JVD or nuchal rigidity Heart: Tachycardic rate and regular rhythm there is a normal S1 and S2 with no murmurs, clicks, or gallops appreciated. Lungs: Diffuse rales at both lung bases with rhonchi in all lung echavarria Abdomen: Soft, completely nontender, nondistended, with good bowel sounds. There are no palpable pulsatile masses or hepatosplenomegaly. There is no guarding, rigidity, or rebound noted. Extremities: 2+ pitting edema both lower extremities there are easily palpable peripheral pulses. Skin: warm and dry with good turgor and no rashes. Emergency department treatment: cafeteria monitor, supplemental oxygen, BiPAP, IV Lasix Emergency department course: The patient was evaluated in room B1, report was received from EMS, complete history and physical was performed. Laboratory studies were drawn as above. Twelve-lead EKG was obtained. Order was placed for continuous cardiac monitoring. The patient was in a sinus tachycardia at a rate of 114. Portable chest x-ray was performed. Patient was given a dose of IV Lasix and placed on our BiPAP. ABG was obtained. Increase the rate on the BiPAP. O2 saturations were 100% and patient was more comfortable. Patient rested more comfortably. Patient was becoming more hypotensive so we removed the BiPAP and blood pressure came up. O2 saturations remained stable. [facility]. I have personally spent greater than 65 minutes of critical care time in the direct management of this patient. This includes bedside care, interpretation of diagnostic studies, and testing, discussion with consultants, patient, and family members, and other required patient management activities. This 65 minutes is in excess of all separately billable procedures. Past Med/Surg History Medical History Constipation Hearing loss in left ear Obesity NSTEMI (non-ST elevated myocardial infarction) Rib fractures Herpesviral vesicular dermatitis Depression Hypothyroidism Diabetes mellitus, type II MARIELLE (acute kidney injury) Hypomagnesemia Diabetes UTI (urinary tract infection) Paroxysmal SVT (supraventricular tachycardia) Ischemic cardiomyopathy Anemia GERD (gastroesophageal reflux disease) Hypertension Pulmonary edema Acute respiratory failure with hypoxia Cerebral hypoperfusion HLD (hyperlipidemia) CAD (coronary artery disease) Carotid artery occlusion Seizure CVA (cerebrovascular accident) History of common carotid artery stent placement CVA (cerebral vascular accident) CHF (congestive heart failure) Surgical History Previous back surgery 2019 @ [facility] History of left heart catheterization 1998 100% occlusion circumflex; RCA: 60%; LAD 30-40 and 60-80% distally History of arthroscopic knee surgery History of cataract extraction History of carotid endarterectomy Family History Father Coronary heart disease Stroke Mother Pulmonary embolism Sister Cancer Breast Sister Cancer Breast cancer Social History Smoking Status: Current every day smoker Tobacco Type: Cigarettes Second Hand Exposure: No; Do You Dip or Chew Tobacco: No; Hx Alcohol Use: No Hx Substance Use: No Preferred Language: Bahraini Communication Ability: Effective Communication Ability Comment: Pt is blind Director Of Analytics Required: No Beliefs That Will Affect Care: None marital status: Current Living Situation: Spouse Current Living Situation Comment: LIVES WITH current 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 Feels Safe at Home: Yes during the past year weight has: remained stable Assistive Devices: Denture - Upper, Nebulizer, Walker and Wheelchair Allergies Allergies Allergy/AdvReac Type Severity Reaction Status Date / Time tramadol [From Ultram] Allergy Severe Seizure Verified 05/08/23 04:34 haloperidol [From Haldol] Allergy Unknown Unknown Verified 05/08/23 04:34 lisinopril AdvReac Cough Verified 05/08/23 04:34 Home Meds Home Medications Medication Instructions Recorded Confirmed cetirizine 10 mg tablet 10 mg PO DAILY 08/12/19 04/01/23 escitalopram oxalate 10 mg tablet 10 mg PO QAM 08/12/19 04/01/23 (Lexapro) finasteride 5 mg tablet 5 mg PO QDL 08/12/19 04/01/23 albuterol sulfate 2.5 mg/3 mL 2.5 mg inhalation Q4H PRN 04/12/21 04/01/23 (0.083 %) solution for nebulization Shortness Of Breath Or Wheezing furosemide 20 mg tablet 30 mg PO DAILY 04/12/21 04/01/23 metoprolol succinate 50 mg 25 mg PO DAILY 04/12/21 04/01/23 tablet,extended release 24 hr multivitamin 1 tab PO DAILY 04/12/21 04/01/23 potassium chloride 20 mEq 10 meq PO DAILY 04/12/21 04/01/23 tablet,extended release acetaminophen 325 mg capsule 975 mg PO TID PRN 01/13/23 04/01/23 PAIN/FEVER/HEADACHE ascorbic acid (vitamin C) 500 mg 500 mg PO DAILY 01/13/23 04/01/23 tablet aspirin 325 mg tablet 325 mg PO DAILY 01/13/23 04/01/23 famotidine 20 mg tablet 20 mg PO BIDM 01/13/23 04/01/23 ferrous sulfate 325 mg (65 mg 325 mg PO DAILY 01/13/23 04/01/23 iron) tablet,delayed release metformin 500 mg tablet 0 mg PO BID 01/13/23 04/01/23 methenamine hippurate 1 gram tablet 1 g PO BID 01/13/23 04/01/23 tamsulosin 0.4 mg capsule 0.4 mg PO DAILY 01/13/23 04/01/23 valacyclovir 1 gram tablet 2,000 mg PO DAILY PRN Outbreak 01/13/23 04/01/23 atorvastatin 80 mg tablet 40 mg PO HS 04/01/23 04/01/23 levothyroxine 50 mcg tablet 50 mcg PO .DAILY @0600 04/01/23 04/01/23 Previous Rx's Medication Instructions Recorded docusate sodium 100 mg capsule 100 mg PO BID #60 caps 04/06/23 (Colace) doxycycline hyclate 100 mg tablet 100 mg PO BID #7 tabs 04/06/23 Results & Data (ED) Vital Signs Vital Signs - 24 hr 05/08/23 04:13 05/08/23 04:16 05/08/23 04:16 Temperature 37 C Temperature Source Axillary Pulse Rate 114 H 104 H Pulse Rate [Apical] Pulse Rhythm Irregular Pulse Rhythm [Apical] Pulse Strength Normal Pulse Strength [Apical] Respiratory Rate 20 Respiratory Effort / Characteristics Labored Short of Breath Labored Short of Breath Respiratory Depth Deep Deep Respiratory Pattern Regular Blood Pressure 112/90 Blood Pressure [Right Arm] Blood Pressure Mean 97 Blood Pressure Mean [Right Arm] Blood Pressure Position Lying Blood Pressure Position [Right Arm] Pulse Oximetry 99 Oxygen Delivery Method BiPAP BiPAP Oxygen Flow Rate Fraction of Inspired Oxygen 80 SaO2/FiO2 Ratio 123 Sepsis Recent Fever Within 48 Hours No Sepsis New/Unexplained Change in Mental Status No Sepsis Action Taken by Nursing No Action Required 05/08/23 04:19 05/08/23 04:30 05/08/23 04:31 Temperature Temperature Source Pulse Rate 101 H 99 H Pulse Rate [Apical] Pulse Rhythm Irregular Pulse Rhythm [Apical] Pulse Strength Pulse Strength [Apical] Respiratory Rate 21 18 Respiratory Effort / Characteristics Non-Labored Spontaneous Respiratory Depth Normal Respiratory Pattern Regular Blood Pressure Blood Pressure [Right Arm] Blood Pressure Mean Blood Pressure Mean [Right Arm] Blood Pressure Position Blood Pressure Position [Right Arm] Pulse Oximetry 99 99 98 Oxygen Delivery Method BiPAP BiPAP Oxygen Flow Rate Fraction of Inspired Oxygen 80 SaO2/FiO2 Ratio Sepsis Recent Fever Within 48 Hours Sepsis New/Unexplained Change in Mental Status Sepsis Action Taken by Nursing 05/08/23 04:39 05/08/23 04:50 05/08/23 04:50 Temperature Temperature Source Pulse Rate 96 H Pulse Rate [Apical] 97 H Pulse Rhythm Pulse Rhythm [Apical] Irregular Pulse Strength Pulse Strength [Apical] Normal Respiratory Rate 18 22 Respiratory Effort / Characteristics Labored Short of Breath Respiratory Depth Deep Respiratory Pattern Regular Blood Pressure 83/54 L Blood Pressure [Right Arm] 79/52 L Blood Pressure Mean 63 Blood Pressure Mean [Right Arm] 61 Blood Pressure Position Blood Pressure Position [Right Arm] Lying Pulse Oximetry 99 98 Oxygen Delivery Method BiPAP BiPAP Oxygen Flow Rate Fraction of Inspired Oxygen 50 SaO2/FiO2 Ratio Sepsis Recent Fever Within 48 Hours Sepsis New/Unexplained Change in Mental Status Sepsis Action Taken by Nursing 05/08/23 05:00 05/08/23 05:40 05/08/23 06:00 Temperature Temperature Source Pulse Rate Pulse Rate [Apical] 94 H 94 H 90 Pulse Rhythm Pulse Rhythm [Apical] Irregular Regular Pulse Strength Pulse Strength [Apical] Normal Normal Respiratory Rate 21 22 20 Respiratory Effort / Characteristics Spontaneous Labored Short of Breath Non-Labored Spontaneous Non-Labored Spontaneous Respiratory Depth Normal Normal Normal Respiratory Pattern Regular Regular Regular Blood Pressure Blood Pressure [Right Arm] 81/50 L 103/62 95/57 L Blood Pressure Mean Blood Pressure Mean [Right Arm] 60 75 69 Blood Pressure Position Blood Pressure Position [Right Arm] Lying Lying Pulse Oximetry 97 97 95 Oxygen Delivery Method BiPAP Nasal Cannula Nasal Cannula Oxygen Flow Rate 2 2 Fraction of Inspired Oxygen SaO2/FiO2 Ratio Sepsis Recent Fever Within 48 Hours Sepsis New/Unexplained Change in Mental Status Sepsis Action Taken by Nursing Laboratory Data 05/08/23 04:22 05/08/23 04:22 Lab Results 05/08/23 05/08/23 05/08/23 Range/Units 04:22 04:30 04:36 WBC 14.92 H (4.8-10.8) K/ul RBC 3.99 L (4.70-6.10) M/uL Hgb 11.6 L (14.0-18.0) g/dl POC Hgb 11.6 L (14.0-18.0) g/dl Hct 35.8 L (42.0-52.0) % POC Hct 34 L (42-52) % MCV 89.7 (80.0-100.0) fL MCH 29.1 (25.0-34.0) pg MCHC 32.4 (32.0-36.0) g/dL RDW Std Deviation 45.0 (36.4-46.3) fL RDW Coeff of Marva 13.8 (11.5-14.5) % Plt Count 298 (130-400) K/uL MPV 10.1 (9.4-12.4) fL Immature Gran % (Auto) 0.9 % Neut % (Auto) 70.4 % Lymph % (Auto) 23.1 % [place] % (Auto) 3.8 % Eos % (Auto) 1.4 % Baso % (Auto) 0.4 % Neut # (Auto) 10.50 H (1.40-6.50) K/uL Lymph # (Auto) 3.44 H (1.20-3.40) K/uL [place] # (Auto) 0.57 (0.11-0.59) K/uL Eos # (Auto) 0.21 (0.00-0.50) K/uL Baso # (Auto) 0.06 (0.00-0.20) K/uL Immature Gran # (Auto) 0.14 (0.01-0.20) K/uL POC pH 7.30 L (7.35-7.45) POC pCO2 52 H (35-46) mmHg POC pO2 298 H (80-95) mmHg POC HCO3 25 H (19-24) warren/L POC Total CO2 27 (24-31) mmol/L POC Base Excess -1.0 (-9-1.8) warren/L POC ABG O2 Sat 100.0 H (90-95) % POC Sodium 134 L (135-144) mmol/L Sodium 133 L (136-145) mmol/L POC Potassium 4.0 (3.3-5.0) mmol/L Potassium 4.0 (3.5-5.1) mmol/L Chloride 99 (98-107) mmol/L Carbon Dioxide 27 (21-32) mmol/L Anion Gap 7 (3-11) BUN 27 H (6-23) mg/dl Creatinine 1.31 (0.6-1.4) mg/dl Est Cr Clr Drug Dosing 65.3 ml/min Est GFR ( Amer) 61.3 ml/min Est GFR (Non-Af Amer) 52.9 ml/min BUN/Creatinine Ratio 20.6 H (10-20) Glucose 307 H* (70-99(Fasting)) mg/dl Lactate (0.4-2.0) mmol/L Calcium 8.6 (8.6-10.3) mg/dl Total Bilirubin 0.3 (0.2-1.0) mg/dl AST 18 (13-39) U/L ALT 25 (7-52) U/L Alkaline Phosphatase 109 H (34-104) U/L Troponin I High Sens 117.2 H* (0-20) pg/ml Total Protein 6.9 (6.0-8.3) gm/dl Albumin 3.5 (3.4-5.0) gm/dl Globulin 3.4 (2.5-4.0) gm/dl Albumin/Globulin Ratio 1.0 (0.9-2) Adenovirus (PCR) Not Detected (NotDetected) B. pertussis DNA (PCR) Not Detected (NotDetected) B.parapertussis DNA PCR Not Detected (NotDetected) C. pneumoniae DNA (PCR) Not Detected (NotDetected) Coronavirus OC43 (PCR) Not Detected (NotDetected) Coronavirus HKU1 (PCR) Not Detected (NotDetected) Coronavirus 229E (PCR) Not Detected (NotDetected) SARS-CoV-2 (PCR) Not Detected (NotDetected) Coronavirus NL63 (PCR) Not Detected (NotDetected) Human Metapneumovir PCR Not Detected (NotDetected) Influenza Type A (PCR) Not Detected (NotDetected) Influenza Type B (PCR) Not Detected (NotDetected) M. pneumoniae (PCR) Not Detected (NotDetected) Parainfluenza 1 (PCR) Not Detected (NotDetected) Parainfluenza 2 (PCR) Not Detected (NotDetected) Parainfluenza 3 (PCR) Not Detected (NotDetected) Parainfluenza 4 (PCR) Not Detected (NotDetected) RSV (PCR) Not Detected (NotDetected) Entero/Rhino (PCR) Not Detected (NotDetected) 05/08/23 Range/Units 05:26 WBC (4.8-10.8) K/ul RBC (4.70-6.10) M/uL Hgb (14.0-18.0) g/dl POC Hgb (14.0-18.0) g/dl Hct (42.0-52.0) % POC Hct (42-52) % MCV (80.0-100.0) fL MCH (25.0-34.0) pg MCHC (32.0-36.0) g/dL RDW Std Deviation (36.4-46.3) fL RDW Coeff of Marva (11.5-14.5) % Plt Count (130-400) K/uL MPV (9.4-12.4) fL Immature Gran % (Auto) % Neut % (Auto) % Lymph % (Auto) % [place] % (Auto) % Eos % (Auto) % Baso % (Auto) % Neut # (Auto) (1.40-6.50) K/uL Lymph # (Auto) (1.20-3.40) K/uL [place] # (Auto) (0.11-0.59) K/uL Eos # (Auto) (0.00-0.50) K/uL Baso # (Auto) (0.00-0.20) K/uL Immature Gran # (Auto) (0.01-0.20) K/uL POC pH (7.35-7.45) POC pCO2 (35-46) mmHg POC pO2 (80-95) mmHg POC HCO3 (19-24) warren/L POC Total CO2 (24-31) mmol/L POC Base Excess (-9-1.8) warren/L POC ABG O2 Sat (90-95) % POC Sodium (135-144) mmol/L Sodium (136-145) mmol/L POC Potassium (3.3-5.0) mmol/L Potassium (3.5-5.1) mmol/L Chloride (98-107) mmol/L Carbon Dioxide (21-32) mmol/L Anion Gap (3-11) BUN (6-23) mg/dl Creatinine (0.6-1.4) mg/dl Est Cr Clr Drug Dosing ml/min Est GFR ( Amer) ml/min Est GFR (Non-Af Amer) ml/min BUN/Creatinine Ratio (10-20) Glucose (70-99(Fasting)) mg/dl Lactate 2.5 H* (0.4-2.0) mmol/L Calcium (8.6-10.3) mg/dl Total Bilirubin (0.2-1.0) mg/dl AST (13-39) U/L ALT (7-52) U/L Alkaline Phosphatase (34-104) U/L Troponin I High Sens (0-20) pg/ml Total Protein (6.0-8.3) gm/dl Albumin (3.4-5.0) gm/dl Globulin (2.5-4.0) gm/dl Albumin/Globulin Ratio (0.9-2) Adenovirus (PCR) (NotDetected) B. pertussis DNA (PCR) (NotDetected) B.parapertussis DNA PCR (NotDetected) C. pneumoniae DNA (PCR) (NotDetected) Coronavirus OC43 (PCR) (NotDetected) Coronavirus HKU1 (PCR) (NotDetected) Coronavirus 229E (PCR) (NotDetected) SARS-CoV-2 (PCR) (NotDetected) Coronavirus NL63 (PCR) (NotDetected) Human Metapneumovir PCR (NotDetected) Influenza Type A (PCR) (NotDetected) Influenza Type B (PCR) (NotDetected) M. pneumoniae (PCR) (NotDetected) Parainfluenza 1 (PCR) (NotDetected) Parainfluenza 2 (PCR) (NotDetected) Parainfluenza 3 (PCR) (NotDetected) Parainfluenza 4 (PCR) (NotDetected) RSV (PCR) (NotDetected) Entero/Rhino (PCR) (NotDetected) Administered Medications Discontinued Medications Furosemide (Furosemide 40 Mg/4 Ml Vial) 40 mg IV ONE ONE Stop: 05/08/23 04:20 Last Admin: 05/08/23 04:35 Dose: 40 mg Documented By: [email or web address] Discharge Plan Visit Data Chief Complaint: Chest Pain Stated Complaint: CHEST PAIN, SHORTNESS OF BREATH ED Provider: Franci Crump Discharge Problem: Respiratory failure Forms Stand Alone Forms: [facility] Prescriptions Prescriptions: No Action methenamine hippurate 1 gram tablet 1 g PO BID tamsulosin 0.4 mg capsule 0.4 mg PO DAILY acetaminophen 325 mg capsule 975 mg PO TID PRN (Reason: PAIN/FEVER/HEADACHE) aspirin 325 mg tablet 325 mg PO DAILY ferrous sulfate 325 mg (65 mg iron) tablet,delayed release (DR/EC) 325 mg PO DAILY Patient Comments: take with vitamin C metformin 500 mg tablet 0 mg PO BID Patient Comments: with evening meal Rx Instructions: Take 1000mg by mouth every morning and 500mg by mouth at bedtime valacyclovir 1 gram tablet 2,000 mg PO DAILY PRN (Reason: Outbreak) Patient Comments: two tables a day for H.Labialis. Take two tablets twice a day for 1 day only for outbreak. cetirizine 10 mg Tablet 10 mg PO DAILY finasteride 5 mg Tablet 5 mg PO QDL escitalopram oxalate [Lexapro] 10 mg Tablet 10 mg PO QAM ascorbic acid (vitamin C) 500 mg tablet 500 mg PO DAILY famotidine 20 mg tablet 20 mg PO BIDM Patient Comments: hold while taking ceftin albuterol sulfate 2.5 mg /3 mL (0.083 %) Solution For Nebulization 2.5 mg INHALATION Q4H PRN (Reason: Shortness Of Breath Or Wheezing) potassium chloride 20 mEq Tablet Extended Release 10 meq PO DAILY Rx Instructions: 1/2 TABLET DAILY multivitamin Tablet 1 tab PO DAILY metoprolol succinate 50 mg Tablet Extended Release 24 Hr 25 mg PO DAILY furosemide 20 mg Tablet 30 mg PO DAILY Rx Instructions: ONE AND ONE HALF TABLET DOSE DAILY atorvastatin 80 mg Tablet 40 mg PO HS levothyroxine 50 mcg Tablet 50 mcg PO .DAILY @0600 doxycycline hyclate 100 mg tablet 100 mg PO BID Qty: 7 0RF docusate sodium [Colace] 100 mg capsule 100 mg PO BID Qty: 60 0RF Referrals Referrals: Raysa Hobbs M.D. [Primary Care Provider] -
[2023-05-08] MEDS: FUROSEMIDE 40 MG/4 ML VIAL IV ONE (04:35)
[2023-05-08 04:47] LABS: Basophils # (auto) 0.06 K/uL (0.00-0.20); Basophils % (auto) 0.4 %; Eosinophils # (auto) 0.21 K/uL (0.00-0.50); Eosinophils % (auto) 1.4 %; Hematocrit (blood only) 35.8 % (42.0-52.0); Hemoglobin 11.6 g/dl (14.0-18.0); Immature Granulocytes # (auto) 0.14 K/uL (0.01-0.20); Immature Granulocytes % (auto) 0.9 %; Lymphocytes # (auto) 3.44 K/uL (1.20-3.40); Lymphocytes % (auto) 23.1 %; Mean Corpuscular Hemoglobin 29.1 pg (25.0-34.0); Mean Corpuscular Hgb Conc 32.4 g/dL (32.0-36.0); Mean Corpuscular Volume 89.7 fL (80.0-100.0); Mean Platelet Volume 10.1 fL (9.4-12.4); Monocytes # (auto) 0.57 K/uL (0.11-0.59); Monocytes % (auto) 3.8 %; Neutrophils % (auto) 70.4 %; Platelet Count 298 K/uL (130-400); RDW Coefficient of Variation 13.8 % (11.5-14.5); Red Blood Count 3.99 M/uL (4.70-6.10); White Blood Count 14.92 K/ul (4.8-10.8)
[2023-05-08 04:49] LABS: iSTAT Arterial Blood Gas HCO3 25 meg/L (19-24); iSTAT Arterial Blood Gas pCO2 52 mmHg (35-46); iSTAT Arterial Blood Gas pO2 298 mmHg (80-95); iSTAT Carbon Dioxide 27 mmol/L (24-31); iSTAT Hematocrit 34 % (42-52); iSTAT Hemoglobin 11.6 g/dl (14.0-18.0); iSTAT Sodium 134 mmol/L (135-144)
[2023-05-08 05:06] LABS: Albumin Level 3.5 gm/dl (3.4-5.0); BUN Creatinine Ratio 20.6 (10-20); Bilirubin,Total 0.3 mg/dl (0.2-1.0); Calcium 8.6 mg/dl (8.6-10.3); Creatinine Clr Calc Pharmacy 65.3 ml/min; Est GFR (African American) 61.3 ml/min; Est GFR (Non-African American) 52.9 ml/min; Globulin 3.4 gm/dl (2.5-4.0); Total Protein 6.9 gm/dl (6.0-8.3)
[2023-05-08 05:30] LABS: Adenovirus PCR Not Detected (NotDetected); Bordetella parapertussis PCR Not Detected (NotDetected); Bordetella pertussis PCR Not Detected (NotDetected); Chlamydia pneumoniae PCR Not Detected (NotDetected); Coronavirus 229E PCR Not Detected (NotDetected); Coronavirus CoV-2 (COVID19)PCR Not Detected (NotDetected); Coronavirus HKU1 PCR Not Detected (NotDetected); Coronavirus NL63 PCR Not Detected (NotDetected); Coronavirus OC43PCR Not Detected (NotDetected); Human Metapneumovirus PCR Not Detected (NotDetected); Influenza A PCR Not Detected (NotDetected); Influenza B PCR Not Detected (NotDetected); Mycoplasma pneumoniae PCR Not Detected (NotDetected); Parainfluenza Virus 1 PCR Not Detected (NotDetected); Parainfluenza Virus 2 PCR Not Detected (NotDetected); Parainfluenza Virus 3 PCR Not Detected (NotDetected); Parainfluenza Virus 4 PCR Not Detected (NotDetected); Respiratory Syncytial VirusPCR Not Detected (NotDetected); Rhinovirus/Enterovirus PCR Not Detected (NotDetected)
[2023-05-08 05:56] LABS: Troponin I High Sensitivity 117.2 pg/ml (0-20)
[2023-05-08] MEDS: INSULIN ASPART PER UNIT CHARGE SC STA (06:51)
[2023-05-08] MEDS ORDERED: Heparin IV Adult Wt-Based Low-Dose *NO* INITIAL Bolus Protocol IV STA (07:16)
--- NOTE | 2023-05-08 07:33 | History & Physical Report ---
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 As per patient had some shortness of breath around 11:30 PM last night but he went to sleep and he woke up around 2:30 AM and was struggling to breathe and somewhat diaphoretic when she called EMS and brought him here. In the ER he had an episode of chest pain but that got resolved now. Patient is sleeping but arousable. Patient says now he is feeling better. Denies any chest pain currently. Shortness of breath improved as per patient. No headache. No fevers. No nausea. No runny nose. No sore throat. Appetite is okay. No abdominal pain. Somewhat constipated. Ambulates with walker at home. Heart failure with reduced ejection fraction Echo done in April 04, 2023 showed EF of 40 to 45% On home on Lasix 30 mg daily Received IV Lasix 40 mg in the ER Chest x-ray mild pulmonary edema Currently patient states shortness of breath improved Blood pressure somewhat soft Closely monitor Monitor I's and O's and daily weights further diuretics per Cardiology Non-ST elevated CT An episode of chest pain EKG currently no acute ST changes Initial troponin 117 and repeat troponin 429 Currently chest pain-free Started on low-dose IV heparin Will follow serial cardiac enzymes and echo N.p.o. for now Cardiac consulted Elevated lactic acid Possibly from his shortness of breath. Will follow repeat levels. Follow repeat ABG Leukocytosis Procalcitonin negative.. Will follow urinalysis. History of recurrent UTI Diabetes hyperglycemia Hold metformin Sliding scale Close monitor History of CAD On aspirin, statin, beta-karley Will follow echo History of PVD s/p stent On aspirin and statin History of PSVT On metoprolol succinate Will monitor BPH On flomax and finasteride Hypothyroidism on Synthyroid Hypertension On metoprolol succinate Hyperlipidemia on statin History of occipital infarction Blindness On aspirin and statin History of [place] cell carcinoma left ear S/p surgery Chronic anemia hemoglobin stable at 11.6 DVT prophylaxis IV heparin Disposition telemetry Full code History of Present Illness Chief Complaint: Chest pain and shortness of breath Primary Care Provider: Raysa Hobbs 77-year-old male with past medical history significant for type 2 diabetes, hyperlipidemia, CAD, obesity, history of occipital cerebral infarction, completely blind, history of focal seizures currently not on any medications, status post carotid endarterectomy, chronic systolic CHF, PVD, chronic hyponatremia, hypothyroidism, GERD, BPH, [place]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 As per patient had some shortness of breath around 11:30 PM last night but he went to sleep and he woke up around 2:30 AM and was struggling to breathe and somewhat diaphoretic when she called EMS and brought him here. In the ER he had an episode of chest pain but that got resolved now. Patient is sleeping but arousable. Patient says now he is feeling better. Denies any chest pain currently. Shortness of breath improved as per patient. No headache. No fevers. No nausea. No runny nose. No sore throat. Appetite is okay. No abdominal pain. Somewhat constipated. Ambulates with walker at home. Past medical history. As mentioned above Past surgical history. Left heart catheterization. Right knee arthroscopy. Bilateral cataract surgeries. Social history. . Quit smoking 1978. No alcohol use. No drug use. Family history. Father had CT. Stroke. Mother had pulmonary embolism. Sister has obesity. Allergies Allergy/AdvReac Type Severity Reaction Status Date / Time tramadol [From Ultram] Allergy Severe Seizure Verified 05/08/23 04:34 haloperidol [From Haldol] Allergy Unknown Unknown Verified 05/08/23 04:34 lisinopril AdvReac Cough Verified 05/08/23 04:34 Home Medications Medication Instructions Recorded Confirmed Type cetirizine 10 mg tablet 10 mg PO DAILY 08/12/19 05/08/23 History escitalopram oxalate 10 mg tablet 10 mg PO QAM 08/12/19 05/08/23 History (Lexapro) finasteride 5 mg tablet 5 mg PO QDL 08/12/19 05/08/23 History albuterol sulfate 2.5 mg/3 mL 2.5 mg inhalation Q4H PRN 04/12/21 05/08/23 History (0.083 %) solution for nebulization Shortness Of Breath Or Wheezing furosemide 20 mg tablet 30 mg PO DAILY 04/12/21 05/08/23 History metoprolol succinate 50 mg 25 mg PO DAILY 04/12/21 05/08/23 History tablet,extended release 24 hr multivitamin 1 tab PO DAILY 04/12/21 05/08/23 History potassium chloride 20 mEq 10 meq PO DAILY 04/12/21 05/08/23 History tablet,extended release acetaminophen 325 mg capsule 975 mg PO TID PRN 01/13/23 05/08/23 History PAIN/FEVER/HEADACHE ascorbic acid (vitamin C) 500 mg 500 mg PO DAILY 01/13/23 05/08/23 History tablet aspirin 325 mg tablet 325 mg PO DAILY 01/13/23 05/08/23 History famotidine 20 mg tablet 20 mg PO BIDM 01/13/23 05/08/23 History ferrous sulfate 325 mg (65 mg 325 mg PO DAILY 01/13/23 05/08/23 History iron) tablet,delayed release metformin 500 mg tablet 500 mg PO BID 01/13/23 05/08/23 History tamsulosin 0.4 mg capsule 0.4 mg PO DAILY 01/13/23 05/08/23 History valacyclovir 1 gram tablet 2,000 mg PO DAILY PRN Outbreak 01/13/23 05/08/23 History atorvastatin 80 mg tablet 40 mg PO HS 04/01/23 05/08/23 History levothyroxine 50 mcg tablet 50 mcg PO .DAILY @0600 04/01/23 05/08/23 History docusate sodium 100 mg capsule 100 mg PO BID #60 caps 04/06/23 05/08/23 Rx (Colace) Past Med/Surg History Medical History Constipation Hearing loss in left ear Obesity NSTEMI (non-ST elevated myocardial infarction) Rib fractures Herpesviral vesicular dermatitis Depression Hypothyroidism Diabetes mellitus, type II MARIELLE (acute kidney injury) Hypomagnesemia Diabetes UTI (urinary tract infection) Paroxysmal SVT (supraventricular tachycardia) Ischemic cardiomyopathy Anemia GERD (gastroesophageal reflux disease) Hypertension Pulmonary edema Acute respiratory failure with hypoxia Cerebral hypoperfusion HLD (hyperlipidemia) CAD (coronary artery disease) Carotid artery occlusion Seizure CVA (cerebrovascular accident) History of common carotid artery stent placement CVA (cerebral vascular accident) CHF (congestive heart failure) Surgical History Previous back surgery 2019 @ [facility] History of left heart catheterization 1998 100% occlusion circumflex; RCA: 60%; LAD 30-40 and 60-80% distally History of arthroscopic knee surgery History of cataract extraction History of carotid endarterectomy Family History Father Coronary heart disease Stroke Mother Pulmonary embolism Sister Cancer Breast Sister Cancer Breast cancer Social History Smoking Status: Current every day smoker Tobacco Type: Cigarettes Second Hand Exposure: No; Do You Dip or Chew Tobacco: No; Hx Alcohol Use: No Hx Substance Use: No Preferred Language: Zambian Communication Ability: Effective Communication Ability Comment: Pt is blind Director Of Clinical Services Required: No Beliefs That Will Affect Care: None marital status: Current Living Situation: Spouse Current Living Situation Comment: LIVES WITH current occupational status: 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 patient is blind. Head- atraumatic Eyes- blind ENT- oropharynx clear Neck- supple, no JVD. Lungs- clear to auscultation no wheezing or crackles. Heart- regular rhythm; no murmur, no gallop. Abdomen- normal bowel sounds, soft, nontender, no distension. Extremities- b/l pretibial edema present. No erythema seen. Neuro- alert, oriented ; ; no facial palsy; no dysarthria; moves extremities. Skin- warm & dry Results & Data Results & Data Vital Signs (Past 12 Hours) Vital Signs Temp Pulse Pulse Resp BP BP Pulse Ox 05/08/23 06:00 90 20 95/57 L 95 05/08/23 05:40 94 H 22 103/62 97 05/08/23 05:00 94 H 21 81/50 L 97 05/08/23 04:50 96 H 22 83/54 L 98 05/08/23 04:50 05/08/23 04:39 97 H 18 79/52 L 99 05/08/23 04:31 98 05/08/23 04:30 99 H 18 99 05/08/23 04:19 101 H 21 99 05/08/23 04:16 37 C 104 H 20 112/90 99 05/08/23 04:16 05/08/23 04:13 114 H O2 Del Method O2 Flow Rate FiO2 05/08/23 06:00 Nasal Cannula 2 05/08/23 05:40 Nasal Cannula 2 05/08/23 05:00 BiPAP 05/08/23 04:50 BiPAP 05/08/23 04:50 50 05/08/23 04:39 BiPAP 05/08/23 04:31 BiPAP 05/08/23 04:30 80 05/08/23 04:19 BiPAP 05/08/23 04:16 BiPAP 80 05/08/23 04:16 BiPAP 05/08/23 04:13 Diagnostic Findings Laboratory Results WBC 14.92 K/ul (4.8-10.8) H 05/08/23 04:22 RBC 3.99 M/uL (4.70-6.10) L 05/08/23 04:22 Hgb 11.6 g/dl (14.0-18.0) L 05/08/23 04:22 POC Hgb 11.6 g/dl (14.0-18.0) L 05/08/23 04:36 Hct 35.8 % (42.0-52.0) L 05/08/23 04:22 POC Hct 34 % (42-52) L 05/08/23 04:36 MCV 89.7 fL (80.0-100.0) 05/08/23 04:22 MCH 29.1 pg (25.0-34.0) 05/08/23 04:22 MCHC 32.4 g/dL (32.0-36.0) 05/08/23 04:22 RDW Std Deviation 45.0 fL (36.4-46.3) 05/08/23 04:22 RDW Coeff of Marva 13.8 % (11.5-14.5) 05/08/23 04:22 Plt Count 298 K/uL (130-400) 05/08/23 04:22 MPV 10.1 fL (9.4-12.4) 05/08/23 04:22 Immature Gran % (Auto) 0.9 % 05/08/23 04:22 Neut % (Auto) 70.4 % 05/08/23 04:22 Lymph % (Auto) 23.1 % 05/08/23 04:22 [place] % (Auto) 3.8 % 05/08/23 04:22 Eos % (Auto) 1.4 % 05/08/23 04:22 Baso % (Auto) 0.4 % 05/08/23 04:22 Neut # (Auto) 10.50 K/uL (1.40-6.50) H 05/08/23 04:22 Lymph # (Auto) 3.44 K/uL (1.20-3.40) H 05/08/23 04:22 [place] # (Auto) 0.57 K/uL (0.11-0.59) 05/08/23 04:22 Eos # (Auto) 0.21 K/uL (0.00-0.50) 05/08/23 04:22 Baso # (Auto) 0.06 K/uL (0.00-0.20) 05/08/23 04:22 Immature Gran # (Auto) 0.14 K/uL (0.01-0.20) 05/08/23 04:22 POC pH 7.30 (7.35-7.45) L 05/08/23 04:36 POC pCO2 52 mmHg (35-46) H 05/08/23 04:36 POC pO2 298 mmHg (80-95) H 05/08/23 04:36 POC HCO3 25 warren/L (19-24) H 05/08/23 04:36 POC Total CO2 27 mmol/L (24-31) 05/08/23 04:36 POC Base Excess -1.0 warren/L (-9-1.8) 05/08/23 04:36 POC ABG O2 Sat 100.0 % (90-95) H 05/08/23 04:36 POC Sodium 134 mmol/L (135-144) L 05/08/23 04:36 Sodium 133 mmol/L (136-145) L 05/08/23 04:22 POC Potassium 4.0 mmol/L (3.3-5.0) 05/08/23 04:36 Potassium 4.0 mmol/L (3.5-5.1) 05/08/23 04:22 Chloride 99 mmol/L (98-107) 05/08/23 04:22 Carbon Dioxide 27 mmol/L (21-32) 05/08/23 04:22 Anion Gap 7 (3-11) 05/08/23 04:22 BUN 27 mg/dl (6-23) H 05/08/23 04:22 Creatinine 1.31 mg/dl (0.6-1.4) 05/08/23 04:22 Est Cr Clr Drug Dosing 65.3 ml/min 05/08/23 04:22 Est GFR ( Amer) 61.3 ml/min 05/08/23 04:22 Est GFR (Non-Af Amer) 52.9 ml/min 05/08/23 04:22 BUN/Creatinine Ratio 20.6 (10-20) H 05/08/23 04:22 Glucose 307 mg/dl (70-99(Fasting)) H* 05/08/23 04:22 Lactate 2.5 mmol/L (0.4-2.0) H* 05/08/23 05:26 Calcium 8.6 mg/dl (8.6-10.3) 05/08/23 04:22 Total Bilirubin 0.3 mg/dl (0.2-1.0) 05/08/23 04:22 AST 18 U/L (13-39) 05/08/23 04:22 ALT 25 U/L (7-52) 05/08/23 04:22 Alkaline Phosphatase 109 U/L (34-104) H 05/08/23 04:22 Troponin I High Sens 429.8 pg/ml (0-20) H* D 05/08/23 06:18 Total Protein 6.9 gm/dl (6.0-8.3) 05/08/23 04:22 Albumin 3.5 gm/dl (3.4-5.0) 05/08/23 04:22 Globulin 3.4 gm/dl (2.5-4.0) 05/08/23 04:22 Albumin/Globulin Ratio 1.0 (0.9-2) 05/08/23 04:22 Adenovirus (PCR) Not Detected (NotDetected) 05/08/23 04:30 B. pertussis DNA (PCR) Not Detected (NotDetected) 05/08/23 04:30 B.parapertussis DNA PCR Not Detected (NotDetected) 05/08/23 04:30 C. pneumoniae DNA (PCR) Not Detected (NotDetected) 05/08/23 04:30 Coronavirus OC43 (PCR) Not Detected (NotDetected) 05/08/23 04:30 Coronavirus HKU1 (PCR) Not Detected (NotDetected) 05/08/23 04:30 Coronavirus 229E (PCR) Not Detected (NotDetected) 05/08/23 04:30 SARS-CoV-2 (PCR) Not Detected (NotDetected) 05/08/23 04:30 Coronavirus NL63 (PCR) Not Detected (NotDetected) 05/08/23 04:30 Human Metapneumovir PCR Not Detected (NotDetected) 05/08/23 04:30 Influenza Type A (PCR) Not Detected (NotDetected) 05/08/23 04:30 Influenza Type B (PCR) Not Detected (NotDetected) 05/08/23 04:30 M. pneumoniae (PCR) Not Detected (NotDetected) 05/08/23 04:30 Parainfluenza 1 (PCR) Not Detected (NotDetected) 05/08/23 04:30 Parainfluenza 2 (PCR) Not Detected (NotDetected) 05/08/23 04:30 Parainfluenza 3 (PCR) Not Detected (NotDetected) 05/08/23 04:30 Parainfluenza 4 (PCR) Not Detected (NotDetected) 05/08/23 04:30 RSV (PCR) Not Detected (NotDetected) 05/08/23 04:30 Entero/Rhino (PCR) Not Detected (NotDetected) 05/08/23 04:30 ECG Additional Comments: Initial EKG. Wide QRS rhythm with rate of 114. Nonspecific intraventricular block Repeat EKG. Normal sinus rhythm with rate of 88. Nonspecific intraventricular conduction delay. Nonspecific ST abnormalities Code Status & VTE Plan VTE Prophylaxis Plan VTE Prophylaxis will be ordered: Yes
[2023-05-08 07:50] LABS: Partial Thromboplastin Time 27 Seconds (21-31)
[2023-05-08] MEDS: HEPARIN SODIUM/DEXTROSE 25,000 UNITS/500 ML BAG IV SCH (07:53)
--- NOTE | 2023-05-08 08:06 | XRay Report ---
XR chest 1V portable HISTORY: 77 years-old Male Dyspnea acute shortness of breath COMPARISON: 04/01/2023 TECHNIQUE: AP view of the chest FINDINGS: Cardiomegaly with pulmonary vascular congestion and interstitial coarsening. Small pleural effusions with mild left basilar densities, likely atelectatic. Bones appear grossly intact. Thoracolumbar spin al fusion hardware. IMPRESSION: 1. Cardiomegaly with mild pulmonary edema. 2. Small pleural effusions. ACT 112: Negative or not required by law. The above report was generated using voice recognition software. It may contain grammatical, syntax o r spelling errors. Electronically signed by: Juaquin Gold M.D. 05/08/2023 8:04 AM
[2023-05-08 08:46] LABS: Base Excess ABG -1.2 mEq/L (-9-1.8); HCO3 ABG 25 mmol/L (19-24); PCO2 ABG 49 mmHg (35-46); PO2 ABG 120 mmHg (80-95); pH ABG 7.32 (7.35-7.45)
[2023-05-08 08:47] LABS: Allen Test Pos (Pos)
[2023-05-08] MEDS ORDERED: NITROGLYCERIN SL 0.4 MG/TAB TAB SL PRN (10:15)
[2023-05-08] MEDS ORDERED: PHARMACY GLYCEMIC MGMT CONSULT PRN (10:15)
[2023-05-08] MEDS ORDERED: GLUCOSE 40% GEL 15 GM TUBE PO PRN (10:15)
[2023-05-08] MEDS ORDERED: CARBOHYDRATES FOR HYPOGLYCEMIA PO PRN (10:15)
[2023-05-08] MEDS ORDERED: GLUCAGON FOR INJ 1 MG VIAL SQ PRN (10:15)
[2023-05-08] MEDS ORDERED: ALBUTEROL 0.083% NEBU SOLN 3 ML VIAL INH PRN (10:15)
[2023-05-08] MEDS ORDERED: GLUCOSE 10 TAB/TUBE PO PRN (10:15)
[2023-05-08] MEDS ORDERED: DEXTROSE 50% 50 ML SYRINGE IV PRN (10:15)
[2023-05-08 10:30] LABS: Appearance Urine Clear (Clear); Bacteria Urine Automated Negative (Negative); Bilirubin Urine Negative (Negative); Blood Urine Negative (Negative); Color Urine Yellow; Glucose Urine UA Trace (Negative); Ketones Urine Negative (Negative); Leukocyte Esterase Urine Negative (Negative); Nitrite Urine Negative (Negative); Protein Urine 2+ (Negative); RBC Urine Automated 0-4 /hpf (0-4); Specific Gravity Urine 1.015 (1.000-1.030); Urobilinogen Urine Negative (Negative); pH Urine 5.5 (4.5-7.5)
[2023-05-08] MEDS: ASCORBIC ACID 500 MG TAB PO SCH (11:27)
[2023-05-08] MEDS: MULTIVITAMIN TAB PO SCH (11:27)
[2023-05-08] MEDS: METOPROLOL SUCC 25MG EXT REL TAB PO SCH (11:27)
[2023-05-08] MEDS: ASPIRIN 325 MG ECTAB PO SCH (11:27)
[2023-05-08] MEDS: CETIRIZINE HCL 10 MG TABLET PO SCH (11:29)
[2023-05-08] MEDS: FAMOTIDINE 20 MG TAB PO SCH (11:30)
[2023-05-08] MEDS: DOCUSATE SODIUM 100 MG CAP PO SCH (11:30)
[2023-05-08] MEDS: ESCITALOPRAM OXALATE 10 MG TAB PO SCH (11:30)
[2023-05-08] MEDS: FERROUS SULFATE 325 MG TAB PO SCH (11:32)
[2023-05-08] MEDS: LEVOTHYROXINE SODIUM 50 MCG TABLET PO SCH (11:33)
[2023-05-08] MEDS: POTASSIUM CHLORIDE 10 MEQ TABCR PO SCH (11:33)
[2023-05-08] MEDS: FINASTERIDE 5 MG TAB PO SCH (11:34)
[2023-05-08] MEDS: TAMSULOSIN HCL 0.4 MG CAP PO SCH (11:35)
[2023-05-08] MEDS: INSULIN ASPART PER UNIT CHARGE SC SCH (12:43)
--- OUTSIDE RECORDS SUMMARY | 2023-05-08 13:05 | External Medical Summary ---
Author Name Unknown Address Unknown Organization [id number]:LABORATORY [facility] [place] - [address] [place] [address] Laboratory Report Ordering Provider Test Date Status SIDDHARTH LAWLER 04/13/2023 06:20:00 Final Observation Date Value Abnormality Reference (Units ) Status TSH 04/13/2023 06:20:00 2.94 0.27-4.20 (uIU/mL) Final Performing Location LABORATORY [facility] - [address] [place] [address]
--- OUTSIDE RECORDS SUMMARY | 2023-05-08 13:05 | External Medical Summary ---
Author Name Unknown Address Unknown Organization [id number]:LABORATORY [facility] [place] - [address] [facility] [address] Laboratory Report Ordering Provider Test Date Status IJEOMA JOHNSON 04/10/2023 07:36:35 Final Observation Date Value Abnormality Reference (Units ) Status Color of Urine by Auto 04/10/2023 07:36:35 Light Yellow Colorless, Light Yellow, Yellow, Dark Yellow Final Clarity, Urine 04/10/2023 07:36:35 Clear Clear Final Glucose [Mass/volume] in Urine by Automated test strip 04/10/2023 07:36:35 Negative Negative (mg/dL) Final Bilirubin.total [Presence] in Urine by Automated test strip 04/10/2023 07:36:35 Negative Negative Final Ketones [Mass/volume] in Urine by Automated test strip 04/10/2023 07:36:35 Negative Negative (mg/dL) Final Specific gravity, Urine 04/10/2023 07:36:35 1.008 1.003-1.030 Final Hemoglobin [Presence] in Urine by Automated test strip 04/10/2023 07:36:35 Negative Negative Final pH, Urine 04/10/2023 07:36:35 6.0 5.0-7.5 (Units) Final Protein [Mass/volume] in Urine by Automated test strip 04/10/2023 07:36:35 30 Abnormal Negative (mg/dL) Final Urobilinogen [Mass/volume] in Urine by Automated test strip 04/10/2023 07:36:35 Normal Normal (mg/dL) Final Nitrite [Presence] in Urine by Automated test strip 04/10/2023 07:36:35 Negative Negative Final Leukocyte esterase [Presence] in Urine by Automated test strip 04/10/2023 07:36:35 Negative Negative Final RBC, Urine 04/10/2023 07:36:35 0-2 0-2 (/HPF) Final WBC, Urine 04/10/2023 07:36:35 0-2 0-2 (/HPF) Final Bacteria [#/area] in Urine sediment by Microscopy high power field 04/10/2023 07:36:35 0-25 0-25 (/HPF) Final Hyaline casts, Urine 04/10/2023 07:36:35 5-9 Abnormal None (/LPF) Final CULTURE, URINE - [facility] 04/10/2023 07:36:35 Final Culture not indicated by uri nalysis results\[id number]\ Performing Location LABORATORY [facility] [place] - [address] [facility] [address]
--- OUTSIDE RECORDS SUMMARY | 2023-05-08 13:05 | External Medical Summary ---
Author Name Unknown Address Unknown Organization [id number]:LABORATORY [place] [address] Laboratory Report Ordering Provider Test Date Status IJEOMA JOHNSON 04/07/2023 05:58:00 Final Observation Date Value Abnormality Reference (Units ) Status BUN 04/07/2023 05:58:00 31 Above high normal 6-20 (mg/dL) Final Creatinine 04/07/2023 05:58:00 1.4 Above high normal 0.6-1.2 (mg/dL) Final Glomerular filtration rate/1.73 sq M.predicted [Volume Rate/Area] in Serum, Plasma or Blood by Creatinine-based formula (CKD-EPI) 04/07/2023 05:58:00 53 Below low normal >=60 (mL/min) Final eGFR is calculated based on the CKD-EPI 2020 equation SODIUM 04/07/2023 05:58:00 134 Below low normal 135 -146 (mmol/L) Final Potassium 04/07/2023 05:58:00 4.5 3.5-5.1 (m mol/L) Final Cl 04/07/2023 05:58:00 98 98-107 (mm ol/L) Final CO2 04/07/2023 05:58:00 27 22-32 (mmo l/L) Final Anion gap 04/07/2023 05:58:00 9 7-15 (mmol /L) Final Glucose 04/07/2023 05:58:00 139 Above high normal 70 -120 (mg/dL) Final Calcium 04/07/2023 05:58:00 9.6 8.4-10.2 ( mg/dL) Final Performing Location LABORATORY [place] [address]
--- OUTSIDE RECORDS SUMMARY | 2023-05-08 13:05 | External Medical Summary ---
Author Name Unknown Address Unknown Organization [id number]:LABORATORY [place] [address] Laboratory Report Ordering Provider Test Date Status HY,DEPAMPHILIS 04/20/2023 07:13:43 Final Observation Date Value Abnormality Reference (Units ) Status BUN 04/20/2023 07:13:43 28 Above high normal 6-20 (mg/dL) Final Creatinine 04/20/2023 07:13:43 1.4 Above high normal 0.6-1.2 (mg/dL) Final Glomerular filtration rate/1.73 sq M.predicted [Volume Rate/Area] in Serum, Plasma or Blood by Creatinine-based formula (CKD-EPI) 04/20/2023 07:13:43 52 Below low normal >=60 (mL/min) Final eGFR is calculated based on the CKD-EPI 2020 equation SODIUM 04/20/2023 07:13:43 136 135-146 (m mol/L) Final Potassium 04/20/2023 07:13:43 4.6 3.5-5.1 (m mol/L) Final Cl 04/20/2023 07:13:43 99 98-107 (mm ol/L) Final CO2 04/20/2023 07:13:43 25 22-32 (mmo l/L) Final Anion gap 04/20/2023 07:13:43 12 7-15 (mmol /L) Final Glucose 04/20/2023 07:13:43 115 70-120 (mg /dL) Final Calcium 04/20/2023 07:13:43 9.5 8.4-10.2 ( mg/dL) Final Performing Location LABORATORY [place] [address]
--- OUTSIDE RECORDS SUMMARY | 2023-05-08 13:05 | External Medical Summary ---
Author Name Unknown Address Unknown Organization K09:LABORATORY [place] [address] Laboratory Report Ordering Provider Test Date Status IJEOMA JOHNSON 04/07/2023 05:58:00 Final Observation Date Value Abnormality Reference (Units ) Status WBC, Total 04/07/2023 05:58:00 5.65 4.00-10.8 0 (K/uL) Final RBC 04/07/2023 05:58:00 4.02 4.50-5.25 (M/uL) Final Hemoglobin 04/07/2023 05:58:00 11.6 Below low normal 14 .0-16.8 (g/dL) Final HCT 04/07/2023 05:58:00 36.2 Below low normal 40. 0-48.4 (%) Final MCV 04/07/2023 05:58:00 90.0 82.0-99.5 (fL) Final MCH 04/07/2023 05:58:00 28.9 27.0-34.0 (pg) Final MCHC 04/07/2023 05:58:00 32.0 32.0-36.0 (g/dL) Final RDW 04/07/2023 05:58:00 14.1 11.5-15.5 (%) Final Platelets 04/07/2023 05:58:00 285 140-400 (K /uL) Final MPV 04/07/2023 05:58:00 10.0 6.6-11.1 ( fL) Final Performing Location LAB[facility]ATORY [place] [address]
--- OUTSIDE RECORDS SUMMARY | 2023-05-08 13:05 | External Medical Summary ---
Author Name Unknown Address Unknown Organization K09:LABORATORY [facility] - [address] [facility] [place] [address] Laboratory Report Ordering Provider Test Date Status IJEOMA JOHNSON 04/14/2023 06:00:00 Correction Observation Date Value Abnormality Reference (Units ) Status WBC, Total 04/14/2023 06:00:00 7.47 4.00-10.8 0 (K/uL) Final RBC 04/14/2023 06:00:00 3.79 4.50-5.25 (M/uL) Correction Analytical issue.

Changed result: Previously reported as 3.81 M/uL on 04/14/2023 at 0700 EST. Hemoglobin 04/14/2023 06:00:00 11.1 Below low normal 14 .0-16.8 (g/dL) Final HCT 04/14/2023 06:00:00 35.1 Below low normal 40. 0-48.4 (%) Correction Analytical issue.

Changed result: Previously reported as 31.1 % on 04/14/2023 at 0700 EST. MCV 04/14/2023 06:00:00 92.6 82.0-99.5 (fL) Correction Analytical issue.

C hanged result: Previously reported as 81.6 fL on 04/14/2023 at 0700 EST. MCH 04/14/2023 06:00:00 29.3 27.0-34.0 (pg) Correction Analytical issue.

Changed result: Previously reported as 29.1 pg on 04/14/2023 at 0700 EST. MCHC 04/14/2023 06:00:00 31.6 32.0-36.0 (g/dL) Correction Analytical issue.

Changed result: Previously reported as 35.7 g/dL on 04/14/2023 at 0700 EST. RDW 04/14/2023 06:00:00 14.4 11.5-15.5 (%) Correction Analytical issue.

Changed result: Previously reported as 14.0 % on 04/14/2023 at 0700 EST. Platelets 04/14/2023 06:00:00 284 140-400 (K /uL) Correction Analytical issue.

Changed result: Previously reported as 271 K/uL on 04/14/2023 at 0700 EST. MPV 04/14/2023 06:00:00 10.9 6.6-11.1 ( fL) Correction Analytical issue.

Changed result: Previously reported as 10.0 fL on 04/14/2023 at 0700 EST. Performing Location [facility] [address] [place] [address]
--- OUTSIDE RECORDS SUMMARY | 2023-05-08 13:05 | External Medical Summary ---
Author Name Unknown Address Unknown Organization [id number]:LABORATORY [place] [address] Laboratory Report Ordering Provider Test Date Status IJEOMA JOHNSON 04/14/2023 06:00:00 Final Observation Date Value Abnormality Reference (Units ) Status BUN 04/14/2023 06:00:00 33 Above high normal 6-20 (mg/dL) Final Creatinine 04/14/2023 06:00:00 1.6 Above high normal 0.6-1.2 (mg/dL) Final Glomerular filtration rate/1.73 sq M.predicted [Volume Rate/Area] in Serum, Plasma or Blood by Creatinine-based formula (CKD-EPI) 04/14/2023 06:00:00 46 Below low normal >=60 (mL/min) Final eGFR is calculated based on the CKD-EPI 2020 equation SODIUM 04/14/2023 06:00:00 135 135-146 (m mol/L) Final Potassium 04/14/2023 06:00:00 4.7 3.5-5.1 (m mol/L) Final Cl 04/14/2023 06:00:00 99 98-107 (mm ol/L) Final CO2 04/14/2023 06:00:00 24 22-32 (mmo l/L) Final Anion gap 04/14/2023 06:00:00 12 7-15 (mmol /L) Final Glucose 04/14/2023 06:00:00 122 Above high normal 70 -120 (mg/dL) Final Calcium 04/14/2023 06:00:00 9.4 8.4-10.2 ( mg/dL) Final Performing Location [facility]ORY [place] [address]
--- OUTSIDE RECORDS SUMMARY | 2023-05-08 13:05 | External Medical Summary ---
Author Name Unknown Address Unknown Organization [id number]:[facility] [place] [address] Laboratory Report Ordering Provider Test Date Status HY,DEPAMPHILIS 04/20/2023 07:13:43 Final Observation Date Value Abnormality Reference (Units ) Status WBC, Total 04/20/2023 07:13:43 6.89 4.00-10.8 0 (K/uL) Final RBC 04/20/2023 07:13:43 3.96 4.50-5.25 (M/uL) Final Hemoglobin 04/20/2023 07:13:43 11.6 Below low normal 14 .0-16.8 (g/dL) Final HCT 04/20/2023 07:13:43 36.9 Below low normal 40. 0-48.4 (%) Final MCV 04/20/2023 07:13:43 93.2 82.0-99.5 (fL) Final MCH 04/20/2023 07:13:43 29.3 27.0-34.0 (pg) Final MCHC 04/20/2023 07:13:43 31.4 32.0-36.0 (g/dL) Final RDW 04/20/2023 07:13:43 14.4 11.5-15.5 (%) Final Platelets 04/20/2023 07:13:43 251 140-400 (K /uL) Final MPV 04/20/2023 07:13:43 10.8 6.6-11.1 ( fL) Final Performing Location [facility] [place] [address]
--- NOTE | 2023-05-08 13:43 | Pharmacy Report ---
Pharmacy Glycemic Short Note 2 - Date of Service May 08, 2023 - Glycemic Short BSG Results (Last 24 hours): 05/08/23 05/08/23 04:22 12:33 Glucose 307 H* POC Glucose 166 H OUTPATIENT ANTIDIABETIC REGIMEN: * Metformin 500 mg PO BID * A1c = 7.4% ASSESSMENT: * Adrien is a T2DM admitted with an episode of shortness of breath and chest pain * BSG of 307 mg/dL in the ED. This improved to 166 mg/dL after only 5 units of short acting insulin. * During past admission (Mar 2023), patient required Lantus 5 units daily and Novolog 2-5 units ACHS. * Will start insulin conservatively given past use, A1c near goal on metformin, and NPO status. PLAN FOR INPATIENT GLYCEMIC CONTROL: * Hold outpatient oral diabetes medications * Basal insulin * Lantus 0-5 units SQ HS (5 units for BSG > 180) * Bolus insulin * NovoLog per scale ACHS or Q6hrs while NPO * Goal Range: Low 110 mg/dL - High 140 mg/dL * Correction Factor: 25 mg/dL/unit * Nutritional / Prandial insulin per carb ratio of 1 unit per 10 grams CHO consumed
[2023-05-08 14:49] LABS: ANTI-Xa, UFH(UnfractionatedHep 0.22 IU/ml (0.3-0.7)
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
[2023-05-08] MEDS: LANTUS PER UNIT CHARGE SC SCH (20:47)
[2023-05-08] MEDS: ATORVASTATIN 40 MG TAB PO SCH (20:48)
[2023-05-08] MEDS: ACETAMINOPHEN 325 MG TAB PO PRN (22:18)
[2023-05-08 22:21] LABS: ANTI-Xa, UFH(UnfractionatedHep 0.23 IU/ml (0.3-0.7)
[2023-05-09 05:21] LABS: Basophils # (auto) 0.05 K/uL (0.00-0.20); Basophils % (auto) 0.6 %; Eosinophils # (auto) 0.22 K/uL (0.00-0.50); Eosinophils % (auto) 2.6 %; Hematocrit (blood only) 31.7 % (42.0-52.0); Hemoglobin 10.3 g/dl (14.0-18.0); Immature Granulocytes # (auto) 0.05 K/uL (0.01-0.20); Immature Granulocytes % (auto) 0.6 %; Lymphocytes # (auto) 2.46 K/uL (1.20-3.40); Mean Corpuscular Hemoglobin 29.3 pg (25.0-34.0); Mean Corpuscular Hgb Conc 32.5 g/dL (32.0-36.0); Mean Corpuscular Volume 90.3 fL (80.0-100.0); Mean Platelet Volume 10.6 fL (9.4-12.4); Monocytes % (auto) 5.9 %; Neutrophils % (auto) 61.3 %; Platelet Count 245 K/uL (130-400); RDW Coefficient of Variation 14.5 % (11.5-14.5); RDW Standard Deviation 47.3 fL (36.4-46.3); Red Blood Count 3.51 M/uL (4.70-6.10); White Blood Count 8.48 K/ul (4.8-10.8)
[2023-05-09 05:39] LABS: BUN Creatinine Ratio 21.7 (10-20); Calcium 8.7 mg/dl (8.6-10.3); Creatinine Clr Calc Pharmacy 65.5 ml/min; Est GFR (African American) 62.4 ml/min; Est GFR (Non-African American) 53.9 ml/min; Magnesium 1.8 mg/dl (1.7-2.4); Phosphorus 3.9 mg/dl (2.5-4.9)
[2023-05-09 05:52] LABS: ANTI-Xa, UFH(UnfractionatedHep 0.31 IU/ml (0.3-0.7)
--- NOTE | 2023-05-09 07:44 | Electrocardiogram Report ---
Test Reason : Blood Pressure : / mmHG Vent. Rate : 088 BPM Atrial Rate : 088 BPM P-R Int : 176 ms QRS Dur : 118 ms QT Int : 386 ms P-R-T Axes : 109 -05 033 degrees QTc Int : 467 ms Normal sinus rhythm Non-specific intra-ventricular conduction delay Nonspecific ST abnormality Abnormal ECG When compared with ECG of 01-APR-2023 15:24, Criteria for Anterior infarct are no longer Present ST no longer elevated in Anterior leads ST now depressed in Lateral leads T wave inversion now evident in Inferior leads Confirmed by Devante Owens ([id number]) on 05/09/2023 7:43:56 AM Referred By: REFERRED SELF Confirmed By:Devante Owens
--- NOTE | 2023-05-09 08:18 | Hospitalist Progress Note ---
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 As per patient had some shortness of breath around 11:30 PM last night but he went to sleep and he woke up around 2:30 AM and was struggling to breathe and somewhat diaphoretic when she called EMS and brought him here. In the ER he had an episode of chest pain but that got resolved now. Non-ST elevated NM An episode of chest pain EKG w/no acute ST changes Initial troponin 117 and repeat troponin 429 -> peaked at 6,700 Currently chest pain-free Started on IV heparin, continue Echo obtained -there is akinesis of the apical segments with diffuse hypokinesis noted otherwise, the lateral wall is relatively spared. LV systolic function is severely reduced. LVEF 20 to 25%. There is severe mitral annular calcification. There is no mitral valve stenosis. There is mild mitral regurg. Grade 1 diastolic dysfunction. Compared to the images obtained at the time of the previous study dated April 04, 2023, apical akinesis is noted at that time, with interval development of severe diffuse hypokinesis otherwise and interval decline in EF from 40 - 45% to 20 - 25%. 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 * Continue unfractioned heparin to complete at least a 48-hour course * Discontinue Ecotrin 325 mg daily in favor of 81 mg daily and start clopidogrel 75 mg daily * Continue metoprolol succinate 25 mg daily * Add Entresto 24/26 mg p.o. twice daily * Continue atorvastatin 40 mg daily- check fasting lipid panel on 05/10. Acute Heart failure with reduced ejection fraction Echo done in April 04, 2023 showed EF of 40 to 45% On home on Lasix 30 mg daily Received IV Lasix 40 mg in the ER Chest x-ray mild pulmonary edema Currently patient states shortness of breath improved Blood pressure somewhat low yesterday, cont. to closely monitor Closely monitor Monitor I's and O's and daily weights further diuretics per Cardiology Elevated lactic acid Possibly from his severe LV dysfunction and transient hypoxia Leukocytosis -> now WBC trending down Procalcitonin negative. History of recurrent UTI, current UA negative. Blood cultx ngtd Diabetes hyperglycemia Hold metformin Sliding scale Close monitor History of CAD On aspirin, statin, beta-karley Will follow echo History of PVD s/p stent On aspirin and statin History of PSVT On metoprolol succinate Will monitor BPH On flomax and finasteride Hypothyroidism on Synthyroid Hypertension On metoprolol succinate Hyperlipidemia on statin History of occipital infarction Blindness On aspirin and statin History of [place] cell carcinoma left ear S/p surgery Chronic anemia hemoglobin stable at 11.6 DVT prophylaxis IV heparin Disposition telemetry Full code Admission and Anticipated Discharge Date Admission Date: May 08, 2023 Subjective Pt seen in follow up of chest pain, elev. trop. (NSTEMI), CHF exacerb. (acute syst. HF) Currently laying in bed, in no acute distress Denies chest pain or shortness of breath. Denies any palpitations. Says he feels comfortable. Review of Systems Review of Systems: All systems reviewed & are unremarkable except as noted in Subjective Physical Exam Physical Exam: General- obese M in NAD. patient is blind. Head- atraumatic Eyes- blind ENT- oropharynx clear Neck- supple, no JVD. Lungs- clear to auscultation, diminished at bases. no wheezing or crackles. Heart- regular rhythm; no murmur, no gallop. Abdomen- normal bowel sounds, soft, nontender, no distension. Extremities- b/l pretibial edema present. No erythema seen. Neuro- alert, oriented ; no facial palsy; no dysarthria; moves extremities. Skin- warm & dry Results & Data Results & Data Vital Signs (Past 12 Hours) Vital Signs Temp Pulse Pulse Resp BP Pulse Ox O2 Del Method 05/09/23 07:55 77 05/09/23 07:30 36.5 C 87 20 144/74 H 99 Nasal Cannula 05/09/23 03:15 36.4 C L 72 18 115/67 99 Nasal Cannula 05/08/23 21:58 72 05/08/23 21:43 36.8 C 71 18 104/55 L 96 BiPAP 05/08/23 21:26 77 15 95 O2 Flow Rate 05/09/23 07:55 05/09/23 07:30 2 05/09/23 03:15 2 05/08/23 21:58 05/08/23 21:43 05/08/23 21:26 2 Laboratory Results 05/09/23 05/08/23 05/08/23 Range/Units 04:08 21:34 20:19 WBC 8.48 (4.8-10.8) K/ul RBC 3.51 L (4.70-6.10) M/uL Hgb 10.3 L (14.0-18.0) g/dl Hct 31.7 L (42.0-52.0) % MCV 90.3 (80.0-100.0) fL MCH 29.3 (25.0-34.0) pg MCHC 32.5 (32.0-36.0) g/dL RDW Std Deviation 47.3 H (36.4-46.3) fL RDW Coeff of Marva 14.5 (11.5-14.5) % Plt Count 245 (130-400) K/uL MPV 10.6 (9.4-12.4) fL Immature Gran % (Auto) 0.6 % Neut % (Auto) 61.3 % Lymph % (Auto) 29.0 % [place] % (Auto) 5.9 % Eos % (Auto) 2.6 % Baso % (Auto) 0.6 % Neut # (Auto) 5.20 (1.40-6.50) K/uL Lymph # (Auto) 2.46 (1.20-3.40) K/uL [place] # (Auto) 0.50 (0.11-0.59) K/uL Eos # (Auto) 0.22 (0.00-0.50) K/uL Baso # (Auto) 0.05 (0.00-0.20) K/uL Immature Gran # (Auto) 0.05 (0.01-0.20) K/uL Heparin Anti-Xa, Unfract 0.31 0.23 L (0.3-0.7) IU/ml ABG pH (7.35-7.45) ABG pCO2 (35-46) mmHg ABG pO2 (80-95) mmHg ABG HCO3 (19-24) mmol/L ABG O2 Saturation (90-95) % ABG Base Excess (-9-1.8) mEq/L Joseph Test (Pos) Oxygen Given Sodium 135 L (136-145) mmol/L Potassium 4.0 (3.5-5.1) mmol/L Chloride 100 (98-107) mmol/L Carbon Dioxide 27 (21-32) mmol/L Anion Gap 8 (3-11) BUN 28 H (6-23) mg/dl Creatinine 1.29 (0.6-1.4) mg/dl Est Cr Clr Drug Dosing 65.5 ml/min Est GFR ( Amer) 62.4 ml/min Est GFR (Non-Af Amer) 53.9 ml/min BUN/Creatinine Ratio 21.7 H (10-20) Glucose 150 H (70-99(Fasting)) mg/dl POC Glucose 154 H (70-99) mg/dl Calcium 8.7 (8.6-10.3) mg/dl Phosphorus 3.9 (2.5-4.9) mg/dl Magnesium 1.8 (1.7-2.4) mg/dl Troponin I High Sens 5552.3 H* (0-20) pg/ml Procalcitonin (0-0.5) ng/ml Urine Color Urine Appearance (Clear) Urine pH (4.5-7.5) Ur Specific Burson (1.000-1.030) Urine Protein (Negative) Urine Glucose (UA) (Negative) Urine Ketones (Negative) Urine Blood (Negative) Urine Nitrite (Negative) Urine Bilirubin (Negative) Urine Urobilinogen (Negative) Ur Leukocyte Esterase (Negative) Urine WBC (Auto) (0-5) /hpf Urine RBC (Auto) (0-4) /hpf U Hyaline Cast (Auto) (0-5) /lpf U Epithel Cells (Auto) (0-5) /lpf Urine Bacteria (Auto) (Negative) 05/08/23 05/08/23 05/08/23 Range/Units 17:24 17:18 13:55 WBC (4.8-10.8) K/ul RBC (4.70-6.10) M/uL Hgb (14.0-18.0) g/dl Hct (42.0-52.0) % MCV (80.0-100.0) fL MCH (25.0-34.0) pg MCHC (32.0-36.0) g/dL RDW Std Deviation (36.4-46.3) fL RDW Coeff of Marva (11.5-14.5) % Plt Count (130-400) K/uL MPV (9.4-12.4) fL Immature Gran % (Auto) % Neut % (Auto) % Lymph % (Auto) % [place] % (Auto) % Eos % (Auto) % Baso % (Auto) % Neut # (Auto) (1.40-6.50) K/uL Lymph # (Auto) (1.20-3.40) K/uL [place] # (Auto) (0.11-0.59) K/uL Eos # (Auto) (0.00-0.50) K/uL Baso # (Auto) (0.00-0.20) K/uL Immature Gran # (Auto) (0.01-0.20) K/uL Heparin Anti-Xa, Unfract 0.22 L (0.3-0.7) IU/ml ABG pH (7.35-7.45) ABG pCO2 (35-46) mmHg ABG pO2 (80-95) mmHg ABG HCO3 (19-24) mmol/L ABG O2 Saturation (90-95) % ABG Base Excess (-9-1.8) mEq/L Joseph Test (Pos) Oxygen Given Sodium (136-145) mmol/L Potassium (3.5-5.1) mmol/L Chloride (98-107) mmol/L Carbon Dioxide (21-32) mmol/L Anion Gap (3-11) BUN (6-23) mg/dl Creatinine (0.6-1.4) mg/dl Est Cr Clr Drug Dosing ml/min Est GFR ( Amer) ml/min Est GFR (Non-Af Amer) ml/min BUN/Creatinine Ratio (10-20) Glucose (70-99(Fasting)) mg/dl POC Glucose 128 H (70-99) mg/dl Calcium (8.6-10.3) mg/dl Phosphorus (2.5-4.9) mg/dl Magnesium (1.7-2.4) mg/dl Troponin I High Sens 6773.2 H* D (0-20) pg/ml Procalcitonin (0-0.5) ng/ml Urine Color Urine Appearance (Clear) Urine pH (4.5-7.5) Ur Specific [place] (1.000-1.030) Urine Protein (Negative) Urine Glucose (UA) (Negative) Urine Ketones (Negative) Urine Blood (Negative) Urine Nitrite (Negative) Urine Bilirubin (Negative) Urine Urobilinogen (Negative) Ur Leukocyte Esterase (Negative) Urine WBC (Auto) (0-5) /hpf Urine RBC (Auto) (0-4) /hpf U Hyaline Cast (Auto) (0-5) /lpf U Epithel Cells (Auto) (0-5) /lpf Urine Bacteria (Auto) (Negative) 05/08/23 05/08/23 05/08/23 Range/Units 12:33 11:01 10:15 WBC (4.8-10.8) K/ul RBC (4.70-6.10) M/uL Hgb (14.0-18.0) g/dl Hct (42.0-52.0) % MCV (80.0-100.0) fL MCH (25.0-34.0) pg MCHC (32.0-36.0) g/dL RDW Std Deviation (36.4-46.3) fL RDW Coeff of Marva (11.5-14.5) % Plt Count (130-400) K/uL MPV (9.4-12.4) fL Immature Gran % (Auto) % Neut % (Auto) % Lymph % (Auto) % [place] % (Auto) % Eos % (Auto) % Baso % (Auto) % Neut # (Auto) (1.40-6.50) K/uL Lymph # (Auto) (1.20-3.40) K/uL [place] # (Auto) (0.11-0.59) K/uL Eos # (Auto) (0.00-0.50) K/uL Baso # (Auto) (0.00-0.20) K/uL Immature Gran # (Auto) (0.01-0.20) K/uL Heparin Anti-Xa, Unfract (0.3-0.7) IU/ml ABG pH (7.35-7.45) ABG pCO2 (35-46) mmHg ABG pO2 (80-95) mmHg ABG HCO3 (19-24) mmol/L ABG O2 Saturation (90-95) % ABG Base Excess (-9-1.8) mEq/L Joseph Test (Pos) Oxygen Given Sodium (136-145) mmol/L Potassium (3.5-5.1) mmol/L Chloride (98-107) mmol/L Carbon Dioxide (21-32) mmol/L Anion Gap (3-11) BUN (6-23) mg/dl Creatinine (0.6-1.4) mg/dl Est Cr Clr Drug Dosing ml/min Est GFR ( Amer) ml/min Est GFR (Non-Af Amer) ml/min BUN/Creatinine Ratio (10-20) Glucose (70-99(Fasting)) mg/dl POC Glucose 166 H (70-99) mg/dl Calcium (8.6-10.3) mg/dl Phosphorus (2.5-4.9) mg/dl Magnesium (1.7-2.4) mg/dl Troponin I High Sens 3064.4 H* D (0-20) pg/ml Procalcitonin (0-0.5) ng/ml Urine Color Yellow Urine Appearance Clear (Clear) Urine pH 5.5 (4.5-7.5) Ur Specific [place] 1.015 (1.000-1.030) Urine Protein 2+ H (Negative) Urine Glucose (UA) Trace H (Negative) Urine Ketones Negative (Negative) Urine Blood Negative (Negative) Urine Nitrite Negative (Negative) Urine Bilirubin Negative (Negative) Urine Urobilinogen Negative (Negative) Ur Leukocyte Esterase Negative (Negative) Urine WBC (Auto) 1-5 (0-5) /hpf Urine RBC (Auto) 0-4 (0-4) /hpf U Hyaline Cast (Auto) 1-5 (0-5) /lpf U Epithel Cells (Auto) 5-10 H (0-5) /lpf Urine Bacteria (Auto) Negative (Negative) 05/08/23 05/08/23 Range/Units 08:39 05:26 WBC (4.8-10.8) K/ul RBC (4.70-6.10) M/uL Hgb (14.0-18.0) g/dl Hct (42.0-52.0) % MCV (80.0-100.0) fL MCH (25.0-34.0) pg MCHC (32.0-36.0) g/dL RDW Std Deviation (36.4-46.3) fL RDW Coeff of Marva (11.5-14.5) % Plt Count (130-400) K/uL MPV (9.4-12.4) fL Immature Gran % (Auto) % Neut % (Auto) % Lymph % (Auto) % [place] % (Auto) % Eos % (Auto) % Baso % (Auto) % Neut # (Auto) (1.40-6.50) K/uL Lymph # (Auto) (1.20-3.40) K/uL [place] # (Auto) (0.11-0.59) K/uL Eos # (Auto) (0.00-0.50) K/uL Baso # (Auto) (0.00-0.20) K/uL Immature Gran # (Auto) (0.01-0.20) K/uL Heparin Anti-Xa, Unfract (0.3-0.7) IU/ml ABG pH 7.32 L (7.35-7.45) ABG pCO2 49 H (35-46) mmHg ABG pO2 120 H (80-95) mmHg ABG HCO3 25 H (19-24) mmol/L ABG O2 Saturation 99.0 H (90-95) % ABG Base Excess -1.2 (-9-1.8) mEq/L Joseph Test Pos (Pos) Oxygen Given 2L Sodium (136-145) mmol/L Potassium (3.5-5.1) mmol/L Chloride (98-107) mmol/L Carbon Dioxide (21-32) mmol/L Anion Gap (3-11) BUN (6-23) mg/dl Creatinine (0.6-1.4) mg/dl Est Cr Clr Drug Dosing ml/min Est GFR ( Amer) ml/min Est GFR (Non-Af Amer) ml/min BUN/Creatinine Ratio (10-20) Glucose (70-99(Fasting)) mg/dl POC Glucose (70-99) mg/dl Calcium (8.6-10.3) mg/dl Phosphorus (2.5-4.9) mg/dl Magnesium (1.7-2.4) mg/dl Troponin I High Sens (0-20) pg/ml Procalcitonin 0.08 (0-0.5) ng/ml Urine Color Urine Appearance (Clear) Urine pH (4.5-7.5) Ur Specific [place] (1.000-1.030) Urine Protein (Negative) Urine Glucose (UA) (Negative) Urine Ketones (Negative) Urine Blood (Negative) Urine Nitrite (Negative) Urine Bilirubin (Negative) Urine Urobilinogen (Negative) Ur Leukocyte Esterase (Negative) Urine WBC (Auto) (0-5) /hpf Urine RBC (Auto) (0-4) /hpf U Hyaline Cast (Auto) (0-5) /lpf U Epithel Cells (Auto) (0-5) /lpf Urine Bacteria (Auto) (Negative) Medications Administered Current Inpatient Medications Acetaminophen (Acetaminophen 325 Mg Tab) 650 mg PO Q4H PRN PRN Reason: Pain or Fever Stop: 06/07/23 10:14 Last Admin: 05/09/23 05:30 Dose: 650 mg Albuterol (Albuterol 0.083% Nebu Soln 3 Ml Vial) 2.5 mg INH Q4H PRN; Protocol PRN Reason: Shortness Of Breath Or Wheezing Stop: 06/07/23 10:14 Ascorbic Acid (Ascorbic Acid 500 Mg Tab) 500 mg PO DAILY [facility] Stop: 06/07/23 10:29 Last Admin: 05/09/23 08:50 Dose: 500 mg Aspirin (Aspirin 81 Mg Ectab) 81 mg PO QAM [facility] Stop: 06/09/23 08:59 Atorvastatin Calcium (Atorvastatin 40 Mg Tab) 40 mg PO HS [facility] Stop: 06/07/23 20:59 Last Admin: 05/08/23 20:48 Dose: 40 mg Cetirizine HCl (Cetirizine Hcl 10 Mg Tablet) 10 mg PO DAILY [facility] Stop: 06/07/23 10:29 Last Admin: 05/09/23 08:51 Dose: 10 mg Clopidogrel Bisulfate (Clopidogrel Bisulfate 75 Mg Tab) 75 mg PO QAM [facility] Stop: 06/08/23 10:14 Last Admin: 05/09/23 10:56 Dose: 75 mg Dextrose (Dextrose 50% 50 Ml Syringe) 25 - 50 ml IV UD PRN; Protocol PRN Reason: Hypoglycemia Protocol Stop: 06/07/23 10:14 Docusate Sodium (Docusate Sodium 100 Mg Cap) 100 mg PO BID [facility] Stop: 06/07/23 10:29 Last Admin: 05/09/23 08:51 Dose: 100 mg Escitalopram Oxalate (Escitalopram Oxalate 10 Mg Tab) 10 mg PO QAM [facility] Stop: 06/07/23 10:29 Last Admin: 05/09/23 08:51 Dose: 10 mg Famotidine (Famotidine 20 Mg Tab) 20 mg PO BIDM [facility] Stop: 06/07/23 10:29 Last Admin: 05/09/23 08:50 Dose: 20 mg Ferrous Sulfate (Ferrous Sulfate 325 Mg Tab) 325 mg PO DAILY [facility] Stop: 06/07/23 10:29 Last Admin: 05/09/23 08:51 Dose: 325 mg Finasteride (Finasteride 5 Mg Tab) 5 mg PO QDL [facility] Stop: 06/07/23 11:29 Last Admin: 05/09/23 10:56 Dose: 5 mg Glucagon (Glucagon For Inj 1 Mg Vial) 1 mg SQ UD PRN; Protocol PRN Reason: Hypoglycemia Protocol Stop: 06/07/23 10:14 Glucose (Glucose 10 Tab/Tube) 4 - 8 tab PO UD PRN; Protocol PRN Reason: Hypoglycemia Treatment Stop: 06/07/23 10:14 Glucose (Glucose 40% Gel 15 Gm Tube) 15 - 30 gm PO UD PRN; Protocol PRN Reason: Hypoglycemia Protocol Stop: 06/07/23 10:14 Heparin Sodium/Dextrose (Heparin Sodium/Dextrose) 25,000 units in 500 mls @ 24 mls/hr IV .[id number] [facility]; Protocol Stop: 06/07/23 07:44 Last Admin: 05/09/23 07:12 Dose: 1,200 units/hr, 24 mls/hr Insulin Aspart (Insulin Aspart Per Unit Charge) 0 units SC ACHS [facility] Stop: 06/07/23 11:14 Last Admin: 05/09/23 12:52 Dose: 5 units Insulin Glargine (Lantus Per Unit Charge) 0 units SC HS [facility]; Protocol Stop: 06/07/23 20:59 Last Admin: 05/08/23 20:47 Dose: Not Given Levothyroxine Sodium (Levothyroxine Sodium 50 Mcg Tablet) [facility] Stop: 06/07/23 10:29 Last Admin: 05/09/23 05:31 Dose: 50 mcg Metoprolol Succinate (Metoprolol Succ 25mg Ext Rel Tab) 25 mg PO DAILY [facility] Stop: 06/07/23 10:14 Last Admin: 05/09/23 08:51 Dose: 25 mg Miscellaneous (Carbohydrates For Hypoglycemia ) 15 - 30 gm PO UD PRN PRN Reason: Hypoglycemia Protocol Stop: 06/07/23 10:14 Miscellaneous Information (Pharmacy Glycemic Mgmt Consult) 1 each N/A UD PRN; Protocol PRN Reason: Consult Stop: 06/07/23 10:14 Multivitamins (Multivitamin Tab) 1 tab PO DAILY [facility] Stop: 06/07/23 10:14 Last Admin: 05/09/23 08:51 Dose: 1 tab Nitroglycerin (Nitroglycerin Sl 0.4 Mg/Tab Tab) 0.4 mg SL Q5M PRN PRN Reason: Chest Pain Stop: 06/07/23 10:14 Potassium Chloride (Potassium Chloride 10 Meq Tabcr) 10 meq PO DAILY [facility] Stop: 06/07/23 10:29 Last Admin: 05/09/23 08:51 Dose: 10 meq Tamsulosin HCl (Tamsulosin Hcl 0.4 Mg Cap) 0.4 mg PO DAILY [facility] Stop: 06/07/23 10:29 Last Admin: 05/09/23 08:51 Dose: 0.4 mg
--- NOTE | 2023-05-09 09:42 | Cardiology Progress Note ---
Date of Service May 09, 2023 Assessment & Plan (1) HFrEF (heart failure with reduced ejection fraction): (2) Ischemic cardiomyopathy: (3) NSTEMI (non-ST elevated myocardial infarction): Plan Transthoracic echocardiogram performed 05/08/2023 revealed severe left ventricul ar systolic dysfunction with ejection fraction the range of 20-25%. Compared to March, the apical akinesis noted on the echocardiogram is unchanged, but there has been interval development of severe diffuse hypokinesis with sparing of the lateral wall, and the ejection fraction has declined from 40- 45% to 20- 25%. High-sensitivity troponin peaked at 6,773 and has trended down to 5,552 PG per mL as of 21:34 last evening. Lactate 2.5-->2.3-->1.4 mmol/ liter EKG performed this morning 05/09/2023 at 5:27 AM and reviewed independently reveals sinus rhythm at 77 bpm with age-indeterminate septal infarction pattern noted in lead V2. The ST segment depression previously observed in the lateral leads has resolved with normal T waves noted in the lateral precordial and high lateral leads. Patient with large LAD/circumflex territory UT in 1998 with findings of 50% proximal to mid LAD stenosis and 90% distal LAD stenosis at that time, 100% chronic occlusion of the circumflex at that time and 60% RCA lesion. 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 * Continue unfractioned heparin to complete at least a 48-hour course * Discontinue Ecotrin 325 mg daily in favor of 81 mg daily and start clopidogrel 75 mg daily * Continue metoprolol succinate 25 mg daily * Add Entresto 24/26 mg p.o. twice daily * Continue atorvastatin 40 mg daily- check fasting lipid panel on 05/10. I called patient's girlfriend Suzanne, with whom he lives and provided updates. She states patient has 2 children, Lukasz, who lives locally in [place], and is actually currently admitted to [facility] having apparently had a cholecystectomy. The patient also has a daughter, Grace Granda, who lives in [place], I called her, phone #[phone] and provided updates. Admission and Anticipated Discharge Date Admission Date: May 08, 2023 Subjective Patient seen in follow up. Feels well. Telemetry reveals SR in the 80s. Denies chest pain or shortness of breath. Physical Exam Constitutional: WD/WN, vitals as above Respiratory: Auscultation: + diminished lung sounds (mildly decreased breath sounds at the bases ); no crackles and no wheezes Cardiovascular: Rate/Rhythm: regular rate and regular rhythm Heart Sounds: + murmur (1/6 SM ) Extremities: + edema (1+ LE edema ) Gastrointestinal (Abdomen): normal bowel sounds, soft, nontender, no hepatosplenomegaly Neurologic: blind (chronic) right sided weakness, chronic Results & Data Vital Signs (Past 12 Hours) Vital Signs Temp Pulse Pulse Resp BP Pulse Ox O2 Del Method 05/09/23 07:55 77 05/09/23 07:30 36.5 C 87 20 144/74 H 99 Nasal Cannula 05/09/23 03:15 36.4 C L 72 18 115/67 99 Nasal Cannula 05/08/23 21:58 72 05/08/23 21:43 36.8 C 71 18 104/55 L 96 BiPAP O2 Flow Rate 05/09/23 07:55 05/09/23 07:30 2 05/09/23 03:15 2 05/08/23 21:58 05/08/23 21:43 Laboratory Results Cardiac Enzymes 05/08/23 05/08/23 05/08/23 Range/Units 11:01 17:18 21:34 Troponin I High Sens 3064.4 H* D 6773.2 H* D 5552.3 H* (0-20) pg/ml CBC 05/09/23 Range/Units 04:08 WBC 8.48 (4.8-10.8) K/ul RBC 3.51 L (4.70-6.10) M/uL Hgb 10.3 L (14.0-18.0) g/dl Hct 31.7 L (42.0-52.0) % Plt Count 245 (130-400) K/uL Neut # (Auto) 5.20 (1.40-6.50) K/uL Lymph # (Auto) 2.46 (1.20-3.40) K/uL [place] # (Auto) 0.50 (0.11-0.59) K/uL Eos # (Auto) 0.22 (0.00-0.50) K/uL Baso # (Auto) 0.05 (0.00-0.20) K/uL Comprehensive Metabolic Panel 05/09/23 Range/Units 04:08 Sodium 135 L (136-145) mmol/L Potassium 4.0 (3.5-5.1) mmol/L Chloride 100 (98-107) mmol/L Carbon Dioxide 27 (21-32) mmol/L BUN 28 H (6-23) mg/dl Creatinine 1.29 (0.6-1.4) mg/dl Glucose 150 H (70-99(Fasting)) mg/dl Calcium 8.7 (8.6-10.3) mg/dl
[2023-05-09] MEDS ORDERED: Nursing to Pharmacy Communication SCH (10:15)
[2023-05-09] MEDS: CLOPIDOGREL BISULFATE 75 MG TAB PO SCH (10:56)
[2023-05-09] MEDS: FUROSEMIDE INJ 20 MG/2 ML VIAL IV ONE (10:58)
[2023-05-09] MEDS: INSULIN ASPART PER UNIT CHARGE SC SCH (12:52)
--- NOTE | 2023-05-09 21:42 | Electrocardiogram Report ---
Test Reason : Blood Pressure : / mmHG Vent. Rate : 114 BPM Atrial Rate : 000 BPM P-R Int : 000 ms QRS Dur : 130 ms QT Int : 366 ms P-R-T Axes : 000 014 058 degrees QTc Int : 504 ms Sinus rhythm Non-specific intra-ventricular conduction block Abnormal ECG When compared with ECG of 01-APR-2023 15:24, Vent. rate has increased BY 40 BPM Confirmed by Devante Owens ([id number]) on 05/09/2023 9:41:45 PM Referred By: REFERRED SELF Confirmed By:Devante Owens
--- NOTE | 2023-05-10 06:19 | Electrocardiogram Report ---
Test Reason : Blood Pressure : / mmHG Vent. Rate : 073 BPM Atrial Rate : 073 BPM P-R Int : 164 ms QRS Dur : 118 ms QT Int : 408 ms P-R-T Axes : 048 -01 072 degrees QTc Int : 449 ms Normal sinus rhythm Septal infarct , age undetermined Abnormal ECG When compared with ECG of 08-MAY-2023 07:51, Septal infarct is now Present Confirmed by Devante Owens ([id number]) on 05/10/2023 6:19:31 AM Referred By: REFERRED SELF Confirmed By:Devante Owens
[2023-05-10 06:39] LABS: Hematocrit (blood only) 33.7 % (42.0-52.0); Hemoglobin 10.9 g/dl (14.0-18.0); Mean Corpuscular Hemoglobin 29.1 pg (25.0-34.0); Mean Corpuscular Hgb Conc 32.3 g/dL (32.0-36.0); Mean Corpuscular Volume 89.9 fL (80.0-100.0); Mean Platelet Volume 10.4 fL (9.4-12.4); Platelet Count 263 K/uL (130-400); RDW Coefficient of Variation 14.4 % (11.5-14.5); RDW Standard Deviation 46.7 fL (36.4-46.3); Red Blood Count 3.75 M/uL (4.70-6.10); White Blood Count 8.48 K/ul (4.8-10.8)
--- NOTE | 2023-05-10 06:42 | Electrocardiogram Report ---
Test Reason : Blood Pressure : / mmHG Vent. Rate : 077 BPM Atrial Rate : 077 BPM P-R Int : 162 ms QRS Dur : 122 ms QT Int : 438 ms P-R-T Axes : 039 002 002 degrees QTc Int : 495 ms Normal sinus rhythm Septal infarct , age undetermined Abnormal ECG When compared with ECG of 08-MAY-2023 07:51, (unconfirmed) Septal infarct is now Present Confirmed by Devante Owens ([id number]) on 05/10/2023 6:41:44 AM Referred By: REFERRED SELF Confirmed By:Devante Owens
[2023-05-10 06:58] LABS: BUN Creatinine Ratio 15.5 (10-20); Calcium 9.1 mg/dl (8.6-10.3); Chol HDL Ratio 4.5 (0-5); Creatinine Clr Calc Pharmacy 54.3 ml/min; Est GFR (Non-African American) 43.2 ml/min; Magnesium 1.9 mg/dl (1.7-2.4); Phosphorus 3.6 mg/dl (2.5-4.9); Potassium 4.5 mmol/L (3.5-5.1)
[2023-05-10 07:15] LABS: ANTI-Xa, UFH(UnfractionatedHep 0.32 IU/ml (0.3-0.7)
[2023-05-10] MEDS: ASPIRIN 81 MG ECTAB PO SCH (07:51)
--- NOTE | 2023-05-10 08:17 | Hospitalist Progress Note ---
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 As per patient had some shortness of breath around 11:30 PM last night but he went to sleep and he woke up around 2:30 AM and was struggling to breathe and somewhat diaphoretic when she called EMS and brought him here. In the ER he had an episode of chest pain but that got resolved now. Non-ST elevated DC An episode of chest pain EKG w/no acute ST changes Initial troponin 117 and repeat troponin 429 -> peaked at 6,700 Currently chest pain-free Started on IV heparin Echo obtained -there is akinesis of the apical segments with diffuse hypokinesis noted otherwise, the lateral wall is relatively spared. LV systolic function is severely reduced. LVEF 20 to 25%. There is severe mitral annular calcification. There is no mitral valve stenosis. There is mild mitral regurg. Grade 1 diastolic dysfunction. Compared to the images obtained at the time of the previous study dated April 04, 2023, apical akinesis is noted at that time, with interval development of severe diffuse hypokinesis otherwise and interval decline in EF from 40 - 45% to 20 - 25%. 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 * DC heparin as completed 48-hour course -> transition to sq lovenox for dvt ppx * Discontinue Ecotrin 325 mg daily in favor of 81 mg daily and start clopidogrel 75 mg daily * Continue metoprolol succinate 25 mg daily * Continue atorvastatin 40 mg daily, LDL 49 * Hold off on additional diuretics, ACEI, ARB, or ARNI given slight up trend in creatinine. Acute Heart failure with reduced ejection fraction Echo done in April 04, 2023 showed EF of 40 to 45% On home on Lasix 30 mg daily Received IV Lasix 40 mg in the ER Chest x-ray mild pulmonary edema Currently patient states shortness of breath improved Blood pressure occasionally on lower side, cont. to closely monitor Closely monitor Monitor I's and O's and daily weights further diuretics per Cardiology Elevated lactic acid Possibly from his severe LV dysfunction and transient hypoxia Leukocytosis -> now WBC trending down Procalcitonin negative. History of recurrent UTI, current UA negative. Blood cultx ngtd Diabetes hyperglycemia Hold metformin Sliding scale Close monitor History of CAD On aspirin, statin, beta-karley, start plavix, as above echo obtained - as above History of PVD s/p stent On aspirin and statin History of PSVT On metoprolol succinate Will monitor BPH On flomax and finasteride Hypothyroidism on Synthyroid Hypertension On metoprolol succinate Hyperlipidemia on statin History of occipital infarction Blindness On aspirin and statin History of [place] cell carcinoma left ear S/p surgery Chronic anemia hemoglobin stable at 11.6 DVT prophylaxis: IV heparin -> lovenox subq Disposition telemetry Full code Admission and Anticipated Discharge Date Admission Date: May 08, 2023 Subjective Pt seen in follow up of chest pain, elev. trop. (NSTEMI), CHF exacerb. (acute syst. HF) Currently laying in bed, in no acute distress Denies chest pain or shortness of breath. Denies any palpitations. Says he feels comfortable. He is on suppl. O2 Cardiology following closely and discussed with - dc iv heparin and start ppx lovenox Review of Systems Review of Systems: All systems reviewed & are unremarkable except as noted in Subjective Physical Exam Physical Exam: General- obese M in NAD. patient is blind. on suppl.O2 Head- atraumatic Eyes- blind ENT- oropharynx clear Neck- supple, no JVD. Lungs- clear to auscultation, diminished at bases. no wheezing or crackles. Heart- regular rhythm; no murmur, no gallop. Abdomen- normal bowel sounds, soft, nontender, no distension. Extremities- b/l pretibial edema present. No erythema seen. Neuro- alert, oriented ; no facial palsy; no dysarthria; moves extremities. Skin- warm & dry Results & Data Results & Data Vital Signs (Past 12 Hours) Vital Signs Temp Pulse Pulse Resp BP Pulse Ox O2 Del Method 05/10/23 07:16 36.8 C 75 19 127/67 96 BiPAP 05/10/23 03:19 36.4 C L 71 18 136/70 99 Nasal Cannula 05/09/23 23:00 83 05/09/23 22:25 81 19 94 05/09/23 22:07 36.9 C 83 18 150/77 H 99 Nasal Cannula O2 Flow Rate 05/10/23 07:16 05/10/23 03:19 2 05/09/23 23:00 05/09/23 22:25 2 05/09/23 22:07 2 Laboratory Results 05/10/23 05/10/23 05/09/23 Range/Units 07:58 05:44 19:55 WBC 8.48 (4.8-10.8) K/ul RBC 3.75 L (4.70-6.10) M/uL Hgb 10.9 L (14.0-18.0) g/dl Hct 33.7 L (42.0-52.0) % MCV 89.9 (80.0-100.0) fL MCH 29.1 (25.0-34.0) pg MCHC 32.3 (32.0-36.0) g/dL RDW Std Deviation 46.7 H (36.4-46.3) fL RDW Coeff of Marva 14.4 (11.5-14.5) % Plt Count 263 (130-400) K/uL MPV 10.4 (9.4-12.4) fL Heparin Anti-Xa, Unfract 0.32 (0.3-0.7) IU/ml Sodium 135 L (136-145) mmol/L Potassium 4.5 (3.5-5.1) mmol/L Chloride 99 (98-107) mmol/L Carbon Dioxide 30 (21-32) mmol/L Anion Gap 6 (3-11) BUN 24 H (6-23) mg/dl Creatinine 1.55 H (0.6-1.4) mg/dl Est Cr Clr Drug Dosing 54.3 ml/min Est GFR ( Amer) 50.0 ml/min Est GFR (Non-Af Amer) 43.2 ml/min BUN/Creatinine Ratio 15.5 (10-20) Glucose 148 H (70-99(Fasting)) mg/dl POC Glucose 150 H 139 H (70-99) mg/dl Lactate (0.4-2.0) mmol/L Calcium 9.1 (8.6-10.3) mg/dl Phosphorus 3.6 (2.5-4.9) mg/dl Magnesium 1.9 (1.7-2.4) mg/dl Triglycerides 276 H (0-150) mg/dl Cholesterol 134 (0-200) mg/dl LDL Cholesterol, Calc 49 mg/dl VLDL Cholesterol, Calc 55 H (0-30) mg/dl HDL Cholesterol 30 mg/dl Cholesterol/HDL Ratio 4.5 (0-5) 05/09/23 05/09/23 05/09/23 Range/Units 16:51 11:58 08:04 WBC (4.8-10.8) K/ul RBC (4.70-6.10) M/uL Hgb (14.0-18.0) g/dl Hct (42.0-52.0) % MCV (80.0-100.0) fL MCH (25.0-34.0) pg MCHC (32.0-36.0) g/dL RDW Std Deviation (36.4-46.3) fL RDW Coeff of Marva (11.5-14.5) % Plt Count (130-400) K/uL MPV (9.4-12.4) fL Heparin Anti-Xa, Unfract (0.3-0.7) IU/ml Sodium (136-145) mmol/L Potassium (3.5-5.1) mmol/L Chloride (98-107) mmol/L Carbon Dioxide (21-32) mmol/L Anion Gap (3-11) BUN (6-23) mg/dl Creatinine (0.6-1.4) mg/dl Est Cr Clr Drug Dosing ml/min Est GFR ( Amer) ml/min Est GFR (Non-Af Amer) ml/min BUN/Creatinine Ratio (10-20) Glucose (70-99(Fasting)) mg/dl POC Glucose 158 H 168 H (70-99) mg/dl Lactate 1.4 (0.4-2.0) mmol/L Calcium (8.6-10.3) mg/dl Phosphorus (2.5-4.9) mg/dl Magnesium (1.7-2.4) mg/dl Triglycerides (0-150) mg/dl Cholesterol (0-200) mg/dl LDL Cholesterol, Calc mg/dl VLDL Cholesterol, Calc (0-30) mg/dl HDL Cholesterol mg/dl Cholesterol/HDL Ratio (0-5) Medications Administered Current Inpatient Medications Acetaminophen (Acetaminophen 325 Mg Tab) 650 mg PO Q4H PRN PRN Reason: Pain or Fever Stop: 06/07/23 10:14 Last Admin: 05/09/23 05:30 Dose: 650 mg Albuterol (Albuterol 0.083% Nebu Soln 3 Ml Vial) 2.5 mg INH Q4H PRN; Protocol PRN Reason: Shortness Of Breath Or Wheezing Stop: 06/07/23 10:14 Ascorbic Acid (Ascorbic Acid 500 Mg Tab) 500 mg PO DAILY [facility] Stop: 06/07/23 10:29 Last Admin: 05/10/23 07:50 Dose: 500 mg Aspirin (Aspirin 81 Mg Ectab) 81 mg PO QAM [facility] Stop: 06/09/23 08:59 Last Admin: 05/10/23 07:51 Dose: 81 mg Atorvastatin Calcium (Atorvastatin 40 Mg Tab) 40 mg PO HS [facility] Stop: 06/07/23 20:59 Last Admin: 05/09/23 20:06 Dose: 40 mg Cetirizine HCl (Cetirizine Hcl 10 Mg Tablet) 10 mg PO DAILY [facility] Stop: 06/07/23 10:29 Last Admin: 05/10/23 07:51 Dose: 10 mg Clopidogrel Bisulfate (Clopidogrel Bisulfate 75 Mg Tab) 75 mg PO QAM [facility] Stop: 06/08/23 10:14 Last Admin: 05/10/23 07:50 Dose: 75 mg Dextrose (Dextrose 50% 50 Ml Syringe) 25 - 50 ml IV UD PRN; Protocol PRN Reason: Hypoglycemia Protocol Stop: 06/07/23 10:14 Docusate Sodium (Docusate Sodium 100 Mg Cap) 100 mg PO BID [facility] Stop: 06/07/23 10:29 Last Admin: 05/10/23 07:55 Dose: 100 mg Escitalopram Oxalate (Escitalopram Oxalate 10 Mg Tab) 10 mg PO QAM [facility] Stop: 06/07/23 10:29 Last Admin: 05/10/23 07:51 Dose: 10 mg Famotidine (Famotidine 20 Mg Tab) 20 mg PO BIDM [facility] Stop: 06/07/23 10:29 Last Admin: 05/10/23 07:50 Dose: 20 mg Ferrous Sulfate (Ferrous Sulfate 325 Mg Tab) 325 mg PO DAILY [facility] Stop: 06/07/23 10:29 Last Admin: 05/09/23 08:51 Dose: 325 mg Finasteride (Finasteride 5 Mg Tab) 5 mg PO QDL [facility] Stop: 06/07/23 11:29 Last Admin: 05/10/23 07:51 Dose: 5 mg Glucagon (Glucagon For Inj 1 Mg Vial) 1 mg SQ UD PRN; Protocol PRN Reason: Hypoglycemia Protocol Stop: 06/07/23 10:14 Glucose (Glucose 10 Tab/Tube) 4 - 8 tab PO UD PRN; Protocol PRN Reason: Hypoglycemia Treatment Stop: 06/07/23 10:14 Glucose (Glucose 40% Gel 15 Gm Tube) 15 - 30 gm PO UD PRN; Protocol PRN Reason: Hypoglycemia Protocol Stop: 06/07/23 10:14 Heparin Sodium/Dextrose (Heparin Sodium/Dextrose) 25,000 units in 500 mls @ 24 mls/hr IV .[id number] [facility]; Protocol Stop: 06/07/23 07:44 Last Titration: 05/10/23 07:23 Dose: 1,200 units/hr, 24 mls/hr Insulin Aspart (Insulin Aspart Per Unit Charge) 0 units SC ACHS [facility] Stop: 06/07/23 11:14 Last Admin: 05/09/23 20:04 Dose: Not Given Insulin Glargine (Lantus Per Unit Charge) 0 units SC HS [facility]; Protocol Stop: 06/07/23 20:59 Last Admin: 05/09/23 20:06 Dose: Not Given Levothyroxine Sodium (Levothyroxine Sodium 50 Mcg Tablet) [facility] Stop: 06/07/23 10:29 Last Admin: 05/10/23 06:10 Dose: 50 mcg Metoprolol Succinate (Metoprolol Succ 25mg Ext Rel Tab) 25 mg PO DAILY [facility] Stop: 06/07/23 10:14 Last Admin: 05/10/23 07:51 Dose: 25 mg Miscellaneous (Carbohydrates For Hypoglycemia ) 15 - 30 gm PO UD PRN PRN Reason: Hypoglycemia Protocol Stop: 06/07/23 10:14 Miscellaneous Information (Pharmacy Glycemic Mgmt Consult) 1 each N/A UD PRN; Protocol PRN Reason: Consult Stop: 06/07/23 10:14 Multivitamins (Multivitamin Tab) 1 tab PO DAILY [facility] Stop: 06/07/23 10:14 Last Admin: 05/10/23 07:51 Dose: 1 tab Nitroglycerin (Nitroglycerin Sl 0.4 Mg/Tab Tab) 0.4 mg SL Q5M PRN PRN Reason: Chest Pain Stop: 06/07/23 10:14 Potassium Chloride (Potassium Chloride 10 Meq Tabcr) 10 meq PO DAILY [facility] Stop: 06/07/23 10:29 Last Admin: 05/10/23 07:55 Dose: 10 meq Tamsulosin HCl (Tamsulosin Hcl 0.4 Mg Cap) 0.4 mg PO DAILY [facility] Stop: 06/07/23 10:29 Last Admin: 05/10/23 07:51 Dose: 0.4 mg
--- NOTE | 2023-05-10 09:46 | Cardiology Progress Note ---
Date of Service May 10, 2023 Assessment & Plan (1) HFrEF (heart failure with reduced ejection fraction): (2) Ischemic cardiomyopathy: (3) NSTEMI (non-ST elevated myocardial infarction): Plan Transthoracic echocardiogram performed 05/08/2023 revealed severe left ventricul ar systolic dysfunction with ejection fraction the range of 20-25%. Compared to March, the apical akinesis noted on the echocardiogram is unchanged, but there has been interval development of severe diffuse hypokinesis with sparing of the lateral wall, and the ejection fraction has declined from 40- 45% to 20- 25%. High-sensitivity troponin peaked at 6,773 and has trended down to 5,552 PG per mL. Lactate 2.5-->2.3-->1.4 mmol/ liter EKG performed this morning 05/09/2023 at 5:27 AM and reviewed independently reveals sinus rhythm at 77 bpm with age-indeterminate septal infarction pattern noted in lead V2. The ST segment depression previously observed in the lateral leads has resolved with normal T waves noted in the lateral precordial and high lateral leads. Patient with large LAD/circumflex territory IN in 1998 with findings of 50% proximal to mid LAD stenosis and 90% distal LAD stenosis at that time, 100% chronic occlusion of the circumflex at that time and 60% RCA lesion. 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 * DC unfractionated heparin , having completed a 48 hour course. Start SQ lovenox for DVT prophylaxis. * Discontinued Ecotrin 325 mg daily in favor of 81 mg daily and clopidogrel 75 mg daily * Continue metoprolol succinate 25 mg daily * Hold off on additional diuretics, ACEI, ARB, or ARNI given slight up trend in creatinine. * LDL 49 mg/dl on 05/10/23, continue atorvastatin 40 mg daily. Admission and Anticipated Discharge Date Admission Date: May 08, 2023 Subjective Mr Barrett is seen in cardiology follow up. Feels well. Denies subjective shortness of breath and is able to lie supine. On oxygen 3 l/m nasal cannula with another trial of Bipap last night. Telemetry reveals SR in the 80s with occasional isolated PVCs. No sustained arrhythmias. Physical Exam Constitutional: WD/WN, vitals as above no acute distress Eyes: PERRL, conjunctivae normal, anicteric sclerae Respiratory: Auscultation: + diminished lung sounds (mildly decreased breath sounds at the bases ); no crackles and no wheezes Cardiovascular: Rate/Rhythm: regular rate and regular rhythm Heart Sounds: + murmur (1/6 SM ) Extremities: + edema (1+ LE edema ) Gastrointestinal (Abdomen): normal bowel sounds, soft, nontender, no hepatosplenomegaly Neurologic: PERRL, EOMI, accommodation nl, no face palsy, no dysarthria Results & Data Vital Signs (Past 12 Hours) Vital Signs Temp Pulse Pulse Resp BP Pulse Ox O2 Del Method 05/10/23 07:50 62 05/10/23 07:16 36.8 C 75 19 127/67 96 BiPAP 05/10/23 03:19 36.4 C L 71 18 136/70 99 Nasal Cannula 05/09/23 23:00 83 05/09/23 22:25 81 19 94 05/09/23 22:07 36.9 C 83 18 150/77 H 99 Nasal Cannula O2 Flow Rate 05/10/23 07:50 05/10/23 07:16 05/10/23 03:19 2 05/09/23 23:00 05/09/23 22:25 2 05/09/23 22:07 2 Laboratory Results Lipids 05/10/23 Range/Units 05:44 Triglycerides 276 H (0-150) mg/dl Cholesterol 134 (0-200) mg/dl HDL Cholesterol 30 mg/dl Cholesterol/HDL Ratio 4.5 (0-5) CBC 05/10/23 Range/Units 05:44 WBC 8.48 (4.8-10.8) K/ul RBC 3.75 L (4.70-6.10) M/uL Hgb 10.9 L (14.0-18.0) g/dl Hct 33.7 L (42.0-52.0) % Plt Count 263 (130-400) K/uL Comprehensive Metabolic Panel 05/10/23 Range/Units 05:44 Sodium 135 L (136-145) mmol/L Potassium 4.5 (3.5-5.1) mmol/L Chloride 99 (98-107) mmol/L Carbon Dioxide 30 (21-32) mmol/L BUN 24 H (6-23) mg/dl Creatinine 1.55 H (0.6-1.4) mg/dl Glucose 148 H (70-99(Fasting)) mg/dl Calcium 9.1 (8.6-10.3) mg/dl Intake and Output 05/09/23 05/10/23 05/10/23 22:59 06:59 14:59 Intake Total 489.6 / 489.6 90.8 / 90.8 Output Total 400 / 1050 Balance 89.6 / -560.4 90.8 / 90.8 Intake: IV 489.6 / 489.6 90.8 / 90.8 Heparin Sodium/Dextrose 25,000 489.6 / 489.6 90.8 / 90.8 units In 500 ml @ 1,200 UNITS/ HR 24 mls/hr IV .[id number] [facility] Rx #:[id number] Output: Urine 400 / 1050 Other: Weight 113.4 kg Weight Measurement Method Built in [facility]
--- NOTE | 2023-05-10 13:49 | Pharmacy Report ---
Pharmacy Glycemic Short Note 2 - Date of Service May 10, 2023 - Glycemic Short BSG Results (Last 24 hours): 05/09/23 05/09/23 05/10/23 16:51 19:55 05:44 Glucose 148 H POC Glucose 158 H 139 H 05/10/23 05/10/23 07:58 11:59 Glucose POC Glucose 150 H 172 H OUTPATIENT ANTIDIABETIC REGIMEN: * Metformin 500 mg PO BID * A1c = 7.4% ASSESSMENT: 05/10 * Patient received 10 units of novolog yesterday. * BSGs have remained below 180 mg/dL, will continue to hold off on basal for now * Continue current novolog parameters 05/08 * Adrien is a T2DM admitted with an episode of shortness of breath and chest pain * BSG of 307 mg/dL in the ED. This improved to 166 mg/dL after only 5 units of short acting insulin. * During past admission (Mar 2023), patient required Lantus 5 units daily and Novolog 2-5 units ACHS. * Will start insulin conservatively given past use, A1c near goal on metformin, and NPO status. PLAN FOR INPATIENT GLYCEMIC CONTROL: * Hold outpatient oral diabetes medications * Basal insulin * Hold * Bolus insulin * NovoLog per scale ACHS or Q6hrs while NPO * Goal Range: Low 110 mg/dL - High 140 mg/dL * Correction Factor: 25 mg/dL/unit * Nutritional / Prandial insulin per carb ratio of 1 unit per 10 grams CHO consumed
[2023-05-11] MEDS: bisacodyL 10 MG SUPP PR STA (00:11)
[2023-05-11 06:21] LABS: Hematocrit (blood only) 34.7 % (42.0-52.0); Mean Corpuscular Hemoglobin 28.9 pg (25.0-34.0); Mean Corpuscular Hgb Conc 31.7 g/dL (32.0-36.0); Mean Corpuscular Volume 91.1 fL (80.0-100.0); Mean Platelet Volume 10.2 fL (9.4-12.4); Platelet Count 246 K/uL (130-400); RDW Coefficient of Variation 14.3 % (11.5-14.5); RDW Standard Deviation 47.2 fL (36.4-46.3); Red Blood Count 3.81 M/uL (4.70-6.10)
[2023-05-11 06:41] LABS: BUN Creatinine Ratio 16.2 (10-20); Calcium 9.2 mg/dl (8.6-10.3); Creatinine Clr Calc Pharmacy 62.4 ml/min; Est GFR (African American) 58.6 ml/min; Est GFR (Non-African American) 50.5 ml/min; Magnesium 1.9 mg/dl (1.7-2.4); Phosphorus 3.5 mg/dl (2.5-4.9); Potassium 4.6 mmol/L (3.5-5.1)
[2023-05-11] MEDS: ENOXAPARIN INJ 40 MG/0.4 ML SYR SQ SCH (07:45)
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
[2023-05-11] MEDS: LOSARTAN POTASSIUM 25 MG TAB PO SCH (10:15)
--- NOTE | 2023-05-11 10:47 | Hospitalist Progress Note ---
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 As per patient had some shortness of breath around 11:30 PM last night but he went to sleep and he woke up around 2:30 AM and was struggling to breathe and somewhat diaphoretic when she called EMS and brought him here. In the ER he had an episode of chest pain but that got resolved now. Non-ST elevated NE An episode of chest pain EKG w/no acute ST changes Initial troponin 117 and repeat troponin 429 -> peaked at 6,700s Currently chest pain-free Started on IV heparin, now stopped Echo obtained -there is akinesis of the apical segments with diffuse hypokinesis noted otherwise, the lateral wall is relatively spared. LV systolic function is severely reduced. LVEF 20 to 25%. There is severe mitral annular calcification. There is no mitral valve stenosis. There is mild mitral regurg. Grade 1 diastolic dysfunction. Compared to the images obtained at the time of the previous study dated April 04, 2023, apical akinesis is noted at that time, with interval development of severe diffuse hypokinesis otherwise and interval decline in EF from 40 - 45% to 20 - 25%. 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 * completed 48-hour course of heparin IV -> transitioned to sq lovenox for dvt ppx * Discontinued Ecotrin 325 mg daily in favor of 81 mg daily and started clopidogrel 75 mg daily * Continue metoprolol succinate 25 mg daily * Continue atorvastatin 40 mg daily, LDL 49 * Start losartan 25 mg daily on 05/11/23. * Holding further diuretic therapy, clinically volume status is improved. Acute Heart failure with reduced ejection fraction Echo done in April 04, 2023 showed EF of 40 to 45% On home on Lasix 30 mg daily Received IV Lasix 40 mg in the ER Chest x-ray mild pulmonary edema Currently patient states shortness of breath improved Closely monitor Monitor I's and O's and daily weights further diuretics per Cardiology Elevated lactic acid Possibly from his severe LV dysfunction and transient hypoxia Leukocytosis -> WBC trended down and normalized Procalcitonin negative. History of recurrent UTI, current UA negative. Blood cultx ngtd Diabetes hyperglycemia Hold metformin Sliding scale Close monitor History of CAD On aspirin, statin, beta-karley, start plavix, as above echo obtained - as above History of PVD s/p stent On aspirin and statin History of PSVT On metoprolol succinate Will monitor BPH On flomax and finasteride Hypothyroidism on Synthyroid Hypertension On metoprolol succinate Hyperlipidemia on statin History of occipital infarction Blindness On aspirin and statin History of [place] cell carcinoma left ear S/p surgery Chronic anemia hemoglobin stable at 11.6 DVT prophylaxis: IV heparin -> lovenox subq Disposition telemetry Seen by PT - recommend rehab - pt prefers home w/ HH -> plan to be seen by PT again tmrw Full code Admission and Anticipated Discharge Date Admission Date: May 08, 2023 Subjective Pt seen in follow up of chest pain, elev. trop. (NSTEMI), CHF exacerb. (acute syst. HF) Currently sitting up in chair, in no acute distress Denies chest pain or shortness of breath. Denies any palpitations. Says he feels comfortable. He is on suppl. O2 Cardiology following closely and discussed with. Pt seen by PT - recommend rehab - pt prefers home w/ HH -> plan to be seen by PT again tmrw Review of Systems Review of Systems: All systems reviewed & are unremarkable except as noted in Subjective Physical Exam Physical Exam: General- obese M in NAD. patient is blind. on suppl.O2 Head- atraumatic Eyes- blind ENT- oropharynx clear Neck- supple, no JVD. Lungs- clear to auscultation, diminished at bases. no wheezing or crackles. Heart- regular rhythm; no murmur, no gallop. Abdomen- normal bowel sounds, soft, nontender, no distension. Extremities- b/l pretibial edema present. No erythema seen. Neuro- alert, oriented ; no facial palsy; no dysarthria; moves extremities. Skin- warm & dry Results & Data Results & Data Vital Signs (Past 12 Hours) Vital Signs Temp Pulse Pulse Resp BP Pulse Ox O2 Del Method 05/11/23 08:00 83 05/11/23 08:00 Nasal Cannula 05/11/23 07:24 36.7 C 86 16 135/71 98 Nasal Cannula 05/11/23 03:21 36.7 C 84 18 142/69 H 98 Nasal Cannula 05/10/23 23:00 82 O2 Flow Rate 05/11/23 08:00 05/11/23 08:00 2 05/11/23 07:24 2 05/11/23 03:21 2 05/10/23 23:00 Laboratory Results 05/11/23 05/11/23 05/10/23 Range/Units 07:49 05:34 20:16 WBC 7.60 (4.8-10.8) K/ul RBC 3.81 L (4.70-6.10) M/uL Hgb 11.0 L (14.0-18.0) g/dl Hct 34.7 L (42.0-52.0) % MCV 91.1 (80.0-100.0) fL MCH 28.9 (25.0-34.0) pg MCHC 31.7 L (32.0-36.0) g/dL RDW Std Deviation 47.2 H (36.4-46.3) fL RDW Coeff of Marva 14.3 (11.5-14.5) % Plt Count 246 (130-400) K/uL MPV 10.2 (9.4-12.4) fL Sodium 135 L (136-145) mmol/L Potassium 4.6 (3.5-5.1) mmol/L Chloride 99 (98-107) mmol/L Carbon Dioxide 30 (21-32) mmol/L Anion Gap 6 (3-11) BUN 22 (6-23) mg/dl Creatinine 1.36 (0.6-1.4) mg/dl Est Cr Clr Drug Dosing 62.4 ml/min Est GFR ( Amer) 58.6 ml/min Est GFR (Non-Af Amer) 50.5 ml/min BUN/Creatinine Ratio 16.2 (10-20) Glucose 122 H (70-99(Fasting)) mg/dl POC Glucose 134 H 156 H (70-99) mg/dl Calcium 9.2 (8.6-10.3) mg/dl Phosphorus 3.5 (2.5-4.9) mg/dl Magnesium 1.9 (1.7-2.4) mg/dl 05/10/23 05/10/23 Range/Units 16:25 11:59 WBC (4.8-10.8) K/ul RBC (4.70-6.10) M/uL Hgb (14.0-18.0) g/dl Hct (42.0-52.0) % MCV (80.0-100.0) fL MCH (25.0-34.0) pg MCHC (32.0-36.0) g/dL RDW Std Deviation (36.4-46.3) fL RDW Coeff of Marva (11.5-14.5) % Plt Count (130-400) K/uL MPV (9.4-12.4) fL Sodium (136-145) mmol/L Potassium (3.5-5.1) mmol/L Chloride (98-107) mmol/L Carbon Dioxide (21-32) mmol/L Anion Gap (3-11) BUN (6-23) mg/dl Creatinine (0.6-1.4) mg/dl Est Cr Clr Drug Dosing ml/min Est GFR ( Amer) ml/min Est GFR (Non-Af Amer) ml/min BUN/Creatinine Ratio (10-20) Glucose (70-99(Fasting)) mg/dl POC Glucose 135 H 172 H (70-99) mg/dl Calcium (8.6-10.3) mg/dl Phosphorus (2.5-4.9) mg/dl Magnesium (1.7-2.4) mg/dl Medications Administered Current Inpatient Medications Acetaminophen (Acetaminophen 325 Mg Tab) 650 mg PO Q4H PRN PRN Reason: Pain or Fever Stop: 06/07/23 10:14 Last Admin: 05/09/23 05:30 Dose: 650 mg Albuterol (Albuterol 0.083% Nebu Soln 3 Ml Vial) 2.5 mg INH Q4H PRN; Protocol PRN Reason: Shortness Of Breath Or Wheezing Stop: 06/07/23 10:14 Ascorbic Acid (Ascorbic Acid 500 Mg Tab) 500 mg PO DAILY [facility] Stop: 06/07/23 10:29 Last Admin: 05/11/23 07:45 Dose: 500 mg Aspirin (Aspirin 81 Mg Ectab) [facility] [place] Stop: 06/09/23 08:59 Last Admin: 05/11/23 07:45 Dose: 81 mg Atorvastatin Calcium (Atorvastatin 40 Mg Tab) 40 mg PO HS [facility] Stop: 06/07/23 20:59 Last Admin: 05/10/23 20:38 Dose: 40 mg Cetirizine HCl (Cetirizine Hcl 10 Mg Tablet) 10 mg PO DAILY [facility] Stop: 06/07/23 10:29 Last Admin: 05/11/23 07:44 Dose: 10 mg Clopidogrel Bisulfate (Clopidogrel Bisulfate 75 Mg Tab) [facility] [place] Stop: 06/08/23 10:14 Last Admin: 05/11/23 07:45 Dose: 75 mg Dextrose (Dextrose 50% 50 Ml Syringe) 25 - 50 ml IV UD PRN; Protocol PRN Reason: Hypoglycemia Protocol Stop: 06/07/23 10:14 Docusate Sodium (Docusate Sodium 100 Mg Cap) 100 mg PO BID [facility] Stop: 06/07/23 10:29 Last Admin: 05/11/23 07:45 Dose: 100 mg Enoxaparin Sodium (Enoxaparin Inj 40 Mg/0.4 Ml Syr) 40 [facility] [place] Stop: 06/10/23 08:59 Last Admin: 05/11/23 07:45 Dose: 40 mg Escitalopram Oxalate (Escitalopram Oxalate 10 Mg Tab) [facility] [place] Stop: 06/07/23 10:29 Last Admin: 05/11/23 07:45 Dose: 10 mg Famotidine (Famotidine 20 Mg Tab) 20 mg PO BIDM [facility] Stop: 06/07/23 10:29 Last Admin: 05/11/23 07:45 Dose: 20 mg Ferrous Sulfate (Ferrous Sulfate 325 Mg Tab) 325 mg PO DAILY [facility] Stop: 06/07/23 10:29 Last Admin: 05/11/23 08:46 Dose: 325 mg Finasteride (Finasteride 5 Mg Tab) 5 mg PO QDL [facility] Stop: 06/07/23 11:29 Last Admin: 05/11/23 07:45 Dose: 5 mg Glucagon (Glucagon For Inj 1 Mg Vial) 1 mg SQ UD PRN; Protocol PRN Reason: Hypoglycemia Protocol Stop: 06/07/23 10:14 Glucose (Glucose 10 Tab/Tube) 4 - 8 tab PO UD PRN; Protocol PRN Reason: Hypoglycemia Treatment Stop: 06/07/23 10:14 Glucose (Glucose 40% Gel 15 Gm Tube) 15 - 30 gm PO UD PRN; Protocol PRN Reason: Hypoglycemia Protocol Stop: 06/07/23 10:14 Insulin Aspart (Insulin Aspart Per Unit Charge) 0 units SC ACHS [facility] Stop: 06/07/23 11:14 Last Admin: 05/11/23 08:46 Dose: 6 units Levothyroxine Sodium (Levothyroxine Sodium 50 Mcg Tablet) 50 mcg PO DAILYBB [facility] Stop: 06/07/23 10:29 Last Admin: 05/11/23 06:45 Dose: 50 mcg Losartan Potassium (Losartan Potassium 25 Mg Tab) 25 mg PO QAM [facility] Stop: 06/10/23 09:29 Last Admin: 05/11/23 10:15 Dose: 25 mg Metoprolol Succinate (Metoprolol Succ 25mg Ext Rel Tab) 25 mg PO DAILY [facility] Stop: 06/07/23 10:14 Last Admin: 05/11/23 07:45 Dose: 25 mg Miscellaneous (Carbohydrates For Hypoglycemia ) 15 - 30 gm PO UD PRN PRN Reason: Hypoglycemia Protocol Stop: 06/07/23 10:14 Miscellaneous Information (Pharmacy Glycemic Mgmt Consult) 1 each N/A UD PRN; Protocol PRN Reason: Consult Stop: 06/07/23 10:14 Multivitamins (Multivitamin Tab) 1 tab PO DAILY [facility] Stop: 06/07/23 10:14 Last Admin: 05/11/23 07:45 Dose: 1 tab Nitroglycerin (Nitroglycerin Sl 0.4 Mg/Tab Tab) 0.4 mg SL Q5M PRN PRN Reason: Chest Pain Stop: 06/07/23 10:14 Potassium Chloride (Potassium Chloride 10 Meq Tabcr) 10 meq PO DAILY [facility] Stop: 06/07/23 10:29 Last Admin: 05/11/23 07:48 Dose: 10 meq Tamsulosin HCl (Tamsulosin Hcl 0.4 Mg Cap) 0.4 mg PO DAILY [facility] Stop: 06/07/23 10:29 Last Admin: 05/11/23 07:45 Dose: 0.4 mg
[2023-05-12 06:35] LABS: Hematocrit (blood only) 32.5 % (42.0-52.0); Hemoglobin 10.8 g/dl (14.0-18.0); Mean Corpuscular Hemoglobin 29.8 pg (25.0-34.0); Mean Corpuscular Hgb Conc 33.2 g/dL (32.0-36.0); Mean Corpuscular Volume 89.5 fL (80.0-100.0); Mean Platelet Volume 10.4 fL (9.4-12.4); Platelet Count 235 K/uL (130-400); RDW Coefficient of Variation 14.1 % (11.5-14.5); RDW Standard Deviation 46.4 fL (36.4-46.3); Red Blood Count 3.63 M/uL (4.70-6.10); White Blood Count 7.06 K/ul (4.8-10.8)
[2023-05-12 06:43] LABS: Calcium 9.2 mg/dl (8.6-10.3); Creatinine Clr Calc Pharmacy 54.9 ml/min; Est GFR (African American) 50.8 ml/min; Est GFR (Non-African American) 43.8 ml/min; Phosphorus 3.7 mg/dl (2.5-4.9); Potassium 4.8 mmol/L (3.5-5.1)
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
--- NOTE | 2023-05-12 16:30 | Hospitalist Progress Note ---
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 He is being managed for the following: Non-ST elevated [place] An episode of chest pain prior to arrival. Resolved by presentation at the ED. EKG w/no acute ST changes Initial troponin 117 and repeat troponin 429 -> peaked at 6,700s Currently chest pain-free Status post 48-hour heparin drip. Echo with a kinesis of apical segments with diffuse hypokinesis, lateral wall is relatively spared. LV systolic function is severely reduced, LVEF 20 to 25%. Grade 1 diastolic dysfunction. Comparison echo from past with EF of 40 to 45% Cardiology evaluated, continue with aspirin 81 Mg daily and Plavix 75 Mg daily, continue with metoprolol 25 Mg daily, started losartan 25 Mg daily, continue statin 40 Mg daily, hold further diuretic therapy, stable from cardiac perspective for discharge. Follow-up with [facility] clinic as outpatient. Clinical volume status has improved, his shortness of breath has improved. Low- sodium diet. Acute heart failure with reduced ejection fraction: Echo from March 2023 with EF of 40 to 45%, on home Lasix 30 mg daily, echo this admission with EF of 20 to 25%. CXR with mild pulmonary edema. Status post diuresis per cardiology, currently diuretic on hold. Monitor I's and O's. Appreciate cardiology recommendation. Patient to follow-up with cardiology upon discharge. Elevated blood lactic acid level: Possibly from severe LV dysfunction and transient hypoxia, leukocytosis trended down and normalized. Procalcitonin negative. UA negative. Blood culture no growth so far. Other chronic medical conditions: Continue with/resume home meds as and when able T2DM: Sliding scale insulin while in hospital CAD: Continue aspirin, statin, beta-karley, Plavix started. PVD status post stent: Continue with aspirin and statin PSVT: Continue metoprolol succinate BPH: Continue home Flomax and finasteride Hypothyroidism: Continue Synthroid Hypertension: Continue metoprolol succinate Hyperlipidemia: Continue statin Occipital infarction, blindness: Continue aspirin and statin [place] cell cancer left ear: Status post surgery, postauricular lymphadenopathy noted, recommend biopsy upon discharge. Coordinate with PCP office to set up the test. Chronic anemia: Hemoglobin stable at 11. DVT prophylaxis: On Lovenox subcu Disposition: PT/OT, CM to assist with DC plan. PT recommends rehab. Full code Admission and Anticipated Discharge Date Admission Date: May 08, 2023 Subjective Patient was seen and examined at bedside. Patient was sitting up in chair, patient's at bedside, patient NAD and resting comfortably. Patient reports significant improvement in his shortness of breath, denies cough, reports eating okay and moving bowels okay. Patient denies any chest pain or palpitation. Patient's updated on plan of care. Physical Exam Physical Exam: General- obese M in NAD. patient is blind. on RA Head- atraumatic Eyes- blind ENT- oropharynx clear Neck- supple, no JVD. Lungs- clear to auscultation, diminished at bases. no wheezing or crackles. Heart- regular rhythm; no murmur, no gallop. Abdomen- normal bowel sounds, soft, nontender, no distension. Extremities- b/l pretibial edema 1+ present. No erythema seen. Neuro- alert, oriented ; no facial palsy; no dysarthria; moves extremities. Skin- warm & dry Results & Data Results & Data Vital Signs (Past 12 Hours) Vital Signs Temp Pulse Pulse Resp BP Pulse Ox O2 Del Method 05/12/23 15:44 36.4 C L 86 18 115/62 95 Room Air 05/12/23 15:31 81 05/12/23 11:20 36.4 C L 76 19 98/61 L 98 Nasal Cannula 05/12/23 08:00 81 05/12/23 07:22 36.7 C 76 18 130/67 99 Nasal Cannula O2 Flow Rate 05/12/23 15:44 05/12/23 15:31 05/12/23 11:20 1 05/12/23 08:00 05/12/23 07:22 2
[2023-05-13 06:17] LABS: Hematocrit (blood only) 33.8 % (42.0-52.0); Hemoglobin 10.8 g/dl (14.0-18.0); Mean Corpuscular Hemoglobin 29.4 pg (25.0-34.0); Mean Corpuscular Volume 92.1 fL (80.0-100.0); Mean Platelet Volume 10.2 fL (9.4-12.4); Platelet Count 237 K/uL (130-400); RDW Coefficient of Variation 14.2 % (11.5-14.5); RDW Standard Deviation 47.7 fL (36.4-46.3); Red Blood Count 3.67 M/uL (4.70-6.10); White Blood Count 7.35 K/ul (4.8-10.8)
[2023-05-13 06:40] LABS: BUN Creatinine Ratio 18.9 (10-20); Creatinine Clr Calc Pharmacy 56.7 ml/min; Est GFR (African American) 52.9 ml/min; Est GFR (Non-African American) 45.6 ml/min; Magnesium 2.1 mg/dl (1.7-2.4); Phosphorus 3.9 mg/dl (2.5-4.9); Potassium 4.8 mmol/L (3.5-5.1)
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
--- NOTE | 2023-05-13 11:40 | Hospitalist Progress Note ---
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 He is being managed for the following: Non-ST elevated [place] An episode of chest pain prior to arrival. Resolved by presentation at the ED. EKG w/no acute ST changes Initial troponin 117 and repeat troponin 429 -> peaked at 6,700s Currently chest pain-free Status post 48-hour heparin drip. Echo with a kinesis of apical segments with diffuse hypokinesis, lateral wall is relatively spared. LV systolic function is severely reduced, LVEF 20 to 25%. Grade 1 diastolic dysfunction. Comparison echo from past with EF of 40 to 45% Cardiology evaluated, continue with aspirin 81 Mg daily and Plavix 75 Mg daily, continue with metoprolol 25 Mg daily, started losartan 25 Mg daily, continue statin 40 Mg daily, stable from cardiac perspective for discharge. Follow-up with [facility] clinic as outpatient. Clinical volume status has improved, his shortness of breath has improved. Low- sodium diet. d/w cardio 05/13, resuming home dose of lasix. Acute heart failure with reduced ejection fraction: Echo from March 2023 with EF of 40 to 45%, on home Lasix 30 mg daily, echo this admission with EF of 20 to 25%. CXR with mild pulmonary edema. Status post diuresis per cardiology, c/w home dose of lasix. Monitor I's and O's. Appreciate cardiology recommendation. Patient to follow-up with [facility] upon discharge. Elevated blood lactic acid level: Possibly from severe LV dysfunction and transient hypoxia, leukocytosis trended down and normalized. Procalcitonin negative. UA negative. Blood culture no growth so far. Other chronic medical conditions: Continue with/resume home meds as and when able T2DM: Sliding scale insulin while in hospital CAD: Continue aspirin, statin, beta-karley, Plavix started. 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 Coordinate with PCP office to set up the test. Chronic anemia: Hemoglobin stable at 11. DVT prophylaxis: On Lovenox subcu Disposition: PT/OT, CM to assist with DC plan. PT recommends rehab. awaiting placement. Full code Admission and Anticipated Discharge Date Admission Date: May 08, 2023 Subjective Patient was seen and examined at bedside. Patient was lying in bed, NAD and resting comfortably. Patient reports no shortness of breath, denies cough, reports eating okay and moving bowels okay. Patient denies any chest pain or palpitation. Physical Exam Physical Exam: General- obese M in NAD. patient is blind. on RA Head- atraumatic Eyes- blind ENT- oropharynx clear Neck- supple, no JVD. Lungs- clear to auscultation, diminished at bases. no wheezing or crackles. Heart- regular rhythm; no murmur, no gallop. Abdomen- normal bowel sounds, soft, nontender, no distension. Extremities- b/l pretibial edema trace present. No erythema seen. Neuro- alert, oriented ; no facial palsy; no dysarthria; moves extremities. Skin- warm & dry Results & Data Results & Data Vital Signs (Past 12 Hours) Vital Signs Temp Pulse Pulse Resp BP Pulse Ox O2 Del Method 05/13/23 08:00 85 05/13/23 08:00 Room Air 05/13/23 07:14 36.6 C 80 17 128/73 100 Nasal Cannula 05/13/23 02:40 36.6 C 67 20 108/68 90 Nasal Cannula 05/13/23 00:00 98 H 05/12/23 23:46 36.9 C 88 18 132/72 98 Nasal Cannula O2 Flow Rate 05/13/23 08:00 05/13/23 08:00 05/13/23 07:14 2 05/13/23 02:40 2 05/13/23 00:00 05/12/23 23:46 2
[2023-05-13] MEDS: FUROSEMIDE 20 MG TAB PO SCH (13:12)
--- NOTE | 2023-05-13 13:38 | Pharmacy Report ---
Pharmacy Glycemic Short Note 2 - Date of Service May 13, 2023 - Glycemic Short BSG Results (Last 24 hours): 05/12/23 05/12/23 05/13/23 16:50 21:14 05:42 Glucose 149 H POC Glucose 176 H 195 H 05/13/23 05/13/23 07:57 12:15 Glucose POC Glucose 139 H 189 H OUTPATIENT ANTIDIABETIC REGIMEN: * Metformin 500 mg PO BID * A1c = 7.4% ASSESSMENT: 05/13 * Patient received total of 22 units of insulin yesterday, all correctional * Fasting BSG reasonable 139 mg/dL - will hold basal. Will consider resuming home metformin this evening. Will loosen novolog with start of first dose. 05/10 * Patient received 10 units of novolog yesterday. * BSGs have remained below 180 mg/dL, will continue to hold off on basal for now * Continue current novolog parameters 05/08 * Adrien is a T2DM admitted with an episode of shortness of breath and chest pain * BSG of 307 mg/dL in the ED. This improved to 166 mg/dL after only 5 units of short acting insulin. * During past admission (Mar 2023), patient required Lantus 5 units daily and Novolog 2-5 units ACHS. * Will start insulin conservatively given past use, A1c near goal on metformin, and NPO status. PLAN FOR INPATIENT GLYCEMIC CONTROL: * Resume home metformin - 500 mg bidm * Bolus insulin * NovoLog per scale ACHS or Q6hrs while NPO * Goal Range: Low 110 mg/dL - High 140 mg/dL * Correction Factor: 25 mg/dL/unit * Nutritional / Prandial insulin per carb ratio of 1 unit per 12 grams CHO consumed
[2023-05-13] MEDS ORDERED: metFORMIN HCL 500 MG TAB PO SCH (17:00)
[2023-05-13] MEDS: metFORMIN HCL 500 MG TAB PO SCH (17:15)
[2023-05-14] MEDS: metFORMIN HCL 500 MG TAB PO SCH (09:04)
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
[2023-05-14 09:38] LABS: Basophils # (auto) 0.05 K/uL (0.00-0.20); Basophils % (auto) 0.6 %; Eosinophils # (auto) 0.21 K/uL (0.00-0.50); Eosinophils % (auto) 2.6 %; Hemoglobin 11.1 g/dl (14.0-18.0); Immature Granulocytes # (auto) 0.03 K/uL (0.01-0.20); Immature Granulocytes % (auto) 0.4 %; Lymphocytes # (auto) 2.33 K/uL (1.20-3.40); Lymphocytes % (auto) 28.7 %; Mean Corpuscular Hemoglobin 29.1 pg (25.0-34.0); Mean Corpuscular Hgb Conc 32.6 g/dL (32.0-36.0); Mean Corpuscular Volume 89.2 fL (80.0-100.0); Monocytes # (auto) 0.48 K/uL (0.11-0.59); Monocytes % (auto) 5.9 %; Neutrophils # (auto) 5.03 K/uL (1.40-6.50); Neutrophils % (auto) 61.8 %; Platelet Count 252 K/uL (130-400); RDW Coefficient of Variation 14.3 % (11.5-14.5); RDW Standard Deviation 46.1 fL (36.4-46.3); Red Blood Count 3.81 M/uL (4.70-6.10); White Blood Count 8.13 K/ul (4.8-10.8)
[2023-05-14 10:02] LABS: Troponin I High Sensitivity 296.2 pg/ml (0-20)
--- NOTE | 2023-05-14 10:02 | XRay Report ---
XR chest 1V portable HISTORY: Shortness of breath. Congestive heart failure. COMPARISON: Chest 05/08/2023. FINDINGS: No pneumothorax. The heart remains enlarged. Thoracolumbar spinal fusion rods again noted. There is mild central pulmonary vascular congestion without overt edema. This is improved in the inte rval. Trace bilateral pleural effusions have also slightly improved. No new focal lung consolidations to suggest pneumonia. Left AC joint separation, unchanged. IMPRESSION: Interval improvement in the mild congestive change and trace bilateral pleural effusions. ACT 112: Negative or not required by law. Electronically signed by: Segundo Brown M.D. 05/14/2023 10:00 AM
--- NOTE | 2023-05-14 11:28 | Communication Note ---
Date of Service: May 14, 2023 Patient seen in cardiology follow-up. No acute distress. Has some nasal congestion at present. His significant other Suzanne, and his sister accompany him at the bedside. Exam: Chronic blindness, mild right upper extremity weakness, but the patient is able to raise his arm, and to extend his fingers, the arm does look mildly atrophied compared to her this left arm, but is functional. Pulmonary: Clear to auscultation bilaterally Cardiovascular regular rhythm, no murmurs, 1+ bilateral lower extremity edema Cardiac Enzymes 05/14/23 Range/Units 09:16 Troponin I High Sens 296.2 H* (0-20) pg/ml CBC 05/14/23 Range/Units 09:16 WBC 8.13 (4.8-10.8) K/ul RBC 3.81 L (4.70-6.10) M/uL Hgb 11.1 L (14.0-18.0) g/dl Hct 34.0 L (42.0-52.0) % Plt Count 252 (130-400) K/uL Neut # (Auto) 5.03 (1.40-6.50) K/uL Lymph # (Auto) 2.33 (1.20-3.40) K/uL [place] # (Auto) 0.48 (0.11-0.59) K/uL Eos # (Auto) 0.21 (0.00-0.50) K/uL Baso # (Auto) 0.05 (0.00-0.20) K/uL EKG performed this morning reveals sinus rhythm with noted [address] se gment depression in the lateral leads. This is similar to his EKG noted on presentation to the emergency department. The tracing performed in follow-up on 05/09/2023 and revealed resolution of the ST segment changes but they are back again and suggestive of ischemia. A repeat high-sensitivity troponin was obtained with level of 296 PG per mL, this has actually trended down compared to the peak troponin of 6773 noted on 05/08/2023. A repeat chest x-ray was performed this morning which revealed interval improvement in the mild interstitial edema and bilateral pleural effusions that were noted on 05/08/2023. Impression: Patient with recurrent symptoms of unstable angina. Based on his exam and his chest x-ray, I do not think that this is related to worsening volume status. As previously noted, patient is at higher risk for potential complication, and there is also significant chance that the end result of the procedure would be a decision for ongoing medical therapy if there are no targets for revascularization, but I think at this point the benefit of the information provided by a diagnostic cardiac catheterization outweighs the risks. Patient agreeable as well as his significant other. With the patient's permission , I called his daughter, Grace Granda, who lives in [place], phone #[phone] and provided updates. Plan: Continue aspirin, 81 mg daily, clopidogrel 75 mg daily which was started on 05/09/2023, metoprolol, losartan, atorvastatin. Plan for invasive coronary angiography. Case reviewed with Dr. Padron of interventional cardiology. Asha Miranda DO
[2023-05-14 11:30] LABS: Calcium 9.1 mg/dl (8.6-10.3); Creatinine Clr Calc Pharmacy 57.2 ml/min; Est GFR (African American) 53.3 ml/min
--- NOTE | 2023-05-14 15:33 | Hospitalist Progress Note ---
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 He is being managed for the following: Non-ST elevated [place] An episode of chest pain prior to arrival. Resolved by presentation at the ED. EKG w/no acute ST changes Initial troponin 117 and repeat troponin 429 -> peaked at 6,700s continues to have recurrent symptoms of unstable angina Status post 48-hour heparin drip. Echo with a kinesis of apical segments with diffuse hypokinesis, lateral wall is relatively spared. LV systolic function is severely reduced, LVEF 20 to 25%. Grade 1 diastolic dysfunction. Comparison echo from past with EF of 40 to 45% Cardiology evaluated, continue with aspirin 81 Mg daily and Plavix 75 Mg daily, continue with metoprolol 25 Mg daily, started losartan 25 Mg daily, continue statin 40 Mg daily, stable from cardiac perspective for discharge. Follow-up with [place] cardiology clinic as outpatient. Clinical volume status has improved, hLow-sodium diet. d/w cardio 05/14, plan for cardiac cath on Wednesday. Acute heart failure with reduced ejection fraction: Echo from March 2023 with EF of 40 to 45%, on home Lasix 30 mg daily, echo this admission with EF of 20 to 25%. CXR with mild pulmonary edema. Status post diuresis per cardiology, c/w home dose of lasix when able. Monitor I's and O's. Appreciate cardiology recommendation. Patient to follow-up with [facility] cardiology upon discharge. Elevated blood lactic acid level: Possibly from severe LV dysfunction and transient hypoxia, leukocytosis trended down and normalized. Procalcitonin negative. UA negative. Blood culture no growth so far. Other chronic medical conditions: Continue with/resume home meds as and when able T2DM: Sliding scale insulin while in hospital CAD: Continue aspirin, statin, beta-karley, Plavix started. 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 Coordinate with PCP office to set up the test. Chronic anemia: Hemoglobin stable at 11. DVT prophylaxis: On Lovenox subcu Disposition: PT/OT, CM to assist with DC plan. PT recommends rehab. awaiting placement. Full code Admission and Anticipated Discharge Date Admission Date: May 08, 2023 Subjective Patient was seen and examined at bedside. Patient was lying in bed, has episode of sob in AM, on 2L O2 via NC. Patient denies cough, reports eating okay and moving bowels okay. Patient denies any chest pain or palpitation. Physical Exam Physical Exam: General- obese M in NAD. patient is blind. on 2L O2 via NC Head- atraumatic Eyes- blind ENT- oropharynx clear Neck- supple, no JVD. Lungs- no crackles. no wheezing . Heart- regular rhythm; no murmur, no gallop. Abdomen- normal bowel sounds, soft, nontender, no distension. Extremities- b/l pretibial edema trace present. No erythema seen. Neuro- alert, oriented ; no facial palsy; no dysarthria; moves extremities. Skin- warm & dry Results & Data Results & Data Vital Signs (Past 12 Hours) Vital Signs Temp Pulse Pulse Resp BP Pulse Ox O2 Del Method 05/14/23 13:20 84 18 110/67 96 Nasal Cannula 05/14/23 12:10 36.7 C 83 18 130/74 99 Nasal Cannula 05/14/23 08:14 85 05/14/23 07:52 36.3 C L 90 20 158/94 H 95 Nasal Cannula 05/14/23 03:34 36.6 C 90 20 144/74 H 90 Room Air O2 Flow Rate 05/14/23 13:20 2 05/14/23 12:10 1.5 05/14/23 08:14 05/14/23 07:52 1.5 05/14/23 03:34
--- NOTE | 2023-05-14 16:34 | Communication Note ---
Date of Service: May 14, 2023 Patient reassessed in room 455 . Significant other , Suzanne, and sister in room. He is comfortable . SOB improved / resolved. Cardiac catheterization delayed due to CKD and having had metformin. Procedure tentatively scheduled for 05/17/23.
--- NOTE | 2023-05-14 16:48 | Electrocardiogram Report ---
Test Reason : Blood Pressure : / mmHG Vent. Rate : 088 BPM Atrial Rate : 088 BPM P-R Int : 156 ms QRS Dur : 090 ms QT Int : 382 ms P-R-T Axes : 041 008 116 degrees QTc Int : 462 ms Normal sinus rhythm Abnormal ECG When compared with ECG of 09-MAY-2023 05:27, Questionable change in QRS duration Confirmed by Robert Garcia ([id number]) on 05/14/2023 4:48:03 PM Referred By: REFERRED SELF Confirmed By:James Garcia
[2023-05-15 04:43] LABS: BUN Creatinine Ratio 19.9 (10-20); Calcium 9.3 mg/dl (8.6-10.3); Creatinine Clr Calc Pharmacy 50.7 ml/min; Est GFR (Non-African American) 39.7 ml/min; Magnesium 1.9 mg/dl (1.7-2.4); Potassium 4.4 mmol/L (3.5-5.1)
[2023-05-15 04:49] LABS: Troponin I High Sensitivity 329.6 pg/ml (0-20)
--- NOTE | 2023-05-15 11:46 | Cardiology Progress Note ---
Date of Service May 15, 2023 Assessment & Plan (1) HFrEF (heart failure with reduced ejection fraction): (2) Ischemic cardiomyopathy: (3) NSTEMI (non-ST elevated myocardial infarction): Plan Patient with complex cardiovascular and coronary disease admitted with acute heart failure, decline in LV systolic function, and NSTEMI. Complex coronary history includes LAD/circumflex territory myocardial infarction in 1998 with noted 90% distal LAD lesion, 100% circumflex occlusion, 60% RCA stenosis at that time. Repeat ECG today. Continue current cardiovascular medications including atorvastatin, metoprolol succinate, aspirin, clopidogrel, and subcutaneous Lovenox for DVT prophylaxis. Furosemide and metformin currently on hold. Hold losartan in a.m. 05/16/2023 pending review of lab studies. Cardiac catheterization scheduled 05/17/2023. I spent a total of 40 minutes on the date of service in preparation, delivery, and documentation of the care provided to this patient, excluding any time spent in the performance of separately billed services. Admission and Anticipated Discharge Date Admission Date: May 08, 2023 Subjective Patient seen examined the bedside. Feeling well over the past 24 hours. No recurrent chest discomfort or shortness of breath. Telemetry reveals sinus rhythm with occasional PVCs. No orthopnea, PND, or edema. Creatinine trending upward slightly today. Metformin on hold in anticipation of cardiac catheterization 05/17/2023. Review of Systems Review of Systems: All systems reviewed & are unremarkable except as noted in Subjective Physical Exam Constitutional: well nourished; no acute distress Respiratory: no respiratory distress, no labored breathing and no retractions Auscultation: no crackles, no rales, no rhonchi and no wheezes Cardiovascular: Rate/Rhythm: regular rate and regular rhythm Heart Sounds: normal S1 and normal S2; no murmur Vessels: radial pulses present; no JVD and no carotid bruit Extremities: no edema Gastrointestinal (Abdomen): Inspection/Auscultation: abdomen normal to inspection; abdomen not distended Percussion/Palpation: abdomen soft; abdomen nontender, no guarding and abdomen not rigid Neurologic: CN's II-XI intact bilaterally and moves all extremities; no focal motor deficits Results & Data Vital Signs (Past 12 Hours) Vital Signs Temp Pulse Pulse Resp BP BP Pulse Ox 05/15/23 08:56 05/15/23 07:32 36.7 C 79 19 122/71 99 05/15/23 07:22 76 05/15/23 03:02 36.7 C 77 18 94/60 L 94 05/15/23 00:00 82 05/14/23 23:35 36.7 C 78 18 109/61 96 O2 Del Method O2 Flow Rate 05/15/23 08:56 Nasal Cannula 2 05/15/23 07:32 Nasal Cannula 2.0 05/15/23 07:22 05/15/23 03:02 Nasal Cannula 2 05/15/23 00:00 05/14/23 23:35 Nasal Cannula 2 Laboratory Results Cardiac Enzymes 05/15/23 Range/Units 03:56 Troponin I High Sens 329.6 H* (0-20) pg/ml Comprehensive Metabolic Panel 05/15/23 Range/Units 03:56 Sodium 135 L (136-145) mmol/L Potassium 4.4 (3.5-5.1) mmol/L Chloride 100 (98-107) mmol/L Carbon Dioxide 27 (21-32) mmol/L BUN 33 H (6-23) mg/dl Creatinine 1.66 H (0.6-1.4) mg/dl Glucose 150 H (70-99(Fasting)) mg/dl Calcium 9.3 (8.6-10.3) mg/dl Intake and Output 05/14/23 05/15/23 05/15/23 22:59 06:59 14:59 Intake Total 120 / 670 Output Total 575 / 1655 Balance -455 / -985 Intake: Oral 120 / 670 Output: Urine 575 / 1655 Other: Other Intake Source sips Weight 110.6 kg Weight Measurement Method Built in [facility]
--- NOTE | 2023-05-15 13:56 | Pharmacy Report ---
Pharmacy Glycemic Short Note 2 - Date of Service May 15, 2023 - Glycemic Short BSG Results (Last 24 hours): 05/14/23 05/14/23 05/15/23 15:59 20:25 03:56 Glucose 150 H POC Glucose 136 H 123 H 05/15/23 05/15/23 07:34 11:47 Glucose POC Glucose 134 H 191 H OUTPATIENT ANTIDIABETIC REGIMEN: * Metformin 500 mg PO BID * A1c = 7.4% ASSESSMENT: 05/15: * Metformin currently on hold for procedure today. Serum creat slightly elevated today at 1.66. Will continue to hold Metformin. * BSGs yesterday were well controlled. Novolog parameters continued the same. Basal insulin not ordered. 05/13 * Patient received total of 22 units of insulin yesterday, all correctional * Fasting BSG reasonable 139 mg/dL - will hold basal. Will consider resuming home metformin this evening. Will loosen novolog with start of first dose. 05/10 * Patient received 10 units of novolog yesterday. * BSGs have remained below 180 mg/dL, will continue to hold off on basal for now * Continue current novolog parameters 05/08 * Adrien is a T2DM admitted with an episode of shortness of breath and chest pain * BSG of 307 mg/dL in the ED. This improved to 166 mg/dL after only 5 units of short acting insulin. * During past admission (Mar 2023), patient required Lantus 5 units daily and Novolog 2-5 units ACHS. * Will start insulin conservatively given past use, A1c near goal on metformin, and NPO status. PLAN FOR INPATIENT GLYCEMIC CONTROL: * Resume home metformin - 500 mg bidm- ON HOLD * Bolus insulin * NovoLog per scale ACHS or Q6hrs while NPO * Goal Range: Low 110 mg/dL - High 140 mg/dL * Correction Factor: 25 mg/dL/unit * Nutritional / Prandial insulin per carb ratio of 1 unit per 12 grams CHO consumed
--- NOTE | 2023-05-15 15:10 | Hospitalist Progress Note ---
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 He is being managed for the following: Non-ST elevated [place] An episode of chest pain prior to arrival. Resolved by presentation at the ED. EKG w/no acute ST changes Initial troponin 117 and repeat troponin 429 -> peaked at 6,700s continues to have recurrent symptoms of unstable angina Status post 48-hour heparin drip. Echo with a kinesis of apical segments with diffuse hypokinesis, lateral wall is relatively spared. LV systolic function is severely reduced, LVEF 20 to 25%. Grade 1 diastolic dysfunction. Comparison echo from past with EF of 40 to 45% Cardiology evaluated, continue with aspirin 81 Mg daily and Plavix 75 Mg daily, continue with metoprolol 25 Mg daily, continue statin 40 Mg daily. Follow-up with [place] cardiology clinic as outpatient. Clinical volume status has improved, Low-sodium diet. d/w cardio 05/14, plan for cardiac cath on Wednesday. Currently metformin/Lasix/losartan on hold. Acute heart failure with reduced ejection fraction: Echo from March 2023 with EF of 40 to 45%, on home Lasix 30 mg daily, echo this admission with EF of 20 to 25%. CXR with mild pulmonary edema. Improvement noted in repeat CXR. Status post diuresis per cardiology, c/w home dose of lasix when able -currently on hold. Monitor I's and O's. Appreciate cardiology recommendation. Patient to follow-up with [place] cardiology upon discharge. Elevated blood lactic acid level: Possibly from severe LV dysfunction and transient hypoxia, leukocytosis trended down and normalized. Procalcitonin negative. UA negative. Blood culture no growth so far. Other chronic medical conditions: Continue with/resume home meds as and when able T2DM: Sliding scale insulin while in hospital CAD: Continue aspirin, statin, beta-karley, Plavix started. PVD status post stent: Continue with aspirin and statin PSVT: Continue metoprolol succinate BPH: Continue home Flomax and finasteride Hypothyroidism: Continue Synthroid Hypertension: Continue metoprolol succinate Hyperlipidemia: Continue statin Occipital infarction, blindness: Continue aspirin and statin [place] cell cancer left ear: Status post surgery, postauricular lymphadenopathy noted, recommend biopsy upon discharge. Coordinate with PCP office to set up the test. Chronic anemia: Hemoglobin stable at 11. DVT prophylaxis: On Lovenox subcu Disposition: PT/OT, CM to assist with DC plan. PT recommends rehab. awaiting placement. Full code N.p.o. midnight of 05/16 and 05/17 for cardiac cath on 05/17. Admission and Anticipated Discharge Date Admission Date: May 08, 2023 Subjective Patient was seen and examined at bedside. Patient was lying in bed, reports improvement in his shortness of breath, denies chest pain. Patient denies cough, reports eating okay and moving bowels okay. Patient denies any chest pain or palpitation. Physical Exam Physical Exam: General- obese M in NAD. patient is blind. on 2L O2 via [place] Head- atraumatic Eyes- blind ENT- oropharynx clear Neck- supple, no JVD. Lungs- no crackles. no wheezing . Heart- regular rhythm; no murmur, no gallop. Abdomen- normal bowel sounds, soft, nontender, no distension. Extremities- b/l pretibial edema trace present. No erythema seen. Neuro- alert, oriented ; no facial palsy; no dysarthria; moves extremities. Skin- warm & dry Results & Data Results & Data Vital Signs (Past 12 Hours) Vital Signs Temp Pulse Pulse Resp BP Pulse Ox O2 Del Method 05/15/23 11:45 36.9 C 73 18 134/81 100 Nasal Cannula 05/15/23 08:56 Nasal Cannula 05/15/23 07:32 36.7 C 79 19 122/71 99 Nasal Cannula 05/15/23 07:22 76 O2 Flow Rate 05/15/23 11:45 2.0 05/15/23 08:56 2 05/15/23 07:32 2.0 05/15/23 07:22
[2023-05-16 05:54] LABS: BUN Creatinine Ratio 23.2 (10-20); Calcium 9.3 mg/dl (8.6-10.3); Creatinine Clr Calc Pharmacy 60.3 ml/min; Est GFR (African American) 57.6 ml/min; Est GFR (Non-African American) 49.7 ml/min; Potassium 4.4 mmol/L (3.5-5.1)
--- NOTE | 2023-05-16 12:38 | Cardiology Progress Note ---
Date of Service May 16, 2023 Assessment & Plan (1) HFrEF (heart failure with reduced ejection fraction): (2) Ischemic cardiomyopathy: (3) NSTEMI (non-ST elevated myocardial infarction): Plan Patient with complex cardiovascular and coronary disease admitted with acute heart failure, decline in LV systolic function, and NSTEMI. Complex coronary history includes LAD/circumflex territory myocardial infarction in 1998 with noted 90% distal LAD lesion, 100% circumflex occlusion, 60% RCA stenosis at that time. Repeat ECG today demonstrating stable findings with incomplete left bundle branch block. Continue current cardiovascular medications including atorvastatin, metoprolol succinate, aspirin, and clopidogrel. Furosemide, losartan, metformin currently on hold. Restart meds postcardiac catheterization. Hold Lovenox in a.m. 05/17/2023 in anticipation of cardiac catheterization. N.p.o. except medications after midnight. Cardiac catheterization scheduled 05/17/2023. I spent a total of 40 minutes on the date of service in preparation, delivery, and documentation of the care provided to this patient, excluding any time spent in the performance of separately billed services. Admission and Anticipated Discharge Date Admission Date: May 08, 2023 Subjective Patient seen and examined at the bedside. Denies chest pain or shortness of breath. Telemetry reveals sinus rhythm with occasional PVCs. Offers no new concerns/complaints. Creatinine trending downward today. Losartan and metformin on hold. Review of Systems Review of Systems: All systems reviewed & are unremarkable except as noted in Subjective Physical Exam Constitutional: well nourished; no acute distress Respiratory: no respiratory distress, no labored breathing and no retractions Auscultation: no crackles, no rales, no rhonchi and no wheezes Cardiovascular: Rate/Rhythm: regular rate and regular rhythm Heart Sounds: normal S1 and normal S2; no murmur Vessels: radial pulses present; no JVD and no carotid bruit Extremities: no edema Gastrointestinal (Abdomen): Inspection/Auscultation: abdomen normal to inspection; abdomen not distended Percussion/Palpation: abdomen soft; abdomen nontender, no guarding and abdomen not rigid Neurologic: CN's II-XI intact bilaterally and moves all extremities; no focal motor deficits Results & Data Vital Signs (Past 12 Hours) Vital Signs Temp Pulse Pulse Resp BP Pulse Ox O2 Del Method 05/16/23 11:36 72 05/16/23 11:32 36.6 C 76 18 135/74 99 Room Air 05/16/23 07:49 36.6 C 74 18 138/78 99 Nasal Cannula 05/16/23 03:44 36.7 C 73 18 129/67 99 Nasal Cannula O2 Flow Rate 05/16/23 11:36 05/16/23 11:32 05/16/23 07:49 2 05/16/23 03:44 3 Laboratory Results Comprehensive Metabolic Panel 05/16/23 Range/Units 05:14 Sodium 135 L (136-145) mmol/L Potassium 4.4 (3.5-5.1) mmol/L Chloride 100 (98-107) mmol/L Carbon Dioxide 28 (21-32) mmol/L BUN 32 H (6-23) mg/dl Creatinine 1.38 (0.6-1.4) mg/dl Glucose 133 H (70-99(Fasting)) mg/dl Calcium 9.3 (8.6-10.3) mg/dl Intake and Output 05/15/23 05/16/23 05/16/23 22:59 06:59 14:59 Intake Total 580 / 1040 200 / 200 Output Total 375 / 1445 Balance 205 / -405 200 / 200 Intake: Oral 580 / 1040 200 / 200 Output: Urine 375 / 1445 Other: Weight 111.5 kg Weight Measurement Method Built in [facility]
--- NOTE | 2023-05-16 13:26 | Electrocardiogram Report ---
Test Reason : Blood Pressure : / mmHG Vent. Rate : 075 BPM Atrial Rate : 075 BPM P-R Int : 160 ms QRS Dur : 118 ms QT Int : 408 ms P-R-T Axes : 042 004 127 degrees QTc Int : 455 ms Normal sinus rhythm Incomplete left bundle block Abnormal ECG When compared with ECG of 14-MAY-2023 09:30, Questionable change in QRS duration Confirmed by Leodan Topete ([id number]) on 05/16/2023 1:25:34 PM Referred By: REFERRED SELF Confirmed By:Leodan Topete
--- NOTE | 2023-05-16 13:45 | Electrocardiogram Report ---
Test Reason : Blood Pressure : / mmHG Vent. Rate : 073 BPM Atrial Rate : 073 BPM P-R Int : 156 ms QRS Dur : 118 ms QT Int : 436 ms P-R-T Axes : 046 039 -25 degrees QTc Int : 480 ms Normal sinus rhythm Non-specific intra-ventricular conduction delay Nonspecific ST and T wave abnormality Prolonged QT Abnormal ECG When compared with ECG of 15-MAY-2023 11:34, (unconfirmed) Nonspecific T wave abnormality, worse in Inferior leads Confirmed by Leodan Topete ([id number]) on 05/16/2023 1:44:51 PM Referred By: REFERRED SELF Confirmed By:Leodan Topete
--- NOTE | 2023-05-16 16:07 | Hospitalist Progress Note ---
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 He is being managed for the following: Non-ST elevated [place] An episode of chest pain prior to arrival. Resolved by presentation at the ED. EKG w/no acute ST changes Initial troponin 117 and repeat troponin 429 -> peaked at 6,700s continues to have recurrent symptoms of unstable angina Status post 48-hour heparin drip. Echo with a kinesis of apical segments with diffuse hypokinesis, lateral wall is relatively spared. LV systolic function is severely reduced, LVEF 20 to 25%. Grade 1 diastolic dysfunction. Comparison echo from past with EF of 40 to 45% Cardiology evaluated, continue with aspirin 81 Mg daily and Plavix 75 Mg daily, continue with metoprolol 25 Mg daily, continue statin 40 Mg daily. Follow-up with [place] cardiology clinic as outpatient. Clinical volume status has improved, Low-sodium diet. d/w cardio 05/14, plan for cardiac cath on Wednesday. Currently metformin/Lasix/losartan on hold. Lovenox on hold after today's dose Acute heart failure with reduced ejection fraction: Echo from March 2023 with EF of 40 to 45%, on home Lasix 30 mg daily, echo this admission with EF of 20 to 25%. CXR with mild pulmonary edema. Improvement noted in repeat CXR. Status post diuresis per cardiology, c/w home dose of lasix when able -currently on hold. Monitor I's and O's. Appreciate cardiology recommendation. Patient to follow-up with [place] cardiology upon discharge. Elevated blood lactic acid level: Possibly from severe LV dysfunction and transient hypoxia, leukocytosis trended down and normalized. Procalcitonin negative. UA negative. Blood culture no growth so far. Other chronic medical conditions: Continue with/resume home meds as and when ab le T2DM: Sliding scale insulin while in hospital CAD: Continue aspirin, statin, beta-karley, Plavix started. 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 Coordinate with PCP office to set up the test. Chronic anemia: Hemoglobin stable at 11. DVT prophylaxis: On Lovenox subcu Disposition: PT/OT, CM to assist with DC plan. PT recommends rehab. awaiting placement. Full code N.p.o. midnight of 05/16 - 05/17 for cardiac cath on 05/17. Admission and Anticipated Discharge Date Admission Date: May 08, 2023 Subjective Patient was seen and examined at bedside. Patient was lying in bed, reports no shortness of breath, denies chest pain. Patient denies cough, reports eating okay and moving bowels okay. Patient denies any chest pain or palpitation. Physical Exam Physical Exam: General- obese M in NAD. patient is blind. on 2L O2 via [place] Head- atraumatic Eyes- blind ENT- oropharynx clear Neck- supple, no JVD. Lungs- no crackles. no wheezing . Heart- regular rhythm; no murmur, no gallop. Abdomen- normal bowel sounds, soft, nontender, no distension. Extremities- b/l pretibial edema trace present. No erythema seen. Neuro- alert, oriented ; no facial palsy; no dysarthria; moves extremities. Skin- warm & dry Results & Data Results & Data Vital Signs (Past 12 Hours) Vital Signs Temp Pulse Pulse Resp BP Pulse Ox O2 Del Method 05/16/23 15:26 36.6 C 78 18 154/83 H 98 Nasal Cannula 05/16/23 11:36 72 05/16/23 11:32 36.6 C 76 18 135/74 99 Room Air 05/16/23 07:49 36.6 C 74 18 138/78 99 Nasal Cannula O2 Flow Rate 05/16/23 15:26 2 05/16/23 11:36 05/16/23 11:32 05/16/23 07:49 2
[2023-05-17 06:29] LABS: Calcium 9.1 mg/dl (8.6-10.3); Creatinine Clr Calc Pharmacy 60.5 ml/min; Est GFR (African American) 57.6 ml/min; Est GFR (Non-African American) 49.7 ml/min; Potassium 4.6 mmol/L (3.5-5.1)
[2023-05-17] MEDS: INSULIN ASPART PER UNIT CHARGE SC SCH ×2 (06:48→09:59)
--- NOTE | 2023-05-17 07:35 | Pre Anesthesia Assessment ---
Date of Service May 17, 2023 Pre Sedation Assessment Vital Signs Temp Pulse Pulse Resp BP Pulse Ox O2 Del Method 05/17/23 07:27 76 16 134/86 95 Room Air 05/17/23 03:03 36.5 C 72 18 131/78 99 Nasal Cannula 05/17/23 00:00 78 05/16/23 21:53 36.8 C 77 18 138/72 98 Nasal Cannula 05/16/23 19:40 Nasal Cannula 05/16/23 19:20 36.9 C 75 18 136/63 98 Nasal Cannula 05/16/23 16:22 81 05/16/23 15:26 36.6 C 78 18 154/83 H 98 Nasal Cannula 05/16/23 11:36 72 05/16/23 11:32 36.6 C 76 18 135/74 99 Room Air 05/16/23 07:49 36.6 C 74 18 138/78 99 Nasal Cannula O2 Flow Rate 05/17/23 07:27 05/17/23 03:03 2 05/17/23 00:00 05/16/23 21:53 1.5 05/16/23 19:40 1.5 05/16/23 19:20 1 05/16/23 16:22 05/16/23 15:26 2 05/16/23 11:36 05/16/23 11:32 05/16/23 07:49 2 Cardiovascular RRR, no murmur, no edema Respiratory normal respiratory effort, lungs clear to auscultation Pre-Sedation Airway Assessment Smoking Status: Former smoker Hx Sleep Apnea: No Hx Difficult Intubation: No Short, Thick Neck: Yes Thyromental Distance: > or= 3.5 Finger Breadths Oral Cavity: + WNL Mallampati Class: II ASA: ASA3 NPO Status Date of Last Intake of Fluids: 05/16/23 Time of Last Intake of Fluids: 08:00 Date of Last Intake of Solid Food: 05/16/23 Time of Last Intake of Solid Foods: 08:00 Notes The planned sedation has been discussed with the patient. Informed Consent was obtained. I have identified the patient, determined the appropriateness of sedation and have assessed the patient immediately prior to the procedure. All medicine(s) and interventions are by my order.
--- NOTE | 2023-05-17 08:14 | Post Anesthesia Assessment ---
Date of Service May 17, 2023 Post Sedation Assessment Vital Signs Temp Pulse Pulse Resp BP Pulse Ox O2 Del Method 05/17/23 07:27 76 16 134/86 95 Room Air 05/17/23 03:03 36.5 C 72 18 131/78 99 Nasal Cannula 05/17/23 00:00 78 05/16/23 21:53 36.8 C 77 18 138/72 98 Nasal Cannula 05/16/23 19:40 Nasal Cannula 05/16/23 19:20 36.9 C 75 18 136/63 98 Nasal Cannula 05/16/23 16:22 81 05/16/23 15:26 36.6 C 78 18 154/83 H 98 Nasal Cannula 05/16/23 11:36 72 05/16/23 11:32 36.6 C 76 18 135/74 99 Room Air O2 Flow Rate 05/17/23 07:27 05/17/23 03:03 2 05/17/23 00:00 05/16/23 21:53 1.5 05/16/23 19:40 1.5 05/16/23 19:20 1 05/16/23 16:22 05/16/23 15:26 2 05/16/23 11:36 05/16/23 11:32 Recovery Score Activity: Moves 4 extremities Respiration: Deep Breath/Cough Circulation: +/-20% PreAnes Value Consciousness: Fully Awake Oxygen Saturation: > 92% On Room Air Discharge Sedation Level of Care: Fast Track Phase II Post Sedation Plan On clinical assessment, the patient appears to have tolerated the sedation without complications. Patient is recovering as anticipated. Patient will continue to be monitored by nursing and may be discharged when sedation discharge criteria are met per below protocol. Upon Completions of procedure up to 15 minutes continue every 5 minute vital signs and the P.A.R. score; then discharge to a Phase I or Fast Track to Phase II per the following guidelines: * Discharge Patient to appropriate Phase II area if PAR is 8 or greater or return to pre- procedure baseline. The post - procedure orders will be as directed. * If PAR score is less than 8 or not return to pre-procedure baseline then patient will follow Phase I monitoring till PAR is reached for Phase II. The Phase I may be done in procedure room or may call to secure a Phase I area. * If naloxone or flumazenil are used for reversal, hold in Phase I for continued monitoring from when last reversal dose was given for a minimum of 60 minutes or longer pending the nurse and/or physician discretion of patient condition before discharge to Phase II. Please call the Sedation Physician to re-evaluate and complete post-note for discharge to Phase II area. Do NOT discharge from procedure sedation or Phase 1 until post- sedation evaluation note is complete by procedure /sedation MD Sedation Discharge Instructions to be given to the patient at discharge to home. [facility] Procedure Codes (Charges) Indication for Procedure Indication for procedure: New cardiomyopathy Sedation/Anesthesia Procedure 1: Sedation/Anesthesia: 28282 Mod Sedation by the same physician;Init15 Min Child Age 5 & Up (Initial 15 minutes, start 0750) Total Sedation Time (minutes): 19 Procedure 2: Sedation/Anesthesia: 88052 Mod Sedation by the same physician; Ea [id number] Minutes (Additional 4 minutes, and 0809)
[2023-05-17] MEDS: HEPARIN (PORCINE) 1000 UNIT/ML 10 ML (CATH LAB USE ONLY) ONE (09:16)
[2023-05-17] MEDS: fentaNYL citrate PF 100 MCG/2 ML VIAL ONE (09:16)
[2023-05-17] MEDS: OPTIRAY 350 ONE (09:17)
[2023-05-17] MEDS: LIDOCAINE 1% LOCAL 20 ML VIAL ONE (09:17)
[2023-05-17] MEDS: MIDAZOLAM HCL 1 MG/ML 2ML VIAL ONE (09:17)
[2023-05-17] MEDS: NITROGLYCERIN/D5W 100MCG/ML 20ML SYR ONE (09:17)
[2023-05-17] MEDS: niCARdipine HCL INJ 2.5 MG/ML 10 ML AMP ONE (09:17)
[2023-05-17] MEDS: IODIXANOL (VISIPAQUE) 320 MG/ML 100ML IV ONE (09:18)
--- NOTE | 2023-05-17 09:33 | Pharmacy Report ---
Pharmacy Glycemic Short Note 2 - Date of Service May 17, 2023 - Glycemic Short BSG Results (Last 24 hours): 05/16/23 05/16/23 05/16/23 11:05 16:11 20:02 Glucose POC Glucose 188 H 174 H 148 H 05/17/23 05/17/23 05/17/23 05:38 06:30 08:56 Glucose 129 H POC Glucose 141 H 138 H OUTPATIENT ANTIDIABETIC REGIMEN: * Metformin 500 mg PO BID * A1c = 7.4% ASSESSMENT: 05/17: * BSGs largely within goal the last 24h: 405-850-508-148-141mg/dL. Received 19 units of bolus insulin yesterday. * Pt NPO overnight for cardiac cath today- metformin discontinued. * Continue to hold basal. Diet re-initiated this AM- Novolog tightened. 05/15: * Metformin currently on hold for procedure today. Serum creat slightly elevated today at 1.66. Will continue to hold Metformin. * BSGs yesterday were well controlled. Novolog parameters continued the same. Basal insulin not ordered. 05/13 * Patient received total of 22 units of insulin yesterday, all correctional * Fasting BSG reasonable 139 mg/dL - will hold basal. Will consider resuming home metformin this evening. Will loosen novolog with start of first dose. 05/10 * Patient received 10 units of novolog yesterday. * BSGs have remained below 180 mg/dL, will continue to hold off on basal for now * Continue current novolog parameters 05/08 * Adrien is a T2DM admitted with an episode of shortness of breath and chest pain * BSG of 307 mg/dL in the ED. This improved to 166 mg/dL after only 5 units of short acting insulin. * During past admission (Mar 2023), patient required Lantus 5 units daily and Novolog 2-5 units ACHS. * Will start insulin conservatively given past use, A1c near goal on metformin, and NPO status. PLAN FOR INPATIENT GLYCEMIC CONTROL: * Bolus insulin * NovoLog per scale ACHS or Q6hrs while NPO * Goal Range: Low 110 mg/dL - High 140 mg/dL * Correction Factor: 25 mg/dL/unit * Nutritional / Prandial insulin per carb ratio of 1 unit per 9 grams CHO consumed
--- NOTE | 2023-05-17 12:46 | Cardiology Progress Note ---
Date of Service May 17, 2023 Assessment & Plan (1) HFrEF (heart failure with reduced ejection fraction): (2) Ischemic cardiomyopathy: (3) NSTEMI (non-ST elevated myocardial infarction): Plan Patient with complex cardiovascular and coronary disease admitted with acute heart failure, decline in LV systolic function (previous LVEF 40-45% decline to 20-25%), and NSTEMI. Complex coronary history includes LAD/circumflex territory myocardial infarction in 1998 with noted 90% distal LAD lesion, 100% circumflex occlusion, 60% RCA stenosis at that time. Cardiac catheterization demonstrating severe multivessel coronary disease including severe distal left main, severe diffuse LAD disease, and 100% mid RCA. Treatment options discussed including medical management versus transfer to tertiary care center for cardiothoracic surgery eval. Patient and family agreeable to transfer to [facility] in [place]. Patient accepted for transfer. Continue current cardiovascular medications including atorvastatin, metoprolol succinate, aspirin, and clopidogrel. Restart losartan. I spent a total of 65 minutes on the date of service in preparation, delivery, and documentation of the care provided to this patient, excluding any time spent in the performance of separately billed services. Admission and Anticipated Discharge Date Admission Date: May 08, 2023 Subjective 77-year-old patient seen and examined at the bedside after cardiac catheterization. Pulmonary review of images demonstrates severe multivessel disease including severe distal left main, severe diffusely diseased left anterior descending artery, and 100% occlusion of the mid RCA. Patient denies chest pain or shortness of breath. Family present at bedside including daughter who traveled from [place]. Review of Systems Review of Systems: All systems reviewed & are unremarkable except as noted in Subjective Physical Exam Constitutional: well nourished; no acute distress Respiratory: no respiratory distress, no labored breathing and no retractions Auscultation: no crackles, no rales, no rhonchi and no wheezes Cardiovascular: Rate/Rhythm: regular rate and regular rhythm Heart Sounds: normal S1 and normal S2; no murmur Vessels: radial pulses present; no JVD and no carotid bruit Extremities: no edema Gastrointestinal (Abdomen): Inspection/Auscultation: abdomen normal to inspection; abdomen not distended Percussion/Palpation: abdomen soft; abdomen nontender, no guarding and abdomen not rigid Neurologic: CN's II-XI intact bilaterally and moves all extremities; no focal motor deficits Results & Data Vital Signs (Past 12 Hours) Vital Signs Temp Pulse Pulse Resp BP Pulse Ox O2 Del Method 05/17/23 11:26 36.6 C 71 17 126/69 99 Room Air 05/17/23 10:26 77 18 119/67 98 Room Air 05/17/23 09:26 74 17 130/75 99 Room Air 05/17/23 08:53 36.4 C L 73 17 128/66 96 Room Air 05/17/23 08:36 36.5 C 73 16 136/66 92 Room Air 05/17/23 08:17 80 14 141/67 H 95 Room Air 05/17/23 07:27 76 16 134/86 95 Room Air 05/17/23 07:00 75 05/17/23 03:03 36.5 C 72 18 131/78 99 Nasal Cannula O2 Flow Rate 05/17/23 11:26 05/17/23 10:26 05/17/23 09:26 05/17/23 08:53 05/17/23 08:36 05/17/23 08:17 05/17/23 07:27 05/17/23 07:00 05/17/23 03:03 2 Laboratory Results Comprehensive Metabolic Panel 05/17/23 Range/Units 05:38 Sodium 135 L (136-145) mmol/L Potassium 4.6 (3.5-5.1) mmol/L Chloride 101 (98-107) mmol/L Carbon Dioxide 29 (21-32) mmol/L BUN 29 H (6-23) mg/dl Creatinine 1.38 (0.6-1.4) mg/dl Glucose 129 H (70-99(Fasting)) mg/dl Calcium 9.1 (8.6-10.3) mg/dl Intake and Output 05/16/23 05/17/23 05/17/23 22:59 06:59 14:59 Output Total 1999 Balance -700 / -1220 -600 / -1220 Output: Urine 1999 Other: Weight 111.3 kg Weight Measurement Method Built in [facility]
--- NOTE | 2023-05-17 15:59 | Discharge Summary ---
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 As per patient had some shortness of breath around 11:30 PM last night but he went to sleep and he woke up around 2:30 AM and was struggling to breathe and somewhat diaphoretic when she called EMS and brought him here. In the ER he had an episode of chest pain but that got resolved now. Patient is sleeping but arousable. Patient says now he is feeling better. Denies any chest pain currently. Shortness of breath improved as per patient. No headache. No fevers. No nausea. No runny nose. No sore throat. Appetite is okay. No abdominal pain. Somewhat constipated. Ambulates with walker at home. Past medical history. As mentioned above Past surgical history. Left heart catheterization. Right knee arthroscopy. Bilateral cataract surgeries. Social history. . Quit smoking 1978. No alcohol use. No drug use. Family history. Father had CO. Stroke. Mother had pulmonary embolism. Sister has obesity. Admission Exam Per Admitting Provider General- Not in acute distress. patient is blind. Head- atraumatic Eyes- blind ENT- oropharynx clear Neck- supple, no JVD. Lungs- clear to auscultation no wheezing or crackles. Heart- regular rhythm; no murmur, no gallop. Abdomen- normal bowel sounds, soft, nontender, no distension. Extremities- b/l pretibial edema present. No erythema seen. Neuro- alert, oriented ; ; no facial palsy; no dysarthria; moves extremities. Skin- warm & dry Principal Diagnosis Multivessel CAD Discharge Exam General- obese M in NAD. patient is blind. on 2L O2 via NC Head- atraumatic Eyes- blind ENT- oropharynx clear Neck- supple, no JVD. Lungs- no crackles. no wheezing . Heart- regular rhythm; no murmur, no gallop. Abdomen- normal bowel sounds, soft, nontender, no distension. Extremities- b/l pretibial edema trace present. No erythema seen. Neuro- alert, oriented ; no facial palsy; no dysarthria; moves extremities. Skin- warm & dry Discharge Data Allergies Allergy/AdvReac Type Severity Reaction Status Date / Time tramadol [From Ultram] Allergy Severe Seizure Verified 05/08/23 04:34 haloperidol [From Haldol] Allergy Unknown Unknown Verified 05/08/23 04:34 lisinopril AdvReac Cough Verified 05/08/23 04:34 Consultations 05/08/23 05:36 ED Decision to Admit Stat 05/08/23 10:15 Consult Cardiology Routine Procedures Performed Operation Date: 05/17/23 07:00 Actual Procedures p Cineradiography w/Routine Exam - Adrien Padron MD, PhD p Cath, Coronaries ONLY (no LV) - Adrien Padron MD, PhD s Ultrasound Vascular Access - Adrien Padron MD, PhD Ordered Studies 05/14/23 12:18 CL Cath Imgs for PACS use only Routine 05/17/23 07:39 CL Cath Imgs for PACS use only Routine Hospital Course (1) HFrEF (heart failure with reduced ejection fraction): 77 yo M with past medical history significant for type 2 diabetes, hyperlipidemia, CAD, obesity, occipital cerebral infarction, completely blind, focal seizures currently not on any medications, status post carotid endarterectomy, chronic systolic CHF, PVD, chronic hyponatremia, hypothyroidism, GERD, BPH, 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 He was managed for the following: Non-ST elevated CO Ischemic cardiomyopathy Multivessel CAD: Cardiac cath 05/17 revealed severe multivessel CAD including severe distal left main, severe diffuse LAD disease and 100% mid RCA disease. Patient and family opted for cardiothoracic surgery evaluation and transfer to tertiary care. Patient accepted for transfer. An episode of chest pain prior to arrival. Resolved by presentation at the ED. EKG w/no acute ST changes Initial troponin 117 and repeat troponin 429 -> peaked at 6,700s continues to have recurrent symptoms of unstable angina Status post 48-hour heparin drip. Echo with a kinesis of apical segments with diffuse hypokinesis, lateral wall is relatively spared. LV systolic function is severely reduced, LVEF 20 to 25%. Grade 1 diastolic dysfunction. Comparison echo from past with EF of 40 to 45% Cardiology evaluated, continue with aspirin 81 Mg daily and Plavix 75 Mg daily, continue with metoprolol 25 Mg daily, continue statin 40 Mg daily. Follow-up with [place] [facility]ology clinic as outpatient. Clinical volume status has improved, Low-sodium diet. d/w cardio 05/17, transferred to tertiary [facility] for cardiothoracic evaluation. Losartan resumed. Acute heart failure with reduced ejection fraction: Echo from March 2023 with EF of 40 to 45%, on home Lasix 30 mg daily, echo this admission with EF of 20 to 25%. CXR with mild pulmonary edema. Improvement noted in repeat CXR. Status post diuresis per cardiology, c/w home dose of lasix when able -currently on hold. Monitor I's and O's. Appreciate cardiology recommendation. Patient to follow-up with [place] [facility]ology upon discharge. Elevated blood lactic acid level: Possibly from severe LV dysfunction and transient hypoxia, leukocytosis trended down and normalized. Procalcitonin negative. UA negative. Blood culture no growth so far. Other chronic medical conditions: Continue with/resume home meds as and when able T2DM: Sliding scale insulin while in hospital CAD: Continue aspirin, statin, beta-karley, Plavix started. 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 Coordinate with PCP office to set up the test. Chronic anemia: Hemoglobin stable at 11. DVT prophylaxis: On Lovenox subcu Disposition: To [facility] for cardiothoracic surgery evaluation. Full code Home Health Attestation I certify that this patient is under my care and that I, or a physicians catering administrative assistant working with me, had a face to-face encounter that meets the [facility] [id number] encounter requirements with this patient. The encounter with the patient was in whole, or in part, for the following medical condition, which is the primary reason for home health care (list medical condition): resumption of care; acute CHF I certify that, based on my findings, the following services are medically necessary home health services: My clinical findings support the need for the above services because: Caregiver Instruct Med Mgmt, Safety, Disease Process, Signs to Report Home Safety Assessment Medication Compliance OT Assess ADL Status and Restore Function w ADLs PT Assessment for Endurance / Balance / Strength PT Eval for Safety and Mobility PT Eval for Safety, Gait Training, Assistive Devices PT Gait and Balance Training, Strengthening and Safety Safety Skilled Nsg Assessment Skilled Nsg Assess Pt Illness, Disease and Sx Monitoring S/S to Report to Provider Teach on Disease Management and Interventions Vital Signs Further, I certify that my clinical findings support that this patient is homebound (i.e. absences from home require considerable and taxing effort and are for medical reasons or [employer] or infrequently or of short duration when for other reasons) because: Supportive Aid - Walker Transportation Assistance/Unable to Leave Home Unassisted Certification for Home Health Services: Based on the above findings, I certify that this patient is confined to the home and needs intermittent fdc care, physical therapy and/or speech therapy or continues to need occupational therapy. The patient is under my care, and I have initiated the establishment of the plan of care. This patient will be followed by a physician who will periodically review the plan of care. Total Time Total Time Spent Total Time Spent (In Minutes): 45 Discharge Plan Discharge Items Patient Disposition: Transfer Acute Care Hospital Reason For Visit: acute chf Discharge Diagnosis: Severe multivessel CAD Activity: As commented below Activity Comment: Per tertiary care center recommendation Non-emergency contact: Primary Care Provider Call non-emergency contact if: you have any medication questions and your temperature is above 101 Follow-up/Referrals: Raysa Hobbs M.D. [Primary Care Provider] - Diet: Carb Consistent or DM2 and Heart Healthy Addtl Attending Provider Instructions: You are being discharged to critical access hospital center for cardiothoracic surgery evaluation of your severe multivessel CAD. Your prior to arrival Home medications are continued as it is in discharge med [facility], your current inpatient medication are copied and pasted here for the sake of comparison. Current Inpatient Medications Acetaminophen (Acetaminophen 325 Mg Tab) 650 mg PO Q4H PRN PRN Reason: Pain or Fever Stop: 06/07/23 10:14 Last Admin: 05/09/23 05:30 Dose: 650 mg Albuterol (Albuterol 0.083% Nebu Soln 3 Ml Vial) 2.5 mg INH Q4H PRN; Protocol PRN Reason: Shortness Of Breath Or Wheezing Stop: 06/07/23 10:14 Ascorbic Acid (Ascorbic Acid 500 Mg Tab) 500 mg PO DAILY [facility] Stop: 06/07/23 10:29 Last Admin: 05/17/23 10:02 Dose: 500 mg Aspirin (Aspirin 81 Mg Ectab) 81 mg PO QAM [facility] Stop: 06/09/23 08:59 Last Admin: 05/17/23 09:18 Dose: 81 mg Atorvastatin Calcium (Atorvastatin 40 Mg Tab) 40 mg PO HS [facility] Stop: 06/07/23 20:59 Last Admin: 05/16/23 19:43 Dose: 40 mg Cetirizine HCl (Cetirizine Hcl 10 Mg Tablet) 10 mg PO DAILY [facility] Stop: 06/07/23 10:29 Last Admin: 05/17/23 09:17 Dose: 10 mg Clopidogrel Bisulfate (Clopidogrel Bisulfate 75 Mg Tab) 75 mg PO QAM [facility] Stop: 06/08/23 10:14 Last Admin: 05/17/23 09:18 Dose: 75 mg Dextrose (Dextrose 50% 50 Ml Syringe) 25 - 50 ml IV UD PRN; Protocol PRN Reason: Hypoglycemia Protocol Stop: 06/07/23 10:14 Docusate Sodium (Docusate Sodium 100 Mg Cap) 100 mg PO BID [facility] Stop: 06/07/23 10:29 Last Admin: 05/17/23 09:18 Dose: 100 mg Enoxaparin Sodium (Enoxaparin Inj 40 Mg/0.4 Ml Syr) 40 mg SQ QAM [facility] Stop: 06/17/23 08:59 Escitalopram Oxalate (Escitalopram Oxalate 10 Mg Tab) 10 mg PO QAM [facility] Stop: 06/07/23 10:29 Last Admin: 05/17/23 09:18 Dose: 10 mg Famotidine (Famotidine 20 Mg Tab) 20 mg PO BIDM [facility] Stop: 06/07/23 10:29 Last Admin: 05/17/23 09:17 Dose: 20 mg Ferrous Sulfate (Ferrous Sulfate 325 Mg Tab) 325 mg PO DAILY [facility] Stop: 06/07/23 10:29 Last Admin: 05/17/23 09:17 Dose: 325 mg Finasteride (Finasteride 5 Mg Tab) 5 mg PO QDL [facility] Stop: 06/07/23 11:29 Last Admin: 05/17/23 12:38 Dose: 5 mg Furosemide (Furosemide 20 Mg Tab) 30 mg PO DAILY [facility] Stop: 06/12/23 10:59 Last Admin: 05/14/23 09:03 Dose: 30 mg Glucagon (Glucagon For Inj 1 Mg Vial) 1 mg SQ UD PRN; Protocol PRN Reason: Hypoglycemia Protocol Stop: 06/07/23 10:14 Glucose (Glucose 10 Tab/Tube) 4 - 8 tab PO UD PRN; Protocol PRN Reason: Hypoglycemia Treatment Stop: 06/07/23 10:14 Glucose (Glucose 40% Gel 15 Gm Tube) 15 - 30 gm PO UD PRN; Protocol PRN Reason: Hypoglycemia Protocol Stop: 06/07/23 10:14 Insulin Aspart (Insulin Aspart Per Unit Charge) 0 units SC ACHS [facility] Stop: 06/16/23 08:59 Last Admin: 05/17/23 12:38 Dose: 8 units Levothyroxine Sodium (Levothyroxine Sodium 50 Mcg Tablet) 50 mcg PO DAILYBB [facility] Stop: 06/07/23 10:29 Last Admin: 05/17/23 06:32 Dose: 50 mcg Losartan Potassium (Losartan Potassium 25 Mg Tab) 25 mg PO QAM [facility] Stop: 06/10/23 09:29 Last Admin: 05/15/23 07:49 Dose: 25 mg Metoprolol Succinate (Metoprolol Succ 25mg Ext Rel Tab) 25 mg PO DAILY [facility] Stop: 06/07/23 10:14 Last Admin: 05/17/23 09:18 Dose: 25 mg Miscellaneous (Carbohydrates For Hypoglycemia ) 15 - 30 gm PO UD PRN PRN Reason: Hypoglycemia Protocol Stop: 06/07/23 10:14 Miscellaneous Information (Pharmacy Glycemic Mgmt Consult) 1 each N/A UD PRN; Protocol PRN Reason: Consult Stop: 06/07/23 10:14 Multivitamins (Multivitamin Tab) 1 tab PO DAILY [facility] Stop: 06/07/23 10:14 Last Admin: 05/17/23 09:18 Dose: 1 tab Nitroglycerin (Nitroglycerin Sl 0.4 Mg/Tab Tab) 0.4 mg SL Q5M PRN PRN Reason: Chest Pain Stop: 06/07/23 10:14 Potassium Chloride (Potassium Chloride 10 Meq Tabcr) 10 meq PO DAILY [facility] Stop: 06/07/23 10:29 Last Admin: 05/17/23 10:02 Dose: 10 meq Tamsulosin HCl (Tamsulosin Hcl 0.4 Mg Cap) 0.4 mg PO DAILY [facility] Stop: 06/07/23 10:29 Last Admin: 05/17/23 09:18 Dose: 0.4 mg Pending Studies at Discharge: No Stand-Alone Forms: My [facility] Skilled Items Patient informed of condition?: Yes DNR: No Discharge Level of Care: Other Communicable Disease: No Discharge Prognosis: Other Lines: Peripheral IV Urinary Catheter: No Medications and DC Order Prescriptions: Continued tamsulosin 0.4 mg capsule 0.4 mg PO DAILY acetaminophen 325 mg capsule 975 mg PO TID PRN (Reason: PAIN/FEVER/HEADACHE) aspirin 325 mg tablet 325 mg PO DAILY ferrous sulfate 325 mg (65 mg iron) tablet,delayed release (DR/EC) 325 mg PO DAILY Patient Comments: take with vitamin C metformin 500 mg tablet 500 mg PO BID Patient Comments: with evening meal Rx Instructions: Take 1000mg by mouth every morning and 500mg by mouth at bedtime valacyclovir 1 gram tablet 2,000 mg PO DAILY PRN (Reason: Outbreak) Patient Comments: two tables a day for H.Labialis. Take two tablets twice a day for 1 day only for outbreak. cetirizine 10 mg Tablet 10 mg PO DAILY finasteride 5 mg Tablet 5 mg PO QDL escitalopram oxalate [Lexapro] 10 mg Tablet 10 mg PO QAM ascorbic acid (vitamin C) 500 mg tablet 500 mg PO DAILY famotidine 20 mg tablet 20 mg PO BIDM Patient Comments: hold while taking ceftin albuterol sulfate 2.5 mg /3 mL (0.083 %) Solution For Nebulization 2.5 mg INHALATION Q4H PRN (Reason: Shortness Of Breath Or Wheezing) potassium chloride 20 mEq Tablet Extended Release 10 meq PO DAILY Rx Instructions: 1/2 TABLET DAILY multivitamin Tablet 1 tab PO DAILY metoprolol succinate 50 mg Tablet Extended Release 24 Hr 25 mg PO DAILY furosemide 20 mg Tablet 30 mg PO DAILY Rx Instructions: ONE AND ONE HALF TABLET DOSE DAILY atorvastatin 80 mg Tablet 40 mg PO HS levothyroxine 50 mcg Tablet 50 mcg PO .DAILY @0600 docusate sodium [Colace] 100 mg capsule 100 mg PO BID Qty: 60 0RF Discharge Orders: Discharge Order (Routine); Ordered 05/17/23 Ordered By: Zaki Chowdhury Admission Data Admit Date/Time: 05/08/23 06:28 Attending Provider: Zaki Chowdhury Admit Provider: Geoffrey Wiggins Primary Care Provider: Raysa Hobbs Other Providers: Geoffrey Wiggins; Adrien Miranda; [facility]; [facility]
--- NOTE | 2023-05-17 16:36 | Cardiac Catheterization ---
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 Clinical evaluation leading new cardiomyopathy to the procedure New cardiomyopathy CAD Presenation: Non STEMI Anginal Classification: No Symptoms Heart Failure: NYHA Class: CCS IV Cardiogenic Shock within 24 Hours: No Cardiac Arrest within 24 Hours: No Imaging Studies Past 6 Months: Yes Stress Studies Past 6 Months: No Coronary Anatomy Dominant: Co-Dominant Left Main (% Stenosis): Normal LAD (% Stenosis): Proximal (Diffuse severe), Mid (99 100%) and Distal (99-100) D1 (% Stenosis): Ostial (70%) Circumflex (% Stenosis): Proximal (70 to 80%) OM1 (% Stenosis): Normal L PL1 (% Stenosis): Normal L PDA (% Stenosis): Normal RCA (% Stenosis): Proximal (100%) R PDA (% Stenosis): Normal Diagnostic Physicians Name: Adrien Padron MD, PhD Closure Device Percutaneous Entry Location: Radial Closure Device: Radial Band Recommendations: CABG Cardiac Cath Procedure Full Procedure Date May 17, 2023 Pre-Procedure Diagnosis Pre-Procedure Diagnosis: Cardiomyopathy AUC Score AUC Score: 07 Post-Procedure Diagnosis Post-Procedure Diagnosis: Severe CAD Procedure(s) Performed Procedure(s) Performed: Coronary Angiography and Ultrasound Guided Vascular Access Grinder Adrien Padron MD, PhD Estimated Blood Loss Estimated Blood Loss: 5 cc Medication(s) Medication(s): Fentanyl, Heparin, Lidocaine 1%, Nicardipine, Nitroglycerin and Versed Summary of Findings Brief description: Patient was brought to the cardiac catheterization suite where he was shaved and prepped in a sterile fashion. Sedated using IV Versed and fentanyl. Soft tissues of the right wrist were anesthetized using 2 mL of 1% Xylocaine. Using the ultrasound for guidance (image saved), the right radial artery was accessed and a 6 Welsh radial artery glide sheath was placed. All catheters were advanced and exchanged over a 0.035 J-tip wire. Patient was provided anticoagulation with IV heparin and antispasmodics including nicardipine and nitroglycerin. Left coronary angiography in orthogonal views with a 5 Welsh [place] 4 diagnostic catheter. Right coronary angiography in orthogonal views with a 5 Welsh [place] 4 diagnostic catheter. Diagnostic catheters were removed. Radial artery sheath was removed. Hemostasis was obtained using the vasc band. Patient remained hemodynamically stable and asymptomatic. He was returned to the recovery area. This ended the case. Coronary angiography findings: SUB-[id number]-[id number] vessel bifurcating into LAD and circumflex. Distal 50 to 60% stenosis with mild calcification. [id number] and transapical. Proximally there is diffuse disease which appears likely to be severe given the overall narrowing/small size of the vessel. The mid segment appears to be 99 to 100% stenosis. Ostium of the diagonal has 70% stenosis. The distal LAD has early 99 to 100%. RCm-pfcmb-qvuakcq and possibly codominant. It is tortuous and AV groove in the proximal segment has a 70 to 80% stenosis. It then becomes a large branching OM1. This vessel has no significant disease. RCA-medium caliber and probably codominant. 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 PDA is small. The posterolateral branch is longer and of the larger caliber. The early portion of the anomalous branch has diffuse mild less than 30% disease. Relatively small caliber. The main RCA has a proximal 100% occlusion at the level of the large RV marginal branch. There is a long but small caliber PDA which is seen to fill late. Summary: 1. Severe multivessel coronary disease as described. There may be some vessels which are appropriate targets for bypass grafting. 2. Recommend cardiothoracic surgical evaluation regarding potential for coronary artery bypass grafting. 3. 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 Hemodynamics Rest Ao:: 83/55 mmHg Final Ao: 88/58 mm LV: Not performed Recommendations Recommendations: CABG Radiation Exposure (mGy) 1317 mGy, fluoroscopy time 3.3-minute Contrast (mls) 75 mL Anesthesia 1 mg Versed, 25 mcg fentanyl IV. 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 Any exceptions are noted below. [facility] Procedure Codes Cardiac Catheterization Procedure 1: Cardiovascular Cath Procedures: 96612 Coronaries Therapeutic Services & Ancillary Procedure 1: Cardiovascular Tx and Anc Procedures: 99035 Ultrasonic Guidance Vascular Access Moderate Sedation Procedure 1: Sedation/Anesthesia: 10265 Mod Sedation by the same physician;Init15 Min Child Age 5 & Up (Initial 15-minute, start time 0750) Procedure 2: Sedation/Anesthesia: 19655 Mod Sedation by the same physician; Ea [id number] Minutes (Additional 4 minutes, end time 08) PG Care Time/CCT Total # of Minutes Spent Total Time Spent with Patient: Total time spent is greater than 50% in coordination of care (as documented) at patient's floor/unit and/or counseling patient:
[2023-05-18 04:26] LABS: BUN Creatinine Ratio 20.5 (10-20); Calcium 9.1 mg/dl (8.6-10.3); Creatinine Clr Calc Pharmacy 57.2 ml/min; Est GFR (African American) 53.8 ml/min; Est GFR (Non-African American) 46.4 ml/min; Potassium 4.5 mmol/L (3.5-5.1)
[2023-05-18] MEDS: ENOXAPARIN INJ 40 MG/0.4 ML SYR SQ SCH (09:11)
--- NOTE | 2023-05-18 11:24 | Hospitalist Progress Note ---
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 He is managed for the following: Non-ST elevated DC Ischemic cardiomyopathy Multivessel CAD: Cardiac cath 05/17 revealed severe multivessel CAD including severe distal left main, severe diffuse LAD disease and 100% mid RCA disease. Patient and family opted for cardiothoracic surgery evaluation and transfer to tertiary care. Patient accepted for transfer. An episode of chest pain prior to arrival. Resolved by presentation at the ED. EKG w/no acute ST changes Initial troponin 117 and repeat troponin 429 -> peaked at 6,700s continues to have recurrent symptoms of unstable angina Status post 48-hour heparin drip. Echo with a kinesis of apical segments with diffuse hypokinesis, lateral wall is relatively spared. LV systolic function is severely reduced, LVEF 20 to 25%. Grade 1 diastolic dysfunction. Comparison echo from past with EF of 40 to 45% Cardiology evaluated, continue with aspirin 81 Mg daily and Plavix 75 Mg daily, continue with metoprolol 25 Mg daily, continue statin 40 Mg daily. Follow-up with [place] [facility] clinic as outpatient. Clinical volume status has improved, Low-sodium diet. d/w cardio 05/17, transferred to tertiary care center for cardiothoracic evaluation. Losartan resumed. Acute heart failure with reduced ejection fraction: Echo from March 2023 with EF of 40 to 45%, on home Lasix 30 mg daily, echo this admission with EF of 20 to 25%. CXR with mild pulmonary edema. Improvement noted in repeat CXR. Status post diuresis per cardiology, c/w home dose of lasix when able -currently on hold. Monitor I's and O's. Appreciate cardiology recommendation. Patient to follow-up with [place] [facility] upon discharge. Elevated blood lactic acid level: Possibly from severe LV dysfunction and transient hypoxia, leukocytosis trended down and normalized. Procalcitonin negative. UA negative. Blood culture no growth so far. Other chronic medical conditions: Continue with/resume home meds as and when able T2DM: Sliding scale insulin while in hospital CAD: Continue aspirin, statin, beta-karley, Plavix started. PVD status post stent: Continue with aspirin and statin PSVT: Continue metoprolol succinate BPH: Continue home Flomax and finasteride Hypothyroidism: Continue Synthroid Hypertension: Continue metoprolol succinate Hyperlipidemia: Continue statin Occipital infarction, blindness: Continue aspirin and statin [place] cell cancer left ear: Status post surgery, postauricular lymphadenopathy noted, recommend biopsy upon discharge. Coordinate with PCP office to set up the test. Chronic anemia: Hemoglobin stable at 11. DVT prophylaxis: On Lovenox subcu Disposition: To [facility] for cardiothoracic surgery evaluation. Full code Admission and Anticipated Discharge Date Admission Date: May 08, 2023 Subjective Patient was seen and examined at bedside. Patient was lying in bed, reports no shortness of breath, denies chest pain. Patient denies cough, s/p cardiach cath -severe multivessel CAD Patient denies any chest pain or palpitation. Physical Exam Physical Exam: General- obese M in NAD. patient is blind. on 2L O2 via [place] Head- atraumatic Eyes- blind ENT- oropharynx clear Neck- supple, no JVD. Lungs- no crackles. no wheezing . Heart- regular rhythm; no murmur, no gallop. Abdomen- normal bowel sounds, soft, nontender, no distension. Extremities- b/l pretibial edema trace present. No erythema seen. Neuro- alert, oriented ; no facial palsy; no dysarthria; moves extremities. Skin- warm & dry Results & Data Results & Data Vital Signs (Past 12 Hours) Vital Signs Temp Pulse Pulse Resp BP Pulse Ox O2 Del Method 05/18/23 09:00 Nasal Cannula 05/18/23 08:00 74 05/18/23 07:13 36.9 C 73 18 135/73 98 Nasal Cannula 05/18/23 03:20 36.9 C 77 18 149/75 H 99 Nasal Cannula 05/18/23 00:00 73 O2 Flow Rate 05/18/23 09:00 1.5 05/18/23 08:00 05/18/23 07:13 1.5 05/18/23 03:20 1.5 05/18/23 00:00
--- NOTE | 2023-05-18 16:23 | Cardiology Progress Note ---
Date of Service May 18, 2023 Assessment & Plan (1) HFrEF (heart failure with reduced ejection fraction): (2) Ischemic cardiomyopathy: (3) NSTEMI (non-ST elevated myocardial infarction): Plan Patient with complex cardiovascular and coronary disease admitted with acute heart failure, decline in LV systolic function (previous LVEF 40-45% decline to 20-25%), and NSTEMI. Complex coronary history includes LAD/circumflex territory myocardial infarction in 1998 with noted 90% distal LAD lesion, 100% circumflex occlusion, 60% RCA stenosis at that time. Cardiac catheterization demonstrating severe multivessel coronary disease. Treatment options discussed including medical management versus transfer to tertiary care center for cardiothoracic surgery eval. due to insurance restrictions, patient cannot be transferred to [facility]. He is agreeable to transfer to the [facility] in [place]. Continue current cardiovascular medications including atorvastatin, metoprolol succinate, losartan aspirin, and clopidogrel. I spent a total of 30 minutes on the date of service in preparation, delivery, and documentation of the care provided to this patient, excluding any time spent in the performance of separately billed services. Admission and Anticipated Discharge Date Admission Date: May 08, 2023 Subjective Patient seen examined the bedside. Unfortunate, insurance will not cover transfer to [facility] in [place]. Patient will likely be transferred to the [facility] in [place]. Significant other has questions regarding transfer. Patient denies chest pain or shortness of breath. Remains in sinus rhythm on telemetry. Review of Systems Review of Systems: All systems reviewed & are unremarkable except as noted in Subjective Physical Exam Constitutional: well nourished; no acute distress Respiratory: no respiratory distress, no labored breathing and no retractions Auscultation: no crackles, no rales, no rhonchi and no wheezes Cardiovascular: Rate/Rhythm: regular rate and regular rhythm Heart Sounds: normal S1 and normal S2; no murmur Vessels: radial pulses present; no JVD and no carotid bruit Extremities: no edema Gastrointestinal (Abdomen): Inspection/Auscultation: abdomen normal to inspection; abdomen not distended Percussion/Palpation: abdomen soft; abdomen nontender, no guarding and abdomen not rigid Neurologic: CN's II-XI intact bilaterally and moves all extremities; no focal motor deficits Results & Data Vital Signs (Past 12 Hours) Vital Signs Temp Pulse Pulse Resp BP Pulse Ox O2 Del Method 05/18/23 16:03 37.0 C 73 18 121/68 99 Nasal Cannula 05/18/23 15:05 71 05/18/23 11:35 36.6 C 72 18 127/71 99 Room Air 05/18/23 09:00 Nasal Cannula 05/18/23 08:00 74 05/18/23 07:13 36.9 C 73 18 135/73 98 Nasal Cannula O2 Flow Rate 05/18/23 16:03 05/18/23 15:05 05/18/23 11:35 05/18/23 09:00 1.5 05/18/23 08:00 05/18/23 07:13 1.5 Laboratory Results Comprehensive Metabolic Panel 05/18/23 Range/Units 03:26 Sodium 134 L (136-145) mmol/L Potassium 4.5 (3.5-5.1) mmol/L Chloride 100 (98-107) mmol/L Carbon Dioxide 29 (21-32) mmol/L BUN 30 H (6-23) mg/dl Creatinine 1.46 H (0.6-1.4) mg/dl Glucose 142 H (70-99(Fasting)) mg/dl Calcium 9.1 (8.6-10.3) mg/dl Intake and Output 05/18/23 05/18/23 05/18/23 06:59 14:59 22:59 Intake Total 615 / 615 Output Total 75 / 75 Balance 540 / 540 Intake: Oral 615 / 615 Output: Urine 75 / 75 Other: # Unmeasured Voids 1 Weight 111.5 kg Weight Measurement Method Built in [facility]
--- NOTE | 2023-05-18 16:51 | Hospitalist Progress Note ---
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 He is managed for the following: Non-ST elevated NM Ischemic cardiomyopathy Multivessel CAD: Cardiac cath 05/17 revealed severe multivessel CAD including severe distal left main, severe diffuse LAD disease and 100% mid RCA disease. Patient and family opted for cardiothoracic surgery evaluation and transfer to tertiary care. Patient accepted for transfer. An episode of chest pain prior to arrival. Resolved by presentation at the ED. EKG w/no acute ST changes Initial troponin 117 and repeat troponin 429 -> peaked at 6,700s continues to have recurrent symptoms of unstable angina Status post 48-hour heparin drip. Echo with a kinesis of apical segments with diffuse hypokinesis, lateral wall is relatively spared. LV systolic function is severely reduced, LVEF 20 to 25%. Grade 1 diastolic dysfunction. Comparison echo from past with EF of 40 to 45% Cardiology evaluated, continue with aspirin 81 Mg daily and Plavix 75 Mg daily, continue with metoprolol 25 Mg daily, losartan, and statin 40 Mg daily. Follow- up with [place] [facility] clinic as outpatient. Clinical volume status has improved, Low-sodium diet. Awaiting transfer to tertiary care center for cardiothoracic evaluation. Acute heart failure with reduced ejection fraction: Echo from March 2023 with EF of 40 to 45%, on home Lasix 30 mg daily, echo this admission with EF of 20 to 25%. CXR with mild pulmonary edema. Improvement noted in repeat CXR. Status post diuresis per cardiology, c/w home dose of lasix when able -currently on hold. Monitor I's and O's. Appreciate cardiology recommendation. [facility]. Elevated blood lactic acid level: Possibly from severe LV dysfunction and lucio sient hypoxia, leukocytosis trended down and normalized. Procalcitonin negative. UA negative. Blood culture no growth so far. Other chronic medical conditions: Continue with/resume home meds as and when able T2DM: Sliding scale insulin while in hospital CAD: Continue aspirin, statin, beta-karley, Plavix started. PVD status post stent: Continue with aspirin and statin PSVT: Continue metoprolol succinate BPH: Continue home Flomax and finasteride Hypothyroidism: Continue Synthroid Hypertension: Continue metoprolol succinate Hyperlipidemia: Continue statin Occipital infarction, blindness: Continue aspirin and statin [place] cell cancer left ear: Status post surgery, postauricular lymphadenopathy noted, recommend biopsy upon discharge. Coordinate with PCP office to set up the test. Chronic anemia: Hemoglobin stable at 11. DVT prophylaxis: On Lovenox subcu Disposition: To [facility] for cardiothoracic surgery evaluation. likely to [place] at [place]. Full code Admission and Anticipated Discharge Date Admission Date: May 08, 2023 Subjective Patient was seen and examined at bedside. Patient was lying in bed, reports no shortness of breath, denies chest pain. Patient denies cough, s/p cardiach cath 05/17/23 -severe multivessel CAD Patient denies any chest pain or palpitation. Pt couldn't get to [facility] due to insurance issues, now agreeable to go to [place] at [place]. Physical Exam Physical Exam: General- obese M in NAD. patient is blind. on 2L O2 via [place] Head- atraumatic Eyes- blind ENT- oropharynx clear Neck- supple, no JVD. Lungs- no crackles. no wheezing . Heart- regular rhythm; no murmur, no gallop. Abdomen- normal bowel sounds, soft, nontender, no distension. Extremities- b/l pretibial edema trace present. No erythema seen. Neuro- alert, oriented ; no facial palsy; no dysarthria; moves extremities. Skin- warm & dry Results & Data Results & Data Vital Signs (Past 12 Hours) Vital Signs Temp Pulse Pulse Resp BP Pulse Ox O2 Del Method 05/18/23 16:03 37.0 C 73 18 121/68 99 Nasal Cannula 05/18/23 15:05 71 05/18/23 11:35 36.6 C 72 18 127/71 99 Room Air 05/18/23 09:00 Nasal Cannula 05/18/23 08:00 74 05/18/23 07:13 36.9 C 73 18 135/73 98 Nasal Cannula O2 Flow Rate 05/18/23 16:03 05/18/23 15:05 05/18/23 11:35 05/18/23 09:00 1.5 05/18/23 08:00 05/18/23 07:13 1.5
== END 2023-05-18 20:40 | disposition short-term general hospital (02) | DRG 281 ==
LOC: ED 04:09 → SUATTDRO 06:28 → EDINP 06:28 → 4W 19:59
PROC: CLB.CCO (2023-05-17 07:00)